=== PATIENT | female | born 1945 | race Caucasian/White ===

== ENCOUNTER → 2018-03-25 08:38 | Outpatient (CLI) | payer MEDICARE, OTHER, SELFPAY ==
[2018-03-25 10:04] LABS: AST(SGOT) 22 U/L (15-37); Alanine Aminotransfer ALT/SGPT 31 U/L (13-56); Albumin, Serum 3.8 g/dL (3.2-5.0); Alkaline Phosphatase 67 U/L (45-117); Bilirubin, Direct 0.13 mg/dL (0.00-0.30); Cholesterol 166 mg/dL (200); Globulin 3.4 g/dL (2.2-4.2); High Density Lipoprotein 51 mg/dL; Protein, Total 7.2 g/dL (6.4-8.2); Triglycerides 190 mg/dL; Very Low Density Lipoprotein 38 mg/dL (5-40)
== END ==
PROVIDERS: Nurse Practitioner Family; Family Provider Family Medicine; PCP Family Medicine; Visit Provider Internal Medicine Cardiovascular Disease
DX: E78.5 Hyperlipidemia, unspecified (principal); Z79.899 Other long term (current) drug therapy
CPT/HCPCS: 36415; 80061; 80076

== ENCOUNTER → 2019-03-19 | Outpatient (CLI) | payer MEDICARE, OTHER, SELFPAY ==
[2019-02-02 11:11] VITALS: BMI 27.6
--- NOTE | 2019-03-19 12:59 | ECHOD_ITS ---
Reason For Study: S/P AVR Procedure This was a 2D Doppler, Color Flow transthoracic echocardiogram. Exam performed in department. Left Ventricle Normal size and thickness. The estimated ejection fraction is 65 %. Stage 1 diastolic dysfunction. No regional wall motion abnormalities noted. Right Ventricle Mildly dilated right ventricle. Normal systolic function. Atria Normal left atrium. Normal right atrium. Normal atrial septum. Mitral Valve The mitral valve is structurally normal. No prolapse or stenosis seen. Tricuspid Valve Normal tricuspid valve. Mild (1+) tricuspid valve insufficiency. Right ventricular systolic pressure estimated to be 32 mmHg. Aortic Valve Peak aortic valve gradient 18 mmHg. Mean aortic valve gradient 11 mmHg. Trivial aortic valve insufficiency. Stable appearing bioprosthetic aortic valve apparatus. Pulmonic Valve Normal pulmonic valve. Trivial pulmonic valve insufficiency. Great Vessels Normal aortic root. Mild atherosclerosis of the aortic arch. Normal inferior vena cava. Inferior vena cava collapse with sniff. Pericardium/Pleural No pericardial effusion. MMode/2D Measurements & Calculations LVIDd: 4.1 cm IVSd: 1.0 cm LVOT diam: 1.9 cm LVIDs: 2.7 cm LVPWd: 0.99 cm LVOT area: 2.9 cm2 RVDd: 3.6 cm FS: 34.0 % Ao root diam: 2.8 cm LAV(MOD-sp4): 48.8 ml LA A4 area: 17.9 cm2 LA dimension(2D): 4.3 cm RA A4 area: 14.9 cm2 Time Measurements MV dec time: 0.21 sec Doppler Measurements & Calculations MV E max efrain: 91.0 cm/sec Lat Peak E' Efrain: 10.5 cm/sec Med Peak E' Efrain: 7.2 cm/sec MV A max efrain: 98.5 cm/sec E/E' lat: 8.6 E/E' med: 12.6 MV E/A: 0.92 Ao V2 max: 203.5 cm/sec LV V1 max: 119.8 cm/sec SV(LVOT): 83.2 ml Ao max P.6 mmHg LV V1 max P.7 mmHg Ao V2 mean: 141.9 cm/sec LV V1 mean P.3 mmHg Ao mean P.9 mmHg LV V1 mean: 87.1 cm/sec Ao V2 VTI: 46.5 cm LV V1 VTI: 29.0 cm SACHIN(I,D): 1.8 cm2 SACHIN(V,D): 1.7 cm2 PA V2 max: 91.4 cm/sec TR max efrain: 243.1 cm/sec TR max P.7 mmHg Interpretation Summary The estimated ejection fraction is 65 %. Stage 1 diastolic dysfunction. Mildly dilated right ventricle. Mild (1+) tricuspid valve insufficiency. Right ventricular systolic pressure estimated to be 32 mmHg. Trivial aortic valve insufficiency. Stable appearing and normal functioning bioprosthetic aortic valve apparatus. Compared to echo report dated 05/07/2017, no appreciable changes noted. Ordering Physician: Wil Rivas Referring Physician: Omar Salas Performed By: Yulissa Herrera RDCS, RVT
== END | disposition home or self-care (01) ==
LOC: CVS 12:59
PROVIDERS: Family Provider Family Medicine; PCP Family Medicine; Referring Provider Internal Medicine Cardiovascular Disease; Visit Provider Internal Medicine Cardiovascular Disease
DX: Z95.2 Presence of prosthetic heart valve (principal)
CPT/HCPCS: 93306

== ENCOUNTER → 2020-04-29 | Outpatient (CLI) | payer MEDICARE, OTHER, SELFPAY ==
[2020-04-29 12:02] VITALS: BMI 28.3
--- NOTE | 2020-04-29 14:53 | RAD_ITS ---
STUDY: X-RAY CHEST REASON FOR EXAM: Female, 74 years old. productive cough x several months TECHNIQUE: Frontal and lateral views COMPARISON: 05/07/2017. FINDINGS: Stable sternotomy wires. The lungs are clear and expanded. There is no demonstrated pleural abnormality. Normal size heart. Normal mediastinum and madan. Normal visualized pulmonary arteries. Normal visualized aortic arch and descending thoracic aorta. Degenerative vertebral changes and scoliosis. Prosthesis are noted at the shoulders. There is no demonstrated abnormality of the visualized soft tissue structures of the upper abdomen. RAD/Chest PA and Lateral IMPRESSION: Normal x-ray examination of the chest. Electronically Signed: Holden Glass DO at 15:37 EDT Tel [phone], Service support ,
== END | disposition home or self-care (01) ==
LOC: RAD 14:53
PROVIDERS: PCP Family Medicine; Referring Provider Internal Medicine Cardiovascular Disease; Visit Provider Internal Medicine Cardiovascular Disease
DX: R05 Cough (principal)
CPT/HCPCS: 71046

== ENCOUNTER → 2020-05-20 | Outpatient (CLI) | payer MEDICARE, OTHER, SELFPAY ==
[2020-04-29 12:02] VITALS: BMI 28.3
--- NOTE | 2020-05-20 09:52 | ECHOD_ITS ---
Reason For Study: VALVE REPLACEMENT EVAL Procedure This was a 2D Doppler, Color Flow transthoracic echocardiogram. Exam performed in department. Left Ventricle Normal size and thickness. The estimated ejection fraction is 65 %. Stage 1 diastolic dysfunction. No regional wall motion abnormalities noted. Right Ventricle Normal size and thickness. Normal systolic function. Atria Normal left atrium. Normal right atrium. Normal atrial septum. Mitral Valve The mitral valve is structurally normal. No prolapse or stenosis seen. Tricuspid Valve Normal tricuspid valve. Mild (1+) tricuspid valve insufficiency. Right ventricular systolic pressure estimated to be 33 mmHg. Aortic Valve Peak aortic valve gradient 17 mmHg. Mean aortic valve gradient 10 mmHg. Trivial aortic valve insufficiency. Stable appearing bioprosthetic aortic valve apparatus. Pulmonic Valve Normal pulmonic valve. Trivial pulmonic valve insufficiency. Great Vessels Normal aortic root. Normal arch. Normal inferior vena cava. Inferior vena cava collapse with sniff. Pericardium/Pleural No pericardial effusion. MMode/2D Measurements & Calculations LVIDd: 3.8 cm IVSd: 1.00 cm LVOT diam: 2.0 cm LVIDs: 2.6 cm LVPWd: 0.98 cm LVOT area: 3.0 cm2 RVDd: 3.2 cm FS: 31.1 % Ao root diam: 3.2 cm LAV(MOD-bp): 36.4 ml LVAd ap4: 25.9 cm2 LAV(MOD-bp) Indexed: 21.2 ml/m2 EDV(MOD-sp4): 72.0 ml LAV(MOD-sp2): 39.8 ml EDV(sp4-el): 75.4 ml LAV(MOD-sp4): 33.6 ml LVAs ap4: 14.4 cm2 ESV(MOD-sp4): 27.3 ml ESV(sp4-el): 27.7 ml EF(MOD-sp4): 62.0 % EF(sp4-el): 63.3 % SV(MOD-sp4): 44.6 ml SV(sp4-el): 47.7 ml LA A4 area: 14.4 cm2 LA dimension(2D): 4.4 cm RA A4 area: 11.7 cm2 Time Measurements MV dec time: 0.21 sec Doppler Measurements & Calculations MV E max efrain: 74.7 cm/sec Lat Peak E' Efrain: 10.2 cm/sec Med Peak E' Efrain: 6.9 cm/sec MV A max efrain: 109.2 cm/sec E/E' lat: 7.3 E/E' med: 10.8 MV E/A: 0.68 Ao V2 max: 208.1 cm/sec LV V1 max: 85.5 cm/sec SV(LVOT): 71.2 ml Ao max P.4 mmHg LV V1 max P.9 mmHg Ao V2 mean: 149.8 cm/sec LV V1 mean P.7 mmHg Ao mean P.1 mmHg LV V1 mean: 62.4 cm/sec Ao V2 VTI: 50.0 cm LV V1 VTI: 23.5 cm SACHIN(I,D): 1.4 cm2 SACHIN(V,D): 1.2 cm2 PA V2 max: 102.3 cm/sec PI end-d efrain: 109.6 cm/sec TR max efrain: 259.4 cm/sec TR max P.9 mmHg Interpretation Summary The estimated ejection fraction is 65 %. Stage 1 diastolic dysfunction. Mild (1+) tricuspid valve insufficiency. Right ventricular systolic pressure estimated to be 33 mmHg. Peak aortic valve gradient 17 mmHg. Mean aortic valve gradient 10 mmHg. Stable appearing and normal functioning bioprosthetic aortic valve apparatus. Trivial aortic valve insufficiency. Compared echo report dated 03/19/2019, no appreciable changes noted. Ordering Physician: Wil Rivas Referring Physician: DORI BAILEY III Performed By: aCssandra Jordan RDCS
[2020-05-20 12:04] LABS: AST(SGOT) 17 U/L (15-37); Alanine Aminotransfer ALT/SGPT 20 U/L (13-56); Albumin, Serum 3.8 g/dL (3.2-5.0); Alkaline Phosphatase 54 U/L (45-117); Cholesterol 147 mg/dL (200); Globulin 3.4 g/dL (2.2-4.2); High Density Lipoprotein 62 mg/dL; Protein, Total 7.2 g/dL (6.4-8.2); Triglycerides 85 mg/dL; Very Low Density Lipoprotein 17 mg/dL (5-40)
== END | disposition home or self-care (01) ==
PROVIDERS: PCP Family Medicine; Referring Provider Internal Medicine Cardiovascular Disease; Visit Provider Internal Medicine Cardiovascular Disease
DX: E78.5 Hyperlipidemia, unspecified (principal); Z95.2 Presence of prosthetic heart valve
CPT/HCPCS: 36415; 80061; 80076; 93306

== ENCOUNTER → 2021-03-09 07:00 | Outpatient (CLI) | payer MEDICARE, OTHER, SELFPAY ==
[2021-02-23 06:46] VITALS: BMI 28.0
[2021-03-09 08:36] LABS: Absolute Lymphocyte Count 1.47 X10^3/uL (0.83-4.51); Absolute Neutrophil Count 6.3 X10^3/uL (2.0-7.7); Basophil# 0.02 X10^3/uL; Basophil% 0.2 % (0-1); Eosinophil# 0.19 X10^3/uL; Eosinophils% 2.1 % (0-5); Hematocrit 36.4 % (37-47); Hemoglobin 11.6 g/dL (12.0-15.0); Lymphocyte # 1.47 X10^3/ul (0.83-4.51); Lymphocyte % 16.5 % (19-41); Mean Corp Hgb Conc 31.9 g/dL (32-36); Mean Corpuscular Hgb 30.1 pg (27.0-32.0); Mean Corpuscular Volume 94.3 fL (81-99); Mean Platelet Vol. 8.9 fl (6.2-12.0); Monocyte# 0.91 X10^3/uL; Monocyte% 10.2 % (0-10); NRBC Flagged by Analyzer 0 % (0-5); Neutrophil # 6.28 X10^3/uL (2.7-7.7); Neutrophil % 70.8 % (47-70); Platelet Count 310 K/mm3 (150-450); RBC Distribution Width CV 12.8 % (11.6-14.6); RBC Distribution Width SD 44.3 fl (35.1-43.9); Red Blood Count 3.86 M/mm3 (4.2-5.4); White Blood Count 8.9 K/mm3 (4.4-11.0)
--- NOTE | 2021-03-09 14:24 | PFTCOMP_ITS ---
COMPLETE PULMONARY FUNCTION TEST INTERPRETATION Brief HPI: Patient is a 75 year old female, currently under the care of Dr. Banks, who presents to [facility] for complete pulmonary function tests secondary to diagnosis of cough. Respiratory therapist reports good effort and reproducible results. Interpretation: Forced expiration spirometry shows no large airways obstructive ventilatory defect with an FEV1 of 106% predicted. There is no significant bronchodilator response by strict ATS criteria. Spirograms are of good quality and plateau slowly, indicating slowly emptying areas of the lungs. The respiratory flow volume loop shows decreased expiratory flow rates at high lung volumes consistent with small airways obstruction. Lung volumes by body plethysmography show a normal total lung capacity at 4.44 L, 97% predicted. All other lung volumes are within normal limits. Diffusion capacity by carbon monoxide is at the lower limit of normal at 64% predicted. The airway resistance is normal. No previous pulmonary function tests were available for review. Impression: Grossly normal pulmonary function test. DLCO is at the lower limit of normal and may constitute an early pulmonary vascular disorder.
[2021-03-15 03:07] LABS: Alternaria tenuis <0.10 kU/L (Class 0); Ash, White <0.10 kU/L (Class 0); Aspergillus fumigatus <0.10 kU/L (Class 0); Aspirgillus flavus Negative (Neg:<1:1); Aspirgillus fumigatus Negative (Neg:<1:1); Aspirgillus niger Negative (Neg:<1:1); Bermuda Grass <0.10 kU/L (Class 0); Birch <0.10 kU/L (Class 0); Black Walnut <0.10 kU/L (Class 0); Cat Hair / Dander,Stand <0.10 kU/L (Class 0); Cedar, Mountain <0.10 kU/L (Class 0); Cladosporium herbarum <0.10 kU/L (Class 0); Cockroach, American <0.10 kU/L (Class 0); Cottonwood <0.10 kU/L (Class 0); Cytoplasmic Ab (C-ANCA) <1:20 titer (Neg:<1:20); D farinae Mite <0.10 kU/L (Class 0); D pteronyssinus <0.10 kU/L (Class 0); Dog Epithelia <0.10 kU/L (Class 0); Elm, American White <0.10 kU/L (Class 0); Immunoglobulin E 9 IU/mL (6-495); Maple/Box Elder <0.10 kU/L (Class 0); Mulberry, White <0.10 kU/L (Class 0); Oak, White <0.10 kU/L (Class 0); Pecan <0.10 kU/L (Class 0); Penicillium Notatum <0.10 kU/L (Class 0); Pigweed, Rough <0.10 kU/L (Class 0); Ragweed, Short/Common <0.10 kU/L (Class 0); Russian Thistle <0.10 kU/L (Class 0); Sheep Sorrel <0.10 kU/L (Class 0); Sycamore, American <0.10 kU/L (Class 0); Timothy Grass <0.10 kU/L (Class 0)
[2021-03-15 13:22] LABS: Immunoglobulin E 9 IU/mL (6-495); Mouse Urine <0.10 kU/L (Class 0); Perinuclear Ab (P-ANCA) <1:20 titer (Neg:<1:20)
== END ==
PROVIDERS: PCP Internal Medicine; Referring Provider Internal Medicine Critical Care Medicine; Visit Provider Internal Medicine Critical Care Medicine
DX: R05 Cough (principal); E78.00 Pure hypercholesterolemia, unspecified
CPT/HCPCS: 36415; 82785; 85025; 86003; 86256; 86606; 94060; 94726; 94729

== ENCOUNTER 2021-03-09 14:39 | Emergency (ER) | payer MEDICARE, OTHER, SELFPAY ==
[2021-02-23 06:46] VITALS: BMI 28.0
[2021-03-09 14:41] VITALS: BP 148/67; PULSE 68; RESP 14; TEMP 36.8; O2SAT 97; BMI 28.3
--- NOTE | 2021-03-09 14:51 | RAD_ITS ---
STUDY: X-RAY CHEST REASON FOR EXAM: Female, 75 years old. Chest pain TECHNIQUE: Single AP portable view of the chest. COMPARISON: Comparison is made with prior study dated 04/29/2020. FINDINGS: EKG electrode are seen. The lungs are clear and expanded. There is no demonstrated pleural abnormality. Sternal cerclage wires are present from a prior sternotomy. Status post mitral valve replacement. Normal mediastinum and madan. Normal visualized pulmonary arteries. There is atherosclerotic tortuosity of the aortic arch and descending thoracic aorta. Normal visualized thoracic spine. Bilateral shoulder replacement. There is no demonstrated abnormality of the visualized soft tissue structures of the upper abdomen. RAD/Chest 1 View (Portable) IMPRESSION: Stable examination. Electronically Signed: Zhou Haley MD at 15:35 EDT , Service support ,
--- NOTE | 2021-03-09 14:51 | EKG12_ITS ---
Test Reason : CP Blood Pressure : / mmHG Vent. Rate : 066 BPM Atrial Rate : 066 BPM P-R Int : 188 ms QRS Dur : 086 ms QT Int : 410 ms P-R-T Axes : 023 030 055 degrees QTc Int : 429 ms Normal sinus rhythm Normal ECG Confirmed by ALEXANDRA DOOLEY, ANI ([id number]), development editor CHANTELL BROCK ([id number]) on 03/13/2021 1:53:25 PM Referred By: ASAD Confirmed By:ANI MORRIS MD
--- NOTE | 2021-03-09 14:52 | EDS_ITS ---
HPI History of Present Illness Chief Complaint: Chest Pain Informant: patient and family Narrative Narrative: 75-year-old female presents with chest pressure since yesterday. Patient has a history of aortic valve replacement in 2017. She states at that time she was told she had 50% blockage of an artery. She states she has been doing well from a cardiac standpoint. She now sees Dr. Mora. Her last cardiology visit was at the end of last month. The patient's recently of Covid. She saw a grief counselor today. She is very anxious about being in the hospital and is having a lot mental health concerns with learning to live her life without him. She notes that she has had a cough for many years and has seen many doctors without a diagnosis. She was referred to Dr. Banks from pulmonology and underwent pulmonary function testing this morning. She notes when she takes a deep breath she feels tightness in her chest [facility] Medical History COVID-19 (~08/31/20) history ofpleural effusions Hyperlipidemia Hypertension Psoriatic arthritis Secondary pulmonary arterial hypertension Home Medications acetaminophen 2 tab PO BID PRN PRN 02/06/17 [History Last Taken 05/02/17] cyanocobalamin (vitamin B-12) 1,000 mcg PO DAILY 02/06/17 [History Last Taken 05/01/17] flaxseed oil 1,000 mg PO DAILY 02/06/17 [History Last Taken 05/02/17] aspirin 81 mg tablet,delayed release 81 mg PO QDAY 10/02/17 [History Last Taken Unknown] calcium carb-vit D3-minerals 600 mg calcium-400 unit tablet 1 tab PO QDAY 10/02/17 [History Last Taken Unknown] metoprolol succinate 50 mg tablet,extended release 24 hr 50 mg PO DAILY #90 tab 10/09/18 [Rx Last Taken Unknown] melatonin 10 mg capsule 10 mg PO HS PRN 02/02/19 [History Last Taken Unknown] multivitamin 1 tab PO DAILY 02/02/19 [History Last Taken Unknown] losartan 50 mg-hydrochlorothiazide 12.5 mg tablet 1 tab PO BID #90 tab 10/07/20 [Rx Last Taken Unknown] ascorbic acid (vitamin C) 1,000 mg tablet 1 g PO BID tab 02/10/21 [History Last Taken Unknown] cholecalciferol (vitamin D3) 125 mcg (5,000 unit) tablet 125 mcg PO DAILY 02/10/21 [History Last Taken Unknown] omeprazole 40 mg capsule,delayed release 40 mg PO DAILY cap 02/10/21 [History Last Taken Unknown] zinc sulfate 50 mg zinc (220 mg) capsule 50 mg PO DAILY cap 02/10/21 [History Last Taken Unknown] albuterol sulfate 90 mcg/actuation aerosol inhaler 2 puff INHALATION Q4H PRN #8.5 g 02/23/21 [Rx Last Taken Unknown] fluticasone furoate 200 mcg-vilanterol 25 mcg/dose inhalation powder 1 inh INHALATION DAILY #60 ea 02/23/21 [Rx Last Taken Unknown] pravastatin 40 mg tablet 40 mg PO QHS #90 tab 03/03/21 [Rx Last Taken Unknown] Allergy/AdvReac Type Severity Reaction Status Date / Time meloxicam AdvReac Nausea Verified 03/09/21 14:53 methotrexate AdvReac Nausea Verified 03/09/21 14:53 NSAIDS (Non-Steroidal AdvReac Nausea Verified 03/09/21 14:53 Anti-Inflamma Sulfa (Sulfonamide AdvReac Nausea Verified 03/09/21 14:53 Antibiotics) Family History Brother Heart disease AV replaced and CABG X 1 CAD (coronary artery disease) CABG x 1 w/ AVR Surgical History H/O aortic valve replacement (~04/08/17) Social History Smoking Status: Former smoker how long ago did patient quit smokin + years ago alcohol intake: current alcohol intake frequency: a few times a week Alcohol type: hard liquor substance use type: does not use caffeine: Yes Type: coffee Number of servings: 2 ROS ROS ED Constitutional Constitutional ED: Denies chills or weight loss Eyes Eyes: Denies change in vision or diplopia ENT ENT ED: Denies ear pain, rhinorrhea or sore throat Cardiovascular Cardiovascular: Reports chest pain; Denies orthopnea, palpitations or racing heartbeat Respiratory/Chest Respiratory/Chest: Reports dyspnea; Denies cough or orthopnea Gastrointestinal Gastrointestinal: Denies abdominal pain, diarrhea, nausea or vomiting Genitourinary Genitourinary ED: Denies dysuria, hematuria or urinary frequency Musculoskeletal Musculoskeletal: Denies arthralgias or myalgias Integumentary Denies abscess or rash Neurologic Neurologic: Denies headache(s) or weakness Psychiatric Psychiatric: Denies anxiety, depression, suicidal ideation or suicidal thoughts Endocrine Endocrinology: Denies polydipsia, polyphagia or polyuria Allergic/Immunologic Allergic/Immunologic ED: Denies mouth swelling, tongue swelling or urticaria EXAM Physical Exam Const Vital Signs: 03/09/21 14:41 03/09/21 17:07 Temperature 98.2 F Temperature Source Oral Pulse Rate 68 66 Respiratory Rate 14 14 Blood Pressure 148/67 H 128/63 H Blood Pressure Mean 94 Pulse Ox 97 95 Oxygen Delivery Method Room Air Positive well nourished and well developed General Appearance ED: well developed HEENT Reports normocephalic, head/scalp atraumatic and moist mucous membranes Eyes PERRL and EOMs intact bilaterally Neck no lymphadenopathy, supple and no JVD Resp normal respiratory effort and clear to auscultation bilaterally Cardio regular rate, regular rhythm and no murmurs GI normal to inspection, nondistended, normoactive bowel sounds and non-tender Palpation: soft Back/Spine no CVA tenderness and normal ROM Extremity normal to inspection General Extremety ED: Negative for edema General Extremity: Negative for edema Neuro oriented x3 and CN's II-XII intact bilaterally Sensorium / Orientation: alert Motor Exam: strength 5/5 throughout Psych mental status grossly normal Mood & Affect: depressed and tearful Skin no rashes or lesions noted and no wounds Heart Score History: Slightly/Non-Suspicious ECG: Normal Age: >/= 65 years Risk Factors: 1 or 2 Risk Factors Troponin: </= Normal Limit Score: 3 MDM MDM MDM Narrative Medical decision making narrative: My interpretation of the patient's chest x- ray is no acute process. Radiology concurs. Patient's heart score is 3. Troponin negative. EKG normal sinus rhythm with no concerning features. D- dimer is elevated therefore a CTA of the chest was obtained and is negative for pulmonary embolism or dissection. Patient's had no events on the monitor. At this point I think the patient can be discharged home from the emergency room. I asked that she work with her legal financial specialist to obtain outpatient stress testing to complete the cardiac work-up. I did speak with on-call cardiology to help facilitate this. Patient is comfortable with this plan. Lab Data Attestation: I reviewed the patient's lab results. Labs: Laboratory Results - last 24 hr 03/09/21 03/09/21 03/09/21 14:45 14:45 14:45 WBC 10.2 RBC 3.91 L Hgb 11.9 L Hct 36.1 L MCV 92.3 MCH 30.4 MCHC 33.0 RDW Std Deviation 43.5 RDW Coeff of Lisa 12.9 Plt Count 335 MPV 9.0 Immature Gran % (Auto) 0.500 Neut % (Auto) 74.7 H Lymph % (Auto) 13.6 L Cottle % (Auto) 9.8 Eos % (Auto) 1.2 Baso % (Auto) 0.2 Absolute Neuts (auto) 7.7 Absolute Lymphs (auto) 1.39 Nucleated RBC % 0 D-Dimer Quant (PE/DVT) 3.06 H* Sodium 135 L Potassium 3.5 Chloride 98 Carbon Dioxide 29.0 Anion Gap 8 BUN 19 H Creatinine 0.84 Estim Creat Clear Calc 46.40 Est GFR (MDRD) Af Amer 85 Est GFR (MDRD) Non-Af 70 BUN/Creatinine Ratio 22.6 H Glucose 162 H Calcium 9.7 Troponin I < 0.015 Radiography Diagnostic Testing: Radiology Impression Chest X-Ray 03/09/21 14:51 IMPRESSION: Stable examination. Electronically Signed: Zhou Haley MD at 15:35 EDT , Service support , Chest CTA 03/09/21 15:45 IMPRESSION: 1. No demonstrated pulmonary embolism or arterial dissection. 2. No consolidation or pulmonary edema or pleural effusion is present. No nodules are seen. Minimal linear scarring is present in the apex of the left upper lobe. Electronically Signed: Marco Wood MD at 16:54 EDT , Service support , Discharge Plan Triage Chief Complaint: Chest Pain ED Provider: Wil Sims Dx/Rx/DC Orders Clinical Impression: Chest pain Instructions: ED Chest Pain, Uncertain Cause Prescriptions: No Action aspirin [Adult Low Dose Aspirin] 81 mg tablet,delayed release (DR/EC) 81 mg PO QDAY RF: 0 calcium carb-vit D3-minerals 600 mg calcium-400 unit tablet 600 mg calcium- 400 unit tablet 1 tab PO QDAY RF: 0 multivitamin tablet 1 tab PO DAILY RF: 0 melatonin 10 mg capsule 10 mg PO HS PRN (Reason: Sleep) RF: 0 losartan-hydrochlorothiazide 50-12.5 mg tablet 1 tab PO BID Qty: 90 RF: 3 omeprazole 40 mg capsule,delayed release(DR/EC) 40 mg PO DAILY RF: 0 ascorbic acid (vitamin C) 1,000 mg tablet 1 g PO BID RF: 0 zinc sulfate 50 mg zinc (220 mg) capsule 50 mg PO DAILY RF: 0 cholecalciferol (vitamin D3) 125 mcg (5,000 unit) tablet 125 mcg PO DAILY RF: 0 Breo Ellipta 200-25 mcg/dose blister with device 1 inh inhalation DAILY Qty: 60 RF: 6 albuterol sulfate 90 mcg/actuation HFA aerosol inhaler 2 puff inhalation Q4H PRN (Reason: shortness of breath or wheezing) Qty: 8.5 RF: 3 cyanocobalamin (vitamin B-12) 1,000 MCG tablet 1,000 mcg PO DAILY RF: 0 acetaminophen 650 MG tablet extended release 2 tab PO BID PRN PRN (Reason: arthritis) RF: 0 flaxseed oil 1,000 MG capsule 1,000 mg PO DAILY RF: 0 metoprolol succinate 50 mg tablet extended release 24 hr 50 mg PO DAILY Qty: 90 RF: 3 pravastatin 40 mg tablet 40 mg PO QHS Qty: 90 RF: 3 Primary Care Provider: Stacey Robledo Referrals: Yong Mora MD [STAFF PHYSICIAN] - As soon as possible Stacey Robledo MD [Primary Care Provider] - As Needed Disposition Disposition: Home, self care Discharge Date/Time: 03/09/21 17:12
[2021-03-09] MEDS: LORazepam 2 MG/ML Syringe 0.5 MG IV (14:59)
[2021-03-09 15:10] LABS: Absolute Lymphocyte Count 1.39 X10^3/uL (0.83-4.51); Absolute Neutrophil Count 7.7 X10^3/uL (2.0-7.7); Basophil# 0.02 X10^3/uL; Basophil% 0.2 % (0-1); Eosinophil# 0.12 X10^3/uL; Eosinophils% 1.2 % (0-5); Hematocrit 36.1 % (37-47); Hemoglobin 11.9 g/dL (12.0-15.0); Lymphocyte # 1.39 X10^3/ul (0.83-4.51); Lymphocyte % 13.6 % (19-41); Mean Corpuscular Hgb 30.4 pg (27.0-32.0); Mean Corpuscular Volume 92.3 fL (81-99); Monocyte% 9.8 % (0-10); NRBC Flagged by Analyzer 0 % (0-5); Neutrophil # 7.65 X10^3/uL (2.7-7.7); Neutrophil % 74.7 % (47-70); Platelet Count 335 K/mm3 (150-450); RBC Distribution Width CV 12.9 % (11.6-14.6); RBC Distribution Width SD 43.5 fl (35.1-43.9); Red Blood Count 3.91 M/mm3 (4.2-5.4); White Blood Count 10.2 K/mm3 (4.4-11.0)
[2021-03-09 15:25] LABS: Anion Gap 8 (5-15); BUN 19 mg/dL (7-18); BUN/Creat Ratio 22.6 RATIO (10-20); Calcium,Total 9.7 mg/dL (8.5-10.1); Chloride 98 mmol/L (98-107); Creatinine, Serum 0.84 mg/dL (0.55-1.02); EST Glomerular Filtration Rate 70 mL/min (>60); Est Glom Filt Rate - Afr Amer 85 mL/min (>60); Glucose 162 mg/dL (74-106); Potassium 3.5 mmol/L (3.5-5.1); Sodium Level 135 mmol/L (136-145)
[2021-03-09 15:38] LABS: D-Dimer Quantitative (DVT/PE) 3.06 FEU/ug/m (0.27-0.49)
--- NOTE | 2021-03-09 15:45 | CT_ITS ---
STUDY: CTA CHEST REASON FOR EXAM: Female, 75 years old. Chest pain elevated d dimer RADIATION DOSAGE (If Supplied By Facility): CTDIvol = ( 7.72 ) mGy, DLP = ( 340.25 ) mGycm TECHNIQUE: The examination was performed with the intravenous administration of IV 100ML ISOVUE 300. Post-processing of the angiographic images was performed, with multiplanar reformation and 3D reconstruction. Individualized dose optimization techniques were used for this CT. COMPARISON: Chest x-ray dated MARCH 09, 2021. CT of the chest dated May 02, 2017 FINDINGS: Normal enhancement of the main pulmonary artery and right and left pulmonary arteries. Normal enhancement of the bilateral peripheral pulmonary arteries. There is no demonstrated pulmonary embolism. Normal thoracic aorta and visualized great vessels. There is no demonstrated aortic dissection. Sternal cerclage wires and vascular clips are present from a prior sternotomy and coronary artery bypass graft procedure (CABG). Normal heart size. No pericardial effusion is seen. Normal mediastinum. Normal hilar regions. Normal visualized trachea and bronchi. The lungs are well expanded. Normal pulmonary parenchyma. No consolidation or pulmonary edema or pleural effusion is present. No nodules are seen. Minimal linear scarring is present in the apex of the left upper lobe. Normal pleura. Normal chest wall structures. There are degenerative changes of thoracic spine. Unremarkable visualized upper abdomen. Small hiatal hernia noted. CT/CTA Chest W/WO Contrast IMPRESSION: 1. No demonstrated pulmonary embolism or arterial dissection. 2. No consolidation or pulmonary edema or pleural effusion is present. No nodules are seen. Minimal linear scarring is present in the apex of the left upper lobe. Electronically Signed: Marco Wood MD at 16:54 EDT , Service support ,
[2021-03-09 17:07] VITALS: BP 128/63; PULSE 66; RESP 14; O2SAT 95
== END 2021-03-09 17:12 | disposition home or self-care (01) ==
PROVIDERS: Emergency Provider Emergency Medicine; PCP Internal Medicine
DX: R07.89 Other chest pain (principal); R05 Cough; E78.00 Pure hypercholesterolemia, unspecified; I10 Essential (primary) hypertension; L40.50 Arthropathic psoriasis, unspecified; Z79.899 Other long term (current) drug therapy; Z87.891 Personal history of nicotine dependence
CPT/HCPCS: 36415; 71045; 71275; 80048; 82785; 84484; 85025; 85379; 86003; 86256; 86606; 93005; 94060; 94726; 94729; 96374; 99284; Q9967

== ENCOUNTER → 2021-03-16 11:13 | Outpatient (CLI) | payer MEDICARE, OTHER, SELFPAY ==
[2021-03-15 15:58] VITALS: BMI 27.8
== END ==
PROVIDERS: PCP Internal Medicine; Referring Provider Internal Medicine Cardiovascular Disease; Visit Provider Internal Medicine Cardiovascular Disease
DX: E78.00 Pure hypercholesterolemia, unspecified (principal)
CPT/HCPCS: 36415; 86141

== ENCOUNTER → 2021-03-31 06:43 | Outpatient (CLI) | payer MEDICARE, OTHER, SELFPAY ==
[2021-03-15 15:58] VITALS: BMI 27.8
--- NOTE | 2021-03-31 10:44 | STRESSREP ---
Stress Test Report Exercise myocardial perfusion stress test. 75-year-old lady with a history of aortic valve replacement and chest discomfort. Stress protocol: Resting EKG demonstrates sinus bradycardia with a rate of 53 bpm resting blood pressure is 110/62 mmHg. The patient exercised according to the regular Rocky protocol for a total duration of 6 minutes and 15 seconds. The maximum heart rate attained was 112 bpm which was 78% of maximum predicted heart rate the maximum workload was 7.3 metabolic equivalents. Patient completed 15 seconds into stage III of the Rocky protocol. At rest there were no ST or T wave changes noted to suggest ischemia at peak exercise upsloping ST changes were noted which did not meet the criteria for ischemia. The peak blood pressure was 168/58 mmHg. The test was terminated due to fatigue. No chest pain was noted no arrhythmias were noted. Myocardial perfusion protocol. 11.3 mCi of technetium 99m sestamibi was injected at rest. The patient exercised according to regular Rocky protocol. At peak exercise 32.2 mCi of technetium 99m sestamibi was injected stress images were obtained stress and rest images were reconstructed and compared in the short axis vertical long and horizontal long axis. Gated images were also obtained. Perfusion SPECT analysis: Review of the stress images demonstrate normal uptake of tracer noted in all areas of the myocardium. The resting images similarly demonstrate normal uptake of tracer noted in all areas of the myocardium. No areas of reversibility are noted to suggest ischemia and no previous infarct is noted. Gated SPECT analysis: The gated ejection fraction is 73%. Conclusion: Normal exercise myocardial perfusion stress test at a moderate workload. No clinical angina noted. Preserved ejection fraction.
== END ==
PROVIDERS: PCP Internal Medicine; Referring Provider Internal Medicine Cardiovascular Disease; Visit Provider Internal Medicine Cardiovascular Disease
DX: I25.10 Atherosclerotic heart disease of native coronary artery without angina pectoris (principal); I25.119 Atherosclerotic heart disease of native coronary artery with unspecified angina pectoris; I35.0 Nonrheumatic aortic (valve) stenosis; E78.00 Pure hypercholesterolemia, unspecified; I10 Essential (primary) hypertension; R07.9 Chest pain, unspecified; Z95.2 Presence of prosthetic heart valve
CPT/HCPCS: 78452; 93017; A9500; A4216

== ENCOUNTER → 2021-08-11 | Outpatient (CLI) | payer MEDICARE, OTHER, SELFPAY ==
[2021-08-11 14:52] LABS: Bacteria 0 SEEN /hpf (None Seen); Mucous, Urine 0 SEEN /hpf (<or=2+); Red Blood Cells-Urine 0 SEEN /hpf (0-5); Squamous Epithelial Cells - UA 0 SEEN /hpf (5-10); White Blood Cells 0 SEEN /hpf (0-5)
[2021-08-11 15:43] LABS: Color, Urine Yellow (Yellow); Glucose, Dipstick Normal (Normal); Ketone-Dipstick Negative (Negative); Leukocyte Esterase-Dipstick Negative /ul (Negative); Nitrite-Dipstick Negative (Negative); Occult Blood-Urine Negative /ul (Negative); Protein-Dipstick Negative (Negative); Specific Gravity, Urine 1.015 (1.002-1.030); Urine Bilirubin Dipstick Negative (Negative); Urine Clarity Clear (Clear); Urine Urobilinogen Normal (Normal); Urine pH 6.5 (5.0 - 8.0)
== END | disposition home or self-care (01) ==
LOC: LABSPEC 14:51
PROVIDERS: PCP Internal Medicine; Referring Provider Physician Assistant; Visit Provider Physician Assistant
DX: N39.0 Urinary tract infection, site not specified (principal)
CPT/HCPCS: 81001

== ENCOUNTER → 2022-02-22 | Outpatient (CLI) | payer MEDICARE, OTHER, SELFPAY ==
--- NOTE | 2022-02-22 12:25 | RAD_ITS ---
INDICATION: chest pain EXAMINATION/TECHNIQUE: X-RAY - XR Chest 2 Views COMPARISON: Chest radiograph from 03/09/2021 FINDINGS: Support devices: None. No focal consolidations, effusions, or sizable pneumothorax. Cardiomediastinal silhouette is within normal limits. Stable and intact appearance of midline sternotomy wires and bilateral partially visualized shoulder arthroplasty surgical hardware. Stable mild dextro scoliotic curvature of the lumbar spine. RAD/Chest PA and Lateral IMPRESSION: No radiographic evidence of acute cardiopulmonary disease. Stable exam since 03/09/2021. Electronically Signed: Jeffery Zavala, at 14:31 EDT ,
[2022-02-22 13:08] LABS: Absolute Lymphocyte Count 1.39 X10^3/uL (0.83-4.51); Absolute Neutrophil Count 4.8 X10^3/uL (2.0-7.7); Basophil# 0.03 X10^3/uL; Basophil% 0.4 % (0-1); Eosinophil# 0.16 X10^3/uL; Eosinophils% 2.3 % (0-5); Hematocrit 39.3 % (37-47); Hemoglobin 13.2 g/dL (12.0-15.0); Lymphocyte # 1.39 X10^3/ul (0.83-4.51); Lymphocyte % 19.7 % (19-41); Mean Corp Hgb Conc 33.6 g/dL (32-36); Mean Corpuscular Hgb 31.5 pg (27.0-32.0); Mean Corpuscular Volume 93.8 fL (81-99); Monocyte# 0.68 X10^3/uL; Monocyte% 9.6 % (0-10); NRBC Flagged by Analyzer 0 % (0-5); Neutrophil # 4.75 X10^3/uL (2.7-7.7); Neutrophil % 67.4 % (47-70); Platelet Count 318 K/mm3 (150-450); RBC Distribution Width CV 12.7 % (11.6-14.6); Red Blood Count 4.19 M/mm3 (4.2-5.4); White Blood Count 7.1 K/mm3 (4.4-11.0)
[2022-02-22 13:35] LABS: Anion Gap 7 (5-15); BUN 23 mg/dL (7-18); BUN/Creat Ratio 29.6 RATIO (10-20); Chloride 98 mmol/L (98-107); Creatinine, Serum 0.78 mg/dL (0.55-1.02); EST Glomerular Filtration Rate 76 mL/min (>60); Est Glom Filt Rate - Afr Amer 92 mL/min (>60); Glucose 112 mg/dL (74-106); Potassium 3.6 mmol/L (3.5-5.1); Sodium Level 135 mmol/L (136-145)
== END | disposition home or self-care (01) ==
PROVIDERS: PCP Internal Medicine; Referring Provider Internal Medicine Cardiovascular Disease; Visit Provider Internal Medicine Cardiovascular Disease
DX: I10 Essential (primary) hypertension (principal); R06.00 Dyspnea, unspecified; E78.00 Pure hypercholesterolemia, unspecified; E78.5 Hyperlipidemia, unspecified; Z95.2 Presence of prosthetic heart valve
CPT/HCPCS: 36415; 71046; 80048; 85025

== ENCOUNTER 2022-03-02 15:11 | Observation (INO) | payer MEDICARE, OTHER, SELFPAY ==
[2022-03-01 08:40] VITALS: BMI 28.3
[2022-03-02] VITALS (21 sets, daily range): BP systolic 115–158; BP diastolic 55–89; PULSE 52–77; RESP 16–18; TEMP 36.2–36.6; O2SAT 63–98
--- NOTE | 2022-03-02 10:49 | CL.D_ITS ---
Patient Name: KARYN MULLER Study Date: 03/02/2022 Performing: Yong Mora MD Ht: 62.99 inches 160 cm : 1945 Wt: 160.94 lbs 73 kg Age: 76 Gender: female BSA: 1.76 PROCEDURE(S) PERFORMED DC02-([id number])[facility] PROFILE AND INDICATIONS Indications: Suspected CAD Heart Failure: None Stress/Imaging Stress/Image Study Performed: No CAD Presentations: Unstable angina. CONCLUSIONS Significant mid LAD and diagonal disease with mild disease noted in the circumflex artery and right c oronary artery. RECOMMENDATIONS Referred for immediate PCI DESCRIPTION OF PROCEDURE The patient arrived to the procedure lab. The risks and benefits of the procedure as well as a full d escription of our services here and current unavailability of surgical backup were fully explained to the patient and/or their significant other prior to the catheterization. The Timeout was completed, verifying the correct patient and procedure. The patient's procedural site was prepped and draped in the usual fashion. Local anesthetic was given subcutaneously to right radial region with Lidocaine 2% . Using a modified Seldinger technique, arterial access was obtained via the right radial artery, a 6 Fr sheath was inserted. Left Coronary Artery selective angiography was performed in multiple views u sing a 5 Fr. 4.0 [place] catheter. Right Coronary Artery selective angiography was then performed in mu ltiple views using a 5 Fr. 4.0 [place] catheter. CORONARY ANGIOGRAPHY DOMINANCE: Right Dominant LEFT HEART ASSESSMENT LEFT MAIN: Angiographically normal LEFT ANTERIOR DESCENDING ARTERY: MID LAD: 70 % Stenosis DIAGONAL 1: Proximal - 50 % Stenosis CIRCUMFLEX ARTERY: Mild luminal irregularities RIGHT CORONARY ARTERY: Mild luminal irregularities less than 30% VALVE FINDINGS: Prosthetic aortic valve stable COMPLICATIONS PROCEDURE MEDICATIONS Versed 1 mg IV Fentanyl 50 mcg IV Versed 1 mg IV Oxygen: 2 L/min via nasal cannula Heparin given IA 03/02/2022 10:20:54 Heparin 3000 unit(s) IV 03/02/2022 10:41:15 Verapamil 2.5mg, Ntg 100mcgs, 3000 units of Heparin given IA 03/02/2022 10:20:54 SUMMARY OF HEMODYNAMIC DATA Time AIR REST ECG 09:19:35 Art 156/59 (92) 10:14:18 AO 127/62 (91) SA 10:34:05 Signed By Yong Mora MD On 03/02/2022 10:48:03 AM Yong Mora MD
--- NOTE | 2022-03-02 11:28 | CL.I_ITS ---
Patient Name: KARYN MULLER Study Date: 03/02/2022 Performing: Emerson Jean MD Ht: 62.99 inches 160 cm : 1945 Wt: 160.94 lbs 73 kg Age: 76 Gender: female BSA: 1.76 PROCEDURE(S) PERFORMED IC12-([id number])PAIGE W/WO PTCA, SINGLE CORONARY ARTERY IC02-([id number])PTCA, EACH ADD'L CORONARY ART, SAME MAJOR CLINICAL PROFILE AND CO-MORBIDITIES Indications: Suspected CAD Heart Failure: None Stress/Imaging Stress/Image Study Performed: No CAD Presentations: Unstable angina. CONCLUSIONS Successful PCI of proximal LAD/diagonal 2 bifurcation with drug-eluting stent to LAD and PTCA alone t o diagonal 2 RECOMMENDATIONS DESCRIPTION OF PROCEDURE The patient arrived to the procedure lab. The risks and benefits of the procedure as well as a full d escription of our services here and current unavailability of surgical backup were fully explained to the patient and/or their significant other prior to the catheterization. The Timeout was completed, verifying the correct patient and procedure. The patient's procedural site was prepped and draped in the usual fashion. Local anesthetic was given subcutaneously to right radial region with Lidocaine 2% Using a modified Seldinger technique,arterial access was obtained via the right radial artery, a 6Fr sheath was inserted. Left Coronary Artery selective angiography was performed in multiple views usin g a 5 Fr. 4.0 [place] catheter. Right Coronary Artery selective angiography was then performed in multi ple views using a 5 Fr. 4.0 [place] catheter.The images were reviewed and options discussed. A decision was then made to proceed with an Intervention, IVUS or other adjunct procedure. xb3 Guide catheter was inserted and engaged into the LCA. bmw Guide wire was advanced to the Circ umflex. runthrough Guide wire was advanced to the LAD. osiro 3.5 x 18 Drug Eluting stent was advanced across the lesion in the LAD, proximal. Angiogram performed pre stent deployment. Angiogram performe d post stent deployment. runthrough Guide wire was repositioned to the 2nd Diagonal emerge 2.00 x 12 Balloon catheter was advanced across lesion in the second diagonal, ostial PTCA balloon inflated at 1 4 atms for 21 secs. Angiogram performed post balloon dilatation. emerge 3.00 x 12 Balloon catheter wa s advanced across lesion in the prox lad Angiogram performed post balloon dilatation. Angiogram perfo rmed post balloon dilatation. The arterial sheath was pulled and a TR Band was applied for hemostas is INTERVENTION INFORMATION LESION SITE: LAD (Proximal) Lesion Complexity: High/C, chronic total occlusion: No, lesion at bifurcation: Yes, thrombus present: No, lesion length: 15 mm, culprit lesion: Yes, Previously treated lesion: No Pre Stenosis: 80 % Pre intervention MICHELLE flow: 3 PROCEDURE: Drug Eluting Stent with post dilatation Post Stenosis: 0 % Post intervention MICHELLE flow: 3 Lesion Devices: Reyes .014 BMW [place] Straight 190cm Cardinal 6 Fr XB3.0 100cm Guide Catheter Terumo .014 Runthrough Extra Floppy 180cm straight AVA.ai [facility] MR PAIGE 3.5x18 LESION SITE: 2nd Diagonal (Ostial) Lesion Complexity: High/C, chronic total occlusion: No, lesion at bifurcation: Yes, thrombus present: No, lesion length: 6 mm, culprit lesion: Yes Pre Stenosis: 80 % Pre intervention MICHELLE flow: 3 PROCEDURE: Balloon Angioplasty Kissing balloon inflation was performed with a 2.0 x 12 balloon in the D2 and 3.0 x 12 mm balloon in the LAD inflated to 6 mayda Post Stenosis: 30 % Post intervention MICHELLE flow: 3 Lesion Devices: Terumo .014 Runthrough Extra Floppy 180cm straight Xu Sci EMERGE MR 2.00x12 BALLOON Xu Sci EMERGE MR 3.00x12 BALLOON COMPLICATIONS No Complications PROCEDURE MEDICATIONS Versed 1 mg IV Fentanyl 50 mcg IV Versed 1 mg IV Oxygen: 2 L/min via nasal cannula Brilinta 180 mg PO @ 03/02/2022 10:56:20 Heparin given IA 03/02/2022 10:20:54 Heparin 3000 unit(s) IV 03/02/2022 10:41:15 Verapamil 2.5mg, Ntg 100mcgs, 3000 units of Heparin given IA 03/02/2022 10:20:54 SUMMARY OF HEMODYNAMIC DATA Time AIR REST ECG 09:19:35 Art 156/59 (92) 10:14:18 AO 127/62 (91) SA 10:34:05 RM AIR REST 11:25:02 Signed By Emerson Jean MD On 03/02/2022 11:27:58 Emerson Jean MD
[2022-03-02] MEDS: 0.9% Normal Saline 1,000 ML 60 ML IV (12:31)
--- NOTE | 2022-03-02 13:01 | CRPHASE1_ITS ---
Patient Communication PHII Cardiac Rehab Discussed with Patient:: Yes Guide to Cardiac Rehab Given to Patient:: Yes Cardiac Rehab Facility Choice List Given to Patient:: Yes Choice Program [facility] CR PHII:: Communication Given to CR Choice Program Other:: Communication Given to CR Refer Phase II Cardiac Rehab:: Yes Sessions:: 36 sessions - 3 days/wk, 12 weeks Cardiac Rehabilitation Info Cardiac Rehabilitation Program Information: Cardiac Rehabilitation is important for patients like you who are recovering from a heart problem. Cardiac rehabilitation programs are recognized as integral to the continued care of the patient with coronary heart disease. The cardiac rehabilitation program is designed to optimize a patient's physical, psychological, and social functioning. Health child care center administrator work in cardiac rehabilitation programs and assist you with getting the treatments you need to get stronger and healthier - like exercise, healthy eating habits, and medications. Cardiac rehabilitation has been show to help people with heart problems live longer and have better life enjoyment than people who do not go to cardiac rehabilitation. Please contact the Cardiac Rehabilitation Program at [facility] at in two weeks if you have not heard from them.
--- NOTE | 2022-03-02 13:02 | CRPH1.INSTRU ---
General Education CAD and cardiac anatomy and function:: Patient communicates acknowledgment Explanation of diagnoses and procedures:: Patient communicates acknowledgment Sign/Symptoms of VT:: Patient communicates acknowledgment Antiplatelet therapy: Patient communicates acknowledgment Smoking Patient Nicotine/Smoking Risk Factors Are:: Non-smoker Recommendations Include:: Previous smoker; encourage continued cessation Nicotine/Smoking Response Code:: Patient communicates acknowledgment Dyslipidemia Patient Dyslipidemia Risk Factors Are:: Total Cholesterol, Triglycerides, HDL, LDL Recommendations Include:: Lipid profile provided, Reviewed NCEP/ATP guidelines, Therapeutic Lifestyle Change dietary guidelines Dyslipidemia Response Code:: Patient communicates acknowledgment Overweight/Obesity Patient Overweight/Obesity Risk Factors Are:: BMI Normal [24-29 & > 65 years old] Overweight/Obesity:: Patient communicates acknowledgment Hypertension Recommendations Include:: Maintain BP <130/85, DASH dietary guidelines, Decrease/maintain normal body weight, Moderation of ETOH Hypertension:: Patient communicates acknowledgment Diabetes Patient Diabetes Risk Factors Are:: No documented hx of diabetes Sedentary Patient Sedentary Risk Factors Are:: Lack of regular exercise Recommendations Include:: Aerobic exercise 5-7 times/week for 20-30 minutes continuously, Benefits of regular exercise, Discussed home walking program, Monitored Outpatient Cardiac Rehab Sedentary Response Code:: Patient communicates acknowledgment Stress Recommendations Include:: Identification of stressors, and assessment of coping skills, Stress management techniques Stress Response Code:: Patient communicates acknowledgment
--- NOTE | 2022-03-02 15:44 | CASEMGMT ---
DOMINIC CONDON NOTE: Pt to be discharged home on Brilinta. DOMINIC CONDON to room. Brilinta savings card given to pt and instructed on use. Questions answered. Pt aware, if refills are not affordable, to discuss other options w/rod buster. Pt confirms she has prescription coverage and wants scripts sent to [facility]. Pt lives alone. She denies having any further discharge planning needs or concerns. Flor SALEH RN CM
[2022-03-02] MEDS: Albuterol 2.5 MG/3 ML VIAL.NEB. INHALATION (19:04)
[2022-03-02] MEDS: Budesonide Respules 0.5 MG/2 ML AMPUL.NEB. INHALATION (19:04)
[2022-03-02] MEDS: TICAGRELOR 90 MG TABLET PO (20:52)
[2022-03-02] MEDS: Pravastatin 40 MG Tablet PO (20:52)
[2022-03-02] MEDS: hydroCHLOROthiazide 12.5mg 12.5 MG PO (20:53)
[2022-03-02] MEDS: Losartan Potassium 50 MG Tablet PO (20:54)
[2022-03-02] MEDS: Metoprolol(XL)Succ 50 MG Tablet PO (22:00)
[2022-03-02] MEDS: Zolpidem Tartrate 5 MG Tablet PO (22:00)
[2022-03-03 04:18] VITALS: PULSE 71
[2022-03-03 05:15] VITALS: BP 139/58; PULSE 62; RESP 14; TEMP 36.6; O2SAT 94
[2022-03-03] MEDS: Acetaminophen 500 MG Tablet 1000 MG PO (05:27)
[2022-03-03 06:30] LABS: Hematocrit 37.8 % (37-47); Hemoglobin 12.4 g/dL (12.0-15.0); Mean Corp Hgb Conc 32.8 g/dL (32-36); Mean Corpuscular Hgb 31.1 pg (27.0-32.0); Mean Corpuscular Volume 94.7 fL (81-99); Mean Platelet Vol. 8.9 fl (6.2-12.0); Platelet Count 282 K/mm3 (150-450); RBC Distribution Width CV 12.4 % (11.6-14.6); RBC Distribution Width SD 43.3 fl (35.1-43.9); Red Blood Count 3.99 M/mm3 (4.2-5.4); White Blood Count 7.8 K/mm3 (4.4-11.0)
[2022-03-03 06:40] VITALS: PULSE 78; RESP 16; O2SAT 96
[2022-03-03] MEDS: Albuterol 2.5 MG/3 ML VIAL.NEB. INHALATION (06:40)
[2022-03-03] MEDS: Budesonide Respules 0.5 MG/2 ML AMPUL.NEB. INHALATION (06:40)
[2022-03-03 06:49] VITALS: PULSE 61
[2022-03-03 06:56] LABS: ALB/GLOB Ratio 1.1 RATIO (0.9-2.4); AST(SGOT) 18 U/L (15-37); Alanine Aminotransfer ALT/SGPT 29 U/L (13-56); Albumin, Serum 3.5 g/dL (3.2-5.0); Alkaline Phosphatase 50 U/L (45-117); Anion Gap 7 (5-15); BUN 17 mg/dL (7-18); BUN/Creat Ratio 24.3 RATIO (10-20); Chloride 101 mmol/L (98-107); EST Glomerular Filtration Rate 86 mL/min (>60); Est Glom Filt Rate - Afr Amer 104 mL/min (>60); Estimated Creatinine Clearance 38.35 ml/min; Globulin 3.3 g/dL (2.2-4.2); Glucose 129 mg/dL (74-106); Potassium 3.7 mmol/L (3.5-5.1); Protein, Total 6.8 g/dL (6.4-8.2); Sodium Level 136 mmol/L (136-145)
[2022-03-03 08:45] VITALS: BP 114/58; PULSE 72; RESP 17; TEMP 36.6; O2SAT 97
[2022-03-03] MEDS: Calcium Carb/Vitamin D 1 TABLET Tablet PO (08:53)
[2022-03-03] MEDS: Losartan Potassium 50 MG Tablet PO (08:53)
[2022-03-03] MEDS: Cyanocobalamin 500 MCG Tablet 1000 MCG PO (08:53)
[2022-03-03] MEDS: Cholecalciferol (Vit D3) 125 MCG CAPSULE (5,000 UNITS) PO (08:53)
[2022-03-03] MEDS: Multivitamins,Therapeutic Tablet 1 TABLET PO (08:54)
[2022-03-03] MEDS: Aspirin E.C. 81 MG Tablet PO (08:54)
[2022-03-03] MEDS: TICAGRELOR 90 MG TABLET PO (08:54)
[2022-03-03] MEDS: hydroCHLOROthiazide 12.5mg 12.5 MG PO (08:54)
[2022-03-03] MEDS: Ascorbic Acid 500 MG Tablet 1000 MG PO (08:54)
--- NOTE | 2022-03-03 10:00 | EKG12_ITS ---
Test Reason : PCI Blood Pressure : / mmHG Vent. Rate : 053 BPM Atrial Rate : 053 BPM P-R Int : 240 ms QRS Dur : 092 ms QT Int : 478 ms P-R-T Axes : 028 013 046 degrees QTc Int : 448 ms Sinus bradycardia with 1st degree A-V block Anteroseptal infarct , age undetermined Abnormal ECG When compared with ECG of 09-MAR-2021 14:51, MS interval has increased Confirmed by ALEXANDRA DOOLEY, YONG ([id number]), newspaper editor CHANTELL BROCK ([id number]) on 03/06/2022 1:13:27 PM Referred By: Yong Mora Confirmed By:YONG MORA MD
--- NOTE | 2022-03-03 10:14 | PN.CARD_ITS ---
Subjective Subjective Patient seen and evaluated. She is doing well at this time. Objective Data Vital Signs: Vital Signs Temp Pulse Resp BP Pulse Ox 97.8 F 72 17 114/58 L 97 03/03/22 08:45 03/03/22 08:45 03/03/22 08:45 03/03/22 08:45 03/03/22 08:45 Oxygen Delivery Method Room Air Weight: 160 lb Body Mass Index (BMI) 28.3 Intake & Output: Intake and Output for Last 24 Hours 03/01/22 03/02/22 03/03/22 23:59 23:59 23:59 Intake Total 1099 / 1339 560 / 560 Balance 1099 / 1339 560 / 560 Lab / Micro Data Result Diagrams: 03/03/22 05:41 03/03/22 05:41 Labs: Laboratory Results - last 24 hr 03/03/22 05:41: WBC 7.8, RBC 3.99 L, Hgb 12.4, Hct 37.8, MCV 94.7, MCH 31.1, MCHC 32.8, RDW Std Deviation 43.3, RDW Coeff of Lisa 12.4, Plt Count 282, MPV 8.9 03/03/22 05:41: Sodium 136, Potassium 3.7, Chloride 101, Carbon Dioxide 28.0, Anion Gap 7, BUN 17, Creatinine 0.70, Estim Creat Clear Calc 38.35, Est GFR (MDRD) Af Amer 104, Est GFR (MDRD) Non-Af 86, BUN/Creatinine Ratio 24.3 H, Gluco se 129 H, Calcium 9.0, Total Bilirubin 0.30, AST 18, ALT 29, Alkaline Phosphatase 50, Total Protein 6.8, Albumin 3.5, Globulin 3.3, Albumin/Globulin Ratio 1.1 Cardiology Labs/Tests 03/03/22 05:41: WBC 7.8, RBC 3.99 L, Hgb 12.4, Hct 37.8, MCV 94.7, MCH 31.1, MCHC 32.8, Plt Count 282, MPV 8.9 03/03/22 05:41: Sodium 136, Potassium 3.7, Chloride 101, Carbon Dioxide 28.0, Anion Gap 7, BUN 17, Creatinine 0.70, Est GFR (MDRD) Af Amer 104, Est GFR (MDRD) Non-Af 86, BUN/Creatinine Ratio 24.3 H, Glucose 129 H, Calcium 9.0, Total Bilirubin 0.30 Rhythm: EKG: ECHO: Stress Test: Cardiac Cath: PCI: CT Surgery: Holter monitor: EPS: PPM: CXR: Chest CT Scan: Physical Exam Const alert, oriented x3 and no apparent distress General Appearance: cooperative HEENT hearing grossly normal bilaterally Head and Scalp: atraumatic Eyes EOMs intact bilaterally Neck General: normal visual inspection Chest inspection of chest normal and palpation of chest normal Resp normal respiratory effort Auscultation: clear to auscultation bilaterally Cardio regular rate, regular rhythm, S1 normal heart sound and S2 normal heart sound Jugular Venous Distention: JVD GI normal to inspection, nondistended, normoactive bowel sounds Extremity normal capillary refill and no pedal edema Peripheral Pulses: Yes pulses 2+ throughout and femoral pulses present Skin no rashes or lesions noted Neuro oriented x3 and CN's II-XII intact bilaterally Psych Appearance: grossly normal and appropriate Assessment & Plan Assessment/Plan (1) History of coronary artery stent placement: PLAN: Status post angioplasty and stenting of the left anterior descending artery. She appears to be doing well. The plan to be to discharge for outpatient follow-up in cardiac rehabilitation. (2) H/O aortic valve replacement: PLAN: She is status post aortic valve replacement. Aortic valve integrity appears to be stable. I would not recommend we make any changes. (3) Essential (primary) hypertension: PLAN: She does have a history of hypertension. Her blood pressure is under good control at this time and I would not recommend we make any changes.
--- NOTE | 2022-03-03 11:14 | PCM.DC ---
Discharge Instructions Follow Up Care Test Results: Test results from this visit will be discussed in further detail at your follow-up appointment, if applicable. Discharge Plan Admission Admit Date/Time: 03/02/22 15:11 Attending Provider: Yong Mora Primary Care Provider: Stacey Robledo Discharge Orders/Prescriptions Prescriptions: New Brilinta 90 mg Tablet 90 mg PO BID Qty: 180 RF: 3 Continued aspirin [Adult Low Dose Aspirin] 81 mg tablet,delayed release (DR/EC) 81 mg PO QDAY RF: 0 calcium carb-vit D3-minerals 600 mg calcium-400 unit tablet 600 mg calcium- 400 unit tablet 1 tab PO QDAY RF: 0 multivitamin tablet 1 tab PO DAILY RF: 0 melatonin 10 mg capsule 10 mg PO HS PRN (Reason: Sleep) RF: 0 ascorbic acid (vitamin C) 1,000 mg tablet 1 g PO BID RF: 0 cholecalciferol (vitamin D3) 125 mcg (5,000 unit) tablet 125 mcg PO DAILY RF: 0 losartan-hydrochlorothiazide 50-12.5 mg tablet 1 tab PO BID Qty: 180 RF: 3 metoprolol succinate 50 mg tablet extended release 24 hr 50 mg PO DAILY Qty: 90 RF: 3 pravastatin 40 mg tablet 40 mg PO QHS Qty: 90 RF: 3 albuterol sulfate 90 mcg/actuation HFA aerosol inhaler 2 puff inhalation Q4H PRN (Reason: shortness of breath or wheezing) Qty: 8.5 RF: 3 Breo Ellipta 200-25 mcg/dose blister with device 1 inh inhalation DAILY Qty: 3 RF: 6 omega 2-pif-byn-fish oil [Fish Oil] 300-1,000 mg capsule 1 cap PO DAILY RF: 0 cyanocobalamin (vitamin B-12) 1,000 MCG tablet 1,000 mcg PO DAILY RF: 0 acetaminophen 650 mg tablet extended release 1,300 mg PO Q12H RF: 0 temazepam 7.5 mg capsule 7.5 mg PO QHS PRN (Reason: sleep) Qty: 30 RF: 0 Referrals / Follow Up: Stacey Robledo MD [Primary Care Provider] - Disposition Disposition (needs filled in before D/C Order can be placed): Home, Self Care
--- NOTE | 2022-03-03 11:30 | EKG12_ITS ---
Test Reason : AM EKG Blood Pressure : / mmHG Vent. Rate : 061 BPM Atrial Rate : 061 BPM P-R Int : 210 ms QRS Dur : 090 ms QT Int : 438 ms P-R-T Axes : 022 056 062 degrees QTc Int : 440 ms Sinus rhythm with 1st degree A-V block Septal infarct , age undetermined Abnormal ECG When compared with ECG of 02-MAR-2022 11:39, MANUAL COMPARISON REQUIRED, DATA IS UNCONFIRMED Confirmed by ALEXANDRA DOOLEY, YONG ([id number]), pictures editor CHANTELL BROCK ([id number]) on 03/06/2022 1:13:18 PM Referred By: Yong Mora Confirmed By:YONG MORA MD
== END 2022-03-03 13:40 | disposition home or self-care (01) ==
LOC: CLSP 15:30 → PCU 15:30
PROVIDERS: Specialist; Admitting Provider Internal Medicine Cardiovascular Disease; PCP Internal Medicine; Referring Provider Internal Medicine Cardiovascular Disease; Visit Provider Internal Medicine Cardiovascular Disease
DX: I25.110 Atherosclerotic heart disease of native coronary artery with unstable angina pectoris (principal); L40.50 Arthropathic psoriasis, unspecified; Z95.3 Presence of xenogenic heart valve; Z79.899 Other long term (current) drug therapy; Z79.82 Long term (current) use of aspirin; Z86.16 Personal history of COVID-19; M15.9 Polyosteoarthritis, unspecified; E78.5 Hyperlipidemia, unspecified; I10 Essential (primary) hypertension; G47.30 Sleep apnea, unspecified; Z87.891 Personal history of nicotine dependence
CPT/HCPCS: 36415; 80053; 85027; 92921; 92928; 93005; 93454; 94640; 99152; 99153; 99218; C1874; J7030; Q9967; C1725; C1769; C1887; C1894; C9600; G0378; J1327

== ENCOUNTER → 2022-03-07 | Outpatient (CLI) | payer MEDICARE, OTHER, SELFPAY | END | disposition home or self-care (01) | LOC: SL 20:20 | PROVIDERS: PCP Internal Medicine; Referring Provider Internal Medicine; Visit Provider Internal Medicine | DX: G47.30 Sleep apnea, unspecified (principal) | CPT/HCPCS: 95810 ==

== ENCOUNTER → 2022-03-19 | Outpatient (CLI) | payer MEDICARE, OTHER, SELFPAY ==
[2022-03-19 11:55] LABS: AST(SGOT) 18 U/L (15-37); Alanine Aminotransfer ALT/SGPT 28 U/L (13-56); Albumin, Serum 3.8 g/dL (3.2-5.0); Alkaline Phosphatase 62 U/L (45-117); Bilirubin, Direct 0.13 mg/dL (0.00-0.30); Cholesterol 171 mg/dL (200); Globulin 3.4 g/dL (2.2-4.2); High Density Lipoprotein 67 mg/dL; Protein, Total 7.2 g/dL (6.4-8.2); Triglycerides 141 mg/dL; Very Low Density Lipoprotein 28 mg/dL (5-40)
== END | disposition home or self-care (01) ==
PROVIDERS: PCP Internal Medicine; Referring Provider Nurse Practitioner Family; Visit Provider Nurse Practitioner Family
DX: I10 Essential (primary) hypertension (principal); E78.00 Pure hypercholesterolemia, unspecified
CPT/HCPCS: 36415; 80061; 80076

== ENCOUNTER → 2022-04-16 | Outpatient (CLI) | payer MEDICARE, OTHER, SELFPAY ==
--- NOTE | 2022-04-16 10:55 | PCM.CR.HP2 ---
CR - History & Physical - General Arrival date:: 04/16/22 Arrival time:: 10:55 Date of Referral:: 04/10/22 Date of CR Evaluation:: 04/16/22 Referring Physician: Dr. Yong Mora Primary Diagnosis: PCI with sent - History of Present Cardiac Event Onset Date: Enter Onset Date of cardiac illnesses in Comment field below PTCA or coronary stenting:: Yes - 03/02/2022 - Sleep Disorder Evaluation Hx of Sleep Apnea: Yes Do you snore loudly (louder than talking or can be heard through closed doors)?: Yes - getting fitted 04/17/22 Do you often feel tired/ fatigued/ sleepy during daytime?: No Has anyone observed you stop breathing during sleep?: No History of Hypertension (for STOP score): Yes STOP Results: Positive - Medications Home Medications: Ambulatory Orders Medication Instructions Recorded cyanocobalamin (vitamin B-12) 1,000 mcg PO DAILY SUPPLEMENT 02/06/17 1,000 mcg tablet aspirin 81 mg tablet,delayed 81 mg PO QDAY heart health 10/02/17 release (Adult Low Dose Aspirin) calcium carb-vit D3-minerals 600 1 tab PO QDAY vitamin 10/02/17 mg calcium-400 unit tablet melatonin 10 mg capsule 10 mg PO HS PRN Sleep 02/02/19 multivitamin 1 tab PO DAILY vitamin 02/02/19 ascorbic acid (vitamin C) 1,000 mg 1 g PO BID vitamin 02/10/21 tablet albuterol sulfate 90 mcg/actuation 2 puff inhalation Q4H PRN 02/23/21 aerosol inhaler shortness of breath or wheezing #8.5 grams fluticasone furoate 200 1 inh inhalation DAILY #3 ea 06/30/21 mcg-vilanterol 25 mcg/dose inhalation powder (Breo Ellipta) losartan 50 mg-hydrochlorothiazide 1 tab PO BID #180 tabs 07/06/21 12.5 mg tablet metoprolol succinate 50 mg 50 mg PO DAILY BLOOD PRESSURE #90 07/06/21 tablet,extended release 24 hr tabs pravastatin 40 mg tablet 40 mg PO QHS #90 tabs 07/06/21 acetaminophen 650 mg 1,300 mg PO Q12H arthritis 02/22/22 tablet,extended release omega 6-fhh-oae-fish oil 300 1 cap PO DAILY supplement 02/22/22 mg-1,000 mg capsule (Fish Oil) ticagrelor 90 mg tablet (Brilinta) 90 mg PO BID #180 tabs 03/03/22 temazepam 7.5 mg capsule 7.5 mg PO QHS PRN sleep #30 caps 03/20/22 - Allergies Allergies/Adverse Reactions: Allergies meloxicam Adverse Reaction (Verified 03/08/22 08:49) Nausea methotrexate Adverse Reaction (Verified 03/08/22 08:49) Nausea NSAIDS (Non-Steroidal Anti-Inflamma Adverse Reaction (Verified 03/08/22 08:49) Nausea Sulfa (Sulfonamide Antibiotics) Adverse Reaction (Verified 03/08/22 08:49) Nausea Advanced Directives - Advanced Directives Power of Battery Plate Remover: Yes Living Will: Yes Advance Directives Information Provided: Yes Advance Directives on File: Yes DNR Order?:: No Past Medical History - Covid-19 Screening Fever: No Unexplained muscle aches: No Current respiratory symptoms: No Upper respiratory infections symptoms: No Gastro-intestinal symptoms: No Sye-Mvel-Bvfrbh symptoms: No Has tested positive for COVID-19 in last 30 days: No Had contact w/person w/symptoms or Covid-19 (+) last 14 days: No Has High Risk Exposures ID'd by Health dept/Inf Control team: No 65 years or older:: Yes Lives in Assisted Living facility:: No Has a chronic lung disease or moderate to severe asthma:: No Has a serious heart condition:: Yes Immunocompromised:: No Severely obese (Body Mass Index of 40 or higher):: No Diabetic:: No Has chronic kidney disease undergoing dialysis:: No Has liver disease:: No - Past Medical Illness Medical History: Past Medical History (Last Reviewed 03/16/22 @ 12:30 by Paul Goodman PROTECTION AGENT, PROTECTION AGENT-C) 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 OPA-RHL-Cpiw LAD at D2 bifurcation w/ 3.5 x 18 mm [facility] [place] Stent and POBA-D2 03/02/22; Bereavement counseling Z71.89 Bereavement due to life event Z63.4 COVID-19 Onset Date: 08/31/20 U07.1 Diverticulitis K57.92 Essential (primary) hypertension I10 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 Hyperlipidemia E78.5 Nonrheumatic aortic (valve) stenosis I35.0 Psoriatic arthritis L40.50 Sleep apnea G47.30 UTI (urinary tract infection) N39.0 - Past Surgical History Surgical History: Past Surgical History (Last Reviewed 03/16/22 @ 10:13 by Aura Bautista) H/O aortic valve replacement Onset Date: 04/08/17 Z95.2 # 21 Trifecta Valve @ [facility] [place] History of colonoscopy Z98.890 History of coronary artery stent placement Onset Date: 03/02/22 Z95.5 [id number] LAD at D2 bifurcation w/ 3.5 x 18 mm [email or web address] Stent and POBA-D2 03/02/22; History of left heart catheterization Onset Date: 03/14/17 Z98.890 History of partial colectomy Onset Date: ~2011 Z90.49 History of shoulder surgery Z98.890 Surgical History: colectomy - 12 4-5 years ago., - - bovine aortic valve replacement; L thumb joint fused, bilateral total shoulder replacement, tubal ligation - Family History Summary Family History: Family History (Last Reviewed 03/16/22 @ 10:13 by Aura Bautista) Brother Heart disease AV replaced and CABG X 1 CAD (coronary artery disease) CABG x 1 w/ AVR Social History - Smoking History Smoking Status: Former smoker Years Smokin Packs Smoked per Day: 1 - Alcohol Use Alcohol Usage: Yes - few times a week - Occupation Occupation (List type of work in comments):: Retired - Hobbies, Recreation, Social Activities Hobbies: None Recreational Activities: I am able to engage in all my recreational activities Social Environment - Status Marital Status: - Current Living Arrangements Living Environment:: Alone - Children How many children do you have?: 4 Do any of your children live nearby?: Yes - Safety Do you feel safe in your surroundings?: Yes - Assistance Do you need any assistance at home?: no Review of Systems - Review of Systems Hints: Right click = Denies (Slash). Left click = Reports (Resighini) Review of Present Symptoms: Reports: Shortness of Breath with Exertion, Fatigue, Appetite - Normal. Denies: Shortness of Breath at Rest, PVD, Operative Discomfort, Angina, Wound Healing, Dizziness/Lightheadedness, Heart Arrhythmia/Irregularities, Appetite - Special Diet, Sleep - Normal, Sexual Changes - Pain Is Patient Pain Free?: Yes Risk Factor Assessment - Vital Signs Pulse Ox: 97 - Pulse Pulse Rate: 68 Pulse Rhythm: Regular - Hypertension Blood Pressure Sitting - Right Arm: 130/72 - Stress Stress: Home/Family - Obesity Height: 5 ft 3 in Weight:: 72.575 kg Weight in Pounds: 160.0 lbs Body Mass Index (BMI): 28.3 Nutritional Referral for Obesity: No - Physical Inactivity Physical Inactivity: Reg Exercise 30 min/day - Risk Stratification Risk Guidelines: Moderate Risk: Risk Factor for Smoking, Risk Factor for Dyslipidemia, Risk Factor for Diabetes, Risk Factor for Obesity, Risk Factor for Hypertension, Risk Factor for Sedentary Lifestyle, Risk Factor for Depression - Family History Family History: Family History (Last Reviewed 03/16/22 @ 10:13 by Aura Bautista) Brother Heart disease CAD (coronary artery disease) Motivation - Motivation to Participate On a scale of 1 to 10, how prepared are you to commit to attending program?: 10 What do you see as barriers to successfully being able to complete the program?: none What do you see as the benefits of succesfully completing the program? In other words, what do you hope to get out of participating in the program?: improved health Are there issues you are dealing with that will interfere with completing the program?: no Do you have a spouse or signficant other, family or friends who will help support you to complete the program?: family
[2022-04-16 11:25] VITALS: BP 130/72; PULSE 68; O2SAT 97; BMI 28.3
--- NOTE | 2022-04-16 11:25 | CR.ITP_ITS ---
Diagnosis - General Information Admitting Diagnosis: PCI with stent Personal Learning Style:: Audio/Visual, Demonstration, Group, Individual Preference, Written Stage of change r/t lifestyle modifications:: Contemplation Gave educational material for:: Treating Heart Disease, Emotions & Heart Disease, Stress Management & Relaxation, Sleep Disorders & Heart Disease, How The Heart Works, What it means to have Heart Disease, How Coronary Artery Disease is Diagnosed, Heart Procedures, What Heart Medications Do, Risk Factors & Modifications, Living an Active Life, Nutrition - Education/Goals Cardiac Rehabilitation Goals: 1. Maintain the individual as the primary focus of care. 2. To improve the patient's quality of life. 3. Identification of cardiac risk factors and provide cardiac risk factor management. 4. Enhance the psychosocial status of the patient. 5. Reconditioning enough to allow the patient to resume customary activities. 6. Control symptoms of cardiac disease Personal Goals: Initial Assessment: Improve management of stress and emotions, Improve energy level, Improve muscle strength and endurance, Improve diet and eating habits (eat healthier), Control risk factors (learn risk factor modification) Scale for measuring improvement of personal goals: Enter appropriate number in Comments. 2 = Unchanged. 3 = Slightly Better. 4 = Moderate Improvement. 5 = Met my Goal Exercise - Initial Assessment - Visit Date of Eval: 04/16/22 - initial eval Mets: Pre-: >3 METS for 30 minutes by discharge, >5 METS for 30 minutes by discharge, >7 METS for 30 minutes by discharge, Unable to meet goal due to: (see comment below) - Physician Prescribed Exercise Modalities: Treadmill, Rower, Airdyne, NuStep, SciFit, Lateral Patient Financial Services Coordinator Frequency: 3x/week for 12 weeks [36 sessions] Intensity: 60-80% of age predicted maximum heart rate reserve Current METSs:: 3 Resting Blood Pressure: 130/72 - Outcomes & Goals Goals:: Verbalizes understanding of THR, RPE & goal METS by session 6, Documents in home exercise log/reports 30 min aerobic 5 day/wk by DC, Demonstrates accurate pulse taking by DC, Other additional outcome/goals: see below - Intervention & Plan Exercise Program Goals: Instruct on personal THR & RPE, Instruct on MET level & personal MET goal, Show patient to take own pulse /validate performance until accurate, Instruct on home exercise, Other additional plan/int - Physical Activity Home Exercise Physical Activity - Home Exercise: Safe Exercise, Warm-up, Self-monitoring, Cool-Down, Home Exercise > 30 min Daily, Sitting Time <3 hours/daily - Outcomes & Goals Outcomes/Goals: Demonstrates correct Warm-up/exercise Cool-Down (S3) if = 2.5 METs, Verbalizes symptoms of exercise intolerance by Session 3 (S3), Demonstrate safe equipment use (S3) & follows exercise prescrition (6), Other: See below - Intervention & Plan Plan/Intervention: Instruct warm-up & cool-down if exercising at > 2 METs, Instruct on symptoms of exercise intolerance & actions to take, Instruct & monitor on saf, Assess intial functional capacity & safety risk, Other See below Nutrition - Initial Assessment - Program Goals Nutrition Program Goals: LDL <100 optimal. 100 - 129 Near optimal. 130 - 159 Borderline High. 160 - 189 High. Total Cholesterol <200 desirable. 200 - 239 Borderline High. >/= 240 High. HDL < 40 Low >/=60 High. Triglycerides <150 desirable. <199 optimal. VlDL 5 - 40. HgbA1C <7%. BMI <25 Patient has diagnosis of Hyperlipidemia (ICD E78)?: Yes - Visit Date of Assessment:: 04/16/22 - initial eval - Cholesterol/Lipids Determine presence & major risk factors that modify LDL goal: Cigarette smoking, Hypertension or hypertensive medication, Low HDL cholesterol <40 mg/dL*, Family history of premature CHD in Male < 55 years: female <65 yearsFa, Age men > 45 years; women >/= 55 years Outcomes/Goals: Pt IDs own risk factors & lifestyle modifications by Session 10, Verbalizes symptoms of angina & response by session 3., Pt independently manages, Other Additional Outcomes/Goals: Intervention/Plan: Advocate for lipid panel cholesterol medication if applicable, Instruct on personal lipid levels & lipid goals/NCEP guidelines, Instruct on cholesterol, Other additional plan/int - Diabetes (Other Core Measures) Diabetes Type: Not Applicable - Weight Mgt (Other Care) Height: 5 ft 3 in Weight:: 72.575 kg BMI: 28.3 Outcomes/Goals: Pt sets, maintains & shows weight loss goal & trend during rehab, Other additional outcomes/goals Intervention/Plan: Instruct on ideal BMI & set weight loss goal w/patient, Assist pt to ID & incorporate diet changes for weight loss by S9, Refer to Structured Weight Loss program as appropriate, Encourage goal of using 250- 300dcal per session for weight loss, Other additional plan/interventions - Healthy Eating Habits Will attend diet classes:: Yes Outcomes/Goals:: Consume diet rich in vegs,fruits,whole grain/high fiber,fish,lean meat, Limit sat/trans fats,cholesterol & added salts & sugars, Other additional outcome/goals: Intervention/Plan:: Assess current eating habits, Other Additional plan/interventions - Education Gave educational materials for:: Signs & symptoms of hypoglycemia, Signs & symptoms of hyperglycemia, Relate diabetes to coronary artery disease, Healthy eating Nutrition - 30-Day Assessment Nutrition - 60-Day Assessment Nutrition - 90-Day Assessment Nutrition - Final Assessment Medical - Initial Assessment - Visit Date of Eval: 04/16/22 - inital eval - Medication Compliance Preventative Medication(s):: Statin/lipid, Beta tesfaye H/O mental health issues: depression, anxiety, or addiction?: No Doesn?t believe in the benefits of treatment?: No Believes medications are unnecessary or harmful?: No Has a concern about medication side effects?: No Expresses concern over the cost of medications?: No Outcomes/Goals: Verbalizes medications,desired effect & common side effects @ DC, Pt self-reports following medication regimen, Keeps card in wallet w/medications listed by DC, Other additional outcome/goals: Interventions/plans: Instruct on medication effects & side effects, Review medication list w/patient every two weeks, Instruct importance of taking meds as ordered & assist problem solving, Other additional - Tobacco Use Tobacco Use: Non-smoker How long ago did you quit using tobacco products?: Greater than or equal to 6 months ago - Hypertension Hypertension Diagnosis:: Hypertension ICD-10 I10 Resting Blood Pressure:: 130/72 [place] [employer] Hypertension Guidelines: [place] [employer] Hypertension Guidelines. Normal BP Less than 120/80. Elevated BP 120/80. Hypertension Stage 1: BP 130-139/80-89. Hypertesnion Stage 2: BP 140 or higher/90 or higher. Hypertension Crisis: BP higher than 180/120 Outcomes/Goals: Able to verbalize/achieve optimal blood pressure <130/80, Incorporates diet changes & exercise for blood pressure control by DC, Other additional outcomes/goals Interventions/plan: Instruct on optimal blood pressure, hypertension & medications, Instruct on effects of sodium, alcohol, stress, exercise &hypertension, Other additional plan/interventions - Tobacco Cessation Referral Smoking Cessation Referral:: No Individual Education/Counseling:: No Education Schedule Given:: Yes Medical- 30-Day Assessment Medical- 60-Day Assessment Medical- 90-Day Assessment Medical - Final Assessment Psychosocial - Initial Assess - VIsit Date of Eval: 04/16/22 - inital eval History of previous Mental disease:: No - Intervention/Plan: See List Interventions/Plan:: Assess stressors,coping strategies & signs of derpression on admission, Instruct/assist pt to develop coping & personal stress Mgt strategies, Refer to Behavioral Health if appropriate, Refer to Physician if appropriate, Instruct patient to recognize signs & symptoms of depression, Instruct patient to recog, Other additional plan/intervention Psychosocial - 30-Day Assess Psychosocial - 60-Day Assess Psychosocial - 90-Day Assess Psychosocial - Final Assessmen Patient Health Questionnaire Initial Assessment 1. Little interest or pleasure in doing things: Several days 2. Feeling down, depressed, or hopeless: Several days 3. Trouble falling or staying asleep, or sleeping too much: More than half the days 4. Feeling tired or having little energy: More than half the days 5. Poor appetite or overeating: Not at all 6. Feeling bad about yourself -- or that you are a failure or have let yourself or your family down: Several days 7. Trouble concentrating on things, such as reading the newspaper or watching television: Not at all 8. Moving or speaking so slowly that other people could have noticed. Or the opposite - being so fidgety or restless that you have been moving around a lot more than usual: Not at all 9. Thoughts that you would be better off , or of hurting yourself in some way: Not at all How difficult have these problems made it for you to do your work, take care of things at home, or get along with other people?: Somewhat difficult Total Score: 7 ALAINA-Q SV Test - Statements CAD is a disease of the arteries in the heart: False Examples of risk factors for heart disease: True Angina is chest pain or discomfort: True The benefits of resistance training include: True Eating more meat and dairy products: False Anti-platelet medications such as aspirin are important: True The only effective way to manage stress: False An exercise warm-up slowly increases heart rate: True Prepared, processed foods usually have high sodium: True Depression is common after a heart attack: True The statin medications lower cholesterol: True To control blood pressure, lower the amount of sodium: True If someone gets chest discomfort during walking: False Transfats are partially hydrogenated vegetable oils: I Don't Know Sleep apnea that is not treated increases the risk: False To control cholesterol, one should become a vegetarian: False Someone knows if he/she is exercising at the right level: True Diabetes cannot be prevented with exercise & health eating: False Stress is a large risk for heart attack: True A diet that can help lower blood pressure is rich in: True - Total Score Total Correct Responses: 19 Self-Efficacy Initial Assessment We would like to know how confident you are in doing certain activities. Please select your confidence level for:: Select your confidence level for the following using the scale 1-10 where 1 is not at all confident and 10 is totally confident. Your score is the average of all 6 responses. Fatigue: How confident are you that you can keep the fatigue caused by your disease from interfering with the things you want to do? Select Number: 7 Physical Discomfort or Pain: How confident are you that you can keep the physical discomfort or pain of your disease from interfering with the things you want to do? Select Number: 6 Emotional Distress: How confident are you that you can keep the emotional distress caused by your disease from interfering with the things you want to do? Select Number: 7 Other Symptoms or Health Problems: How confident are you that you can keep other symptoms or health problems from interfering with the things you want to do? Select Number: 7 Different Tasks and Activities: How confident are you that you can do the different tasks and activities needed to manage your health condition so as to reduce your need to see a doctor? Select Number: 9 Medication: How confident are you that you can do things other than just taking medication to reduce how much your illness affects your everyday life? Select Number: 9 Total Score:: 7 Nutrition Survey - Nutrition Survey Initial Have you lost >10 lbs over the past 2 months without trying?: No Are you following a special diet at home for diabetes, low fat, or low salt?: No Are you interested in meeting with a dietitian for help understanding your diet?: No Do you eat less than 3 meals a day?: Yes Do you eat fatty meats (blake, sausage, ribs, etc), fried foods, desserts, large amounts of salad dressings, margarine, butter, or cheese most days?: No Do you have food allergies? [Enter types in comment field]: No Do you eat in restaurants more than 3 times a week?: No Do you season food with salt, seasoning salt, or garlic salt?: Yes Do you used canned, boxed, frozen meals, or soups, seasoning packets?: No Total Score:: 2
[2022-04-16 11:32] VITALS: BP 130/72; BMI 28.3
== END | disposition home or self-care (01) ==
LOC: CR 10:51
PROVIDERS: PCP Internal Medicine; Referring Provider Internal Medicine Cardiovascular Disease; Visit Provider Internal Medicine Cardiovascular Disease
DX: Z00.00 Encounter for general adult medical examination without abnormal findings (principal)

== ENCOUNTER → 2022-04-17 | Outpatient (CLI) | payer MEDICARE, OTHER, SELFPAY ==
[2022-04-16 11:32] VITALS: BMI 28.3
== END | disposition home or self-care (01) ==
LOC: SL 21:23
PROVIDERS: PCP Internal Medicine; Referring Provider Physician Assistant; Visit Provider Physician Assistant
DX: G47.30 Sleep apnea, unspecified (principal)
CPT/HCPCS: 95811

== ENCOUNTER 2022-04-27 09:30 | Outpatient (RCR) | payer MEDICARE, OTHER, SELFPAY ==
[2022-04-16 11:32] VITALS: BMI 28.3
== END 2022-04-29 23:59 ==
LOC: CR 09:30
PROVIDERS: PCP Internal Medicine; Referring Provider Internal Medicine Cardiovascular Disease; Visit Provider Internal Medicine Cardiovascular Disease
DX: I25.119 Atherosclerotic heart disease of native coronary artery with unspecified angina pectoris (principal); I35.0 Nonrheumatic aortic (valve) stenosis; R06.00 Dyspnea, unspecified; Z95.5 Presence of coronary angioplasty implant and graft
CPT/HCPCS: 93798

== ENCOUNTER 2022-05-23 09:30 | Outpatient (RCR) | payer MEDICARE, OTHER, SELFPAY ==
[2022-04-16 11:32] VITALS: BMI 28.3
== END 2022-05-30 23:59 ==
LOC: CR 09:30
PROVIDERS: PCP Internal Medicine; Referring Provider Internal Medicine Cardiovascular Disease; Visit Provider Internal Medicine Cardiovascular Disease
DX: I25.119 Atherosclerotic heart disease of native coronary artery with unspecified angina pectoris (principal); I35.0 Nonrheumatic aortic (valve) stenosis; R06.00 Dyspnea, unspecified; Z12.10 Encounter for screening for malignant neoplasm of intestinal tract, unspecified; Z95.5 Presence of coronary angioplasty implant and graft
CPT/HCPCS: 93798

== ENCOUNTER 2022-06-29 09:30 | Outpatient (RCR) | payer MEDICARE, OTHER, SELFPAY ==
[2022-04-16 11:32] VITALS: BMI 28.3
--- NOTE | 2022-06-15 07:07 | CR.ITP_ITS ---
Diagnosis Exercise - 60-day Assessment - Visit Date of Eval: 06/15/22 Session #:: 20 - Physician Prescribed Exercise Modalities: Treadmill, Airdyne, NuStep Frequency: 3x/week for 12 weeks [36 sessions] Intensity: 60-80% of age predicted maximum heart rate reserve METs - Progression 0.5-1.0 weekly:: .5 Current METSs:: 5.5 Target Heart Rate:: 93-120 Current RPE:: 13-14 Maximum Excercise HR:: 125 Resting Blood Pressure: 120/50 Maximum Exercise Blood Pressure: 164/64 EKG Type: SR to ST w/ occas PVC's, rare PAC's, and one atrial triplet - Outcomes & Goals Goals:: Verbalizes understanding of THR, RPE & goal METS by session 6, Documents in home exercise log/reports 30 min aerobic 5 day/wk by DC, Demonstrates accurate pulse taking by DC, Other additional outcome/goals: see below - Intervention & Plan Exercise Program Goals: Instruct on personal THR & RPE, Instruct on MET level & personal MET goal, Show patient to take own pulse /validate performance until accurate, Instruct on home exercise, Other additional plan/int - 30-day Reassessments 30 day Reassessments:: Progressing - instructed on proper cool down - Physical Activity Home Exercise Physical Activity - Home Exercise: Safe Exercise, Warm-up, Self-monitoring, Cool-Down, Home Exercise > 30 min Daily, Sitting Time <3 hours/daily - Outcomes & Goals Outcomes/Goals: Demonstrates correct Warm-up/exercise Cool-Down (S3) if = 2.5 METs, Verbalizes symptoms of exercise intolerance by Session 3 (S3), Demonstrate safe equipment use (S3) & follows exercise prescrition (6), Other: See below - Intervention & Plan Plan/Intervention: Instruct warm-up & cool-down if exercising at > 2 METs, Instruct on symptoms of exercise intolerance & actions to take, Instruct & monitor on saf, Assess intial functional capacity & safety risk, Other See below - 30-day Reassessments 30 day Reassessments:: Progressing - reassessed for safety risk on treadmill Nutrition - Initial Assessment Nutrition - 30-Day Assessment Nutrition - 60-Day Assessment - Program Goals Nutrition Program Goals: LDL <100 optimal. 100 - 129 Near optimal. 130 - 159 Borderline High. 160 - 189 High. Total Cholesterol <200 desirable. 200 - 239 Borderline High. >/= 240 High. HDL < 40 Low >/=60 High. Triglycerides <150 desirable. <199 optimal. VlDL 5 - 40. HgbA1C <7%. BMI <25 Patient has diagnosis of Hyperlipidemia (ICD E78)?: Yes - Visit Date of Assessment:: 06/15/22 Session #:: 20 - Cholesterol/Lipids (Other Core Measures) Determine presence & major risk factors that modify LDL goal: Cigarette smoking, Hypertension or hypertensive medication, Low HDL cholesterol <40 mg/dL*, Family history of premature CHD in Male < 55 years: female <65 yearsFa, Age men > 45 years; women >/= 55 years Outcomes/Goals: Pt IDs own risk factors & lifestyle modifications by Session 10, Verbalizes symptoms of angina & response by session 3., Pt independently manages, Other Additional Outcomes/Goals: Intervention/Plan: Advocate for lipid panel cholesterol medication if applicable, Instruct on personal lipid levels & lipid goals/NCEP guidelines, Instruct on cholesterol, Other additional plan/int 30-day Reassessments:: Progressing - reviewed pts risk factors - Diabetes (Other Core Measures) Diabetes Type: Not Applicable - Weight Mgt (Other Care) Height: 5 ft 3 in Weight:: 72.575 kg BMI: 28.3 Outcomes/Goals: Pt sets, maintains & shows weight loss goal & trend during rehab, Other additional outcomes/goals Intervention/Plan: Instruct on ideal BMI & set weight loss goal w/patient, Assist pt to ID & incorporate diet changes for weight loss by S9, Refer to Structured Weight Loss program as appropriate, Encourage goal of using 250- 300dcal per session for weight loss, Other additional plan/interventions 30 day Reassessments:: Progressing - reviewed healthy diet - Healthy Eating Habits Will attend diet classes:: Yes Outcomes/Goals:: Consume diet rich in vegs,fruits,whole grain/high fi michael,fish,lean meat, Limit sat/trans fats,cholesterol & added salts & sugars, Other additional outcome/goals: Intervention/Plan:: Assess current eating habits, Other Additional plan/interventions 30-day Reassessments:: Progressing - reviewed healthy diet - Education Gave educational materials for:: Signs & symptoms of hypoglycemia, Signs & symptoms of hyperglycemia, Relate diabetes to coronary artery disease, Healthy eating Nutrition - 90-Day Assessment Nutrition - Final Assessment Core - Initial Assessment Core - 30-Day Assessment Core - 60-Day Assessment - Visit Date of Eval: 06/15/22 Session #:: 20 - Medication Compliance Preventative Medication(s):: Statin/lipid, Beta tesfaye H/O mental health issues: depression, anxiety, or addiction?: No Doesn?t believe in the benefits of treatment?: No Believes medications are unnecessary or harmful?: No Has a concern about medication side effects?: No Expresses concern over the cost of medications?: No Outcomes/Goals: Verbalizes medications,desired effect & common side effects @ DC, Pt self-reports following medication regimen, Keeps card in wallet w/medications listed by DC, Other additional outcome/goals: Interventions/plans: Instruct on medication effects & side effects, Review medication list w/patient every two weeks, Instruct importance of taking meds as ordered & assist problem solving, Other additional 30-day Reassessments:: Progressing - encouraged to take meds - Tobacco Use Tobacco Use: Non-smoker - Hypertension Hypertension Diagnosis:: Hypertension ICD-10 I10 Resting Blood Pressure:: 120/50 [place] [employer] Hypertension Guidelines: [place] [employer] Hypertension Guidelines. Normal BP Less than 120/80. Elevated BP 120/80. Hypertension Stage 1: BP 130-139/80-89. Hypertesnion Stage 2: BP 140 or higher/90 or higher. Hypertension Crisis: BP higher than 180/120 Peak Exercise Blood Pressure:: 164/64 Outcomes/Goals: Able to verbalize/achieve optimal blood pressure <130/80, Incorporates diet changes & exercise for blood pressure control by DC, Other additional outcomes/goals Interventions/plan: Instruct on optimal blood pressure, hypertension & medications, Instruct on effects of sodium, alcohol, stress, exercise &hypertension, Other additional plan/interventions 30 day Reassessments:: Progressing - explained BP goals - Tobacco Cessation Referral Smoking Cessation Referral:: No Individual Education/Counseling:: No Education Schedule Given:: Yes Core - 90 Day Assessment Core - Final Assessment Psychosocial - Initial Assess Psychosocial - 30-Day Assess Psychosocial - 60-Day Assess - VIsit Date of Eval: 06/15/22 Session #:: 20 History of previous Mental disease:: No Psychosocial - 90-Day Assess Psychosocial - Final Assessmen Patient Health Questionnaire 60-Day Re-eval Assessment 1. Little interest or pleasure in doing things: Several days 2. Feeling down, depressed, or hopeless: Several days 3. Trouble falling or staying asleep, or sleeping too much: More than half the days 4. Feeling tired or having little energy: More than half the days 5. Poor appetite or overeating: Not at all 6. Feeling bad about yourself -- or that you are a failure or have let yourself or your family down: Several days 7. Trouble concentrating on things, such as reading the newspaper or watching television: Not at all 8. Moving or speaking so slowly that other people could have noticed. Or the opposite - being so fidgety or restless that you have been moving around a lot more than usual: Not at all 9. Thoughts that you would be better off , or of hurting yourself in some way: Not at all How difficult have these problems made it for you to do your work, take care of things at home, or get along with other people?: Somewhat difficult Total Score: 7 Self-Efficacy 60-Day Re-eval Assessment We would like to know how confident you are in doing certain activities. Please select your confidence level for:: Select your confidence level for the following using the scale 1-10 where 1 is not at all confident and 10 is totally confident. Your score is the average of all 6 responses. Fatigue: How confident are you that you can keep the fatigue caused by your disease from interfering with the things you want to do? Select Number: 7 Physical Discomfort or Pain: How confident are you that you can keep the physical discomfort or pain of your disease from interfering with the things you want to do? Select Number: 6 Emotional Distress: How confident are you that you can keep the emotional distress caused by your disease from interfering with the things you want to do? Select Number: 7 Other Symptoms or Health Problems: How confident are you that you can keep other symptoms or health problems from interfering with the things you want to do? Select Number: 7 Different Tasks and Activities: How confident are you that you can do the different tasks and activities needed to manage your health condition so as to reduce your need to see a doctor? Select Number: 9 Medication: How confident are you that you can do things other than just taking medication to reduce how much your illness affects your everyday life? Select Number: 9 Total Score:: 7 Nutrition Survey
[2022-06-15 07:17] VITALS: BP 120/50; BP 164/64; BMI 28.3
== END 2022-06-29 23:59 ==
LOC: CR 09:30
PROVIDERS: PCP Internal Medicine; Referring Provider Internal Medicine Cardiovascular Disease; Visit Provider Internal Medicine Cardiovascular Disease
DX: I25.119 Atherosclerotic heart disease of native coronary artery with unspecified angina pectoris (principal); I35.0 Nonrheumatic aortic (valve) stenosis; R06.00 Dyspnea, unspecified; Z12.10 Encounter for screening for malignant neoplasm of intestinal tract, unspecified; Z95.5 Presence of coronary angioplasty implant and graft
CPT/HCPCS: 93798

== ENCOUNTER → 2022-07-10 | Outpatient (CLI) | payer MEDICARE, OTHER, SELFPAY ==
[2022-06-15 07:17] VITALS: BMI 28.3
== END | disposition home or self-care (01) ==
LOC: SL 13:09
PROVIDERS: PCP Internal Medicine; Referring Provider Nurse Practitioner Acute Care; Visit Provider Nurse Practitioner Acute Care
DX: G47.33 Obstructive sleep apnea (adult) (pediatric) (principal)
CPT/HCPCS: 98960; G0463

== ENCOUNTER 2022-07-20 09:30 | Outpatient (RCR) | payer MEDICARE, OTHER, SELFPAY ==
[2022-06-15 07:17] VITALS: BMI 28.3
[2022-06-30 01:31] VITALS: BP 120/50; BP 164/64
--- NOTE | 2022-07-16 08:05 | CR.ITP_ITS ---
Diagnosis Exercise - 60-day Assessment - Visit Date of Eval: 07/16/22 Session #:: 25 Comments:: Patient has missed 10 sessions since starting her CR on 04/23/2022. - Physician Prescribed Exercise Modalities: Treadmill, Rower, Airdyne, NuStep Frequency: 3x/week for 12 weeks [36 sessions] Intensity: 60-80% of age predicted maximum heart rate reserve Duration: 30 - 45 minutes Current METSs:: 6.0 Target Heart Rate:: 34:56 Current RPE:: 13-15 Maximum Excercise HR:: 122 Resting Blood Pressure: 136/58 - Resting Blood Pressures remain to be over 130/80 Maximum Exercise Blood Pressure: 172/88 EKG Type: Sinus rhythm to sinus tachycardia. Current Physical Activity or Exercising minutes: 34:56 - Outcomes & Goals Goals:: Verbalizes understanding of THR, RPE & goal METS by session 6, Documents in home exercise log/reports 30 min aerobic 5 day/wk by DC, Demonstrates accurate pulse taking by DC - Intervention & Plan Exercise Program Goals: Instruct on personal THR & RPE, Instruct on MET level & personal MET goal, Show patient to take own pulse /validate performance until accurate, Instruct on home exercise - 30-day Reassessments 30 day Reassessments:: Met Reassessment Notes & Comments:: Patient is able to verbalize sign & symptoms of exercise intolerance. She is also able to demonstrate pulse taking skill. She follows her exercise prescription and is able to set her own exercise equipment. - Physical Activity Home Exercise Physical Activity - Home Exercise: Safe Exercise, Warm-up, Self-monitoring, Cool-Down, Home Exercise > 30 min Daily, Sitting Time <3 hours/daily - Outcomes & Goals Outcomes/Goals: Demonstrates correct Warm-up/exercise Cool-Down (S3) if = 2.5 METs, Verbalizes symptoms of exercise intolerance by Session 3 (S3), Demonstrate safe equipment use (S3) & follows exercise prescrition (6) - Intervention & Plan Plan/Intervention: Instruct warm-up & cool-down if exercising at > 2 METs, Instruct on symptoms of exercise intolerance & actions to take, Instruct & monitor on saf, Assess intial functional capacity & safety risk - 30-day Reassessments 30 day Reassessments:: Met Nutrition - Initial Assessment Nutrition - 30-Day Assessment Nutrition - 60-Day Assessment - Program Goals Nutrition Program Goals: LDL <100 optimal. 100 - 129 Near optimal. 130 - 159 Borderline High. 160 - 189 High. Total Cholesterol <200 desirable. 200 - 239 Borderline High. >/= 240 High. HDL < 40 Low >/=60 High. Triglycerides <150 desirable. <199 optimal. VlDL 5 - 40. HgbA1C <7%. BMI <25 Patient has diagnosis of Hyperlipidemia (ICD E78)?: Yes - Visit Date of Assessment:: 07/16/22 Session #:: 25 - Cholesterol/Lipids (Other Core Measures) Triglycerides (mg/dL): 0 - no recent new labs drawn. Determine presence & major risk factors that modify LDL goal: Hypertension or hypertensive medication, Family history of premature CHD in Male < 55 years: female <65 yearsFa, Age men > 45 years; women >/= 55 years Outcomes/Goals: Pt IDs own risk factors & lifestyle modifications by Session 10, Verbalizes symptoms of angina & response by session 3., Pt independently manages Intervention/Plan: Instruct on personal lipid levels & lipid goals/NCEP guidelines, Instruct on cholesterol Referral to dietitian:: No - Diabetes (Other Core Measures) Diabetes Type: Not Applicable - Weight Mgt (Other Care) Height: 5 ft 3 in Weight:: 161 lb 8 oz BMI: 28.5 Diagnosis Overweight/Obesity BMI> 30% ICD-10 E66: No Diagnosis High BMI/Morbid Obesity BMI> 35% ICD-10 Z68: No Outcomes/Goals: Pt sets, maintains & shows weight loss goal & trend during rehab Intervention/Plan: Instruct on ideal BMI & set weight loss goal w/patient 30 day Reassessments:: Progressing - Healthy Eating Habits Will attend diet classes:: Yes Outcomes/Goals:: Consume diet rich in vegs,fruits,whole grain/high fiber,fish,lean meat, Limit sat/trans fats,cholesterol & added salts & sugars Intervention/Plan:: Assess current eating habits 30-day Reassessments:: Met - Patient maintaining current weight. - Education Gave educational materials for:: Healthy eating Nutrition - 90-Day Assessment Nutrition - Final Assessment Core - Initial Assessment Core - 30-Day Assessment Core - 60-Day Assessment - Visit Date of Eval: 07/16/22 Session #:: 25 - Medication Compliance Preventative Medication(s):: Aspirin, Ticagrelor/P2Y12 inhibitor, Statin/lipid, Beta tesfaye H/O mental health issues: depression, anxiety, or addiction?: No Doesn?t believe in the benefits of treatment?: No Believes medications are unnecessary or harmful?: No Has a concern about medication side effects?: No Expresses concern over the cost of medications?: No Outcomes/Goals: Verbalizes medications,desired effect & common side effects @ DC, Pt self-reports following medication regimen, Keeps card in wallet w/medications listed by DC Interventions/plans: Instruct on medication effects & side effects, Review medication list w/patient every two weeks, Instruct importance of taking meds as ordered & assist problem solving 30-day Reassessments:: Met - Tobacco Use Tobacco Use: Non-smoker Interventions/plan: Instruct on effects of smoking & provide smoking cessation resource, Assist pt to set quit date & provide encouragement, Assist pt to develop strategies to achieve/maintain quit date, Assist pt w/nicotine replacement & medication for cessation success - Hypertension Hypertension Diagnosis:: Hypertension ICD-10 I10 Resting Blood Pressure:: 150/62 [place] [employer] Hypertension Guidelines: [place] [employer] Hypertension Guidelines. Normal BP Less than 120/80. Elevated BP 120/80. Hypertension Stage 1: BP 130-139/80-89. Hypertesnion Stage 2: BP 140 or higher/90 or higher. Hypertension Crisis: BP higher than 180/120 Peak Exercise Blood Pressure:: 172/88 Outcomes/Goals: Able to verbalize/achieve optimal blood pressure <130/80, Incorporates diet changes & exercise for blood pressure control by DC Interventions/plan: Instruct on optimal blood pressure, hypertension & medications, Instruct on effects of sodium, alcohol, stress, exercise &hypertension 30 day Reassessments:: Progressing - Tobacco Cessation Referral Smoking Cessation Referral:: No Individual Education/Counseling:: No Education Schedule Given:: Yes Core - 90 Day Assessment Core - Final Assessment Psychosocial - Initial Assess Psychosocial - 30-Day Assess Psychosocial - 60-Day Assess - VIsit Date of Eval: 07/16/22 Session #:: 25 Not Applicable: Yes History of previous Mental disease:: No History of Emotional Disorders: Depression - Psychosocial Test Tool Used:: PHQ-9 Questionnaire phq-9 Severity: Severity. 1-4 Minimal Depression. 5-9 Mild Depression. 10-14 Moderate Depression. 15-19 Moderately Sever Depression. 20-27 Severe Depression. Rule: - Referral to Behavioral Health PS - Interventions: Yes Attend Stress Management Classes, No Referral to Behavioral Health if PHQ-9 score >9:, No Referral to [facility], No Referral to Physician if PHQ-9 if score is 5-9: - Outcomes/Goals: See list Psychosocial Outcomes/Goals:: ID's personal stressors & 2 strategies to manage stress by discharge - Intervention/Plan: See List Interventions/Plan:: Assess stressors,coping strategies & signs of derpression on admission, Instruct/assist pt to develop coping & personal stress Mgt strategies, Instruct patient to recognize signs & symptoms of depression, Instruct patient to recog - 30-day Reassessments: 30 day Reassessments:: Progressing Psychosocial - 90-Day Assess Psychosocial - Final Assessmen Patient Health Questionnaire 60-Day Re-eval Assessment 1. Little interest or pleasure in doing things: Several days 2. Feeling down, depressed, or hopeless: Several days 3. Trouble falling or staying asleep, or sleeping too much: More than half the days 4. Feeling tired or having little energy: More than half the days 5. Poor appetite or overeating: Not at all 7. Trouble concentrating on things, such as reading the newspaper or watching television: Several days 8. Moving or speaking so slowly that other people could have noticed. Or the opposite - being so fidgety or restless that you have been moving around a lot more than usual: Not at all 9. Thoughts that you would be better off , or of hurting yourself in some way: Not at all How difficult have these problems made it for you to do your work, take care of things at home, or get along with other people?: Somewhat difficult Total Score: 7 Self-Efficacy 60-Day Re-eval Assessment We would like to know how confident you are in doing certain activities. Please select your confidence level for:: Select your confidence level for the following using the scale 1-10 where 1 is not at all confident and 10 is totally confident. Your score is the average of all 6 responses. Fatigue: How confident are you that you can keep the fatigue caused by your di sease from interfering with the things you want to do? Select Number: 8 Physical Discomfort or Pain: How confident are you that you can keep the physi jake discomfort or pain of your disease from interfering with the things you want to do? Select Number: 8 Emotional Distress: How confident are you that you can keep the emotional distress caused by your disease from interfering with the things you want to do? Select Number: 8 Other Symptoms or Health Problems: How confident are you that you can keep other symptoms or health problems from interfering with the things you want to do? Select Number: 8 Different Tasks and Activities: How confident are you that you can do the different tasks and activities needed to manage your health condition so as to reduce your need to see a doctor? Select Number: 9 Medication: How confident are you that you can do things other than just taking medication to reduce how much your illness affects your everyday life? Select Number: 10 Total Score:: 8 Nutrition Survey
[2022-07-16 08:17] VITALS: BP 136/58; BP 150/62; BP 172/88; BMI 28.5
== END 2022-07-30 23:59 ==
LOC: CR 09:30
PROVIDERS: PCP Internal Medicine; Referring Provider Internal Medicine Cardiovascular Disease; Visit Provider Internal Medicine Cardiovascular Disease
DX: I25.119 Atherosclerotic heart disease of native coronary artery with unspecified angina pectoris (principal); I35.0 Nonrheumatic aortic (valve) stenosis; R06.00 Dyspnea, unspecified; Z95.5 Presence of coronary angioplasty implant and graft
CPT/HCPCS: 93798

== ENCOUNTER 2022-09-10 11:48 | Emergency (ER) | payer MEDICARE, OTHER, SELFPAY ==
[2022-09-07 16:12] VITALS: BMI 28.5
[2022-09-10 11:49] VITALS: BP 103/75; PULSE 64; RESP 18; TEMP 35.9; O2SAT 97; BMI 27.6
--- NOTE | 2022-09-10 12:26 | ED.VIS.FALL ---
HPI HPI - Fall History of Present Illness Chief Complaint: Fall Occured/Mechanism Occurred: Today Narrative: Patient missed a step and fell Fall down steps #: 1 Pain/Injury Location: Right foot Quality of Pain: Throbbing Worsened by: Ambulation Relieved by: Rest Associated Symptoms Associated Symptoms: Negative for Parasthesias, Weakness, Loss of function, Inability to ambulate, Loss of consciousness or Amnesia Narrative Narrative: Patient presents with right foot pain that began after a fall today. Patient states she was walking down some steps and missed the last step and twisted her right foot. Patient states she fell against a wall and hit the right side of her head against the wall. Patient denies any loss of consciousness. Patient denies any swelling over the right side of her face or head. Patient states her pain is mostly in her right foot. Patient states it is worse with ambulation. Patient states it is better with rest. Patient describes her pain as throbbing. Patient denies any nausea or vomiting. Patient denies any visual changes. Patient denies any other injuries. PFSH PFSH Medical History Atherosclerotic heart disease [place] coronary artery w/angina pectoris Bereavement counseling Bereavement due to life event COVID-19 (08/31/20) Diverticulitis Essential (primary) hypertension Generalized OA Hyperlipidemia Nonrheumatic aortic (valve) stenosis Psoriatic arthritis Sleep apnea UTI (urinary tract infection) Home Medications cyanocobalamin (vitamin B-12) 1,000 mcg tablet 1,000 mcg PO DAILY SUPPLEMENT 02/06/17 [History Last Taken 05/01/17] aspirin 81 mg tablet,delayed release (Adult Low Dose Aspirin) 81 mg PO QDAY [facility] 10/02/17 [History Last Taken 03/02/22] calcium carb-vit D3-minerals 600 mg calcium-400 unit tablet 1 tab PO QDAY vitamin 10/02/17 [History Last Taken Unknown] melatonin 10 mg capsule 10 mg PO HS PRN Sleep 02/02/19 [History Last Taken Unknown] multivitamin 1 tab PO DAILY vitamin 02/02/19 [History Last Taken Unknown] ascorbic acid (vitamin C) 1,000 mg tablet 1 g PO BID vitamin 02/10/21 [History Last Taken Unknown] acetaminophen 650 mg tablet,extended release 1,300 mg PO Q12H arthritis 02/22/22 [History Last Taken Unknown] omega 9-pjp-iuw-fish oil 300 mg-1,000 mg capsule (Fish Oil) 1 cap PO DAILY supplement 02/22/22 [History Last Taken Unknown] ticagrelor 90 mg tablet (Brilinta) 90 mg PO BID #180 tabs 03/03/22 [Rx Last Taken Unknown] albuterol sulfate 90 mcg/actuation aerosol inhaler 2 puff inhalation Q4H PRN shortness of breath or wheezing #8.5 grams 05/17/22 [Rx Last Taken Unknown] fluticasone furoate 200 mcg-vilanterol 25 mcg/dose inhalation powder (Breo Ellipta) 1 inh inhalation DAILY #3 ea 05/17/22 [Rx Last Taken Unknown] metoprolol succinate 50 mg tablet,extended release 24 hr 50 mg PO DAILY BLOOD PRESSURE #90 tabs 07/19/22 [Rx Last Taken Unknown] esomeprazole magnesium 20 mg capsule,delayed release 20 mg PO DAILY #30 caps 07/26/22 [Rx Last Taken Unknown] pravastatin 40 mg tablet See Rx Instructions .Route .COMPLEX #90 tabs 08/28/22 [Rx Last Taken Unknown] temazepam 7.5 mg capsule 7.5 mg PO QHS PRN sleep #30 caps 08/29/22 [Rx Last Taken Unknown] losartan 50 mg-hydrochlorothiazide 12.5 mg tablet 1 tab PO BID this is a dose increase #180 tabs 08/30/22 [Rx Last Taken Unknown] Allergy/AdvReac Type Severity Reaction Status Date / Time meloxicam AdvReac Nausea Verified 09/10/22 11:49 methotrexate AdvReac Nausea Verified 09/10/22 11:49 NSAIDS (Non-Steroidal AdvReac Nausea Verified 09/10/22 11:49 Anti-Inflamma Sulfa (Sulfonamide AdvReac Nausea Verified 09/10/22 11:49 Antibiotics) Family History Brother Heart disease AV replaced and CABG X 1 CAD (coronary artery disease) CABG x 1 w/ AVR Surgical History H/O aortic valve replacement (04/08/17) History of colonoscopy History of coronary artery stent placement (03/02/22) History of left heart catheterization (03/14/17) History of partial colectomy (~2011) History of shoulder surgery Social History Smoking Status: Former smoker how long ago did patient quit smokin + years ago alcohol intake: current alcohol intake frequency: a few times a week Alcohol type: hard liquor substance use type: does not use caffeine: Yes Type: coffee Number of servings: 2 ROS ROS ED Constitutional Constitutional ED: Denies chills or fever(s) Eyes Eyes: Denies blurry vision or change in vision ENT ENT ED: Denies rhinorrhea or sore throat Cardiovascular Cardiovascular: Denies chest pain or palpitations Respiratory/Chest Respiratory/Chest: Denies cough or dyspnea Gastrointestinal Gastrointestinal: Denies nausea or vomiting Genitourinary Genitourinary ED: Denies dysuria or hematuria Musculoskeletal Musculoskeletal: Denies back pain or neck pain Integumentary Denies abscess or rash Neurologic Neurologic: Denies headache(s) or weakness Allergic/Immunologic Allergic/Immunologic ED: Denies mouth swelling or urticaria EXAM Physical Exam Const Vital Signs: 09/10/22 11:49 Temperature 96.6 F L Temperature Source Temporal Pulse Rate 64 Respiratory Rate 18 Blood Pressure 103/75 Blood Pressure Mean 84 Pulse Ox 97 Oxygen Delivery Method Room Air Positive well nourished and well developed General Appearance ED: well developed and NAD HEENT Reports moist mucous membranes Neck supple and no JVD GI Palpation: soft Extremity Extremity Narrative: There is tenderness, mild edema, and ecchymosis over the base of the fifth metatarsal of the right foot. There is no bony crepitance or step-off. There is no obvious deformity noted. Range of motion was limited in all motions of the right foot secondary to pain. There is no tenderness over the medial or lateral malleolus. There is no tenderness over the proximal fibula. Neuro oriented x3, CN's II-XII intact bilaterally and no sensory deficits noted Sensorium / Orientation: alert Motor Exam: strength 5/5 throughout Psych mental status grossly normal Skin no rashes or lesions noted MDM MDM MDM Narrative Medical decision making narrative: X-rays of the right foot were obtained. There are 3 views. On my interpretation, there is a nondisplaced fracture at the base of the fifth metatarsal. Radiologist also interpreted the x-rays and agrees. Patient was placed in a walking boot. Patient was instructed to ice and elevate the right foot. Patient states she does well with Tylenol for pain. Patient was instructed to continue with this. Patient was given a referral for Dr. Medina for orthopedics. Patient was instructed to follow-up in 5 to 7 days patient understands and is agreeable with the plan. All questions were answered. Discharge Plan Triage Chief Complaint: Fall Other Complaint: Lower Extremity Injury ED Provider: Benny Harris Dx/Rx/DC Orders Clinical Impression: Closed nondisplaced fracture of fifth right metatarsal bone, Fall Prescriptions: No Action aspirin [Adult Low Dose Aspirin] 81 mg tablet,delayed release (DR/EC) 81 mg PO QDAY calcium carb-vit D3-minerals 600 mg calcium-400 unit tablet 600 mg calcium- 400 unit tablet 1 tab PO QDAY multivitamin tablet 1 tab PO DAILY melatonin 10 mg capsule 10 mg PO HS PRN (Reason: Sleep) ascorbic acid (vitamin C) 1,000 mg tablet 1 g PO BID omega 9-aat-fuk-fish oil [Fish Oil] 300-1,000 mg capsule 1 cap PO DAILY Breo Ellipta 200-25 mcg/dose blister with device 1 inh inhalation DAILY Qty: 3 6RF albuterol sulfate 90 mcg/actuation HFA aerosol inhaler 2 puff inhalation Q4H PRN (Reason: shortness of breath or wheezing) Qty: 8.5 3RF Rx Instructions: administer with spacer esomeprazole magnesium 20 mg capsule,delayed release(DR/EC) 20 mg PO DAILY Qty: 30 1RF cyanocobalamin (vitamin B-12) 1,000 MCG tablet 1,000 mcg PO DAILY Label Comments: supplement acetaminophen 650 mg tablet extended release 1,300 mg PO Q12H Label Comments: pain Brilinta 90 mg Tablet 90 mg PO BID Qty: 180 3RF metoprolol succinate 50 mg tablet extended release 24 hr 50 mg PO DAILY Qty: 90 3RF pravastatin 40 mg tablet See Rx Instructions .ROUTE .COMPLEX Qty: 90 3RF Dose Instruction: TAKE 1 TABLET every evening at bedtime. Rx Instructions: TAKE 1 TABLET every evening at bedtime. temazepam 7.5 mg capsule 7.5 mg PO QHS PRN (Reason: sleep) Qty: 30 0RF losartan-hydrochlorothiazide 50-12.5 mg tablet 1 tab PO BID Qty: 180 3RF Primary Care Provider: Stacey Robledo Referrals: Obed Medina DO [Med Staff - Active Staff] - 5-7 Days Stacey Robledo MD [Primary Care Provider] - 1-2 Weeks Disposition Disposition: Home, Self Care
--- NOTE | 2022-09-10 13:20 | RAD_ITS ---
STUDY: X-RAY - RIGHT FOOT CLINICAL: Female, 77 years old. Pain and swelling following a recent fall. TECHNIQUE: 3 view(s) of the foot. COMPARISON: None. FINDINGS: There is a plantar calcaneal spur. Degenerative changes at the distal tarsal metatarsal joints. Nondisplaced transverse fracture at the base of the fifth metatarsal. There is degenerative arthrosis of the metatarsophalangeal joint of the hallux with a hallux valgus deformity. Normal tibial and fibular sesamoid bones. Normal interphalangeal joint of the great toe. Normal phalanges of the great toe. Normal second through fifth metatarsophalangeal joints. Normal interphalangeal joints and phalanges of the lesser toes. Soft tissue swelling. RAD/Foot min 3 Views IMPRESSION: Nondisplaced fracture at the base of the fifth metatarsal with overlying soft tissue swelling. Degenerative changes at the first metatarsophalangeal joint with hallux valgus deformity as well as degenerative changes at the distal tarsometatarsal joints. Electronically Signed: Zhou Haley MD at 14:12 EST ,
[2022-09-10 14:01] VITALS: PULSE 62; RESP 16; O2SAT 96
== END 2022-09-10 14:31 | disposition home or self-care (01) ==
PROVIDERS: Emergency Provider Emergency Medicine; PCP Internal Medicine; Visit Provider Emergency Medicine
DX: S92.354A Nondisplaced fracture of fifth metatarsal bone, right foot, initial encounter for closed fracture (principal); I25.10 Atherosclerotic heart disease of native coronary artery without angina pectoris; G47.30 Sleep apnea, unspecified; Z86.16 Personal history of COVID-19; Z95.5 Presence of coronary angioplasty implant and graft; W10.9XXA Fall (on) (from) unspecified stairs and steps, initial encounter; Z87.891 Personal history of nicotine dependence
CPT/HCPCS: 73630; 99284

== ENCOUNTER → 2022-09-13 | Outpatient (CLI) | payer MEDICARE, OTHER, SELFPAY ==
[2022-09-07 16:12] VITALS: BMI 28.5
[2022-09-13 11:09] LABS: AST(SGOT) 17 U/L (15-37); Alanine Aminotransfer ALT/SGPT 28 U/L (13-56); Albumin, Serum 3.7 g/dL (3.2-5.0); Alkaline Phosphatase 68 U/L (45-117); Bilirubin, Direct 0.17 mg/dL (0.00-0.30); Cholesterol 168 mg/dL (200); Free T3 2.6 pg/mL (2.18-3.98); Globulin 3.6 g/dL (2.2-4.2); High Density Lipoprotein 64 mg/dL; Protein, Total 7.3 g/dL (6.4-8.2); Thyroid Stim Hormone (TSH) 1.81 uIU/mL (0.358-3.74); Triglycerides 148 mg/dL; Very Low Density Lipoprotein 30 mg/dL (5-40)
== END | disposition home or self-care (01) ==
PROVIDERS: PCP Internal Medicine; Visit Provider Nurse Practitioner Family
DX: E78.5 Hyperlipidemia, unspecified (principal); R53.83 Other fatigue
CPT/HCPCS: 36415; 80061; 80076; 84439; 84443; 84481

== ENCOUNTER 2023-05-07 07:28 | Day surgery (SDC) | payer MEDICARE, OTHER, SELFPAY ==
[2022-09-07 16:12] VITALS: BMI 28.5
[2023-05-07] VITALS (7 sets, daily range): BP systolic 104–113; BP diastolic 52–68; PULSE 66–78; RESP 16–18; TEMP 36.3–36.4; O2SAT 92–96; BMI 28.3
--- NOTE | 2023-05-07 07:46 | HP.PCM_ITS ---
History and Physical Date of Admission: 05/07/23 Intake Visit Reasons: RECALL LETTER- COLONOSCOPY Chief Complaint: colonoscopy Is patient in pain?: No Allergies meloxicam Adverse Reaction (Verified 04/04/23 09:48) Nauseamethotrexate Adverse Reaction (Verified 04/04/23 09:48) NauseaNSAIDS (Non-Steroidal Anti-Inflamma Adverse Reaction (Verified 04/04/23 09:48) NauseaSulfa (Sulfonamide Antibiotics) Adverse Reaction (Verified 04/04/23 09:48) Nausea Medications cyanocobalamin (vitamin B-12) 1,000 mcg tablet 1,000 mcg PO DAILY SUPPLEMENT 02/06/17 [History Confirmed 04/04/23] aspirin 81 mg tablet,delayed release (Adult Low Dose Aspirin) 81 mg PO QDAY heart health 10/02/17 [History Confirmed 04/04/23] calcium carb-vit D3-minerals 600 mg calcium-400 unit tablet 1 tab PO QDAY vitamin 10/02/17 [History Confirmed 04/04/23] multivitamin 1 tab PO DAILY vitamin 02/02/19 [History Confirmed 04/04/23] ascorbic acid (vitamin C) 1,000 mg tablet 1 g PO BID vitamin 02/10/21 [History Confirmed 04/04/23] acetaminophen 650 mg tablet,extended release 1,300 mg PO Q12H arthritis 02/22/22 [History Confirmed 04/04/23] ticagrelor 90 mg tablet (Brilinta) 90 mg PO BID #180 tabs 03/03/22 [Rx Confirmed 04/04/23] albuterol sulfate 90 mcg/actuation aerosol inhaler 2 puff inhalation Q4H PRN shortness of breath or wheezing #8.5 grams 05/17/22 [Rx Confirmed 04/04/23] fluticasone furoate 200 mcg-vilanterol 25 mcg/dose inhalation powder (Breo Ellipta) 1 inh inhalation DAILY #3 ea 05/17/22 [Rx Confirmed 04/04/23] losartan 50 mg-hydrochlorothiazide 12.5 mg tablet 1 tab PO BID this is a dose increase #180 tabs 08/30/22 [Rx Confirmed 04/04/23] metoprolol succinate 50 mg tablet,extended release 24 hr 50 mg PO DAILY BLOOD PRESSURE #90 tabs 10/12/22 [Rx Confirmed 04/04/23] trazodone 100 mg tablet 100 mg PO QHS PRN insomnia #90 tabs 12/06/22 [Rx Confirmed 04/04/23] pravastatin 40 mg tablet See Rx Instructions .Route .COMPLEX #90 tabs 12/10/22 [Rx Confirmed 04/04/23] flaxseed oil 1,000 mg capsule 1,000 mg PO DAILY 03/12/23 [History Confirmed 04/04/23] PFSH Medical History Atherosclerotic heart disease [place] coronary artery w/angina pectoris Bereavement counseling Bereavement due to life event COVID-19 (08/31/20) Diverticulitis Essential (primary) hypertension Generalized OA Hyperlipidemia Nonrheumatic aortic (valve) stenosis Psoriatic arthritis Sleep apnea UTI (urinary tract infection) Surgical History H/O aortic valve replacement (04/08/17) History of colonoscopy History of coronary artery stent placement (03/02/22) History of left heart catheterization (03/14/17) History of partial colectomy (~2011) History of shoulder surgery Family History Brother Heart disease AV replaced and CABG X 1 CAD (coronary artery disease) CABG x 1 w/ AVR Social History Smoking Status: Former smoker how long ago did patient quit smokin + years ago alcohol intake: current alcohol intake frequency: a few times a week Alcohol type: hard liquor substance use type: does not use caffeine: Yes Type: coffee Number of servings: 2 HPI HPI HPI: 77-year-old female. I have most recently seen her March 08, 2022. She had had a personal history of colon polyps. However at that time she had an acute placement of a drug-eluting coronary stent. My note reflects that I plan to see her after her cardiology 6-month review. As of March 14, 2023 she was seen by Dr. Jairon Banks for pulmonology review of her asthma and obstructive sleep apnea. She appears to be controlled on current therapy. She was seen by ROE Rey on March 12, 2023. She has a history of aortic valve replacement with a bioprosthetic valve 2017. He says a history of coronary artery stenting. Most recent cardiac catheterization was March 02, 2022 when she had a drug-eluting stent placed into her proximal LAD diagonal. By report while she was in [place] [facility]. She had an echocardiogram showing ejection fraction of 55% with 2/3 diastolic dysfunction immediate valve gradient 12 mmHg. It is also of note that on January 25, 2023 she had a stress test that was negative for ischemia. Among her other medications she is on low-dose aspirin and Brilinta. No complaints. Occasionally dark stools. She just got back from a vacation in [place] and she is also been in [place]. She did a significant mount of walking agrees. She has some right knee problems but she denies any chest pain or shortness of breath. Her previous colonoscopy performed by Dr. David Gomez on June 07, 2016. That demonstrated 4 sessile polyps found in the ascending colon they were from 4 to 7 mm in size. Recommendations at that time were for repeat colonoscopy at 3 years. Pathology demonstrated tubular adenoma. As we are currently greater than 3 years out I will recommend to the patient cardiology review at 6 months and then office follow-up to see if we could proceed with colonoscopy at that time ROS General General: Yes fatigue; No weight change, appetite, colon cancer, breast cancer or weakness HEENT HEENT: No difficulty swallowing, eye injury, eye surgery, swollen glands or hoarseness Endo Endocrine: No thyroid disease, diabetes mellitus, thyroid cancer, Hair loss, heat intolerance or cold intolerance Skin Skin: No rash or changing moles Musc Musculoskeletal: Yes arthritis; No back problems, rheumatoid arthritis, gout or joint pain Cardio Cardiovascular: Yes murmur, heart disease, high blood pressure and heart stent; No pacemaker, atrial fibrillation, heart attack, palpitations, shortness of breat with exertion or chest pain Psych Psychiatric: No depression, anxiety or hearing voices Resp Respiratory: No shortness of breath, Yes sleep apnea, Yes cough, No COPD, Yes asthma, No emphysema and No wheezing Gastro Gastrointestinal: No abdominal pain, No nausea or vomiting, Yes diarrhea, Yes constipation, No blood in stool, No acid reflux, No hemorrhoids, No ulcers, No gallbladder problem and No black,tarry stools [place] Hematologic: Yes blood thinners, No blood disorders, No bleeding, No anemia and No blood clots Neuro Neurologic: No system reviewed and no additional complaints, except as documented, No as per HPI, No abnormal gait, No abnormal hearing, No abnormal movements, No abnormal speech, No behavioral changes, No burning sensations, No confusion, No convulsions, No disequilibrium, No dizziness, No localized weakness, No frequent falls, No headache(s), No lack of coordination, No loss of vision, No memory loss, No numbness, No other visual disturbances, No radicular pain, No restless legs, No sensory deficit, No syncope, No tingling, No tremor(s), No weakness and No other Exam Const General: cooperative, healthy appearing, comfortable and no acute distress Nutritional Appearance: overweight HENMT Head: normal to inspection Eyes General: appearance normal, both eyes and all related structures Neck Neck: normal visual inspection Chest Chest palpation & inspection: normal inspection of the chest Resp Effort & Inspection: normal respiratory effort Auscultation: clear to auscultation bilaterally Cardio Rate: regular rate Rhythm: regular rhythm GI Palpation: soft and no hepatosplenomegaly Musc Cervical Spine: normal cervical lordosis Skin General: no rashes or lesions noted Neuro General: patient alert, patient awake and patient oriented x3 Extrem General: no calf tenderness Psych Appearance: grossly normal Assessment and Plan Assessment and Plan (1) Personal history of colonic polyps: Status: Acute Plan: The patient appears to be stable both from a cardiac and pulmonary standpoint. She makes comment that previously its been recommended to her to have follow-up colonoscopies every 3-year due to the number of polyps that she has had. She is now at 5 years. I propose for her a colonoscopy with possible biopsy or polypectomy as indicated. She is aware of the technique, benefit, risk, alternatives. It was suggested to her that she stop her Brilinta for 7 days per Paul Goodman NP-[place]. As this is a colonoscopy we will have her hold it for 3 days. Because of her medical comorbidities we will use monitored anesthesia care. She is aware of the technique, benefit, risk, alternatives. She has had an opportunity to ask and have questions answered. We will schedule and proceed at her discretion. I appreciate the ongoing opportunity of assisting with her surgical care Copy: Dr. Stacey Salas M.D., F.A.C.S. I have examined the patient and the H&P has been reviewed. There are no clinical changes since date of exam. Bill Salas M.D., F.A.C.S.
[2023-05-07] MEDS: Lactated Ringers 1,000 ML 15 ML IV (07:54)
--- NOTE | 2023-05-07 08:30 | COLBX_PTH ---
PATIENT: KARYN MULLER LOC: EN U#:[id number] AGE/SX: 77/F ROOM: RE05/07/[address]: Dr. Bill Salas MD : 1945 BED: DIS: 05/07/2023 SPEC #: [id number] RECD: 05/07/23 09:54 STATUS: JAYE UMANZOR #: [id number] JESS: 05/07/23 08:[address]: Bill Salas DEPT: SURGICAL PATHOLOGY RECD BY: Malena Ricketts ENTERED: 05/07/23 10:15 SP TYPE: COLON BX OTHR DR: Dr. Stacey Robledo MD Tissues: A - Cecum, NOS B - Transverse colon Procedures: Surgery Specimen Level IV HEADER OPERATION: Colonoscopy (MAC) with polypectomy PRE-OP DIAGNOSIS: History of colonic polyps TISSUE SUBMITTED: A - Cecum polyp, B - Mid transverse polyp cold snare MICROSCOPIC DIAGNOSIS A. Cecum polyp, polypectomy: Fragments of tubular adenoma. B. Mid transverse colon polyp, polypectomy: Fragments of tubular adenoma. LILLI:miguelito 05/08/2023 MICROSCOPIC DESCRIPTION Slides are reviewed. GROSS DESCRIPTION A - Received in fixative is one container labeled with the patient's name and designated cecum polyp. The specimen consists of multiple irregular fragments of light berger soft tissue that in aggregate measure 0.8 x 0.2 x 0.1 cm. The specimen is totally submitted in one cassette. B - Received in fixative is one container labeled with the patient's name and designated mid transverse polyp cold snare. The specimen consists of multiple irregular fragments of light berger soft tissue that in aggregate measure 0.3 x 0.2 x 0.1 cm. The specimen is totally submitted in one cassette. / LILLI:miguelito 05/07/2023 TC:1 CPT: 32277 x2
--- NOTE | 2023-05-07 09:19 | OP.CCLET_ITS ---
05/07/2023 Stacey Robledo [facility] [address] [place] [address] Re : Colonoscopy procedure for Wanda Krishnamurthy Dear Dr. Robledo This procedure was performed on Sunday, May 07, 2023. My impressions and recommendations are as follows: Impressions : - Preparation of the colon was fair. - Hemorrhoids found on perianal exam. - No specimens collected. Recommendations : - Discharge patient to home [Means]. - Resume previous diet. - Continue present medications. - Telephone my office for pathology results in 1 week. - Repeat colonoscopy in 5 years for surveillance. My findings are described in the full procedure note, which is enclosed. If I can be of further assistance, please feel free to contact me at Doctor phone number(s): Work: . Sincerely, Bill Salas MD 05/07/2023 9:18:17 AM This report has been signed electronically.
--- NOTE | 2023-05-07 09:19 | OP.COLON_ITS ---
Patient Name: Wanda Krishnamurthy Procedure Date: 05/07/2023 8:47 AM Date of : 1945 Age: 77 Procedure: Colonoscopy Indications: High risk colon cancer surveillance: Personal history of colonic polyps Providers: Bill Salas MD Medicines: See the Anesthesia note for documentation of the administered medications Patient Profile: Last Colonoscopy: date unknown. Complications: No immediate complications. Procedure: Pre-Anesthesia Assessment: - Prior to the procedure, a History and Physical was performed, and patient medications and allergies were reviewed. The patient's tolerance of previous anesthesia was also reviewed. The risks and benefits of the procedure and the sedation options and risks were discussed with the patient. All questions were answered, and informed consent was obtained. Prior Anticoagulants: The patient has taken no previous anticoagulant or antiplatelet agents. ASA Grade Assessment: II - A patient with mild systemic disease. After reviewing the risks and benefits, the patient was deemed in satisfactory condition to undergo the procedure. After I obtained informed consent, the scope was passed under direct vision. Throughout the procedure, the patient's blood pressure, pulse, and oxygen saturations were monitored continuously. The adult colonoscope was introduced through the anus and advanced to the cecum, identified by appendiceal orifice and ileocecal valve. The colonoscopy was technically difficult and complex due to poor endoscopic visualization. The patient tolerated the procedure well. The quality of the bowel preparation was fair. Scope In: 8:55:42 AM Scope Withdrawal Time 0 hours 8 minutes 9 seconds Scope Out: 9:10:05 AM Total Procedure Duration Time 0 hours 14 minutes 23 seconds Findings: Hemorrhoids were found on perianal exam. A 4 mm polyp was found in the cecum. The polyp was sessile. The polyp was removed with a cold biopsy forceps. Resection and retrieval were complete. A 6 mm polyp was found in the mid transverse colon. The polyp was sessile. The polyp was removed with a cold snare. Resection and retrieval were complete. Multiple diverticula were found in the sigmoid colon and descending colon. Scattered diverticula were found in the ascending colon. Impression: - Preparation of the colon was fair. - Hemorrhoids found on perianal exam. - No specimens collected. Recommendation: - Discharge patient to home [Means]. - Resume previous diet. - Continue present medications. - Telephone my office for pathology results in 1 week. - Repeat colonoscopy in 5 years for surveillance. Procedure Code(s): --- Professional --- 16426, Colonoscopy, flexible; with removal of tumor(s), polyp(s), or other lesion(s) by snare technique 64656, 59, Colonoscopy, flexible; with biopsy, single or multiple Diagnosis Code(s): --- Professional --- Z86.010, Personal history of colonic polyps K64.9, Unspecified hemorrhoids CPT copyright 2017 [employer]. All rights reserved. The codes documented in this report are preliminary and upon economics teacher review may be revised to meet current compliance requirements. Bill Salas MD 05/07/2023 9:18:17 AM This report has been signed electronically. Number of Addenda: 1 Note Initiated On: 05/07/2023 8:47 AM Addendum Number: 1 Addendum Date: 05/07/2023 9:20:33 AM The patient has surgical changes at the rectosigmoid approximately 12 cm widely patent. No evidence of stricturing. Previous colocolonic anastomosis. Bill Salas M.D., F.A.C.S. Bill Salas MD 05/07/2023 9:21:19 AM This report has been signed electronically.
== END 2023-05-07 10:30 | disposition home or self-care (01) ==
LOC: EN 07:29 → AC 07:30
PROVIDERS: PCP Internal Medicine; Referring Provider Internal Medicine; Visit Provider Surgery
PROC: 0DJD8ZZ Inspection of Lower Intestinal Tract, Via Natural or Artificial Opening Endoscopic (ICD-10-PCS; CPT 45378; principal; 2023-05-07 08:25)
DX: Z12.11 Encounter for screening for malignant neoplasm of colon (principal); I25.119 Atherosclerotic heart disease of native coronary artery with unspecified angina pectoris; I10 Essential (primary) hypertension; Z95.5 Presence of coronary angioplasty implant and graft; Z87.891 Personal history of nicotine dependence; J45.909 Unspecified asthma, uncomplicated; K64.4 Residual hemorrhoidal skin tags; Z86.010 Personal history of colon polyps; I25.10 Atherosclerotic heart disease of native coronary artery without angina pectoris; Z79.02 Long term (current) use of antithrombotics/antiplatelets; Z79.82 Long term (current) use of aspirin; D12.0 Benign neoplasm of cecum; D12.3 Benign neoplasm of transverse colon; Z79.899 Other long term (current) drug therapy; K21.9 Gastro-esophageal reflux disease without esophagitis; Z90.49 Acquired absence of other specified parts of digestive tract; E78.5 Hyperlipidemia, unspecified; Z87.19 Personal history of other diseases of the digestive system
CPT/HCPCS: 45385; 45380; 88305; J7120; J2405

== ENCOUNTER → 2024-01-31 | Outpatient (CLI) | payer MEDICARE, OTHER, SELFPAY ==
[2022-09-07 16:12] VITALS: BMI 28.5
[2024-01-31 13:10] LABS: Absolute Lymphocyte Count 1.29 X10^3/uL (0.83-4.51); Absolute Neutrophil Count 4.2 X10^3/uL (2.0-7.7); Basophil# 0.04 X10^3/uL; Basophil% 0.6 % (0-1); Eosinophil# 0.28 X10^3/uL; Eosinophils% 4.2 % (0-5); Hematocrit 35.9 % (37-47); Hemoglobin 11.9 g/dL (12.0-15.0); Lymphocyte # 1.29 X10^3/ul (0.83-4.51); Lymphocyte % 19.3 % (19-41); Mean Corp Hgb Conc 33.1 g/dL (32-36); Mean Corpuscular Hgb 30.7 pg (27.0-32.0); Mean Corpuscular Volume 92.5 fL (81-99); Mean Platelet Vol. 9.2 fl (6.2-12.0); NRBC Flagged by Analyzer 0 % (0-5); Neutrophil # 4.23 X10^3/uL (2.7-7.7); Neutrophil % 63.3 % (47-70); Platelet Count 301 K/mm3 (150-450); RBC Distribution Width CV 13.1 % (11.6-14.6); Red Blood Count 3.88 M/mm3 (4.2-5.4); White Blood Count 6.7 K/mm3 (4.4-11.0)
[2024-01-31 13:58] LABS: Anion Gap 5 (5-15); BUN 16 mg/dL (7-18); BUN/Creat Ratio 24.7 RATIO (10-20); Calcium,Total 9.8 mg/dL (8.5-10.1); Chloride 100 mmol/L (98-107); Creatinine, Serum 0.65 mg/dL (0.55-1.02); EST Glomerular Filtration Rate 94 mL/min (>60); Est Glom Filt Rate - Afr Amer 113 mL/min (>60); Glucose 123 mg/dL (74-106); Potassium 3.7 mmol/L (3.5-5.1); Sodium Level 134 mmol/L (136-145); Thyroid Stim Hormone (TSH) 1.48 uIU/mL (0.358-3.74)
== END | disposition home or self-care (01) ==
LOC: LAB 11:35
PROVIDERS: PCP Internal Medicine; Referring Provider Nurse Practitioner Gerontology; Visit Provider Nurse Practitioner Gerontology
DX: R53.83 Other fatigue (principal); R06.00 Dyspnea, unspecified; I25.119 Atherosclerotic heart disease of native coronary artery with unspecified angina pectoris; M79.89 Other specified soft tissue disorders
CPT/HCPCS: 36415; 80048; 84443; 85025

== ENCOUNTER → 2024-02-03 | Outpatient (CLI) | payer MEDICARE, OTHER, SELFPAY ==
[2022-09-07 16:12] VITALS: BMI 28.5
[2024-02-03 09:46] LABS: Absolute Lymphocyte Count 1.37 X10^3/uL (0.83-4.51); Absolute Neutrophil Count 4.5 X10^3/uL (2.0-7.7); Basophil# 0.03 X10^3/uL; Basophil% 0.4 % (0-1); Eosinophil# 0.25 X10^3/uL; Eosinophils% 3.6 % (0-5); Hematocrit 37.7 % (37-47); Hemoglobin 12.4 g/dL (12.0-15.0); Lymphocyte # 1.37 X10^3/ul (0.83-4.51); Mean Corp Hgb Conc 32.9 g/dL (32-36); Mean Corpuscular Hgb 30.5 pg (27.0-32.0); Mean Corpuscular Volume 92.6 fL (81-99); Mean Platelet Vol. 8.8 fl (6.2-12.0); Monocyte# 0.73 X10^3/uL; Monocyte% 10.6 % (0-10); NRBC Flagged by Analyzer 0 % (0-5); Neutrophil # 4.45 X10^3/uL (2.7-7.7); Platelet Count 292 K/mm3 (150-450); RBC Distribution Width CV 13.1 % (11.6-14.6); Red Blood Count 4.07 M/mm3 (4.2-5.4); White Blood Count 6.9 K/mm3 (4.4-11.0)
[2024-02-03 10:05] LABS: Vitamin D,25 Hydroxy 33.6 ng/mL
[2024-02-03 10:51] LABS: ALB/GLOB Ratio 1.1 RATIO (0.9-2.4); AST(SGOT) 18 U/L (15-37); Alanine Aminotransfer ALT/SGPT 26 U/L (13-56); Albumin, Serum 3.7 g/dL (3.2-5.0); Alkaline Phosphatase 67 U/L (45-117); Anion Gap 9 (5-15); BUN 18 mg/dL (7-18); BUN/Creat Ratio 22.7 RATIO (10-20); Calcium,Total 9.2 mg/dL (8.5-10.1); Chloride 98 mmol/L (98-107); Cholesterol 176 mg/dL (200); Creatinine, Serum 0.79 mg/dL (0.55-1.02); EST Glomerular Filtration Rate 74 mL/min (>60); Est Glom Filt Rate - Afr Amer 90 mL/min (>60); Globulin 3.4 g/dL (2.2-4.2); Glucose 141 mg/dL (74-106); High Density Lipoprotein 60 mg/dL; Potassium 3.8 mmol/L (3.5-5.1); Protein, Total 7.1 g/dL (6.4-8.2); Sodium Level 133 mmol/L (136-145); Thyroid Stim Hormone (TSH) 1.86 uIU/mL (0.358-3.74); Triglycerides 151 mg/dL; Very Low Density Lipoprotein 30 mg/dL (5-40)
[2024-02-03 13:51] LABS: Hemoglobin A1c 6.6 % (3.8-5.6)
== END | disposition home or self-care (01) ==
LOC: LAB 08:57
PROVIDERS: PCP Internal Medicine; Referring Provider Internal Medicine; Visit Provider Internal Medicine
DX: I25.119 Atherosclerotic heart disease of native coronary artery with unspecified angina pectoris (principal); E78.5 Hyperlipidemia, unspecified; I10 Essential (primary) hypertension; G47.30 Sleep apnea, unspecified; Z95.5 Presence of coronary angioplasty implant and graft; Z95.2 Presence of prosthetic heart valve; R73.9 Hyperglycemia, unspecified; Z13.220 Encounter for screening for lipoid disorders; E55.9 Vitamin D deficiency, unspecified
CPT/HCPCS: 36415; 80053; 80061; 82306; 83036; 84443; 85025

== ENCOUNTER → 2024-04-30 | Outpatient (CLI) | payer MEDICARE, OTHER, SELFPAY ==
[2022-09-07 16:12] VITALS: BMI 28.5
--- NOTE | 2024-04-30 14:09 | ECHOD_ITS ---
Reason For Study: Prosthetic Heart Valve Procedure This was a 2D Doppler, Color Flow transthoracic echocardiogram. Exam performed in department. Left Ventricle Normal LV size. Left ventricular systolic function is normal. The left ventricular ejection fraction is 60 %. Stage 1 diastolic dysfunction. No regional wall motion abnormalities noted. Right Ventricle Normal RV size. Normal systolic function. Atria Normal left atrium. Normal right atrium. Mitral Valve Normal mitral valve. Tricuspid Valve Normal tricuspid valve. Mild (1+) tricuspid valve insufficiency. Pulmonary artery systolic pressure is 33 mmHg. Aortic Valve Peak aortic valve gradient 28 mmHg. Mean aortic valve gradient 15 mmHg. Bioprosthetic aortic valve. Pulmonic Valve Normal pulmonic valve. Great Vessels Normal aortic root. The pulmonary artery is normal size. Inferior vena cava collapse with respiration. Pericardium/Pleural No pericardial effusion. MMode/2D Measurements & Calculations LVIDd: 3.9 cm IVSd: 1.2 cm LVOT diam: 1.9 cm LVIDs: 2.5 cm LVPWd: 1.0 cm LVOT area: 2.8 cm2 RVDd: 3.4 cm FS: 35.8 % Ao root diam: 3.3 cm LAV(MOD-bp): 53.7 ml LA A4 area: 20.0 cm2 LA dimension: 4.2 cm LAV(MOD-bp) Indexed: 30.5 ml/m2 LAV(MOD-sp2): 49.6 ml LAV(MOD-sp4): 56.1 ml RA A4 area: 16.4 cm2 Time Measurements MV dec time: 0.32 sec Doppler Measurements & Calculations MV E max efrain: 101.4 cm/sec Lat Peak E' Efrain: 11.0 cm/sec Med Peak E' Efrain: 5.6 cm/sec MV A max efrain: 111.8 cm/sec E/E' lat: 9.2 E/E' med: 18.0 MV E/A: 0.91 MV V2 max: 119.3 cm/sec MV P1/2t max efrain: 100.7 cm/sec Ao V2 max: 267.0 cm/sec MV max P.7 mmHg MV P1/2t: 104.8 msec Ao max P.5 mmHg MV V2 mean: 58.7 cm/sec MV dec slope: 281.3 cm/sec2 Ao V2 mean: 185.2 cm/sec MV mean P.7 mmHg Ao mean P.3 mmHg MV V2 VTI: 42.1 cm MVA(P1/2t): 2.1 cm2 Ao V2 VTI: 63.4 cm MVA(VTI): 2.6 cm2 AV (velocity ratio): 0.60 SACHIN(I,D): 1.7 cm2 SACHIN(V,D): 1.6 cm2 LV V1 max: 151.4 cm/sec SV(LVOT): 107.6 ml PA V2 max: 94.0 cm/sec LV V1 max P.2 mmHg PA max PG (full): 0.52 mmHg LV V1 mean P.7 mmHg LV V1 mean: 114.7 cm/sec LV V1 VTI: 37.8 cm TR max efrain: 272.4 cm/sec TR max P.7 mmHg ECHO/Echo Complete Interpretation Summary Normal LV size. Left ventricular systolic function is normal. The left ventricular ejection fraction is 60 %. Bioprosthetic aortic valve. Mean aortic valve gradient 15 mmHg. Stage 1 diastolic dysfunction. Ordering Physician: Paul Goodman Referring Physician: Stacey Robledo M.D. Performed By: Desmond Jaquez and Student
== END | disposition home or self-care (01) ==
LOC: CVS 14:05
PROVIDERS: PCP Internal Medicine; Referring Provider Nurse Practitioner Family; Visit Provider Nurse Practitioner Family
DX: Z95.2 Presence of prosthetic heart valve (principal); I25.119 Atherosclerotic heart disease of native coronary artery with unspecified angina pectoris; I10 Essential (primary) hypertension; E78.00 Pure hypercholesterolemia, unspecified
CPT/HCPCS: 93306

== ENCOUNTER 2024-07-13 09:00 | Outpatient (RCR) | payer MEDICARE, OTHER, SELFPAY ==
[2024-05-01 09:54] VITALS: BMI 28.5
--- NOTE | 2024-05-20 16:22 | HP.PTEVAL_ITS ---
Patient's Visit Information Visit Information Visit Information: KARYN MULLER is a 78 year old F referred to Physical Therapy by Dr. Obed Medina DO with a diagnosis of R knee OA. Date of Evaluation: 05/20/24 Physical Therapist: Benny Bird, DPT, OCS, CSCS Visit Plan Frequency: 3x /Week Duration: 4-6 Weeks Plan: 3x/week for 4-6 weeks for pool based hip, core and knee strength and progression to I for membership/FLA pool as able. LB ROM should be included. Subjective Subjective: Not much cartilage in R knee. painful R knee for most of this year. Doing less this year because of the knee. Treated with steroid injections 3 months ago and they helped , may try gel treatments. Will have another steroid injection May due to a trip to [place] in June. Previous injection helped 80% but it is wearing off. 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 some strenuous day. Enjoys walking as exercises . Steps are very difficult and she lives on one floor but has steps if she wants to use them. Has railings. L knee is healthy. Basic ADLS, all I. [place] [facility] and it is flat down there. Last October walked 100 miles in 28 days and was comfortable at that time. Pain R knee: Pain Intensity (Out of 10): 4 Pain Intensity Range: 0, 4 and 6 Comment: worse with walking and being on it. Objective Objective: Walks with some mild R antalgia today and 4/10 pain. Trasnfers bed and chair I with UE, steps up with reciprocal and pulling B UE. descending L only with rails. Obvious valgus in R knee with ambualtion and at rest. reflexes 2/3 patella and achilles Sensation LE WNL to gross lgiht touch strength hips rotations 3 B, abd 3, ext 3, flexion 4- with opposite IR. knee strength ext 3+ R withn crepitus and 4 on L, HS is 3+ B. ankles 4- B. tenderness to touch at lateral joint line R knee. patella moves well. + R scour and crepitus with resisted extension. - varus and valgus testing. Balance/Special Test Scores Lower Extremity Functional Score: 30 Goals Goal 1:: I appropriate pool ex to minimize future problems( HP membership and FLA for winter) Goal Time Frame: 4-6 Weeks Goal 2:: Pain in R knee 2/10 at worst and 50% better Goal Time Frame: 4-6 Weeks Goal 3:: Steps reciprocal without pain Goal Time Frame: 4-6 Weeks Goal 4:: LEFS 50 Goal Time Frame: 4-6 Weeks Rehabilitation Potential Physical Therapy Diagnosis: R knee pain limiting comfortable function Rehabilitation Potential: Questionable Anticipated Interventions Patient/Client Instruction: Educate patient on: Condition and Plan of Care For the Purpose of:: To decrease pain, To improve nutrient delivery to tissue, To improve muscle performance and motor function and To improve gait and locomotor functions Therapeutic Exercise to Include: Strength training, Gait and locomotor training, In an aquatic setting, Passive ROM and Active ROM For the Purpose of:: To decrease pain, To increase ROM, To improve nutrient delivery to tissue and To increase tolerance to activity/condition/position Text: Thank you for the opportunity to evaluate your patient. For Medicare and Medicare HMO plans, please review the plan of care and approve it. It will need to be FAXED BACK to us at [phone] for Medicare purposes. For Medicare only, by signing this I certify the plan of care. Please let me know if there are questions or concerns regarding this plan of care. Physician Signature: Date:
--- NOTE | 2024-07-13 09:29 | HP.PTDCSUM ---
Discharge Summary D/C summary: It has been my pleasure to treat KARYN MULLER referred by Dr. Obed Medina DO, with the diagnosis of R knee OA for a total of 15 visit(s). Discharge Date: 07/13/24 Please see the following information for a summary of their discharge status. Subjective Subjective: Pain in knee while on vacation normal and 2/10 up to 6/10 at times. Volume of walking is worse. Avoided stairs due to knee but train had a lift. Straight stairs at home are avoided when can but can do them. Did not do ex while gone. No f/u scheduled with Dr. Ford. Pt wants to lose 10# and doing chair yoga. Pain R knee: Pain Intensity (Out of 10): 0 LBP: Pain Intensity (Out of 10): 0 Overall Improvement % Improvement: 40 Objective Objective/Function: Walksing well today with obvious R knee valgus but no pain this am. Steps are using L only, can use R but requires pulling on two railings. Overall doing well and will get back to [facility] after her recent [employer] vacation and feels like she can do that herself vs more therapy. Goals Goal 1:: I appropriate pool ex to minimize future problems( membership and FLA for winter) Goal Progress: Goal Met Goal 2:: Pain in R knee 2/10 at worst and 50% better Goal Progress: Progressing Goal 3:: Steps reciprocal without pain Goal Progress: Not Progressing Goal 4:: LEFS 50 Goal Progress: Progressing Plan Plan: d/c to [facility] D/C Information d/c sentence: If there are questions or concerns regarding this patient's physical therapy, please feel free to call me at [phone]. Thank you for the referral of this patient. Sincerely, Benny Bird, DPT, OCS, CSCS Balance/Gait/Functional tests Balance/Special Test Scores Lower Extremity Functional Score: 42 Improvement % Improvement: 40
== END 2024-07-13 19:00 | disposition home or self-care (01) ==
LOC: PT 09:00
PROVIDERS: PCP Internal Medicine; Referring Provider Orthopaedic Surgery; Visit Provider Orthopaedic Surgery
DX: M17.11 Unilateral primary osteoarthritis, right knee (principal)
CPT/HCPCS: 97110; 97113; 97161; 97530

== ENCOUNTER → 2024-12-01 | Outpatient (CLI) | payer MEDICARE, OTHER, SELFPAY ==
[2024-05-01 09:54] VITALS: BMI 28.5
== END | disposition home or self-care (01) ==
LOC: LABSPEC 15:00
PROVIDERS: PCP Internal Medicine; Visit Provider Internal Medicine
DX: R30.0 Dysuria (principal)
CPT/HCPCS: 87086; 87088; 87186

== ENCOUNTER 2024-12-04 12:00 | Outpatient (RCR) | payer MEDICARE, OTHER, SELFPAY ==
[2024-05-01 09:54] VITALS: BMI 28.5
--- NOTE | 2024-11-04 14:29 | HP.PTEVAL_ITS ---
Patient's Visit Information Visit Information Visit Information: KARYN MULLER is a 79 year old F referred to Physical Therapy by Dr. 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 Date of Evaluation: 11/04/24 Physical Therapist: Sonu Mast, PT, ATC Visit Plan Frequency: 2-3x /Week Duration: 4 Weeks Plan: R knee stretching and strengthening, balance and proprio, core stab ex's, nustep, and HEP Subjective Subjective: DOS: 10/07/24. Pt reports she had a R TKA performed at that time. Pt reports she had home health therapy for a couple weeks and is doing really well at this time. Pt notes she had a chronic Hx of R knee pain prior to the surgery. Pt is still in a lot of pain at this time, but notes she is glad she had the surgery as her pain is improving daily. Pt denies tingling or numbness in R LE at this time. Pt notes she continues to have sleep difficulty at this time secondary to pain. Pt reports she has 13 stairs to get to her garage, and is able to negotiate them one step at a time. 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 2/10 pain while sitting here at rest, 7/10 pain at worst (when she is stretching) Pain R knee: Pain Intensity (Out of 10): 2 Pain Intensity Range: 7 Objective Objective: Neuro: B LE sensation is WNL to light touch. ROM: L knee 0-127 degrees; R knee 0-10-110 degrees MMT: L knee flex= 27, ext= 28 #F; R knee flex= 17, ext= 24 #F TU.28 sec Balance/Special Test Scores Lower Extremity Functional Score: 27 Goals Goal 1:: Decrease R knee pain x 50% to aid with sleep Goal Time Frame: 4-6 Weeks Goal 2:: Increase R knee ROM x 20 degrees to aid with restoring a more normalized gait pattern Goal Time Frame: 4-6 Weeks Goal 3:: I with HEP Goal Time Frame: 4-6 Weeks Goal 4:: Increase R knee strength x 5-10#F to aid with stair negotiation Goal Time Frame: 4-6 Weeks Rehabilitation Potential Physical Therapy Diagnosis: Pt has R knee pain, weakness, and limited ROM secondary to R TKA Rehabilitation Potential: Good Anticipated Interventions Patient/Client Instruction: Educate patient on: Condition and Plan of Care For the Purpose of:: To improve self management Therapeutic Exercise to Include: Strength training, Endurance training, Flexibilty training, Gait and locomotor training, Active ROM, Dynamic Lumbar Stabilization and Inocente Exercises For the Purpose of:: To decrease pain, To increase ROM and To improve muscle performance and motor function Cryotherapy (ice pack, ice massage): Yes For the Purpose of:: To decrease pain Text: Thank you for the opportunity to evaluate your patient. For Medicare and Medicare HMO plans, please review the plan of care and approve it. It will need to be FAXED BACK to us at [phone] for Medicare purposes. For Medicare only, by signing this I certify the plan of care. Please let me know if there are questions or concerns regarding this plan of care. Physician Signature: Date:
--- NOTE | 2024-12-04 12:33 | HP.PTDCSUM ---
Discharge Summary D/C summary: It has been my pleasure to treat KARYN MULLER referred by Dr. Daniel Lim MD, with the diagnosis of R TKA 10/07/24 for a total of 13 visit(s). Discharge Date: Please see the following information for a summary of their discharge status. Subjective Subjective: I feel ready to be done Pain R knee: Pain Intensity (Out of 10): 0 Overall Improvement % Improvement: 90 Objective Objective/Function: R knee pain ranges from 0-4/10 R knee ROM: 0-124 degrees R knee MMT: flex= 24, ext= 34 #F Pt is I with HEP Goals Goal 1:: Decrease R knee pain x 50% to aid with sleep Goal Progress: Goal Met Goal 2:: Increase R knee ROM x 20 degrees to aid with restoring a more normalized gait pattern Goal Progress: Goal Met Goal 3:: I with HEP Goal Progress: Goal Met Goal 4:: Increase R knee strength x 5-10#F to aid with stair negotiation Goal Progress: Goal Met Plan Plan: Discharge to I gym routine D/C Information d/c sentence: If there are questions or concerns regarding this patient's physical therapy, please feel free to call me at [phone]. Thank you for the referral of this patient. Sincerely, Sonu Mast, PT, ATC Balance/Gait/Functional tests Balance/Special Test Scores Lower Extremity Functional Score: 27 WOMAC Total Score: 20 WOMAC Percentage: 79.1700 Improvement % Improvement: 90
== END 2024-12-04 19:00 | disposition home or self-care (01) ==
LOC: PT 12:00
PROVIDERS: PCP Internal Medicine; Referring Provider Orthopaedic Surgery; Visit Provider Orthopaedic Surgery
DX: M17.11 Unilateral primary osteoarthritis, right knee (principal); Z96.651 Presence of right artificial knee joint; Z47.1 Aftercare following joint replacement surgery
CPT/HCPCS: 97110; 97161; 97530

== ENCOUNTER 2025-01-22 09:30 | Outpatient (RCR) | payer MEDICARE, OTHER, SELFPAY ==
[2024-05-01 09:54] VITALS: BMI 28.5
--- NOTE | 2025-01-22 10:01 | HP.PTDCSUM ---
Discharge Summary D/C summary: It has been my pleasure to treat KARYN MULLER referred by Dr. Stacey Robledo MD, with the diagnosis of L hip pain for a total of 7 visit(s). Discharge Date: Please see the following information for a summary of their discharge status. Subjective Subjective: I am ready to be done Pain L hip pain: Pain Intensity (Out of 10): 1 Objective Objective/Function: L hip pain is 1/10 Pt is I with HEP Pt can perform sit to stand transfers without difficulty Goals Goal 1:: Decrease L hip pain x 50% to aid with sleep Goal Progress: Goal Met Goal 2:: Pt will transfer sit to stand without difficulty to aid with mobility Goal Progress: Goal Met Goal 3:: I with HEP Goal Progress: Goal Met Plan Plan: Discharge to [facility] D/C Information d/c sentence: If there are questions or concerns regarding this patient's physical therapy, please feel free to call me at [phone]. Thank you for the referral of this patient. Sincerely, Sonu Mast, PT, ATC Balance/Gait/Functional tests Balance/Special Test Scores Lower Extremity Functional Score: 45
== END 2025-01-22 19:00 | disposition home or self-care (01) ==
LOC: PT 09:30
PROVIDERS: PCP Internal Medicine; Referring Provider Internal Medicine; Visit Provider Internal Medicine
DX: M25.552 Pain in left hip (principal); Z96.651 Presence of right artificial knee joint
CPT/HCPCS: 97110; 97161; 97530

== ENCOUNTER → 2025-03-26 | Outpatient (CLI) | payer MEDICARE, OTHER, SELFPAY ==
[2024-05-01 09:54] VITALS: BMI 28.5
--- NOTE | 2025-03-26 11:03 | ECHOD_ITS ---
Reason For Study Reason For Study: PROSTHETIC HEART VALVE Procedure This was a 2D Doppler, Color Flow transthoracic echocardiogram. Exam performed in department. Left Ventricle Normal LV size. Left ventricular systolic function is normal. The left ventricular ejection fraction is 60 %. No regional wall motion abnormalities noted. Right Ventricle Normal RV size. Normal systolic function. Atria Normal left atrium. Normal right atrium. Mitral Valve Normal mitral valve. Mild (1+) eccentric mitral valve insufficiency. Tricuspid Valve Normal tricuspid valve. Mild (1+) tricuspid valve insufficiency. Pulmonary artery systolic pressure is 36 mmHg. Aortic Valve Peak aortic valve gradient 29 mmHg. Mean aortic valve gradient 17 mmHg. Mild (1+) aortic valve insufficiency. Bioprosthetic aortic valve. Pulmonic Valve Normal pulmonic valve. Great Vessels Normal aortic root. The pulmonary artery is normal size. Inferior vena cava collapse with respiration. Pericardium/Pleural No pericardial effusion. MMode/2D Measurements & Calculations LVIDd: 4.3 cm IVSd: 0.93 cm LVOT diam: 1.9 cm LVIDs: 2.6 cm LVPWd: 0.94 cm LVOT area: 2.9 cm2 RVDd: 3.5 cm FS: 38.2 % Ao root diam: 2.6 cm LAV(MOD-bp): 48.2 ml LVAd ap4: 26.1 cm2 LAV(MOD-bp) Indexed: 26.9 ml/m2 LVLd ap4: 7.9 cm LAV(MOD-sp2): 48.9 ml EDV(MOD-sp4): 69.5 ml LAV(MOD-sp4): 43.1 ml EDV(sp4-el): 73.7 ml LVAs ap4: 13.3 cm2 LVLs ap4: 6.4 cm ESV(MOD-sp4): 23.8 ml ESV(sp4-el): 23.5 ml EF(MOD-sp4): 65.7 % EF(sp4-el): 68.2 % SV(MOD-sp4): 45.7 ml SV(sp4-el): 50.3 ml LA A4 area: 17.8 cm2 SI(MOD-sp4): 25.5 ml/m2 LA dimension(2D): 3.9 cm RA A4 area: 16.8 cm2 TAPSE: 1.9 cm Time Measurements MV dec time: 0.35 sec Doppler Measurements & Calculations MV E max efrain: 106.8 cm/sec Lat Peak E' Efrain: 9.5 cm/sec Med Peak E' Efarin: 6.2 cm/sec MV A max efrain: 119.6 cm/sec E/E' lat: 11.2 E/E' med: 17.3 MV E/A: 0.89 Ao V2 max: 269.9 cm/sec AI max efrain: 439.6 cm/sec LV V1 max: 121.4 cm/sec Ao max P.1 mmHg AI max P.3 mmHg LV V1 max P.9 mmHg Ao V2 mean: 196.6 cm/sec LV V1 mean P.1 mmHg Ao mean P.0 mmHg AI dec slope: 255.8 cm/sec2 LV V1 mean: 84.0 cm/sec Ao V2 VTI: 67.9 cm AI P1/2t: 503.3 msec LV V1 VTI: 29.9 cm AV (velocity ratio): 0.44 SAHCIN(I,D): 1.3 cm2 SACHIN(V,D): 1.3 cm2 SV(LVOT): 88.1 ml PA V2 max: 104.5 cm/sec TR max efrain: 283.5 cm/sec TR max P.1 mmHg ECHO/Echo Complete Interpretation Summary Normal LV size. Left ventricular systolic function is normal. The left ventricular ejection fraction is 60 %. Pulmonary artery systolic pressure is 36 mmHg. Bioprosthetic aortic valve. Mean aortic valve gradient 17 mmHg. Compared to the previous the above is unchanged. Ordering Physician: Yong Mora Referring Physician: SAQIB JUÁREZ Performed By: Cassandra Jordan RDCS
--- OUTSIDE RECORDS SUMMARY | 2025-03-26 18:49 | XMS RPT_ITS | CCD ---
Author Organization [facility] Care Team Providers Care Weld Engineer Name Role Phone Breonna Marrero Unavailable Unavailable Cayla RN, Evelin Ruth Unavailable Unavailable Cayla ALFARO, Evelin Ruth Unavailable Unavailable ALEXANDRE Barone, Stefania Guzman Unavailable Cayla ALFARO, Evelin Ruth Unavailable Unavailable Dr. Stacey Robledo Primary Care Provider Dr. Stacey Robledo Attending Provider [phone] Dr. Stacey Robledo Referring Provider [phone] Dr. Yong Mora Attending Provider [phone] Yong Mora Admit Provider Dr. Yong Mora Referring Provider [phone] Yong Mora Other Provider Dr. Yong Mora Referring Provider Dr. Bill Salas Attending Provider Rex AGRICULTURAL SCIENCES PROFESSOR, AGRICULTURAL SCIENCES PROFESSOR-C Paul Ferguson Attending Provider Dr. Stacey Robledo Primary Care Provider Dr. Stacey Robledo Attending Provider [phone] Dr. Stacey Robledo Referring Provider [phone] Dr. Jairon Banks Attending Provider Dr. Stacey Robledo Primary Care Provider Dr. Yong Mora Attending Provider Dr. Stacey Robledo Referring Provider [phone] Vikash AGRICULTURAL SCIENCES PROFESSOR, AGRICULTURAL SCIENCES PROFESSOR-C Rosibel Attending Provider Dr. Stacey Robledo Primary Care Provider Dr. Stacey Robledo Referring Provider [phone] Dr. Yong Mora Attending Provider Vikash AGRICULTURAL SCIENCES PROFESSOR, AGRICULTURAL SCIENCES PROFESSOR-C Rosibel Referring Provider Dr. Stacey Robledo Primary Care Provider Dr. Stacey Robledo Referring Provider [phone] Dr. Stacey Robledo Attending Provider [phone] Dr. Stacey Robledo Primary Care Provider Dr. Stacey Robledo Referring Provider [phone] Dr. Jairon Banks Attending Provider Suh AGRICULTURAL SCIENCES PROFESSOR, AGRICULTURAL SCIENCES PROFESSOR-C Rosibel Attending Provider [phone] Vikash AGRICULTURAL SCIENCES PROFESSOR, AGRICULTURAL SCIENCES PROFESSOR-C Rosibel Referring Provider [phone] Dr. Stacey Robledo Attending Provider [phone] Rex AGRICULTURAL SCIENCES PROFESSOR, AGRICULTURAL SCIENCES PROFESSOR-C Paul Ferguson Attending Provider Dr. Stacey Robledo Primary Care Provider Dr. Stacey Robledo Referring Provider Rex AGRICULTURAL SCIENCES PROFESSOR, AGRICULTURAL SCIENCES PROFESSOR-C Paul Ferguson Attending Provider Dr. Jairon Banks Attending Provider Dr. Bill Salas Attending Provider Dr. Bill Salas Other Provider Dr. Stacey Robledo Primary Care Provider Dr. Stacey Robledo Attending Provider Dr. Stacey Robledo MD Primary Care Provider Dr. Stacey Robledo MD Attending Provider Dr. Stacey Robledo MD Referring Provider Roof AGRICULTURAL SCIENCES PROFESSOR-C, Paul Ferguson Attending Provider Cedrick ARBOLEDA, Deondre Guzman Attending Provider Carina DOOLEY, Dr. Daniel Guzman Attending Provider Carina DOOLEY, Dr. Daniel Guzman Referring Provider Meena DOOLEY, Dr. Ibarra Primary Care Provider [phone] Meena DOOLEY, Dr. Ibarra Referring Provider Meena DOOLEY, Dr. Ibarra Attending Provider Vikash DU-C, Rosibel Attending Provider Abby DOOLEY, Dr. Beach Attending Provider Meena, Stacey Primary Care Unavailable Borruso, Obed Referring Unavailable Borruso, Obed Attending Unavailable Meena, Stacey Primary Care Unavailable Daniel Lim Referring Unavailable GradiDaniel cadena Attending Unavailable Meena, Stacey Primary Care Unavailable Meena, Stacey Attending Unavailable Meena, Stacey Primary Care Unavailable Meena, Stacey Referring Unavailable Meena, Stacey Attending Unavailable Abby, Yong Attending Unavailable Meena, Stacey Primary Care Unavailable Abby, Yong Referring Unavailable Meena, Stacey Primary Care Unavailable Meena, Stacey Attending Unavailable Meena, Stacey Primary Care Unavailable Meena, Stacey Referring Unavailable Vikash DU, Rosibel Attending Unavailable Abby, Gering Attending Unavailable Meena, Stacey Primary Care Unavailable Meena, Stacey Primary Care Unavailable Meena, Stacey Referring Unavailable Abby, Gering Attending Unavailable Meena, Stacey Primary Care Unavailable Meena, Stacey Referring Unavailable Borruso, Obed Attending Unavailable Meena, Stacey Primary Care Unavailable Meena, Stacey Referring Unavailable Borruso, Obed Attending Unavailable Meena, Stacey Primary Care Unavailable Meena, Stacey Attending Unavailable Meena, Stacey Primary Care Unavailable Meena, Stacey Referring Unavailable Roof AGRICULTURAL SCIENCES PROFESSOR, Paul H Attending Unavailable Meena, Stacey Primary Care Unavailable Meena, Stacey Referring Unavailable Deondre Fish Attending Unavailable Roof AGRICULTURAL SCIENCES PROFESSOR, Paul H Referring Unavailable Roof AGRICULTURAL SCIENCES PROFESSOR, Paul H Attending Unavailable Meena, Stacey Primary Care Unavailable Allergies Allergy Classification Reported Allergen(s) Allergy Type Date of Onset Reaction(s) Facility (5 sources) at[facility]vastatin Drug All[facility]: [phone] (20 sources) meloxicam; Translations: [meloxicam] Drug Allergy 7 Nausea [facility] Work Phone: [phone] (20 sources) methotrexate; Translations: [methotrexate] Drug Allergy 7 [facility]: [phone] (5 sources) NSAIDs drug allergy 7 [facility]: [phone] (5 sources) Sulfonamides (Antibiotic) drug allergy 7 [facility]: [phone] (19 sources) Sulfonamides (Antibiotic); Translations: [Sulfa (Sulfonamide Antibiotics)] Propensity to adverse reactions [address] [facility] (19 sources) NSAIDS (Non-Steroidal Anti-Inflamma; Translations: [NSAIDS (Non-Steroidal Anti-Inflamma] Propensity to adverse reactions [address] [facility] Medications Current Medications Medication Drug Class(es) Dates Sig (Normalized) Sig (Original) 8 hr acetaminophen 650 mg extended release oral tablet (20 sources) Start: 02-22-2022 take 2 tablets by mouth every twelve hours Acetaminophen 650 mg tablet extended release Active 1300 mg PO Q12H February 22, 2022 11:35am Start: 02-22-2022 take 1300 mg by mout h every twelve hours Acetaminophen Active 1300 MG PO Q12H February 22, 2022 11:35am Start: 02-06-2017 End: 02-22-2022 Acetaminophen 650 MG tablet extended release Discontinued 2 {tbl} PO TWICE DAILY NEEDED as needed for arthritis February 06, 2017 12:00am February 22, 2022 11:35am Start: 02-06-2017 End: 02-22-2022 take 2 tablets by mouth twice daily as needed Acetaminophen Discontinued 2 TABLET PO TWICE DAILY NEEDED February 06, 2017 12:00am February 22, 2022 11:35am [id number] 200 actuat albuterol 0.09 mg/actuat metered dose inhaler (20 sources) beta2-Adrenergic Agonist Start: 02-23-2021 End: 05-17-2022 Albuterol Sulfate 90 mcg/actuation HFA aerosol inhaler Active 2 NMA INHALATION Q4H as needed for shortness of breath or wheezing 8.5 May 17, 2022 7:14am administer with spacer Start: 02-23-2021 End: 05-17-2022 take 1 puff(s) by inhalation every four hours Albuterol Sulfate Active 2 PUFF INHALATION Q4H 8.5 May 17, 2022 7:14am administer with spacer Start: 04-29-2017 End: 05-21-2017 VENTOLIN HFA 108 (90 Base) M CG/ACT AERS As needed - 90mcg/inh ALBUTEROL SULFATE [id number] Wil Rivas MD Start: 04-16-2017 End: 10-02-2017 Albuterol Sulfate 1 INHALER inhaler Discontinued 1 - 2 NMA INHALATION EVERY 4 HOURS NEEDED as needed for Dyspnea, wheezing 1 April 16, 2017 12:00am October 02, 2017 8:16pm Start: 04-16-2017 End: 10-02-2017 take 1 puff(s) by inhalation every four hours as needed Albuterol Sulfate Discontinued 1 - 2 PUFF INHALATION EVERY 4 HOURS NEEDED 1 April 16, 2017 12:00am October 02, 2017 8:16pm ascorbic acid 1000 mg oral tablet (20 sources) Start: 12-30-2024 take 1 g by mouth once daily Ascorbic Acid (Vitamin C) 1,000 mg tablet Active 1 g PO daily December 30, 2024 9:39am Start: 02-10-2021 End: 12-30-2024 take 1 g by mouth twice daily Ascorbic Acid (Vitamin C ) 1,000 mg tablet Discontinued 1 g PO TWICE A DAY February 10, 2021 12:00am December 30, 2024 9:40am Start: 02-10-2021 take 1 g by mouth twice daily Ascorbic Acid (Vitamin C) Active 1 GM PO TWICE A DAY February 10, 2021 12:00am Start: 09-14-2019 End: 02-10-2021 take 1 tablet by mouth once daily Ascorbic Acid (Vitamin C) 500 mg tablet Discontinued 500 mg PO DAILY September 14, 2019 1:00am February 10, 2021 11:07am Start: 05-02-2017 End: 09-14-2019 take 2 tablets by mouth once daily Ascorbic Acid (Vitamin C) 1,000 MG tablet Discontinued 2000 mg PO DAILY May 02, 2017 12:00am September 14, 2019 2:17pm Start: 05-02-2017 End: 09-14-2019 take 2000 mg by mouth once daily Ascorbic Acid (Vitamin C) Discontinued 2000 MG PO DAILY May 02, 2017 12:00am September 14, 2019 2:17pm Start: 04-30-2017 take 1 tablet by sage twice daily VITAMIN C 1000 MG TABS One tablet by mouth twice daily ASCORBIC ACID [id number] Breonna Marrero Start: 04-30-2017 take 3 tablets by mo [facility] twice daily VITAMIN C 1000 MG TABS Three tablets by mouth twice a day ASCORBIC ACID [id number] Stefania Little RN aspirin 81 mg delayed release oral tablet (20 sources) Nonsteroidal Anti-inflammatory Drug Start: 10-02-2017 Aspirin (Adult Lo w Dose Aspirin) 81 mg tablet,delayed release (DR/EC) Active 81 mg PO daily October 02, 2017 1:00am Start: 05-07-2017 take 1 tablet by sage once daily ASPIRIN EC 81 MG TBEC One tablet by mouth daily ASPIRIN [id number] Breonna Marrero Start: 04-29-2017 End: 04-30-2017 take 1 tablet by mouth once daily ASPIRIN EC 81 MG TBEC One tablet by mouth daily ASPIRIN [id number] Stefania Little RN calcium carbonate 600 mg / cholecalciferol 0.01 mg oral tablet (18 sources) Vitamin D Start: 10-02-2017 Calcium Carbon ate-Vit D3-Min 600 mg calcium- 400 unit tablet Active 1 {tbl} PO daily October 02, 2017 1:00am [place] 4-Ved-All-Fish Oil (18 sources) Start: 02-22-2022 take 300-1000 mg by mouth once daily [place] 7-Bvm-Vbd-Fish Oil (Fish Oil) 300-1,000 mg capsule Active 1 CAP PO DAILY February 22, 2022 11:34am Start: 02-22-2022 End: 03-12-2023 [place] 4-Bfv-Lpw-Fish Oil (Fi sh Oil) 300-1,000 mg capsule Discontinued 1 NMA PO DAILY February 22, 2022 12:00am March 12, 2023 10:45am Start: 02-22-2022 End: 03-12-2023 take 300-1000 mg by mouth once daily [place] 4-Xoc-Yoi-Fish Oil (Fish Oil) 300-1,000 mg capsule Discontinued 1 CAP PO DAILY February 22, 2022 12:00am March 12, 2023 10:45am Start: 02-22-2022 take 300-1000 mg by mouth once daily [place] 3-Byr-Cfh-Fish Oil (Fish Oil) 300-1,000 mg capsule Active 1 CAP PO DAILY February 21, 2022 11:00pm Start: 02-22-2022 take 300-1000 mg by mouth once daily [place] 7-Odb-Wek-Fish Oil (Fish Oil) 300-1,000 mg capsule Active 1 CAP PO DAILY February 22, 2022 12:00am ferrous sulfate 325 mg oral tablet (8 sources) Start: 08-31-2024 take 1 tablet by mouth once daily Ferrous Sulfate 325 mg (65 mg iron) tablet Active 325 mg PO daily August 31, 2024 1:00am Start: 03-17-2024 End: 08-17-2024 take 1 tablet by mouth once daily Ferrous Sulfate 325 mg (65 mg iron) tablet Discontinued 325 mg PO DAILY March 17, 2024 12:00am August 17, 2024 2:54pm Fluticasone Furoate-Vilanterol (20 sources) Corticosteroid, beta2-Adrenergic Agonist Start: 03-16-2025 Fluticasone Furoate-Vilanterol (Breo Ellipta) 200-25 mcg/dose blister with device Active 1 NMA INHALATION DAILY March 16, 2025 3:33pm Start: 02-02-2025 End: 03-16-2025 Fluticasone Furoate-Vilanter ol (Breo Ellipta) 200-25 mcg/dose blister with device Discontinued 1 NMA INHALATION DAILY February 02, 2025 2:29pm March 16, 2025 3:33pm Start: 01-22-2024 End: 02-02-2025 Fluticasone Furoate-Vilanter ol (Breo Ellipta) 200-25 mcg/dose blister with device Discontinued 1 NMA INHALATION DAILY January 22, 2024 9:29am February 02, 2025 2:30pm Start: 01-22-2024 Fluticasone Fu roate-Vilanterol (Breo Ellipta) 200-25 mcg/dose blister with device Active 1 NMA INHALATION DAILY January 22, 2024 9:29am Start: 01-22-2024 Fluticasone Fu roate-Vilanterol (Breo Ellipta) 200-25 mcg/dose blister with device Active 1 INH INHALATION DAILY January 22, 2024 9:29am Start: 01-21-2024 End: 01-22-2024 Fluticasone Furoate-Vilanter ol (Breo Ellipta) 200-25 mcg/dose blister with device Discontinued 1 NMA INHALATION DAILY January 21, 2024 1:36pm January 22, 2024 9:30am Start: 01-21-2024 End: 01-22-2024 Fluticasone Furoate-Vilanter ol (Breo Ellipta) 200-25 mcg/dose blister with device Discontinued 1 INH INHALATION DAILY January 21, 2024 1:36pm January 22, 2024 9:30am Start: 06-26-2023 End: 01-21-2024 Fluticasone Furoate-Vilanter ol (Breo Ellipta) 200-25 mcg/dose blister with device Discontinued 1 NMA INHALATION DAILY June 26, 2023 10:21am January 21, 2024 1:36pm Start: 06-26-2023 End: 01-21-2024 Fluticasone Furoate-Vilanter ol (Breo Ellipta) 200-25 mcg/dose blister with device Discontinued 1 INH INHALATION DAILY June 26, 2023 10:21am January 21, 2024 1:36pm Start: 05-17-2022 End: 06-26-2023 Fluticasone Furoate-Vilanter ol (Breo Ellipta) 200-25 mcg/dose blister with device Discontinued 1 NMA INHALATION DAILY May 17, 2022 7:14am June 26, 2023 10:22am Start: 05-17-2022 End: 06-26-2023 Fluticasone Furoate-Vilanter ol (Breo Ellipta) 200-25 mcg/dose blister with device Discontinued 1 INH INHALATION DAILY May 17, 2022 7:14am June 26, 2023 10:22am Start: 05-17-2022 Fluticasone Fu roate-Vilanterol (Breo Ellipta) 200-25 mcg/dose blister with device Active 1 INH INHALATION DAILY May 17, 2022 6:14am Start: 05-17-2022 Fluticasone Fu roate-Vilanterol (Breo Ellipta) 200-25 mcg/dose blister with device Active 1 INH INHALATION DAILY May 17, 2022 7:14am Start: 06-30-2021 End: 05-17-2022 Fluticasone Furoate-Vilanter ol (Breo Ellipta) 200-25 mcg/dose blister with device Discontinued 1 NMA INHALATION DAILY June 30, 2021 9:45am May 17, 2022 7:14am Start: 06-30-2021 End: 05-17-2022 Fluticasone Furoate-Vilanter ol (Breo Ellipta) 200-25 mcg/dose blister with device Discontinued 1 INH INHALATION DAILY June 30, 2021 8:45am May 17, 2022 6:14am Start: 06-30-2021 End: 05-17-2022 Fluticasone Furoate-Vilanter ol (Breo Ellipta) 200-25 mcg/dose blister with device Discontinued 1 INH INHALATION DAILY June 30, 2021 9:45am May 17, 2022 7:14am Start: 06-30-2021 Fluticasone Fu roate-Vilanterol (Breo Ellipta) 200-25 mcg/dose blister with device Active 1 INH INHALATION DAILY June 30, 2021 9:45am Start: 05-18-2021 End: 06-30-2021 Fluticasone Furoate-Vilanter ol (Breo Ellipta) 200-25 mcg/dose blister with device Discontinued 1 NMA INHALATION DAILY May 18, 2021 7:39am June 30, 2021 9:46am Start: 05-18-2021 End: 06-30-2021 Fluticasone Furoate-Vilanter ol (Breo Ellipta) 200-25 mcg/dose blister with device Discontinued 1 INH INHALATION DAILY May 18, 2021 6:39am June 30, 2021 8:46am Start: 05-18-2021 End: 06-30-2021 Fluticasone Furoate-Vilanter ol (Breo Ellipta) 200-25 mcg/dose blister with device Discontinued 1 INH INHALATION DAILY 3 May 18, 2021 7:39am June 30, 2021 9:46am Start: 03-31-2021 End: 05-18-2021 Fluticasone Furoate-Vilanter ol (Breo Ellipta) 200-25 mcg/dose blister with device Discontinued 1 NMA INHALATION DAILY March 31, 2021 11:32am May 18, 2021 7:39am Start: 03-31-2021 End: 05-18-2021 Fluticasone Furoate-Vilanter ol (Breo Ellipta) 200-25 mcg/dose blister with device Discontinued 1 INH INHALATION DAILY March 31, 2021 10:32am May 18, 2021 6:39am Start: 03-31-2021 End: 05-18-2021 Fluticasone Furoate-Vilanter ol (Breo Ellipta) 200-25 mcg/dose blister with device Discontinued 1 INH INHALATION DAILY 3 March 31, 2021 11:32am May 18, 2021 7:39am Start: 02-23-2021 End: 03-31-2021 Fluticasone Furoate-Vilanter ol (Breo Ellipta) 200-25 mcg/dose blister with device Discontinued 1 INH INHALATION DAILY 60 February 23, 2021 10:38am March 31, 2021 11:34am Start: 02-23-2021 End: 03-31-2021 Fluticasone Furoate-Vilanter ol (Breo Ellipta) 200-25 mcg/dose blister with device Discontinued 1 NMA INHALATION DAILY 60 February 23, 2021 12:00am March 31, 2021 11:34am Start: 02-23-2021 End: 03-31-2021 Fluticasone Furoate-Vilanter ol (Breo Ellipta) 200-25 mcg/dose blister with device Discontinued 1 INH INHALATION DAILY 60 February 22, 2021 11:00pm March 31, 2021 10:34am Start: 02-23-2021 End: 03-31-2021 Fluticasone Furoate-Vilanter ol (Breo Ellipta) 200-25 mcg/dose blister with device Discontinued 1 INH INHALATION DAILY 60 February 23, 2021 12:00am March 31, 2021 11:34am hydroCHLOROthiazide 12.5 mg / losartan potassium 50 mg oral tablet (20 sources) Thiazide Diuretic, Angiotensin 2 Receptor Sherif Start: 07-26-2022 End: 03-23-2025 Losartan-Hydrochlorothiazide 50-12.5 mg tablet Active 1 {tbl} PO TWICE A DAY 180 March 23, 2025 2:42pm Start: 07-26-2022 End: 11-18-2023 take 1 tablet by mouth twice daily Losartan-Hydrochlorothiazide Discontinue d 1 TABLET PO TWICE A DAY 180 July 25, 2023 8:53am November 18, 2023 11:35am Start: 07-23-2022 End: 07-26-2022 Losartan-Hydrochlorothiazide 50-12.5 mg tablet Discontinued 1 {tbl} PO DAILY 90 July 23, 2022 12:00am July 26, 2022 10:57am Start: 07-23-2022 End: 07-26-2022 take 1 tablet by mouth once daily Losartan-Hydrochlorothiazide Discontinue d 1 TABLET PO DAILY July 23, 2022 12:00am July 26, 2022 10:57am Start: 10-07-2020 End: 07-23-2022 Losartan-Hydrochlorothiazide 50-12.5 mg tablet Discontinued 1 {tbl} PO TWICE A DAY 180 July 12, 2022 9:31am July 23, 2022 10:12am Start: 10-07-2020 End: 07-23-2022 take 1 tablet by mouth twice daily Losartan-Hydrochlorothiazide Discontinue d 1 TABLET PO TWICE A DAY 180 July 12, 2022 9:31am July 23, 2022 10:12am Start: 04-29-2020 End: 10-07-2020 Losartan-Hydrochlorothiazide 50-12.5 mg tablet Discontinued 1 {tbl} PO DAILY April 29, 2020 12:00am October 07, 2020 11:02am Start: 04-29-2020 End: 10-07-2020 take 1 tablet by mouth once daily Losartan-Hydrochlorothiazide Discontinue d 1 TABLET PO DAILY April 29, 2020 12:00am October 07, 2020 11:02am linseed oil 1000 mg oral capsule (20 sources) Start: 03-12-2023 take 1 capsule by mouth once daily Flaxseed Oil 1,000 mg capsule Active 1000 mg PO DAILY March 12, 2023 12:00am administer with a meal Start: 02-06-2017 End: 02-22-2022 take 1 capsule by mouth once daily Flaxseed Oil 1,000 MG capsule Discontinued 1000 mg PO DAILY February 06, 2017 12:00am February 22, 2022 11:33am Multivitamin preparation (20 sources) Start: 02-02-2019 take 1 tablet by mouth once daily Multivitamin Active 1 TABLET PO DAILY February 02, 2019 11:13am Start: 02-02-2019 take 1 tablet by sage th once daily Multivitamin Active 1 TABLET PO DAILY February 01, 2019 11:00pm Start: 02-02-2019 take 1 tablet by sage th once daily Multivitamin Active 1 TABLET PO DAILY February 02, 2019 12:00am Start: 05-02-2017 End: 10-02-2017 Multivitamin Discontinued 1 EACH PO DAILY May 02, 2017 3:52pm October 02, 2017 8:15pm Start: 05-02-2017 End: 10-02-2017 Multivitamin Discontinued 1 EACH PO DAILY May 01, 2017 11:00pm October 02, 2017 7:15pm Start: 05-02-2017 End: 10-02-2017 Multivitamin Discontinued 1 EACH PO DAILY May 02, 2017 12:00am October 02, 2017 8:15pm Multivitamin tablet (4 sources) Start: 02-02-2019 Multivitamin t ablet Active 1 {tbl} PO DAILY February 02, 2019 12:00am vitamin b12 1 mg oral tablet (20 sources) Vitamin B12 Start: 02-06-2017 take 1 tablet by mouth once daily Cyanocobalamin (Vitamin B-12) 1,000 MCG tablet Active 1000 ug PO DAILY February 06, 2017 12:00am Completed/Discontinued Medications Medication Drug Class(es) Dates Sig (Normalized) Sig (Original) amLODIPine 2.5 mg oral tablet (20 sources) Dihydropyridine Calcium Channel Sherif Start: 03-17-2024 End: 08-31-2024 take 1 tablet by mouth once daily Amlodipine 2.5 mg tablet Discontinued 2.5 mg PO DAILY March 17, 2024 11:54am August 31, 2024 12:18pm On Hold: None Start: 02-06-2024 End: 03-17-2024 take 1.25 mg by mouth once daily Amlodipine 2.5 mg tablet Discontinued 1.25 mg PO DAILY February 06, 2024 10:03am March 17, 2024 11:54am Start: 02-06-2024 take 1.25 mg by mout h once daily Amlodipine Active 1.25 MG PO DAILY February 06, 2024 10:03am Start: 01-30-2024 End: 02-06-2024 take 1 tablet by mouth once daily Amlodipine 2.5 mg tablet Discontinued 2.5 mg PO DAILY January 30, 2024 12:00am February 06, 2024 10:04am Start: 09-02-2023 End: 01-30-2024 take 1 tablet by mouth once daily Amlodipine 5 mg tablet Discontinued 5 mg PO DAILY September 02, 2023 1:00am January 30, 2024 3:29pm amoxicillin 500 mg oral tablet (5 sources) Penicillin-class Antibacterial Start: 05-21-2017 take 4 tablets by mouth every hour AMOXICILLIN 500 MG TABS 4 tablets by mouth 1 hr prior to procedure AMOXICILLIN [id number] Wil Rivas MD amoxicillin 500 mg / clavulanate 125 mg oral tablet (10 sources) Penicillin-class Antibacterial Start: 04-30-2017 End: 05-07-2017 take 1 tablet by mouth twice daily AUGMENTIN 500-125 MG TABS One tablet by mouth twice daily AMOXICILLIN-POT CLAVULANATE [id number] Sidra Madrid RN atorvastatin 40 mg oral tablet (20 sources) HMG-CoA Reductase Inhibitor Start: 05-02-2017 End: 10-02-2017 take 2 tablets by mouth at bedtime Atorvastatin 40 MG tablet Discontinued 80 mg PO AT BEDTIME May 02, 2017 4:06pm October 02, 2017 8:08pm Start: 05-02-2017 End: 10-02-2017 take 80 mg by mouth at bedtime Atorvastatin Discontinu ed 80 MG PO AT BEDTIME May 02, 2017 4:06pm October 02, 2017 8:08pm Start: 04-29-2017 End: 05-07-2017 take 1 tablet by mouth once daily ATORVASTATIN CALCIUM 80 MG TABS One tablet by mouth daily ATORVASTATIN CALCIUM [id number] Breonna Marrero Start: 04-16-2017 End: 05-02-2017 take 1 tablet by mouth at bedtime Atorvastatin 40 MG tablet Discontinued 40 mg PO AT BEDTIME April 16, 2017 12:00am May 02, 2017 4:06pm azithromycin 500 mg oral tablet (20 sources) Macrolide Antimicrobial Start: 10-07-2020 End: 10-08-2020 take 1 tablet by mouth once Azithromycin 500 mg tablet Discontinued 500 mg PO ONCE 1 October 07, 2020 1:00am October 07, 2020 1:00am October 08, 2020 1:03am Day 1 Start: 10-07-2020 End: 10-16-2020 take 1 tablet by mouth once daily Azithromycin 250 mg tablet Discontinued 250 mg PO DAILY 06 08October 07, 2020 1:00am October 15, 2020 1:00am October 16, 2020 1:03am Day 2-10 Start: 04-29-2020 End: 05-04-2020 take 1 tablet by mouth once daily Azithromycin (Zithromax Z-Codey) 250 mg tablet Discontinued 250 mg PO DAILY 02 01April 29, 2020 12:00am May 03, 2020 12:00am May 04, 2020 12:02am benzonatate 100 mg oral capsule (20 sources) Non-narcotic Antitussive Start: 05-07-2017 End: 08-26-2017 BENZONATATE 100 MG CAPS as needed BENZONATATE [id number] Breonna Marrero Start: 05-04-2017 End: 10-02-2017 take 2 capsules by mouth four times daily as needed for cough Benzonatate 100 MG capsule Discontinued 200 mg PO 4 TIMES DAILY NEEDED as needed for Cough May 04, 2017 12:00am October 02, 2017 8:16pm Start: 05-04-2017 End: 10-02-2017 take 200 mg by mouth four times daily as needed Benzonatate Discontinued 200 MG PO 4 TIMES DAILY NEEDED May 04, 2017 12:00am October 02, 2017 8:16pm calcium carbonate (20 sources) Start: 04-29-2017 take 1 tablet by mouth once daily CALCIUM CARBONATE TABS One tablet by mouth daily CALCIUM CARBONATE TABS [id number] Evelin Kulkarni RN Start: 04-29-2017 End: 05-07-2017 take 1 tablet by mouth once daily CALCIUM CARBONATE TABS One tablet by mouth daily CALCIUM CARBONATE TABS [id number] Breonna Marrero Start: 02-06-2017 End: 10-02-2017 take 1 tablet by mouth once daily Calcium Carbonate 300 MG tablet,chewable Discontinued 300 mg PO DAILY February 06, 2017 12:00am October 02, 2017 8:14pm calcium carbonate / vitamin D (5 sources) Start: 05-07-2017 take 1 tablet by mouth every twenty-four hours CALCIUM + D 600-200 MG-UNIT TABS One tablet by mouth daily CALCIUM CARBONATE-VITAMIN D Breonna Marrero cholecalciferol 0.125 mg oral tablet (20 sources) Vitamin D Start: 02-10-2021 End: 03-16-2022 take 1 tablet by mouth once daily Cholecalciferol (Vitamin D3) 125 mcg (5,000 unit) tablet Discontinued 125 ug PO DAILY February 10, 2021 12:00am March 16, 2022 10:10am Start: 04-29-2017 End: 05-07-2017 take 1 tablet by mouth once daily VITAMIN D3 400 UNIT TABS One tablet by mouth daily CHOLECALCIFEROL [id number] Evelin Kulkarni RN ciprofloxacin 500 mg oral tablet (18 sources) Quinolone Antimicrobial Start: 07-26-2021 End: 07-31-2021 take 1 tablet by mouth twice daily Ciprofloxacin Hcl 500 mg tablet Discontinued 500 mg PO TWICE A DAY 10 July 26, 2021 12:00am July 30, 2021 12:00am July 31, 2021 12:01am clopidogrel 75 mg oral tablet (20 sources) [id number] Platelet Inhibitor Start: 04-30-2017 End: 10-02-2017 take 1 tablet by mouth once daily Clopidogrel 75 MG tablet Discontinued 75 mg PO DAILY May 02, 2017 12:00am October 02, 2017 8:16pm docusate sodium 100 mg oral capsule (20 sources) Start: 05-02-2017 End: 10-02-2017 take 1 capsule by mouth once daily Docusate Sodium 100 MG capsule Discontinued 100 mg PO DAILY May 02, 2017 12:00am October 02, 2017 8:15pm Start: 04-30-2017 End: 08-26-2017 take 1 tablet by mouth once daily DOCUSATE SODIUM 100 MG TABS One tablet by mouth daily DOCUSATE SODIUM [id number] Wil Rivas MD esomeprazole 20 mg delayed release oral capsule (9 sources) Proton Pump Inhibitor Start: 07-26-2022 End: 09-13-2022 take 1 capsule by mouth once daily Esomeprazole Magnesium 20 mg capsule,delayed release(DR/EC) Discontinued 20 mg PO DAILY July 26, 2022 12:00am September 13, 2022 9:40am ferrous gluconate 324 mg oral tablet (20 sources) Start: 04-16-2017 End: 10-03-2017 take 1 tablet by mouth twice daily at mealtime Ferrous Gluconate 325 MG tablet Discontinued 325 mg PO TWICE DAILY WITH MEALS May 02, 2017 6:17pm October 03, 2017 3:52pm flaxseed extract (5 sources) Non-Standardiz ed Food Allergenic Extract, Non-Standardiz ed Plant Allergenic Extract Start: 04-29-2017 take 1 tablet by mouth once daily FLAX SEED OIL CAPS One tablet by mouth daily FLAXSEED (LINSEED) CAPS [id number] Evelin Kulkarni RN Fluad Quad [id number](65yr up)(PF) 60 mcg (15 mcg x 4)/0.5mL IM syringe (flu vac (2 sources) Start: 06-30-2021 End: 06-30-2021 Fluad Quad (65yr up)(PF) 60 mcg (15 mcg x 4)/0.5mL IM syringe (flu vac Discontinued 60 MCG IM ONCE 0.5 June 30, 2021 9:19am June 30, 2021 9:43am guaiFENesin 20 mg/ml oral solution (10 sources) Start: 05-07-2017 End: 05-21-2017 ROBITUSSIN CHEST CONGESTION 100 MG/5ML SYRP As needed GUAIFENESIN [id number] Wil Rivas MD hydroCHLOROthiazide 12.5 mg oral tablet (20 sources) Thiazide Diuretic Start: 04-29-2020 End: 04-29-2020 take 2 tablets by mouth once daily Hydrochlorothiazide 12.5 mg tablet Discontinued 25 mg PO daily April 29, 2020 2:00pm April 29, 2020 2:32pm Start: 04-29-2020 End: 04-29-2020 take 25 mg by mouth once daily Hydrochlorothiazide Discontinued 25 MG PO daily April 29, 2020 2:00pm April 29, 2020 2:32pm Start: 10-02-2017 End: 04-29-2020 take 1 tablet by mouth once daily Hydrochlorothiazide 12.5 mg tablet Discontinued 12.5 mg PO daily October 07, 2017 3:00pm April 29, 2020 2:00pm Start: 08-20-2017 take 1 tablet by sage th once daily HYDROCHLOROTHIAZIDE 12.5 MG TABS One tablet by mouth daily HYDROCHLOROTHIAZIDE [id number] Wil Rivas MD hydroCHLOROthiazide 12.5 mg / lisinopril 20 mg oral tablet (20 sources) Thiazide Diuretic, Angiotensin Converting Enzyme Inhibitor Start: 05-02-2017 End: 10-02-2017 Lisinopril-Hydrochlorothiazi de Discontinued 1 EACH PO DAILY May 02, 2017 12:00am October 02, 2017 8:16pm Start: 04-30-2017 End: 10-02-2017 Lisinopril-Hydrochlorothiazi de 1 EACH tablet Discontinued 1 NMA PO DAILY May 02, 2017 12:00am October 02, 2017 8:16pm Start: 04-29-2017 End: 04-30-2017 take 1 tablet by mouth once daily LISINOPRIL-HYDROCHLOROTHIAZIDE 10-12.5 M G TABS One tablet by mouth daily LISINOPRIL-HYDROCHLOROTHIAZIDE [id number] Evelin Kulkarni RN levoFLOXacin 750 mg oral tablet (20 sources) Quinolone Antimicrobial Start: 05-04-2017 End: 10-02-2017 take 1 tablet by mouth once daily Levofloxacin 750 MG tablet Discontinued 750 mg PO DAILY May 04, 2017 12:00am October 02, 2017 8:16pm start 05/05/17 lidocaine 0.05 mg/mg medicated patch (10 sources) Antiarrhythmic, Amide Local Anesthetic Start: 04-29-2017 End: 04-30-2017 LIDODERM 5 % PTCH remove & reapply daily LIDOCAINE [id number] Stefania Little RN losartan potassium 50 mg oral tablet (20 sources) Angiotensin 2 Receptor Sherif Start: 10-02-2017 End: 04-29-2020 take 1 tablet by mouth once daily Losartan 50 mg tablet Discontinued 50 mg PO daily December 29, 2019 5:17pm April 29, 2020 2:00pm Start: 08-05-2017 take 1 tablet by sage th once daily LOSARTAN POTASSIUM 25 MG TABS One tablet by mouth daily LOSARTAN POTASSIUM [id number] Wil Rivas MD Start: 08-05-2017 take 1 tablet by sage th once daily LOSARTAN POTASSIUM 50 MG TABS One tablet by mouth daily LOSARTAN POTASSIUM [id number] Stefania Barone PA-C magnesium oxide 400 mg oral tablet (20 sources) Start: 10-02-2017 End: 10-03-2017 take 1 tablet by mouth twice daily Magnesium Oxide 400 mg tablet Discontinued 400 mg PO TWICE A DAY October 02, 2017 1:00am October 03, 2017 3:52pm Start: 04-30-2017 take 1 tablet by sage twice daily MAGNESIUM OXIDE 400 MG TABS One tablet by mouth twice daily MAGNESIUM OXIDE [id number] Stefania Little RN melatonin 10 mg oral capsule (18 sources) Start: 02-02-2019 End: 03-12-2023 take 1 capsule by mouth at bedtime as needed for sleep Melatonin 10 mg capsule Discontinued 10 mg PO BEDTIME as needed for Sleep February 02, 2019 12:00am March 12, 2023 10:45am 24 hr metoprolol succinate 50 mg extended release oral tablet (20 sources) beta-Adrenergic Sherif Start: 05-03-2023 End: 02-23-2025 take 1 tablet by mouth every twenty-four hours at bedtime Metoprolol Succinate 50 mg tablet extended release 24 hr Discontinued 50 mg PO AT BEDTIME January 12, 2025 2:02pm February 23, 2025 3:34pm Start: 04-30-2017 End: 11-01-2023 take 1 tablet by mouth once daily Metoprolol Succinate 50 mg tablet extended release 24 hr Discontinued 50 mg PO DAILY October 12, 2022 10:36am May 03, 2023 3:40pm MULTIPLE VITAMINS-MINERALS (10 sources) Start: 04-30-2017 End: 05-07-2017 take 1 tablet by mouth once daily MULTIVITAMIN ADULT TABS One tablet by mouth daily MULTIPLE VITAMINS-MINERALS [id number] Breonna Marrero Start: 04-30-2017 take 1 tablet by sage th once daily MULTIVITAMIN ADULT TABS One tablet by mouth daily MULTIPLE VITAMINS-MINERALS [id number] Stefania Little RN Multivitamin 1 EACH tablet (4 sources) Start: 05-02-2017 End: 10-02-2017 Multivitamin 1 EACH tablet Discontinued 1 NMA PO DAILY May 02, 2017 12:00am October 02, 2017 8:15pm nitrofurantoin, macrocrystals 25 mg / nitrofurantoin, monohydrate 75 mg oral capsule (4 sources) Nitrofuran Antibacterial Start: 12-01-2024 End: 12-06-2024 take 1 capsule by mouth every twelve hours at mealtime Nitrofurantoin Monohyd/M-Cryst (Macrobid) 100 mg capsule Discontinued 100 mg PO Q12H 10 December 01, 2024 1:00am December 05, 2024 1:00am December 06, 2024 1:14am must administer with a meal/food omeprazole 40 mg delayed release oral capsule (18 sources) Proton Pump Inhibitor Start: 02-10-2021 End: 03-15-2021 take 1 capsule by mouth once daily Omeprazole 40 mg capsule,delayed release(DR/EC) Discontinued 40 mg PO DAILY February 10, 2021 12:00am March 15, 2021 4:19pm oxyCODONE hydrochloride 5 mg oral tablet (20 sources) Opioid Agonist Start: 04-12-2017 End: 10-02-2017 take 5-10 mg by mouth every six hours as needed for pain Oxycodone 5 MG tablet Discontinued 5 - 10 mg PO EVERY 6 HOURS NEEDED as needed for Pain May 04, 2017 12:00am October 02, 2017 8:16pm pravastatin sodium 40 mg oral tablet (20 sources) HMG-CoA Reductase Inhibitor Start: 10-02-2017 End: 11-05-2024 Pravastatin 40 mg tablet Discontinued 0 .ROUTE .COMPLEX 90 November 18, 2023 11:35am November 05, 2024 5:05pm TAKE 1 TABLET every evening at bedtime. Start: 08-26-2017 take 1 tablet by sage th at bedtime PRAVASTATIN SODIUM 40 MG TABS One tablet by mouth at bedtime. PRAVASTATIN SODIUM [id number] Wil Rivas MD temazepam 7.5 mg oral capsule (20 sources) Benzodiazepine Start: 04-26-2021 End: 03-12-2023 take 1 capsule by mouth at bedtime as needed for sleep Temazepam 7.5 mg capsule Discontinued 7.5 mg PO AT BEDTIME as needed for sleep August 29, 2022 8:52am March 12, 2023 10:45am Start: 03-15-2021 End: 04-26-2021 take 1 capsule by mouth at bedtime as needed for sleep Temazepam 15 mg capsule Discontinued 15 mg PO AT BEDTIME as needed for sleep March 31, 2021 12:00am April 26, 2021 11:13am ticagrelor 90 mg oral tablet (20 sources) Start: 03-03-2022 End: 09-02-2023 take 1 tablet by mouth twice daily Ticagrelor (Brilinta) 90 mg tablet Discontinued 90 mg PO TWICE A DAY May 24, 2023 4:45pm September 02, 2023 5:29pm traMADol hydrochloride 50 mg oral tablet (20 sources) Opioid Agonist Start: 04-29-2017 End: 08-26-2017 ULTRAM 50 MG TABS 1 tablet every 4 hours. TRAMADOL HCL [id number] Wil Rivas MD Start: 04-12-2017 End: 10-02-2017 take 1 tablet by mouth every six hours as needed for pain Tramadol 50 MG tablet Discontinued 50 mg PO EVERY 6 HOURS NEEDED as needed for Pain April 12, 2017 12:00am October 02, 2017 8:16pm traZODone hydrochloride 100 mg oral tablet (20 sources) Serotonin Reuptake Inhibitor Start: 05-03-2023 End: 01-20-2024 Trazodone Discontinued 50 MG PO AT BEDTIME 60 May 13, 2023 12:26pm July 29, 2023 10:51am Take one half to one tablet one hour before sleep. Start: 09-13-2022 End: 06-15-2024 Trazodone 100 mg tablet Disc ontinued 50 mg PO AT BEDTIME as needed for insomnia January 20, 2024 10:37am June 15, 2024 3:07pm Take one half to one tablet one hour before sleep. triamcinolone acetonide 1 mg/ml topical cream (20 sources) Corticosteroid Start: 05-02-2017 End: 10-02-2017 Triamcinolone Acetonide 1 APPLIC cream Discontinued 1 NMA TP DAILY as needed for Itching May 02, 2017 12:00am October 02, 2017 8:16pm Start: 04-30-2017 End: 05-07-2017 TRIAMCINOLONE ACETONIDE 0.1 % OINT Apply as directed TRIAMCINOLONE ACETONIDE [id number] Stefania Little RN B COMPLEX VITAMINS (10 sources) Start: 04-30-2017 End: 05-07-2017 take 1 tablet by mouth once daily VITAMIN B COMPLEX TABS One tablet by mouth daily B COMPLEX VITAMINS [id number] Breonna Marrero Start: 04-30-2017 take 1 tablet by saeg th once daily VITAMIN B COMPLEX TABS One tablet by mouth daily B COMPLEX VITAMINS [id number] Stefania Little RN Vitamin B Complex (B Complex 1) tablet (18 sources) Start: 02-02-2019 End: 02-10-2021 take 1 tablet by mouth once daily Vitamin B Complex (B Complex 1) tablet Discontinued 1 TABLET PO DAILY February 02, 2019 11:13am February 10, 2021 11:09am Start: 02-02-2019 End: 02-10-2021 Vitamin B Complex (B Complex 1) tablet Discontinued 1 {tbl} PO DAILY February 02, 2019 12:00am February 10, 2021 11:09am Start: 02-02-2019 End: 02-10-2021 take 1 tablet by mouth once daily Vitamin B Complex (B Complex 1) tablet Discontinued 1 TABLET PO DAILY February 01, 2019 11:00pm February 10, 2021 10:09am Start: 02-02-2019 End: 02-10-2021 take 1 tablet by mouth once daily Vitamin B Complex (B Complex 1) tablet Discontinued 1 TABLET PO DAILY February 02, 2019 12:00am February 10, 2021 11:09am zinc sulfate 220 mg oral capsule (18 sources) Start: 02-10-2021 End: 02-19-2022 take 1 capsule by mouth once daily Zinc Sulfate 50 mg zinc (220 mg) capsule Discontinued 50 mg PO DAILY February 10, 2021 12:00am February 19, 2022 3:10pm Problems Active Problems Problem Classification Problem Date Documented Date Episodic/Chronic Administrative/social admission (20 sources) Bereavement; Translations: [Disappearance and of family member] 02-22-2022 Episodic Asthma (20 sources) Asthma; Translations: [Unspecified asthma, uncomplicated] Chronic Comment on above: Breo Cardiac dysrhythmias (8 sources) Palpitations; Translations: [Palpitations] 03-12-2023 Episodic Coronary atherosclerosis and other heart disease (20 sources) Coronary atherosclerosis; Translations: [Atherosclerotic heart disease of [place] coronary artery with unspecified angina pectoris] Chronic Comment on above: [id number] LAD at D2 bifurcation w/ 3.5 x 18 mm Shnergle Stent and POBA-D2 03/02/22; Disorders of lipid metabolism (20 sources) Hyperlipidemia; Translations: [Hyperlipidemia, unspecified] Onset: 04-29-2017 04-29-2017 Chronic E Codes: Fall (8 sources) Fall; Translations: [Unspecified fall, initial encounter] 09-18-2022 Episodic Esophageal disorders (11 sources) Gastroesophageal reflux disease; Translations: [Gastro-esophageal reflux disease without esophagitis] Chronic Essential hypertension (20 sources) Hypertensive disorder; Translations: [Essential hypertension] 04-29-2017 Chronic Fracture of lower limb (15 sources) Closed fracture of fifth metatarsal bone; Translations: [Nondisplaced fracture of fifth metatarsal bone, right foot, initial encounter for closed fracture] 09-17-2022 Episodic Heart valve disorders (20 sources) Nonrheumatic aortic (valve) stenosis with insufficiency; Translations: [Aortic stenosis, non-rheumatic ] Onset: 04-08-2017 04-29-2017 Chronic Comment on above: # 21 Trifecta Valve @ [facility] Dr S[place] Malaise and fatigue (9 sources) Fatigue; Translations: [Other fatigue] Episodic Nonspecific chest pain (18 sources) Chest pain; Translations: [Chest pain, unspecified] 07-05-2021 Episodic Osteoarthritis (14 sources) Osteoarthritis of right knee joint; Translations: [Unilateral primary osteoarthritis, right knee] Onset: 08-17-2024 09-17-2022 Chronic Other and unspecified benign neoplasm (7 sources) History of polyp of colon; Translations: [Personal history of colonic polyps] 04-04-2023 Episodic Other and unspecified benign neoplasm (1 source) Personal history of colonic polyps; Translations: [Personal history of colonic polyps] 04-04-2023 Episodic Other connective tissue disease (6 sources) Swelling of lower limb; Translations: [Other specified soft tissue disorders] 01-30-2024 Episodic Other inflammatory condition of skin (6 sources) Pruritus, unspecified; Translations: [Pruritus] 08-17-2024 Episodic Other lower respiratory disease (18 sources) Dyspnea on exertion; Translations: [Dyspnea, unspecified] 02-20-2022 Episodic Other lower respiratory disease (18 sources) Chronic cough; Translations: [Chronic cough] 02-23-2021 Episodic Other lower respiratory disease (18 sources) Productive cough ; Translations: [Productive cough] 03-14-2021 Episodic Other lower respiratory disease (7 sources) Dyspnea, unspecified; Translations: [Other respiratory abnormalities] Episodic Other lower respiratory disease (15 sources) Other forms of dyspnea; Translations: [Other respiratory abnormalities] Episodic Other non-traumatic joint disorders (8 sources) Pain in right knee; Translations: [Right knee pain] 02-06-2024 Episodic Other non-traumatic joint disorders (4 sources) Hip pain; Translations: [Pain in left hip] 12-30-2024 Episodic Other non-traumatic joint disorders (1 source) Pain in left hip; Translations: [Pain in left hip] Onset: 01-25-2025 Episodic Other nutritional; endocrine; and metabolic disorders (6 sources) Obesity; Translations: [Obesity, unspecified] Chronic Other nutritional; endocrine; and metabolic disorders (2 sources) Overweight; Translations: [Overweight] 03-17-2025 Episodic Other screening for suspected conditions (not mental disorders or infectious disease) (20 sources) Patient encounter status; Translations: [Encounter for screening for malignant neoplasm of intestinal tract, unspecified] Episodic Pulmonary heart disease (20 sources) Other secondary pulmonary hypertension; Translations: [Pulmonary arterial hypertension] Onset: 04-29-2017 04-29-2017 Chronic Residual codes; unclassified (20 sources) Sleep apnea; Translations: [Sleep apnea, unspecified] 02-22-2022 Chronic Residual codes; unclassified (7 sources) Sleep apnea, unspecified; Translations: [Unspecified sleep apnea] Chronic Residual codes; unclassified (15 sources) Obstructive sleep apnea syndrome; Translations: [Obstructive sleep apnea (adult) (pediatric)] 09-06-2022 Chronic Residual codes; unclassified (13 sources) Obstructive sleep apnea (adult) (pediatric); Translations: [Obstructive sleep apnea (adult)(pediatric)] Chronic Residual codes; unclassified (7 sources) Insomnia; Translations: [Insomnia, unspecified] 09-13-2022 Episodic Unclassified (10 sources) Long-term drug therapy; Translations: [Other buttermilk drier operator (current) drug therapy] Onset: 04-29-2017 05-01-2017 Unclassified (5 sources) Replacement of aortic valve ; Translations: [Presence of prosthetic heart valve] Onset: 04-29-2017 04-29-2017 Unclassified (4 sources) Primary osteoarthritis of right knee; Translations: [M17.11 - Unilateral primary osteoarthritis, right knee] Unclassified (2 sources) R53.83 - Other fatigue,E66.9 - Obesity, unspecified Unclassified (4 sources) Pain of left hip; Translations: [M25.552 - Pain in left hip] Urinary tract infections (18 sources) Urinary tract infectious disease; Translations: [Urinary tract infection, site not specified] 05-03-2023 Episodic Past or Other Problems Problem Classification Problem Date Documented Da te Episodic/Chronic Coronary atherosclerosis and other heart disease (20 sources) Presence of coronary angioplasty implant and graft; Translations: [Percutaneous transluminal coronary angioplasty status] Onset: 03-02-2022 Episodic Fever of unknown origin (5 sources) Fever; Translations: [Fever, unspecified] Onset: 04-29-2017 04-29-2017 Episodic Genitourinary symptoms and ill-defined conditions (1 source) Dysuria; Translations: [Dysuria] Onset: 12-15-2024 Episodic Immunizations and screening for infectious disease (1 source) Encounter for immunization; Translations: [Encounter for immunization] Onset: 08-17-2024 Episodic Pleurisy; pneumothorax; pulmonary collapse (5 sources) Bilateral pleural effusion; Translations: [Pleural effusion, not elsewhere classified] Onset: 04-29-2017 04-29-2017 Episodic Unclassified (5 sources) Body mass index (BMI) 25.0-25.9, adult; Translations: [Body mass index (BMI) 25.0-25.9, adult] Onset: 05-01-2017 05-01-2017 Episodic Results Test Name Value Interpretation Reference Range Facility Cardiology Visit Reporton Cardiology Visit Report [facility] [address] [place] [address] OFFICE VISIT Date of Service: 03/23/25 MR#: [id number] Acct: [id number] Name: KARYN MULLER Rep #: [id number] : 1945 Provider: Dr. Yong Mora MD Age/Sex: 79/F Location: [facility] [place] [facility] [place] Status: Signed HPI HPI History of Present Illness Details: This is a 79-year-old female who presents for a cardiovascular outpatient follow-up. 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 Sutherland. Prior to her valve replacement her cardiac catheterization in February 2017 demonstrated a 50% proximal LAD stenosis, and a 30% circumflex artery stenosis. Her echocardiogram in April 2020 demonstrating an ejection fraction of 65% stage I diastolic dysfunction and a stable aortic valve with a peak mean gradient of 17/10 mmHg. She underwent a stress test on 03/31/2021 that was negative for ischemia. She was evaluated in January 2022 with exertional shortness of breath that was felt to be an anginal equivalent. She proceeded with a heart catheterization 03/02/2022 that showed significant mid LAD and diagonal disease and mild disease noted in the circumflex artery and right coronary artery. She proceeded with drug-eluting stent to proximal LAD/diagonal 2 bifurcation and balloon angioplasty to ostial second diagonal. She denies chest, arm, jaw, or neck discomfort. She denies palpitations. She denies bilateral lower extremity edema. She denies claudication. She states shortness of breath with activity such as going up stairs. She denies shortness of breath at rest, orthopnea, or PND. She denies chronic cough. She denies significant, sudden weight gain. She denies lightheadedness, dizziness, near- syncope, or syncope. She denies blood in urine, blood in stool, or epistaxis. He denies fever with chills. She denies myalgia. She states weakness and fatigue. Her exercise level has remained stable. 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: No Accompanied by: Self Is patient in pain?: No Allergies meloxicam Adverse Reaction (Verified 03/23/25 14:37) Nausea methotrexate Adverse Reaction (Verified 03/23/25 14:37) Nausea NSAIDS (Non-Steroidal Anti-Inflamma Adverse Reaction (Verified 03/23/25 14:37) Nausea Sulfa (Sulfonamide Antibiotics) Adverse Reaction (Verified 03/23/25 14:37) Nausea Medications ???Medication ???Instructions ???Recorded ???Confirmed ???Type cyanocobalamin (vitamin B-12) 1,000 mcg PO DAILY SUPPLEMENT 01/2803/23/25 History 1,000 mcg tablet aspirin 81 mg tablet,delayed 81 mg PO QDAY heart health 8 03/23/25 History release (Adult Low Dose Aspirin) calcium 600 mg (as carbonate)-vit 1 tab PO QDAY vitamin 10/02/17 History D3 10 mcg (400 unit)-minerals tablet multivitamin 1 tab PO DAILY vitamin 02/02/19 History acetaminophen 650 mg 1,300 mg PO Q12H arthritis 2 03/23/25 History tablet,extended release albuterol sulfate 90 mcg/actuation 2 puff inhalation Q4H PRN 03/23/25 Rx aerosol inhaler shortness of breath or wheezing #8.5 grams flaxseed oil 1,000 mg capsule 1,000 mg PO DAILY 03/12/23 5 History trazodone 100 mg tablet 50 mg (1/2 x 100 mg) PO QHS PRN 03/23/25 Rx insomnia #90 tabs ferrous sulfate 325 mg (65 mg 325 mg PO QDAY 08/31/24 03/23/25 H istory iron) tablet pravastatin 40 mg tablet See Rx Instructions .Route 5 03/23/25 Rx .COMPLEX #90 tabs ascorbic acid (vitamin C) 1,000 mg 1 g PO QDAY vitamin 12/30/24 History tablet metoprolol succinate 50 mg 50 mg PO QHS BLOOD PRESSURE #90 03/23/25 Rx tablet,extended release 24 hr tabs fluticasone furoate 200 1 inh inhalation DAILY #3 ea 03/1603/23/25 Rx mcg-vilanterol 25 mcg/dose inhalation powder (Breo Ellipta) losartan 50 mg-hydrochlorothiazide 1 tab PO BID #180 tabs 03/23/25 03/23/25 Rx 12.5 mg tablet Have you fallen in the past year?: No [facility] Medical History Left hip pain Pruritus Preop exam for internal medicine Wears hearing aid Wears glasses Alcohol use Low iron Restless legs Heartburn CPAP (continuous positive airway pressure) dependence Former smoker Liliane (more content not included)... Normal [facility] Pulmonary Visit Reporton Pulmonary Visit Report [facility] of [address] [place] [address] OFFICE VISIT Date of Service: 03/16/25 MR#: [id number] Acct: [id number] Name: KARYN MULLER Rep #: [id number] : 1945 Provider: ROE Suh Age/Sex: 79/F Location: [facility] [place] Status: Signed Assessment and Plan Assessment and Plan (1) JOSE (obstructive sleep apnea): Status: Chronic Plan: Suboptimally controlled. Mildly elevated residual AHI. Increasing AutoPap range to 5 to 15 cm water. Return to the office in 3 months to evaluate response and compliance report. Contact the office with any difficulty acclimating to new pressure. No indication for titration study. She is using and benefiting from PAP therapy. (2) Asthma: Status: Chronic Qualifiers: Asthma severity: moderate Asthma persistence: persistent Asthma complication type: uncomplicated Qualified Code(s): J45.40 - Moderate persistent asthma, uncomplicated Comment: Breo Plan: Stable, no signs of exacerbation of asthma today. No change in maintenance medications. No additional testing at this time. Contact the office with any signs of new or worsening symptoms. Follow-up in 3 months. (3) Overweight: Status: Chronic Plan: Continue to encourage healthy weight loss by diet control and light exercise. Decrease in BMI can help optimize control of sleep apnea. Conversely, optimizing control of obstructive sleep apnea can support healthy weight loss. Medications: Refilled fluticasone furoate-vilanterol 200-25 mcg/dose (Breo Ellipta) 1 inh inhalation DAILY 3 ea 3RF Plan Details Additional Comments: This note was generated with [employer] dictation software. It may contain incorrect words, spelling, and punctuation that were not noted in checking the note before signing. Follow Up: 3 Months HPI 1 Y FU Chief Complaint: Routine follow-up HPI Comments Details: This patient presents to the office today to follow-up on her obstructive sleep apnea and asthma. She is ambulatory and currently on room air. She has not been seen in the ED or urgent care for any respiratory illnesses since her last office visit. She has not required any antibiotics or prednisone for any breathing problems. She is compliant with the use of Breo 1 puff daily. She does report rinsing her mouth out after each use. She denies any medication side effects such as sore throat or thrush. She has not recently needed to utilize her albuterol rescue inhaler. She does have occasional shortness of breath on exertion. She has an occasional cough productive of yellow sputum. She denies any wheezing, chest tightness, chest pain or palpitations. She has not had any fever, chills or body aches. She is having occasional dry mouth. She is not requiring naps but is not feeling rested. She is not experiencing nocturia. She wakes feeling rested with the use of her PAP device. Compliance report for the past 30 days shows 100% compliance with an average use of 9 hours and 38 minutes per night. Current setting is AutoPap 5-12 centimeters of water pressure typically being utilized at 9.1 to 11.8 cm water. Residual AHI of 8.8 events per hour. Leaks are mildly problematic. 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: [employer]ben Accompanied by: Self Allergies meloxicam Adverse Reaction (Verified 03/16/25 15:20) Nausea methotrexate Adverse Reaction (Verified 03/16/25 15:20) Nausea NSAIDS (Non-Steroidal Anti-Inflamma Adverse Reaction (Verified 03/16/25 15:20) Nausea Sulfa (Sulfonamide Antibiotics) Adverse Reaction (Verified 03/16/25 15:20) Nausea Medications ???Medication ???Instructions ???Recorded ???Confirmed ???Type cyanocobalamin (vitamin B-12) 1,000 mcg PO DAILY SUPPLEMENT 01/2803/16/25 History 1,000 mcg tablet aspirin 81 mg tablet,delayed 81 mg PO QDAY heart health 8 03/16/25 History release (Adult Low Dose Aspirin) calcium 600 mg (as carbonate)-vit 1 tab PO QDAY vitamin 10/02/17 History D3 10 mcg (400 unit)-minerals tablet multivitamin 1 tab PO DAILY vitamin 02/02/19 History acetaminophen 650 mg 1,300 mg PO Q12H arthritis 2 03/16/25 History tablet,extended release albuterol sulfate 90 mcg/actuation 2 puff inhalation Q4H PRN 03/16/25 Rx aerosol inhaler shortness of breath or wheezing #8.5 grams (more content not included)... Normal [facility] PT D/C Summary (1)on 025 PT D/C Summary (1) [facility] Physical Therapy [address] [place] [address] / REHABILITATION SERVICES DISCHARGE SUMMARY MR#: [id number] Acct: [id number] Name: KARYN MULLER Rep #: [id number] : 1945 79 From: Sonu Mast PT, ATC Referring Dr.: Dr. Stacey Robledo MD Status: R EG RCR Insurance: MEDICARE PART A B [facility] Discharge Summary D/C summary: It has been my pleasure to treat KARYN MULLER referred by Dr. Stacey Robledo MD, with the diagnosis of L hip pain for a total of 7 visit(s). Discharge Date: Please see the following information for a summary of their discharge status. Subjective Subjective: I am ready to be done Pain L hip pain: Pain Intensity (Out of 10): 1 Objective Objective/Function: L hip pain is 1/10 Pt is I with HEP Pt can perform sit to stand transfers without difficulty Goals Goal 1:: Decrease L hip pain x 50% to aid with sleep Goal Progress: Goal Met Goal 2:: Pt will transfer sit to stand without difficulty to aid with mobility Goal Progress: Goal Met Goal 3:: I with HEP Goal Progress: Goal Met Plan Plan: Discharge to HEP D/C Information d/c sentence: If there are questions or concerns regarding this patient's physical therapy, please feel free to call me at [phone]. Thank you for the referral of this patient. Sincerely, Sonu Mast, PT, ATC Balance/Gait/Functional tests Balance/Special Test Scores Lower Extremity Functional Score: 45 01/22/25 1001 CC: Dr. Stacey Robledo MD [facility] Signed Normal [facility] MR/BMS.IMBon 12-30-2024 MR/BMS.IMB [facility] [address] [facility] [address] [place] [address] OFFICE VISIT Date of Service: 12/30/24 MR#: [id number] Acct: [id number] Name: KARYN MULLER Rep #: [id number] : 1945 Provider: Dr. Stacey joya MD Age/Sex: 79/F Location: [facility] Status: Signed Intake Vital Signs 12/01/24 14:34 12/30/24 09:42 Height 5 ft 3 in 5 ft 3 in Weight: 168 lb 8 oz 168 lb 2 oz BMI 29.8 29.7 BP 120/66 127/75 H Blood Pressure Location Lt brachial Position Sitting Sitting Respiration 16 Pulse 69 59 L Pulse Source Monitor Temp 98.1 F 97.8 F Temp Source Oral Temporal Pulse Oximetry (%) 98 95 Oxygen Delivery Method room air room air Intake Visit Reasons: Groin Pain Chief Complaint: Groin Pain Real Estate Broker Associate Required: No Accompanied by: Self Is patient in pain?: Yes (groin pain) Pain scale (1-10): 2 Allergies meloxicam Adverse Reaction (Verified 12/30/24 09:36) Nausea methotrexate Adverse Reaction (Verified 12/30/24 09:36) Nausea NSAIDS (Non-Steroidal Anti-Inflamma Adverse Reaction (Verified 12/30/24 09:36) Nausea Sulfa (Sulfonamide Antibiotics) Adverse Reaction (Verified 12/30/24 09:36) Nausea Medications ???Medication ???Instructions ???Recorded ???Confirmed ???Type cyanocobalamin (vitamin B-12) 1,000 mcg PO DAILY SUPPLEMENT 01/2812/30/24 History 1,000 mcg tablet aspirin 81 mg tablet,delayed 81 mg PO QDAY heart health 8 12/30/24 History release (Adult Low Dose Aspirin) calcium 600 mg (as carbonate)-vit 1 tab PO QDAY vitamin 10/02/17 History D3 10 mcg (400 unit)-minerals tablet multivitamin 1 tab PO DAILY vitamin 02/02/19 History acetaminophen 650 mg 1,300 mg PO Q12H arthritis 2 12/30/24 History tablet,extended release albuterol sulfate 90 mcg/actuation 2 puff inhalation Q4H PRN 12/30/24 Rx aerosol inhaler shortness of breath or wheezing #8.5 grams flaxseed oil 1,000 mg capsule 1,000 mg PO DAILY 03/12/23 5 History metoprolol succinate 50 mg 50 mg PO QHS BLOOD PRESSURE #90 12/30/24 Rx tablet,extended release 24 hr tabs fluticasone furoate 200 1 inh inhalation DAILY #3 ea 01/2112/30/24 Rx mcg-vilanterol 25 mcg/dose inhalation powder (Breo Ellipta) trazodone 100 mg tablet 50 mg (1/2 x 100 mg) PO QHS PRN 12/30/24 Rx insomnia #90 tabs losartan 50 mg-hydrochlorothiazide 1 tab PO BID #180 tabs 08/10/24 12/30/24 Rx 12.5 mg tablet ferrous sulfate 325 mg (65 mg 325 mg PO QDAY 08/31/24 12/30/24 H istory iron) tablet pravastatin 40 mg tablet See Rx Instructions .Route 5 12/30/24 Rx .COMPLEX #90 tabs ascorbic acid (vitamin C) 1,000 mg 1 g PO QDAY vitamin 12/30/2411/24 History tablet Have you fallen in the past year?: No PFSH Medical History (Updated 12/30/24 @ 10:[address] 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 Nonrheumatic aortic (valve) stenosis Essential (primary) hypertension COVID-19 (08/31/20) Psoriatic arthritis Hyperlipidemia Surgical History History of cardiac catheterization History of colonoscopy History of coronary artery stent placement (03/02/22) History of left heart catheterization (03/14/17) History of shoulder surgery History of partial colectomy ( 2011) H/O aortic valve replacement (04/08/17) Family History Brother Heart disease AV replaced and CABG X 1 CAD (coronary artery disease) CABG x 1 w/ AVR Social History Smoking Status: Former smoker how long ago did patient quit smokin + years ago alcohol intake: current alcohol intake frequency: 0-2 drinks per day Alcohol type: hard liquor substance use type: does not use caffeine: Yes Type: coffee Number of servings: 2 HPI HPI Chief Complaint: Groin Pain Details: KARYN MULLER, is a 79 F who presents to the office today for an acute care follow-up visit. Groin pain last 2 to 3 weeks, left-sided. Hurts when standing, walking. Not aching necessarily at night. Sitting is fine. No recent trauma. Did not twist on the hip. She recently replaced her right knee. She did well with that. She has completed geophysical support specialist (more content not included)... Normal [facility] PT D/C Summary (1)on 025 PT D/C Summary (1) [facility] [place] [id number] [facility] [place] [address] / REHABILITATION SERVICES DISCHARGE SUMMARY MR#: [id number] Acct: [id number] Name: KARYN MULLER Rep #: [id number] : 1945 79 From: Sonu Mast PT, ATC Referring Dr.: Dr. Daniel Lim MD Status: R EG RCR Insurance: MEDICARE PART A B [facility] Discharge Summary D/C summary: It has been my pleasure to treat KARYN MULLER referred by Dr. Daniel Lim MD, with the diagnosis of R TKA 10/07/24 for a total of 13 visit(s). Discharge Date: Please see the following information for a summary of their discharge status. Subjective Subjective: I feel ready to be done Pain R knee: Pain Intensity (Out of 10): 0 Overall Improvement % Improvement: 90 Objective Objective/Function: R knee pain ranges from 0-4/10 R knee ROM: 0-124 degrees R knee MMT: flex= 24, ext= 34 #F Pt is I with HEP Goals Goal 1:: Decrease R knee pain x 50% to aid with sleep Goal Progress: Goal Met Goal 2:: Increase R knee ROM x 20 degrees to aid with restoring a more normalized gait pattern Goal Progress: Goal Met Goal 3:: I with HEP Goal Progress: Goal Met Goal 4:: Increase R knee strength x 5-10#F to aid with stair negotiation Goal Progress: Goal Met Plan Plan: Discharge to I gym routine D/C Information d/c sentence: If there are questions or concerns regarding this patient's physical therapy, please feel free to call me at [phone]. Thank you for the referral of this patient. Sincerely, Sonu Mast, PT, ATC Balance/Gait/Functional tests Balance/Special Test Scores Lower Extremity Functional Score: 27 WOMAC Total Score: 20 WOMAC Percentage: 79.1700 Improvement % Improvement: 90 12/04/24 1233 CC: Dr. Daniel Lim MD; Dr. Stacey Robledo MD [facility] Signed Normal [facility] Urine Cultureon 12-03-2024 URC Presumptive E. coli [place] Count >100,000 Presumptive E. coli: REACTION Ampicillin Islt DEBORA >=32 Ampicillin+Sulbac Islt DEBORA 8 S Cefepime Islt DEBORA <=0.12 S cefTRIAXone Islt DEBORA 0.5 S Ciprofloxacin Islt DEBORA 0.12 S B-Lactamase Extended Susc Islt NEG Gentamicin Islt DEBORA <=1 S levoFLOXacin Islt DEBORA 0.25 S Meropenem Islt [place]BORA <=0.25 S Nitrofurantoin Islt DEBORA <=16 S Pip+Tazo Islt DEBORA <=4 S TMP SMX Islt DEBORA <=[address] [facility] Comment on above: Performed By: #### M 100.2200 ####[facility] [id number] [place], [address] Laboratory - Chemistry and C hemistry - challengeOrdered By: Deondre Philip on 12-01-2024 Bilirubin Ql (U) Negative [facility] Glucose Ql (U) Negative [facility] Ketones Ql (U) Trace (5) [facility] pH (U) 6.5 [pH] [facility] Specific gravity (U) [Rel density] 1.[address] [facility] Urobilinogen (U) [Mass/Vol] 1 mg/dL [facility] Laboratory - Hematology and Cell countsOrdered By: Deondre Philip on 12-01-2024 Hemoglobin Ql (U) Negative [facility] Laboratory - Specimen inform ationOrdered By: Deondre Philip on 12-01-2024 Clarity (U) Clear [facility] Color (U) Yellow [facility] Laboratory - UrinalysisOrder ed By: Deondre Philip on 12-01-2024 Nitrite Ql (U) Positive [facility] Protein Ql (U) Trace [facility] No Panel InformationOrdered By: Deondre Philip on 12-01-2024 Urine Leukocytes Positive [facility] Comment on above: moderate Urine Non-Hemolyzed Blood Negative [facility] Urgent Care Visit Reporton 0 12-01-2024 Urgent Care Visit Report [facility] [address], [address] [place] [id number] OFFICE VISIT Date of Service: 12/01/24 MR#: [id number] Acct: [id number] Name: KARYN MULLER Rep #: [id number] : 1945 Provider: ROBLES Bañuelos Age/Sex: 79/F Location: [facility] [place] Status: Signed Intake Vital Signs 08/31/24 11:12 12/01/24 14:34 Height 5 ft 3 in 5 ft 3 in Weight: 170 lb 168 lb 8 oz BMI 30.1 29.8 BP 119/67 120/66 Blood Pressure Location Lt brachial Position Sitting Sitting Respiration 20 H Pulse 67 69 Pulse Source NIBP Temp 98.1 F Temp Source Oral Pulse Oximetry (%) 97 98 Oxygen Delivery Method room air room air Intake Visit Reasons: CONCERN FOR UTI Accompanied by: Self Allergies meloxicam Adverse Reaction (Verified 12/01/24 14:33) Nausea methotrexate Adverse Reaction (Verified 12/01/24 14:33) Nausea NSAIDS (Non-Steroidal Anti-Inflamma Adverse Reaction (Verified 12/01/24 14:33) Nausea Sulfa (Sulfonamide Antibiotics) Adverse Reaction (Verified 12/01/24 14:33) Nausea Medications ???Medication ???Instructions ???Recorded ???Confirmed ???Type cyanocobalamin (vitamin B-12) 1,000 mcg PO DAILY SUPPLEMENT 01/28 012/01/24 History 1,000 mcg tablet aspirin 81 mg tablet,delayed 81 mg PO QDAY heart health 8 12/01/24 History release (Adult Low Dose Aspirin) calcium 600 mg (as carbonate)-vit 1 tab PO QDAY vitamin 10/02/17 History D3 10 mcg (400 unit)-minerals tablet multivitamin 1 tab PO DAILY vitamin 02/02/19 History ascorbic acid (vitamin C) 1,000 mg 1 g PO BID vitamin 02/10/2101/22 History tablet acetaminophen 650 mg 1,300 mg PO Q12H arthritis 2 12/01/24 History tablet,extended release albuterol sulfate 90 mcg/actuation 2 puff inhalation Q4H PRN 12/01/24 Rx aerosol inhaler shortness of breath or wheezing #8.5 grams flaxseed oil 1,000 mg capsule 1,000 mg PO DAILY 03/12/23 5 History metoprolol succinate 50 mg 50 mg PO QHS BLOOD PRESSURE #90 12/01/24 Rx tablet,extended release 24 hr tabs fluticasone furoate 200 1 inh inhalation DAILY #3 ea 01/2112/01/24 Rx mcg-vilanterol 25 mcg/dose inhalation powder (Breo Ellipta) trazodone 100 mg tablet 50 mg (1/2 x 100 mg) PO QHS PRN 12/01/24 Rx insomnia #90 tabs losartan 50 mg-hydrochlorothiazide 1 tab PO BID #180 tabs 08/10/24 12/01/24 Rx 12.5 mg tablet ferrous sulfate 325 mg (65 mg 325 mg PO QDAY 08/31/24 12/01/24 H istory iron) tablet pravastatin 40 mg tablet See Rx Instructions .Route 5 12/01/24 Rx .COMPLEX #90 tabs nitrofurantoin 100 mg PO Q12H 5 days #10 caps 01/2212/01/24 Rx monohydrate/macrocrysta ls 100 mg capsule (Macrobid) Have you fallen in the past year?: No Nurse's Note: Patient has burning and a odor that has been going on for 3.5 days. [facility] Medical History Pruritus Preop exam for internal medicine Wears hearing aid Wears glasses Alcohol use Low iron Restless legs Heartburn CPAP (continuous positive airway pressure) dependence Former smoker Shortness of breath on exertion Cardiology follow-up encounter History of stress test History of echocardiogram Sleep apnea Bereavement due to life event Bereavement counseling Generalized OA Diverticulitis 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 Nonrheumatic aortic (valve) stenosis Essential (primary) hypertension COVID-19 (08/31/20) Psoriatic arthritis Hyperlipidemia Surgical History History of cardiac catheterization History of colonoscopy History of coronary artery stent placement (03/02/22) History of left heart catheterization (03/14/17) History of shoulder surgery History of partial colectomy ( 2011) H/O aortic valve replacement (04/08/17) Family History Brother Heart disease AV replaced and CABG X 1 CAD (coronary artery disease) CABG x 1 w/ AVR Social History (Updated 08/31/24 @ 11:22 by Aura Bautista) Smoking Status: Former smoker how long ago did patient quit smokin + years ago alcohol intake: current alcohol intake frequency: 0-2 drinks per day Alcohol type: hard liquor substance use type: does not use caffeine: Yes Type: coffee Number of servings: 2 HPI HPI Details: KARYN MULLER, is a 79 F who presents to the office today for [facility] evaluation at [facility] for approximately 3-5 day history of malodorous dysuria and urinary frequency with suprapubic pressure. No complaints of fever, chills, sweats, lightheadedness/dizzine ss, nausea/vomiting, or chest pain/shortness of breath/dyspnea on exertion/mid- (more content not included)... Normal [facility] Urine cultureOrdered By: Larry Philip on 12-01-2024 Bacteria identified Cx Nom (U) Presumptive E. coli Abnormal [facility] Inital Evaluation (1) - PTon 11-04-2024 Inital Evaluation (1) - PT [facility] Physical Therapy [facility] [address] [place] [address]. [address] [place] [address] / REHABILITATION SERVICES INITIAL EVALUATION MR#: [id number] Acct: [id number] Name: KARYN MULLER Rep #: [id number] : 1945 79 From: Sonu Mast PT, ATC Referring Dr.: Dr. Daniel Lim MD Status: R EG RCR Insurance: MEDICARE PART A B [facility] Patient's Visit Information Visit Information Visit Information: KARYN MULLER is a 79 year old F referred to Physical Therapy by Dr. 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 Date of Evaluation: 11/04/24 Physical Therapist: Sonu Mast, PT, ATC Visit Plan Frequency: 2-3x /Week Duration: 4 Weeks Plan: R knee stretching and strengthening, balance and proprio, core stab ex's, nustep, and HEP Subjective Subjective: DOS: 10/07/24. Pt reports she had a R TKA performed at that time. Pt reports she had home health therapy for a couple weeks and is doing really well at this time. Pt notes she had a chronic Hx of R knee pain prior to the surgery. Pt is still in a lot of pain at this time, but notes she is glad she had the surgery as her pain is improving daily. Pt denies tingling or numbness in R LE at this time. Pt notes she continues to have sleep difficulty at this time secondary to pain. Pt reports she has 13 stairs to get to her garage, and is able to negotiate them one step at a time. 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 2/10 pain while sitting here at rest, 7/10 pain at worst (when she is stretching) Pain R knee: Pain Intensity (Out of 10): 2 Pain Intensity Range: 7 Objective Objective: Neuro: B LE sensation is WNL to light touch. ROM: L knee 0-127 degrees; R knee 0-10-110 degrees MMT: L knee flex= 27, ext= 28 #F; R knee flex= 17, ext= 24 #F TU.28 sec Balance/Special Test Scores Lower Extremity Functional Score: 27 Goals Goal 1:: Decrease R knee pain x 50% to aid with sleep Goal Time Frame: 4-6 Weeks Goal 2:: Increase R knee ROM x 20 degrees to aid with restoring a more normalized gait pattern Goal Time Frame: 4-6 Weeks Goal 3:: I with HEP Goal Time Frame: 4-6 Weeks Goal 4:: Increase R knee strength x 5-10#F to aid with stair negotiation Goal Time Frame: 4-6 Weeks Rehabilitation Potential Physical Therapy Diagnosis: Pt has R knee pain, weakness, and limited ROM secondary to R TKA Rehabilitation Potential: Good Anticipated Interventions Patient/Client Instruction: Educate patient on: Condition and Plan of Care For the Purpose of:: To improve self management Therapeutic Exercise to Include: Strength training, Endurance training, Flexibilty training, Gait and locomotor training, Active ROM, Dynamic Lumbar Stabilization and Inocente Exercises For the Purpose of:: To decrease pain, To increase ROM and To improve muscle performance and motor function Cryotherapy (ice pack, ice massage): Yes For the Purpose of:: To decrease pain Text: Thank you for the opportunity to evaluate your patient. For Medicare and Medicare HMO plans, please review the plan of care and approve it. It will need to be FAXED BACK to us at [phone] for Medicare purposes. For Medicare only, by signing this I certify the plan of care. Please let me know if there are questions or concerns regarding this plan of care. Physician Signature: Date: 11/04/24 1429 CC: Dr. Daniel Lim MD; Dr. Stacey Robledo MD [facility] Signed Normal [facility] Cardiology Visit Reporton Cardiology Visit Report [facility] [address] [place] [address]. [address] [place] [address] OFFICE VISIT Date of Service: 08/31/24 MR#: [id number] Acct: [id number] Name: KARYN MULLER Rep #: [id number] : 1945 Provider: ROE portillo Age/Sex: 79/F Location: [facility] Status: Signed HPI HPI History of Present Illness Details: This is a 79-year-old female who presents for a cardiovascular outpatient follow-up. 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 Sutherland. Prior to her valve replacement her cardiac catheterization in February 2017 demonstrated a 50% proximal LAD stenosis, and a 30% circumflex artery stenosis. Her echocardiogram in April 2020 demonstrating an ejection fraction of 65% stage I diastolic dysfunction and a stable aortic valve with a peak mean gradient of 17/10 mmHg. She underwent a stress test on 03/31/2021 that was negative for ischemia. She was evaluated in January 2022 with exertional shortness of breath that was felt to be an anginal equivalent. She proceeded with a heart catheterization 03/02/2022 that showed significant mid LAD and diagonal disease and mild disease noted in the circumflex artery and right coronary artery. She proceeded with drug-eluting stent to proximal LAD/diagonal 2 bifurcation and balloon angioplasty to ostial second diagonal. She denies chest, arm, jaw, or neck discomfort. She denies palpitations. She denies bilateral lower extremity edema. She denies claudication. She states shortness of breath with activity such as going up stairs. She denies shortness of breath at rest, orthopnea, or PND. She denies chronic cough. She denies significant, sudden weight gain. She denies lightheadedness, dizziness, near- syncope, or syncope. She denies blood in urine, blood in stool, or epistaxis. He denies fever with chills. She denies myalgia. She states weakness and fatigue. Her exercise level has remained stable. Intake Vital Signs 03/17/24 11:37 08/17/24 13:58 08/31/24 11:12 Height 5 ft 3 in 5 ft 3 in 5 ft 3 in Weight: 170 lb BMI 30.1 BP 119/67 Blood Pressure Location Lt brachial Position Sitting Respiration 20 H Pulse 67 Pulse Source NIBP Pulse Oximetry (%) 97 Oxygen Delivery Method room air Intake Visit Reasons: 6 M FU Real Estate Broker Associate Required: No Is patient in pain?: No Allergies meloxicam Adverse Reaction (Verified 08/31/24 11:16) Nausea methotrexate Adverse Reaction (Verified 08/31/24 11:16) Nausea NSAIDS (Non-Steroidal Anti-Inflamma Adverse Reaction (Verified 08/31/24 11:16) Nausea Sulfa (Sulfonamide Antibiotics) Adverse Reaction (Verified 08/31/24 11:16) Nausea Medications ???Medication ???Instructions ???Recorded ???Confirmed ???Type cyanocobalamin (vitamin B-12) 1,000 mcg PO DAILY SUPPLEMENT 02/06/17 08/31/24 History 1,000 mcg tablet aspirin 81 mg tablet,delayed 81 mg PO QDAY heart health 10/02/17 08/31/24 History release (Adult Low Dose Aspirin) calcium 600 mg (as carbonate)-vit 1 tab PO QDAY vitamin 10/02/17 08/31/24 History D3 10 mcg (400 unit)-minerals tablet multivitamin 1 tab PO DAILY vitamin 02/02/19 08/31/24 History ascorbic acid (vitamin C) 1,000 mg 1 g PO BID vitamin 02/10/21 08/31/24 History tablet acetaminophen 650 mg 1,300 mg PO Q12H arthritis 02/22/22 08/31/24 History tablet,extended release albuterol sulfate 90 mcg/actuation 2 puff inhalation Q4H PRN 05/17/22 08/31/24 Rx aerosol inhaler shortness of breath or wheezing #8.5 grams flaxseed oil 1,000 mg capsule 1,000 mg PO DAILY 03/12/23 08/31/24 History metoprolol succinate 50 mg 50 mg PO QHS BLOOD PRESSURE #90 11/01/23 08/31/24 Rx tablet,extended release 24 hr tabs pravastatin 40 mg tablet See Rx Instructions .Route 11/18/23 08/31/24 Rx .COMPLEX #90 tabs fluticasone furoate 200 1 inh inhalation DAILY #3 ea 01/22/24 08/31/24 Rx mcg-vilanterol 25 mcg/dose inhalation powder (Breo Ellipta) trazodone 100 mg tablet 50 mg (1/2 x 100 mg) PO QHS PRN 06/15/24 08/31/24 Rx insomnia #90 tabs losartan 50 mg-hydrochlorothiazide 1 tab PO BID #180 tabs 08/10/24 08/31/24 Rx 12.5 mg tablet ferrous sulfate 325 mg (65 mg 325 mg PO QDAY 08/31/24 08/31/24 History iron) tablet Ejection fraction %: 60 Have you fallen in the past year?: Yes (Trip and fall) Nurse's Note: Episode last Saturday after being on a stressful call. States that her face was red, she was angry and frustrated. When she got home BP 190/80's. Gradually went down. [facility] Medical History Pruritus Preop exam for internal medicine Wears hearing aid Wears glasses Alcohol use Low iron Restless legs Heartburn CPAP (continuous positive airway pressure) dependence F (more content not included)... Normal [facility] MR/BMS.[facility] 08-17-2024 MR/BMS.[facility] [address] [place] [address] OFFICE VISIT Date of Service: 08/17/24 MR#: [id number] Acct: [id number] Name: KARYN MULLER Rep #: [id number] : 1945 Provider: Dr. Stacey joya MD Age/Sex: 79/F Location: [facility] [place] Status: Signed with Addenda ADDENDUM by Dr. Stacey Robledo MD on 09/17/24 at 0957 HPI Details: KARYN MULLER, is a 79 F who presents to the office today for Assessment and Plan Assessment and Plan (1) Preop exam for internal medicine: Status: Acute (2) History of coronary artery stent placement: Status: Acute Comment: [id number] LAD at D2 bifurcation w/ 3.5 x 18 mm [facility] Stent and POBA-D2 03/02/22; (3) Nonrheumatic aortic (valve) stenosis: Status: Chronic (4) H/O aortic valve replacement: Status: Chronic Comment: # 21 Trifecta Valve @ [facility] [address] [place] (5) Essential (primary) hypertension: Status: Chronic (6) Hyperlipidemia: Status: Chronic Qualifiers: Hyperlipidemia type: pure hypercholesterolemia Qualified Code(s): E78.00 - Pure hypercholesterolemia, unspecified; E78.0 - Pure hypercholesterolemia (7) Sleep apnea: Status: Acute (8) JOSE (obstructive sleep apnea): Status: Chronic (9) Pruritus: Status: Acute Orders: Orders Influenza Immunization 08/17/24 Z23 - Encounter for immunization Referrals PT Referral M17.11 - Unilateral primary osteoarthritis, right knee Medications: On Hold amlodipine Hold Comment: None 2.5 mg PO DAILY Plan Details Additional Comments: Addendum: Patient will be having total knee replacement, Dr. Lim, [facility] on October 07, 2024. At this time I have no specific reason why she cannot proceed to surgery. She is previously already for this surgery, had cardiac clearance. EKG from [facility], dated 09/16/2024 shows old age-indeterminate anteroseptal infarct, similar to her previous EKGs. At last visit, she had no new untoward symptoms concerning for obstructive coronary disease, or any other acute issues. At this point in time she may proceed to surgery. 09/17/24 0957 Date Stacey Robledo MD cc: * Signed Intake Vital Signs 05/01/24 09:54 08/17/24 13:58 Height 5 ft 3 in 5 ft 3 in Weight: 170 lb BMI 30.1 BP 141/72 H Blood Pressure Location Rt brachial Position Sitting Respiration 16 Pulse 65 Pulse Source Monitor Temp 97.8 F Temp Source Temporal Pulse Oximetry (%) 92 Oxygen Delivery Method room air Intake Visit Reasons: Rash Chief Complaint: rash [employer] Estate [employer] Associate Required: No Accompanied by: Self Is patient in pain?: No Allergies meloxicam Adverse Reaction (Verified 08/17/24 13:49) Nausea methotrexate Adverse Reaction (Verified 08/17/24 13:49) Nausea NSAIDS (Non-Steroidal Anti-Inflamma Adverse Reaction (Verified 08/17/24 13:49) Nausea Sulfa (Sulfonamide Antibiotics) Adverse Reaction (Verified 08/17/24 13:49) Nausea Medications ???Medication ???Instructions ???Recorded ???Confirmed ???Type cyanocobalamin (vitamin B-12) 1,000 mcg PO DAILY SUPPLEMENT 02/06/17 08/17/24 History 1,000 mcg tablet aspirin 81 mg tablet,delayed 81 mg PO QDAY heart health 10/02/17 08/17/24 History release (Adult Low Dose Aspirin) calcium 600 mg (as carbonate)-vit 1 tab PO QDAY vitamin 10/02/17 08/17/24 History D3 10 mcg (400 unit)-minerals tablet multivitamin 1 tab PO DAILY vitamin 02/02/19 08/17/24 History ascorbic acid (vitamin C) 1,000 mg 1 g PO BID vitamin 02/10/21 08/17/24 History tablet acetaminophen 650 mg 1,300 mg PO Q12H arthritis 02/22/22 08/17/24 History tablet,extended release albuterol sulfate 90 mcg/actuation 2 puff inhalation Q4H PRN 05/17/22 08/17/24 Rx aerosol inhaler shortness of breath or wheezing #8.5 grams flaxseed oil 1,000 mg capsule 1,000 mg PO DAILY 03/12/23 08/17/24 History metoprolol succinate 50 mg 50 mg PO QHS BLOOD PRESSURE #90 11/01/23 08/17/24 Rx tablet,extended release 24 hr tabs pravastatin 40 mg tablet See Rx Instructions .Route 11/18/23 08/17/24 Rx .COMPLEX #90 tabs fluticasone furoate 200 1 inh inhalation DAILY #3 ea 01/22/24 08/17/24 Rx mcg-vilanterol 25 mcg/dose inhalation powder (Breo Ellipta) amlodipine 2.5 mg tablet 2.5 mg PO DAILY 03/17/24 08/17/24 History trazodone 100 mg tablet 50 mg (1/2 x 100 mg) PO QHS PRN 06/15/24 08/17/24 Rx insomnia #90 tabs losartan 50 mg-hydrochlorothiazide 1 tab PO BID #180 tabs 08/10/24 08/17/24 Rx 12.5 mg tablet Have you fallen in the past year?: No [facility] Medical History (Updated 08/17/24 @ 16:[address] Stacey Robledo MD) Pruritus Preop exam for internal medicine Wears hearing aid Wears glasses Alcohol use Low iron Restless legs Heartburn CPAP (continuous posit (more content not included)... Normal [facility] PT D/C Summary (1)on 024 PT D/C Summary (1) [facility] [address] [place] [address]. [address] [place] [address] / REHABILITATION SERVICES DISCHARGE SUMMARY MR#: [id number] Acct: [id number] Name: KARYN MULLER Rep #: [id number] : 1945 78 From: Benny Bird DPT, OCS, CSCS Referring Dr.: Dr. Obed Medina DO Status: R EG RCR Insurance: MEDICARE PART A B [facility] Discharge Summary D/C summary: It has been my pleasure to treat KARYN MULLER referred by Dr. Obed Medina DO, with the diagnosis of R knee OA for a total of 15 visit(s). Discharge Date: 07/13/24 Please see the following information for a summary of their discharge status. Subjective Subjective: Pain in knee while on vacation normal and 2/10 up to 6/10 at times. Volume of walking is worse. Avoided stairs due to knee but train had a lift. Straight stairs at home are avoided when can but can do them. Did not do ex while gone. No f/u scheduled with Dr. Ford. Pt wants to lose 10# and doing chair yoga. Pain R knee: Pain Intensity (Out of 10): 0 LBP: Pain Intensity (Out of 10): 0 Overall Improvement % Improvement: 40 Objective Objective/Function: Walksing well today with obvious R knee valgus but no pain this am. Steps are using L only, can use R but requires pulling on two railings. Overall doing well and [facility] get [facility] after her recent [place] vacation and feels like she can do that herself vs more therapy. Goals Goal 1:: I appropriate pool ex to minimize future problems( membership and FLA for winter) Goal Progress: Goal Met Goal 2:: Pain in R knee 2/10 at worst and 50% better Goal Progress: Progressing Goal 3:: Steps reciprocal without pain Goal Progress: Not Progressing Goal 4:: LEFS 50 Goal Progress: Progressing Plan Plan: d/c to HEP D/C Information d/c sentence: If there are questions or concerns regarding this patient's physical therapy, please feel free to call me at [phone]. Thank you for the referral of this patient. Sincerely, Benny Bird, DPT, OCS, CSCS Balance/Gait/Functional tests Balance/Special Test Scores Lower Extremity Functional Score: 42 Improvement % Improvement: 40 07/13/24 0929 CC: Dr. Obed Medina DO; Dr. Stacey Robledo MD EBG Signed Normal [facility] Orthopedic Visit Reporton Orthopedic Visit Report [facility] [address] [place] [address] [address] [place] [address] OFFICE VISIT Date of Service: 06/15/24 MR#: [id number] Acct: [id number] Name: KARYN MULLER Rep #: [id number] : 1945 Provider: Dr. Obed kat DO Age/Sex: 78/F Location: [facility] [place] Status: Signed Intake Vital Signs 05/01/24 09:54 Height 5 ft 3 in Intake Visit Reasons: RIGHT KNEE Accompanied by: Self Allergies meloxicam Adverse Reaction (Verified 06/15/24 10:06) Nausea methotrexate Adverse Reaction (Verified 06/15/24 10:06) Nausea NSAIDS (Non-Steroidal Anti-Inflamma Adverse Reaction (Verified 06/15/24 10:06) Nausea Sulfa (Sulfonamide Antibiotics) Adverse Reaction (Verified 06/15/24 10:06) Nausea Medications ???Medication ???Instructions ???Recorded ???Confirmed ???Type cyanocobalamin (vitamin B-12) 1,000 mcg PO DAILY SUPPLEMENT 02/06/17 06/15/24 History 1,000 mcg tablet aspirin 81 mg tablet,delayed 81 mg PO QDAY heart health 10/02/17 06/15/24 History release (Adult Low Dose Aspirin) calcium carb-vit D3-minerals 600 1 tab PO QDAY vitamin 10/02/17 06/15/24 History mg calcium-400 unit tablet multivitamin 1 tab PO DAILY vitamin 02/02/19 06/15/24 History ascorbic acid (vitamin C) 1,000 mg 1 g PO BID vitamin 02/10/21 06/15/24 History tablet acetaminophen 650 mg 1,300 mg PO Q12H arthritis 02/22/22 06/15/24 History tablet,extended release albuterol sulfate 90 mcg/actuation 2 puff inhalation Q4H PRN 05/17/22 06/15/24 Rx aerosol inhaler shortness of breath or wheezing #8.5 grams flaxseed oil 1,000 mg capsule 1,000 mg PO DAILY 03/12/23 06/15/24 History metoprolol succinate 50 mg 50 mg PO QHS BLOOD PRESSURE #90 11/01/23 06/15/24 Rx tablet,extended release 24 hr tabs losartan 50 mg-hydrochlorothiazide 1 tab PO BID #180 tabs 11/18/23 06/15/24 Rx 12.5 mg tablet pravastatin 40 mg tablet See Rx Instructions .Route 11/18/23 06/15/24 Rx .COMPLEX #90 tabs trazodone 100 mg tablet 50 mg (1/2 x 100 mg) PO QHS PRN 01/20/24 06/15/24 Rx insomnia #90 tabs fluticasone furoate 200 1 inh inhalation DAILY #3 ea 01/22/24 06/15/24 Rx mcg-vilanterol 25 mcg/dose inhalation powder (Breo Ellipta) amlodipine 2.5 mg tablet 2.5 mg PO DAILY 03/17/24 06/15/24 History ferrous sulfate 325 mg (65 mg 325 mg PO DAILY 03/17/24 06/15/24 History iron) tablet Have you fallen in the past year?: No [facility] Medical History Wears hearing aid Wears glasses Alcohol use Low iron Restless legs Heartburn CPAP (continuous positive airway pressure) dependence Former smoker Shortness of breath on exertion Cardiology follow-up encounter History of stress test History of echocardiogram Sleep apnea Bereavement due to life event Bereavement counseling Generalized OA Diverticulitis 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 Nonrheumatic aortic (valve) stenosis Essential (primary) hypertension COVID-19 (08/31/20) Psoriatic arthritis Hyperlipidemia Surgical History History of cardiac catheterization History of colonoscopy History of coronary artery stent placement (03/02/22) History of left heart catheterization (03/14/17) History of shoulder surgery History of partial colectomy ( 2011) H/O aortic valve replacement (04/08/17) Family History Brother Heart disease AV replaced and CABG X 1 CAD (coronary artery disease) CABG x 1 w/ AVR Social History Smoking Status: Former smoker how long ago did patient quit smokin + years ago alcohol intake: current alcohol intake frequency: a few times a week Alcohol type: hard liquor substance use type: does not use caffeine: Yes Type: coffee Number of servings: 2 HPI RIGHT KNEE Details: This documentation accurately reflects the service provided and the decisions made by me, Dr. Obed Medina, DO 06/15/24 0809. Part of today???s visit was documented by Maria Luisa FAIR, acting as scribe. KARYN MULLER is a 78 year old F here today for 05/13/2024 office visit: Spoke with the patient about having osteoarthritis of her knee. Explained she might not have significant relief with the viscosupplementation injection as she has severe osteoarthritis in the lateral compartment. Patient might have more relief with a steroid injection. She may also be given the visco and steroid injection at the same time. Explained there is no injection that will regrow the cartilage in her knee. Spoke with the patient about the risks of the viscosupplementation injections. She can get the injections every 6 months is needed. Recommended the patient do formal physica (more content not included)... Normal [facility] Inital Evaluation (1) - PTon 05-20-2024 Inital Evaluation (1) - PT [facility] Physical Therapy [address] [place] [address] / REHABILITATION SERVICES INITIAL EVALUATION MR#: [id number] Acct: [id number] Name: KARYN MULLER Rep #: [id number] : 1945 78 From: Benny Bird DPT, OCS, CSCS Referring Dr.: Dr. Obed Medina, DO Status: R EG RCR Insurance: MEDICARE PART A B [facility] Patient's Visit Information Visit Information Visit Information: KARYN BENITEZ DUSH is a 78 year old F referred to Physical Therapy by Dr. Obed Medina DO with a diagnosis of R knee OA. Date of Evaluation: 05/20/24 Physical Therapist: Benny Bird, RODT, OCS, CSCS Visit Plan Frequency: 3x /Week Duration: 4-6 Weeks Plan: 3x/week for 4-6 weeks for pool based hip, core and knee strength and progression to I for membership/SCA pool as able. LB ROM should be included. Subjective Subjective: Not much cartilage in R knee. painful R knee for most of this year. Doing less this year because of the knee. Treated with steroid injections 3 months ago and they helped , may try gel treatments. Will have another steroid injection May due to a trip to [place] [employer] [place] in June. Previous injection helped 80% but it is wearing off. 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 some strenuous day. Enjoys walking as exercises . Steps are very difficult and she lives on one floor but has steps if she wants to use them. Has railings. L knee is healthy. Basic ADLS, all I. Winter in [facility] and it is flat down there. Last October walked 100 miles in 28 days and was comfortable at that time. Pain R knee: Pain Intensity (Out of 10): 4 Pain Intensity Range: 0, 4 and 6 Comment: worse with walking and being on it. Objective Objective: Walks with some mild R antalgia today and 4/10 pain. Trasnfers bed and chair I with UE, steps up with reciprocal and pulling B UE. descending L only with rails. Obvious valgus in R knee with ambualtion and at rest. reflexes 2/3 patella and achilles Sensation LE WNL to gross lgiht touch strength hips rotations 3 B, abd 3, ext 3, flexion 4- with opposite IR. knee strength ext 3+ R withn crepitus and 4 on L, HS is 3+ B. ankles 4- B. tenderness to touch at lateral joint line R knee. patella moves well. + R scour and crepitus with resisted extension. - varus and valgus testing. Balance/Special Test Scores Lower Extremity Functional Score: 30 Goals Goal 1:: I appropriate pool ex to minimize future problems( membership and FLA for winter) Goal Time Frame: 4-6 Weeks Goal 2:: Pain in R knee 2/10 at worst and 50% better Goal Time Frame: 4-6 Weeks Goal 3:: Steps reciprocal without pain Goal Time Frame: 4-6 Weeks Goal 4:: LEFS 50 Goal Time Frame: 4-6 Weeks Rehabilitation Potential Physical Therapy Diagnosis: R knee pain limiting comfortable function Rehabilitation Potential: Questionable Anticipated Interventions Patient/Client Instruction: Educate patient on: Condition and Plan of Care For the Purpose of:: To decrease pain, To improve nutrient delivery to tissue, To improve muscle performance and motor function and To improve gait and locomotor functions Therapeutic Exercise to Include: Strength training, Gait and locomotor training, In an aquatic setting, Passive ROM and Active ROM For the Purpose of:: To decrease pain, To increase ROM, To improve nutrient delivery to tissue and To increase tolerance to activity/condition/posi tion Text: Thank you for the opportunity to evaluate your patient. For Medicare and Medicare HMO plans, please review the plan of care and approve it. It will need to be FAXED BACK to us at [phone] for Medicare purposes. For Medicare only, by signing this I certify the plan of care. Please let me know if there are questions or concerns regarding this plan of care. Physician Signature: Date: 05/20/24 1622 CC: Dr. Obed Medina DO; Dr. Stacey Robledo MD EBG Signed Normal [facility] Orthopedic Visit Reporton Orthopedic Visit Report [facility] [address] [place] [address] [address] [place] [address] OFFICE VISIT Date of Service: 05/13/24 MR#: [id number] Acct: [id number] Name: KARYN MULLER Rep #: [id number] : 1945 Provider: Dr. Obed kat DO Age/Sex: 78/F [place] [facility] [place] Status: Signed Intake Vital Signs 03/17/24 11:37 05/01/24 09:54 Height 5 ft 3 in 5 ft 3 in Weight: 166 lb BMI 29.4 BP 111/59 L Blood Pressure Location Lt brachial Position Sitting Respiration 18 Pulse 58 L Pulse Source NIBP Intake Visit Reasons: RIGHT KNEE Is patient in pain?: Yes Allergies meloxicam Adverse Reaction (Verified 05/13/24 08:38) Nausea methotrexate Adverse Reaction (Verified 05/13/24 08:38) Nausea NSAIDS (Non-Steroidal Anti-Inflamma Adverse Reaction (Verified 05/13/24 08:38) Nausea Sulfa (Sulfonamide Antibiotics) Adverse Reaction (Verified 05/13/24 08:38) Nausea Medications ???Medication ???Instructions ???Recorded ???Confirmed ???Type cyanocobalamin (vitamin B-12) 1,000 mcg PO DAILY SUPPLEMENT 02/06/17 05/13/24 History 1,000 mcg tablet aspirin 81 mg tablet,delayed 81 mg PO QDAY heart health 10/02/17 05/13/24 History release (Adult Low Dose Aspirin) calcium carb-vit D3-minerals 600 1 tab PO QDAY vitamin 10/02/17 05/13/24 History mg calcium-400 unit tablet multivitamin 1 tab PO DAILY vitamin 02/02/19 05/13/24 History ascorbic acid (vitamin C) 1,000 mg 1 g PO BID vitamin 02/10/21 05/13/24 History tablet acetaminophen 650 mg 1,300 mg PO Q12H arthritis 02/22/22 05/13/24 History tablet,extended release albuterol sulfate 90 mcg/actuation 2 puff inhalation Q4H PRN 05/17/22 05/13/24 Rx aerosol inhaler shortness of breath or wheezing #8.5 grams flaxseed oil 1,000 mg capsule 1,000 mg PO DAILY 03/12/23 05/13/24 History metoprolol succinate 50 mg 50 mg PO QHS BLOOD PRESSURE #90 11/01/23 05/13/24 Rx tablet,extended release 24 hr tabs losartan 50 mg-hydrochlorothiazide 1 tab PO BID #180 tabs 11/18/23 05/13/24 Rx 12.5 mg tablet pravastatin 40 mg tablet See Rx Instructions .Route 11/18/23 05/13/24 Rx .COMPLEX #90 tabs trazodone 100 mg tablet 50 mg (1/2 x 100 mg) PO QHS PRN 01/20/24 05/13/24 Rx insomnia #90 tabs fluticasone furoate 200 1 inh inhalation DAILY #3 ea 01/22/24 05/13/24 Rx mcg-vilanterol 25 mcg/dose inhalation powder (Breo Ellipta) amlodipine 2.5 mg tablet 2.5 mg PO DAILY 03/17/24 05/13/24 History ferrous sulfate 325 mg (65 mg 325 mg PO DAILY 03/17/24 05/13/24 History iron) tablet Have you fallen in the past year?: No PFSH Medical History Wears hearing aid Wears glasses Alcohol use Low iron Restless legs Heartburn CPAP (continuous positive airway pressure) dependence Former smoker Shortness of breath on exertion Cardiology follow-up encounter History of stress test History of echocardiogram Sleep apnea Bereavement due to life event Bereavement counseling Generalized OA Diverticulitis 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 Nonrheumatic aortic (valve) stenosis Essential (primary) hypertension COVID-19 (08/31/20) Psoriatic arthritis Hyperlipidemia Surgical History History of cardiac catheterization History of colonoscopy History of coronary artery stent placement (03/02/22) History of left heart catheterization (03/14/17) History of shoulder surgery History of partial colectomy ( 2011) H/O aortic valve replacement (04/08/17) Family History Brother Heart disease AV replaced and CABG X 1 CAD (coronary artery disease) CABG x 1 w/ AVR Social History Smoking Status: Former smoker how long ago did patient quit smokin + years ago alcohol intake: current alcohol intake frequency: a few times a week Alcohol type: hard liquor substance use type: does not use caffeine: Yes Type: coffee Number of servings: 2 HPI RIGHT KNEE Details: This documentation accurately reflects the service provided and the decisions made by me, Dr. Obed Medina, DO 05/13/24 0738. Part of today???s visit was documented by [ ], acting as scribe. KARYN DUSH is a 78 year old F here today for her right knee. Last office visit 02/17/2024: Patient had right knee and right bursa steroid injection Patient had a bursa injection and knee injection last visit which were helpful, and they continue to be helpful. She has a knee brace which she wears and it is helpful. She notes that she was approved for the gel injections and would like more information about them. She is unsure where her pain is as it is hard to place. Patient notes tere (more content not included)... Normal [facility] Echo Completeon 04-30-[address] [facility] [address] [place] [address] Echo Complete 04/30/24 1417 MR#: [id number] Acct: [id number] Name: KARYN MULLER Rep #: [id number] : 1945 78 From: Yong Mora MD Attending Dr: SHAD MurdockC Status: REG CLI Ordering Dr: Paul Goodman NP [employer] SCI[employer]ES PROFESSOR-C Date: 04/30/24 Location: [facility] [place] Sex: F C Admitted: Reason For Study: Prosthetic Heart Valve Procedure This was a 2D Doppler, Color Flow transthoracic echocardiogram. Exam performed in department. Left Ventricle Normal LV size. Left ventricular systolic function is normal. The left ventricular ejection fraction is 60 %. Stage 1 diastolic dysfunction. No regional wall motion abnormalities noted. Right Ventricle Normal RV size. Normal systolic function. Atria Normal left atrium. Normal right atrium. Mitral Valve Normal mitral valve. Tricuspid Valve Normal tricuspid valve. Mild (1+) tricuspid valve insufficiency. Pulmonary artery systolic pressure is 33 mmHg. Aortic Valve Peak aortic valve gradient 28 mmHg. Mean aortic valve gradient 15 mmHg. Bioprosthetic aortic valve. Pulmonic Valve Normal pulmonic valve. Great Vessels Normal aortic root. The pulmonary artery is normal size. Inferior vena cava collapse with respiration. Pericardium/Pleural No pericardial effusion. MMode/2D Measurements Calculations LVIDd: 3.9 cm IVSd: 1.2 cm LVOT diam: 1.9 cm LVIDs: 2.5 cm LVPWd: 1.0 cm LVOT area: 2.8 cm2 RVDd: 3.4 cm FS: 35.8 % Ao root diam: 3.3 cm LAV(MOD-bp): 53.7 ml LA A4 area: 20.0 cm2 LA dimension: 4.2 cm LAV(MOD-bp) Indexed: 30.5 ml/m2 LAV(MOD-sp2): 49.6 ml LAV(MOD-sp4): 56.1 ml RA A4 area: 16.4 cm2 Time Measurements MV dec time: 0.32 sec Doppler Measurements Calculations MV E max diogo: 101.4 cm/sec Lat Peak E' Diogo: 11.0 cm/sec Med Peak E' Diogo: 5.6 cm/sec MV A max diogo: 111.8 cm/sec E/E' lat: 9.2 E/E' med: 18.0 MV E/A: 0.91 MV V2 max: 119.3 cm/sec MV P1/2t max diogo: 100.7 cm/sec Ao V2 max: 267.0 cm/sec MV max P.7 mmHg MV P1/2t: 104.8 msec Ao max P.5 mmHg MV V2 mean: 58.7 cm/sec MV dec slope: 281.3 cm/sec2 Ao V2 mean: 185.2 cm/sec MV mean P.7 mmHg Ao mean P.3 mmHg MV V2 VTI: 42.1 cm MVA(P1/2t): 2.1 cm2 Ao V2 VTI: 63.4 cm MVA(VTI): 2.6 cm2 AV (velocity ratio): 0.60 SACHIN(I,D): 1.7 cm2 SACHIN(V,D): 1.6 cm2 LV V1 max: 151.4 cm/sec SV(LVOT): 107.6 ml PA V2 max: 94.0 cm/sec LV V1 max P.2 mmHg PA max PG (full): 0.52 mmHg LV V1 mean P.7 mmHg LV V1 mean: 114.7 cm/sec LV V1 VTI: 37.8 cm TR max diogo: 272.4 cm/sec TR max P.7 mmHg ECHO/Echo Complete Interpretation Summary Normal LV size. Left ventricular systolic function is normal. The left ventricular ejection fraction is 60 %. Bioprosthetic aortic valve. Mean aortic valve gradient 15 mmHg. Stage 1 diastolic dysfunction. Ordering Physician: Paul Goodman Referring Physician: Stacey Robledo M.D. Performed By: Desmond Jaquez and Student 05/01/24 110 Date Yong Mora MD CC: ROE Goodman; Dr. Stacey Robledo MD Date Dictated: 04/30/241416 Date Transcribed: 05/01/241100 Marketing Automation Analyst: Signed Normal [facility] Absolute lymphocyte countOrd ered By: Stacey Robledo on 02-03-2024 Lymphocytes Auto (Unsp spec) [#/Vol] 1.37 10*3/uL 0.83-4.[address] [facility] Automated lymphocyte count a s percentage of total leukocytesOrdered By: Stacey Robledo on 02-03-2024 Lymphocytes/100 WBC Auto (Unsp spec) 20.0 % 19-[address] [facility] Basophil percentageOrdered B y: Stacey Robledo on 02-03-2024 Basophils/100 WBC (Bld) 0.4 % 0-[address] [facility] Bilirubin [Mass/Vol] 0.40 mg/dL 0.20-1.00 [facility] Comment on above: For patients on eltr ombopag therapy, use of Dimension [place] TBIL is not recommended. Chloride [Moles/Vol] 98 mmol/L 98-107 [facility] Cholesterol [Mass/Vol] 176 mg/dL <[address] [facility] Comment on above: <200 mg/dL Desirable 200-240 mg/dL Borderline >240 mg/dL High Risk Eosinophils/100 WBC (Bld) 3.6 % 0-[address] [facility] Glucose [Mass/Vol] 141 mg/dL 74-106 [facility] Comment on above: Fasting Glucose resu lt greater than or equal to 126 mg/dL suggests DIABETES MELLITUS per A.D.A. criteria. Hemoglobin (Bld) [Mass/Vol] 12.4 g/dL 12.0-15.[address] [facility] Monocytes/100 WBC (Bld) 10.6 % 0-[address] [facility] Neutrophils (Bld) [#/Vol] 4.5 10*3/uL 2.0-7.[address] [facility] Neutrophils/100 WBC (Bld) 65.0 % 47-[address] [facility] Potassium [Moles/Vol] 3.8 mmol/L 3.5-5.1 [facility] Protein [Mass/Vol] 7.1 g/dL 6.4-8.2 [facility] Sodium [Moles/Vol] 133 mmol/L 136-145 [facility] Triglyceride [Mass/Vol] 151 mg/dL <[address] [facility] Comment on above: The drugs N-Acetylcy steine and Metamizole may falsely depress this assay.Serum Triglycerides Reference Interval Normal <150 mg/dL Borderline high 150 - 199 mg/dL High 200 - 499 mg/dL Very High > or = 500 mg/dL WBC (Bld) [#/Vol] 6.9 10*3/uL 4.4-11.0 [facility] Determination of erythrocyte mean corpuscular volume (MCV)Ordered By: Stacey Robledo on 02-03-2024 MCV (RBC) [Entitic vol] 92.6 fL 81-[address] [facility] Erythrocyte distribution wid th ratioOrdered By: Stacey Robledo on 02-03-2024 Erythrocyte distribution width (RBC) [Ratio] 13.1 % 11.6-14.[address] [facility] Erythrocyte distribution wid th standard deviationOrdered By: Stacey Robledo on 02-03-2024 Erythrocyte distribution width (RBC) [Entitic vol] 44.0 fL 35.1-43.[address] [facility] Hematocrit Auto (Bld) [Volum e fraction]Ordered By: Stacey Robledo on 02-03-2024 Hematocrit (Bld) [Volume fraction] 37.7 % 37-[address] [facility] Immature granulocytes/100 WB C Auto (Bld)Ordered By: Stacey Robledo on 02-03-2024 Immature granulocytes/100 WBC (Bld) 0.400 % 0.0-0.[address] [facility] Comment on above: IG% - Immature Granu locytes (promyelocytes, myelocytes and metamyelocytes) > 1% indicates that a LEFT SHIFT is Present. Laboratory - Chemistry and C hemistry - challengeOrdered By: Stacey Robledo on 02-03-2024 Albumin/Globulin [Mass ratio] 1.1 {ratio} 0.9-2.[address] [facility] ALP [Catalytic activity/Vol] 67 U/L 45-[address] [facility] ALT [Catalytic activity/Vol] 26 U/L 13-[address] [facility] Cholesterol in HDL [Mass/Vol] 60 mg/dL >[address] [facility] Comment on above: The drugs N-Acetylcy steine and Metamizole may falsely depress this assay. Reference Range HDL <40 mg/dL Low HDL Cholesterol HDL >or= 60 mg/dL High HDL Cholesterol Cholesterol in LDL [Mass/Vol] 86 mg/dL 0-[address] [facility] CO2 [Moles/Vol] 26.0 mmol/L 21.0-32.[address] [facility] Globulin (S) [Mass/Vol] 3.4 g/dL 2.2-4.[address] [facility] Urea nitrogen/Creatinine [Mass ratio] 22.7 mg/mg 10-[address] [facility] Laboratory - Hematology and Cell countsOrdered By: Stacey Robledo on 02-03-2024 MCH (RBC) [Entitic mass] 30.5 pg 27.0-32.[address] [facility] MCHC (RBC) [Mass/Vol] 32.9 g/dL 32-36 [facility] Nucleated RBC/100 WBC (Bld) [Ratio] 0 % 0-[address] [facility] Platelet mean volume (Bld) [Entitic vol] 8.8 fL 6.2-12.[address] [facility] Platelets (Bld) [#/Vol] 292 10*3/uL 150-[address] [facility] No Panel InformationOrdered By: Stacey Robledo on 02-03-2024 Estimated GFR (MDRD) Amer 90 mL/min >[address] [facility] Comment on above: GFR Calc Estimated GFR (MDRD) Non-Af Amer 74 mL/min >[address] [facility] Comment on above: Non- GFR Calc Vitamin D 25-Hydroxy 33.6 ng/mL [facility] Comment on above: Vitamin D 25(OH) Sta tus Range Deficiency <20 ng/mL (50nmol/L) Insufficiency 20 - 30 ng/mL (50 - 75 nmol/L) Sufficiency 30 - 100 ng/mL (75 - 250 nmol/L) Toxicity >100 ng/mL (>250 nmol/L) VLDL Cholesterol 30 mg/dL 5-[address] [facility] RBC Auto (Bld) [#/Vol]Ordere d By: Stacey Robledo on 02-03-2024 RBC (Bld) [#/Vol] 4.07 10*6/uL 4.2-5.4 [facility] Serum or plasma calcium loretta urement (mass/volume)Ordered By: Stacey Robledo on 02-03-2024 Calcium [Mass/Vol] 9.2 mg/dL 8.5-10.1 [facility] Serum or plasma creatinine m easurement (mass/volume)Ordered By: Stacey Robledo on 02-03-2024 Creatinine [Mass/Vol] 0.79 mg/dL 0.55-1.02 [facility] Comment on above: The validity of the calculated GFR & GFRAA in patients over 70 years has not been determined. Clinical correlation is essential. Serum or plasma thyroid stim ulating hormone (TSH) measurement (units/volume)Ordered By: Stacey Robledo on 02-03-2024 TSH Qn 1.86 uIU/mL 0.358-3.[address] [facility] Serum or plasma urea nitroge n measurement (mass/volume)Ordered By: Stacey Robledo on 02-03-2024 Urea nitrogen [Mass/Vol] 18 mg/dL 7-[address] [facility] Thin prep Papanicolaou smear with manual screeningOrdered By: Stacey Robledo on 02-03-2024 Thin prep Papanicolaou smear with manual screening 3.7 g/dL 3.2-5.[address] [facility] Thin prep Papanicolaou smear with manual screening 18 U/L 15-[address] [facility] Thin prep Papanicolaou smear with manual screening 9 5-[address] [facility] Whole blood hemoglobin A1c/t otal hemoglobin ratio (mass fraction)Ordered By: Stacey Robledo on 02-03-2024 HbA1c (Bld) [Mass fraction] 6.6 % 3.8-5.[address] [facility] Comment on above: Normal < 5.7 % Predi abetic 5.7 - 6.4 % Diabetic >or= 6.5 % Please note range changes. Absolute lymphocyte countOrd ered By: Rose Díaz on 01-31-2024 Lymphocytes Auto (Unsp spec) [#/Vol] 1.29 10*3/uL 0.83-4.[address] [facility] Automated lymphocyte count a s percentage of total leukocytesOrdered By: Rose Díaz on 01-31-2024 Lymphocytes/100 WBC Auto (Unsp spec) 19.3 % 19-[address] [facility] Basophil percentageOrdered B y: Rose Díaz on 01-31-2024 Basophils/100 WBC (Bld) 0.6 % 0-[address] [facility] Chloride [Moles/Vol] 100 mmol/L 98-107 [facility] Eosinophils/100 WBC (Bld) 4.2 % 0-[address] [facility] Glucose [Mass/Vol] 123 mg/dL 74-106 [facility] Comment on above: Fasting Glucose resu lt from 100 to 125 mg/dL suggests IMPAIRED HOMEOSTASIS per A.D.A. criteria. Hemoglobin (Bld) [Mass/Vol] 11.9 g/dL 12.0-15.[address] [facility] Monocytes/100 WBC (Bld) 12.0 % 0-[address] [facility] Neutrophils (Bld) [#/Vol] 4.2 10*3/uL 2.0-7.[address] [facility] Neutrophils/100 WBC (Bld) 63.3 % 47-[address] [facility] Potassium [Moles/Vol] 3.7 mmol/L 3.5-5.1 [facility] Sodium [Moles/Vol] 134 mmol/L 136-145 [facility] WBC (Bld) [#/Vol] 6.7 10*3/uL 4.4-11.0 [facility] Determination of erythrocyte mean corpuscular volume (MCV)Ordered By: Rose Díaz on 01-31-2024 MCV (RBC) [Entitic vol] 92.5 fL 81-[address] [facility] Erythrocyte distribution wid th ratioOrdered By: Rose Díaz on 01-31-2024 Erythrocyte distribution width (RBC) [Ratio] 13.1 % 11.6-14.[address] [facility] Erythrocyte distribution wid th standard deviationOrdered By: Rose Díaz on 01-31-2024 Erythrocyte distribution width (RBC) [Entitic vol] 44.0 fL 35.1-43.[address] [facility] Hematocrit Auto (Bld) [Volum e fraction]Ordered By: Rose Díaz on 01-31-2024 Hematocrit (Bld) [Volume fraction] 35.9 % 37-[address] [facility] Immature granulocytes/100 WB C Auto (Bld)Ordered By: Rose Díaz on 01-31-2024 Immature granulocytes/100 WBC (Bld) 0.600 % 0.0-0.[address] [facility] Comment on above: IG% - Immature Granu locytes (promyelocytes, myelocytes and metamyelocytes) > 1% indicates that a LEFT SHIFT is Present. Laboratory - Chemistry and C hemistry - challengeOrdered By: Rose Díaz on 01-31-2024 CO2 [Moles/Vol] 29.0 mmol/L 21.0-32.[address] [facility] Urea nitrogen/Creatinine [Mass ratio] 24.7 mg/mg 10-[address] [facility] Laboratory - Hematology and Cell countsOrdered By: Rose Díaz on 01-31-2024 MCH (RBC) [Entitic mass] 30.7 pg 27.0-32.[address] [facility] MCHC (RBC) [Mass/Vol] 33.1 g/dL 32-36 [facility] Nucleated RBC/100 WBC (Bld) [Ratio] 0 % 0-[address] [facility] Platelet mean volume (Bld) [Entitic vol] 9.2 fL 6.2-12.[address] [facility] Platelets (Bld) [#/Vol] 301 10*3/uL 150-[address] [facility] No Panel InformationOrdered By: Rose Díaz on 01-31-2024 Estimated GFR (MDRD) Amer 113 mL/min >[address] [facility] Comment on above: GFR Calc Estimated GFR (MDRD) Non-Af Amer 94 mL/min >[address] [facility] Comment on above: Non- GFR Calc RBC Auto (Bld) [#/Vol]Ordere d By: Rose Díaz on 01-31-2024 RBC (Bld) [#/Vol] 3.88 10*6/uL 4.2-5.4 [facility] Serum or plasma calcium loretta urement (mass/volume)Ordered By: Rose Díaz on 01-31-2024 Calcium [Mass/Vol] 9.8 mg/dL 8.5-10.1 [facility] Serum or plasma creatinine m easurement (mass/volume)Ordered By: Rose Díaz on 01-31-2024 Creatinine [Mass/Vol] 0.65 mg/dL 0.55-1.02 [facility] Comment on above: The validity of the calculated GFR & GFRAA in patients over 70 years has not been determined. Clinical correlation is essential. Serum or plasma thyroid stim ulating hormone (TSH) measurement (units/volume)Ordered By: Rose Díaz on 01-31-2024 TSH Qn 1.48 uIU/mL 0.358-3.[address] [facility] Serum or plasma urea nitroge n measurement (mass/volume)Ordered By: Rose Díaz on 01-31-2024 Urea nitrogen [Mass/Vol] 16 mg/dL 7-[address] [facility] Thin prep Papanicolaou smear with manual screeningOrdered By: Rose Díaz on 01-31-2024 Thin prep Papanicolaou smear with manual screening 5 5-[address] [facility] Basophil percentageon 2021 Bilirubin [Mass/Vol] 0.40 mg/dL 0.20-1.00 [facility] Work Phone: Comment on above: For patients on eltr ombopag therapy, use of Dimension [place] TBIL is not recommended. Cholesterol [Mass/Vol] 171 mg/dL <[address] [facility] Work Phone: Comment on above: <200 mg/dL Desirable 200-240 mg/dL Borderline >240 mg/dL High Risk Protein [Mass/Vol] 7.2 g/dL 6.4-8.2 [facility] Work Phone: Triglyceride [Mass/Vol] 141 mg/dL <[address] [facility] Work Phone: Comment on above: The drugs N-Acetylcy steine and Metamizole may falsely depress this assay.Serum Triglycerides Reference Interval Normal <150 mg/dL Borderline high 150 - 199 mg/dL High 200 - 499 mg/dL Very High > or = 500 mg/dL Direct bilirubinon Bilirubin.direct [Mass/Vol] 0.13 mg/dL 0.00-0.[address] [facility] Work Phone: Laboratory - Chemistry and C hemistry - challengeon 03-19-2022 ALP [Catalytic activity/Vol] 62 U/L 45-[address] [facility] Work Phone: [phone] ALT [Catalytic activity/Vol] 28 U/L 13-[address] [facility] Work Phone: [phone] Globulin (S) [Mass/Vol] 3.4 g/dL 2.2-4.[address] [facility] Work Phone: [phone] Serum or plasma albumin loretta urement (mass/volume)on 03-19-2022 Albumin [Mass/Vol] 3.8 g/dL 3.2-5.0 [facility] Work Phone: Serum or plasma cholesterol in HDL measurement (mass/volume)on 03-19-2022 Cholesterol in HDL [Mass/Vol] 67 mg/dL >[address] [facility] Work Phone: Comment on above: The drugs N-Acetylcy steine and Metamizole may falsely depress this assay. Reference Range HDL <40 mg/dL Low HDL Cholesterol HDL >or= 60 mg/dL High HDL Cholesterol Serum or plasma cholesterol in VLDL measurement (mass/volume)on 03-19-2022 Cholesterol in VLDL [Mass/Vol] 28 mg/dL 5-[address] [facility] Work Phone: Serum or plasma low density lipoprotein (LDL) cholesterol measurement (mass/volume)on 03-19-2022 Cholesterol in LDL [Mass/Vol] 76 mg/dL 0-[address] [facility] Work Phone: [phone] Thin prep Papanicolaou smear with manual screeningon 03-19-2022 Thin prep Papanicolaou smear with manual screening 18 U/L 15-[address] [facility] Work Phone: [phone] Basophil percentageon 2021 Bilirubin [Mass/Vol] 0.30 mg/dL 0.20-1.00 [facility] Work Phone: Comment on above: For patients on eltr ombopag therapy, use of Dimension [place] TBIL is not recommended. Chloride [Moles/Vol] 101 mmol/L 98-107 [facility] Work Phone: [phone] Glucose [Mass/Vol] 129 mg/dL 74-106 [facility] Work Phone: [phone] Comment on above: Fasting Glucose resu lt greater than or equal to 126 mg/dL suggests DIABETES MELLITUS per A.D.A. criteria. Potassium [Moles/Vol] 3.7 mmol/L 3.5-5.1 [facility] Work Phone: [phone] Protein [Mass/Vol] 6.8 g/dL 6.4-8.2 [facility] Work [facility]: [phone] Sodium [Moles/Vol] 136 mmol/L 136-145 [facility] Work Phone: [phone] WBC (Bld) [#/Vol] 7.8 10*3/uL 4.4-11.0 [facility] Work Phone: [phone] Blood erythrocytes count (nu mber/volume)on 03-03-2022 RBC (Bld) [#/Vol] 3.99 10*6/uL 4.2-5.4 [facility] Work Phone: [phone] Blood hemoglobin measurement (mass/volume)on 03-03-2022 Hemoglobin (Bld) [Mass/Vol] 12.4 g/dL 12.0-15.[address] [facility] Work Phone: [phone] Blood platelet mean volumeon 03-03-2022 Platelet mean volume (Bld) [Entitic vol] 8.9 fL 6.2-12.[address] [facility] Work Phone: [phone] Determination of erythrocyte mean corpuscular volume (MCV)on 03-03-2022 MCV (RBC) [Entitic vol] 94.7 fL 81-[address] [facility] Work Phone: [phone] Hematocrit Auto (Bld) [Volum e fraction]on 03-03-2022 Hematocrit (Bld) [Volume fraction] 37.8 % 37-[address] [facility] Work Phone: [phone] Laboratory - Chemistry and C hemistry - challengeon 03-03-2022 ALP [Catalytic activity/Vol] 50 U/L 45-[address] [facility] Work Phone: [phone] ALT [Catalytic activity/Vol] 29 U/L 13-[address] [facility] Work Phone: [phone] CO2 [Moles/Vol] 28.0 mmol/L 21.0-32.[address] [facility] Work Phone: [phone] Globulin (S) [Mass/Vol] 3.3 g/dL 2.2-4.[address] [facility] Work Phone: [phone] Urea nitrogen/Creatinine [Mass ratio] 24.3 mg/mg 10-[address] [facility] Work Phone: [phone] Laboratory - Hematology and Cell countson 03-03-2022 Erythrocyte distribution width (RBC) [Entitic vol] 43.3 fL 35.1-43.[address] [facility] Work Phone: [phone] Erythrocyte distribution width (RBC) [Ratio] 12.4 % 11.6-14.[address] [facility] Work Phone: [phone] MCH (RBC) [Entitic mass] 31.1 pg 27.0-32.[address] [facility] Work Phone: [phone] MCHC Auto (RBC) [Mass/Vol]on 03-03-2022 MCHC (RBC) [Mass/Vol] 32.8 g/dL 32-36 [facility] Work Phone: [phone] Panel Informationon 03-03 Estimated Creatinine Clearance Calc 38.35 ml/min [facility] Work Phone: [phone] Estimated GFR (MDRD) Amer 104 mL/min >[address] [facility] Work Phone: [phone] Comment on above: GFR Calc Estimated GFR (MDRD) Non-Af Amer 86 mL/min >[address] [facility] Work Phone: [phone] Comment on above: Non- GFR Calc Platelets bldon 03-03-2022 Platelets (Bld) [#/Vol] 282 10*3/uL 150-[address] [facility] Work Phone: [phone] Serum or plasma albumin loretta urement (mass/volume)on 03-03-2022 Albumin [Mass/Vol] 3.5 g/dL 3.2-5.0 [facility] Work Phone: [phone] Serum or plasma albumin/glob ulin mass ratioon 03-03-2022 Albumin/Globulin [Mass ratio] 1.1 {ratio} 0.9-2.[address] [facility] Work Phone: [phone] Serum or plasma calcium loretta urement (mass/volume)on 03-03-2022 Calcium [Mass/Vol] 9.0 mg/dL 8.5-10.1 [facility] Work Phone: [phone] Serum or plasma creatinine m easurement (mass/volume)on 03-03-2022 Creatinine [Mass/Vol] 0.70 mg/dL 0.55-1.02 [facility] Work Phone: Comment on above: The validity of the calculated GFR & GFRAA in patients over 70 years has not been determined. Clinical correlation is essential. Serum or plasma urea nitroge n measurement (mass/volume)on 03-03-2022 Urea nitrogen [Mass/Vol] 17 mg/dL 7-[address] [facility] Work Phone: [phone] Thin prep Papanicolaou smear with manual screeningon 03-03-2022 Thin prep Papanicolaou smear with manual screening 18 U/L 15-[address] [facility] Work Phone: [phone] Thin prep Papanicolaou smear with manual screening 7 5-[address] [facility] Work Phone: [phone] Absolute lymphocyte counton 02-22-2022 Lymphocytes Auto (Unsp spec) [#/Vol] 1.39 10*3/uL 0.83-4.[address] [facility] Work Phone: Basophil percentageon 2021 Basophils/100 WBC (Bld) 0.4 % 0-[address] [facility] Work Phone: Chloride [Moles/Vol] 98 mmol/L 98-107 [facility] Work Phone: [phone] Eosinophils/100 WBC (Bld) 2.3 % 0-[address] [facility] Work Phone: Glucose [Mass/Vol] 112 mg/dL 74-106 [facility] Work Phone: Comment on above: Fasting Glucose resu lt from 100 to 125 mg/dL suggests IMPAIRED HOMEOSTASIS per A.D.A. criteria. Neutrophils (Bld) [#/Vol] 4.8 10*3/uL 2.0-7.[address] [facility] Work Phone: Neutrophils/100 WBC (Bld) 67.4 % 47-[address] [facility] Work Phone: [phone] Potassium [Moles/Vol] 3.6 mmol/L 3.5-5.1 [facility] Work Phone: [phone] Sodium [Moles/Vol] 135 mmol/L 136-145 [facility] Work Phone: [phone] WBC (Bld) [#/Vol] 7.1 10*3/uL 4.4-11.0 [facility] Work Phone: Blood erythrocytes count (nu mber/volume)on 02-22-2022 RBC (Bld) [#/Vol] 4.19 10*6/uL 4.2-5.4 [facility] Work Phone: Blood hemoglobin measurement (mass/volume)on 02-22-2022 Hemoglobin (Bld) [Mass/Vol] 13.2 g/dL 12.0-15.[address] [facility] Work Phone: Blood lymphocytes/100 leukoc yteson 02-22-2022 Lymphocytes/100 WBC (Bld) 19.7 % 19-[address] [facility] Work Phone: [phone] Blood monocytes/100 leukocyt eson 02-22-2022 Monocytes/100 WBC (Bld) 9.6 % 0-[address] [facility] Work Phone: Blood platelet mean volumeon 02-22-2022 Platelet mean volume (Bld) [Entitic vol] 9.0 fL 6.2-12.[address] [facility] Work Phone: Determination of erythrocyte mean corpuscular volume (MCV)on 02-22-2022 MCV (RBC) [Entitic vol] 93.8 fL 81-[address] [facility] Work Phone: [phone] Hematocrit Auto (Bld) [Volum e fraction]on 02-22-2022 Hematocrit (Bld) [Volume fraction] 39.3 % 37-[address] [facility] Work Phone: [phone] Laboratory - Chemistry and C hemistry - challengeon 02-22-2022 CO2 [Moles/Vol] 30.0 mmol/L 21.0-32.[address] [facility] Work Phone: [phone] Urea nitrogen/Creatinine [Mass ratio] 29.6 mg/mg 10-[address] [facility] Work Phone: [phone] Laboratory - Hematology and Cell countson 02-22-2022 Erythrocyte distribution width (RBC) [Entitic vol] 44.0 fL 35.1-43.[address] [facility] Work Phone: [phone] Erythrocyte distribution width (RBC) [Ratio] 12.7 % 11.6-14.[address] [facility] Work Phone: [phone] Immature granulocytes/100 WBC (Bld) 0.600 % 0.0-0.[address] [facility] Work Phone: [phone] Comment on above: IG% - Immature Granu locytes (promyelocytes, myelocytes and metamyelocytes) > 1% indicates that a LEFT SHIFT is Present. MCH (RBC) [Entitic mass] 31.5 pg 27.0-32.[address] [facility] Work Phone: [phone] Nucleated RBC/100 WBC (Bld) [Ratio] 0 % 0-[address] [facility] Work Phone: [phone] MCHC Auto (RBC) [Mass/Vol]on 02-22-2022 MCHC (RBC) [Mass/Vol] 33.6 g/dL 32-36 [facility] Work Phone: [phone] Panel Informationon 02-22 Estimated GFR (MDRD) Amer 92 mL/min >[address] [facility] Work Phone: Comment on above: GFR Calc Estimated GFR (MDRD) Non-Af Amer 76 mL/min >[address] [facility] Work Phone: Comment on above: Non- GFR Calc Platelets bldon 02-22-2022 Platelets (Bld) [#/Vol] 318 10*3/uL 150-[address] [facility] Work Phone: Serum or plasma calcium loretta urement (mass/volume)on 02-22-2022 Calcium [Mass/Vol] 10.0 mg/dL 8.5-10.1 [facility] Work Phone: Serum or plasma creatinine m easurement (mass/volume)on 02-22-2022 Creatinine [Mass/Vol] 0.78 mg/dL 0.55-1.02 [facility] Work Phone: Comment on above: The validity of the calculated GFR & GFRAA in patients over 70 years has not been determined. Clinical correlation is essential. Serum or plasma urea nitroge n measurement (mass/volume)on 02-22-2022 Urea nitrogen [Mass/Vol] 23 mg/dL 7-[address] [facility] Work Phone: Thin prep Papanicolaou smear with manual screeningon 02-22-2022 Thin prep Papanicolaou smear with manual screening 7 5-[address] 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 During your visit today, we recorded the following information about you: Maria M Alcantara LPN 04/04/2021 8:06 AM Signed Patient has been identified by name and date of : Yes Pharmacy phones for refill(s): Pending Prescriptions Disp Refills METOPROLOL SUCCINATE ER 50 MG TABLET,EXTENDED RELEASE 24 HR 90 tablet 0 Sig: TAKE 1 TABLET BY MOUTH EVERY DAY MICHAEL: Yes Date of last office visit in primary care: 10/07/20 Last 2 Encounter Wt Readings: Date: Wt: 05/23/2020 70.3 kg (155 lb) 05/18/2019 70.3 kg (155 lb) Previous labs/tests for medication: Blood Pressure: BUN (mg/dL) Date Value 10/04/2020 17 Sodium (mmol/L) Date Value 10/04/2020 137 Last 1 Encounter BP Readings: Date: BP: 05/23/2020 99/63 Please advise. Thank you. Maria M Brewster APRN.DK DOMINGUEZ 04/04/2021 8:12 AM Signed The following approved medication requests have been transmitted electronically. Pending Prescriptions Disp Refills METOPROLOL SUCCINATE ER 50 MG TABLET,EXTENDED RELEASE 24 HR 90 tablet 0 Sig: TAKE 1 TABLET BY MOUTH EVERY DAY MICHAEL: Yes Wil Brewster APRN.DK DOMINGUEZ Allergies As of Date: 04/04/2021 Noted Allergy Reaction MELOXICAM 03/16/2009 6 - Diarrhea METHOTREXATE 05/17/2008 6 - Diarrhea NSAIDS (NON-STEROIDAL ANTI-INFLAM*05/17/2008 5 - Intolerance Comments: Aggravates colitis SULFABENZAMIDE 12/09/2007 6 - Diarrhea Date Reviewed: 10/07/2020 Reviewed by: Taryn Duque Ma - Fully Assessed Reason for Visit: Refill Request [94] Order(s):metoprolol succinate ER (TOPROL XL) 50 mg 24 hr tabletTAKE 1 TABLET BY MOUTH EVERY DAYDisp: 90 tabletRfl: 0 Prescriptions as of 04/04/2021 - metoprolol succinate ER (TOPROL XL) 50 mg 24 hr tablet TAKE 1 TABLET BY MOUTH EVERY DAY - pravastatin (PRAVACHOL) 40 mg tablet Take 1 tablet by mouth once daily. - zinc sulfate (ZINC-220) 220 (50) mg capsule Take 1 capsule by mouth once daily. - HYZAAR 50-12.5 mg per tablet TAKE 1 TABLET BY MOUTH TWICE A DAY - cholecalciferol, Vitamin D3, (VITAMIN D3) 1,250 mcg (50,000 unit) cap capsule Take 1 capsule by mouth one time a week. - predniSONE (DELTASONE) 10 mg tablet Take by mouth 4 tabs daily x 3 days, then 3 tabs x 3 days, 2 tabs x 3 days, then 1 tab x3 days with food. - melatonin 10 mg tab Take 10 mg by mouth once daily. - VITAMIN B COMPLEX ORAL Take by mouth once daily. - triamcinolone acetonide (KENALOG) 0.1 % cream Apply 1 application to affected area as needed. Apply sparingly to area for rash/itching. - Ascorbic Acid (VITAMIN C) 1,000 mg tablet Take 3 tablets twice daily - cyanocobalamin (VITAMIN B-12) 1,000 mcg Tab Take 1,000 mcg by mouth once daily. - CALCIUM CARBONATE (CALCIUM 300 ORAL) Take by mouth. - FLAXSEED OIL 1,000 MG CAP Take one(1) tablet two(2) times daily. - aspirin(ECOTRIN LOW STRENGTH 81 MG TAB) Take one(1) tablet daily. - acetaminophen(TYLENOL ARTHRITIS 650 MG TAB) Tkae 2 tablets in the morning AND 2 tablets in the evening. - MULTIVITAMIN TAB Take one(1) tablet daily. Problem List As Of Date 04/04/2021 Noted Resolved Loss of weight [R63.4] 12/09/2007 08/05/2013 Diarrhea [R19.7] 12/25/2007 08/05/2013 Acute gastritis without mention of hemorrhage [*01/26/2008 08/05/2013 Diaphragmatic hernia without mention of obstruc*01/26/2008 08/05/2013 Sciatica [M54.30] 01/07/2009 12/28/2016 Thoracic or lumbosacral neuritis or radiculitis*01/07/2009 07/05/2016 Neuralgia, neuritis, and radiculitis, unspecifi*01/07/2009 07/05/2016 Actinic Keratosis (Premalignant AK) [L57.0] 07/05/2010 08/05/2013 Solar lentigo [L81.4] 07/05/2010 08/12/2015 Seborrheic Keratosis [L82.1] 07/05/2010 08/12/2015 Actinic Damage//Sun-Damaged Skin [L57.8] 07/05/2010 08/12/2015 Psoriasis [L40.8] 07/05/2010 Irritated//Inflamed Seborrheic Keratoses [L82.0]07/05/2010 08/12/2015 Melanocytic nevus of trunk: Intradermal Nevi: b*07/05/2010 Diverticulitis [K57.92] 08/12/2015 Diverticulitis of colon [K57.32] 10/09/2011 07/05/2016 Hypertension goal BP (blood pressure) < 140/90 *06/22/2013 Lumbar radiculopathy [M54.16] 06/24/2013 07/05/2016 Degeneration of lumbar or lumbosacral intervert*06/04/2014 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 Normal [facility] OBSOLETEon 01-10-2021 OBSOLETE Refill (FAMPWS) KARYN MULLER ([id number]) 1945 F Date Time Provider Department 01/10/21 CEDORI MONTANO III During your visit today, we recorded the following information about you: Anais Saez RN, RN 01/10/2021 2:49 PM Signed Patient has been identified by name and date of : Yes Patient phones for refill(s): Pending Prescriptions Disp Refills METOPROLOL SUCCINATE ER 50 MG TABLET,EXTENDED RELEASE 24 HR 90 tablet Sig: Take 1 tablet by mouth once daily. MICHAEL: No Date of last office visit in primary care: 10/07/2020 Future Appointment: None Patient down in [place] and requesting refills to be sent to [facility]. Last 2 Encounter Wt Readings: Date: Wt: 05/23/2020 70.3 kg (155 lb) 05/18/2019 70.3 kg (155 lb) Previous labs/tests for medication: Blood Pressure: BUN (mg/dL) Date Value 10/04/2020 17 Sodium (mmol/L) Date Value 10/04/2020 137 Last 1 Encounter BP Readings: Date: BP: 05/23/2020 99/63 Liver Function: ALT (U/L) Date Value 10/04/2020 19 AST (U/L) Date Value 10/04/2020 23 Please advise. Thank you. Anais Saez, DOMINIC Brewster DNP.RESPIRATORY THERAPY TECHNICIAN, CABINET PROFESSIONAL.RESPIRATORY THERAPY TECHNICIAN 01/10/2021 4:35 PM Signed The following approved medication requests have been transmitted electronically. Pending Prescriptions Disp Refills METOPROLOL SUCCINATE ER 50 MG TABLET,EXTENDED RELEASE 24 HR 90 tablet 0 Sig: Take 1 tablet by mouth once daily. MICHAEL: No Wil Brewster DNP.CNP Allergies As of Date: 01/10/2021 Noted Allergy Reaction MELOXICAM 03/16/2009 6 - Diarrhea METHOTREXATE 05/17/2008 6 - Diarrhea NSAIDS (NON-STEROIDAL ANTI-INFLAM*05/17/2008 5 - Intolerance Comments: Aggravates colitis SULFABENZAMIDE 12/09/2007 6 - Diarrhea Date Reviewed: 10/07/2020 Reviewed by: Taryn Duque Ma - Fully Assessed Reason for Visit: Refill Request [94] Order(s):metoprolol succinate ER (TOPROL XL) 50 mg 24 hr tabletTake 1 tablet by mouth once daily.Disp: 90 tabletRfl: 0 Prescriptions as of 01/10/2021 Sig: METOPROLOL SUCCINATE ER 50 MG* Take 1 tablet by mouth once d* PRAVASTATIN 40 MG TABLET Take 1 tablet by mouth once d* ZINC SULFATE 50 MG ZINC (220 * Take 1 capsule by mouth once * HYZAAR 50 MG-12.5 MG TABLET TAKE 1 TABLET BY MOUTH TWICE * CHOLECALCIFEROL (VITAMIN D3) * Take 1 capsule by mouth one t* PREDNISONE 10 MG TABLET Take by mouth 4 tabs daily x * Patient not taking: Reported on 10/07/2020 MELATONIN 10 MG TABLET Take 10 mg by mouth once panda* VITAMIN B COMPLEX ORAL Take by mouth once daily. TRIAMCINOLONE ACETONIDE 0.1 %* Apply 1 application to affect* ASCORBIC ACID (VITAMIN C) 1,0* Take 3 tablets twice daily CYANOCOBALAMIN (VIT B-12) 1,0* Take 1,000 mcg by mouth once * CALCIUM 300 ORAL Take by mouth. FLAXSEED OIL 1,000 MG CAPSULE Take one(1) tablet two(2) kervin* ECOTRIN LOW STRENGTH 81 MG TA* Take one(1) tablet daily. TYLENOL ARTHRITIS 650 MG TABL* Tkae 2 tablets in the morning* MULTIVITAMIN TABLET Take one(1) tablet daily. Problem List As Of Date 01/10/2021 Noted Resolved Loss of weight [R63.4] 12/09/2007 08/05/2013 Diarrhea [R19.7] 12/25/2007 08/05/2013 Acute gastritis without mention of hemorrhage [*01/26/2008 08/05/2013 Diaphragmatic hernia without mention of obstruc*01/26/2008 08/05/2013 Sciatica [M54.30] 01/07/2009 12/28/2016 Thoracic or lumbosacral neuritis or radiculitis*01/07/2009 07/05/2016 Neuralgia, neuritis, and radiculitis, unspecifi*01/07/2009 07/05/2016 Actinic Keratosis (Premalignant AK) [L57.0] 07/05/2010 08/05/2013 Solar lentigo [L81.4] 07/05/2010 08/12/2015 Seborrheic Keratosis [L82.1] 07/05/2010 08/12/2015 Actinic Damage//Sun-Damaged Skin [L57.8] 07/05/2010 08/12/2015 Psoriasis [L40.8] 07/05/2010 Irritated//Inflamed Seborrheic Keratoses [L82.0]07/05/2010 08/12/2015 Melanocytic nevus of trunk: Intradermal Nevi: b*07/05/2010 Diverticulitis [K57.92] 08/12/2015 Diverticulitis of colon [K57.32] 10/09/2011 07/05/2016 Hypertension goal BP (blood pressure) < 140/90 *06/22/2013 Lumbar radiculopathy [M54.16] 06/24/2013 07/05/2016 Degeneration of lumbar or lumbosacral intervert*06/04/2014 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072] 05/09/2017 Ulcerative colitis without complications (HCC) *09/12/2017 COVID-19 [U07.1] 09/02/2020 Prescriptions orde (more content not included)... 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 Left ventricular Ejection fraction 60-65 Invalid Interpretation Code [employer] Work Phone: [phone] Lab Report: Lipid Profileon 06-24-2017 Cholesterol 183 mg/dL Invalid Interpretation Code 200 [employer] Work Phone: [phone] HDL Cholesterol 50 mg/dL Invalid Interpretation Code [employer] Work Phone: [phone] LDL Cholesterol 102 mg/dL Invalid Interpretation Code 0-130 [employer] Work Phone: [phone] Triglyceride 153 mg/dL Invalid Interpretation Code [employer] Work Phone: [phone] very low density lipoproteins 31 mg/dL Invalid Interpretation Code 5-40 [employer] Work Phone: [phone] Lab Report: Vitamin D,25 Hyd roxyon 06-24-2017 Vitamin D 25-OH 26.8 ng/mL Invalid Interpretation Code [employer] Phone: [phone] Replaced Document: Liver Pro fileon 06-24-2017 Alanine aminotransferase (ALT) 18 U/L Invalid Interpretation Code 12-78 [employer] Work Phone: [phone] Albumin 3.4 g/dL Invalid Interpretation Code 3.4-5.0 [employer] Work Phone: [phone] Alkaline phosphatase (ALP) 75 U/L Invalid Interpretation Code 45-117 [employer] Work Phone: [phone] Aspartate aminotransferase (AST) 14 U/L Low 15-37 [employer] Phone: [phone] Bilirubin (direct) 0.07 mg/dL Invalid Interpretation Code 0.00-0.30 [employer] Work Phone: [phone] Bilirubin (total) 0.20 mg/dL Invalid Interpretation Code 0.20-1.00 [employer] Work Phone: [phone] Globulin 3.5 g/dL Invalid Interpretation Code 2.3-3.5 [employer] Work Phone: [phone] Protein 6.9 g/dL Invalid Interpretation Code 6.4-8.2 [employer] Phone: [phone] Office Visiton 05-21-2017 Documentation of current medications (procedure) Done Invalid Interpretation Code [employer] Work Phone: [phone] Fall risk assessment No Invalid Interpretation Code [facility] Work Phone: [phone] Clinical Lists 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 Stacey Robledo MD Work Phone: [facility] 03-23-2025 14:28-0400 Body mass index (BMI) [Ratio] 29.7 kg/m2 Dr. Stacey Robledo MD Work Phone: [facility] 03-23-2025 14:28-0400 Body weight 76.[address] Stacey Robledo MD Work Phone: [facility] 03-23-2025 14:28-0400 Diastolic blood pressure 78 mm[Hg] Dr. Stacey Robledo MD Work Phone: [facility] 03-23-2025 14:28-0400 Heart rate 58 /min Dr. Stacey Robledo MD Work Phone: [facility] 03-23-2025 14:28-0400 Respiratory rate 18 /min Dr. Stacey Robledo MD Work Phone: [facility] 03-23-2025 14:28-0400 Systolic blood pressure 147 mm[Hg] Dr. Stacey Robledo MD Work Phone: [facility] 03-16-2025 08:31-0400 Body mass index (BMI) [Ratio] 29.9 kg/m2 Dr. Stacey Robledo MD Work Phone: [facility] 03-16-2025 08:31-0400 Body temperature 97.1 [degF] Dr. Stacey Robledo MD Work Phone: [facility] 03-16-2025 08:31-0400 Body weight 76.[address] Stacey Robledo MD Work Phone: [facility] 03-16-2025 08:31-0400 Diastolic blood pressure 52 mm[Hg] Dr. Stacey Robledo MD Work Phone: [facility] 03-16-2025 08:31-0400 Heart rate 65 /min Dr. Stacey Robledo MD Work Phone: [facility] 03-16-2025 08:31-0400 Respiratory rate 18 /min Dr. Stacey Robledo MD Work Phone: [facility] 03-16-2025 08:31-0400 SaO2% (BldA) [Mass fraction] 95 % Dr. Stacey Robledo MD Work Phone: [facility] 03-16-2025 08:31-0400 Systolic blood pressure 135 mm[Hg] Dr. Stacey Robledo MD Work Phone: [facility] 12-30-2024 09:42-0400 Body height 160.[address] Stacey Robledo MD Work Phone: [facility] 12-30-2024 09:42-0400 Body mass index (BMI) [Ratio] 29.7 kg/m2 Dr. Stacey Robledo MD Work Phone: [facility] 12-30-2024 09:42-0400 Body temperature 97.8 [degF] Dr. Stacey Robledo MD Work Phone: [facility] 12-30-2024 09:42-0400 Body weight 76.[address] Stacey Robledo MD Work Phone: [facility] 12-30-2024 09:42-0400 Diastolic blood pressure 75 mm[Hg] Dr. Stacey Robledo MD Work Phone: [facility] 12-30-2024 09:42-0400 Heart rate 59 /min Dr. Stacey Robledo MD Work Phone: [facility] 12-30-2024 09:42-0400 Respiratory rate 16 /min Dr. Stacey Robledo MD Work Phone: [facility] 12-30-2024 09:42-0400 SaO2% (BldA) [Mass fraction] 95 % Dr. Stacey Robledo MD Work Phone: [facility] 12-30-2024 09:42-0400 Systolic blood pressure 127 mm[Hg] Dr. Stacey Robledo MD Work Phone: [facility] 12-01-2024 14:34-0500 Body height 160.[address] Stacey Robledo MD Work Phone: [facility] 12-01-2024 14:34-0500 Body mass index (BMI) [Ratio] 29.8 kg/m2 Dr. Stacey Robledo MD Work Phone: [facility] 12-01-2024 14:34-0500 Body temperature 98.1 [degF] Dr. Stacey Robledo MD Work Phone: [facility] 12-01-2024 14:34-0500 Body weight 76.[address] Stacey Robledo MD Work Phone: [facility] 12-01-2024 14:34-0500 Diastolic blood pressure 66 mm[Hg] Dr. Stacey Robledo MD Work Phone: [facility] 12-01-2024 14:34-0500 Heart rate 69 /min Dr. Stacey Robledo MD Work Phone: [facility] 12-01-2024 14:34-0500 SaO2% (BldA) [Mass fraction] 98 % Dr. Stacey Robledo MD Work Phone: [facility] 12-01-2024 14:34-0500 Systolic blood pressure 120 mm[Hg] Dr. Stacey Robledo MD Work Phone: [facility] 08-31-2024 11:12-0500 Body mass index (BMI) [Ratio] 30.1 kg/m2 Dr. Stacey Robledo MD Work Phone: [facility] 08-31-2024 11:12-0500 Body weight 77.[address] Stacey Robledo MD Work Phone: [facility] 08-31-2024 11:12-0500 Diastolic blood pressure 67 mm[Hg] Dr. Stacey Robledo MD Work Phone: [facility] 08-31-2024 11:12-0500 Heart rate 67 /min Dr. Stacey Robledo MD Work Phone: [facility] 08-31-2024 11:12-0500 Respiratory rate 20 /min Dr. Stacey Robledo MD Work Phone: [facility] 08-31-2024 11:12-0500 SaO2% (BldA) [Mass fraction] 97 % Dr. Stacey Robledo MD Work Phone: [facility] 08-31-2024 11:12-0500 Systolic blood pressure 119 mm[Hg] Dr. Stacey Robledo MD Work Phone: [facility] 08-17-2024 13:58-0500 Body mass index (BMI) [Ratio] 30.1 kg/m2 Dr. Stacey Robledo MD Work Phone: [facility] 08-17-2024 13:58-0500 Body temperature 97.8 [degF] Dr. Stacey Robledo MD Work Phone: [facility] 08-17-2024 13:58-0500 Body weight 77.[address] Stacey Robledo MD Work Phone: [facility] 08-17-2024 13:58-0500 Diastolic blood pressure 72 mm[Hg] Dr. Stacey Robledo MD Work Phone: [facility] 08-17-2024 13:58-0500 Heart rate 65 /min Dr. Stacey Robledo MD Work Phone: [facility] 08-17-2024 13:58-0500 Respiratory rate 16 /min Dr. Stacey Robledo MD Work Phone: [facility] 08-17-2024 13:58-0500 SaO2% (BldA) [Mass fraction] 92 % Dr. Stacey Robledo MD Work Phone: [facility] 08-17-2024 13:58-0500 Systolic blood pressure 141 mm[Hg] Dr. Stacey Robledo MD Work Phone: [facility] 02-06-2024 10:01-0400 Body height 160.[address] Stacey Robledo Work Phone: [facility] 02-06-2024 10:01-0400 Body mass index (BMI) [Ratio] 29.7 kg/m2 Dr. Stacey Robledo Work Phone: [facility] 02-06-2024 10:01-0400 Body temperature 98.2 [degF] Dr. Stacey Robledo Work Phone: [facility] 02-06-2024 10:01-0400 Body weight 76.[address] Stacey Robledo Work Phone: [facility] 02-06-2024 10:01-0400 Diastolic blood pressure 77 mm[Hg] Dr. Stacey Robledo Work Phone: [facility] 02-06-2024 10:01-0400 Heart rate 59 /min Dr. Stacey Robledo Work Phone: [facility] 02-06-2024 10:01-0400 Respiratory rate 18 /min Dr. Stacey Robledo Work Phone: [facility] 02-06-2024 10:01-0400 SaO2% (BldA) [Mass fraction] 95 % Dr. Stacey Robledo Work Phone: [facility] 02-06-2024 10:01-0400 Systolic blood pressure 143 mm[Hg] Dr. Stacey Robledo Work Phone: [facility] 05-07-2023 09:35-0400 Body temperature 97.4 [degF] Dr. Stacey Robledo Work Phone: [facility] 05-07-2023 09:35-0400 Diastolic blood pressure 54 mm[Hg] Dr. Stacey Robledo Work Phone: [facility] 05-07-2023 09:35-0400 Heart rate 69 /min Dr. Stacey Robledo Work Phone: [facility] 05-07-2023 09:35-0400 Respiratory rate 16 /min Dr. Stacey Robledo Work Phone: [facility] 05-07-2023 09:35-0400 SaO2% (BldA) [Mass fraction] 92 % Dr. Stacey Robledo Work Phone: [facility] 05-07-2023 09:35-0400 Systolic blood pressure 107 mm[Hg] Dr. Stacey Robledo Work Phone: [facility] 05-07-2023 07:56-0400 Body height 160.[address] Stacey Robledo Work Phone: [facility] 05-07-2023 07:56-0400 Body mass index (BMI) [Ratio] 28.3 kg/m2 Dr. Stacey Robledo Work Phone: [facility] 05-07-2023 07:56-0400 Body weight 72.[address] Stacey Robledo Work Phone: [facility] 04-04-2023 09:47-0400 Body mass index (BMI) [Ratio] 29.7 kg/m2 Dr. Stacey Robledo Work Phone: [facility] 04-04-2023 09:47-0400 Body temperature 97 [degF] Dr. Stacey Robledo Work Phone: [facility] 04-04-2023 09:47-0400 Body weight 76.[address] Stacey Robledo Work Phone: [facility] 04-04-2023 09:47-0400 Diastolic blood pressure 70 mm[Hg] Dr. Stacey Robledo Work Phone: [facility] 04-04-2023 09:47-0400 Heart rate 64 /min Dr. Stacey Robledo Work Phone: [facility] 04-04-2023 09:47-0400 Respiratory rate 17 /min Dr. Stacey Robledo Work Phone: [facility] 04-04-2023 09:47-0400 SaO2% (BldA) [Mass fraction] 93 % Dr. Stacey Robledo Work Phone: [facility] 04-04-2023 09:47-0400 Systolic blood pressure 134 mm[Hg] Dr. Stacey Robledo Work Phone: [facility] 03-14-2023 09:33-0400 Body mass index (BMI) [Ratio] 29.7 kg/m2 Dr. Stacey Robledo Work Phone: [facility] 03-14-2023 09:33-0400 Body temperature 95.3 [degF] Dr. Stacey Robledo Work Phone: [facility] 03-14-2023 09:33-0400 Body weight 76.[address] Stacey Robledo Work Phone: [facility] 03-14-2023 09:33-0400 Diastolic blood pressure 72 mm[Hg] Dr. Stacey Robledo Work Phone: [facility] 03-14-2023 09:33-0400 Heart rate 85 /min Dr. Stacey Robledo Work Phone: [facility] 03-14-2023 09:33-0400 Respiratory rate 20 /min Dr. Stacey Robledo Work Phone: [facility] 03-14-2023 09:33-0400 SaO2% (BldA) [Mass fraction] 96 % Dr. Stacey Robledo Work Phone: [facility] 03-14-2023 09:33-0400 Systolic blood pressure 158 mm[Hg] Dr. Stacey Robledo Work Phone: [facility] 03-12-2023 10:43-0400 Body mass index (BMI) [Ratio] 29.4 kg/m2 Dr. Stacey Robledo Work Phone: [facility] 03-12-2023 10:43-0400 Body weight 75.[address] Stacey Robledo Work Phone: [facility] 03-12-2023 10:43-0400 Diastolic blood pressure 74 mm[Hg] Dr. Stacey Robledo Work Phone: [facility] 03-12-2023 10:43-0400 Heart rate 61 /min Dr. Stacey Robledo Work Phone: [facility] 03-12-2023 10:43-0400 Respiratory rate 18 /min Dr. Stacey Robledo Work Phone: [facility] 03-12-2023 10:43-0400 Systolic blood pressure 150 mm[Hg] Dr. Stacey Robledo Work Phone: [facility] 09-10-2022 14:01-0500 Heart rate 62 /min Dr. Stacey Robledo Work Phone: [facility] Work Phone: 09-10-2022 14:01-0500 Respiratory rate 16 /min Dr. Stacey Robledo Work Phone: [facility] Work Phone: 09-10-2022 14:01-0500 SaO2% (BldA) [Mass fraction] 96 % Dr. Stacey Robledo Work Phone: [facility] Work Phone: 09-10-2022 11:49-0500 Body height 160.[address] Stacey Robledo Work Phone: [facility] Work Phone: 09-10-2022 11:49-0500 Body mass index (BMI) [Ratio] 27.6 kg/m2 Dr. Stacey Robledo Work Phone: [facility] Work Phone: 09-10-2022 11:49-0500 Body temperature 96.6 [degF] Dr. Stacey Robledo Work Phone: [facility] Work Phone: 09-10-2022 11:49-0500 Body weight 70.[address] Stacey Robledo Work Phone: [facility] Work Phone: 09-10-2022 11:49-0500 Diastolic blood pressure 75 mm[Hg] Dr. Stacey Robledo Work Phone: [facility] Work Phone: 09-10-2022 11:49-0500 Systolic blood pressure 103 mm[Hg] Dr. Stacey Robledo Work Phone: [facility] Work Phone: 09-07-2022 13:31-0500 Body mass index (BMI) [Ratio] 29 kg/m2 Dr. Stacey Robledo Work Phone: [facility] Work Phone: 09-07-2022 13:31-0500 Body weight 74.[address] Stacey Robledo Work Phone: [facility] Work Phone: 09-07-2022 13:31-0500 Diastolic blood pressure 80 mm[Hg] Dr. Stacey Robledo Work Phone: [facility] Work Phone: 09-07-2022 13:31-0500 Heart rate 52 /min Dr. Stacey Robledo Work Phone: [facility] Work Phone: 09-07-2022 13:31-0500 Respiratory rate 18 /min Dr. Stacey Robledo Work Phone: [facility] Work Phone: 09-07-2022 13:31-0500 SaO2% (BldA) [Mass fraction] 97 % Dr. Stacey Robledo Work Phone: [facility] Work Phone: 09-07-2022 13:31-0500 Systolic blood pressure 148 mm[Hg] Dr. Stacey Robledo Work Phone: [facility] Work Phone: 09-06-2022 09:27-0500 Body mass index (BMI) [Ratio] 28.8 kg/m2 Dr. Stacey Robledo Work Phone: [facility] Work Phone: 09-06-2022 09:27-0500 Body temperature 96.8 [degF] Dr. Stacey Robledo Work Phone: [facility] Work Phone: 09-06-2022 09:27-0500 Body weight 73.[address] Stacey Robledo Work Phone: [facility] Work Phone: 09-06-2022 09:27-0500 Diastolic blood pressure 54 mm[Hg] Dr. Stacey Robledo Work Phone: [facility] Work Phone: 09-06-2022 09:27-0500 Heart rate 80 /min Dr. Stacey Robledo Work Phone: [facility] Work Phone: 09-06-2022 09:27-0500 Respiratory rate 20 /min Dr. Stacey Robledo Work Phone: [facility] Work Phone: 09-06-2022 09:27-0500 SaO2% (BldA) [Mass fraction] 93 % Dr. Stacey Robledo Work Phone: [facility] Work Phone: 09-06-2022 09:27-0500 Systolic blood pressure 115 mm[Hg] Dr. Stacey Robledo Work Phone: [facility] Work Phone: 07-26-2022 10:52-0400 Body temperature 98.2 [degF] Dr. Stacey Robledo Work Phone: [facility] Work Phone: 07-26-2022 10:52-0400 Body weight 73.[address] Stacey Robledo Work Phone: [facility] Work Phone: 07-26-2022 10:52-0400 Diastolic blood pressure 58 mm[Hg] Dr. Stacey Robledo Work Phone: [facility] Work Phone: 07-26-2022 10:52-0400 Heart rate 72 /min Dr. Stacey Robledo Work Phone: [facility] Work Phone: 07-26-2022 10:52-0400 Respiratory rate 16 /min Dr. Stacey Robledo Work Phone: [facility] Work Phone: 07-26-2022 10:52-0400 SaO2% (BldA) [Mass fraction] 96 % Dr. Stacey Robledo Work Phone: [facility] Work Phone: 07-26-2022 10:52-0400 Systolic blood pressure 118 mm[Hg] Dr. Stacey Robledo Work Phone: [facility] Work Phone: 07-16-2022 08:17-0400 Body weight 73.[address] Stacey Robledo Work Phone: [facility] Work Phone: 06-30-2022 01:31-0400 Body weight 72.[address] Stacey Robledo Work Phone: [facility] Work Phone: 06-28-2022 07:52-0400 Body height 160.[address] Stacey Robledo Work Phone: [facility] Work Phone: 06-28-2022 07:52-0400 Body mass index (BMI) [Ratio] 28.9 kg/m2 Dr. Stacey Robledo Work Phone: [facility] Work Phone: 06-28-2022 07:52-0400 Body temperature 98 [degF] Dr. Stacey Robledo Work Phone: [facility] Work Phone: 06-28-2022 07:52-0400 Body weight 74.[address] Stacey Robledo Work Phone: [facility] Work Phone: 06-28-2022 07:52-0400 Diastolic blood pressure 67 mm[Hg] Dr. Stacey Robledo Work Phone: [facility] Work Phone: 06-28-2022 07:52-0400 Heart rate 61 /min Dr. Stacey Robledo Work Phone: [facility] Work Phone: 06-28-2022 07:52-0400 Respiratory rate 16 /min Dr. Stacey Robledo Work Phone: [facility] Work Phone: 06-28-2022 07:52-0400 SaO2% (BldA) [Mass fraction] 96 % Dr. Stacey Robledo Work Phone: [facility] Work Phone: 06-28-2022 07:52-0400 Systolic blood pressure 146 mm[Hg] Dr. Stacey Robledo Work Phone: [facility] Work Phone: 06-15-2022 07:17-0400 Body weight 72.[address] Stacey Robledo Work Phone: [facility] Work Phone: 05-17-2022 06:13-0400 Body height 160.[address] Stacey Robledo Work Phone: [facility] Work Phone: 05-17-2022 06:13-0400 Body mass index (BMI) [Ratio] 28.5 kg/m2 Dr. Stacey Robledo Work Phone: [facility] Work Phone: 05-17-2022 06:13-0400 Body temperature 98.7 [degF] Dr. Stacey Robledo Work Phone: [facility] Work Phone: 05-17-2022 06:13-0400 Body weight 73.[address] Stacey Robledo Work Phone: [facility] Work Phone: 05-17-2022 06:13-0400 Diastolic blood pressure 70 mm[Hg] Dr. Stacey Robledo Work Phone: [facility] Work Phone: 05-17-2022 06:13-0400 Heart rate 58 /min Dr. Stacey Robledo Work Phone: [facility] Work Phone: 05-17-2022 06:13-0400 Respiratory rate 19 /min Dr. Stacey Robledo Work Phone: [facility] Work Phone: 05-17-2022 06:13-0400 SaO2% (BldA) [Mass fraction] 98 % Dr. Stacey Robledo Work Phone: [facility] Work Phone: 05-17-2022 06:13-0400 Systolic blood pressure 165 mm[Hg] Dr. Stacey Robledo Work Phone: [facility] Work Phone: 04-16-2022 11:32-0400 Body height 160.[address] Stacey Robledo Work Phone: [facility] Work Phone: 04-16-2022 11:32-0400 Body weight 72.[address] Stacey Robledo Work Phone: [facility] Work Phone: 04-16-2022 11:25-0400 Body mass index (BMI) [Ratio] 28.3 kg/m2 Dr. Stacey Robledo Work Phone: [facility] Work Phone: 04-16-2022 11:25-0400 Heart rate 68 /min Dr. Stacey Robledo Work Phone: [facility] Work Phone: 04-16-2022 11:25-0400 SaO2% (BldA) [Mass fraction] 97 % Dr. Stacey Robledo Work Phone: [facility] Work Phone: 03-16-2022 10:04-0400 Body height 160.[address] Stacey Robledo Work Phone: [facility] Work Phone: 03-16-2022 10:04-0400 Body mass index (BMI) [Ratio] 28.3 kg/m2 Dr. Stacey Robledo Work Phone: [facility] Work Phone: 03-16-2022 10:04-0400 Body weight 72.[address] Stacey Robledo Work Phone: [facility] Work Phone: 03-16-2022 10:04-0400 Diastolic blood pressure 64 mm[Hg] Dr. Stacey Robledo Work Phone: [facility] Work Phone: 03-16-2022 10:04-0400 Heart rate 59 /min Dr. Stacey Robledo Work Phone: [facility] Work Phone: 03-16-2022 10:04-0400 Respiratory rate 16 /min Dr. Stacey Robledo Work Phone: [facility] Work Phone: 03-16-2022 10:04-0400 Systolic blood pressure 116 mm[Hg] Dr. Stacey Robledo Work Phone: [facility] Work Phone: 03-08-2022 08:48-0400 Body mass index (BMI) [Ratio] 28.8 kg/m2 Dr. Stacey Robledo Work Phone: [facility] Work Phone: 03-08-2022 08:48-0400 Body temperature 98.1 [degF] Dr. Stacey Robledo Work Phone: [facility] Work Phone: 03-08-2022 08:48-0400 Body weight 73.[address] Stacey Robledo Work Phone: [facility] Work Phone: 03-08-2022 08:48-0400 Diastolic blood pressure 64 mm[Hg] Dr. Stacey Robledo Work Phone: [facility] Work Phone: 03-08-2022 08:48-0400 Heart rate 62 /min Dr. Stacye Robledo Work Phone: [facility] Work Phone: 03-08-2022 08:48-0400 Respiratory rate 20 /min Dr. Stacey Robledo Work Phone: [facility] Work Phone: 03-08-2022 08:48-0400 SaO2% (BldA) [Mass fraction] 94 % Dr. Stacey Robledo Work Phone: [facility] Work Phone: 03-08-2022 08:48-0400 Systolic blood pressure 129 mm[Hg] Dr. Stacey Robledo Work Phone: [facility] Work Phone: 03-03-2022 08:45-0400 Body temperature 97.8 [degF] Dr. Stacey Robledo Work Phone: [facility] Work Phone: 03-03-2022 08:45-0400 Diastolic blood pressure 58 mm[Hg] Dr. Stacey Robledo Work Phone: [facility] Work Phone: 03-03-2022 08:45-0400 Heart rate 72 /min Dr. Stacey Robledo Work Phone: [facility] Work Phone: 03-03-2022 08:45-0400 Respiratory rate 17 /min Dr. Stacey Robledo Work Phone: [facility] Work Phone: 03-03-2022 08:45-0400 SaO2% (BldA) [Mass fraction] 97 % Dr. Stacey Robledo Work Phone: [facility] Work Phone: 03-03-2022 08:45-0400 Systolic blood pressure 114 mm[Hg] Dr. Stacey Robledo Work Phone: [facility] Work Phone: 03-02-2022 09:33-0400 Body height 160.[address] Stacey Robledo Work Phone: [facility] Work Phone: 03-02-2022 09:33-0400 Body weight 72.[address] Stacey Robledo Work Phone: [facility] Work Phone: 03-01-2022 08:40-0400 Body mass index (BMI) [Ratio] 28.3 kg/m2 Dr. Stacey Robledo Work Phone: [facility] Work Phone: 02-22-2022 08:57-0400 Body mass index (BMI) [Ratio] 28.3 kg/m2 Dr. Stacey Robledo Work Phone: [facility] Work Phone: 02-22-2022 08:57-0400 Body weight 72.[address] Stacey Robledo Work Phone: [facility] Work Phone: 02-22-2022 08:57-0400 Diastolic blood pressure 76 mm[Hg] Dr. Stacey Robledo Work Phone: [facility] Work Phone: 02-22-2022 08:57-0400 Heart rate 60 /min Dr. Stacey Robledo Work Phone: [facility] Work Phone: 02-22-2022 08:57-0400 Respiratory rate 16 /min Dr. Stacey Robledo Work Phone: [facility] Work Phone: 02-22-2022 08:57-0400 SaO2% (BldA) [Mass fraction] 98 % Dr. Stacey Robledo Work Phone: [facility] Work Phone: 02-22-2022 08:57-0400 Systolic blood pressure 121 mm[Hg] Dr. Stacey Robledo Work Phone: [facility] Work Phone: 02-22-2022 08:57-0400 Body mass index (BMI) [Ratio] 28.3 kg/m2 Dr. Stacey Robledo Work Phone: [facility] Work Phone: 02-22-2022 08:57-0400 Body weight 72.[address] Stacey Robledo Work Phone: [facility] Work Phone: 02-22-2022 08:57-0400 Diastolic blood pressure 76 mm[Hg] Dr. Stacey Robledo Work Phone: [facility] Work Phone: 02-22-2022 08:57-0400 Heart rate 60 /min Dr. Stacey Robledo Work Phone: [facility] Work Phone: 02-22-2022 08:57-0400 Respiratory rate 16 /min Dr. Stacey Robledo Work Phone: [facility] Work Phone: 02-22-2022 08:57-0400 SaO2% (BldA) [Mass fraction] 98 % Dr. Stacey Robledo Work Phone: [facility] Work Phone: 02-22-2022 08:57-0400 Systolic blood pressure 121 mm[Hg] Dr. Stacey Robledo Work Phone: [facility] Work Phone: 02-19-2022 15:12-0400 Body mass index (BMI) [Ratio] 28.3 kg/m2 Dr. Stacey Robledo Work Phone: [facility] Work Phone: 02-19-2022 15:12-0400 Body temperature 96.3 [degF] Dr. Stacey Robledo Work Phone: [facility] Work Phone: 02-19-2022 15:12-0400 Body weight 72.[address] Stacey Robledo Work Phone: [facility] Work Phone: 02-19-2022 15:12-0400 Diastolic blood pressure 68 mm[Hg] Dr. Stacey Robledo Work Phone: [facility] Work Phone: 02-19-2022 15:12-0400 Heart rate 72 /min Dr. Stacey Robledo Work Phone: [facility] Work Phone: 02-19-2022 15:12-0400 Respiratory rate 14 /min Dr. Stacey Robledo Work Phone: [facility] Work Phone: 02-19-2022 15:12-0400 SaO2% (BldA) [Mass fraction] 96 % Dr. Stacey Robledo Work Phone: [facility] Work Phone: 02-19-2022 15:12-0400 Systolic blood pressure 132 mm[Hg] Dr. Stacey Robledo Work Phone: [facility] Work Phone: 02-19-2022 15:12-0400 Body mass index (BMI) [Ratio] 28.3 kg/m2 Dr. Stacey Robledo Work Phone: [facility] Work Phone: 02-19-2022 15:12-0400 Body temperature 96.3 [degF] Dr. Stacey Robledo Work Phone: [facility] Work Phone: 02-19-2022 15:12-0400 Body weight 72.[address] Stacey Robledo Work Phone: [facility] Work Phone: 02-19-2022 15:12-0400 Diastolic blood pressure 68 mm[Hg] Dr. Stacey Robledo Work Phone: [facility] Work Phone: 02-19-2022 15:12-0400 Heart rate 72 /min Dr. Stacey Robledo Work Phone: [facility] Work Phone: 02-19-2022 15:12-0400 Respiratory rate 14 /min Dr. Stacey Robledo Work Phone: [facility] Work Phone: 02-19-2022 15:12-0400 SaO2% (BldA) [Mass fraction] 96 % Dr. Stacey Robledo Work Phone: [facility] Work Phone: 02-19-2022 15:12-0400 Systolic blood pressure 132 mm[Hg] Dr. Stacey Robledo Work Phone: [facility] Work Phone: 08-26-2017 09:38-0500 BMI (Body Mass Index) 25.92 kg/m2 [facility] Work Phone: 08-26-2017 09:38-0500 BP Diastolic 60 mm[Hg] [facility] Work Phone: 08-26-2017 09:38-0500 BP Systolic 124 mm[Hg] [facility] Work Phone: 08-26-2017 09:38-0500 Height 162.[address] [facility] Work Phone: 08-26-2017 09:38-0500 Pulse (Heart Rate) 66 /min [facility] Work Phone: 08-26-2017 09:38-0500 Respiratory Rate 16 /min [facility] Work Phone: 08-26-2017 09:38-0500 Weight 68.[address] [facility] Work Phone: 05-21-2017 15:38-0400 BMI (Body Mass Index) 25.4 kg/m2 Evelin Kulkarni RN [facility] Work Phone: 05-21-2017 15:38-0400 BP Diastolic 66 mm[Hg] Evelin Kulkarni RN [facility] Work Phone: 05-21-2017 15:38-0400 BP Systolic 120 mm[Hg] Evelin Kulkarni RN [facility] Work Phone: 05-21-2017 15:38-0400 Height 162.56 cm Evelin Kulkarni RN [facility] Work Phone: 05-21-2017 15:38-0400 Pulse (Heart Rate) 68 /min Evelin Kulkarni RN [facility] Work Phone: 05-21-2017 15:38-0400 Respiratory Rate 18 /min Evelin Kulkarni RN [facility] Work Phone: 05-21-2017 15:38-0400 Weight 67.13 kg Evelin Kulkarni RN [facility] Work Phone: 05-07-2017 12:53-0400 Body Temperature 99.2 [degF] Evelin Kulkarni RN [facility] Work Phone: Encounters Encounter Date Encounter Type Care Provider Facility Start: 03-26-2025 ambulatory Yong Mora Facility:[facility] Start: 03-23-2025 End: 03-23-[address] Yong Mora MD -[facility] Work Phone: Start: 03-23-2025 End: 03-23-[address] Stacey Robledo MD Work Phone: [facility] Work Phone: Start: 03-16-2025 End: 03-16-2025 Patient encounter procedure Rosibel KULKARNIC -[facility] Work Phone: Start: 03-16-2025 End: 03-16-[address] Stacey Robledo MD Work Phone: [facility] Work Phone: Start: 01-22-2025 End: 01-22-2025 ambulatory [facility] Facility:[facility] Start: 01-22-2025 End: 01-22-[address] Stacey Robledo MD -Physical Therapy Work Phone: Start: 12-30-2024 End: 12-30-[address] Stacey Robledo MD -[facility] Work Phone: Start: 12-30-2024 End: 12-30-2024 ambulatory Stacey Robledo Facility:[facility] [place] Start: 12-04-2024 End: 12-04-[address] Stacey Robledo MD Work Phone: [facility] Work Phone: Start: 12-04-2024 End: 12-04-[address] Daniel Lim MD -Physical Therapy Work Phone: Start: 12-01-2024 End: 12-01-[address] Stacey Robledo MD -Laboratory, Specimen Work Phone: Start: 12-01-2024 End: 12-01-[address] Stacey Robledo MD Work Phone: [facility] Work Phone: Start: 12-01-2024 End: 12-01-2024 ambulatory Stacey Robledo Facility:[facility] Start: 08-31-2024 End: 08-31-2024 Patient encounter procedure Paul AU -[facility] Work Phone: Start: 08-31-2024 End: 08-31-2024 Patient encounter status Paul Goodman NP-[place] [facility] Start: 08-31-2024 End: 08-31-2024 ambulatory [facility] Facility:[facility] [place] Start: 08-17-[address] Stacey Robledo MD Work Phone: [facility] Start: 08-17-2024 End: 08-17-[address] Stacey Robledo MD -[facility] Work Phone: Start: 08-17-2024 End: 08-17-[address] Stacey Robledo MD [facility] Start: 08-17-2024 End: 08-17-2024 ambulatory Stacey Robledo Facility:[facility] Start: 07-13-2024 End: 07-13-2024 ambulatory Staceyabhay Robledo Facility:[facility] Start: 06-15-2024 End: 06-15-2024 ambulatory Stacey Robledo Facility:[facility] Start: 05-13-2024 End: 05-13-2024 ambulatory Stacey Robledo Facility:[facility] Start: 04-30-2024 ambulatory Yong Duránori Facility:[facility] Start: 04-30-2024 End: 04-30-2024 ambulatory Paul H Rex AGRICULTURAL SCIENCES PROFESSOR Facility:[facility] Start: 03-17-[address] Stacey Robledo MD Work Phone: [facility] Comment on above: October 07, 2024 ri ght knee replacement Start: 02-06-2024 End: 02-06-[address] Stacey Robledo Work Phone: [facility] Work Phone: Start: 02-03-2024 End: 02-03-[address] Stacey Robledo Work Phone: [facility] Work Phone: Start: 02-03-2024 End: 02-03-[address] Stacey Robledo Work Phone: [facility]-Laboratory Work Phone: Start: 01-31-2024 End: 01-31-[address] Stacey Robledo Work Phone: [facility] Work Phone: Start: 01-31-2024 End: 01-31-[address] Stacey Robledo Work Phone: [facility]-Laboratory Work Phone: Start: 05-07-2023 Non-patient / Non-visit Dr. Leonela Robledo Work Phone: [facility] Start: 05-07-2023 End: 05-07-2023 Admission to same day surgery center Dr. Stacey Robledo Work Phone: [facility]-Endoscopy Work Phone: Start: 05-07-2023 End: 05-07-[address] Stacey Robledo Work Phone: [facility] Work Phone: Start: 04-04-2023 End: 04-04-[address] Stacey Robledo Work Phone: [facility] Work Phone: Start: 03-14-2023 End: 03-14-[address] Stacey Robledo Work Phone: [facility] Work Phone: Start: 03-12-2023 End: 03-12-[address] Stacey Robledo Work Phone: [facility] Work Phone: Start: 09-10-2022 End: 09-10-2022 Emergency department patient visit Dr. Stacey Robledo Work Phone: [facility]-Emergency Department Start: 09-07-2022 End: 09-07-[address] Stacey Robledo Work Phone: [facility] Start: 09-06-2022 End: 09-06-[address] [facility] Start: 07-26-2022 End: 07-26-[address] Stacey Robledo Work Phone: [facility] Start: 07-20-2022 End: 07-30-[address] Stacey Robledo Work Phone: [facility] Work Phone: Start: 07-20-2022 End: 07-30-[address] Stacey Robledo Work Phone: [facility]-Cardiac Rehab Start: 07-10-2022 End: 07-10-[address] Stacey Robledo Work Phone: [facility] Work Phone: Start: 07-10-2022 End: 07-10-[address] Stacey Robledo Work Phone: [facility]-Sleep Lab Start: 07-06-[address] Stacey Robledo Work Phone: [facility]Cardiac Rehab Start: 06-29-2022 End: 06-29-[address] Stacey Robledo Work Phone: [facility] Work Phone: Start: 06-29-2022 End: 06-29-[address] Stacey Robledo Work Phone: [facility]Cardiac Rehab Start: 06-28-2022 End: 06-28-[address] St[facility] Start: 05-23-2022 End: 05-30-[address] Stacey Robledo Work Phone: [facility] Work Phone: Start: 05-23-2022 End: 05-30-[address] Stacey Robledo Work Phone: [facility]Cardiac Rehab Start: 05-17-2022 End: 05-17-[address] Stacey Robledo Work Phone: [facility]Pulmonary Medicine [facility] Start: 04-27-2022 End: 04-29-[address] Stacey Robledo Work Phone: [facility]Cardiac [facility] Start: 04-17-2022 End: 04-17-[address] Stacey Robledo Work Phone: [facility]-Sleep Lab Start: 04-16-2022 End: 04-16-[address] Stacey Robledo Work Phone: [facility]-Cardiac Rehab Start: 04-10-2022 Non-patient / Non-visit Dr. Leonela Robledo Work Phone: [facility] Start: 03-19-2022 End: 03-19-[address] Stacey Robledo Work Phone: [facility]-Laboratory Start: 03-16-2022 End: 03-16-[address] Stacey Robledo Work Phone: [facility] Start: 03-08-2022 End: 03-08-[address] Stacey Robledo Work Phone: [facility] Start: 03-07-2022 End: 03-07-[address] Stacey Robledo Work Phone: [facility]-Sleep Lab Start: 03-03-2022 Non-patient / Non-visit Dr. Leonela Robledo Work Phone: [facility] Start: 03-03-2022 Non-patient / Non-[facility] Start: 03-02-2022 End: 03-03-2022 Evaluation and management of inpatient Dr. Stacey Robledo Work Phone: [facility]-Progressive Care Unit Start: 02-22-2022 End: 02-22-[address] Stacey Robledo Work Phone: [facility] Start: 02-19-2022 End: 02-19-[address] Stacey Robledo Work Phone: [facility] Internal Medicine Procedures Date Procedure Procedure Detail Performing Clinician Start: 12-01-[address] Stacey Robledo MD Work Phone: Start: 05-07-[address] Stacey Robledo Work Phone: Start: 09-10-2022 X-ray of both feet Dr. Stacey Robledo Work Phone: Start: 03-02-2022 History of placement of stent for coronary artery disease History of coronary artery stent placement Dr. Stacey Robledo MD Comment on above: [id number] LAD at D2 bifurcation w/ 3.5 x 18 mm [facility] Stent and POBA-D2 03/02/22; Start: 02-22-2022 Plain chest X-ray Dr. Jose Robledo Work Phone: Start: 08-26-2017 End: 08-26-2017 SURINDER Rivas MD Work Phone: Start: 08-26-2017 End: 08-26-2017 Follow Up Appt 6 months Wil Rivas MD Work Phone: Start: 06-17-2017 End: 07-01-2017 *Hepatic Function Panel Wil Rivas MD Work Phone: Start: 06-17-2017 End: 07-01-2017 Lipid 1996 panel - Serum or Plasma Wil Rivas MD Work Phone: Start: 05-21-2017 End: 05-22-2017 *Hepatic Function Panel Wil Rivas MD Work Phone: Start: 05-21-2017 End: 05-21-2017 SURINDER Rivas MD Work Phone: Start: 05-21-2017 End: 05-21-2017 Follow Up Appt 3 months Wil Rivas MD Work Phone: Start: 05-21-2017 End: 05-22-2017 Lipid 1996 panel - Serum or Plasma Wil Rivas MD Work Phone: Start: 05-21-2017 End: 05-22-2017 Referral to link wire fabric machine tender Wil Rivas MD Work Phone: Start: 05-07-2017 End: 05-14-2017 Chest x-ray Wil Rivas MD Work Phone: Start: 05-07-2017 End: 05-15-2017 SURINDER Rivas MD Work Phone: Start: 05-07-2017 End: 05-15-2017 Follow up Appt 3 weeks Wil Rivas MD Work Phone: Start: 05-07-2017 End: 05-08-2017 Referral to link wire fabric machine tender Wil Rivas MD Work Phone: Start: 05-06-2017 End: 05-15-2017 Echocardiography Wil Rivas MD Work Phone: Start: 05-01-2017 End: 05-01-2017 SURINDER Goodman AGRICULTURAL SCIENCES PROFESSOR Work Phone: Start: 05-01-2017 End: 05-01-2017 Echocardiography Paul Goodman AGRICULTURAL SCIENCES PROFESSOR Work Phone: Plan of Treatment Date Care Activity Detail Author Start: 12-30-[address] [facility] Work Phone: Start: 08-31-[address] [facility] Work Phone: Start: 08-17-2024 Patient referral [facility] Work Phone: Start: 02-06-2024 Patient referral [facility] Work Phone: Start: 05-07-2023 Patient discharge [facility] Start: 04-10-2022 Patient referral [facility] Work Phone: Start: 03-05-2022 Patient referral [facility] Work Phone: Start: 03-03-2022 Patient discharge [facility] Work Phone: Start: 03-02-2022 Admission procedure [facility] Work Phone: Start: 03-02-2022 Following clinical pathway protocol [facility] Work Phone: Start: 03-02-2022 Cardiac monitoring [facility] Work Phone: Start: 03-02-2022 Cardiac rehabilitation - phase [address] [facility] Work Phone: Start: 03-02-2022 Cardiac rehabilitation - phase [address] [facility] Work Phone: Start: 03-02-2022 Oxygen therapy [facility] Work Phone: Start: 03-02-2022 Patient discharge [facility] Work Phone: Start: 03-02-2022 Systemic arterial pressure monitoring [facility] Work Phone: Start: 03-02-2022 Vascular disease risk assessment [facility] Work Phone: Start: 03-02-2022 Vital signs measurements [facility] Work Phone: Start: 03-02-2022 End: 03-02-[address] [facility] Work Phone: Start: 03-02-2022 End: 03-02-2022 Notification of physician [facility] Work Phone: Start: 03-02-2022 Patient education [facility] Work Phone: Start: 03-02-2022 Pulse taking [facility] Work Phone: Start: 03-02-2022 End: 03-02-2022 Taking patient vital signs [facility] Work Phone: Start: 03-02-2022 Wound care [facility] Work Phone: Start: 03-02-2022 Admission procedure [facility] Work Phone: Start: 03-02-2022 Assessment of risk of venous thromboembolism [facility] Work Phone: Start: 03-02-2022 Insertion of catheter into peripheral vein [facility] Work Phone: Start: 03-02-2022 Measuring intake and output [facility] Work Phone: Start: 03-02-2022 Providing care according to standard [facility] Work Phone: Start: 03-02-2022 Inhalation therapy procedure [facility] Work Phone: Start: 02-19-2022 Patient referral [facility] Work Phone: Start: 10-03-2017 End: 10-03-2017 Appointment Appointment [facility] Work Phone: Start: 09-30-2017 End: 08-26-2017 *Hepatic Function Panel *Hepatic Function Panel [facility] Work Phone: Start: 09-30-2017 End: 08-26-2017 Lipid panel [AGGREGATE] *Lipid Profile CC PCP [facility] Work Phone: Start: 08-26-2017 End: 08-26-2017 ALBERTN SURINDER [facility] Work Phone: Start: 08-26-2017 End: 08-26-2017 Follow Up Appt 6 months Follow Up Appt 6 months [facility] Work Phone: Start: 08-26-2017 End: 08-26-2017 Appointment [facility] Work Phone: Start: 06-17-2017 End: 06-24-2017 *Hepatic Function Panel *Hepatic Function Panel [facility] Work Phone: Start: 06-17-2017 End: 06-24-2017 Lipid panel [AGGREGATE] *Lipid Profile CC PCP [facility] Work Phone: Start: 05-21-2017 End: 05-22-2017 *Hepatic Function Panel *Hepatic Function Panel [facility] Work Phone: Start: 05-21-2017 End: 05-22-2017 Cardiac Rehab Cardiac Rehab [address] [place], [address] [facility] Work Phone: Start: 05-21-2017 End: 05-21-2017 SURINDER CADENA [facility] Work Phone: Start: 05-21-2017 End: 05-21-2017 Follow Up Appt 3 months Follow Up Appt 3 months [facility] Work Phone: Start: 05-21-2017 End: 05-22-2017 Lipid panel [AGGREGATE] *Lipid Profile CC PCP [facility] Work Phone: Start: 05-07-2017 End: 05-07-2017 Cardiac Rehab Cardiac Rehab [address] [place], [address] [facility] Work Phone: Start: 05-07-2017 End: 05-14-2017 Chest x-ray X-Ray, Chest, PA & Lateral [facility] Work Phone: Start: 05-07-2017 End: 05-15-2017 SURINDER CADENA [facility] Work Phone: Start: 05-07-2017 End: 05-15-2017 Follow up Appt 3 weeks Follow up Appt 3 weeks [facility] Work Phone: Start: 05-06-2017 End: 05-06-2017 Echocardiography Echocardiogram (complete) [facility] Work Phone: Start: 05-01-2017 End: 05-01-2017 SURINDER CADENA [facility] Work Phone: Start: 05-01-2017 End: 05-01-2017 Follow Up Appt 6 months Follow Up Appt 6 months [facility] Work Phone: Catheterization of l eft heart [facility] Work Phone: Colonoscopy [facility] Lipid 1996 panel - S maury or Plasma [facility] Work Phone: Patient referral [facility] Work Phone: T4 free measurement [facility] Work Phone: Thyroid stimulating hormone measurement [facility] Work Phone: Immunizations Immunization Date Immunization Notes Care Provider Fa cili 08-17-2024 Seasonal trivalent influenza vaccine, adjuvanted, preservative free Dr. Stacey Robledo MD Work Phone: [facility] 07-16-[address] Stacey Robledo Work Phone: [facility] Payers Date Payer Category Payer Self-pay [id number] 2021 Unknown [id number] 27 [id number] 2009 Medicare [id number] [facility] [id number] Unknown [id number] Unknown [id number] 2.16.8 [id number] Unknown [id number] 2.16.8 [id number] Unknown [id number] 2.16.8 [id number] Unknown [id number] 2.16.8 [id number] Unknown [id number] 2.16.8 [id number] Unknown [id number] 2.16.8 [id number] Unknown [id number] 2.16.8 [id number] Unknown [id number] 2.16.8 [id number] Unknown [id number] 2.16.8 [id number] Unknown [id number] 2.16.8 [id number] Unknown [id number] 2.16.8 [id number] Unknown [id number] 2.16.8 [id number] Unknown [id number] 2.16.8 [id number] Unknown [id number] 2.16.8 [id number] Unknown [id number] 2.16.8 [id number] Social History Date Type Detail Facility Start: 03-01-2022 End: 09-02-2023 Tobacco smoking status NHIS Unknown if ever smoked [facility] Start: 02-20-2021 Non-smoker [facility] Start: 1945 Sex Assigned At Female [facility] Start: 08-31-2024 Tobacco smoking status NHIS Ex-smoker (finding) [facility] Start: 12-07-2024 End: 12-15-2024 Sex Female (finding) [facility] NEGATED: Highlighted row [facility] Medical Equipment Procedure Code Equipment Code Equipment Origin al Text Equipment Identifier Dates ([id number]) Drug-eluting coronary artery stent, bioabsorbable-polyme r-coated [id number] FDA Start: 03-02-2022 Goals Date Patient Goal Desired Activity /State Functional Status Date Assessment Result Facility 03-03-2022 Functional status Activity Abili ty Unable to Assess [facility] Work Phone: Mental Status Date Assessment Result Facility 05-07-2023 Cognitive function Voice/Name [facility] Work Phone: 03-03-2022 Cognitive function Appropriate;Dannie darcy [facility] Work Phone: Clinical Notes 04-08-2017 to 12-30-2024 Note Date & Type Note Facility 12-30-2024 Evaluation note Diagnosis Onset Date Resolution Left hip pain noneactive December 30, 2024 9:35am [facility] Work Phone: 1(545) 783-584604-02-2025 Evaluation note* Diagnosis Onset Date Resolution Status Admit Date Left hip pain noneactive December 30, 2024 9:35am Asthma chronic March 16 3:17pm JOSE (obstructive sleep apnea) chroni c March 16, 2025 3:17pm Overweight chronic March 16 3:17pm [facility] Work Phone: 1(350) 998-276103-07-2025 Discharge summary Author Sonu Mast [facility] Note Date/Time December 04, 2024 6:[address] [facility] Physical Therapy [address] [place] [address] / REHABILITATION SERVICES DISCHARGE SUMMARY MR#: [id number] Acct: [id number] Name: KARYN MULLER Rep #: [id number] : 1945 79 From: Sonu Mast PT, ATC Referring Dr.: Dr. Daniel Lim MD Status: REG RCR Insurance: MEDICARE PART A B [facility] Discharge Summary D/C summary: It has been my pleasure to treat KARYN MULLER referred by Dr. Daniel Lim MD, with the diagnosis of R TKA 10/07/24 for a total of 13 visit(s). Discharge Date: Please see the following information for a summary of their discharge status. Subjective Subjective: I feel ready to be done Pain R knee: Pain Intensity (Out of 10): 0 Overall Improvement % Improvement: 90 Objective Objective/Function: R knee pain ranges from 0-4/10 R knee ROM: 0-124 degrees R knee MMT: flex= 24, ext= 34 #F Pt is I with HEP Goals Goal 1:: Decrease R knee pain x 50% to aid with sleep Goal Progress: Goal Met Goal 2:: Increase R knee ROM x 20 degrees to aid with restoring a more normalized gait pattern Goal Progress: Goal Met Goal 3:: I with HEP Goal Progress: Goal Met Goal 4:: Increase R knee strength x 5-10#F to aid with stair negotiation Goal Progress: Goal Met Plan Plan: Discharge to I gym routine D/C Information d/c sentence: If there are questions or concerns regarding this patient's physical therapy, please feel free to call me at [phone]. Thank you for the referral of thispatient. Sincerely, Sonu Mast PT, ATC Balance/Gait/Functional tests Balance/Special Test Scores Lower Extremity Functional Score: 27 WOMAC Total Score: 20 WOMAC Percentage: 79.1700 Improvement % Improvement: 90 <Electronically signed by Sonu Mast PT, ATC> 12/04/24 1233 CC: Dr. Daniel Lim MD; Dr. Stacey Robledo MD ~ [facility] Signed [facility] Work Phone: 1(128) 943-374503-07-2025 Discharge summary [facility] Physical Therapy [facility] [address] [place] [address] [address] [place] [address] / REHABILITATION SERVICES DISCHARGE SUMMARY MR#: [id number] Acct: [id number] Name: KARYN MULLER Rep #: [id number] : 1945 79 From: Sonu Mast PT, ATC Referring DrMony: Dr. Daniel iLm MD Status: REG RCR Insurance: MEDICARE PART A B [facility] Discharge Summary D/C summary: It has been my pleasure to treat KARYN MULLER referred by Dr. Daniel Lim MD, with the diagnosis of R TKA 10/07/24 for a total of 13 visit(s). Discharge Date: Please see the following information for a summary of their discharge status. Subjective Subjective: I feel ready to be done Pain R knee: Pain Intensity (Out of 10): 0 Overall Improvement % Improvement: 90 Objective Objective/Function: R knee pain ranges from 0-4/10 R knee ROM: 0-124 degrees R knee MMT: flex= 24, ext= 34 #F Pt is I with HEP Goals Goal 1:: Decrease R knee pain x 50% to aid with sleep Goal Progress: Goal Met Goal 2:: Increase R knee ROM x 20 degrees to aid with restoring a more normalized gait pattern Goal Progress: Goal Met Goal 3:: I with HEP Goal Progress: Goal Met Goal 4:: Increase R knee strength x 5-10#F to aid with stair negotiation Goal Progress: Goal Met Plan Plan: Discharge to I gym routine D/C Information d/c sentence: If there are questions or concerns regarding this patient's physical therapy, please feel free to call me at [phone]. Thank you for the referral of thispatient. Sincerely, Sonu Mast, PT, ATC Balance/Gait/Functional tests Balance/Special Test Scores Lower Extremity Functional Score: 27 WOMAC Total Score: 20 WOMAC Percentage: 79.1700 Improvement % Improvement: 90 12/04/24 1233 CC: Dr. Daniel Lim MD; Dr. Stacey Robledo MD ~ [facility] Signed [facility]08-08-2023 History and physical note Author Bill Salas [facility] May 07, 2023 7:46am Note Date/Time May 07, 2023 7:[address] [facility] Medical Records Department [address] [place] [address] History & Physical Exam 05/07/23 0746 MR#: [id number] Acct: [id number] Name: KARYN MULLER Rep #:[id number] : 1945 77 From: Bill Salas MD PCP: Dr. Stacey Robledo MD Status:[facility] Location: [place] [address] History and Physical Date of Admission: 05/07/23 Intake Visit Reasons: RECALL LETTER- COLONOSCOPY Chief Complaint: colonoscopy Is patient in pain?: No Allergies meloxicam Adverse Reaction (Verified 04/04/23 09:48) Nauseamethotrexate Adverse Reaction (Verified 04/04/23 09:48) NauseaNSAIDS (Non-Steroidal Anti-Inflamma Adverse Reaction (Verified 04/04/23 09:48) NauseaSulfa (Sulfonamide Antibiotics) Adverse Reaction (Verified 04/04/23 09:48) Nausea Medications cyanocobalamin (vitamin B-12) 1,000 mcg tablet 1,000 mcg PO DAILY SUPPLEMENT 02/06/17 [History Confirmed 04/04/23] aspirin 81 mg tablet,delayed release (Adult Low Dose Aspirin) 81 mg PO QDAY heart health 10/02/17 [History Confirmed 04/04/23] calcium carb-vit D3-minerals 600 mg calcium-400 unit tablet 1 tab PO QDAY vitamin 10/02/17 [History Confirmed 04/04/23] multivitamin 1 tab PO DAILY vitamin 02/02/19 [History Confirmed 04/04/23] ascorbic acid (vitamin C) 1,000 mg tablet 1 g PO BID vitamin 02/10/21 [History Confirmed 04/04/23] acetaminophen 650 mg tablet,extended release 1,300 mg PO Q12H arthritis 02/22/22[History Confirmed 04/04/23] ticagrelor 90 mg tablet (Brilinta) 90 mg PO BID #180 tabs 03/03/22 [Rx Confirmed 04/04/23] albuterol sulfate 90 mcg/actuation aerosol inhaler 2 puff inhalation Q4H PRN shortness of breath or wheezing #8.5 grams 05/17/22 [Rx Confirmed 04/04/23] fluticasone furoate 200 mcg-vilanterol 25 mcg/dose inhalation powder (Breo Ellipta) 1 inh inhalation DAILY #3 ea 05/17/22 [Rx Confirmed 04/04/23] losartan 50 mg-hydrochlorothiazide 12.5 mg tablet 1 tab PO BID this is a dose increase #180 tabs 08/30/22 [Rx Confirmed 04/04/23] metoprolol succinate 50 mg tablet,extended release 24 hr 50 mg PO DAILY BLOOD PRESSURE #90 tabs 10/12/22 [Rx Confirmed 04/04/23] trazodone 100 mg tablet 100 mg PO QHS PRN insomnia #90 tabs 12/06/22 [Rx Confirmed 04/04/23] pravastatin 40 mg tablet See Rx Instructions .Route .COMPLEX #90 tabs 12/10/22 [Rx Confirmed 04/04/23] flaxseed oil 1,000 mg capsule 1,000 mg PO DAILY 03/12/23 [History Confirmed 04/04/23] PFSH Medical History 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 Bereavement counseling Bereavement due to life event COVID-19 (08/31/20) Diverticulitis Essential (primary) hypertension Generalized OA Hyperlipidemia Nonrheumatic aortic (valve) stenosis Psoriatic arthritis Sleep apnea UTI (urinary tract infection) Surgical History H/O aortic valve replacement (04/08/17) History of colonoscopy History of coronary artery stent placement (03/02/22) History of left heart catheterization (03/14/17) History of partial colectomy (~2011) History of shoulder surgery Family History Brother Heart disease AV replaced and CABG X 1 CAD (coronary artery disease) CABG x 1 w/ AVR Social History Smoking Status: Former smoker how long ago did patient quit smokin + years ago alcohol intake: current alcohol intake frequency: a few times a week Alcohol type: hard liquor substance use type: does not use caffeine: Yes Type: coffee Number of servings: 2 HPI HPI HPI: 77-year-old female. I have most recently seen her March 08, 2022. She had had a personal history of colon polyps. However at that time she had an acute placement of a drug-eluting coronary stent. My note reflects that I plan to seeher after her cardiology 6-month review. As of March 14, 2023 she was seen by Dr. Jairon Banks for pulmonology review of her asthma and obstructive sleep apnea. She appears to be controlled on currenttherapy. She was seen by ROE Rey on March 12, 2023. She has a history of aortic valve replacement with a bioprosthetic valve 2016. He says a history of coronary artery stenting. Most recent cardiac catheterization was March 02, 2022 when she had a drug-eluting stent placed into her proximal LAD diagonal. By report while she was in [place] she was seen at the [facility] extension. She had an echocardiogram showing ejection fraction of 55% with 2/3 diastolic dysfunction immediate valve gradient 12 mmHg. It is also of note that on January 25, 2023 she had a stress test that was negative for ischemia. Among her other medications she is on low-dose aspirin and Brilinta. No complaints. Occasionally dark stools. She just got back from a vacation in [place] and she is also been in [place]. She did a significant mount of walking agrees. She has some right knee problems but she denies any chest pain or shortness of breath. Her previous colonoscopy performed by Dr. David Gomez on June 07, 2016. That demonstrated 4 sessile polyps found in the ascending colon they were from 4to 7 mm in size. Recommendations at that time were for repeat colonoscopy at 3 years. Pathology demonstrated tubular adenoma. As we are currently greater than 3 years out I will recommend to the patient cardiology review at 6 months and then office follow-up to see if we could proceed with colonoscopy at that time ROS General General: Yes fatigue; No weight change, appetite, colon cancer, breast cancer or weakness HEENT HEENT: No difficulty swallowing, eye injury, eye surgery, swollen glands or hoarseness Endo Endocrine: No thyroid disease, diabetes mellitus, thyroid cancer, Hair loss, heat intolerance or cold intolerance Skin Skin: No rash or changing moles Musc Musculoskeletal: Yes arthritis; No back problems, rheumatoid arthritis, gout or joint pain Cardio Cardiovascular: Yes murmur, heart disease, high blood pressure and heart stent; No pacemaker, atrial fibrillation, heart attack, palpitations, shortness of breat with exertion or chest pain Psych Psychiatric: No depression, anxiety or hearing voices Resp Respiratory: No shortness of breath, Yes sleep apnea, Yes cough, No COPD, Yes asthma, No emphysema and No wheezing Gastro Gastrointestinal: No abdominal pain, No nausea or vomiting, Yes diarrhea, Yes constipation, No blood in stool, No acid reflux, No hemorrhoids, No ulcers, No gallbladder problem and No black,tarry stools Casey Hematologic: Yes blood thinners, No blood disorders, No bleeding, No anemia and No blood clots Neuro Neurologic: No system reviewed and no additional complaints, except as documented, No as per HPI, No abnormal gait, No abnormal hearing, No abnormal movements, No abnormal speech, No behavioral changes, No burning sensations, No confusion, No convulsions, No disequilibrium, No dizziness, No localized weakness, No frequent falls, No headache(s), No lack of coordination, No loss ofvision, No memory loss, No numbness, No other visual disturbances, No radicular pain, No restless legs, No sensory deficit, No syncope, No tingling, No tremor(s), No weakness and No other Exam Const General: cooperative, healthy appearing, comfortable and no acute distress Nutritional Appearance: overweight [facility] Head: normal to inspection Eyes General: appearance normal, both eyes and all related structures Neck Neck: normal visual inspection Chest Chest palpation & inspection: normal inspection of the chest Resp Effort & Inspection: normal respiratory effort Auscultation: clear to auscultation bilaterally Cardio Rate: regular rate Rhythm: regular rhythm GI Palpation: soft and no hepatosplenomegaly Musc Cervical Spine: normal cervical lordosis Skin General: no rashes or lesions noted Neuro General: patient alert, patient awake and patient oriented x3 Extrem General: no calf tenderness Psych Appearance: grossly normal Assessment and Plan Assessment and Plan (1) Personal history of colonic polyps: Status: Acute Plan: The patient appears to be stable both from a cardiac and pulmonary standpoint. She makes comment that previously its been recommended to her to have follow-up colonoscopies every 3-year due to the number of polyps that she has had. She isnow at 5 years. I propose for her a colonoscopy with possible biopsy or polypectomy as indicated. She is aware of the technique, benefit, risk, alternatives. It was suggested to her that she stop her Brilinta for 7 days perROE Mariano. As this is a colonoscopy we will have her hold it for 3 days. Because of her medical comorbidities we will use monitored anesthesia care. Sheis aware of the technique, benefit, risk, alternatives. She has had an opportunity to ask and have questions answered. We will schedule and proceed ather discretion. I appreciate the ongoing opportunity of assisting with her surgical care Copy: Dr. Stacey Salas M.D., F.A.C.S. I have examined the patient and the H&P has been reviewed. There are no clinicalchanges since date of exam. Bill Salas M.D., F.A.C.S. 05/07/23 0746 <Electronically signed by Bill Salas MD> Cosigner Signature (if applicable): CC: Dr. Stacey Robledo MD; Dr. Bill Salas MD~ Signed [facility] Work Phone: 1(417) 772-239708-08-2023 Procedure [facility] 05-07-2023 Procedure [facility]07-10-2023 Evaluation note* Diagnosis Onset Date Resolution Status 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 acute Dyspnea on exertion acute Palpitations acute Essential (primary) hypertension chronic H/O aortic valve replacement April 08, 2017 chronic Hyperlipidemia chronic Asthma acute JOSE (obstructive sleep apnea) chronic Personal history of colonic polyps acute 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 Work Phone: 1(902) 645-312006-03-2022 Evaluation note* Diagnosis Onset Date Resolution Status 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 acute Dyspnea on exertion acute History of coronary artery stent placement March 02 acute Essential (primary) hypertension chronic H/O aortic valve replacement April 08, 2017 chronic Hyperlipidemia chronic Asthma acute JOSE (obstructive sleep apnea) acute Asthma acute JOSE (obstructive sleep apnea) [facility] Work Phone: 1(598) 537-676906-03-2022 Evaluation note* Diagnosis Onset Date Resolution Status Admit Date History of coronary artery stent placement March 02, 2022 acute August 17, 2 024 1:48pm Preop exam for internal medicine acute August 17, 2 024 1:48pm Pruritus acute August 17, 2024 1:48pm Sleep apnea acute July 1:48pm Essential (primary) hypertension chronic August 17, 2 024 1:48pm H/O aortic valve replacement April 08, 2017 ch ronic August 17, 2024 1:48pm Hyperlipidemia chronic July 312023 1:48pm Nonrheumatic aortic (valve) stenosis chronic August 17, 2 024 1:48pm JOSE (obstructive sleep apnea) chroni c August 17, 2024 1:48pm 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 Work Phone: [phone] NoteHNO ID: [id number] Author: Ivett Kong Population Health Navigator Service: ? Author Type: ? Type: Progress Notes Filed: 09/11/2021 1:26 PM Note Text: POPULATION HEALTH NAVIGATION OUTREACH Action/FYI I sent patient a my chart message re: pcp No care everywhere Contact made with patient or family member? NO Pt identified by name and : {NO Outreach Outcome/Action Sent a my chart message Reason for Outreach Offboarding Payer: Payor: MEDICARE / Plan: MEDICARE A AND B / Product Type: Medicare / Care Gap Reviewed:: Reminder: Reminder note to check Health Maintenance for items below Health Maintenance items due: Advanced Directives Completed: Have you ever planned for future healthcare decisions with a power of title attorney, living will, or advance directives? NO Referrals: N/A Message Sent to Practice: NO Navigation Signature: Ivett Kong Population Health Navigator September 11, 2021 1:23 [facility]12-13-2021 NotePatient Outreach (NETNAV) KARYN MULLER ([id number]) 1945 F Date Time Provider Department 09/11/21 IVETT KONG During your visit today, we recorded the following information about you: Ivett Kong Population Health Navigator 09/11/2021 1:26 PM Signed POPULATION HEALTH NAVIGATION OUTREACH Action/FYI I sent patient a my chart message re: pcp No care everywhere Contact made with patient or family member? NO Pt identified by name and : {NO Outreach Outcome/Action Sent a my chart message Reason for Outreach Offboarding Payer: Payor: MEDICARE / Plan: MEDICARE A AND B / Product Type: Medicare / Care Gap Reviewed:: Reminder: Reminder note to check Health Maintenance for items below Health Maintenance items due: Advanced Directives Completed: Have you ever planned for future healthcare decisions with a power of title attorney, living will, or advance directives? NO Referrals: N/A Message Sent to Practice: NO Navigation Signature: Ievtt Garcia Alexandro Population Health Navigator September 11, 2021 1:23 PM Allergies As of Date: 09/11/2021 Noted Allergy Reaction MELOXICAM 03/16/2009 6 - Diarrhea METHOTREXATE 05/17/2008 6 - Diarrhea NSAIDS (NON-STEROIDAL ANTI-INFLAM*05/17/2008 5 - Intolerance Comments: Aggravates colitis SULFABENZAMIDE 12/09/2007 6 - Diarrhea Date Reviewed: 10/07/2020 Reviewed by: Taryn Duque Ma - Fully Assessed Reason for Visit: Population Health Navigation Outreach [3910] Cmt: Offboarding Prescriptions as of 09/11/2021 - metoprolol succinate ER (TOPROL XL) 50 mg 24 hr tablet TAKE 1 TABLET BY MOUTH EVERY DAY - pravastatin (PRAVACHOL) 40 mg tablet Take 1 tablet by mouth once daily. - zinc sulfate (ZINC-220) 220 (50) mg capsule Take 1 capsule by mouth once daily. - HYZAAR 50-12.5 mg per tablet TAKE 1 TABLET BY MOUTH TWICE A DAY - cholecalciferol, Vitamin D3, (VITAMIN D3) 1,250 mcg (50,000 unit) cap capsule Take 1 capsule by mouth one time a week. - predniSONE (DELTASONE) 10 mg tablet Take by mouth 4 tabs daily x 3 days, then 3 tabs x 3 days, 2 tabs x 3 days, then 1 tab x3 days with food. - melatonin 10 mg tab Take 10 mg by mouth once daily. - VITAMIN B COMPLEX ORAL Take by mouth once daily. - triamcinolone acetonide (KENALOG) 0.1 % cream Apply 1 application to affected area as needed. Apply sparingly to area for rash/itching. - Ascorbic Acid (VITAMIN C) 1,000 mg tablet Take 3 tablets twice daily - cyanocobalamin (VITAMIN B-12) 1,000 mcg Tab Take 1,000 mcg by mouth once daily. - CALCIUM CARBONATE (CALCIUM 300 ORAL) Take by mouth. - FLAXSEED OIL 1,000 MG CAP Take one(1) tablet two(2) times daily. - aspirin(ECOTRIN LOW STRENGTH 81 MG TAB) Take one(1) tablet daily. - acetaminophen(TYLENOL ARTHRITIS 650 MG TAB) Tkae 2 tablets in the morning AND 2 tablets in the evening. - MULTIVITAMIN TAB Take one(1) tablet daily. Problem List As Of Date 09/11/2021 Noted Resolved Loss of weight [R63.4] 12/09/2007 08/05/2013 Diarrhea [R19.7] 12/25/2007 08/05/2013 Acute gastritis without mention of hemorrhage [*01/26/2008 08/05/2013 Diaphragmatic hernia without mention of obstruc*01/26/2008 08/05/2013 Sciatica [M54.30] 01/07/2009 12/28/2016 Thoracic or lumbosacral neuritis or radiculitis*01/07/2009 07/05/2016 Neuralgia, neuritis, and radiculitis, unspecifi*01/07/2009 07/05/2016 Actinic Keratosis (Premalignant AK) [L57.0] 07/05/2010 08/05/2013 Solar lentigo [L81.4] 07/05/2010 08/12/2015 Seborrheic Keratosis [L82.1] 07/05/2010 08/12/2015 Actinic Damage//Sun-Damaged Skin [L57.8] 07/05/2010 08/12/2015 Psoriasis [L40.8] 07/05/2010 Irritated//Inflamed Seborrheic Keratoses [L82.0]07/05/2010 08/12/2015 Melanocytic nevus of trunk: Intradermal Nevi: b*07/05/2010 Diverticulitis [K57.92] 08/12/2015 Diverticulitis of colon [K57.32] 10/09/2011 07/05/2016 Hypertension goal BP (blood pressure) < 140/90 *06/22/2013 Lumbar radiculopathy [M54.16] 06/24/2013 07/05/2016 Degeneration of lumbar or lumbosacral intervert*06/04/2014 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072] 05/09/2017 Ulcerative colitis without complications (HCC) *09/12/2017 COVID-19 [U07.1] 09/02/2020 Encounter Status:Closed by ALEXANDRO LOPEZ (more content not included)...[facility]07-10-2017 Evaluation note* Diagnosis Onset Date Resolution Status Dyspnea on exertion acute Sleep apnea acute Essential (primary) hypertension chronic H/O aortic valve replacement April 08, 2017 chronic Hyperlipidemia chronic 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 acute Dyspnea on exertion acute Essential (primary) hypertension chronic H/O aortic valve replacement April 08, 2017 [facility] Work Phone: [phone]) 668-197107-10-2017 Evaluation note* Diagnosis Onset Date Resolution Status Dyspnea on exertion acute Sleep apnea acute Essential (primary) hypertension chronic H/O aortic valve replacement April 08, 2017 chronic Hyperlipidemia chronic 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 acute Dyspnea on exertion acute Essential (primary) hypertension chronic H/O aortic valve replacement April 08, 2017 chronic History of coronary artery stent placement March 02 022 acute Essential (primary) hypertension chronic H/O aortic valve replacement April 08, 2017 [facility] Work Phone: [phone]) 708-126507-10-2017 Evaluation note* Diagnosis Onset Date Resolution Status Dyspnea on exertion acute Sleep apnea acute Essential (primary) hypertension chronic H/O aortic valve replacement April 08, 2017 chronic Hyperlipidemia chronic 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 acute Dyspnea on exertion acute Essential (primary) hypertension chronic H/O aortic valve replacement April 08, 2017 chronic History of coronary artery stent placement March 02 acute Essential (primary) hypertension chronic H/O aortic valve replacement April 08, 2017 chronic History of coronary artery stent placement March 02 acute Screening for intestinal cancer acute 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 acute Dyspnea on exertion acute History of coronary artery stent placement March 02 acute Essential (primary) hypertension chronic H/O aortic valve replacement April 08, 2017 chronic Hyperlipidemia [facility] Work Phone: [phone]) 928-261007-10-2017 Evaluation note* Diagnosis Onset Date Resolution Status Dyspnea on exertion acute Sleep apnea acute Essential (primary) hypertension chronic H/O aortic valve replacement April 08, 2017 chronic Hyperlipidemia chronic 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 acute Dyspnea on exertion acute Essential (primary) hypertension chronic H/O aortic valve replacement April 08, 2017 chronic History of coronary artery stent placement March 02 acute Essential (primary) hypertension chronic H/O aortic valve replacement April 08, 2017 chronic History of coronary artery stent placement March 02 acute Screening for intestinal cancer acute 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 acute Dyspnea on exertion acute History of coronary artery stent placement March 02 022 acute Essential (primary) hypertension chronic H/O aortic valve replacement April 08, 2017 chronic Hyperlipidemia chronic Asthma acute JOSE (obstructive sleep apnea) [facility] Work Phone: Evaluation note* Diagnosis Onset Date Resolution Status Asthma acute JOSE (obstructive sleep apnea) acute Asthma acute JOSE (obstructive sleep apnea) acute 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 acute Chronic GERD chronic Essential (primary) hypertension chronic H/O aortic valve replacement April 08, 2017 chronic Hyperlipidemia [facility] Work Phone: Evaluation note* Diagnosis Onset Date Resolution Status Asthma acute JOSE (obstructive sleep apnea) chronic Asthma acute JOSE (obstructive sleep apnea) chronic 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 acute Chronic GERD chronic Essential (primary) hypertension chronic H/O aortic valve replacement April 08, 2017 chronic Hyperlipidemia chronic Asthma acute JOSE (obstructive sleep apnea) chronic 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 acute History of coronary artery stent placement March 02 022 acute Essential (primary) hypertension chronic Fatigue chronic H/O aortic valve replacement April 08, 2017 chronic Hyperlipidemia [facility] Work Phone: Evaluation note* Diagnosis Onset Date Resolution Status 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: [phone] Work Phone: [phone] Work Phone: [phone] Work Phone: [phone] Work Phone: [phone] Work Phone: [phone] Discharge instructionsAmbulatory Orders* Orthopedics Location: None Selected [facility] Work Phone: Summary Purpose Family History No Family History Records Found Relationship Condition Age at Onset Recorded Date/T amber brother Cardiac disease Unknown Coronary artery disease Unknown Advance Directives No Advanced Directives Records Found Advance Directive Response Recorded Date/ Time Advance Directives No March 01 8:47am Living Will No March 01, 2022 8 :47am Power of Galvanizer [employer] No March 01, 2022 8:47am Advance Directive Response Recorded Date/ Time Advance Directives Yes March 02 9:33am Living Will Yes March 02, 2022 9 :33am Power of [employer] Yes March 02, 2022 9:33am Advance Directive Response Recorded Date/ Time Advance Directives on File Yes March 02, 2022 9:33am Name of Medical Power of Galvanizer [employer]inc ashlee abbott March 02, 2022 9:33am Advance Directives Yes March 02 9:33am Living Will Yes March 02, 2022 9 :33am Power of [employer] Yes March 02, 2022 9:33am Advance Directive Response Recorded Date/ Time Advance Directives on File Yes March 02, 2022 9:33am Name of Medical Power of [employer] ashlee abbott March 02, 2022 9:33am Advance Directives on File Yes April 16, 2022 11:25am Advance Directives Yes March 02 9:33am Living Will Yes April 16, 2022 11:25am Power of [employer] Yes April 16 11:25am Advance Directive Response Recorded Date/ Time Advance Directives on File Yes April 16, 2022 11:25am Advance Directives Yes March 02 9:33am Living Will Yes April 16, 2022 11:25am Power of [employer] Yes April 16 11:25am Advance Directive Response Recorded Date/ Time Advance Directives Yes September 07, 2022 4:12pm Living Will No September 10 12:17pm Power of [employer]izer [employer] No September 10, 2022 12:17pm Advance Directive Response Recorded Date/ Time Advance Directives Yes September 07, 2022 5:12pm Living Will Yes May 03, 2023 3:42pm Power of [employer] No May 03 3:42pm Advance Directive Response Recorded Date/ Time Living Will Yes May 03, 2023 3:42pm Power of [employer] No May 03 3:42pm Advance Directives Yes May 01 9:54am Advance Directive Response Recorded Date/ Time Living Will Yes May 03, 2023 3:42pm Do you have a Healthcare Power of Galvanizer Zinc? No May 03, 2023 3:42pm Advance Directives Yes May 01 9:54am Chief Complaint and Reason for Visit Chief Complaint 8 month f/u 6 M FU/PER PCP CHEST PAIN Reason for Visit Dyspnea on exertion Sleep apnea Essential (primary) hypertension H/O aortic valve replacement Hyperlipidemia 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 Dyspnea on exertion Essential (primary) hypertension H/O aortic valve replacement Chief Complaint 8 month f/u 6 M FU/PER PCP CHEST PAIN RIOS CAD RIOS CAD Reason for Visit Dyspnea on exertion Sleep apnea Essential (primary) hypertension H/O aortic valve replacement Hyperlipidemia 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 Dyspnea on exertion Essential (primary) hypertension H/O aortic valve replacement History of coronary artery stent placement Essential (primary) hypertension H/O aortic valve replacement Chief Complaint 8 month f/u 6 M FU/PER PCP CHEST PAIN RIOS CAD RIOS CAD RIOS CAD SLEEP APNEA 3 Y FOLLOW UP COLON RESECTION/CSCOPE F/U from [facility] Reason for Visit Dyspnea on exertion Sleep apnea Essential (primary) hypertension H/O aortic valve replacement Hyperlipidemia 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 Dyspnea on exertion Essential (primary) hypertension H/O aortic valve replacement History of coronary artery stent placement Essential (primary) hypertension H/O aortic valve replacement History of coronary artery stent placement Screening for intestinal cancer 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 Dyspnea on exertion History of coronary artery stent placement Essential (primary) hypertension H/O aortic valve replacement Hyperlipidemia Chief Complaint 8 month f/u 6 M FU/PER PCP CHEST PAIN RIOS CAD RIOS CAD RIOS CAD SLEEP APNEA 3 Y FOLLOW UP COLON RESECTION/CSCOPE F/U from [facility] PCI w/coronary stenting SLEEP APNEA Reason for Visit Dyspnea on exertion Sleep apnea Essential (primary) hypertension H/O aortic valve replacement Hyperlipidemia 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 Dyspnea on exertion Essential (primary) hypertension H/O aortic valve replacement History of coronary artery stent placement Essential (primary) hypertension H/O aortic valve replacement History of coronary artery stent placement Screening for intestinal cancer 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 Dyspnea on exertion History of coronary artery stent placement Essential (primary) hypertension H/O aortic valve replacement Hyperlipidemia Chief Complaint 8 month f/u 6 M FU/PER PCP CHEST PAIN RIOS CAD RIOS CAD RIOS CAD SLEEP APNEA 3 Y FOLLOW UP COLON RESECTION/CSCOPE F/U from [facility] PCI w/coronary stenting SLEEP APNEA PCI w/coronary stenting Reason for Visit Dyspnea on exertion Sleep apnea Essential (primary) hypertension H/O aortic valve replacement Hyperlipidemia 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 Dyspnea on exertion Essential (primary) hypertension H/O aortic valve replacement History of coronary artery stent placement Essential (primary) hypertension H/O aortic valve replacement History of coronary artery stent placement Screening for intestinal cancer 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 Dyspnea on exertion History of coronary artery stent placement Essential (primary) hypertension H/O aortic valve replacement Hyperlipidemia Chief Complaint 8 month f/u 6 M FU/PER PCP CHEST PAIN RIOS CAD RIOS CAD RIOS CAD SLEEP APNEA 3 Y FOLLOW UP COLON RESECTION/CSCOPE F/U from [facility] PCI w/coronary stenting SLEEP APNEA PCI w/coronary stenting 1 Y FU PCI w/coronary stenting Reason for Visit Dyspnea on exertion Sleep apnea Essential (primary) hypertension H/O aortic valve replacement Hyperlipidemia 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 Dyspnea on exertion Essential (primary) hypertension H/O aortic valve replacement History of coronary artery stent placement Essential (primary) hypertension H/O aortic valve replacement History of coronary artery stent placement Screening for intestinal cancer 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 Dyspnea on exertion History of coronary artery stent placement Essential (primary) hypertension H/O aortic valve replacement Hyperlipidemia Asthma JOSE (obstructive sleep apnea) Chief Complaint RIOS CAD RIOS CAD RIOS CAD SLEEP APNEA 3 Y FOLLOW UP COLON RESECTION/CSCOPE F/U from [facility] PCI w/coronary stenting SLEEP APNEA PCI w/coronary stenting 1 Y FU PCI w/coronary stenting 6 W FU PCI w/coronary stenting Reason for Visit History of coronary artery stent placement Essential (primary) hypertension H/O aortic valve replacement History of coronary artery stent placement Screening for intestinal cancer 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 Dyspnea on exertion History of coronary artery stent placement Essential (primary) hypertension H/O aortic valve replacement Hyperlipidemia Asthma JOSE (obstructive sleep apnea) Asthma JOSE (obstructive sleep apnea) Chief Complaint F/U from [facility] PCI w/coronary stenting SLEEP APNEA PCI w/coronary stenting 1 Y FU PCI w/coronary stenting 6 W FU PCI w/coronary stenting PCI w/coronary stenting OBSTRUCTIVE SLEEP APNEA Reason for Visit Atherosclerotic hear t disease [place] coronary artery w/angina pectoris Dyspnea on exertion History of coronary artery stent placement Essential (primary) hypertension H/O aortic valve replacement Hyperlipidemia Asthma JOSE (obstructive sleep apnea) Asthma JOSE (obstructive sleep apnea) Chief Complaint PCI w/coronary stent ing SLEEP APNEA PCI w/coronary stenting 1 Y FU PCI w/coronary stenting 6 W FU PCI w/coronary stenting OBSTRUCTIVE SLEEP APNEA PCI w/coronary stenting Trouble sleeping, not feeling well Reason for Visit Asthma JOSE (obstructive sleep apnea) Asthma JOSE (obstructive sleep apnea) 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 Chronic GERD Essential (primary) hypertension H/O aortic valve replacement Hyperlipidemia Chief Complaint 1 Y FU PCI w/coronary stenting 6 W FU PCI w/coronary stenting OBSTRUCTIVE SLEEP APNEA PCI w/coronary stenting Trouble sleeping, not feeling well 2 M FU 1 y fu/ had to r/s from [employer] d/t leaving state lower extremity Reason for Visit Asthma JOSE (obstructive sleep apnea) Asthma JOSE (obstructive sleep apnea) 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 Chronic GERD Essential (primary) hypertension H/O aortic valve replacement Hyperlipidemia Asthma JOSE (obstructive sleep apnea) 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 History of coronary artery stent placement Essential (primary) hypertension Fatigue H/O aortic valve replacement Hyperlipidemia Chief Complaint 6 M FU 5 m fu RECALL LETTER- COLONOSCOPY Reason for Visit Atherosclerotic hear t disease [place] coronary artery w/angina pectoris Dyspnea on exertion Palpitations Essential (primary) hypertension H/O aortic valve replacement Hyperlipidemia Asthma JOSE (obstructive sleep apnea) Personal history of colonic polyps Chief Complaint E-ORDER EORDER Annual/Physical Reason for Visit Atherosclerotic hear t disease [place] coronary artery w/angina pectoris Right knee DJD Right knee pain Essential (primary) hypertension H/O aortic valve replacement Hyperlipidemia JOSE (obstructive sleep apnea) Chief Complaint Admit Date Rash August 17, 2024 1:48pm 6 M FU August 31, 2024 1 1:08am CONCERN FOR UTI December 01, 2024 2:22 pm OSTEOARTHRITIS RT KNEE, RX HERE November 12:00pm Reason for Visit Admit Date History of coronary artery stent placeme nt August 17, 2024 1:48pm Preop exam for internal medicine Novembe r 2023 1:48pm Pruritus August 17, 2024 1:48pm Sleep apnea August 17, 2024 1:48pm Essential (primary) hypertension Novembe r 2023 1:48pm H/O aortic valve replacement August 172023 1:48pm Hyperlipidemia August 17, 2024 1:48pm Nonrheumatic aortic (valve) stenosis Nov ember 2023 1:48pm JOSE (obstructive sleep apnea) July 312023 1:48pm 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 August 31, 2024 11:08am Preop cardiovascular exam August 31, 2024 11:08am Essential (primary) hypertension Decembe r 2023 11:08am H/O aortic valve replacement August 11:08am Hyperlipidemia August 31, 2024 1 1:08am Chief Complaint Admit Date CONCERN FOR UTI December 01, 2024 2:22 pm OSTEOARTHRITIS RT KNEE, RX HERE November 12:00pm Groin Pain December 30, 2024 9:35 am LEFT HIP PAIN. RX HERE January 22, 2025 9:30am 1 Y FU March 16, 2025 3:17 pm Reason for Visit Admit Date Left hip pain December 30, 2024 9:35 am Chief Complaint Admit Date CONCERN FOR UTI December 01, 2024 2:22 pm OSTEOARTHRITIS RT KNEE, RX HERE November 12:00pm Groin Pain December 30, 2024 9:35 am LEFT HIP PAIN. RX HERE January 22, 2025 9:30am 1 Y FU March 16, 2025 3:17 pm 1 Y FU March 23, 2025 2:25 pm Reason for Visit Admit Date Left hip pain December 30, 2024 9:35 am Asthma March 16, 2025 3:17 pm JOSE (obstructive sleep apnea) March 16, 2025 3:17pm Overweight March 16, 2025 3:17 pm Additional Source Comments INFORMATION SOURCE (unrecogn ized section and content) DATE CREATED AUTHOR 12/17/2021 [facility] DATE CREATED AUTHOR AUTHOR'S ORGANIZ ATION 03/25/2025 [facility] Goals (unrecognized section and content) Goals may be documented in a n alternate sectionGoals may be documented in an alternate sectionGoals may be documented in an alternate sectionGoals may be documented in an alternate sectionGoals may be documented in an alternate sectionGoals may be documented in an alternate sectionGoals may be documented in an alternate sectionGoals may be documented in an alternate sectionGoals may be documented in an alternate sectionGoals may be documented in an alternate sectionGoals may be documented in an alternate section Care Teams (unrecognized sec tion and content) Team Status: Active Member Role Status Dates Dr. Dori Salas III, MD Family Provider Active Dr. Stacey Robledo MD Primary Care Provider Active Team Status: Inactive Member Role Status Dates Dr. Stacey Robledo MD Primary Care Provider, Referri ng Provider Active Paul Goodman AGRICULTURAL SCIENCES PROFESSOR, AGRICULTURAL SCIENCES PROFESSOR-C Attending Provider Active Team Status: Inactive Member Role Status Dates Dr. Stacey Robledo MD Primary Care Provider, Referri ng Provider Active Dr. Jairon Banks DO Attending Provider Active Team Status: Inactive Member Role Status Dates Dr. Stacey Robledo MD Primary Care Provider, Referri ng Provider Active Dr. Bill Salas MD Attending Provider Active Team Status: Active Member Role Status Dates Dr. Stacey Robledo MD Primary Care Provider, Referri ng Provider Active Dr. Bill Salas MD Attending Provider, Other Prov ider Active Team Status: Inactive Member Role Status Dates Dr. Stacey Robledo MD Primary Care Provider, Attendi ng Provider Active Team Status: Inactive Member Role Status Dates Dr. Stacey Robledo MD Primary Care Provider Active Rose Díaz NP, AGRICULTURAL SCIENCES PROFESSOR-C Attending Provider, Referring P cheikh Active Team Status: Active Member Role Status Dates Dr. Stacey Robledo MD Primary Care Pro vider, Attending Provider, Referring Provider Active Team Status: Inactive Member Role Status Dates Dr. Stacey Robledo MD Primary Care Pro vider, Attending Provider, Referring Provider Active Team Status: Active Member Role Status Dates Dr. Stacey Robledo MD Primary Care Provider Active Team Status: Inactive Member Role Status Dates Dr. Stacey Robledo MD Primary Care Provider Active Start: August 17, 2024 End: August 17, 2024 Dr. Stacey Robledo MD Attending Provider Active Start: August 17, 2024 End: August 17, 2024 Team Status: Inactive Member Role Status Dates Dr. Stacey Robledo MD Primary Care Provider Active Start: August 31, 2024 End: August 31, 2024 Dr. Stacey Robledo MD Referring Provider Active Start: August 31, 2024 End: August 31, 2024 Paul Goodman AGRICULTURAL SCIENCES PROFESSOR, AGRICULTURAL SCIENCES PROFESSOR-C Attending Provider Active S tart: August 31, 2024 End: August 31, 2024 Team Status: Inactive Member Role Status Dates Dr. Stacey Robledo MD Primary Care Provider Active Start: December 01, 2024 End: December 01, 2024 Dr. Stacey Robledo MD Referring Provider Active Start: December 01, 2024 End: December 01, 2024 Deondre Philip PA, PA Attending Provider Active Start: December 01, 2024 End: December 01, 2024 Team Status: Active Member Role Status Dates Dr. Stacey Robledo MD Primary Care Provider Active Start: December 01, 2024 Dr. Stacey Robledo MD Attending Provider Active Start: December 01, 2024 Team Status: Inactive Member Role Status Dates Dr. Stacey Robledo MD Primary Care Provider Active Start: December 04, 2024 End: December 04, 2024 Dr. Daniel Lim MD Attending Provider Active Start: December 04, 2024 End: December 04, 2024 Dr. Daniel Lim MD Referring Provider Active Start: December 04, 2024 End: December 04, 2024 Team Status: Inactive Member Role Status Dates Dr. Stacey Robledo MD Primary Care Provider Active Start: December 01, 2024 End: December 01, 2024 Dr. Stacey Robledo MD Attending Provider Active Start: December 01, 2024 End: December 01, 2024 Team Status: Inactive Member Role Status Dates Dr. Stacey Robledo MD Primary Care Provider Active Start: December 30, 2024 End: December 30, 2024 Dr. Stacey Robledo MD Attending Provider Active Start: December 30, 2024 End: December 30, 2024 Team Status: Inactive Member Role Status Dates Dr. Stacey Robledo MD Primary Care Provider Active Start: January 22, 2025 End: January 22, 2025 Dr. Stacey Robledo MD Attending Provider Active Start: January 22, 2025 End: January 22, 2025 Dr. Stacey Robledo MD Referring Provider Active Start: January 22, 2025 End: January 22, 2025 Team Status: Inactive Member Role Status Dates Dr. Stacey Robledo MD Primary Care Provider Active Start: March 16, 2025 End: March 16, 2025 Dr. Stacey Robledo MD Referring Provider Active Start: March 16, 2025 End: March 16, 2025 Rosibel Suh NP, AGRICULTURAL SCIENCES PROFESSOR-C Attending Provider Active Start: March 16, 2025 End: March 16, 2025 Team Status: Inactive Member Role Status Dates Dr. Stacey Robledo MD Primary Care Provider Active Start: March 23, 2025 End: March 23, 2025 Dr. Stacey Robledo MD Referring Provider Active Start: March 23, 2025 End: March 23, 2025 Dr. Yong Mora MD Attending Provider Active S tart: March 23, 2025 End: March 23, 2025 FOR RECORDS PERTAINING TO PATIENTS WHO ARE OR HAVE BEEN ENROLLED IN A CHEMICAL DEPENDENCY/SUBSTANCEABUSE PROGRAM, SOME INFORMATION MAY BE OMITTED. This clinical summary was aggregated from multiple sources. Caution should be exercised in using it in the provision of clinical care. This summary normalizes information from multiple sources, and as a consequence, information in this document may materially change the coding, format and clinical context of patient data. In addition, data may be omitted in some cases. CLINICAL DECISIONS SHOULD BE BASED ON THE PRIMARY CLINICAL RECORDS. [facility] [employer] provides no warranty or guarantee of the accuracy or completeness of information in this document.
== END | disposition home or self-care (01) ==
LOC: CVS 11:01
PROVIDERS: PCP Internal Medicine; Referring Provider Internal Medicine Cardiovascular Disease; Visit Provider Internal Medicine Cardiovascular Disease
DX: I35.0 Nonrheumatic aortic (valve) stenosis (principal)
CPT/HCPCS: 93306

== ENCOUNTER → 2025-06-21 | Outpatient (CLI) | payer MEDICARE, OTHER, SELFPAY ==
[2024-05-01 09:54] VITALS: BMI 28.5
--- OUTSIDE RECORDS SUMMARY | 2025-06-21 20:13 | XMS RPT_ITS | CCD ---
Author Organization [facility] Care Team Providers Care [employer] Name Role Phone Breonna Marrero Unavailable Unavailable Cayla RN, Evelin Ruth Unavailable Unavailable Cayla ALFARO, Evelin Ruth Unavailable Unavailable ALEXANDRE Barone, Stefania Guzman Unavailable [phone] Cayla ALFARO, Evelin Ruth Unavailable Unavailable Dr. Saqib Juárez Primary Care Provider Dr. Saqib Juárez Attending Provider [phone] Dr. Saqib Juárez Referring Provider [phone] Dr. Yong Mora Attending Provider [phone] Yong Mora Admit Provider Dr. Yong Mora Referring Provider [phone] Yong Mora Other Provider Dr. Yong Mora Referring Provider Dr. Bill Salas Attending Provider Rex RECREATION SUPERVISOR, RECREATION SUPERVISOR-C Paul Ferguson Attending Provider Dr. Saqib Juárez Primary Care Provider Dr. Saqib Juárez Attending Provider [phone] Dr. Saqib Juárez Referring Provider [phone] Dr. Jairon Banks Attending Provider Dr. Saqib Juárez Primary Care Provider Dr. Yong Mora Attending Provider Dr. Saqib Juárez Referring Provider [phone] Vikash RECREATION SUPERVISOR, RECREATION SUPERVISOR-C Rosibel Attending Provider Dr. Saqib Juárez Primary Care Provider Dr. Saqib Juárez Referring Provider [phone] Dr. Yong Mora Attending Provider Vikash RECREATION SUPERVISOR, RECREATION SUPERVISOR-C Rosibel Referring Provider Dr. Saqib Juárez Primary Care Provider Dr. Saqib Juárez Referring Provider [phone] Dr. Saqib Juárez Attending Provider [phone] Dr. Saqib Juárez Primary Care Provider Dr. Saqib Juárez Referring Provider [phone] Dr. Jairon Banks Attending Provider Suh RECREATION SUPERVISOR, RECREATION SUPERVISOR-C Rosibel Attending Provider [phone] Vikash RECREATION SUPERVISOR, RECREATION SUPERVISOR-C Rosibel Referring Provider [phone] Dr. Saqib Juárez Attending Provider [phone] Rex RECREATION SUPERVISOR, RECREATION SUPERVISOR-C Paul Ferguson Attending Provider Dr. Saqib Juárez Primary Care Provider Dr. Saqib Juárez Referring Provider Rex RECREATION SUPERVISOR, RECREATION SUPERVISOR-C Paul Ferguson Attending Provider Dr. Jairon Banks Attending Provider Dr. Bill Salas Attending Provider Dr. Bill Salas Other Provider Dr. Saqib Juárez Primary Care Provider Dr. Saqib Juárez Attending Provider Dr. Saqib Juárez MD Primary Care Provider Dr. Saqib Juárez MD Attending Provider Dr. Saqib Juárez MD Referring Provider Roof RECREATION SUPERVISOR-C, Paul Ferguson Attending Provider Cedrick ARBOLEDA, Deondre Guzman Attending Provider Carina DOOLEY, Dr. Daniel Guzman Attending Provider Carina DOOLEY, Dr. Daniel Guzman Referring Provider Meena DOOLEY, Dr. Ibarra Primary Care Provider [phone] Meena DOOLEY, Dr. Ibarra Referring Provider Meena DOOLEY, Dr. Ibarra Attending Provider Vikash RECREATION SUPERVISOR-C, Rosibel Attending Provider Abby DOOLEY, Dr. Beach Attending Provider Abby DOOLEY, Dr. Baech Referring Provider Meena DOOLEY, Dr. Ibarra Primary Care Provider [phone] Meena DOOLEY, Dr. Ibarra Attending Provider Meena DOOLEY, Dr. Ibarra Referring Provider Meena DOOLEY, Dr. Ibarra Primary Care Physician Meena DOOLEY, Dr. Ibarra Referring Provider Vikash RECREATION SUPERVISOR-C, Rosibel Attending Physician Abby DOOLEY, Dr. Beach Attending Physician Meena DOOLEY, Dr. Ibarra Attending Physician [phone] Meena, Saqib Primary Care Unavailable Daniel Lim Attending Unavailable Daniel Lim Referring Unavailable Meena, Saqib Attending Unavailable Meena, Saqib Primary Care Unavailable Meena, Saqib Attending Unavailable Meena, Saqib Referring Unavailable Meena, Saqib Primary Care Unavailable Abby, [place] Attending Unavailable Abby, Yong Referring Unavailable Meena, Saqib Primary Care Unavailable Meena, Saqib Primary Care Unavailable Suh RECREATION SUPERVISOR, Rosibel Attending Unavailable Vikash RECREATION SUPERVISOR, Rosibel Referring Unavailable Abby, [place] Attending Unavailable Meena, Saqib Referring Unavailable Meena, Saqib Primary Care Unavailable Meena, Saqib Attending Unavailable Meena, Saqib Primary Care Unavailable Abby, Yong Attending Unavailable Meena, Saqib Primary Care Unavailable Suh RECREATION SUPERVISOR, Rosibel Attending Unavailable Meena, Saqib Referring Unavailable Meena, Saqib Primary Care Unavailable Meena, Saqib Primary Care Unavailable Saqib Juárez Attending Unavailable Rex DU, Paul Ferguson Attending Unavailable Meena, Saqib Referring Unavailable Meena, Saqib Primary Care Unavailable Deondre Fish Attending Unavailable Meena, Saqib Referring Unavailable Meena, Saqib Primary Care Unavailable MeenaSaqib Attending Unavailable Meena, Saqib Primary Care Unavailable Vikash DU, Rosibel Attending Unavailable Meena, Saqib Referring Unavailable Meena, Saqib Primary Care Unavailable Meena, Saqib Primary Care Unavailable Obed Medina Attending Unavailable Obed Medina Referring Unavailable Allergies Allergy Classification Reported Allergen(s) Allergy Type Date of Onset Reaction(s) Facility (5 sources) atorvastatin Drug Allergy 7 myalgia [facility] Work Phone: [phone] (20 sources) meloxicam; Translations: [meloxicam] Drug Allergy 7 Nausea [facility] Work Phone: [phone] (20 sources) methotrexate; Translations: [methotrexate] Drug Allergy 7 Nausea [facility] Work Phone: [phone] (5 sources) NSAIDs drug allergy 7 GI symptoms [facility] Work Phone: [phone] (5 sources) Sulfonamides (Antibiotic) drug allergy 7 Nausea [facility] Work Phone: (20 sources) Sulfonamides (Antibiotic); Translations: [Sulfa (Sulfonamide Antibiotics)] Propensity to adverse reactions 2 Nausea [facility] (20 sources) NSAIDS (Non-Steroidal Anti-Inflamma; Translations: [NSAIDS (Non-Steroidal Anti-Inflamma] Propensity to adverse reactions 2 Nausea [facility] Medications Current Medications Medication Drug Class(es) Dates Sig (Normalized) Sig (Original) 8 hr acetaminophen 650 mg extended release oral tablet (20 sources) Start: 02-22-2022 take 2 tablets by mouth every twelve hours Acetaminophen 650 mg tablet extended release Active 1300 mg PO Q12H February 22, 2022 11:35am arthritis Complies with drug therapy Start: 02-22-2022 take 1300 mg by mout [...] 06, 2017 12:00am February 22, 2022 11:35am [id number] 200 actuat albuterol 0.09 mg/actuat metered dose inhaler (20 sources) beta2-Adrenergic Agonist Start: 02-23-2021 End: 05-17-2022 Albuterol Sulfate 90 mcg/actuation HFA aerosol inhaler Active 2 NMA INHALATION Q4H as needed for shortness of breath or wheezing 8.5 3 May 17, 2022 7:14am administer with spacer Complies with drug therapy Start: 02-23-2021 End: 05-17-2022 take 1 puff(s) by inhalation every four hours Albuterol Sulfate Active 2 PUFF INHALATION Q4H 8.5 May 17, 2022 7:14am administer with spacer Start: 04-29-2017 End: 05-21-2017 VENTOLIN HFA 108 (90 Base) M CG/ACT AERS As needed - 90mcg/inh ALBUTEROL SULFATE [id number] Wil Rivas MD Start: 04-16-2017 End: 10-02-2017 Albuterol Sulfate 1 INHALER inhaler Discontinued 1 - 2 NMA INHALATION EVERY 4 HOURS NEEDED as needed for Dyspnea, wheezing 1 0 April 16, 2017 12:00am October 02, 2017 8:16pm Start: 04-16-2017 End: 10-02-2017 take 1 puff(s) by inhalation every four hours as needed Albuterol Sulfate Discontinued 1 - 2 PUFF INHALATION EVERY 4 HOURS NEEDED April 16, 2017 12:00am October 02, 2017 8:16pm ascorbic acid 1000 mg oral tablet (20 sources) Start: 12-30-2024 take 1 g by mouth once daily Ascorbic Acid (Vitamin C) 1,000 mg tablet Active 1 g PO daily December 30, 2024 9:39am vitamin Complies with drug therapy Start: 02-10-2021 End: 12-30-2024 take 1 g by mouth twice daily Ascorbic Acid (Vitamin C ) 1,000 mg tablet Discontinued 1 g PO TWICE A DAY February 10, 2021 12:00am December 30, 2024 9:40am vitamin Start: 02-10-2021 take 1 g by mouth [...] 02, 2017 12:00am September 14, 2019 2:17pm SUPPLEMENT Start: 05-02-2017 End: 09-14-2019 take 2000 mg by mouth once daily Ascorbic Acid (Vitamin C) Discontinued 2000 MG PO DAILY May 02, 2017 12:00am September 14, 2019 2:17pm Start: 04-30-2017 take 1 tablet by sage twice daily VITAMIN C 1000 MG TABS One tablet by mouth twice daily ASCORBIC ACID [id number] Breonna Marrero Start: 04-30-2017 take 3 tablets by mo [facility] twice daily VITAMIN C 1000 MG TABS Three tablets by mouth twice a day ASCORBIC ACID [id number] Stefania Little RN aspirin 81 mg delayed release oral tablet (20 sources) Nonsteroidal Anti-inflammatory Drug Start: 10-02-2017 Aspirin (Adult Lo w Dose Aspirin) 81 mg tablet,delayed release (DR/EC) Active 81 mg PO daily October 02, 2017 1:00am [facility] Complies with drug therapy Start: 05-07-2017 take 1 tablet by sage th once daily ASPIRIN EC 81 MG TBEC One tablet by mouth daily ASPIRIN [id number] Breonna Marrero Start: 04-29-2017 End: 04-30-2017 take 1 tablet by mouth once daily ASPIRIN EC 81 MG TBEC One tablet by mouth daily ASPIRIN [id number] Stefania Little RN calcium carbonate 600 mg / cholecalciferol 0.01 mg oral tablet (20 sources) Vitamin D Start: 10-02-2017 Calcium Carbon ate-Vit D3-Min 600 mg calcium- 400 unit tablet Active 1 {tbl} PO daily October 02, 2017 1:00am vitamin Complies with drug therapy [place] 2-Tbg-Xjd-Fish Oil (20 sources) Start: 02-22-2022 take 300-1000 mg by mouth once daily [place] 3-Ddk-Uim-Fish Oil (Fish Oil) 300-1,000 mg capsule Active 1 CAP PO DAILY February 22, 2022 11:34am Start: 02-22-2022 End: 03-12-2023 [place] 8-Yow-Ghp-Fish Oil (Fi sh Oil) 300-1,000 mg capsule Discontinued 1 NMA PO DAILY February 22, 2022 12:00am March 12, 2023 10:45am supplement Start: 02-22-2022 End: 03-12-2023 [place] 3-Ksk-Xok-Fish Oil (Fi sh Oil) 300-1,000 mg capsule Discontinued 1 NMA PO DAILY February 22, 2022 12:00am March 12, 2023 10:45am Start: 02-22-2022 End: 03-12-2023 take 300-1000 mg by mouth once daily [place] 6-Ftf-Mqw-Fish Oil (Fish Oil) 300-1,000 mg capsule Discontinued 1 CAP PO DAILY February 22, 2022 12:00am March 12, 2023 10:45am Start: 02-22-2022 take 300-1000 mg by mouth once daily [place] 5-Dwa-Zux-Fish Oil (Fish Oil) 300-1,000 mg capsule Active 1 CAP PO DAILY February 21, 2022 11:00pm Start: 02-22-2022 take 300-1000 mg by mouth once daily [place] 2-Ofr-Nbh-Fish Oil (Fish Oil) 300-1,000 mg capsule Active 1 CAP PO DAILY February 22, 2022 12:00am ferrous sulfate 325 mg oral tablet (14 sources) Start: 08-31-2024 take 1 tablet by mouth once daily Ferrous Sulfate 325 mg (65 mg iron) tablet Active 325 mg PO daily August 31, 2024 1:00am Complies with drug therapy Start: 03-17-2024 End: 08-17-2024 take 1 tablet by mouth once daily Ferrous Sulfate 325 mg (65 mg iron) tablet Discontinued 325 mg PO DAILY March 17, 2024 12:00am August 17, 2024 2:54pm Fluticasone Furoate-Vilanterol (20 sources) Corticosteroid, beta2-Adrenergic Agonist Start: 03-16-2025 Fluticasone Furoate-Vilanterol (Breo Ellipta) 200-25 mcg/dose blister with device Active 1 NMA INHALATION DAILY 3 March 16, 2025 3:33pm Complies with drug therapy Start: 03-16-2025 Fluticasone Fu roate-Vilanterol (Breo Ellipta) 200-25 mcg/dose blister with device Active 1 NMA INHALATION DAILY 3 March 16, 2025 3:33pm Start: 03-16-2025 Fluticasone Fu roate-Vilanterol (Breo Ellipta) 200-25 mcg/dose blister with device Active 1 NMA INHALATION DAILY March 16, 2025 3:33pm Start: 02-02-2025 End: 03-16-2025 Fluticasone Furoate-Vilanter ol (Breo Ellipta) 200-25 mcg/dose blister with device Discontinued 1 NMA INHALATION DAILY 3 February 02, 2025 2:29pm March 16, 2025 3:33pm Start: 02-02-2025 End: 03-16-2025 Fluticasone Furoate-Vilanter ol (Breo Ellipta) 200-25 mcg/dose blister with device Discontinued 1 NMA INHALATION DAILY February 02, 2025 2:29pm March 16, 2025 3:33pm Start: 01-22-2024 End: 02-02-2025 Fluticasone Furoate-Vilanter ol (Breo Ellipta) 200-25 mcg/dose blister with device Discontinued 1 NMA INHALATION DAILY 3 January 22, 2024 9:29am February 02, 2025 2:30pm Start: 01-22-2024 End: 02-02-2025 Fluticasone Furoate-Vilanter ol [...] with device Discontinued 1 NMA INHALATION DAILY 3 January 21, 2024 1:36pm January 22, 2024 [...] with device Discontinued 1 NMA INHALATION DAILY 3 June 26, 2023 10:21am January 21, 2024 [...] with device Discontinued 1 NMA INHALATION DAILY 3 May 17, 2022 7:14am June 26, 2023 [...] with device Discontinued 1 NMA INHALATION DAILY 3 June 30, 2021 9:45am May 17, 2022 [...] with device Discontinued 1 NMA INHALATION DAILY 12 03May 18, 2021 7:39am June 30, 2021 9:46am [...] 1 INH INHALATION DAILY May 18, 2021 7:39am June 30, 2021 9:46am Start: 03-31-2021 End: 05-18-2021 Fluticasone Furoate-Vilanter ol (Breo Ellipta) 200-25 mcg/dose blister with device Discontinued 1 NMA INHALATION DAILY 12 03March 31, 2021 11:32am May 18, 2021 7:39am [...] 23, 2021 12:00am March 31, 2021 11:34am linseed oil 1000 mg oral capsule (20 sources) Start: 03-12-2023 take 1 capsule by mouth once daily Flaxseed Oil 1,000 mg capsule Active 1000 mg PO DAILY March 12, 2023 12:00am administer with a meal Complies with drug therapy Start: 02-06-2017 End: 02-22-2022 take 1 capsule by mouth once daily Flaxseed Oil 1,000 MG capsule Discontinued 1000 mg PO DAILY February 06, 2017 12:00am February 22, 2022 11:33am SUPPLEMENT Multivitamin preparation (20 sources) Start: 02-02-2019 take [...] 12:00am October 02, 2017 8:15pm Multivitamin tablet (7 sources) Start: 02-02-2019 Multivitamin t ablet Active 1 {tbl} PO DAILY February 02, 2019 12:00am vitamin Complies with drug therapy Start: 02-02-2019 Multivitamin t ablet Active 1 {tbl} PO DAILY February 02, 2019 12:00am vitamin Start: 02-02-2019 Multivitamin t ablet Active 1 {tbl} PO DAILY February 02, 2019 12:00am traZODone hydrochloride 100 mg oral tablet (20 sources) Serotonin Reuptake Inhibitor Start: 05-03-2023 End: 01-20-2024 Trazodone Discontinued 50 MG PO AT BEDTIME 60 May 13, 2023 12:26pm July 29, 2023 10:51am Take one half to one tablet one hour before sleep. Start: 09-13-2022 End: 05-07-2025 Trazodone 100 mg tablet Acti ve 50 mg PO AT BEDTIME as needed for insomnia 90 1 May 07, 2025 9:55am Take one half to one tablet one hour before sleep. Complies with drug therapy vitamin b12 1 mg oral tablet (20 sources) Vitamin B12 Start: 02-06-2017 take 1 tablet by mouth once daily Cyanocobalamin (Vitamin B-12) 1,000 MCG tablet Active 1000 ug PO DAILY February 06, 2017 12:00am SUPPLEMENT Complies with drug therapy Completed/Discontinued Medications Medication Drug Class(es) Dates Sig [...] mg tablet Discontinued 5 mg PO DAILY 90 3 September 02, 2023 1:00am January 30, 2024 3:29pm amoxicillin 500 mg oral tablet (5 sources) Penicillin-class Antibacterial Start: 05-21-2017 take 4 tablets by mouth every hour AMOXICILLIN 500 MG TABS 4 tablets by mouth 1 hr prior to procedure AMOXICILLIN [id number] Wil Rivas MD amoxicillin 500 mg / clavulanate 125 mg oral tablet (10 sources) Penicillin-class Antibacterial Start: 04-30-2017 End: 05-07-2017 take 1 tablet by mouth twice daily AUGMENTIN 500-125 MG TABS One tablet by mouth twice daily AMOXICILLIN-POT CLAVULANATE [id number] Sidra Madrid RN atorvastatin 40 mg oral tablet (20 sources) HMG-CoA Reductase Inhibitor Start: 05-02-2017 End: 10-02-2017 take 2 tablets by mouth at bedtime Atorvastatin 40 MG tablet Discontinued 80 mg PO AT BEDTIME May 02, 2017 4:06pm October 02, 2017 8:08pm CHOLESTEROL LOWERING Start: 05-02-2017 End: 10-02-2017 take 80 mg by mouth at bedtime Atorvastatin Discontinu ed 80 MG PO AT BEDTIME May 02, 2017 4:06pm October 02, 2017 8:08pm Start: 04-29-2017 End: 05-07-2017 take 1 tablet by mouth once daily ATORVASTATIN CALCIUM 80 MG TABS One tablet by mouth daily ATORVASTATIN CALCIUM [id number] Breonna Marrero Start: 04-16-2017 End: 05-02-2017 take 1 tablet by mouth at bedtime Atorvastatin 40 MG tablet Discontinued 40 mg PO AT BEDTIME 30 0 April 16, 2017 12:00am May 02, 2017 4:06pm azithromycin 500 mg oral tablet (20 sources) Macrolide Antimicrobial Start: 04-29-2025 End: 05-04-2025 take 1 tablet by mouth once daily Azithromycin 500 mg tablet Discontinued 500 mg PO daily 5 5 0 April 29, 2025 12:00am May 03, 2025 12:00am May 04, 2025 12:08am Start: 10-07-2020 End: 10-08-2020 take 1 tablet by mouth once Azithromycin 500 mg tablet Discontinued 500 mg PO ONCE 1 1 0 October 07, 2020 1:00am October 07, 2020 1:00am October 08, 2020 1:03am Day 1 Start: 10-07-2020 End: 10-16-2020 take 1 tablet by mouth once daily Azithromycin 250 mg tablet Discontinued 250 mg PO DAILY 9 9 0 October 07, 2020 1:00am October 15, 2020 1:00am October 16, 2020 1:03am Day 2-10 Start: 04-29-2020 End: 05-04-2020 take 1 tablet by mouth once daily Azithromycin (Zithromax Z-Codey) 250 mg tablet Discontinued 250 mg PO DAILY 5 5 0 April 29, 2020 12:00am May 03, 2020 12:00am May 04, 2020 12:02am benzonatate 100 mg oral capsule (20 sources) Non-narcotic Antitussive Start: 05-07-2017 End: 08-26-2017 BENZONATATE 100 MG CAPS as needed BENZONATATE [id number] Breonna Marrero Start: 05-04-2017 End: 10-02-2017 take 2 capsules by mouth four times daily as needed for cough Benzonatate 100 MG capsule Discontinued 200 mg PO 4 TIMES DAILY NEEDED as needed for Cough 30 May 04, 2017 12:00am October 02, 2017 8:16pm Start: 05-04-2017 End: 10-02-2017 take 200 mg by mouth four times daily as needed Benzonatate Discontinued 200 MG PO 4 TIMES DAILY NEEDED May 04, 2017 12:00am October 02, 2017 8:16pm calcium carbonate (20 sources) Start: 04-29-2017 take 1 tablet by mouth once daily CALCIUM CARBONATE TABS One tablet by mouth daily CALCIUM CARBONATE TABS [id number] Evelin Kulkarni RN Start: 04-29-2017 End: 05-07-2017 take 1 tablet by mouth once daily CALCIUM CARBONATE TABS One tablet by mouth daily CALCIUM CARBONATE TABS [id number] Breonna Marrero Start: 02-06-2017 End: 10-02-2017 take 1 tablet by mouth once daily Calcium Carbonate 300 MG tablet,chewable Discontinued 300 mg PO DAILY February 06, 2017 12:00am October 02, 2017 8:14pm SUPPLEMENT calcium carbonate / vitamin D (5 sources) [...] 10, 2021 12:00am March 16, 2022 10:10am vitamin Start: 04-29-2017 End: 05-07-2017 take 1 tablet by mouth once daily VITAMIN D3 400 UNIT TABS One tablet by mouth daily CHOLECALCIFEROL [id number] Evelin Kulkarni RN ciprofloxacin 500 mg oral tablet (20 sources) Quinolone Antimicrobial Start: 07-26-2021 End: 07-31-2021 take 1 tablet by mouth twice daily Ciprofloxacin Hcl 500 mg tablet Discontinued 500 mg PO TWICE A DAY 10 5 0 July 26, 2021 12:00am July 30, 2021 12:00am July 31, 2021 12:01am clopidogrel 75 mg oral tablet (20 sources) [id number] Platelet Inhibitor Start: 04-30-2017 End: 10-02-2017 take 1 tablet by mouth once daily Clopidogrel 75 MG tablet Discontinued 75 mg PO DAILY May 02, 2017 12:00am October 02, 2017 8:16pm BLOOD THINNER codeine phosphate 2 mg/ml / guaiFENesin 20 mg/ml oral solution (2 sources) Opioid Agonist Start: 04-29-2025 End: 06-16-2025 take 1 mL by mouth every four to six hours as needed for cough Codeine-Guaifenesi n 10-100 mg/5 mL liquid Discontinued 5 mL PO EVERY 4-6 HOURS as needed for cough 120 0 April 29, 2025 12:00am June 16, 2025 3:23pm docusate sodium 100 mg oral capsule (20 sources) Start: 05-02-2017 End: 10-02-2017 take 1 capsule by mouth once daily Docusate Sodium 100 MG capsule Discontinued 100 mg PO DAILY May 02, 2017 12:00am October 02, 2017 8:15pm CONSTIPATION Start: 04-30-2017 End: 08-26-2017 take 1 tablet by mouth once daily DOCUSATE SODIUM 100 MG TABS One tablet by mouth daily DOCUSATE SODIUM [id number] Wil Rivas MD esomeprazole 20 mg delayed release oral capsule (12 sources) Proton Pump Inhibitor Start: 07-26-2022 End: 09-13-2022 take 1 capsule by mouth once daily Esomeprazole Magnesium 20 mg capsule,delayed release(DR/EC) Discontinued 20 mg PO DAILY 29 10July 26, 2022 12:00am September 13, 2022 9:40am ferrous gluconate 324 mg oral tablet (20 sources) Start: 04-16-2017 End: 10-03-2017 take 1 tablet by mouth twice daily at mealtime Ferrous Gluconate 325 MG tablet Discontinued 325 mg PO TWICE DAILY WITH MEALS May 02, 2017 6:17pm October 03, 2017 3:52pm IRON SUPPLEMENT flaxseed extract (5 sources) Non-Standardiz ed Food Allergenic Extract, Non-Standardiz ed Plant Allergenic Extract Start: 04-29-2017 take 1 tablet by mouth once daily FLAX SEED OIL CAPS One tablet by mouth daily FLAXSEED (LINSEED) CAPS [id number] Evelin Kulkarni RN Fluad Quad (65yr up)(PF) 60 mcg (15 [...] CONGESTION 100 MG/5ML SYRP As needed GUAIFENESIN [id number] Wil Rivas MD hydroCHLOROthiazide 12.5 mg oral [...] mg tablet Discontinued 12.5 mg PO daily 90 October 07, 2017 3:00pm April 29, 2020 2:00pm Start: 08-20-2017 take 1 tablet by sage th once daily HYDROCHLOROTHIAZIDE 12.5 MG TABS One tablet by mouth daily HYDROCHLOROTHIAZIDE [id number] Wil Rivas MD hydroCHLOROthiazide 12.5 mg / lisinopril 20 mg oral tablet (20 sources) Thiazide Diuretic, Angiotensin Converting Enzyme Inhibitor Start: 05-02-2017 End: 10-02-2017 Lisinopril-Hydrochlorothiazi de Discontinued 1 EACH PO DAILY May 02, 2017 12:00am October 02, 2017 8:16pm Start: 04-30-2017 End: 10-02-2017 Lisinopril-Hydrochlorothiazi de 1 EACH tablet Discontinued 1 NMA PO DAILY May 02, 2017 12:00am October 02, 2017 8:16pm BLOOD PRESSURE Start: 04-29-2017 End: 04-30-2017 take 1 tablet by mouth once daily LISINOPRIL-HYDROCHLOROTHIAZIDE 10-12.5 M G TABS One tablet by mouth daily LISINOPRIL-HYDROCHLOROTHIAZIDE [id number] Evelin Kulkarni RN hydroCHLOROthiazide 12.5 mg / losartan potassium 50 mg oral tablet (20 sources) Thiazide Diuretic, Angiotensin 2 Receptor Sherif Start: 07-26-2022 End: 03-23-2025 Losartan-Hydrochlorothiazide 50-12.5 mg tablet Discontinued 1 {tbl} PO TWICE A DAY 180 August 10, 2024 3:25pm March 23, 2025 2:42pm Start: 07-26-2022 End: [...] Losartan-Hydrochlorothiazide Discontinue d 1 TABLET PO DAILY 90 July 23, 2022 12:00am July 26, 2022 10:57am Start: 10-07-2020 End: 07-23-2022 Losartan-Hydrochlorothiazide 50-12.5 mg tablet Discontinued 1 {tbl} PO TWICE A DAY 180 July 12, 2022 9:31am July 23, 2022 10:12am Start: 10-07-2020 End: 07-23-2022 take 1 tablet by mouth twice daily Losartan-Hydrochlorothiazide Discontinue d 1 TABLET PO TWICE A DAY 180 July 12, 2022 9:31July 23, 2022 10:12am Start: 04-29-2020 End: 10-07-2020 Losartan-Hydrochlorothiazide 50-12.5 mg tablet Discontinued 1 {tbl} PO DAILY 90 April 29, 2020 12:00am October 07, 2020 11:02am Start: 04-29-2020 End: 10-07-2020 take 1 tablet by mouth once daily Losartan-Hydrochlorothiazide Discontinue d 1 TABLET PO DAILY April 29, 2020 12:00am October 07, 2020 11:02am levoFLOXacin 750 mg oral tablet (20 sources) Quinolone Antimicrobial Start: 05-04-2017 End: 10-02-2017 take 1 tablet by mouth once daily Levofloxacin 750 MG tablet Discontinued 750 mg PO DAILY 5 0 May 04, 2017 12:00am October 02, 2017 8:16pm start 05/05/17 lidocaine 0.05 mg/mg medicated patch (10 sources) Antiarrhythmic, Amide Local Anesthetic Start: 04-29-2017 End: 04-30-2017 LIDODERM 5 % PTCH remove & reapply daily LIDOCAINE [id number] Stefania Little RN losartan potassium 50 mg oral tablet (20 sources) Angiotensin 2 Receptor Sherif Start: 10-02-2017 End: 04-29-2020 take 1 tablet by mouth once daily Losartan 50 mg tablet Discontinued 50 mg PO daily 90 December 29, 2019 5:17pm April 29, 2020 2:00pm Start: 08-05-2017 take 1 tablet by sage th once daily LOSARTAN POTASSIUM 25 MG TABS One tablet by mouth daily LOSARTAN POTASSIUM [id number] Wil Rivas MD Start: 08-05-2017 take 1 tablet by sage th once daily LOSARTAN POTASSIUM 50 MG TABS One tablet by mouth daily LOSARTAN POTASSIUM [id number] Stefania Barone PA-C magnesium oxide 400 mg oral tablet (20 sources) Start: 10-02-2017 End: 10-03-2017 take 1 tablet by mouth twice daily Magnesium Oxide 400 mg tablet Discontinued 400 mg PO TWICE A DAY October 02, 2017 1:00am October 03, 2017 3:52pm Start: 04-30-2017 take 1 tablet by sage th twice daily MAGNESIUM OXIDE 400 MG TABS One tablet by mouth twice daily MAGNESIUM OXIDE [id number] Stefania Little RN melatonin 10 mg oral capsule (20 sources) Start: 02-02-2019 End: 03-12-2023 take 1 [...] hr Discontinued 50 mg PO AT BEDTIME 90 3 January 12, 2025 2:02pm February 23, 2025 3:34pm BLOOD PRESSURE Start: 04-30-2017 End: 11-01-2023 take 1 tablet by mouth once daily Metoprolol Succinate 50 mg tablet extended release 24 hr Discontinued 50 mg PO DAILY 90 October 12, 2022 10:36am May 03, 2023 3:40pm BLOOD PRESSURE MULTIPLE VITAMINS-MINERALS (10 sources) Start: 04-30-2017 End: 05-07-2017 take 1 tablet by mouth once daily MULTIVITAMIN ADULT TABS One tablet by mouth daily MULTIPLE VITAMINS-MINERALS [id number] Breonna Marrero Start: 04-30-2017 take 1 tablet by sage th once daily MULTIVITAMIN ADULT TABS One tablet by mouth daily MULTIPLE VITAMINS-MINERALS [id number] Stefania Little RN Multivitamin 1 EACH tablet (7 sources) Start: 05-02-2017 End: 10-02-2017 Multivitamin 1 EACH tablet Discontinued 1 NMA PO DAILY May 02, 2017 12:00am October 02, 2017 8:15pm SUPPLEMENT Start: 05-02-2017 End: 10-02-2017 Multivitamin 1 EACH tablet D iscontinued 1 NMA PO DAILY May 02, 2017 12:00am October 02, 2017 8:15pm nitrofurantoin, macrocrystals 25 mg / nitrofurantoin, monohydrate 75 mg oral capsule (7 sources) Nitrofuran Antibacterial Start: 12-01-2024 End: 12-06-2024 take 1 capsule by mouth every twelve hours at mealtime Nitrofurantoin Monohyd/M-Cryst (Macrobid) 100 mg capsule Discontinued 100 mg PO Q12H 10 5 0 December 01, 2024 1:00am December 05, 2024 1:00am December 06, 2024 1:14am must administer with a meal/food omeprazole 40 mg delayed release oral capsule (20 sources) Proton Pump Inhibitor Start: 02-10-2021 End: [...] 6 HOURS NEEDED as needed for Pain 30 0 May 04, 2017 12:00am October 02, 2017 8:16pm pravastatin sodium 40 mg oral tablet (20 sources) HMG-CoA Reductase Inhibitor Start: 10-02-2017 End: 11-05-2024 Pravastatin 40 mg tablet Discontinued 0 .ROUTE .COMPLEX 90 3 November 18, 2023 11:35am November 05, 2024 5:05pm TAKE 1 TABLET every evening at bedtime. Start: 08-26-2017 take 1 tablet by sage th at bedtime PRAVASTATIN SODIUM 40 MG TABS One tablet by mouth at bedtime. PRAVASTATIN SODIUM [id number] Wil Rivas MD predniSONE 10 mg oral tablet (2 sources) Start: 04-29-2025 End: 06-16-2025 Prednisone 10 mg tablet Discontinued 10 mg PO As Directed 21 April 29, 2025 12:00am June 16, 2025 3:24pm Take 4 tabs (40 mg) daily for 3 days, then 2 tabs (20 mg) daily for 3 days then 1 tab (10 mg daily) for 3 days then stop. temazepam 7.5 mg oral capsule (20 sources) Benzodiazepine Start: 04-26-2021 End: 03-12-2023 take 1 capsule by mouth at bedtime as needed for sleep Temazepam 7.5 mg capsule Discontinued 7.5 mg PO AT BEDTIME as needed for sleep 30 0 August 29, 2022 8:52am March 12, 2023 10:45am Start: 03-15-2021 End: 04-26-2021 take 1 capsule by mouth at bedtime as needed for sleep Temazepam 15 mg capsule Discontinued 15 mg PO AT BEDTIME as needed for sleep 30 March 31, 2021 12:00am April 26, 2021 11:13am ticagrelor 90 mg oral tablet (20 sources) Start: 03-03-2022 End: 09-02-2023 take 1 tablet by mouth twice daily Ticagrelor (Brilinta) 90 mg tablet Discontinued 90 mg PO TWICE A DAY 180 3 May 24, 2023 4:45pm September 02, 2023 5:29pm traMADol hydrochloride 50 mg oral tablet (20 sources) Opioid Agonist Start: 04-29-2017 End: 08-26-2017 ULTRAM 50 MG TABS 1 tablet every 4 hours. TRAMADOL HCL [id number] Wil Rivas MD Start: 04-12-2017 End: 10-02-2017 take 1 tablet by mouth every six hours as needed for pain Tramadol 50 MG tablet Discontinued 50 mg PO EVERY 6 HOURS NEEDED as needed for Pain April 12, 2017 12:00am October 02, 2017 8:16pm triamcinolone acetonide 1 mg/ml topical cream (20 sources) Corticosteroid Start: 05-02-2017 End: 10-02-2017 Triamcinolone Acetonide 1 APPLIC cream Discontinued 1 NMA TP DAILY as needed for Itching May 02, 2017 12:00am October 02, 2017 8:16pm Start: 04-30-2017 End: 05-07-2017 TRIAMCINOLONE ACETONIDE 0.1 % OINT Apply as directed TRIAMCINOLONE ACETONIDE [id number] Stefania Little RN B COMPLEX VITAMINS (10 sources) Start: 04-30-2017 End: 05-07-2017 take 1 tablet by mouth once daily VITAMIN B COMPLEX TABS One tablet by mouth daily B COMPLEX VITAMINS [id number] Breonna Marrero Start: 04-30-2017 take 1 tablet by sage th once daily VITAMIN B COMPLEX TABS One tablet by mouth daily B COMPLEX VITAMINS [id number] Stefania Little RN Vitamin B Complex (B Complex 1) tablet (20 sources) Start: 02-02-2019 End: 02-10-2021 take 1 [...] 11:09am zinc sulfate 220 mg oral capsule (20 sources) Start: 02-10-2021 End: 02-19-2022 take 1 [...] (20 sources) Asthma; Translations: [Unspecified asthma, uncomplicated] Onset: 04-29-2025 Chronic Comment on above: Breo Cardiac dysrhythmias (11 sources) Palpitations; Translations: [Palpitations] 03-12-2023 Episodic Coronary atherosclerosis and other heart disease (20 sources) Coronary atherosclerosis; Translations: [Atherosclerotic heart disease of [place] coronary artery with unspecified angina pectoris] Onset: 04-29-2025 Chronic Comment on above: [id number] LAD at D2 bifurcation w/ 3.5 x 18 mm [facility] Stent and POBA-D2 03/02/22; Coronary atherosclerosis and other heart disease (20 sources) Presence of coronary angioplasty implant and graft; Translations: [Percutaneous transluminal coronary angioplasty status] Onset: 03-02-2022 Episodic Disorders of lipid metabolism (20 sources) Hyperlipidemia; Translations: [Hyperlipidemia, unspecified] Onset: 04-29-2017 04-29-2017 Chronic E Codes: Fall (11 sources) Fall; Translations: [Unspecified fall, initial encounter] 09-18-2022 Episodic Esophageal disorders (14 sources) Gastroesophageal reflux disease; Translations: [Gastro-esophageal reflux disease without esophagitis] Chronic Essential hypertension (20 sources) Hypertensive disorder; Translations: [Essential hypertension] 04-29-2017 Chronic Fracture of lower limb (20 sources) Closed fracture of fifth metatarsal bone; Translations: [Nondisplaced fracture of fifth metatarsal bone, right foot, initial encounter for closed fracture] 09-17-2022 Episodic Heart valve disorders (20 sources) Nonrheumatic aortic (valve) stenosis with insufficiency; Translations: [Aortic stenosis, non-rheumatic ] Onset: 04-08-2017 04-29-2017 Chronic Comment on above: # 21 Trifecta Valve @ [facility] [place] Immunizations and screening for infectious disease (1 source) Encounter for immunization; Translations: [Encounter for immunization] Onset: 06-16-2025 Episodic Malaise and fatigue (12 sources) Fatigue; Translations: [Other fatigue] Episodic Nonspecific chest pain (20 sources) Chest pain; Translations: [Chest pain, unspecified] 07-05-2021 Episodic Osteoarthritis (20 sources) Osteoarthritis of right knee joint; Translations: [Unilateral primary osteoarthritis, right knee] Onset: 08-17-2024 2 Chronic Other and unspecified benign neoplasm (10 sources) History of polyp of colon; Translations: [Personal history of colonic polyps] 04-04-2023 Episodic Other and unspecified benign neoplasm (1 source) Personal history of colonic polyps; Translations: [Personal history of colonic polyps] 04-04-2023 Episodic Other connective tissue disease (9 sources) Swelling of lower limb; Translations: [Other specified soft tissue disorders] 01-30-2024 Episodic Other inflammatory condition of skin (9 sources) Pruritus, unspecified; Translations: [Pruritus] 08-17-2024 Episodic Other lower respiratory disease (20 sources) Dyspnea on exertion; Translations: [Dyspnea, unspecified] 02-20-2022 Episodic Other lower respiratory disease (20 sources) Chronic cough; Translations: [Chronic cough] 02-23-2021 Episodic Other lower respiratory disease (20 sources) Productive cough ; Translations: [Productive cough] 03-14-2021 Episodic Other lower respiratory disease (7 sources) Dyspnea, unspecified; Translations: [Other respiratory abnormalities] Episodic Other lower respiratory disease (15 sources) Other forms of dyspnea; Translations: [Other respiratory abnormalities] Episodic Other non-traumatic joint disorders (11 sources) Pain in right knee; Translations: [Right knee pain] 02-06-2024 Episodic Other non-traumatic joint disorders (9 sources) Hip pain; Translations: [Pain in left hip] 12-30-2024 Episodic Other nutritional; endocrine; and metabolic disorders (9 sources) Obesity; Translations: [Obesity, unspecified] Chronic Other nutritional; endocrine; and metabolic disorders (9 sources) Overweight; Translations: [Overweight] 03-17-2025 Episodic Other [...] [Unspecified sleep apnea] Chronic Residual codes; unclassified (20 sources) Obstructive sleep apnea syndrome; Translations: [Obstructive sleep apnea (adult) (pediatric)] 09-06-2022 Chronic Residual codes; unclassified (15 sources) Obstructive sleep apnea (adult) (pediatric); Translations: [Obstructive sleep apnea (adult)(pediatric)] Onset: 06-16-2025 Chronic Residual codes; unclassified (10 sources) Insomnia; Translations: [Insomnia, unspecified] 09-13-2022 Episodic Unclassified (10 sources) Long-term drug therapy; Translations: [Other group home (current) drug therapy] Onset: 04-29-2017 05-01-2017 Unclassified (5 sources) Replacement of aortic valve ; Translations: [Presence of prosthetic heart valve] Onset: 04-29-2017 04-29-2017 Unclassified (4 sources) Primary osteoarthritis of right knee; Translations: [M17.11 - Unilateral primary osteoarthritis, right knee] Unclassified (2 sources) R53.83 - Other fatigue,E66.9 - Obesity, unspecified Unclassified (10 sources) Pain of left hip; Translations: [M25.552 - Pain in left hip] Urinary tract infections (20 sources) Urinary tract infectious disease; Translations: [Urinary tract infection, site not specified] 05-03-2023 Episodic Past or Other Problems Problem Classification Problem Date Documented Da te Episodic/Chronic Fever of unknown origin (5 sources) Fever; Translations: [Fever, unspecified] Onset: 04-29-2017 04-29-2017 Episodic Genitourinary symptoms and ill-defined conditions (1 source) Dysuria; Translations: [Dysuria] Onset: 12-15-2024 Episodic Other non-traumatic joint disorders (1 source) Pain in left hip; Translations: [Pain in left hip] Onset: 01-25-2025 Episodic Pleurisy; pneumothorax; pulmonary collapse (5 sources) Bilateral pleural effusion; Translations: [Pleural effusion, not elsewhere classified] Onset: 04-29-2017 04-29-2017 Episodic Unclassified (5 sources) Body mass index (BMI) 25.0-25.9, adult; Translations: [Body mass index (BMI) 25.0-25.9, adult] Onset: 05-01-2017 05-01-2017 Episodic Results Test Name Value Interpretation Reference Range Facility Pulmonary Visit Reporton Pulmonary Visit Report [facility] [address] [place] [address] OFFICE VISIT Date of Service: 06/16/25 MR#: [id number] Acct: [id number] Name: KARYN MULLER Rep #: [id number] : 1945 Provider: ROE Suh Age/Sex: 79/F Location: [email or web address] Status: Signed Assessment and Plan Assessment and Plan (1) JOSE (obstructive sleep apnea): Status: Chronic Plan: Deteriorated, elevated residual AHI. Increasing AutoPap range to 5 to 15 cm water, did not improve control. She wears the AutoPap while reading, which is likely falsely reducing the AHI, which is already concerning. Sending her for a titration study. Follow up in 3 months to evaluate her response to therapy change. Contact the office with any difficulty acclimating to new pressure. She is using and benefiting from PAP therapy. (2) Asthma: Status: Chronic Qualifiers: Asthma complication type: uncomplicated Asthma persistence: persistent Asthma severity: moderate Qualified Code(s): J45.40 - Moderate persistent asthma, uncomplicated Comment: Breo Plan: Stable, no signs of exacerbation of asthma today. No change in maintenance medications. No additional testing at this time. Contact the office with any signs of new or worsening symptoms. Provided with annual flu vaccine. Follow-up in 3 months. (3) Overweight: Status: Chronic Plan: Continue to encourage healthy weight loss by diet control and light exercise. Orders: Orders Influenza Immunization 06/16/25 Z23 - Encounter for immunization Polysomnography with PAP 06/21/25 G47.33 - Obstructive sleep apnea (adult) (pediatric) Plan Details Additional Comments: This note was generated with [employer] dictation software. It may contain incorrect words, spelling, and punctuation that were not noted in checking the note before signing. Follow Up: 3 Months HPI 3 M FU Chief Complaint: sleep apnea HPI Comments Details: This patient presents to the office today to follow-up on her obstructive sleep apnea and asthma. She is ambulatory and on room air. She has not been [...] occasional shortness of breath on exertion. She also has an occasional cough productive of yellow sputum. She denies any wheezing, chest tightness, chest pain or palpitations. She has not had any fever, chills or body aches. She is having occasional dry mouth. She is not experiencing nocturia. She wakes feeling rested with the use of her PAP device. She does not nap. She admits that she wears her pap device while reading, therefore, she is not sleep for the full 10 hours that the machine is recording use. Compliance report for the past 30 days shows 100% compliance with an average use of 9 hours and 58 minutes per night. Current setting is AutoPap 5-15 centimeters of water pressure typically being utilized at 9.1 to 11.8 cm water. Residual AHI of 9.1 events per hour. It is also noted that central events are occurring at 9.2 events per hour. Leaks continue to be problematic. Intake Vital Signs 03/16/25 08:31 06/16/25 08:47 Height 5 ft 3 in 5 ft 3 in Weight: 170 lb BMI 30.1 BP 120/70 Blood Pressure Location Rt brachial Position Sitting Respiration 18 Pulse 70 Pulse Source Monitor Temp 97.5 F L Temperature Source Temporal Artery Pulse Oximetry (%) 93 Oxygen Delivery Method room air Intake Visit Reasons: 3 M FU Chief Complaint: Cough, Congestion [employer] Professor Required: No HUSEYIN Vendor: Eben Accompanied by: Self Is patient in pain?: No Allergies meloxicam Adverse Reaction (Verified 06/16/25 15:22) Nausea methotrexate Adverse Reaction (Verified 06/16/25 15:22) Nausea NSAIDS (Non-Steroidal Anti-Inflamma Adverse Reaction (Verified 06/16/25 15:22) Nausea Sulfa (Sulfonamide Antibiotics) Adverse Reaction (Verified 06/16/25 15:22) Nausea Medications ???Medication ???Instructions ???Recorded ???Confirmed ???Type cyanocobalamin (vitamin B-12) 1,000 mcg PO DAILY SUPPLEMENT 01/2806/16/25 History 1,000 mcg tablet aspirin 81 mg tablet,delayed 81 mg PO QDAY heart health 8 06/16/25 History release (Adult Low Dose Aspirin) calcium 600 mg (as carbonate)-vit 1 tab PO QDAY vitamin 10/02/17 History D3 10 mcg (400 unit)-minerals tablet multivitamin 1 tab PO DAILY vitamin 02/02/19 History acetaminophen 650 mg 1,300 mg PO Q12H ar (more content not included)... Normal [facility] MR/BMS.IMBon 04-29-2025 MR/BMS.IMB [facility] [address] [place] [address] OFFICE VISIT Date of Service: 04/29/25 MR#: [id number] Acct: [id number] Name: KARYN MULLER Rep #: [id number] : 1945 Provider: Dr. Saqib joya MD Age/Sex: 79/F Location: [facility] Status: Signed Intake Vital Signs 03/23/25 14:28 04/29/25 11:43 Height 5 ft 3 in 5 ft 3 in Weight: 168 lb 168 lb 4 oz BMI 29.7 29.7 BP 147/78 H 147/63 H Blood Pressure Location Lt brachial Lt brachial Position Sitting Sitting Respiration 18 16 Pulse 58 L 77 Pulse Source Monitor Monitor Temp 99.3 F H Temp Source Temporal Pulse Oximetry (%) 94 Oxygen Delivery Method room air Intake Visit Reasons: Cough, Congestion Chief Complaint: Cough, Congestion [employer] Professor Required: No Accompanied by: Self Is patient in pain?: Yes (Bilateral ribs ) Pain scale (1-10): 8 Allergies meloxicam Adverse Reaction (Verified 04/29/25 11:38) Nausea methotrexate Adverse Reaction (Verified 04/29/25 11:38) Nausea NSAIDS (Non-Steroidal Anti-Inflamma Adverse Reaction (Verified 04/29/25 11:38) Nausea Sulfa (Sulfonamide Antibiotics) Adverse Reaction (Verified 04/29/25 11:38) Nausea Medications ???Medication ???Instructions ???Recorded ???Confirmed ???Type cyanocobalamin (vitamin B-12) 1,000 mcg PO DAILY SUPPLEMENT 01/2804/29/25 History 1,000 mcg tablet aspirin 81 mg tablet,delayed 81 mg PO QDAY heart health 8 04/29/25 History release (Adult Low Dose Aspirin) calcium 600 mg (as carbonate)-vit 1 tab PO QDAY vitamin 10/02/17 History D3 10 mcg (400 unit)-minerals tablet multivitamin 1 tab PO DAILY vitamin 02/02/19 History acetaminophen 650 mg 1,300 mg PO Q12H arthritis 2 04/29/25 History tablet,extended release albuterol sulfate 90 mcg/actuation 2 puff inhalation Q4H PRN 04/29/25 Rx aerosol inhaler shortness of breath or wheezing #8.5 grams flaxseed oil 1,000 mg capsule 1,000 mg PO DAILY 03/12/23 5 History trazodone 100 mg tablet 50 mg (1/2 x 100 mg) PO QHS PRN 04/29/25 Rx insomnia #90 tabs ferrous sulfate 325 mg (65 mg 325 mg PO QDAY 08/31/24 04/29/25 H istory iron) tablet pravastatin 40 mg tablet See Rx Instructions .Route 5 04/29/25 Rx .COMPLEX #90 tabs ascorbic acid (vitamin C) 1,000 mg 1 g PO QDAY vitamin 12/30/24 History tablet metoprolol succinate 50 mg 50 mg PO QHS BLOOD PRESSURE #90 04/29/25 Rx tablet,extended release 24 hr tabs fluticasone furoate 200 1 inh inhalation DAILY #3 ea 03/1604/29/25 Rx mcg-vilanterol 25 mcg/dose inhalation powder (Breo Ellipta) losartan 50 mg-hydrochlorothiazide 1 tab PO BID #180 tabs 03/23/25 04/29/25 Rx 12.5 mg tablet azithromycin 500 mg tablet 500 mg PO QDAY 5 days #5 tabs 04/0104/29/25 Rx codeine 10 mg-guaifenesin 100 mg/5 5 ml PO Q4-6H PRN cough #120 mL 04/29/25 04/29/25 Rx mL oral liquid prednisone 10 mg tablet 10 mg PO DIRECTED #21 tabs 04/0104/29/25 Rx Have you fallen in the past year?: No PFSH Medical History (Updated 04/29/25 @ 12:[address] Saqib Juárez MD) Asthmatic bronchitis Left hip pain Pruritus Preop exam for internal medicine Wears hearing aid Wears glasses Alcohol use Low iron Restless legs Heartburn CPAP (continuous positive airway pressure) dependence Former smoker Shortness of breath on exertion Cardiology follow-up encounter History of stress test History of echocardiogram Sleep apnea Bereavement due to life event Bereavement counseling Generalized OA Diverticulitis Atherosclerotic heart disease [place] coronary artery w/angina pectoris Nonrheumatic aortic (valve) stenosis Essential (primary) hypertension COVID-19 (08/31/20) Psoriatic arthritis Hyperlipidemia Surgical History Hx of total knee replacement ( 10/13/24) History of cardiac catheterization History of colonoscopy [...] of servings: 2 HPI HPI Chief Complaint: Cough, Congesti (more content not included)... Normal [facility] Echocardiogram study reportO rdered By: Yong Mora on 03-30-2025 Study report [facility] [address] [place] [address] Echo Complete 03/26/25 1110 MR#: [id number] Acct: [id number] Name: KARYN MULLER Rep #:[id number] : 1945 79 From: Yong Duncan Attending Dr: Dr. Yong Mora MD S tatus: REG CLI Ordering Dr: Yong Mora MD Date: Location: [facility] Sex: F C Admitted: Reason For Study Reason For Study: PROSTHETIC HEART VALVE Procedure This was a 2D Doppler, Color Flow transthoracic echocardiogram. Exam performed in department. Left Ventricle Normal LV size. Left ventricular systolic function is normal. The left ventricular ejection fraction is 60 %. No regional wall motion abnormalities noted. Right Ventricle Normal RV size. Normal systolic function. Atria Normal left atrium. Normal right atrium. Mitral Valve Normal mitral valve. Mild (1+) eccentric mitral valve insufficiency. Tricuspid Valve Normal tricuspid valve. Mild (1+) tricuspid valve insufficiency. Pulmonary artery systolic pressure is 36 mmHg. Aortic Valve Peak aortic valve gradient 29 mmHg. Mean aortic valve gradient 17 mmHg. Mild (1+) aortic valve insufficiency. Bioprosthetic aortic valve. Pulmonic Valve Normal pulmonic valve. Great Vessels Normal aortic root. The pulmonary artery is normal size. Inferior vena cava collapse with respiration. Pericardium/Pleural No pericardial effusion. MMode/2D Measurements & Calculations LVIDd: 4.3 cm IVSd: 0.93 cm LVOT diam: 1.9 cm LVIDs: 2.6 cm LVPWd: 0.94 cm LVOT area: 2.9 cm2 RVDd: 3.5 cm FS: 38.2 % Ao root diam: 2.6 cm LAV(MOD-bp): 48.2 ml LVAd ap4: 26.1 cm2 LAV(MOD-bp) Indexed: 26.9 ml/m2 LVLd ap4: 7.9 cm LAV(MOD-sp2): 48.9 ml EDV(MOD-sp4): 69.5 ml LAV(MOD-sp4): 43.1 ml EDV(sp4-el): 73.7 ml LVAs ap4: 13.3 cm2 LVLs ap4: 6.4 cm ESV(MOD-sp4): 23.8 ml ESV(sp4-el): 23.5 ml EF(MOD-sp4): 65.7 % EF(sp4-el): 68.2 % SV(MOD-sp4): 45.7 ml SV(sp4-el): 50.3 ml LA A4 area: 17.8 cm2 SI(MOD-sp4): 25.5 ml/m2 LA dimension(2D): 3.9 cm RA A4 area: 16.8 cm2 TAPSE: 1.9 cm Time Measurements MV dec time: 0.35 sec Doppler Measurements & Calculations MV E max diogo: 106.8 cm/sec Lat Peak E' Diogo: 9.5 cm/sec Med Peak E' Diogo: 6.2 cm/sec MV A max diogo: 119.6 cm/sec E/E' lat: 11.2 E/E' med: 17.3 MV E/A: 0.89 Ao V2 max: 269.9 cm/sec AI max diogo: 439.6 cm/sec LV V1 max: 121.4 cm/sec Ao max P.1 mmHg AI max P.3 mmHg LV V1 max P.9 mmHg Ao V2 mean: 196.6 cm/sec LV V1 mean P.1 mmHg Ao mean P.0 mmHg AI dec slope: 255.8 cm/sec2 LV V1 mean: 84.0 cm/sec Ao V2 VTI: 67.9 cm AI P1/2t: 503.3 msec LV V1 VTI: 29.9 cm AV (velocity ratio): 0.44 SACHIN(I,D): 1.3 cm2 SACHIN(V,D): 1.3 cm2 SV(LVOT): 88.1 ml PA V2 max: 104.5 cm/sec TR max diogo: 283.5 cm/sec TR max P.1 mmHg ECHO/Echo Complete Interpretation Summary Normal LV size. Left ventricular systolic function is normal. The left ventricular ejection fraction is 60 %. Pulmonary artery systolic pressure is 36 mmHg. Bioprosthetic aortic valve. Mean aortic valve gradient 17 mmHg. Compared to the previous the above is unchanged. Ordering Physician: Yong Mora Referring Physician: SAQIB JUÁREZ Performed By: Cassandra Jordan RDCS 03/30/25 1049 Date _ Yong Mora MD CC: Dr. Yong Mora MD; Dr. Saqib Juárez MD ~ Date Dictated: 03/26/25 1110 Date Transcribed: 03/30/25 104 Management Intern: Signed [facility] Work Phone: Echo Completeon 03-26-2025 Echo Complete [facility] [address] [place] [address] Echo Complete 03/26/25 111 MR#: [id number] Acct: [id number] Name: KARYN MULLER Rep #: [id number] : 1945 79 From: Yong Mora MD Attending Dr: Dr. Yong Mora MD Status: [facility] Ordering Dr: Yong Mora MD Date: 03/26/25 Location: [facility] Sex: F C Admitted: Reason For Study Reason For Study: PROSTHETIC HEART VALVE Procedure This was a 2D Doppler, Color Flow transthoracic echocardiogram. Exam performed in department. Left Ventricle Normal LV size. Left ventricular systolic function is normal. The left ventricular ejection fraction is 60 %. No regional wall motion abnormalities noted. Right Ventricle Normal RV size. Normal systolic function. Atria Normal left atrium. Normal right atrium. Mitral Valve Normal mitral valve. Mild (1+) eccentric mitral valve insufficiency. Tricuspid Valve Normal tricuspid valve. Mild (1+) tricuspid valve insufficiency. Pulmonary artery systolic pressure is 36 mmHg. Aortic Valve Peak aortic valve gradient 29 mmHg. Mean aortic valve gradient 17 mmHg. Mild (1+) aortic valve insufficiency. Bioprosthetic aortic valve. Pulmonic Valve Normal pulmonic valve. Great Vessels Normal aortic root. The pulmonary artery is normal size. Inferior vena cava collapse with respiration. Pericardium/Pleural No pericardial effusion. MMode/2D Measurements Calculations LVIDd: 4.3 cm IVSd: 0.93 cm LVOT diam: 1.9 cm LVIDs: 2.6 cm LVPWd: 0.94 cm LVOT area: 2.9 cm2 RVDd: 3.5 cm FS: 38.2 % Ao root diam: 2.6 cm LAV(MOD-bp): 48.2 ml LVAd ap4: 26.1 cm2 LAV(MOD-bp) Indexed: 26.9 ml/m2 LVLd ap4: 7.9 cm LAV(MOD-sp2): 48.9 ml EDV(MOD-sp4): 69.5 ml LAV(MOD-sp4): 43.1 ml EDV(sp4-el): 73.7 ml LVAs ap4: 13.3 cm2 LVLs ap4: 6.4 cm ESV(MOD-sp4): 23.8 ml ESV(sp4-el): 23.5 ml EF(MOD-sp4): 65.7 % EF(sp4-el): 68.2 % SV(MOD-sp4): 45.7 ml SV(sp4-el): 50.3 ml LA A4 area: 17.8 cm2 SI(MOD-sp4): 25.5 ml/m2 LA dimension(2D): 3.9 cm RA A4 area: 16.8 cm2 TAPSE: 1.9 cm Time Measurements MV dec time: 0.35 sec Doppler Measurements Calculations MV E max diogo: 106.8 cm/sec Lat Peak E' Diogo: 9.5 cm/sec Med Peak E' Diogo: 6.2 cm/sec MV A max diogo: 119.6 cm/sec E/E' lat: 11.2 E/E' med: 17.3 MV E/A: 0.89 Ao V2 max: 269.9 cm/sec AI max diogo: 439.6 cm/sec LV V1 max: 121.4 cm/sec Ao max P.1 mmHg AI max P.3 mmHg LV V1 max P.9 mmHg Ao V2 mean: 196.6 cm/sec LV V1 mean P.1 mmHg Ao mean P.0 mmHg AI dec slope: 255.8 cm/sec2 LV V1 mean: 84.0 cm/sec Ao V2 VTI: 67.9 cm AI P1/2t: 503.3 msec LV V1 VTI: 29.9 cm AV (velocity ratio): 0.44 SACHIN(I,D): 1.3 cm2 SACHIN(V,D): 1.3 cm2 SV(LVOT): 88.1 ml PA V2 max: 104.5 cm/sec TR max diogo: 283.5 cm/sec TR max P.1 mmHg ECHO/Echo Complete Interpretation Summary Normal LV size. Left ventricular systolic function is normal. The left ventricular ejection fraction is 60 %. Pulmonary artery systolic pressure is 36 mmHg. Bioprosthetic aortic valve. Mean aortic valve gradient 17 mmHg. Compared to the previous the above is unchanged. Ordering Physician: Yong Mora Referring Physician: SAQIB JUÁREZ Performed By: Cassandra Jordan RDCS 03/30/25 1049 Date Yong Mora MD CC: Dr. Yong Mora MD; Dr. Saqib Juárez MD Date Dictated: 03/26/25 1110 Date Transcribed: 03/30/25 1049 Management Intern: Signed Normal [facility] Cardiology Visit Reporton Cardiology Visit Report [facility] [employer] [place] [address] OFFICE VISIT Date of Service: 03/23/25 MR#: [id number] Acct: [id number] Name: KARYN MULLER Rep #: [id number] : 1945 Provider: Dr. Yong Mora MD Age/Sex: 79/F Location: [facility] Status: Signed HPI HPI History of Present Illness Details: This is a 79-year-old female who presents for a cardiovascular outpatient follow-up. She has a cardiovascular history of aortic valve replacement with a bioprosthetic #21 trifecta valve at [facility] in [place] [address] Sutherland. Prior [...] air Intake Visit Reasons: 1 Y FU [employer] Professor Required: No Accompanied by: Self Is patient [...] the past year?: No PFSH Medical History Left hip pain Pruritus Preop exam for internal medicine Wears hearing aid Wears glasses Alcohol use Low iron Restless legs Heartburn CPAP (continuous positive airway pressure) dependence Former smoker Liliane (more content not included)... Normal [facility] Pulmonary Visit Reporton Pulmonary Visit Report [facility] [address] [place] [address] OFFICE VISIT Date of Service: 03/16/25 MR#: [id number] Acct: [id number] Name: KARYN MULLER Rep #: [id number] : 1945 Provider: ROE Suh Age/Sex: 79/F Location: [facility] Status: Signed Assessment and Plan Assessment and [...] Additional Comments: This note was generated with LearnUpation software. It may contain incorrect words, spelling, [...] 1 Y FU Chief Complaint: Groin Pain [employer] Professor Required: No DME Vendor: Eben Accompanied by: Self Allergies meloxicam Adverse Reaction (Verified 03/16/25 15:20) Nausea methotrexate Adverse Reaction (Verified 03/16/25 15:20) Nausea NSAIDS (Non-Steroidal Anti-Inflamma Adverse Reaction (Verified 03/16/25 15:20) Nausea Sulfa (Sulfonamide Antibiotics) Adverse Reaction (Verified 06/17/25 15:20) Nausea Medications ???Medication ???Instructions ???Recorded ???Confirmed [...] #8.5 grams (more content not included)... Normal [facility] PT D/C Summary (1)on 025 PT D/C Summary (1) [facility] Physical Therapy [address] [place] [address] / REHABILITATION SERVICES DISCHARGE SUMMARY MR#: [id number] Acct: [id number] Name: KARYN MULLER Rep #: [id number] : 1945 79 From: Sonu Mast PT, ATC Referring Dr.: Dr. Saqib Juárez MD Status: R EG RCR Insurance: MEDICARE PART A B [facility] Discharge Summary D/C summary: It has been my pleasure to treat KARYN MULLER referred by Dr. Saqib Juárez MD, with the diagnosis of L hip [...] please feel free to call me at [phone]. Thank you for the referral of this patient. Sincerely, Sonu Mast, PT, ATC Balance/Gait/Functional tests Balance/Special Test Scores Lower Extremity Functional Score: 45 01/22/25 1001 CC: Dr. Saqib Juárez MD [facility] Signed Normal [facility] MR/BMS.Bon 12-30-2024 MR/BMS.IMB [facility] [address] [facility] [address] [place] [address] OFFICE VISIT Date of Service: 12/30/24 MR#: [id number] Acct: [id number] Name: KARYN MULLER Rep #: [id number] : 1945 Provider: Dr. Saqib joya MD Age/Sex: 79/F Location: [facility] Status: Signed Intake Vital Signs 12/01/24 14:34 [...] Reasons: Groin Pain Chief Complaint: Groin Pain [employer] Professor Required: No Accompanied by: Self Is patient [...] History (Updated 12/30/24 @ 10:[address] 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 She has completed physical damage appraiser (more content not included)... Normal [facility] PT D/C Summary (1)on 025 PT D/C Summary (1) [facility] Physical Therapy [facility] [address] [place] [address]. [address] [place] [address] / REHABILITATION SERVICES DISCHARGE SUMMARY MR#: [id number] Acct: [id number] Name: KARYN MULLER Rep #: [id number] : 1945 79 From: Sonu Mast PT, ATC Referring Dr.: Dr. Daniel Lim MD Status: R EG RCR Insurance: MEDICARE PART A B [facility] Discharge Summary D/C summary: It has been [...] please feel free to call me at [phone]. Thank you for the referral of this patient. Sincerely, Sonu Mast, PT, ATC Balance/Gait/Functional tests Balance/Special Test Scores Lower Extremity Functional Score: 27 WOMAC Total Score: 20 WOMAC Percentage: 79.1700 Improvement % Improvement: 90 12/04/24 1233 CC: Dr. Daniel Lim MD; Dr. Saqib Juárez MD [facility] Signed Normal [facility] Urine Cultureon 12-03-2024 URC Presumptive E. coli [place] Count >100,000 Presumptive E. coli: REACTION Ampicillin [...] TMP SMX Islt DEBORA <=20 S Normal [facility] Comment on above: Performed By: #### M 100.2200 #### [facility] [address] [place], [address] Laboratory - Chemistry and C hemistry - challengeOrdered By: Deondre Philip on 12-01-2024 Bilirubin Ql (U) Negative [facility] Glucose Ql (U) Negative [facility] Ketones Ql (U) Trace (5) [facility] pH (U) 6.5 [pH] [facility] Specific gravity (U) [Rel density] 1.015 [facility] Urobilinogen (U) [Mass/Vol] 1 mg/dL [facility] Laboratory - Hematology and Cell countsOrdered By: Deondre Philip on 12-01-2024 Hemoglobin Ql (U) Negative [facility] Laboratory - Specimen inform ationOrdered By: Deondre Philip on 12-01-2024 Clarity (U) Clear [facility] Color (U) Yellow [facility] Laboratory - UrinalysisOrder ed By: Deondre Philip on 12-01-2024 Nitrite Ql (U) Positive [facility] Protein Ql (U) Trace [facility] No Panel InformationOrdered By: Deondre Philip on 12-01-2024 Urine Leukocytes Positive [facility] Comment on above: moderate Urine Non-Hemolyzed Blood Negative [facility] Urgent Care Visit Reporton 0 12-01-2024 Urgent Care Visit Report [facility] [address], [address] [place], [place] [id number] OFFICE VISIT Date of Service: 12/01/24 MR#: [id number] Acct: [id number] Name: KARYN MULLER Rep #: [id number] : 1945 Provider: ROBLES Bañuelos Age/Sex: 79/F Location: [facility] Status: Signed Intake Vital Signs 08/31/24 11:12 [...] (vitamin B-12) 1,000 mcg PO DAILY SUPPLEMENT 01/2812/01/24 History 1,000 mcg tablet aspirin 81 mg tablet,delayed 81 mg PO QDAY heart health 8 12/01/24 History release (Adult Low Dose Aspirin) calcium 600 mg (as carbonate)-vit 1 tab PO QDAY vitamin 10/02/17 History D3 10 mcg (400 unit)-minerals tablet multivitamin 1 tab PO DAILY vitamin 02/02/19 History ascorbic acid (vitamin C) 1,000 mg 1 g PO BID vitamin 02/10/21/01/22 History tablet acetaminophen 650 mg 1,300 mg [...] has been going on for 3.5 days. 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 Normal [facility] Urine cultureOrdered By: Larry Philip on 12-01-2024 Bacteria identified Cx Nom (U) Presumptive E. coli Abnormal [facility] Inital Evaluation (1) - PTon 11-04-2024 Inital Evaluation (1) - PT [facility] Physical Therapy [facility] [address] [place] [address]. [address] [place] [address] / REHABILITATION SERVICES INITIAL EVALUATION MR#: [id number] Acct: [id number] Name: KARYN MULLER Rep #: [id number] : 1945 79 From: Sonu Mast PT, ATC Referring Dr.: Dr. Daniel Lim MD Status: R EG RCR Insurance: MEDICARE PART A B [facility] Patient's Visit Information Visit Information Visit Information: KARYN MULLER is a 79 year old F referred to Physical Therapy by Dr. 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 Date of Evaluation: 11/04/24 Physical Therapist: Sonu Mast PT, ATC Visit Plan Frequency: 2-3x /Week Duration: 4 Weeks Plan: R knee stretching and strengthening, balance and proprio, core stab ex's, nustep, and HEP Subjective Subjective: DOS: 1/8/25. 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 2/10 pain while sitting here at rest, [...] to be FAXED BACK to us at [phone] for Medicare purposes. For Medicare only, by signing this I certify the plan of care. Please let me know if there are questions or concerns regarding this plan of care. Physician Signature: Date: 11/04/24 1429 CC: Dr. Daniel Lim MD; Dr. Saqib Juárez MD [facility] Signed Normal [facility] Cardiology Visit Reporton Cardiology Visit Report [facility] [place] [id number] [facility] [place] [address] OFFICE VISIT Date of Service: 08/31/24 MR#: [id number] Acct: [id number] Name: KARYN MULLER Rep #: [id number] : 1945 Provider: ROE portillo Age/Sex: 79/F Location: [facility] Status: Signed HPI HPI History of Present Illness Details: This is a 79-year-old female who presents for a cardiovascular outpatient follow-up. She has a cardiovascular history of aortic valve replacement with a bioprosthetic #21 trifecta valve at [facility] in [place] [address] Sutherland. Prior [...] air Intake Visit Reasons: 6 M FU [employer] Professor Required: No Is patient in pain?: No [...] got home BP 190/80's. Gradually went down. [facility] Medical History Pruritus Preop exam for internal medicine Wears hearing aid Wears glasses Alcohol use Low iron Restless legs Heartburn CPAP (continuous positive airway pressure) dependence F (more content not included)... Normal [facility] MR/Juan 08-17-2024 MR/NATALIO [facility] [address] [place], [place] [address] OFFICE VISIT Date of Service: 08/17/24 MR#: [id number] Acct: [id number] Name: KARYN MULLER Rep #: [id number] : 1945 Provider: Dr. Saqib joya MD Age/Sex: 79/F Location: [facility] Status: Signed with Addenda ADDENDUM by Dr. Saqib Juárez MD on 09/17/24 at 0957 HPI Details: KARYN MULLER, is a 79 F who presents to the office today for Assessment and Plan Assessment and Plan (1) Preop exam for internal medicine: Status: Acute (2) History of coronary artery stent placement: Status: Acute Comment: [id number] LAD at D2 bifurcation w/ 3.5 x 18 mm [facility] Stent and POBA-D2 03/02/22; (3) Nonrheumatic aortic (valve) stenosis: Status: Chronic (4) H/O aortic valve replacement: Status: Chronic Comment: # 21 Trifecta Valve @ [facility] Dr Sutherland (5) Essential (primary) hypertension: Status: [...] be having total knee replacement, Dr. Lim, [facility] on October 07, 2024. At this time I have no specific reason why she cannot proceed to surgery. She is previously already for this surgery, had cardiac clearance. EKG from [facility], dated 09/16/2024 shows old age-indeterminate anteroseptal infarct, similar to her previous EKGs. At last visit, she had no new untoward symptoms concerning for obstructive coronary disease, or any other acute issues. At this point in time she may proceed to surgery. 09/17/24 0957 Date Saqib Juárez MD cc: * Signed Intake Vital Signs [...] Intake Visit Reasons: Rash Chief Complaint: rash [employer] Professor Required: No Accompanied by: Self Is patient [...] you fallen in the past year?: No [facility] Medical History (Updated 08/17/24 @ 16:[address] Saqib Juárez MD) Pruritus Preop exam for internal medicine Wears hearing aid Wears glasses Alcohol use Low iron Restless legs Heartburn CPAP (continuous posit (more content not included)... Normal [facility] PT D/C Summary (1)on 024 PT D/C Summary (1) [facility] Physical Therapy [facility] [address] [place] [address] [address] [place] [id number] / REHABILITATION SERVICES DISCHARGE SUMMARY MR#: [id number] Acct: [id number] Name: KARYN MULLER Rep #: [id number] : 1945 78 From: Benny Bird DPT, OCS, CSCS Referring Dr.: Dr. Obed Medina DO Status: R EG RCR Insurance: MEDICARE PART A B [facility] Discharge Summary D/C summary: It has been [...] doing well and will get back to [facility] [place] [facility] [place] [facility] [place] and feels like she can do [...] please feel free to call me at [phone]. Thank you for the referral of this patient. Sincerely, Benny Bird, DPT, OCS, CSCS Balance/Gait/Functional tests Balance/Special Test Scores Lower Extremity Functional Score: 42 Improvement % Improvement: 40 07/13/24 0929 CC: Dr. Obed Medina DO; Dr. Saqib Juárez MD EBG Signed Normal [facility] Absolute lymphocyte countOrd ered By: Saqib Juárez on 02-03-2024 Lymphocytes Auto (Unsp spec) [#/Vol] 1.37 10*3/uL 0.83-4.51 [facility] Automated lymphocyte count a s percentage of total leukocytesOrdered By: Saqib Juárez on 02-03-2024 Lymphocytes/100 WBC Auto (Unsp spec) 20.0 % 19-41 [facility] Basophil percentageOrdered B y: Saqib Juárez on 02-03-2024 Basophils/100 WBC (Bld) 0.4 % 0-1 [facility] Bilirubin [Mass/Vol] 0.40 mg/dL 0.20-1.00 [facility] Comment on above: For patients on eltr ombopag therapy, use of Dimension Evangeline TBIL is not recommended. Chloride [Moles/Vol] 98 mmol/L 98-107 [facility] Cholesterol [Mass/Vol] 176 mg/dL <200 [facility] Comment on above: <200 mg/dL Desirable 200-240 mg/dL Borderline >240 mg/dL High Risk Eosinophils/100 WBC (Bld) 3.6 % 0-5 [facility] Glucose [Mass/Vol] 141 mg/dL 74-106 [facility] Comment on above: Fasting Glucose resu lt greater than or equal to 126 mg/dL suggests DIABETES MELLITUS per A.D.A. criteria. Hemoglobin (Bld) [Mass/Vol] 12.4 g/dL 12.0-15.0 [facility] Monocytes/100 WBC (Bld) 10.6 % 0-10 [facility] Neutrophils (Bld) [#/Vol] 4.5 10*3/uL 2.0-7.7 [facility] Neutrophils/100 WBC (Bld) 65.0 % 47-70 [facility] Potassium [Moles/Vol] 3.8 mmol/L 3.5-5.1 [facility] Protein [Mass/Vol] 7.1 g/dL 6.4-8.2 [facility] Sodium [Moles/Vol] 133 mmol/L 136-145 [facility] Triglyceride [Mass/Vol] 151 mg/dL <199 [facility] Comment on above: The drugs N-Acetylcy steine and Metamizole may falsely depress this assay.Serum Triglycerides Reference Interval Normal <150 mg/dL Borderline high 150 - 199 mg/dL High 200 - 499 mg/dL Very High > or = 500 mg/dL WBC (Bld) [#/Vol] 6.9 10*3/uL 4.4-11.0 [facility] Determination of erythrocyte mean corpuscular volume (MCV)Ordered By: Saqib Juárez on 02-03-2024 MCV (RBC) [Entitic vol] 92.6 fL 81-99 [facility] Erythrocyte distribution wid th ratioOrdered By: Saqib Juárez on 02-03-2024 Erythrocyte distribution width (RBC) [Ratio] 13.1 % 11.6-14.6 [facility] Erythrocyte distribution wid th standard deviationOrdered By: Saqib Juárez on 02-03-2024 Erythrocyte distribution width (RBC) [Entitic vol] 44.0 fL 35.1-43.9 [facility] Hematocrit Auto (Bld) [Volum e fraction]Ordered By: Saqib Juárez on 02-03-2024 Hematocrit (Bld) [Volume fraction] 37.7 % 37-47 [facility] Immature granulocytes/100 WB C Auto (Bld)Ordered By: Saqib Juárez on 02-03-2024 Immature granulocytes/100 WBC (Bld) 0.400 % 0.0-0.9 [facility] Comment on above: IG% - Immature Granu locytes (promyelocytes, myelocytes and metamyelocytes) > 1% indicates that a LEFT SHIFT is Present. Laboratory - Chemistry and C hemistry - challengeOrdered By: Saqib Juárez on 02-03-2024 Albumin/Globulin [Mass ratio] 1.1 {ratio} 0.9-2.4 [facility] ALP [Catalytic activity/Vol] 67 U/L 45-117 [facility] ALT [Catalytic activity/Vol] 26 U/L 13-56 [facility] Cholesterol in HDL [Mass/Vol] 60 mg/dL >40 [facility] Comment on above: The drugs N-Acetylcy steine and Metamizole may falsely depress this assay. Reference Range HDL <40 mg/dL Low HDL Cholesterol HDL >or= 60 mg/dL High HDL Cholesterol Cholesterol in LDL [Mass/Vol] 86 mg/dL 0-130 [facility] CO2 [Moles/Vol] 26.0 mmol/L 21.0-32.0 [facility] Globulin (S) [Mass/Vol] 3.4 g/dL 2.2-4.2 [facility] Urea nitrogen/Creatinine [Mass ratio] 22.7 mg/mg 10-20 [facility] Laboratory - Hematology and Cell countsOrdered By: Saqib Juárez on 02-03-2024 MCH (RBC) [Entitic mass] 30.5 pg 27.0-32.0 [facility] MCHC (RBC) [Mass/Vol] 32.9 g/dL 32-36 [facility] Nucleated RBC/100 WBC (Bld) [Ratio] 0 % 0-5 [facility] Platelet mean volume (Bld) [Entitic vol] 8.8 fL 6.2-12.0 [facility] Platelets (Bld) [#/Vol] 292 10*3/uL 150-450 [facility] No Panel InformationOrdered By: Saqib Juárez on 02-03-2024 Estimated GFR (MDRD) Amer 90 mL/min >60 [facility] Comment on above: GFR Calc Estimated GFR (MDRD) Non-Af Amer 74 mL/min >60 [facility] Comment on above: Non- GFR Calc Vitamin D 25-Hydroxy 33.6 ng/mL [facility] Comment on above: Vitamin D 25(OH) Sta tus Range Deficiency <20 ng/mL (50nmol/L) Insufficiency 20 - 30 ng/mL (50 - 75 nmol/L) Sufficiency 30 - 100 ng/mL (75 - 250 nmol/L) Toxicity >100 ng/mL (>250 nmol/L) VLDL Cholesterol 30 mg/dL 5-40 [facility] RBC Auto (Bld) [#/Vol]Ordere d By: Saqib Juárez on 02-03-2024 RBC (Bld) [#/Vol] 4.07 10*6/uL 4.2-5.4 [facility] Serum or plasma calcium loretta urement (mass/volume)Ordered By: Saqib Juárez on 02-03-2024 Calcium [Mass/Vol] 9.2 mg/dL 8.5-10.1 [facility] Serum or plasma creatinine m easurement (mass/volume)Ordered By: Saqib Juárez on 02-03-2024 Creatinine [Mass/Vol] 0.79 mg/dL 0.55-1.02 [facility] Comment on above: The validity of the calculated GFR & GFRAA in patients over 70 years has not been determined. Clinical correlation is essential. Serum or plasma thyroid stim ulating hormone (TSH) measurement (units/volume)Ordered By: Saqib Juárez on 02-03-2024 TSH Qn 1.86 uIU/mL 0.358-3.74 [facility] Serum or plasma urea nitroge n measurement (mass/volume)Ordered By: Saqib Juárez on 02-03-2024 Urea nitrogen [Mass/Vol] 18 mg/dL 7-18 [facility] Thin prep Papanicolaou smear with manual screeningOrdered By: Saqib Juárez on 02-03-2024 Thin prep Papanicolaou smear with manual screening 3.7 g/dL 3.2-5.0 [facility] Thin prep Papanicolaou smear with manual screening 18 U/L 15-37 [facility] Thin prep Papanicolaou smear with manual screening 9 5-15 [facility] Whole blood hemoglobin A1c/t otal hemoglobin ratio (mass fraction)Ordered By: Saqib Juárez on 02-03-2024 HbA1c (Bld) [Mass fraction] 6.6 % 3.8-5.6 [facility] Comment on above: Normal < 5.7 % Predi abetic 5.7 - 6.4 % Diabetic >or= 6.5 % Please note range changes. Absolute lymphocyte countOrd ered By: Rose Díaz on 01-31-2024 Lymphocytes Auto (Unsp spec) [#/Vol] 1.29 10*3/uL 0.83-4.51 [facility] Automated lymphocyte count a s percentage of total leukocytesOrdered By: Rose Díaz on 01-31-2024 Lymphocytes/100 WBC Auto (Unsp spec) 19.3 % 19-41 [facility] Basophil percentageOrdered B y: Rose Díaz on 01-31-2024 Basophils/100 WBC (Bld) 0.6 % 0-1 [facility] Chloride [Moles/Vol] 100 mmol/L 98-107 [facility] Eosinophils/100 WBC (Bld) 4.2 % 0-5 [facility] Glucose [Mass/Vol] 123 mg/dL 74-106 [facility] Comment on above: Fasting Glucose resu lt from 100 to 125 mg/dL suggests IMPAIRED HOMEOSTASIS per A.D.A. criteria. Hemoglobin (Bld) [Mass/Vol] 11.9 g/dL 12.0-15.0 [facility] Monocytes/100 WBC (Bld) 12.0 % 0-10 [facility] Neutrophils (Bld) [#/Vol] 4.2 10*3/uL 2.0-7.7 [facility] Neutrophils/100 WBC (Bld) 63.3 % 47-70 [facility] Potassium [Moles/Vol] 3.7 mmol/L 3.5-5.1 [facility] Sodium [Moles/Vol] 134 mmol/L 136-145 [facility] WBC (Bld) [#/Vol] 6.7 10*3/uL 4.4-11.0 [facility] Determination of erythrocyte mean corpuscular volume (MCV)Ordered By: Rose Díaz on 01-31-2024 MCV (RBC) [Entitic vol] 92.5 fL 81-99 [facility] Erythrocyte distribution wid th ratioOrdered By: Rose Díaz on 01-31-2024 Erythrocyte distribution width (RBC) [Ratio] 13.1 % 11.6-14.6 [facility] Erythrocyte distribution wid th standard deviationOrdered By: Rose Díaz on 01-31-2024 Erythrocyte distribution width (RBC) [Entitic vol] 44.0 fL 35.1-43.9 [facility] Hematocrit Auto (Bld) [Volum e fraction]Ordered By: Rose Díaz on 01-31-2024 Hematocrit (Bld) [Volume fraction] 35.9 % 37-47 [facility] Immature granulocytes/100 WB C Auto (Bld)Ordered By: Rose Díaz on 01-31-2024 Immature granulocytes/100 WBC (Bld) 0.600 % 0.0-0.9 [facility] Comment on above: IG% - Immature Granu locytes (promyelocytes, myelocytes and metamyelocytes) > 1% indicates that a LEFT SHIFT is Present. Laboratory - Chemistry and C hemistry - challengeOrdered By: Rose Díaz on 01-31-2024 CO2 [Moles/Vol] 29.0 mmol/L 21.0-32.0 [facility] Urea nitrogen/Creatinine [Mass ratio] 24.7 mg/mg 10-20 [facility] Laboratory - Hematology and Cell countsOrdered By: Rsoe Díza on 01-31-2024 MCH (RBC) [Entitic mass] 30.7 pg 27.0-32.0 [facility] MCHC (RBC) [Mass/Vol] 33.1 g/dL 32-36 [facility] Nucleated RBC/100 WBC (Bld) [Ratio] 0 % 0-5 [facility] Platelet mean volume (Bld) [Entitic vol] 9.2 fL 6.2-12.0 [facility] Platelets (Bld) [#/Vol] 301 10*3/uL 150-450 [facility] No Panel InformationOrdered By: Rose Díaz on 01-31-2024 Estimated GFR (MDRD) Amer 113 mL/min >60 [facility] Comment on above: GFR Calc Estimated GFR (MDRD) Non-Af Amer 94 mL/min >60 [facility] Comment on above: Non- GFR Calc RBC Auto (Bld) [#/Vol]Ordere d By: Rose Díaz on 01-31-2024 RBC (Bld) [#/Vol] 3.88 10*6/uL 4.2-5.4 [facility] Serum or plasma calcium loretta urement (mass/volume)Ordered By: Rose Díaz on 01-31-2024 Calcium [Mass/Vol] 9.8 mg/dL 8.5-10.1 [facility] Serum or plasma creatinine m easurement (mass/volume)Ordered By: Rose Díaz on 01-31-2024 Creatinine [Mass/Vol] 0.65 mg/dL 0.55-1.02 [facility] Comment on above: The validity of the calculated GFR & GFRAA in patients over 70 years has not been determined. Clinical correlation is essential. Serum or plasma thyroid stim ulating hormone (TSH) measurement (units/volume)Ordered By: Rose Díaz on 01-31-2024 TSH Qn 1.48 uIU/mL 0.358-3.74 [facility] Serum or plasma urea nitroge n measurement (mass/volume)Ordered By: Rose Díaz on 01-31-2024 Urea nitrogen [Mass/Vol] 16 mg/dL 7-18 [facility] Thin prep Papanicolaou smear with manual screeningOrdered By: Rose Díaz on 01-31-2024 Thin prep Papanicolaou smear with manual screening 5 5-15 [facility] Basophil percentageon 2021 Bilirubin [Mass/Vol] 0.40 mg/dL 0.20-1.00 [facility] Work Phone: [phone] Comment on above: For patients on eltr ombopag therapy, use of Dimension Evangeline TBIL is not recommended. Cholesterol [Mass/Vol] 171 mg/dL <200 [facility] Work Phone: [phone] Comment on above: <200 mg/dL Desirable 200-240 mg/dL Borderline >240 mg/dL High Risk Protein [Mass/Vol] 7.2 g/dL 6.4-8.2 [facility] Work Phone: [phone] Triglyceride [Mass/Vol] 141 mg/dL <199 [facility] Work Phone: [phone] Comment on above: The drugs N-Acetylcy steine and Metamizole may falsely depress this assay.Serum Triglycerides Reference Interval Normal <150 mg/dL Borderline high 150 - 199 mg/dL High 200 - 499 mg/dL Very High > or = 500 mg/dL Direct bilirubinon 2 Bilirubin.direct [Mass/Vol] 0.13 mg/dL 0.00-0.30 [facility] Work Phone: [phone] Laboratory - Chemistry and C hemistry - challengeon 03-19-2022 ALP [Catalytic activity/Vol] 62 U/L 45-117 [facility] Work Phone: [phone] ALT [Catalytic activity/Vol] 28 U/L 13-56 [facility] Work Phone: [phone] Globulin (S) [Mass/Vol] 3.4 g/dL 2.2-4.2 [facility] Work Phone: [phone] Serum or plasma albumin loretta urement (mass/volume)on 03-19-2022 Albumin [Mass/Vol] 3.8 g/dL 3.2-5.0 [facility] Work Phone: [phone] Serum or plasma cholesterol in HDL measurement (mass/volume)on 03-19-2022 Cholesterol in HDL [Mass/Vol] 67 mg/dL >40 [facility] Work Phone: [phone] Comment on above: The drugs N-Acetylcy steine and Metamizole may falsely depress this assay. Reference Range HDL <40 mg/dL Low HDL Cholesterol HDL >or= 60 mg/dL High HDL Cholesterol Serum or plasma cholesterol in VLDL measurement (mass/volume)on 03-19-2022 Cholesterol in VLDL [Mass/Vol] 28 mg/dL 5-40 [facility] Work Phone: Serum or plasma low density lipoprotein (LDL) cholesterol measurement (mass/volume)on 03-19-2022 Cholesterol in LDL [Mass/Vol] 76 mg/dL 0-130 [facility] Work Phone: Thin prep Papanicolaou smear with manual screeningon 03-19-2022 Thin prep Papanicolaou smear with manual screening 18 U/L 15-37 [facility] Work Phone: Basophil percentageon 2021 Bilirubin [Mass/Vol] 0.30 mg/dL 0.20-1.00 [facility] Work Phone: Comment on above: For patients on eltr ombopag therapy, use of Dimension Evangeline TBIL is not recommended. Chloride [Moles/Vol] 101 mmol/L 98-107 [facility] Work Phone: [phone] Glucose [Mass/Vol] 129 mg/dL 74-106 [facility] Work Phone: Comment on above: Fasting Glucose resu lt greater than or equal to 126 mg/dL suggests DIABETES MELLITUS per A.D.A. criteria. Potassium [Moles/Vol] 3.7 mmol/L 3.5-5.1 [facility] Work Phone: [phone] Protein [Mass/Vol] 6.8 g/dL 6.4-8.2 [facility] Work Phone: [phone] Sodium [Moles/Vol] 136 mmol/L 136-145 [facility] Work Phone: [phone] WBC (Bld) [#/Vol] 7.8 10*3/uL 4.4-11.0 [facility] Work Phone: [phone] Blood erythrocytes count (nu mber/volume)on 03-03-2022 RBC (Bld) [#/Vol] 3.99 10*6/uL 4.2-5.4 [facility] Work Phone: [phone] Blood hemoglobin measurement (mass/volume)on 03-03-2022 Hemoglobin (Bld) [Mass/Vol] 12.4 g/dL 12.0-15.0 [facility] Work Phone: [phone] Blood platelet mean volumeon 03-03-2022 Platelet mean volume (Bld) [Entitic vol] 8.9 fL 6.2-12.0 [facility] Work Phone: [phone] Determination of erythrocyte mean corpuscular volume (MCV)on 03-03-2022 MCV (RBC) [Entitic vol] 94.7 fL 81-99 [facility] Work Phone: [phone] Hematocrit Auto (Bld) [Volum e fraction]on 03-03-2022 Hematocrit (Bld) [Volume fraction] 37.8 % 37-47 [facility] Work Phone: [phone] Laboratory - Chemistry and C hemistry - challengeon 03-03-2022 ALP [Catalytic activity/Vol] 50 U/L 45-117 [facility] Work Phone: ALT [Catalytic activity/Vol] 29 U/L 13-56 [facility] Work Phone: [phone] CO2 [Moles/Vol] 28.0 mmol/L 21.0-32.0 [facility] Work Phone: [phone] Globulin (S) [Mass/Vol] 3.3 g/dL 2.2-4.2 [facility] Work Phone: [phone] Urea nitrogen/Creatinine [Mass ratio] 24.3 mg/mg 10-20 [facility] Work Phone: [phone] Laboratory - Hematology and Cell countson 03-03-2022 Erythrocyte distribution width (RBC) [Entitic vol] 43.3 fL 35.1-43.9 [facility] Work Phone: [phone] Erythrocyte distribution width (RBC) [Ratio] 12.4 % 11.6-14.6 [facility] Work Phone: [phone] MCH (RBC) [Entitic mass] 31.1 pg 27.0-32.0 [facility] Work Phone: [phone] MCHC Auto (RBC) [Mass/Vol]on 03-03-2022 MCHC (RBC) [Mass/Vol] 32.8 g/dL 32-36 [facility] Work Phone: No Panel Informationon 03-03 Estimated Creatinine Clearance Calc 38.35 ml/min [facility] Work Phone: [phone] Estimated GFR (MDRD) Amer 104 mL/min >60 [facility] Work Phone: [phone] Comment on above: GFR Calc Estimated GFR (MDRD) Non-Af Amer 86 mL/min >60 [facility] Work Phone: Comment on above: Non- GFR Calc Platelets bldon 03-03-2022 Platelets (Bld) [#/Vol] 282 10*3/uL 150-450 [facility] Work Phone: Serum or plasma albumin loretta urement (mass/volume)on 03-03-2022 Albumin [Mass/Vol] 3.5 g/dL 3.2-5.0 [facility] Work Phone: [phone] Serum or plasma albumin/glob ulin mass ratioon 03-03-2022 Albumin/Globulin [Mass ratio] 1.1 {ratio} 0.9-2.4 [facility] Work Phone: [phone] Serum or plasma calcium loretta urement (mass/volume)on 03-03-2022 Calcium [Mass/Vol] 9.0 mg/dL 8.5-10.1 [facility] Work Phone: [phone] Serum or plasma creatinine m easurement (mass/volume)on 03-03-2022 Creatinine [Mass/Vol] 0.70 mg/dL 0.55-1.02 [facility] Work Phone: [phone] Comment on above: The validity of the calculated GFR & GFRAA in patients over 70 years has not been determined. Clinical correlation is essential. Serum or plasma urea nitroge n measurement (mass/volume)on 03-03-2022 Urea nitrogen [Mass/Vol] 17 mg/dL 7-18 [facility] Work Phone: Thin prep Papanicolaou smear with manual screeningon 03-03-2022 Thin prep Papanicolaou smear with manual screening 18 U/L 15-37 [facility] Work Phone: Thin prep Papanicolaou smear with manual screening 7 5-15 [facility] Work Phone: Absolute lymphocyte counton 02-22-2022 Lymphocytes Auto (Unsp spec) [#/Vol] 1.39 10*3/uL 0.83-4.51 [facility] Work Phone: Basophil percentageon 2021 Basophils/100 WBC (Bld) 0.4 % 0-1 [facility] Work Phone: Chloride [Moles/Vol] 98 mmol/L 98-107 [facility] Work Phone: Eosinophils/100 WBC (Bld) 2.3 % 0-5 [facility] Work Phone: Glucose [Mass/Vol] 112 mg/dL 74-106 [facility] Work Phone: Comment on above: Fasting Glucose resu lt from 100 to 125 mg/dL suggests IMPAIRED HOMEOSTASIS per A.D.A. criteria. Neutrophils (Bld) [#/Vol] 4.8 10*3/uL 2.0-7.7 [facility] Work Phone: Neutrophils/100 WBC (Bld) 67.4 % 47-70 [facility] Work Phone: Potassium [Moles/Vol] 3.6 mmol/L 3.5-5.1 [facility] Work Phone: Sodium [Moles/Vol] 135 mmol/L 136-145 [facility] Work Phone: WBC (Bld) [#/Vol] 7.1 10*3/uL 4.4-11.0 [facility] Work Phone: [phone] Blood erythrocytes count (nu mber/volume)on 02-22-2022 RBC (Bld) [#/Vol] 4.19 10*6/uL 4.2-5.4 [facility] Work Phone: [phone] Blood hemoglobin measurement (mass/volume)on 02-22-2022 Hemoglobin (Bld) [Mass/Vol] 13.2 g/dL 12.0-15.0 [facility] Work Phone: [phone] Blood lymphocytes/100 leukoc yteson 02-22-2022 Lymphocytes/100 WBC (Bld) 19.7 % 19-41 [facility] Work Phone: [phone] Blood monocytes/100 leukocyt eson 02-22-2022 Monocytes/100 WBC (Bld) 9.6 % 0-10 [facility] Work Phone: [phone] Blood platelet mean volumeon 02-22-2022 Platelet mean volume (Bld) [Entitic vol] 9.0 fL 6.2-12.0 [facility] Work Phone: [phone] Determination of erythrocyte mean corpuscular volume (MCV)on 02-22-2022 MCV (RBC) [Entitic vol] 93.8 fL 81-99 [facility] Work Phone: [phone] Hematocrit Auto (Bld) [Volum e fraction]on 02-22-2022 Hematocrit (Bld) [Volume fraction] 39.3 % 37-47 [facility] Work Phone: [phone] Laboratory - Chemistry and C hemistry - challengeon 02-22-2022 CO2 [Moles/Vol] 30.0 mmol/L 21.0-32.0 [facility] Work Phone: [phone] Urea nitrogen/Creatinine [Mass ratio] 29.6 mg/mg 10-20 [facility] Work Phone: [phone] Laboratory - Hematology and Cell countson 02-22-2022 Erythrocyte distribution width (RBC) [Entitic vol] 44.0 fL 35.1-43.9 [facility] Work Phone: [phone] Erythrocyte distribution width (RBC) [Ratio] 12.7 % 11.6-14.6 [facility] Work Phone: [phone] Immature granulocytes/100 WBC (Bld) 0.600 % 0.0-0.9 [facility] Work Phone: [phone] Comment on above: IG% - Immature Granu locytes (promyelocytes, myelocytes and metamyelocytes) > 1% indicates that a LEFT SHIFT is Present. MCH (RBC) [Entitic mass] 31.5 pg 27.0-32.0 [facility] Work Phone: [phone] Nucleated RBC/100 WBC (Bld) [Ratio] 0 % 0-5 [facility] Work Phone: [phone] MCHC Auto (RBC) [Mass/Vol]on 02-22-2022 MCHC (RBC) [Mass/Vol] 33.6 g/dL 32-36 [facility] Work Phone: [phone] No Panel Informationon 02-22 Estimated GFR (MDRD) Amer 92 mL/min >60 [facility] Work Phone: [phone] Comment on above: GFR Calc Estimated GFR (MDRD) Non-Af Amer 76 mL/min >60 [facility] Work Phone: Comment on above: Non- GFR Calc Platelets bldon 02-22-2022 Platelets (Bld) [#/Vol] 318 10*3/uL 150-450 [facility] Work Phone: [phone] Serum or plasma calcium loretta urement (mass/volume)on 02-22-2022 Calcium [Mass/Vol] 10.0 mg/dL 8.5-10.1 [facility] Work Phone: [phone] Serum or plasma creatinine m easurement (mass/volume)on 02-22-2022 Creatinine [Mass/Vol] 0.78 mg/dL 0.55-1.02 [facility] Work Phone: [phone] Comment on above: The validity of the calculated GFR & GFRAA in patients over 70 years has not been determined. Clinical correlation is essential. Serum or plasma urea nitroge n measurement (mass/volume)on 02-22-2022 Urea nitrogen [Mass/Vol] 23 mg/dL 718 [facility] Work Phone: Thin prep Papanicolaou smear with manual screeningon 02-22-2022 Thin prep Papanicolaou smear with manual screening 7 5-15 [facility] Work Phone: OBSOLETEon 04-04-2021 OBSOLETE Refill (TUNGPWS) KARYN MULLER ([id number]) 1945 F Date Time Provider Department 04/04/21 [...] Please advise. Thank you. Maria M Brewster APRN.CNP, DNP 04/04/2021 8:12 AM Signed The following approved medication requests have been transmitted electronically. Pending Prescriptions Disp Refills METOPROLOL SUCCINATE ER 50 MG TABLET,EXTENDED RELEASE 24 HR 90 tablet 0 Sig: TAKE 1 TABLET BY MOUTH EVERY DAY MICHAEL: Yes Wil Blaz, TRUCK JUMPER.LEGAL OFFICER, DNP Allergies As of Date: 04/04/2021 Noted Allergy [...] valve replacement (more content not included)... Normal [facility] OBSOLETEon 01-10-2021 OBSOLETE Refill (FAMPWS) KARYN MULLER ([id number]) 1945 F Date Time Provider Department 01/10/21 DORI SALAS III FAMPWS During your visit today, we recorded the following information about you: Anais Saez, RN, RN 01/10/2021 2:49 PM Signed Patient has been identified by name and date of : Yes Patient phones for refill(s): Pending Prescriptions Disp Refills METOPROLOL SUCCINATE ER 50 MG TABLET,EXTENDED RELEASE 24 HR 90 tablet Sig: Take 1 tablet by mouth once daily. MICHAEL: No Date of last office visit in primary care: 10/07/2020 Future Appointment: None Patient down in [place] and requesting refills to be sent to [...] Value 10/04/2020 23 Please advise. Thank you. DOMINIC Hernandez DNP.LEGAL OFFICER, TRUCK JUMPER.LEGAL OFFICER 01/10/2021 4:35 PM Signed The following approved medication requests have been transmitted electronically. Pending Prescriptions Disp Refills METOPROLOL SUCCINATE ER 50 MG TABLET,EXTENDED RELEASE 24 HR 90 tablet 0 Sig: Take 1 tablet by mouth once daily. MICHAEL: No Wil Brewster DNP.ANGELICA Allergies As of Date: 01/10/2021 Noted Allergy [...] Prescriptions orde (more content not included)... Normal [facility] Office Visiton 08-26-2017 Documentation of current medications (procedure) Done Invalid Interpretation Code [facility] Work Phone: [phone] Fall risk assessment No Invalid Interpretation Code [facility] Work Phone: [phone] Clinical Lists Update: Prelo road design draftsperson 08-19-2017 Left ventricular Ejection fraction 60-65 Invalid Interpretation Code [facility] [employer] Phone: [phone] Lab Report: Lipid Profileon 06-24-2017 Cholesterol 183 mg/dL Invalid Interpretation Code 200 [facility] Work Phone: [phone] HDL Cholesterol 50 mg/dL Invalid Interpretation Code [facility] Phone: [phone] LDL Cholesterol 102 mg/dL Invalid Interpretation Code 0-130 [facility] Work Phone: [phone] Triglyceride 153 mg/dL Invalid Interpretation Code [facility] Work Phone: [phone] very low density lipoproteins 31 mg/dL Invalid Interpretation Code 5-40 [facility] Work Phone: [phone] Lab Report: Vitamin D,25 Hyd roxyon 06-24-2017 Vitamin D 25-OH 26.8 ng/mL Invalid Interpretation Code [facility] Work Phone: [phone] Replaced Document: Liver Pro fileon 06-24-2017 Alanine aminotransferase (ALT) 18 U/L Invalid Interpretation Code 12-78 [facility] Work Phone: [phone] Albumin 3.4 g/dL Invalid Interpretation Code 3.4-5.0 [facility] Work Phone: [phone] Alkaline phosphatase (ALP) 75 U/L Invalid Interpretation Code 45-117 [facility] Work Phone: [phone] Aspartate aminotransferase (AST) 14 U/L Low 15-37 [facility] Work Phone: [phone] Bilirubin (direct) 0.07 mg/dL Invalid Interpretation Code 0.00-0.30 [facility] Work Phone: [phone] Bilirubin (total) 0.20 mg/dL Invalid Interpretation Code 0.20-1.00 [facility] Work Phone: [phone] Globulin 3.5 g/dL Invalid Interpretation Code 2.3-3.5 [facility] Work Phone: [phone] Protein 6.9 g/dL Invalid Interpretation Code 6.4-8.2 [facility] Work Phone: [phone] Office Visiton 05-21-2017 Documentation of current medications (procedure) Done Invalid Interpretation Code [facility] Work Phone: [phone] Fall risk assessment No Invalid Interpretation Code [facility] Work Phone: [phone] Clinical Lists Update: Prelo road design draftsperson 04-29-2017 Left ventricular Ejection fraction 65 % Invalid Interpretation Code [facility] Work Phone: [phone] Tobacco use CPHS Former smoker Invalid Interpretation Code [facility] Work Phone: [phone] Vital Signs Date Time Vital Sign Value Performing Clinician Constanza andrade 06-16-2025 08:47-0400 Body mass index (BMI) [Ratio] 30.1 kg/m2 Dr. Saqib Juárez MD Work Phone: [facility] 06-16-2025 08:47-0400 Body temperature 97.5 [degF] Dr. Saqib Juárez MD Work Phone: [facility] 06-16-2025 08:47-0400 Body weight 77.[address] Saqib Juárez MD Work Phone: [facility] 06-16-2025 08:47-0400 Diastolic blood pressure 70 mm[Hg] Dr. Saqib Juárez MD Work Phone: [facility] 06-16-2025 08:47-0400 Heart rate 70 /min Dr. Saqib Juárez MD Work Phone: [facility] 06-16-2025 08:47-0400 Respiratory rate 18 /min Dr. Saqib Juárez MD Work Phone: [facility] 06-16-2025 08:47-0400 SaO2% (BldA) [Mass fraction] 93 % Dr. Saqib Juárez MD Work Phone: [facility] 06-16-2025 08:47-0400 Systolic blood pressure 120 mm[Hg] Dr. Saqib Juárez MD Work Phone: [facility] 04-29-2025 11:43-0400 Body height 160.[address] Saqib Juárez MD Work Phone: [facility] 04-29-2025 11:43-0400 Body mass index (BMI) [Ratio] 29.7 kg/m2 Dr. Saqib Juárez MD Work Phone: [facility] 04-29-2025 11:43-0400 Body temperature 99.3 [degF] Dr. Saqib Juárez MD Work Phone: [facility] 04-29-2025 11:43-0400 Body weight 76.[address] Saqib Juárez MD Work Phone: [facility] 04-29-2025 11:43-0400 Diastolic blood pressure 63 mm[Hg] Dr. Saqib Juárez MD Work Phone: [facility] 04-29-2025 11:43-0400 Heart rate 77 /min Dr. Saqib Juárez MD Work Phone: [facility] 04-29-2025 11:43-0400 Respiratory rate 16 /min Dr. Saqib Juárez MD Work Phone: [facility] 04-29-2025 11:43-0400 SaO2% (BldA) [Mass fraction] 94 % Dr. Saqib Juárez MD Work Phone: [facility] 04-29-2025 11:43-0400 Systolic blood pressure 147 mm[Hg] Dr. Saqib Juárez MD Work Phone: [facility] 03-23-2025 14:28-0400 Body height 160.[address] Saqib Juárez MD Work Phone: [facility] 03-23-2025 14:28-0400 Body mass index (BMI) [Ratio] 29.7 kg/m2 Dr. Saqib Juárez MD Work Phone: [facility] 03-23-2025 14:28-0400 Body weight 76.[address] Saqib Juárez MD Work Phone: [facility] 03-23-2025 14:28-0400 Diastolic blood pressure 78 mm[Hg] Dr. Saqib Juárez MD Work Phone: [facility] 03-23-2025 14:28-0400 Heart rate 58 /min Dr. Saqib Juárez MD Work Phone: [facility] 03-23-2025 14:28-0400 Respiratory rate 18 /min Dr. Saqib Juárez MD Work Phone: [facility] 03-23-2025 14:28-0400 Systolic blood pressure 147 mm[Hg] Dr. Saqib Juárez MD Work Phone: [facility] 03-16-2025 08:31-0400 Body mass index (BMI) [Ratio] 29.9 kg/m2 Dr. Saqib Juárez MD Work Phone: [facility] 03-16-2025 08:31-0400 Body temperature 97.1 [degF] Dr. Saqib Juárez MD Work Phone: [facility] 03-16-2025 08:31-0400 Body weight 76.[address] Saqib Juárez MD Work Phone: [facility] 03-16-2025 08:31-0400 Diastolic blood pressure 52 mm[Hg] Dr. Saqib Juárez MD Work Phone: [facility] 03-16-2025 08:31-0400 Heart rate 65 /min Dr. Saqib Juárez MD Work Phone: [facility] 03-16-2025 08:31-0400 Respiratory rate 18 /min Dr. Saqib Juárez MD Work Phone: [facility] 03-16-2025 08:31-0400 SaO2% (BldA) [Mass fraction] 95 % Dr. Saqib Juárez MD Work Phone: [facility] 03-16-2025 08:31-0400 Systolic blood pressure 135 mm[Hg] Dr. Saqib Juárez MD Work Phone: [facility] 12-30-2024 09:42-0400 Body height 160.[address] Saqib Juárez MD Work Phone: [facility] 12-30-2024 09:42-0400 Body mass index (BMI) [Ratio] 29.7 kg/m2 Dr. Saqib Juárez MD Work Phone: [facility] 12-30-2024 09:42-0400 Body temperature 97.8 [degF] Dr. Saqib Juárez MD Work Phone: [facility] 12-30-2024 09:42-0400 Body weight 76.[address] Saqib Juárez MD Work Phone: [facility] 12-30-2024 09:42-0400 Diastolic blood pressure 75 mm[Hg] Dr. Saqib Juárez MD Work Phone: [facility] 12-30-2024 09:42-0400 Heart rate 59 /min Dr. Saqib Juárez MD Work Phone: [facility] 12-30-2024 09:42-0400 Respiratory rate 16 /min Dr. Saqib Juárez MD Work Phone: [facility] 12-30-2024 09:42-0400 SaO2% (BldA) [Mass fraction] 95 % Dr. Saqib Juárez MD Work Phone: [facility] 12-30-2024 09:42-0400 Systolic blood pressure 127 mm[Hg] Dr. Saqib Juárez MD Work Phone: [facility] 12-01-2024 14:34-0500 Body height 160.[address] Saqib Juárez MD Work Phone: [facility] 12-01-2024 14:34-0500 Body mass index (BMI) [Ratio] 29.8 kg/m2 Dr. Saqib Juárez MD Work Phone: [facility] 12-01-2024 14:34-0500 Body temperature 98.1 [degF] Dr. Saqib Juárez MD Work Phone: [facility] 12-01-2024 14:34-0500 Body weight 76.[address] Saqib Juárez MD Work Phone: [facility] 12-01-2024 14:34-0500 Diastolic blood pressure 66 mm[Hg] Dr. Saqib Juárez MD Work Phone: [facility] 12-01-2024 14:34-0500 Heart rate 69 /min Dr. Saqib Juárez MD Work Phone: [facility] 12-01-2024 14:34-0500 SaO2% (BldA) [Mass fraction] 98 % Dr. Saqib Juárez MD Work Phone: [facility] 12-01-2024 14:34-0500 Systolic blood pressure 120 mm[Hg] Dr. Saqib Juárez MD Work Phone: [facility] 08-31-2024 11:12-0500 Body mass index (BMI) [Ratio] 30.1 kg/m2 Dr. Saqib Juárez MD Work Phone: [facility] 08-31-2024 11:12-0500 Body weight 77.[address] Saqib Juárez MD Work Phone: [facility] 08-31-2024 11:12-0500 Diastolic blood pressure 67 mm[Hg] Dr. Saqib Juárez MD Work Phone: [facility] 08-31-2024 11:12-0500 Heart rate 67 /min Dr. Saqib Juárez MD Work Phone: [facility] 08-31-2024 11:12-0500 Respiratory rate 20 /min Dr. Saqib Juárez MD Work Phone: [facility] 08-31-2024 11:12-0500 SaO2% (BldA) [Mass fraction] 97 % Dr. Saqib Juárez MD Work Phone: [facility] 08-31-2024 11:12-0500 Systolic blood pressure 119 mm[Hg] Dr. Saqib Juárez MD Work Phone: [facility] 08-17-2024 13:58-0500 Body mass index (BMI) [Ratio] 30.1 kg/m2 Dr. Saqib Juárez MD Work Phone: [facility] 08-17-2024 13:58-0500 Body temperature 97.8 [degF] Dr. Saqib Juárez MD Work Phone: [facility] 08-17-2024 13:58-0500 Body weight 77.[address] Saqib Juárez MD Work Phone: [facility] 08-17-2024 13:58-0500 Diastolic blood pressure 72 mm[Hg] Dr. Saqib Juárez MD Work Phone: [facility] 08-17-2024 13:58-0500 Heart rate 65 /min Dr. Saqib Juárez MD Work Phone: [facility] 08-17-2024 13:58-0500 Respiratory rate 16 /min Dr. Saqib Juárez MD Work Phone: [facility] 08-17-2024 13:58-0500 SaO2% (BldA) [Mass fraction] 92 % Dr. Saqib Juárez MD Work Phone: [facility] 08-17-2024 13:58-0500 Systolic blood pressure 141 mm[Hg] Dr. Saqib Juárez MD Work Phone: [facility] 02-06-2024 10:01-0400 Body height 160.[address] Saqib Juárez Work Phone: [facility] 02-06-2024 10:01-0400 Body mass index (BMI) [Ratio] 29.7 kg/m2 Dr. Saqib Juárez Work Phone: [facility] 02-06-2024 10:01-0400 Body temperature 98.2 [degF] Dr. Saqib Juárez Work Phone: [facility] 02-06-2024 10:01-0400 Body weight 76.[address] Saqib Juárez Work Phone: [facility] 02-06-2024 10:01-0400 Diastolic blood pressure 77 mm[Hg] Dr. Saqib Juárez Work Phone: [facility] 02-06-2024 10:01-0400 Heart rate 59 /min Dr. Saqib uJárez Work Phone: [facility] 02-06-2024 10:01-0400 Respiratory rate 18 /min Dr. Saqib Juárez Work Phone: [facility] 02-06-2024 10:01-0400 SaO2% (BldA) [Mass fraction] 95 % Dr. Saqib Juárez Work Phone: [facility] 02-06-2024 10:01-0400 Systolic blood pressure 143 mm[Hg] Dr. Saqib Juárez Work Phone: [facility] 05-07-2023 09:35-0400 Body temperature 97.4 [degF] Dr. Saqib Juárez Work Phone: [facility] 05-07-2023 09:35-0400 Diastolic blood pressure 54 mm[Hg] Dr. Saqib Juárez Work Phone: [facility] 05-07-2023 09:35-0400 Heart rate 69 /min Dr. Saqib Juárez Work Phone: [facility] 05-07-2023 09:35-0400 Respiratory rate 16 /min Dr. Saqib Juárez Work Phone: [facility] 05-07-2023 09:35-0400 SaO2% (BldA) [Mass fraction] 92 % Dr. Saqib Juárez Work Phone: [facility] 05-07-2023 09:35-0400 Systolic blood pressure 107 mm[Hg] Dr. Saqib Juárez Work Phone: [facility] 05-07-2023 07:56-0400 Body height 160.[address] Saqib Juárez Work Phone: [facility] 05-07-2023 07:56-0400 Body mass index (BMI) [Ratio] 28.3 kg/m2 Dr. Saqib Juárez Work Phone: [facility] 05-07-2023 07:56-0400 Body weight 72.[address] Saqib Juárez Work Phone: [facility] 04-04-2023 09:47-0400 Body mass index (BMI) [Ratio] 29.7 kg/m2 Dr. Saqib Juárez Work Phone: [facility] 04-04-2023 09:47-0400 Body temperature 97 [degF] Dr. Saqib Juárez Work Phone: [facility] 04-04-2023 09:47-0400 Body weight 76.[address] Saqib Juárez Work Phone: [facility] 04-04-2023 09:47-0400 Diastolic blood pressure 70 mm[Hg] Dr. Saqib Juárez Work Phone: [facility] 04-04-2023 09:47-0400 Heart rate 64 /min Dr. Saqib Juárez Work Phone: [facility] 04-04-2023 09:47-0400 Respiratory rate 17 /min Dr. Saqib Juárez Work Phone: [facility] 04-04-2023 09:47-0400 SaO2% (BldA) [Mass fraction] 93 % Dr. Saqib Juárez Work Phone: [facility] 04-04-2023 09:47-0400 Systolic blood pressure 134 mm[Hg] Dr. Saqib Juárez Work Phone: [facility] 03-14-2023 09:33-0400 Body mass index (BMI) [Ratio] 29.7 kg/m2 Dr. Saqib Juárez Work Phone: [facility] 03-14-2023 09:33-0400 Body temperature 95.3 [degF] Dr. Saqib Juárez Work Phone: [facility] 03-14-2023 09:33-0400 Body weight 76.[address] Saqib Juárez Work Phone: [facility] 03-14-2023 09:33-0400 Diastolic blood pressure 72 mm[Hg] Dr. Saqib Juárez Work Phone: [facility] 03-14-2023 09:33-0400 Heart rate 85 /min Dr. Saqib Juárez Work Phone: [facility] 03-14-2023 09:33-0400 Respiratory rate 20 /min Dr. Saqib Juárez Work Phone: [facility] 03-14-2023 09:33-0400 SaO2% (BldA) [Mass fraction] 96 % Dr. Saqib Juárez Work Phone: [facility] 03-14-2023 09:33-0400 Systolic blood pressure 158 mm[Hg] Dr. Saqib Juárez Work Phone: [facility] 03-12-2023 10:43-0400 Body mass index (BMI) [Ratio] 29.4 kg/m2 Dr. Saqib Juárez Work Phone: [facility] 03-12-2023 10:43-0400 Body weight 75.[address] Saqib Juárez Work Phone: [facility] 03-12-2023 10:43-0400 Diastolic blood pressure 74 mm[Hg] Dr. Saqib Juárez Work Phone: [facility] 03-12-2023 10:43-0400 Heart rate 61 /min Dr. Saqib Juárez Work Phone: [facility] 03-12-2023 10:43-0400 Respiratory rate 18 /min Dr. Saqib Juárez Work Phone: [facility] 03-12-2023 10:43-0400 Systolic blood pressure 150 mm[Hg] Dr. Saqib Juárez Work Phone: [facility] 09-10-2022 14:01-0500 Heart rate 62 /min Dr. Saqib Juárez Work Phone: [facility] Work Phone: 09-10-2022 14:01-0500 Respiratory rate 16 /min Dr. Saqib Juárez Work Phone: [facility] Work Phone: 09-10-2022 14:01-0500 SaO2% (BldA) [Mass fraction] 96 % Dr. Saqib Juárez Work Phone: [facility] Work Phone: 09-10-2022 11:49-0500 Body height 160.[address] Saqib Juárez Work Phone: [facility] Work Phone: 09-10-2022 11:49-0500 Body mass index (BMI) [Ratio] 27.6 kg/m2 Dr. Saqib Juárez Work Phone: [facility] Work Phone: 09-10-2022 11:49-0500 Body temperature 96.6 [degF] Dr. Saqib Juárez Work Phone: [facility] Work Phone: 09-10-2022 11:49-0500 Body weight 70.[address] Saqib Juárez Work Phone: [facility] Work Phone: 09-10-2022 11:49-0500 Diastolic blood pressure 75 mm[Hg] Dr. Saqib Juárez Work Phone: [facility] Work Phone: 09-10-2022 11:49-0500 Systolic blood pressure 103 mm[Hg] Dr. Saqib Juárez Work Phone: [facility] Work Phone: 09-07-2022 13:31-0500 Body mass index (BMI) [Ratio] 29 kg/m2 Dr. Saqib Juárez Work Phone: [facility] Work Phone: 09-07-2022 13:31-0500 Body weight 74.[address] Saqib Juárez Work Phone: [facility] Work Phone: 09-07-2022 13:31-0500 Diastolic blood pressure 80 mm[Hg] Dr. Saqib Juárez Work Phone: [facility] Work Phone: 09-07-2022 13:31-0500 Heart rate 52 /min Dr. Saqib Juárez Work Phone: [facility] Work Phone: 09-07-2022 13:31-0500 Respiratory rate 18 /min Dr. Saqib Juárez Work Phone: [facility] Work Phone: 09-07-2022 13:31-0500 SaO2% (BldA) [Mass fraction] 97 % Dr. Saqib Juárez Work Phone: [facility] Work Phone: 09-07-2022 13:31-0500 Systolic blood pressure 148 mm[Hg] Dr. Saqib Juárez Work Phone: [facility] Work Phone: 09-06-2022 09:27-0500 Body mass index (BMI) [Ratio] 28.8 kg/m2 Dr. Saqib Juárez Work Phone: [facility] Work Phone: 09-06-2022 09:27-0500 Body temperature 96.8 [degF] Dr. Saqib Juárez Work Phone: [facility] Work Phone: 09-06-2022 09:27-0500 Body weight 73.[address] Saqib Juárez Work Phone: [facility] Work Phone: 09-06-2022 09:27-0500 Diastolic blood pressure 54 mm[Hg] Dr. Saqib Juárez Work Phone: [facility] Work Phone: 09-06-2022 09:27-0500 Heart rate 80 /min Dr. Saqib Juárez Work Phone: [facility] Work Phone: 09-06-2022 09:27-0500 Respiratory rate 20 /min Dr. Saqib Juárez Work Phone: [facility] Work Phone: 09-06-2022 09:27-0500 SaO2% (BldA) [Mass fraction] 93 % Dr. Saqib Juárez Work Phone: [facility] Work Phone: 09-06-2022 09:27-0500 Systolic blood pressure 115 mm[Hg] Dr. Saqib Juárez Work Phone: [facility] Work Phone: 07-26-2022 10:52-0400 Body temperature 98.2 [degF] Dr. Saqib Juárez Work Phone: [facility] Work Phone: 07-26-2022 10:52-0400 Body weight 73.[address] Saqib Juárez Work Phone: [facility] Work Phone: 07-26-2022 10:52-0400 Diastolic blood pressure 58 mm[Hg] Dr. Saqib Juárez Work Phone: [facility] Work Phone: 07-26-2022 10:52-0400 Heart rate 72 /min Dr. Saqib Juárez Work Phone: [facility] Work Phone: 07-26-2022 10:52-0400 Respiratory rate 16 /min Dr. Saqib Juárez Work Phone: [facility] Work Phone: 07-26-2022 10:52-0400 SaO2% (BldA) [Mass fraction] 96 % Dr. Saqib Juárez Work Phone: [facility] Work Phone: 07-26-2022 10:52-0400 Systolic blood pressure 118 mm[Hg] Dr. Saqib Juárez Work Phone: [facility] Work Phone: 07-16-2022 08:17-0400 Body weight 73.[address] Saqib Juárez Work Phone: [facility] Work Phone: 06-30-2022 01:31-0400 Body weight 72.[address] Saqib Juárez Work Phone: [facility] Work Phone: 06-28-2022 07:52-0400 Body height 160.[address] Saqib Juárez Work Phone: [facility] Work Phone: 06-28-2022 07:52-0400 Body mass index (BMI) [Ratio] 28.9 kg/m2 Dr. Saqib Juárez Work Phone: [facility] Work Phone: 06-28-2022 07:52-0400 Body temperature 98 [degF] Dr. Saqib Juárez Work Phone: [facility] Work Phone: 06-28-2022 07:52-0400 Body weight 74.[address] Saqib Juárez Work Phone: [facility] Work Phone: 06-28-2022 07:52-0400 Diastolic blood pressure 67 mm[Hg] Dr. Saqib Juárez Work Phone: [facility] Work Phone: 06-28-2022 07:52-0400 Heart rate 61 /min Dr. Saqib Juárez Work Phone: [facility] Work Phone: 06-28-2022 07:52-0400 Respiratory rate 16 /min Dr. Saqib Juárez Work Phone: [facility] Work Phone: 06-28-2022 07:52-0400 SaO2% (BldA) [Mass fraction] 96 % Dr. Saqib Juárez Work Phone: [facility] Work Phone: 06-28-2022 07:52-0400 Systolic blood pressure 146 mm[Hg] Dr. Saqib Juárez Work Phone: [facility] Work Phone: 06-15-2022 07:17-0400 Body weight 72.[address] Saqib Juárez Work Phone: [facility] Work Phone: 05-17-2022 06:13-0400 Body height 160.[address] Saqib Juárez Work Phone: [facility] Work Phone: 05-17-2022 06:13-0400 Body mass index (BMI) [Ratio] 28.5 kg/m2 Dr. Saqib Juárez Work Phone: [facility] Work Phone: 05-17-2022 06:13-0400 Body temperature 98.7 [degF] Dr. Saqib Juárez Work Phone: [facility] Work Phone: 05-17-2022 06:13-0400 Body weight 73.[address] Saqib Juárez Work Phone: [facility] Work Phone: 05-17-2022 06:13-0400 Diastolic blood pressure 70 mm[Hg] Dr. Saqib Juárez Work Phone: [facility] Work Phone: 05-17-2022 06:13-0400 Heart rate 58 /min Dr. Saqib Juárze Work Phone: [facility] Work Phone: 05-17-2022 06:13-0400 Respiratory rate 19 /min Dr. Saqib Juárez Work Phone: [facility] Work Phone: 05-17-2022 06:13-0400 SaO2% (BldA) [Mass fraction] 98 % Dr. Saqib Juárez Work Phone: [facility] Work Phone: 05-17-2022 06:13-0400 Systolic blood pressure 165 mm[Hg] Dr. Saqib Juárez Work Phone: [facility] Work Phone: 04-16-2022 11:32-0400 Body height 160.[address] Saqib Juárez Work Phone: [facility] Work Phone: 04-16-2022 11:32-0400 Body weight 72.[address] Saqib Juárez Work Phone: [facility] Work Phone: 04-16-2022 11:25-0400 Body mass index (BMI) [Ratio] 28.3 kg/m2 Dr. Saqib Juárez Work Phone: [facility] Work Phone: 04-16-2022 11:25-0400 Heart rate 68 /min Dr. Saqib Juárez Work Phone: [facility] Work Phone: 04-16-2022 11:25-0400 SaO2% (BldA) [Mass fraction] 97 % Dr. Saqib Juárez Work Phone: [facility] Work Phone: 03-16-2022 10:04-0400 Body height 160.[address] Saqib Juárez Work Phone: [facility] Work Phone: 03-16-2022 10:04-0400 Body mass index (BMI) [Ratio] 28.3 kg/m2 Dr. Saqib Juárez Work Phone: [facility] Work Phone: 03-16-2022 10:04-0400 Body weight 72.[address] Saqib Juárez Work Phone: [facility] Work Phone: 03-16-2022 10:04-0400 Diastolic blood pressure 64 mm[Hg] Dr. Saqib Juárez Work Phone: [facility] Work Phone: 03-16-2022 10:04-0400 Heart rate 59 /min Dr. Saqib Juárez Work Phone: [facility] Work Phone: 03-16-2022 10:04-0400 Respiratory rate 16 /min Dr. Saqib Juárez Work Phone: [facility] Work Phone: 03-16-2022 10:04-0400 Systolic blood pressure 116 mm[Hg] Dr. Saqib Juárez Work Phone: [facility] Work Phone: 03-08-2022 08:48-0400 Body mass index (BMI) [Ratio] 28.8 kg/m2 Dr. Saqib Juárez Work Phone: [facility] Work Phone: 03-08-2022 08:48-0400 Body temperature 98.1 [degF] Dr. Saqib Juárez Work Phone: [facility] Work Phone: 03-08-2022 08:48-0400 Body weight 73.[address] Saqib Juárez Work Phone: [facility] Work Phone: 03-08-2022 08:48-0400 Diastolic blood pressure 64 mm[Hg] Dr. Saqib Juárez Work Phone: [facility] Work Phone: 03-08-2022 08:48-0400 Heart rate 62 /min Dr. Saqib Juárez Work Phone: [facility] Work Phone: 03-08-2022 08:48-0400 Respiratory rate 20 /min Dr. Saqib Juárez Work Phone: [facility] Work Phone: 03-08-2022 08:48-0400 SaO2% (BldA) [Mass fraction] 94 % Dr. Saqib Juárez Work Phone: [facility] Work Phone: 03-08-2022 08:48-0400 Systolic blood pressure 129 mm[Hg] Dr. Saqib Juárez Work Phone: [facility] Work Phone: 03-03-2022 08:45-0400 Body temperature 97.8 [degF] Dr. Saqib Juárez Work Phone: [facility] Work Phone: 03-03-2022 08:45-0400 Diastolic blood pressure 58 mm[Hg] Dr. Saqib Juárez Work Phone: [facility] Work Phone: 03-03-2022 08:45-0400 Heart rate 72 /min Dr. Saqib Juárez Work Phone: [facility] Work Phone: 03-03-2022 08:45-0400 Respiratory rate 17 /min Dr. Saqib Juárez Work Phone: [facility] Work Phone: 03-03-2022 08:45-0400 SaO2% (BldA) [Mass fraction] 97 % Dr. Saqib Juárez Work Phone: [facility] Work Phone: 03-03-2022 08:45-0400 Systolic blood pressure 114 mm[Hg] Dr. Saqib Juárez Work Phone: [facility] Work Phone: 03-02-2022 09:33-0400 Body height 160.[address] Saqib Juárez Work Phone: [facility] Work Phone: 03-02-2022 09:33-0400 Body weight 72.[address] Saqib Juárez Work Phone: [facility] Work Phone: 03-01-2022 08:40-0400 Body mass index (BMI) [Ratio] 28.3 kg/m2 Dr. Saqib Juárez Work Phone: [facility] Work Phone: 02-22-2022 08:57-0400 Body mass index (BMI) [Ratio] 28.3 kg/m2 Dr. Saqib Juárez Work Phone: [facility] Work Phone: 02-22-2022 08:57-0400 Body weight 72.[address] Saiqb Juárez Work Phone: [facility] Work Phone: 02-22-2022 08:57-0400 Diastolic blood pressure 76 mm[Hg] Dr. Saqib Juárez Work Phone: [facility] Work Phone: 02-22-2022 08:57-0400 Heart rate 60 /min Dr. Saqib Juárez Work Phone: [facility] Work Phone: 02-22-2022 08:57-0400 Respiratory rate 16 /min Dr. Saqib Juárez Work Phone: [facility] Work Phone: 02-22-2022 08:57-0400 SaO2% (BldA) [Mass fraction] 98 % Dr. Saqib Juárez Work Phone: [facility] Work Phone: 02-22-2022 08:57-0400 Systolic blood pressure 121 mm[Hg] Dr. Saqib Juárez Work Phone: [facility] Work Phone: 02-22-2022 08:57-0400 Body mass index (BMI) [Ratio] 28.3 kg/m2 Dr. Saqib Juárez Work Phone: [facility] Work Phone: 02-22-2022 08:57-0400 Body weight 72.[address] Saqib Juárez Work Phone: [facility] Work Phone: 02-22-2022 08:57-0400 Diastolic blood pressure 76 mm[Hg] Dr. Saqib Juárez Work Phone: [facility] Work Phone: 02-22-2022 08:57-0400 Heart rate 60 /min Dr. Saqib Juárez Work Phone: [facility] Work Phone: 02-22-2022 08:57-0400 Respiratory rate 16 /min Dr. Saqib Juárez Work Phone: [facility] Work Phone: 02-22-2022 08:57-0400 SaO2% (BldA) [Mass fraction] 98 % Dr. Saqib Juárez Work Phone: [facility] Work Phone: 02-22-2022 08:57-0400 Systolic blood pressure 121 mm[Hg] Dr. Saqib Juárez Work Phone: [facility] Work Phone: 02-19-2022 15:12-0400 Body mass index (BMI) [Ratio] 28.3 kg/m2 Dr. Saqib Juárez Work Phone: [facility] Work Phone: 02-19-2022 15:12-0400 Body temperature 96.3 [degF] Dr. Saqib Juárez Work Phone: [facility] Work Phone: 02-19-2022 15:12-0400 Body weight 72.[address] Saqib Juárez Work Phone: [facility] Work Phone: 02-19-2022 15:12-0400 Diastolic blood pressure 68 mm[Hg] Dr. Saqib Juárez Work Phone: [facility] Work Phone: 02-19-2022 15:12-0400 Heart rate 72 /min Dr. Saqib Juárez Work Phone: [facility] Work Phone: 02-19-2022 15:12-0400 Respiratory rate 14 /min Dr. Saqib Juárez Work Phone: [facility] Work Phone: 02-19-2022 15:12-0400 SaO2% (BldA) [Mass fraction] 96 % Dr. Saqib Juárez Work Phone: [facility] Work Phone: 02-19-2022 15:12-0400 Systolic blood pressure 132 mm[Hg] Dr. Saqib Juárez Work Phone: [facility] Work Phone: 02-19-2022 15:12-0400 Body mass index (BMI) [Ratio] 28.3 kg/m2 Dr. Saqib Juárez Work Phone: [facility] Work Phone: 02-19-2022 15:12-0400 Body temperature 96.3 [degF] Dr. Saqib Juárez Work Phone: [facility] Work Phone: 02-19-2022 15:12-0400 Body weight 72.[address] Saqib Juárez Work Phone: [facility] Work Phone: 02-19-2022 15:12-0400 Diastolic blood pressure 68 mm[Hg] Dr. Saqib Juárez Work Phone: [facility] Work Phone: 02-19-2022 15:12-0400 Heart rate 72 /min Dr. Saqib Juárez Work Phone: [facility] Work Phone: 02-19-2022 15:12-0400 Respiratory rate 14 /min Dr. Saqib Juárez Work Phone: [facility] Work Phone: 02-19-2022 15:12-0400 SaO2% (BldA) [Mass fraction] 96 % Dr. Saqib Juárez Work Phone: [facility] Work Phone: 02-19-2022 15:12-0400 Systolic blood pressure 132 mm[Hg] Dr. Saqib Juárez Work Phone: [facility] Work Phone: 08-26-2017 09:38-0500 BMI (Body Mass Index) 25.92 kg/m2 [facility] Work Phone: 08-26-2017 09:38-0500 BP Diastolic 60 mm[Hg] [facility] Work Phone: 08-26-2017 09:38-0500 BP Systolic 124 mm[Hg] [facility] Work Phone: 08-26-2017 09:38-0500 Height 162.56 cm [facility] Work Phone: 08-26-2017 09:38-0500 Pulse (Heart Rate) 66 /min [facility] Work Phone: 08-26-2017 09:38-0500 Respiratory Rate 16 /min [facility] Work Phone: 08-26-2017 09:38-0500 Weight 68.49 kg [facility] Work Phone: 05-21-2017 15:38-0400 BMI (Body Mass Index) 25.4 kg/m2 Evelin Kulkarni RN [facility] Work Phone: 05-21-2017 15:38-0400 BP Diastolic 66 mm[Hg] Evelin Kulkarni RN [facility] Work Phone: 05-21-2017 15:38-0400 BP Systolic 120 mm[Hg] Evelin Kulkarni RN [facility] Work Phone: 05-21-2017 15:38-0400 Height 162.56 cm Evelin Kulkarni RN [facility] Work Phone: 05-21-2017 15:38-0400 Pulse (Heart Rate) 68 /min Evelin Kulkarni RN [facility] Work Phone: 05-21-2017 15:38-0400 Respiratory Rate 18 /min Evelin Kulkarni RN [facility] Work Phone: 05-21-2017 15:38-0400 Weight 67.13 kg Evelin Kulkarni RN [facility] Work Phone: 05-07-2017 12:53-0400 Body Temperature 99.2 [degF] Evelin Kulkarni RN [facility] Work Phone: Encounters Encounter Date Encounter Type Care Provider Facility Start: 06-21-2025 ambulatory Saqib Juárez Facility :[facility] Start: 06-16-2025 End: 06-16-2025 Patient encounter procedure Rosibel Suh RECREATION SUPERVISOR-C -[facility] Work Phone: Start: 06-16-2025 End: 06-16-[address] Saqib Juárez MD Work Phone: -[facility] Start: 04-29-2025 End: 04-29-[address] Saqib Juárez MD -[facility] Work Phone: Start: 04-29-2025 End: 04-29-[address] Saqib Juárez MD Work Phone: [facility] [place] Start: 03-26-2025 Non-patient / Non-visit Dr. Farrukh DOOLEY -[facility] Start: 03-26-2025 End: 03-26-[address] Saqib Juárez MD Work Phone: -[facility] Start: 03-26-2025 End: 03-26-[address] Yong Mora MD -[facility] Work Phone: Start: 03-26-2025 End: 03-26-2025 ambulatory Yong Mora Facility:[facility] Start: 03-23-2025 End: 03-23-[address] Yong Mora MD -[facility] Work Phone: Start: 03-23-2025 End: 03-23-[address] Saqib Juárez MD Work Phone: [facility] Work Phone: Start: 03-16-2025 End: 03-16-2025 Patient encounter procedure Rosibel AU -[facility] Work Phone: Start: 03-16-2025 End: 03-16-[address] Saqib Juárez MD Work Phone: [facility] Work Phone: Start: 01-22-2025 End: 01-22-2025 ambulatory Saqib Juárez Facility:[facility] Start: 01-22-2025 End: 01-22-[address] Saqib Juárez MD -Physical Therapy Work Phone: Start: 12-30-2024 End: 12-30-[address] Saqib Juárez MD -[facility] [place] Work Phone: Start: 12-30-2024 End: 12-30-2024 ambulatory Saqib Juárez Facility:[facility] Start: 12-04-2024 End: 12-04-[address] Saqib Juárez MD Work Phone: [facility] Work Phone: Start: 12-04-2024 End: 12-04-[address] Daniel Lim MD -Physical Therapy Work Phone: Start: 12-01-2024 End: 12-01-[address] Saqib Juárez MD -Laboratory, Specimen Work Phone: Start: 12-01-2024 End: 12-01-[address] Saqib Juárez MD Work Phone: [facility] Work Phone: Start: 12-01-2024 End: 12-01-2024 ambulatory Saqib Juárez Facility:[facility] Start: 08-31-2024 End: 08-31-2024 Patient encounter procedure Paul Goodman RECREATION SUPERVISOR-C -[facility] Work Phone: Start: 08-31-2024 End: 08-31-2024 Patient encounter status Paul Goodman RECREATION SUPERVISOR-C [facility] Start: 08-31-2024 End: 08-31-2024 ambulatory Paul Goodman RECREATION SUPERVISOR Facility:[facility] Start: 08-17-[address] Saqib Juárez MD Work Phone: [facility] Start: 08-17-2024 End: 08-17-[address] Saqib Juárez MD -[facility] Work Phone: Start: 08-17-2024 End: 08-17-[address] Saqib Juárez MD [facility] Start: 08-17-2024 End: 08-17-2024 ambulatory Saqib Meena Facility:[facility] Start: 07-13-2024 End: 07-13-2024 ambulatory Saqib Juárez Facility:[facility] Start: 03-17-[address] Saqib Juárez MD Work Phone: [facility] Comment on above: October 07, 2024 ri ght knee replacement Start: 02-06-2024 End: 02-06-[address] Saqib Juárez Work Phone: [facility] [place] Work Phone: Start: 02-03-2024 End: 02-03-[address] Saqib Juárez Work Phone: [facility] Work Phone: Start: 02-03-2024 End: 02-03-[address] Saqib Juárez Work Phone: [facility]Labor[facility] Work Phone: Start: 01-31-2024 End: 01-31-[address] Saqib Juárez Work Phone: [facility] Work Phone: Start: 01-31-2024 End: 01-31-[address] [facility] Start: 05-07-2023 Non-patient / Non-visit Dr. Leonela Juárez Work Phone: [facility] Start: 05-07-2023 End: 05-07-2023 Admission to same day surgery center Dr. Saqib Juárez Work Phone: [facility]End[facility] Work Phone: Start: 05-07-2023 End: 05-07-[address] Saqib Juárez Work Phone: [facility] Work Phone: Start: 04-04-2023 End: 04-04-[address] Saqib Juárez Work Phone: [facility] Work Phone: Start: 03-14-2023 End: 03-14-[address] [facility] Work Phone: Start: 03-12-2023 End: 03-12-[address] Saqib Juárez Work Phone: [facility] Work Phone: Start: 09-10-2022 End: 09-10-2022 Emergency department patient visit Dr. Saqib Juárez Work Phone: [facility]-Emergency Department Start: 09-07-2022 End: 09-07-[address] Saqib Juárez Work Phone: [facility] Start: 09-06-2022 End: 09-06-[address] [facility] Start: 07-26-2022 End: 07-26-[address] Saqib Juárez Work Phone: [facility] Start: 07-20-2022 End: 07-30-[address] Saqib Juárez Work Phone: [facility] Work Phone: Start: 07-20-2022 End: 07-30-[address] Saqib Juárez Work Phone: [facility]Cardiac Rehab Start: 07-10-2022 End: 07-10-[address] Saqib Juárez Work Phone: [facility] Work Phone: Start: 07-10-2022 End: 07-10-[address] Saqib Juárez Work Phone: [facility]-Sleep Lab Start: 07-06-[address] Saqib Juárez Work Phone: [facility]Card[facility] Start: 06-29-2022 End: 06-29-[address] Saqib Juárez Work Phone: [facility] Work Phone: Start: 06-29-2022 End: 06-29-[address] Saqib Juárez Work Phone: [facility]Card[facility] Start: 06-28-2022 End: 06-28-[address] [facility] Start: 05-23-2022 End: 05-30-[address] Saqib Juárez Work Phone: [facility] Work Phone: Start: 05-23-2022 End: 05-30-[address] Saqib Juárez Work Phone: [facility] Start: 05-17-2022 End: 05-17-[address] Saqib Juárez Work Phone: [facility] Start: 04-27-2022 End: 04-29-[address] Saqib Juárez Work Phone: [facility] Start: 04-17-2022 End: 04-17-[address] Saqib Juárez Work Phone: [facility]Sleep Lab Start: 04-16-2022 End: 04-16-[address] Saqib Juárez Work Phone: [facility] Start: 04-10-2022 Non-patient / Non-visit Dr. Leonela Juárez Work Phone: [facility] Start: 03-19-2022 End: 03-19-[address] Saqib Juárez Work Phone: [facility]Laboratory Start: 03-16-2022 End: 03-16-[address] Saqib Juárez Work Phone: [facility] Start: 03-08-2022 End: 03-08-[address] Saqib Juárez Work Phone: [facility] Start: 03-07-2022 End: 03-07-[address] Saqib Juárez Work Phone: [facility]Sleep Lab Start: 03-03-2022 Non-patient / Non-visit Dr. Leonela Juárez Work Phone: [facility] Start: 03-03-2022 Non-patient / Non-visit Dr. Leonela Juárez Work Phone: [facility] Start: 03-02-2022 End: 03-03-2022 Evaluation and management of inpatient Dr. Saqib Juárez Work Phone: [facility]-Progressive Care Unit Start: 02-22-2022 End: 02-22-[address] Saqib Juárez Work Phone: [facility] Start: 02-19-2022 End: 02-19-[address] Saqib Juárez Work Phone: [facility] Internal Medicine Procedures Date Procedure Procedure Detail Performing Clinician Start: 12-01-[address] Saqib Juárez MD Work Phone: Start: 05-07-[address] Saqib Juárez Work Phone: Start: 09-10-2022 X-ray of both feet Dr. Saqib Juárez Work Phone: Start: 03-02-2022 History of placement of stent for coronary artery disease History of coronary artery stent placement Dr. Saqib Juárez MD Comment on above: INA-MYK-Vafm LAD at D2 bifurcation w/ 3.5 x 18 mm [facility] [place] Stent and POBA-D2 03/02/22; Start: 02-22-2022 Plain chest X-ray Dr. Jose Juárez Work Phone: Start: 08-26-2017 End: 08-26-2017 SURINDER [...] Phone: Start: 05-21-2017 End: 05-22-2017 Referral to certified indoor environmentalist Wil Rivas MD Work Phone: Start: 05-07-2017 End: 05-14-2017 Chest x-ray Wil Rivas MD Work Phone: Start: 05-07-2017 End: 05-15-2017 SURINDER Rivas MD Work Phone: Start: 05-07-2017 End: 05-15-2017 Follow up Appt 3 weeks Wil Rivas MD Work Phone: Start: 05-07-2017 End: 05-08-2017 Referral to certified indoor environmentalist Wil Rivas MD Work Phone: Start: 05-06-2017 End: 05-15-2017 Echocardiography Wil Rivas MD Work Phone: Start: 05-01-2017 End: 05-01-2017 DJN Paul Goodman RECREATION SUPERVISOR Work Phone: Start: 05-01-2017 End: 05-01-2017 Echocardiography Paul Goodman RECREATION SUPERVISOR Work Phone: Plan of Treatment Date Care Activity Detail Author Start: 06-16-2025 [facility] Start: 12-30-2024 Patient referral [facility] Work Phone: Start: 08-31-2024 Patient referral [facility] Work Phone: Start: 08-17-2024 Patient referral [facility] Work Phone: Start: 02-06-2024 Patient referral [facility] Work Phone: Start: 05-07-2023 Patient discharge [facility] Start: 04-10-2022 Patient referral [facility] Work Phone: Start: 03-05-2022 Patient referral [facility] Work Phone: Start: 03-03-2022 Patient discharge [facility] Work Phone: Start: 03-02-2022 Admission procedure [facility] Work Phone: Start: 03-02-2022 Following clinical pathway protocol [facility] Work Phone: Start: 03-02-2022 Cardiac monitoring [facility] Work Phone: Start: 03-02-2022 Cardiac rehabilitation - phase 1 [facility] Work Phone: Start: 03-02-2022 Cardiac rehabilitation - phase 2 [facility] Work Phone: Start: 03-02-2022 Oxygen therapy [facility] Work Phone: Start: 03-02-2022 Patient discharge [facility] Work Phone: Start: 03-02-2022 Systemic arterial pressure monitoring [facility] Work Phone: Start: 03-02-2022 Vascular disease risk assessment [facility] Work Phone: Start: 03-02-[address] [facility] Work Phone: Start: 03-02-2022 End: 03-02-2022 [facility] Work Phone: Start: 03-02-2022 End: 03-02-2022 Notification of physician [facility] Work Phone: Start: 03-02-2022 Patient education [facility] Work Phone: Start: 03-02-2022 Pulse taking [facility] Work Phone: Start: 03-02-2022 End: 03-02-2022 Taking patient vital signs [facility] Work Phone: Start: 03-02-2022 Wound care [facility] Work Phone: Start: 03-02-2022 Admission procedure [facility] Work Phone: Start: 03-02-2022 Assessment of risk of venous thromboembolism [facility] Work Phone: Start: 03-02-2022 Insertion of catheter into peripheral vein [facility] Work Phone: Start: 03-02-2022 Measuring intake and output [facility] Work Phone: Start: 03-02-2022 Providing care according to standard [facility] Work Phone: Start: 03-02-2022 Inhalation therapy procedure [facility] Work Phone: Start: 02-19-2022 Patient referral [facility] Work Phone: Start: 10-03-2017 End: 10-03-2017 Appointment Appointment [facility] Work Phone: Start: 09-30-2017 End: 08-26-2017 *Hepatic Function Panel *Hepatic Function Panel [facility] Work Phone: Start: 09-30-2017 End: 08-26-2017 Lipid panel [AGGREGATE] *Lipid Profile CC PCP [facility] Work Phone: Start: 08-26-2017 End: 08-26-2017 SURINDER CADENA [facility] Work Phone: Start: 08-26-2017 End: 08-26-2017 Follow Up Appt 6 months Follow Up Appt 6 months [facility] Work Phone: Start: 08-26-2017 End: 08-26-2017 Appointment [facility] Work Phone: Start: 06-17-2017 End: 06-24-2017 *Hepatic Function Panel *Hepatic Function Panel [facility] Work Phone: Start: 06-17-2017 End: 06-24-2017 Lipid panel [AGGREGATE] *Lipid Profile CC PCP [facility] Work Phone: Start: 05-21-2017 End: 05-22-2017 *Hepatic Function Panel *Hepatic Function Panel [facility] Work Phone: Start: 05-21-2017 End: 05-22-2017 Cardiac Rehab Cardiac Rehab [address] [place], [address] [facility] Work Phone: Start: 05-21-2017 End: 05-21-2017 SURINDER CADENA [facility] Work Phone: Start: 05-21-2017 End: 05-21-2017 Follow Up Appt 3 months Follow Up Appt 3 months [facility] Work Phone: Start: 05-21-2017 End: 05-22-2017 Lipid panel [AGGREGATE] *Lipid Profile CC PCP [facility] Work Phone: Start: 05-07-2017 End: 05-07-2017 Cardiac Rehab Cardiac Rehab [address] [place], [address] [facility] Work Phone: Start: 05-07-2017 End: 05-14-2017 Chest x-ray X-Ray, Chest, PA & Lateral [facility] Work Phone: Start: 05-07-2017 End: 05-15-2017 SURINDER CADENA [facility] Work Phone: Start: 05-07-2017 End: 05-15-2017 Follow up Appt 3 weeks Follow up Appt 3 weeks [facility] Work Phone: Start: 05-06-2017 End: 05-06-2017 Echocardiography Echocardiogram (complete) [facility] Work Phone: Start: 05-01-2017 End: 05-01-2017 SURINDER CADENA [facility] Work Phone: Start: 05-01-2017 End: 05-01-2017 Follow Up Appt 6 months Follow Up Appt 6 months [facility] Work Phone: Catheterization of l eft heart [facility] Work Phone: Colonoscopy [facility] Lipid 1996 panel - S maury or Plasma [facility] Work Phone: Patient referral [facility] Work Phone: T4 free measurement [facility] Work Phone: Thyroid stimulating hormone measurement [facility] Work Phone: Immunizations Immunization Date Immunization Notes Care Provider [facility] 08-17-2024 Seasonal trivalent influenza vaccine, adjuvanted, preservative free Dr. Saqib Juárez MD Work Phone: [facility] 07-16-[address] Saqib Juárez Work Phone: [facility] Payers Date Payer Category Payer Self-pay [id number] 2021 Unknown [id number] 2009 Medicare [id number] banner [id number] Unknown [id number] [facility] [id number] Unknown [id number] 2.16.8 [id number] Unknown [id number] 2.16.8 [id number] Unknown [id number] 2.16.8 [id number] Unknown [id number] 2.16.8 [id number] Unknown [id number] 2.16.8 [id number] Unknown [id number] 2.16.8 [id number] Unknown [id number] 2.16.8 [id number] Unknown [id number] 2.16.8 [id number] Unknown [id number] 2.16.8 [id number] Unknown [id number] 2.16.8 [id number] Unknown [id number] 2.16.8 [id number] Unknown [id number] 2.16.8 [id number] Unknown [id number] 2.16.8 [id number] Unknown [id number] 2.16.8 [id number] Unknown [id number] 2.16.8 [id number] Social History Date Type Detail Facility Start: 03-01-2022 End: 09-02-2023 Tobacco smoking status COIS Unknown if ever smoked [facility] Start: 02-20-2021 Non-smoker [facility] Start: 1945 Sex Assigned At Female [facility] Start: 08-31-2024 Tobacco smoking status NHIS Ex-smoker (finding) [facility] Start: 12-07-2024 End: 12-15-2024 Sex Female (finding) [facility] Sex Female [facility] NEGATED: Highlighted row [facility] Medical Equipment Procedure Code Equipment Code Equipment Origin al Text Equipment Identifier Dates ([id number]) Drug-eluting coronary artery stent, bioabsorbable-polyme r-coated ()[id number] FDA Start: 03-02-2022 Goals Date Patient Goal Desired Activity /State Functional Status Date Assessment Result Facility 03-03-2022 Functional status Activity Abili ty Unable to Assess [facility] Work Phone: Mental Status Date Assessment Result Facility 05-07-2023 Cognitive function Voice/Name [facility] Work Phone: 03-03-2022 Cognitive function Appropriate;Cooperativ e [facility] Work Phone: Clinical Notes 04-08-2017 to 04-29-2025 Note Date & Type Note Facility 04-29-2025 Progress note [facility] 04-29-2025 Progress note Note Date/Time April 29, 2025 12:13pm [facility] [address] [place] [address]. [address] [place] [address] OFFICE VISIT Date of Service: 04/29/25 MR#: [id number] Acct: [id number] Name: KARYN MULLER Rep #: [id number] : 1945 Provider: Dr. Shilpa Juárez MD Age/Sex: 79/F Location: [facility]MS.IMB Status: Signed Intake Vital Signs 03/23/25 14:28 04/29/25 11:43 Height 5 ft 3 in 5 ft 3 in Weight: 168 lb 168 lb 4 oz BMI 29.7 29.7 BP 147/78 H 147/63 H Blood Pressure Location Lt brachial Lt brachial Position Sitting Sitting Respiration 18 16 Pulse 58 L 77 Pulse Source Monitor Monitor Temp 99.3 F H Temp Source Temporal Pulse Oximetry (%) 94 Oxygen Delivery Method room air Intake Visit Reasons: Cough, Congestion Chief Complaint: Cough, Congestion [employer] Required: No Accompanied by: Self Is patient in pain?: Yes (Bilateral ribs ) Pain scale (1-10): 8 Allergies meloxicam Adverse Reaction (Verified 04/29/25 11:38) Nausea methotrexate Adverse Reaction (Verified 04/29/25 11:38) Nausea NSAIDS (Non-Steroidal Anti-Inflamma Adverse Reaction (Verified 04/29/25 11:38) Nausea Sulfa (Sulfonamide Antibiotics) Adverse Reaction (Verified 04/29/25 11:38) Nausea Medications ?Medication ?Instructions ?Recorded ?Confirmed ?Type cyanocobalamin (vitamin B-12) 1,000 mcg PO DAILY SUPPL EMENT 02/06/17 04/29/25 History 1,000 mcg tablet aspirin 81 mg tablet,delayed 81 mg PO QDAY heart healt h 10/02/17 04/29/25 History release (Adult Low Dose Aspirin) calcium 600 mg (as carbonate)-vit 1 tab PO QDAY vitami n 10/02/17 04/29/25 History D3 10 mcg (400 unit)-minerals tablet multivitamin 1 tab PO DAILY vitamin 02/0204/29/25 History acetaminophen 650 mg 1,300 mg PO Q12H arthritis 0 02/22/22 04/29/25 History tablet,extended release albuterol sulfate 90 mcg/actuation 2 puff inhalation Q 4H PRN 05/17/22 04/29/25 Rx aerosol inhaler shortness of breath or wheez ing #8.5 grams flaxseed oil 1,000 mg capsule 1,000 mg PO DAILY 04/29/25 History trazodone 100 mg tablet 50 mg (1/2 x 100 mg) PO QHS PRN 06/15/24 04/29/25 Rx insomnia #90 tabs ferrous sulfate 325 mg (65 mg 325 mg PO QDAY 08/31/24 04/29/25 History iron) tablet pravastatin 40 mg tablet See Rx Instructions .Route 0 11/05/24 04/29/25 Rx .COMPLEX #90 tabs ascorbic acid (vitamin C) 1,000 mg 1 g PO QDAY vitamin 12/30/24 04/29/25 History tablet metoprolol succinate 50 mg 50 mg PO QHS BLOOD PRESSURE #90 02/23/25 04/29/25 Rx tablet,extended release 24 hr tabs fluticasone furoate 200 1 inh inhalation DAILY #3 ea 03/16/25 04/29/25 Rx mcg-vilanterol 25 mcg/dose inhalation powder (Breo Ellipta) losartan 50 mg-hydrochlorothiazide 1 tab PO BID #180 t abs 03/23/25 04/29/25 Rx 12.5 mg tablet azithromycin 500 mg tablet 500 mg PO QDAY 5 days #5 ta bs 04/29/25 04/29/25 Rx codeine 10 mg-guaifenesin 100 mg/5 5 ml PO Q4-6H PRN c ough #120 mL 04/29/25 04/29/25 Rx mL oral liquid prednisone 10 mg tablet 10 mg PO DIRECTED #21 tab s 04/29/25 04/29/25 Rx Have you fallen in the past year?: No PFSH Medical History (Updated 04/29/25 @ 12:[address] Saqib Juárez MD) Asthmatic bronchitis Left hip pain Pruritus Preop exam for internal medicine Wears hearing aid Wears glasses Alcohol use Low iron Restless legs Heartburn CPAP (continuous positive airway pressure) dependence Former smoker Shortness of breath on exertion Cardiology follow-up encounter History of stress test History of echocardiogram Sleep apnea Bereavement due to life event Bereavement counseling Generalized OA Diverticulitis Atherosclerotic heart disease [place] coronary artery w/angina pectoris Nonrheumatic aortic (valve) stenosis Essential (primary) hypertension COVID-19 (08/31/20) Psoriatic arthritis Hyperlipidemia Surgical History Hx of total knee replacement (~10/13/24) History of cardiac catheterization History of colonoscopy History of coronary artery stent placement (03/02/22) History of left heart catheterization (03/14/17) History of shoulder surgery History of partial colectomy (~2011) H/O aortic valve replacement (04/08/17) Family History [...] of servings: 2 HPI HPI Chief Complaint: Cough, Congestion Details: KARYN MULLER, is a 79 F who presents to the office today for an acute care follow-up visit. 79-year-old female has a history of asthma, on Breo Ellipta 200-25 mcg 1 elation daily. She does have as needed albuterol but has not had to use it recently. She developed URI symptoms while in [place] last week. Worsened on the way home. Has some mild shortness of breath, some wheezing, sore throat,chest nasal congestion, drainage. Minimal sputum but some. No high-grade fevers or shaking chills but low-grade temp here in the office. Fatigue, low energy. No chest pain or tightness. Is underlying history as well of CAD, status post stent in 2021, history of aortic valve replacement stable. Essential hypertension. Stable. Review of systems per chart. Physical exam. Room air pulse ox 94% vital signs on chart. Nontoxic-appearing. Speaking full sentences. Fair amount of coughing during exam. PERRLA. Scleraare clear. Bilateral hearing appliances. TMs are unremarkable with normal light reflexes. Canals are unremarkable. Posterior pharynx is unremarkable. Good dentition. No cervical or supraclavicular lymph nodes enlarged or tender. No clear thyromegaly. No thyroid nodules readily palpable. Lungs are without rhonchi or rales, bilateral wheezes, scattered throughout. Overall pretty good air exchange. No E/A changes are heard. Heart is regular. Not tachycardic. No clear rub or gallop is identified. 1?2/6 systolic ejection murmur right upper sternal border. The abdomen is soft. Bowel sounds are present. Nontender nondistended abdomen. ROS Const Constitutional: Positive for fatigue, fever(s) and headache(s); No body ache, chills, excessive sweating, frequent falls, snoring, weakness or change in appetite Eyes Eyes: Positive for eye pain; No blurry vision, change in vision or Light sensitivity ENT ENT: Positive for nasal congestion, headache(s) and sore throat; No abnormal hearing, ear or mastoid pain, tinnitus or neck pain Resp Respiratory: Positive for cough, chest congestion and shortness of breath; No snoring or wheezing Cardio Cardiology: No chest pain at rest, chest pain with exertion, excessive sweating,dyspnea on exertion, lightheadedness, orthopnea or palpitations Gastro GI: No abdominal pain, change in bowel habits, constipation, cramping, diarrhea,nausea/dyspepsia or vomiting Genitourinary-Female: No burning urination, painful urination, urinary incontinence or urinary frequency Musc Musculoskeletal: No abnormal gait, joint pain, back pain, limited range of motion, muscle weakness, neck pain or numbness Skin Skin: No dry skin, redness, lesions, itchy eyes, rash or wounds Neuro Neurology: Positive for headache(s); No abnormal gait, abnormal hearing, weakness, frequent falls, memory loss or numbness Psych Psychiatric: No anxiety, No change in appetite, No depression, No memory loss and No Thoughts of harming yourself/Others Endo Endocrine: Positive for fatigue; No cold intolerance, excessive sweating, flushing, heat intolerance, increased thirst/drinking or increased hunger Aller/Imm Allergy/Immunologic: No itchy eyes, seasonal allergy symptoms, hives or wheezing Casey/Lymp Hematologic/Lymphatic: No easy bleeding or easy bruising Coding Level of Care Code Off vis,est,level 3 Diagnoses Moderate persistent asthma without complication J45.40 Asthma severity: moderate Asthma persistence: persistent Asthma complication type: uncomplicated Asthmatic bronchitis J45.909 Atherosclerosis of [place] coronary artery of [place] heart with angina pectoris I25.119 [place] vs. transplanted heart: [place] heart History of coronary artery stent placement Z95.5 H/O aortic valve replacement Z95.2 Time Spent (min) 30 Assessment and Plan Assessment and Plan (1) Asthma: Status: Chronic Qualifiers: Asthma severity: moderate Asthma persistence: persistent Asthma complication type: uncomplicated Qualified Code(s): J45.40 - Moderate persistent asthma, uncomplicated Comment: Breo (2) Asthmatic bronchitis: Status: Acute (3) Atherosclerotic heart disease [place] coronary artery w/angina pectoris: Status: Acute Qualifiers: [place] vs. transplanted heart: [place] heart Qualified Code(s): I25.119 - Atherosclerotic heart disease of [place] coronary artery with unspecified angina pectoris Comment: [id number] LAD at D2 bifurcation w/ 3.5 x 18 mm Orsiro [place] Stent and POBA-D2 03/02/22; (4) History of coronary artery stent placement: Status: Acute Comment: [id number] LAD at D2 bifurcation w/ 3.5 x 18 mm Orsiro [place] Stent and POBA-D2 03/02/22; (5) H/O aortic valve replacement: Status: Chronic Comment: # 21 Trifecta Valve @ [facility] [address] [place] Medications: New azithromycin 500 mg PO QDAY 5 tabs 0RF 5 days prednisone Take 4 tabs (40 mg) daily for 3 days, then 2 tabs (20 mg) daily for 3 days then 1 tab (10 mg daily) for 3 days then stop. 10 mg PO DIRECTED 21 tabs 0RF codeine-guaifenesin 10-100 mg/5 mL 5 mL PO Q4-6H PRN 120 mL 0RF cough Plan Details Additional Comments: Patient presented as above, acute URI, history of asthma. This is turning more into an asthmatic bronchitis picture. Zithromax, 500 mg p.o. daily x 5 days, prednisone taper as directed. Codeine with guaifenesin cough syrup as needed for cough, watching for signs of sedation. Keep well-hydrated. She would update in a couple of days on how she is doing, sooner if worsening. I do not think chest x-ray is going to be of any help right now I do not believe. She isin agreement with plan. Overall 30-minute visit. Clinical Quality Measures Falls Risk Screening/Assistive Devices Have you fallen in the past year?: No 04/29/25 1213 <Electronically signed by Saqib webster MD> Date _ Saqib Juárez MD Cosign Signature: Date (if applicable) CC: ~ [facility] Work Phone: [phone] Evaluation note* Diagnosis Onset Date Resolution Status Admit Date Asthma chronic March 16 3:17pm JOSE (obstructive sleep apnea) chronic March 16, 2025 3:17pm Overweight chronic March 16 3:17pm Atherosclerotic heart disease [place] coronary artery w/angina pectoris acute March 232024 2:25pm Essential (primary) hypertension chronic March 23, 2025 2:25pm H/O aortic valve replacement April 08, 2017 ch ronic March 23, 2025 2:25pm Hyperlipidemia chronic March 23, 2025 2:25pm Asthmatic bronchitis acute April 29, 2025 11:38am Atherosclerotic heart disease [place] coronary artery w/angina pectoris acute April 292024 11:38am History of coronary artery stent placement March 02, 2022 acute April 29, 2025 11:38am Asthma chronic April 29 11:38am H/O aortic valve replacement April 08, 2017 ch ronic April 29, 2025 11:38am Asthma chronic May 3:17pm JOSE (obstructive sleep apnea) chronic June 16, 2025 3:17pm Overweight chronic May 3:17pm [facility] Work Phone: 1(957) 857-370704-02-2025 Evaluation note* Diagnosis Onset Date Resolution Status Admit Date Left hip pain noneactive December 30, 2024 9:35am [facility] Work Phone: 1(534) 493-614904-02-2025 Evaluation note* Diagnosis Onset Date Resolution Status Admit Date Left hip pain noneactive December 30, 2024 9:35am Asthma chronic March 16 3:17pm JOSE (obstructive sleep apnea) chroni c March 16, 2025 3:17pm Overweight chronic March 16 3:17pm [facility] Work Phone: 1(998) 710-847304-02-2025 Evaluation note* Diagnosis Onset Date Resolution Status Admit Date Left hip pain noneactive December 30, 2024 9:35am Asthma chronic March 16 3:17pm JOSE (obstructive sleep apnea) chroni c March 16, 2025 3:17pm Overweight chronic March 16 3:17pm Atherosclerotic heart diseas e [place] coronary artery w/angina pectoris acute March 23 2:25pm Essential (primary) hypertension chronic March 23, 2025 2:25pm H/O aortic valve replacement April 08, 2017 ch ronic March 23, 2025 2:25pm Hyperlipidemia chronic March 23, 2025 2:25pm [facility] Work Phone: 1(397) 849-313404-02-2025 Evaluation note* Diagnosis Onset Date Resolution Status Admit Date Left hip pain noneactive December 30, 2024 9:35am Asthma chronic March 16 3:17pm JOSE (obstructive sleep apnea) chroni c March 16, 2025 3:17pm Overweight chronic March 16 3:17pm Atherosclerotic heart diseas e [place] coronary artery w/angina pectoris acute March 23 2:25pm Essential (primary) hypertension chronic March 23, 2025 2:25pm H/O aortic valve replacement April 08, 2017 ch ronic March 23, 2025 2:25pm Hyperlipidemia chronic March 23, 2025 2:25pm Asthmatic bronchitis acute April 29, 2025 11:38am Atherosclerotic heart diseas e [place] coronary artery w/angina pectoris acute April 29 11:38am History of coronary artery stent placement March 02, 2022 acute April 29, 2025 11:38am Asthma chronic April 29 11:38am H/O aortic valve replacement April 08, 2017 ch ronic April 29, 2025 11:38am [facility] Work Phone: 1(879) 896-906203-07-2025 Discharge summary Author Sonu Mast [facility] Note Date/Time December 04, 2024 6:00 pm [facility] Physical Therapy [facility] [address] [place] [address]. [address] [place] [address] / REHABILITATION SERVICES DISCHARGE SUMMARY MR#: [id number] Acct: [id number] Name: KARYN MULLER Rep #: [id number] : 1945 79 From: Sonu Mast PT, ATC Referring Dr.: Dr. Daniel Lim MD Status: REG RCR Insurance: MEDICARE PART A B [employer] [place] Discharge Summary D/C summary: It has been [...] please feel free to call me at [phone]. Thank you for the referral of thispatient. Sincerely, Sonu Mast, PT, ATC Balance/Gait/Functional tests Balance/Special Test Scores Lower Extremity Functional Score: 27 WOMAC Total Score: 20 WOMAC Percentage: 79.1700 Improvement % Improvement: 90 <Electronically signed by Sonu Mast PT, ATC> 12/04/24 1233 CC: Dr. Daniel Lim MD; Dr. Saqib Juárez MD ~ [facility] Signed [facility] Work Phone: 1(845) 733-381003-07-2025 Discharge summary [facility] Physical Therapy [address] [place] [address] / REHABILITATION SERVICES DISCHARGE SUMMARY MR#: [id number] Acct: [id number] Name: KARYN MULLER Rep #: [id number] : 1945 79 From: Sonu Mast PT, ATC Referring Dr.: Dr. Daniel Lim MD Status: REG RCR Insurance: MEDICARE PART A B [facility] Discharge Summary D/C summary: It has been [...] please feel free to call me at [phone]. Thank you for the referral of thispatient. Sincerely, Sonu Mast, PT, ATC Balance/Gait/Functional tests Balance/Special Test Scores Lower Extremity Functional Score: 27 WOMAC Total Score: 20 WOMAC Percentage: 79.1700 Improvement % Improvement: 90 12/04/24 1233 CC: Dr. Daniel Lim MD; Dr. Saqib Juárez MD ~ [facility] Signed [facility]08-08-2023 History and physical note Author Bill Salas [facility] May 07, 2023 7:46am Note Date/Time May 07, 2023 7:4 6am [facility] Medical Records Department [address] [place] [address] History & Physical Exam 05/07/23 0746 MR#: [id number] Acct: [id number] Name: KARYN MULLER Rep #:[id number] : 1945 77 From: Bill Salas MD PCP: Dr. Saqib Juárez MD Status:[facility] Location: [place] [address] History and Physical Date of Admission: 05/07/23 [...] Low Dose Aspirin) 81 mg PO QDAY [facility] 10/02/17 [History Confirmed 04/04/23] calcium carb-vit [...] 04/04/23] PFSH Medical History Atherosclerotic heart disease [place] coronary artery w/angina pectoris Bereavement counseling Bereavement [...] diagonal. By report while she was in [place] she was seen at the [facility] extension. She had an echocardiogram showing ejection [...] [place] and she is also been in [place]. She did a significant mount of walking [...] and no acute distress Nutritional Appearance: overweight HENMT Head: normal to inspection Eyes General: appearance [...] she stop her Brilinta for 7 days ROE Moore. As this is a colonoscopy we will [...] assisting with her surgical care Copy: Dr. Saqib Salas M.D., LashaS. I have examined the patient and the H&P has been reviewed. There are no clinicalchanges since date of exam. Bill Salas M.D., Linda.Faraz.C.S. 05/07/23 0746 <Electronically signed by Bill Salas MD> Cosigner Signature (if applicable): CC: Dr. Saqib Juárez MD; Dr. Bill Salas MD~ Signed [facility] Work Phone: 1(803) 651-775208-08-2023 Procedure [facility] 05-07-2023 Procedure [facility]07-10-2023 Evaluation note* Diagnosis Onset Date Resolution Status Atherosclerotic heart diseas e [place] coronary artery w/angina pectoris acute Dyspnea on exertion acute Palpitations acute Essential (primary) hypertension chronic H/O aortic valve replacement April 08, 2017 chronic Hyperlipidemia chronic Asthma acute JOSE (obstructive sleep apnea) chronic Personal history of colonic polyps acute [facility] Work Phone: 1(866) 471-191506-03-2022 Evaluation note* Diagnosis Onset Date Resolution Status History of coronary artery stent placement March 02 acute Essential (primary) hypertension chronic H/O aortic valve replacement April 08, 2017 chronic History of coronary artery stent placement March 02 acute Screening for intestinal cancer acute Atherosclerotic heart diseas e [place] coronary artery w/angina pectoris acute Dyspnea on exertion acute History of coronary artery stent placement March 02 acute Essential (primary) hypertension chronic H/O aortic valve replacement April 08, 2017 chronic Hyperlipidemia chronic Asthma acute JOSE (obstructive sleep apnea) acute Asthma acute JOSE (obstructive sleep apnea) acute [facility] Work Phone: 1(496) 949-204406-03-2022 Evaluation note* Diagnosis Onset Date Resolution Status Atherosclerotic heart diseas e [place] coronary artery w/angina pectoris acute Dyspnea on exertion acute History of coronary artery stent placement March 02 acute Essential (primary) hypertension chronic H/O aortic valve replacement April 08, 2017 chronic Hyperlipidemia chronic Asthma acute JOSE (obstructive sleep apnea) acute Asthma acute JOSE (obstructive sleep apnea) acute [facility] Work Phone: 1([phone]) 592-542006-03-2022 Evaluation note* Diagnosis Onset Date Resolution Status Admit Date History of coronary artery stent placement March 02, 2022 acute August 17 1:48pm Preop exam for internal medicine acute August 17 1:48pm Pruritus acute August 17, 2024 1:48pm Sleep apnea acute July 1:48pm Essential (primary) hypertension chronic August 17 1:48pm H/O aortic valve replacement April 08, 2017 ch ronic August 17, 2024 1:48pm Hyperlipidemia chronic July 312023 1:48pm Nonrheumatic aortic (valve) stenosis chronic August 17 1:48pm JOSE (obstructive sleep apnea) chroni c August 17, 2024 1:48pm Atherosclerotic heart diseas e [place] coronary artery w/angina pectoris acute August 31, 2024 11:08am Preop cardiovascular exam acute August 31, 2024 11:08am Essential (primary) hypertension chronic August 31 11:08am H/O aortic valve replacement April 08, 2017 ch ronic August 31, 2024 11:08am Hyperlipidemia chronic August 312023 11:08am [facility] Work Phone: 1([phone]) 896-602612-13-2021 NoteHNO ID: [id number] Author: Ivett Kong Population Health Navigator Service: [...] future healthcare decisions with a power of insurance attorney, living will, or advance directives? NO Referrals: N/A Message Sent to Practice: NO Navigation Signature: Ivett Kong Population Health Navigator September 11, 2021 1:23 [facility]12-13-2021 NotePatient Outreach (NETNAV) KARYN MULLER ([id number]) 1945 F Date Time Provider Department 09/11/21 IVETT KONG During your visit today, we recorded the following information about you: Ivett Kong Population Health Navigator 09/11/2021 1:26 PM Signed POPULATION HEALTH NAVIGATION OUTREACH Action/ I sent patient a my chart message [...] future healthcare decisions with a power of insurance attorney, living will, or advance directives? NO [...] *09/12/2017 COVID-19 [U07.1] 09/02/2020 Encounter Status:Closed by LUANN LOPEZ (more content not included)...[place] [address]-10-2017 Evaluation note* Diagnosis Onset Date Resolution Status Dyspnea on exertion acute Sleep apnea acute Essential (primary) hypertension chronic H/O aortic valve replacement April 08, 2017 chronic Hyperlipidemia chronic Atherosclerotic heart diseas e [place] coronary artery w/angina pectoris acute Dyspnea on exertion acute Essential (primary) hypertension chronic H/O aortic valve replacement April 08, 2017 [facility] Work Phone: 1(376) 277-440107-10-2017 Evaluation note* Diagnosis Onset Date Resolution Status Dyspnea on exertion acute Sleep apnea acute Essential (primary) hypertension chronic H/O aortic valve replacement April 08, 2017 chronic Hyperlipidemia chronic Atherosclerotic heart diseas e [place] coronary artery w/angina pectoris acute Dyspnea on exertion acute Essential (primary) hypertension chronic H/O aortic valve replacement April 08, 2017 chronic History of coronary artery stent placement March 02 acute Essential (primary) hypertension chronic H/O aortic valve replacement April 08, 2017 [facility] Work Phone: 1([phone]) 985-121707-10-2017 Evaluation note* Diagnosis Onset Date Resolution Status Dyspnea on exertion acute Sleep apnea acute Essential (primary) hypertension chronic H/O aortic valve replacement April 08, 2017 chronic Hyperlipidemia chronic Atherosclerotic heart diseas e [place] coronary artery w/angina pectoris acute Dyspnea on exertion acute Essential (primary) hypertension chronic H/O aortic valve replacement April 08, 2017 chronic History of coronary artery stent placement March 02 acute Essential (primary) hypertension chronic H/O aortic valve replacement April 08, 2017 chronic History of coronary artery stent placement March 02 acute Screening for intestinal cancer acute Atherosclerotic heart diseas e [place] coronary artery w/angina pectoris acute Dyspnea on exertion acute History of coronary artery stent placement March 02 acute Essential (primary) hypertension chronic H/O aortic valve replacement April 08, 2017 chronic Hyperlipidemia [facility] Work Phone: 1([phone]) 281-785807-10-2017 Evaluation note* Diagnosis Onset Date Resolution Status Dyspnea on exertion acute Sleep apnea acute Essential (primary) hypertension chronic H/O aortic valve replacement April 08, 2017 chronic Hyperlipidemia chronic Atherosclerotic heart diseas e [place] coronary artery w/angina pectoris acute Dyspnea on exertion acute Essential (primary) hypertension chronic H/O aortic valve replacement April 08, 2017 chronic History of coronary artery stent placement March 02 acute Essential (primary) hypertension chronic H/O aortic valve replacement April 08, 2017 chronic History of coronary artery stent placement March 02 acute Screening for intestinal cancer acute Atherosclerotic heart diseas e [place] coronary artery w/angina pectoris acute Dyspnea on exertion acute History of coronary artery stent placement March 02 acute Essential (primary) hypertension chronic H/O aortic valve replacement April 08, 2017 chronic Hyperlipidemia chronic Asthma acute JOSE (obstructive sleep apnea) acute [facility] Work Phone: Evaluation note* Diagnosis Onset Date Resolution Status Asthma acute JOSE (obstructive sleep apnea) acute Asthma acute JOSE (obstructive sleep apnea) acute Atherosclerotic heart diseas e [place] coronary artery w/angina pectoris acute Chronic GERD chronic Essential (primary) hypertension chronic H/O aortic valve replacement April 08, 2017 chronic Hyperlipidemia [facility] Work Phone: Evaluation note* Diagnosis Onset Date Resolution Status Asthma acute JOSE (obstructive sleep apnea) chronic Asthma acute JOSE (obstructive sleep apnea) chronic Atherosclerotic heart diseas e [place] coronary artery w/angina pectoris acute Chronic GERD chronic Essential (primary) hypertension chronic H/O aortic valve replacement April 08, 2017 chronic Hyperlipidemia chronic Asthma acute JOSE (obstructive sleep apnea) chronic Atherosclerotic heart diseas e [place] coronary artery w/angina pectoris acute History of coronary artery stent placement March 02 acute Essential (primary) hypertension chronic Fatigue chronic H/O aortic valve replacement April 08, 2017 chronic Hyperlipidemia chronic [facility] Work Phone: Evaluation note* Diagnosis Onset Date Resolution Status Atherosclerotic heart diseas e [place] coronary artery w/angina pectoris acute Right knee DJD acute Right knee pain acute Essential (primary) hypertension chronic H/O aortic valve replacement April 08, 2017 chronic Hyperlipidemia chronic JOSE (obstructive sleep apnea) [facility] Work Phone: [facility] Work Phone: [facility] Work Phone: [phone] Work Phone: [facility] Work Phone[facility] Work Phone: Hospital Discharge instructionsAmbulatory Orders* Orthopedics Location: None Selected [facility] Work Phone: Reason for referral (narrative)No reason for referral information [facility]Val[facility] Work Phone: Summary Purpose Family History No Family History Records Found Relationship Condition Age at Onset Recorded Date/T amber brother Cardiac disease Unknown Coronary artery disease Unknown Advance Directives No Advanced Directives Records Found Advance Directive Response Recorded Date/ Time Advance Directives No March 01 8:47am Living Will No March 01, 2022 8 :47am Power of Dry Kiln Operator No March 01, 2022 8:47am Advance Directive Response Recorded Date/ Time Advance Directives Yes March 02 9:33am Living Will Yes March 02, 2022 9 :33am Power of Dry Kiln Operator Yes March 02, 2022 9:33am Advance Directive Response Recorded Date/ Time Advance Directives on File Yes March 02, 2022 9:33am Name of Medical Power of Dry Kiln Operator ashlee abbott March 02, 2022 9:33am Advance Directives Yes March 02 9:33am Living Will Yes March 02, 2022 9 :33am Power of Dry Kiln Operator Yes March 02, 2022 9:33am Advance Directive Response Recorded Date/ Time Advance Directives on File Yes March 02, 2022 9:33am Name of Medical Power of Dry Kiln Operator ashlee abbott March 02, 2022 9:33am Advance Directives on File Yes April 16, 2022 11:25am Advance Directives Yes March 02 9:33am Living Will Yes April 16, 2022 11:25am Power of Dry Kiln Operator Yes April 16 11:25am Advance Directive Response Recorded Date/ Time Advance Directives on File Yes April 16, 2022 11:25am Advance Directives Yes March 02 9:33am Living Will Yes April 16, 2022 11:25am Power of Dry Kiln Operator Yes April 16 11:25am Advance Directive Response Recorded Date/ Time Advance Directives Yes September 07, 2022 4:12pm Living Will No September 10 12:17pm Power of Dry Kiln Operator No September 10, 2022 12:17pm Advance Directive Response Recorded Date/ Time Advance Directives Yes September 07, 2022 5:12pm Living Will Yes May 03, 2023 3:42pm Power of Dry Kiln Operator No May 03 3:42pm Advance Directive Response Recorded Date/ Time Living Will Yes May 03, 2023 3:42pm Power of Dry Kiln Operator No May 03 3:42pm Advance Directives Yes May 01 9:54am Advance Directive Response Recorded Date/ Time Living Will Yes May 03, 2023 3:42pm Do you have a Healthcare Power of Dry Kiln Operator? No May 03, 2023 3:42pm Advance Directives Yes May 01 9:54am Chief Complaint and Reason for Visit Chief Complaint 8 month f/u 6 M FU/PER PCP CHEST PAIN Reason for Visit Dyspnea on exertion Sleep apnea Essential (primary) hypertension H/O aortic valve replacement Hyperlipidemia Atherosclerotic heart disease [place] coronary artery w/angina pectoris Dyspnea on exertion Essential (primary) hypertension H/O aortic valve replacement Chief Complaint 8 month f/u 6 M FU/PER PCP CHEST PAIN RIOS CAD RIOS CAD Reason for Visit Dyspnea on exertion Sleep apnea Essential (primary) hypertension H/O aortic valve replacement Hyperlipidemia Atherosclerotic heart disease [place] coronary artery w/angina pectoris Dyspnea on exertion Essential (primary) hypertension H/O aortic valve replacement History of coronary artery stent placement Essential (primary) hypertension H/O aortic valve replacement Chief Complaint 8 month f/u 6 M FU/PER PCP CHEST PAIN RIOS CAD RIOS CAD RIOS CAD SLEEP APNEA 3 Y FOLLOW UP COLON RESECTION/CSCOPE F/U from [facility] Reason for Visit Dyspnea on exertion Sleep apnea Essential (primary) hypertension H/O aortic valve replacement Hyperlipidemia Atherosclerotic heart disease [place] coronary artery w/angina pectoris Dyspnea on exertion Essential (primary) hypertension H/O aortic valve replacement History of coronary artery stent placement Essential (primary) hypertension H/O aortic valve replacement History of coronary artery stent placement Screening for intestinal cancer Atherosclerotic heart disease [place] coronary artery w/angina pectoris Dyspnea on exertion History of coronary artery stent placement Essential (primary) hypertension H/O aortic valve replacement Hyperlipidemia Chief Complaint 8 month f/u 6 M FU/PER PCP CHEST PAIN RIOS CAD RIOS CAD RIOS CAD SLEEP APNEA 3 Y FOLLOW UP COLON RESECTION/CSCOPE F/U from [facility] PCI w/coronary stenting SLEEP APNEA Reason for Visit Dyspnea on exertion Sleep apnea Essential (primary) hypertension H/O aortic valve replacement Hyperlipidemia Atherosclerotic heart disease [place] coronary artery w/angina pectoris Dyspnea on exertion Essential (primary) hypertension H/O aortic valve replacement History of coronary artery stent placement Essential (primary) hypertension H/O aortic valve replacement History of coronary artery stent placement Screening for intestinal cancer Atherosclerotic heart disease [place] coronary artery w/angina pectoris Dyspnea on exertion [...] aortic valve replacement Hyperlipidemia Atherosclerotic heart disease [place] coronary artery w/angina pectoris Dyspnea on exertion Essential (primary) hypertension H/O aortic valve replacement History of coronary artery stent placement Essential (primary) hypertension H/O aortic valve replacement History of coronary artery stent placement Screening for intestinal cancer Atherosclerotic heart disease [place] coronary artery w/angina pectoris Dyspnea on exertion [...] aortic valve replacement Hyperlipidemia Atherosclerotic heart disease [place] coronary artery w/angina pectoris Dyspnea on exertion Essential (primary) hypertension H/O aortic valve replacement History of coronary artery stent placement Essential (primary) hypertension H/O aortic valve replacement History of coronary artery stent placement Screening for intestinal cancer Atherosclerotic heart disease [place] coronary artery w/angina pectoris Dyspnea on exertion [...] Screening for intestinal cancer Atherosclerotic heart disease [place] coronary artery w/angina pectoris Dyspnea on exertion History of coronary artery stent placement Essential (primary) hypertension H/O aortic valve replacement Hyperlipidemia Asthma JOSE (obstructive sleep apnea) Asthma JOSE (obstructive sleep apnea) Chief Complaint F/U from cath [facility] PCI w/coronary stenting SLEEP APNEA PCI w/coronary stenting 1 Y FU PCI w/coronary stenting 6 W FU PCI w/coronary stenting PCI w/coronary stenting OBSTRUCTIVE SLEEP APNEA Reason for Visit Atherosclerotic hear t disease [place] coronary artery w/angina pectoris Dyspnea on exertion [...] JOSE (obstructive sleep apnea) Atherosclerotic heart disease [place] coronary artery w/angina pectoris Chronic GERD Essential (primary) hypertension H/O aortic valve replacement Hyperlipidemia Chief Complaint 1 Y FU PCI w/coronary stenting 6 W FU PCI w/coronary stenting OBSTRUCTIVE SLEEP APNEA PCI w/coronary stenting Trouble sleeping, not feeling well 2 M FU 1 y fu/ 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 state lower extremity Reason for Visit Asthma JOSE (obstructive sleep apnea) Asthma JOSE (obstructive sleep apnea) Atherosclerotic heart disease [place] coronary artery w/angina pectoris Chronic GERD Essential (primary) hypertension H/O aortic valve replacement Hyperlipidemia Asthma JOSE (obstructive sleep apnea) Atherosclerotic heart disease [place] coronary artery w/angina pectoris History of coronary artery stent placement Essential (primary) hypertension Fatigue H/O aortic valve replacement Hyperlipidemia Chief Complaint 6 M FU 5 m fu RECALL LETTER- COLONOSCOPY Reason for Visit Atherosclerotic hear t disease [place] coronary artery w/angina pectoris Dyspnea on exertion Palpitations Essential (primary) hypertension H/O aortic valve replacement Hyperlipidemia Asthma JOSE (obstructive sleep apnea) Personal history of colonic polyps Chief Complaint E-ORDER EORDER Annual/Physical Reason for Visit Atherosclerotic hear t disease [place] coronary artery w/angina pectoris Right knee DJD [...] July 312023 1:48pm Atherosclerotic heart diseas e [place] coronary artery w/angina pectoris August 31, 2024 11:08am Preop cardiovascular exam August 31, 2024 11:08am Essential (primary) hypertension [facility] r 2023 11:08am H/O aortic valve replacement [...] 3:17pm Overweight March 16, 2025 3:17 pm Chief Complaint Admit Date CONCERN FOR UTI December 01, 2024 2:22 pm OSTEOARTHRITIS RT KNEE, RX HERE November 12:00pm Groin Pain December 30, 2024 9:35 am LEFT HIP PAIN. RX HERE January 22, 2025 9:30am 1 Y FU March 16, 2025 3:17 pm 1 Y FU March 23, 2025 2:25 pm Nonrheumatic aortic (valve) stenosis Feb 11:00am Reason for Visit Admit Date Left hip pain December 30, 2024 9:35 am Asthma March 16, 2025 3:17 pm JOSE (obstructive sleep apnea) March 16, 2025 3:17pm Overweight March 16, 2025 3:17 pm Atherosclerotic heart diseas e [place] coronary artery w/angina pectoris March 23, 2025 2:25pm Essential (primary) hypertension March 232024 2:25pm H/O aortic valve replacement March 23, 2025 2:25pm Hyperlipidemia March 23, 2025 2:25 pm Chief Complaint Admit Date Groin Pain December 30, 2024 9:35 am LEFT HIP PAIN. RX HERE January 22, 2025 9:30am 1 Y FU March 16, 2025 3:17 pm 1 Y FU March 23, 2025 2:25 pm Nonrheumatic aortic (valve) stenosis Feb 11:00am Cough, Congestion April 29, 2025 11:3 8am Reason for Visit Admit Date Left hip pain December 30, 2024 9:35 am Asthma March 16, 2025 3:17 pm JOSE (obstructive sleep apnea) March 16, 2025 3:17pm Overweight March 16, 2025 3:17 pm Atherosclerotic heart diseas e [place] coronary artery w/angina pectoris March 23, 2025 2:25pm Essential (primary) hypertension March 232024 2:25pm H/O aortic valve replacement March 23, 2025 2:25pm Hyperlipidemia March 23, 2025 2:25 pm Asthmatic bronchitis April 29, 2025 11: 38am Atherosclerotic heart diseas e [place] coronary artery w/angina pectoris April 29, 2025 11:38am History of coronary artery stent placeme nt April 29, 2025 11:38am Asthma April 29, 2025 11:3 8am H/O aortic valve replacement April 29, 2025 11:38am Chief Complaint Admit Date 1 Y FU March 16, 2025 3:17 pm 1 Y FU March 23, 2025 2:25 pm Nonrheumatic aortic (valve) stenosis Paresh e 2024 11:00am Cough, Congestion April 29, 2025 11:3 8am 3 M FU June 16, 2025 3:17pm Reason for Visit Admit Date Asthma March 16, 2025 3:17 pm JOSE (obstructive sleep apnea) March 16, 2025 3:17pm Overweight March 16, 2025 3:17 pm Atherosclerotic heart diseas e [place] coronary artery w/angina pectoris March 23, 2025 2:25pm Essential (primary) hypertension March 232024 2:25pm H/O aortic valve replacement March 23, 2025 2:25pm Hyperlipidemia March 23, 2025 2:25 pm Asthmatic bronchitis April 29, 2025 11: 38am Atherosclerotic heart diseas e [place] coronary artery w/angina pectoris April 29, 2025 11:38am History of coronary artery stent placeme nt April 29, 2025 11:38am Asthma April 29, 2025 11:3 8am H/O aortic valve replacement April 29, 2025 11:38am Asthma June 16, 2025 3:17pm JOSE (obstructive sleep apnea) June 16, 2025 3:17pm Overweight June 16, 2025 3:17pm Additional Source Comments INFORMATION SOURCE (unrecogn ized section and content) DATE CREATED AUTHOR 12/17/2021 [facility] DATE CREATED AUTHOR AUTHOR'S ORGANIZ ATION 06/18/2025 [facility] Goals (unrecognized section and [...] Salas III, MD Family Provider Active Dr. Saqib Juárez MD Primary Care Provider Active Team Status: Inactive Member Role Status Dates Dr. Saqib Juárez MD Primary Care Provider, Referri ng Provider Active Paul Goodman RECREATION SUPERVISOR, RECREATION SUPERVISOR-C Attending Provider Active Team Status: Inactive Member Role Status Dates Dr. Saqib Juárez MD Primary Care Provider, Referri ng Provider Active Dr. Jairon Banks DO Attending Provider Active Team Status: Inactive Member Role Status Dates Dr. Saqib Juárez MD Primary Care Provider, Referri ng Provider Active Dr. Bill Salas MD Attending Provider Active Team Status: Active Member Role Status Dates Dr. Saqib Juárez MD Primary Care Provider, Referri ng Provider Active Dr. Bill Salas MD Attending Provider, Other Prov ider Active Team Status: Inactive Member Role Status Dates Dr. aSqib Juárez MD Primary Care Provider, Attendi ng Provider Active Team Status: Inactive Member Role Status Dates Dr. Saqib Juárez MD Primary Care Provider Active Rose Díaz NP, RECREATION SUPERVISOR-C Attending Provider, Referring P cheikh Active Team Status: Active Member Role Status Dates Dr. Saqib Juárez MD Primary Care Pro vider, Attending Provider, Referring Provider Active Team Status: Inactive Member Role Status Dates Dr. Saqib Juárez MD Primary Care Pro vider, Attending Provider, Referring Provider Active Team Status: Active Member Role Status Dates Dr. Saqib Juáerz MD Primary Care Provider Active Team Status: Inactive Member Role Status Dates Dr. Saqib Juárez MD Primary Care Provider Active Start: August 17, 2024 End: August 17, 2024 Dr. Saqib Juárez MD Attending Provider Active Start: August 17, 2024 End: August 17, 2024 Team Status: Inactive Member Role Status Dates Dr. Saqib Juárez MD Primary Care Provider Active Start: August 31, 2024 End: August 31, 2024 Dr. Saqib Juárez MD Referring Provider Active Start: August 31, 2024 End: August 31, 2024 Paul Goodman RECREATION SUPERVISOR, RECREATION SUPERVISOR-C Attending Provider Active S tart: August 31, 2024 End: August 31, 2024 Team Status: Inactive Member Role Status Dates Dr. Saqib Juárez MD Primary Care Provider Active Start: December 01, 2024 End: December 01, 2024 Dr. Saqib Juárez MD Referring Provider Active Start: December 01, 2024 End: December 01, 2024 Deondre Philip PA, PA Attending Provider Active Start: December 01, 2024 End: December 01, 2024 Team Status: Active Member Role Status Dates Dr. Saqib Juárez MD Primary Care Provider Active Start: December 01, 2024 Dr. Saqib Juárez MD Attending Provider Active Start: December 01, 2024 Team Status: Inactive Member Role Status Dates Dr. Saqib Juárez MD Primary Care Provider Active Start: December 04, 2024 End: December 04, 2024 Dr. Daniel Lim MD Attending Provider Active Start: December 04, 2024 End: December 04, 2024 Dr. Daniel Lim MD Referring Provider Active Start: December 04, 2024 End: December 04, 2024 Team Status: Inactive Member Role Status Dates Dr. Saqib Juárez MD Primary Care Provider Active Start: December 01, 2024 End: December 01, 2024 Dr. Saqib Juárez MD Attending Provider Active Start: December 01, 2024 End: December 01, 2024 Team Status: Inactive Member Role Status Dates Dr. Saqib Juárez MD Primary Care Provider Active Start: December 30, 2024 End: December 30, 2024 Dr. Saqib Juárez MD Attending Provider Active Start: December 30, 2024 End: December 30, 2024 Team Status: Inactive Member Role Status Dates Dr. Saqib Juárez MD Primary Care Provider Active Start: January 22, 2025 End: January 22, 2025 Dr. Saqib Juárez MD Attending Provider Active Start: January 22, 2025 End: January 22, 2025 Dr. Saqib Juárez MD Referring Provider Active Start: January 22, 2025 End: January 22, 2025 Team Status: Inactive Member Role Status Dates Dr. Saqib Juárez MD Primary Care Provider Active Start: March 16, 2025 End: March 16, 2025 Dr. Saqib Juárez MD Referring Provider Active Start: March 16, 2025 End: March 16, 2025 Rosibel Suh RECREATION SUPERVISOR, RECREATION SUPERVISOR-C Attending Provider Active Start: March 16, 2025 End: March 16, 2025 Team Status: Inactive Member Role Status Dates Dr. Saqib Juárez MD Primary Care Provider Active Start: March 23, 2025 End: March 23, 2025 Dr. Saqib Juárez MD Referring Provider Active Start: March 23, 2025 End: March 23, 2025 Dr. Yong Mora MD Attending Provider Active S tart: March 23, 2025 End: March 23, 2025 Team Status: Active Member Role/Relationship Status Dates Dr. Saqib Juárez MD Primary Care Provider Active Team Status: Inactive Member Role/Relationship Status Dates Dr. Saqib Juárez MD Primary Care Provider Active Start: December 01, 2024 End: December 01, 2024 Dr. Saqib Juárez MD Referring Provider Active Start: December 01, 2024 End: December 01, 2024 Deondre Philip PA, PA Attending Provider Active Start: December 01, 2024 End: December 01, 2024 Team Status: Inactive Member Role/Relationship Status Dates Dr. Saqib Juárez MD Primary Care Provider Active Start: December 01, 2024 End: December 01, 2024 Dr. Saqib Juárez MD Attending Provider Active Start: December 01, 2024 End: December 01, 2024 Team Status: Inactive Member Role/Relationship Status Dates Dr. Saqib Juárez MD Primary Care Provider Active Start: December 04, 2024 End: December 04, 2024 Dr. Daniel Lim MD Attending Provider Active Start: December 04, 2024 End: December 04, 2024 Dr. Daniel Lim MD Referring Provider Active Start: December 04, 2024 End: December 04, 2024 Team Status: Inactive Member Role/Relationship Status Dates Dr. Saqib Juárez MD Primary Care Provider Active Start: December 30, 2024 End: December 30, 2024 Dr. Saqib Juárez MD Attending Provider Active Start: December 30, 2024 End: December 30, 2024 Team Status: Inactive Member Role/Relationship Status Dates Dr. Saqib Juárez MD Primary Care Provider Active Start: January 22, 2025 End: January 22, 2025 Dr. Saqib Juárez MD Attending Provider Active Start: January 22, 2025 End: January 22, 2025 Dr. Saqib Juárez MD Referring Provider Active Start: January 22, 2025 End: January 22, 2025 Team Status: Inactive Member Role/Relationship Status Dates Dr. Saqib Juárez MD Primary Care Provider Active Start: March 16, 2025 End: March 16, 2025 Dr. Saqib Juráez MD Referring Provider Active Start: March 16, 2025 End: March 16, 2025 Rosibel Suh RECREATION SUPERVISOR, RECREATION SUPERVISOR-C Attending Provider Active Start: March 16, 2025 End: March 16, 2025 Team Status: Inactive Member Role/Relationship Status Dates Dr. Saqib Juárez MD Primary Care Provider Active Start: March 23, 2025 End: March 23, 2025 Dr. Saqib Juárez MD Referring Provider Active Start: March 23, 2025 End: March 23, 2025 Dr. Yong Mora MD Attending Provider Active S tart: March 23, 2025 End: March 23, 2025 Team Status: Inactive Member Role/Relationship Status Dates Dr. Saqib Juárez MD Primary Care Provider Active Start: March 26, 2025 End: March 26, 2025 Dr. Yong Mora MD Attending Provider Active S tart: March 26, 2025 End: March 26, 2025 Dr. Yong Mora MD Referring Provider Active S tart: March 26, 2025 End: March 26, 2025 Team Status: Active Member Role/Relationship Status Dates Dr. Saqib Juárez MD Primary Care Provider Active Start: March 26, 2025 Dr. Yong Mora MD Attending Provider Active S tart: March 26, 2025 Team Status: Inactive Member Role/Relationship Status Dates Dr. Saqib Juárez MD Primary Care Provider Active Start: December 30, 2024 End: December 30, 2024 Dr. Saqib Juárez MD Attending Provider Active Start: December 30, 2024 End: December 30, 2024 Team Status: Inactive Member Role/Relationship Status Dates Dr. Saqib Juárez MD Primary Care Provider Active Start: January 22, 2025 End: January 22, 2025 Dr. Saqib Juárez MD Attending Provider Active Start: January 22, 2025 End: January 22, 2025 Dr. Saqib Juárez MD Referring Provider Active Start: January 22, 2025 End: January 22, 2025 Team Status: Inactive Member Role/Relationship Status Dates Dr. Saqib Juárez MD Primary Care Provider Active Start: March 16, 2025 End: March 16, 2025 Dr. Saqib Juárez MD Referring Provider Active Start: March 16, 2025 End: March 16, 2025 Rosibel Suh RECREATION SUPERVISOR, RECREATION SUPERVISOR-C Attending Provider Active Start: March 16, 2025 End: March 16, 2025 Team Status: Inactive Member Role/Relationship Status Dates Dr. Saqib Juárez MD Primary Care Provider Active Start: March 23, 2025 End: March 23, 2025 Dr. Saqib Juárez MD Referring Provider Active Start: March 23, 2025 End: March 23, 2025 Dr. Yong Mora MD Attending Provider Active S tart: March 23, 2025 End: March 23, 2025 Team Status: Inactive Member Role/Relationship Status Dates Dr. Saqib Juárez MD Primary Care Provider Active Start: March 26, 2025 End: March 26, 2025 Dr. Yong Mora MD Attending Provider Active S tart: March 26, 2025 End: March 26, 2025 Dr. Yong Mora MD Referring Provider Active S tart: March 26, 2025 End: March 26, 2025 Team Status: Active Member Role/Relationship Status Dates Dr. Saqib Juárez MD Primary Care Provider Active Start: March 26, 2025 Dr. Yong Mora MD Attending Provider Active S tart: March 26, 2025 Team Status: Inactive Member Role/Relationship Status Dates Dr. Saqib Juárez MD Primary Care Provider Active Start: April 29, 2025 End: April 29, 2025 Dr. Saqib Juárez MD Attending Provider Active Start: April 29, 2025 End: April 29, 2025 Team Status: Active Member Role/Relationship Status Dates Dr. Saqib Juárez MD Primary care physician Active Team Status: Inactive Member Role/Relationship Status Dates Dr. Saqib Juárez MD Primary care physician Active Start: March 16, 2025 End: March 16, 2025 Dr. Saqib Juárez MD Referring Provider Active Start: March 16, 2025 End: March 16, 2025 Rosibel Suh NP RECREATION SUPERVISOR-C Attending physician Active Start: March 16, 2025 End: March 16, 2025 Team Status: Inactive Member Role/Relationship Status Dates Dr. Saqib Juárez MD Primary care physician Active Start: March 23, 2025 End: March 23, 2025 Dr. Saqib Juárez MD Referring Provider Active Start: March 23, 2025 End: March 23, 2025 Dr. Yong Mora MD Attending physician Active Start: March 23, 2025 End: March 23, 2025 Team Status: Inactive Member Role/Relationship Status Dates Dr. Saqib Juárez MD Primary care physician Active Start: March 26, 2025 End: March 26, 2025 Dr. Yong Mora MD Attending physician Active Start: March 26, 2025 End: March 26, 2025 Dr. Yong Mora MD Referring Provider Active S tart: March 26, 2025 End: March 26, 2025 Team Status: Active Member Role/Relationship Status Dates Dr. Saqib Juárez MD Primary care physician Active Start: March 26, 2025 Dr. Yong Mora MD Attending physician Active Start: March 26, 2025 Team Status: Inactive Member Role/Relationship Status Dates Dr. Saqib Juárez MD Primary care physician Active Start: April 29, 2025 End: April 29, 2025 Dr. Saqib Juárez MD Attending physician Active Start: April 29, 2025 End: April 29, 2025 Team Status: Inactive Member Role/Relationship Status Dates Dr. Saqib Juárez MD Primary care physician Active Start: June 16, 2025 End: June 16, 2025 Dr. Saqib Juárez MD Referring Provider Active Start: June 16, 2025 End: June 16, 2025 Rosibel Suh NP RECREATION SUPERVISOR-C Attending physician Active Start: June 16, 2025 End: June 16, 2025 FOR RECORDS PERTAINING TO PATIENTS WHO [...] BE BASED ON THE PRIMARY CLINICAL RECORDS. [facility]. provides no warranty or guarantee of the accuracy or completeness of information in this document.
== END | disposition home or self-care (01) ==
PROVIDERS: PCP Internal Medicine; Referring Provider Nurse Practitioner Acute Care; Visit Provider Nurse Practitioner Acute Care
DX: G47.33 Obstructive sleep apnea (adult) (pediatric) (principal)
CPT/HCPCS: 95811

== ENCOUNTER 2025-07-02 23:22 | Inpatient (IN) | payer MEDICARE, OTHER, SELFPAY ==
[2024-05-01 09:54] VITALS: BMI 28.5
[2025-07-02 23:23] VITALS: BP 164/73; PULSE 62; RESP 17; TEMP 36.8; O2SAT 96; BMI 31.1
--- NOTE | 2025-07-02 23:30 | EKG12_ITS ---
Test Reason : CP Blood Pressure : */* mmHG Vent. Rate : 63 BPM Atrial Rate : 63 BPM P-R Int : 220 ms QRS Dur : 98 ms QT Int : 410 ms P-R-T Axes : 23 -1 52 degrees QTcB Int : 419 ms Sinus rhythm with 1st degree A-V block RSR' or QR pattern in V1 suggests right ventricular conduction delay Septal infarct , age undetermined Abnormal ECG Confirmed by OLIVER DOOLEY, MILTON ([id number]), general expeditor CHANTELL BROCK ([id number]) on 07/05/2025 6:31:07 AM Referred By: BB Confirmed By: MILTON BOYD MD
[2025-07-03] VITALS (20 sets, daily range): BP systolic 130–194; BP diastolic 57–86; PULSE 64–82; RESP 16–18; TEMP 36.2–37.1; O2SAT 93–97; BMI 32.6; BMI 32.5
--- OUTSIDE RECORDS SUMMARY | 2025-07-03 00:06 | XMS RPT_ITS | CCD ---
Author Organization [facility] Care Team Providers Care Safety Person Name Role Phone Breonna Marrero Unavailable Unavailable Cayla RN, Evelin Ruth Unavailable Unavailable Cayla ALFARO, Evelin Ruth Unavailable Unavailable ALEXANDRE Barone, Stefania Guzman Unavailable [phone] Cayla RN, Evelin Ruth Unavailable Unavailable Dr. Saqib Juárez Primary Care Provider Dr. Saqib Juárez Attending Provider [phone] Dr. Saqib Juárez Referring Provider [phone] Dr. Yong Mora Attending Provider [phone] Yong Mora Admit Provider Dr. Yong Mora Referring Provider [phone] Yong Mora Other Provider Dr. Yong Mora Referring Provider Dr. Bill Salas Attending Provider Rex FISH RECEIVER, FISH RECEIVER-C Paul Ferguson Attending Provider Dr. Saqib Juárez Primary Care Provider Dr. Saqib Juárez Attending Provider [phone] Dr. Saqib Juárez Referring Provider [phone] Dr. Jairon Banks Attending Provider Dr. Saqib Juárez Primary Care Provider Dr. Yong Mora Attending Provider Dr. Saqib Juárez Referring Provider [phone] Vikash FISH RECEIVER, FISH RECEIVER-C Rosibel Attending Provider Dr. Saqib Juárez Primary Care Provider Dr. Saqib Juárez Referring Provider [phone] Dr. Yong Mora Attending Provider Vikash FISH RECEIVER, FISH RECEIVER-C Rosibel Referring Provider Dr. Saqib Juárez Primary Care Provider Dr. Saqib Juárez Referring Provider [phone] Dr. Saqib Juárez Attending Provider [phone] Dr. Saqib Juárez Primary Care Provider Dr. Saqib Juárez Referring Provider [phone] Dr. Jairon Banks Attending Provider Suh FISH RECEIVER, FISH RECEIVER-C Rosibel Attending Provider [phone] Vikash FISH RECEIVER, FISH RECEIVER-C Rosibel Referring Provider [phone] Dr. Saqib Juárez Attending Provider [phone] Rex FISH RECEIVER, FISH RECEIVER-C Paul Ferguson Attending Provider Dr. Saqib Juárez Primary Care Provider Dr. Saqib Juárez Referring Provider Rex FISH RECEIVER, FISH RECEIVER-C Paul Ferguson Attending Provider Dr. Jairon Banks Attending Provider Dr. Bill Salas Attending Provider Dr. Bill Salas Other Provider Dr. Saqib Juárez Primary Care Provider Dr. Saqib Juárez Attending Provider Dr. Saqib Juárez MD Primary Care Provider Dr. Saqib Juárez MD Attending Provider Dr. Saqib Juárez MD Referring Provider Roof FISH RECEIVER-C, Paul Ferguson Attending Provider Cedrick ARBOLEDA, Deondre Guzman Attending Provider Carina DOOLEY, Dr. Daniel Guzman Attending Provider Carina DOOLEY, Dr. Daniel Guzman Referring Provider Meena DOOLEY, Dr. Ibarra Primary Care Provider [phone] Meena DOOLEY, Dr. Ibarra Referring Provider Meena DOOLEY, Dr. Ibarra Attending Provider Vikash FISH RECEIVER-C, Rosibel Attending Provider Abby DOOLEY, Dr. Beach Attending Provider Abby DOOLEY, Dr. Beach Referring Provider Meena DOOLEY, Dr. Ibarra Primary Care Provider [phone] Meena DOOLEY, Dr. Ibarra Attending Provider Meena DOOLEY, Dr. Ibarra Referring Provider Meena DOOLEY, Dr. Ibarra Primary Care Physician [phone] Meena DOOLEY, Dr. Ibarra Referring Provider Vikash FISH RECEIVER-C, Rosibel Attending Physician Abby DOOLEY, Dr. Beach Attending Physician [phone] Meena DOOLEY, Dr. Ibarra Attending Physician [phone] Meena, Saqib Primary Care Unavailable Daniel Lim Attending Unavailable Daniel Lim Referring Unavailable MeenaSaqib Attending Unavailable Meena, Saqib Primary Care Unavailable Meena, Saqib Attending Unavailable Meena, Saqib Referring Unavailable Meena, Saqib Primary Care Unavailable Abby, Yong Attending Unavailable Abby, Yong Referring Unavailable Meena, Saqib Primary Care Unavailable Meena, Saqib Primary Care Unavailable Suh FISH RECEIVER, Rosibel Attending Unavailable Suh FISH RECEIVER, Rosibel Referring Unavailable Meena, Saqib Attending Unavailable Meena, Saqib Primary Care Unavailable Suh FISH RECEIVER, Rosibel Attending Unavailable Meena, Saqib Referring Unavailable Meena, Saqib Primary Care Unavailable Abby, [place] Attending Unavailable Meena, Saqib Primary Care Unavailable Meena, Saqib Primary Care Unavailable Meena, Saqib Attending Unavailable Paul Goodman Attending Unavailable Saqib Juárez Referring Unavailable Meena, Saqib Primary Care Unavailable Deondre Philip Attending Unavailable Meena, Saqib Referring Unavailable Meena, Saqib Primary Care Unavailable Saqib Juárez Attending Unavailable Meena, Saqib Primary Care Unavailable Rosibel Suh NP Attending Unavailable Meena, Saqib Referring Unavailable Meena, Saqib Primary Care Unavailable Yong Mora Attending Unavailable Meena, Saqib Referring Unavailable Meena, Saqib Primary Care Unavailable Meena, Saqib Primary Care Unavailable Obed Medina Attending Unavailable Obed Medina Referring Unavailable Vikash FISH RECEIVER-CRosibel Referring Provider Allergies Allergy Classification Reported Allergen(s) Allergy Type Date of Onset Reaction(s) Facility (5 sources) atorvastatin Drug Allergy 7 myalgia [facility] Work Phone: [phone] (20 sources) meloxicam; Translations: [meloxicam] Drug Allergy 7 Nausea [facility] Work Phone: [phone] (20 sources) methotrexate; Translations: [methotrexate] Drug Allergy 7 Nausea [facility] Work Phone: [phone] (5 sources) NSAIDs drug allergy 7 GI symptoms [facility] Work Phone: [phone] (5 sources) Sulfonamides (Antibiotic) drug allergy 7 Nausea [facility] Work Phone: [phone] (20 sources) Sulfonamides (Antibiotic); Translations: [Sulfa (Sulfonamide Antibiotics)] Propensity to adverse reactions 2 Nausea [facility] (20 sources) NSAIDS (Non-Steroidal Anti-Inflamma; Translations: [NSAIDS (Non-Steroidal Anti-Inflamma] Propensity to adverse reactions 2 Nausea [facility] Medications Current Medications Medication Drug Class(es) Dates Sig (Normalized) Sig (Original) 8 hr acetaminophen 650 mg extended release oral tablet (20 sources) Start: 02-22-2022 take 2 tablets by mouth every twelve hours Start: 02-22-2022 take 1300 mg by mout [...] 06, 2017 12:00am February 22, 2022 11:35am [id number] 200 actuat albuter ol 0.09 mg/actuat metered dose inhaler (20 sources) beta2-Adrenergic Agonist Start: 02-23-2021 End: 05-17-2022 Start: 02-23-2021 End: 05-17-2022 take 1 puff(s) by inhalation every four hours Albuterol Sulfate Active 2 PUFF INHALATION Q4H 8.5 May 17, 2022 7:14am administer with spacer Start: 04-29-2017 End: 05-21-2017 VENTOLIN HFA 108 (90 Base) M CG/ACT AERS As needed - 90mcg/inh ALBUTEROL SULFATE [id number] Wil Rivas MD Start: 04-16-2017 End: 10-02-2017 [...] 2017 8:16pm ascorbic acid 1000 mg oral t ablet (20 sources) Start: 12-30-2024 take 1 g by mouth once daily Start: 02-10-2021 End: 12-30-2024 take 1 g by mouth twice daily Ascorbic Acid (Vitamin C ) 1,000 mg tablet Discontinued 1 g PO TWICE A DAY February 10, 2021 12:00am December 30, 2024 9:40am vitamin Start: 05-14-2021 take 1 g by mouth twice daily [...] 1 tablet by sage th twice daily VITAMIN C 1000 MG TABS One tablet by mouth twice daily ASCORBIC ACID [id number] Breonna Marrero Start: 04-30-2017 take 3 tablets by mo [facility] twice daily VITAMIN C 1000 MG TABS Three tablets by mouth twice a day ASCORBIC ACID [id number] Stefania Little RN aspirin 81 mg delayed release oral tablet (20 sources) Nonsteroidal Anti-inflammatory Drug Start: 10-02-2017 Start: 05-07-2017 take 1 tablet by sage th once daily ASPIRIN EC 81 MG TBEC One tablet by mouth daily ASPIRIN [id number] Breonna Marrero Start: 04-29-2017 End: 04-30-2017 take 1 tablet by mouth once daily ASPIRIN EC 81 MG TBEC One tablet by mouth daily ASPIRIN [id number] Stefania Little RN calcium carbonate 600 mg / cholecalciferol 0.01 mg oral tablet (20 sources) Vitamin D Start: 10-02-2017 [place] 3-Sss-Prn-Fish Oil (20 sources) Start: 02-22-2022 take 300-1000 mg by mouth once daily [place] 0-Wsz-Ycd-Fish Oil (Fish Oil) 300-1,000 mg capsule Active 1 CAP PO DAILY February 22, 2022 11:34am Start: 02-22-2022 End: 03-12-2023 [place] 0-Bjj-Ojv-Fish Oil (Fi sh Oil) 300-1,000 mg capsule Discontinued 1 NMA PO DAILY February 22, 2022 12:00am March 12, 2023 10:45am supplement Start: 02-22-2022 End: 03-12-2023 [place] 3-Ylw-Dcb-Fish Oil (Fi sh Oil) 300-1,000 mg capsule Discontinued 1 NMA PO DAILY February 22, 2022 12:00am March 12, 2023 10:45am Start: 02-22-2022 End: 03-12-2023 take 300-1000 mg by mouth once daily [place] 3-Hvx-Chs-Fish Oil (Fish Oil) 300-1,000 mg capsule Discontinued 1 CAP PO DAILY February 22, 2022 12:00am March 12, 2023 10:45am Start: 02-22-2022 take 300-1000 mg by mouth once daily [place] 7-Dho-Djv-Fish Oil (Fish Oil) 300-1,000 mg capsule Active 1 CAP PO DAILY February 21, 2022 11:00pm Start: 02-22-2022 take 300-1000 mg by mouth once daily [place] 8-Pjq-Pkk-Fish Oil (Fish Oil) 300-1,000 mg capsule Active 1 CAP PO DAILY February 22, 2022 12:00am ferrous sulfate 325 mg oral tablet (16 sources) Start: 08-31-2024 take 1 tablet by sage th once daily Start: 03-17-2024 End: 08-17-2024 take 1 tablet by mouth once daily Ferrous Sulfate 325 mg (65 mg iron) tablet Discontinued 325 mg PO DAILY March 17, 2024 12:00am August 17, 2024 2:54pm Fluticasone Furoate-Vilanter ol (20 sources) Corticosteroid, beta2-Adrenergic Agonist Start: 03-16-2025 Start: 03-16-2025 Fluticasone Fu roate-Vilanterol (Breo Ellipta) [...] device Discontinued 1 NMA INHALATION DAILY 12 03January 22, 2024 9:29am February 02, 2025 2:30pm [...] device Discontinued 1 NMA INHALATION DAILY 12 03January 21, 2024 1:36pm January 22, 2024 9:30am [...] Discontinued 1 INH INHALATION DAILY 3 May 17, 2022 7:14am [...] Discontinued 1 NMA INHALATION DAILY 3 May 18, 2021 7:39am [...] device Discontinued 1 NMA INHALATION DAILY 3 March 31, 2021 11:32am [...] 2021 11:34am linseed oil 1000 mg oral cap leoncio (20 sources) Start: 03-12-2023 take 1 capsule by mo [facility] once daily Start: 02-06-2017 End: 02-22-2022 take 1 capsule [...] 12:00am October 02, 2017 8:15pm Multivitamin tablet (8 sources) Start: 02-02-2019 Start: 02-02-2019 Multivitamin t ablet Active 1 [...] B12 Start: 02-06-2017 take 1 tablet by sage once daily Completed/Discontinued Medications Medication Drug Class(es) Dates Sig [...] tablet Discontinued 5 mg PO DAILY 90 September 02, 2023 1:00am January 30, 2024 3:29pm amoxicillin 500 mg oral tablet (5 sources) Penicillin-class Antibacterial Start: 05-21-2017 take 4 tablets by mouth every hour AMOXICILLIN 500 MG TABS 4 tablets by mouth 1 hr prior to procedure AMOXICILLIN [id number] Wil Rivas MD amoxicillin 500 mg / clavulanate 125 mg oral tablet (10 sources) Penicillin-class Antibacterial Start: 04-30-2017 End: 05-07-2017 take 1 tablet by mouth twice daily AUGMENTIN 500-125 MG TABS One tablet by mouth twice daily AMOXICILLIN-POT CLAVULANATE [id number] Sidra Madrid RN atorvastatin 40 mg oral [...] One tablet by mouth daily ATORVASTATIN CALCIUM [id number] Breonna Marrero Start: 04-16-2017 End: 05-02-2017 take [...] BENZONATATE 100 MG CAPS as needed BENZONATATE [id number] Breonna Marrero Start: 05-04-2017 End: 10-02-2017 take [...] tablet by mouth daily CALCIUM CARBONATE TABS [id number] Evelin Kulkarni RN Start: 04-29-2017 End: 05-07-2017 take 1 tablet by mouth once daily CALCIUM CARBONATE TABS One tablet by mouth daily CALCIUM CARBONATE TABS [id number] Breonna Marrero Start: 02-06-2017 End: 10-02-2017 take [...] TABS One tablet by mouth daily CHOLECALCIFEROL [id number] Evelin Kulkarni RN ciprofloxacin 500 mg oral [...] mg/ml / guaiFENesin 20 mg/ml oral solution (3 sources) Opioid Agonist Start: 04-29-2025 End: 06-16-2025 [...] One tablet by mouth daily DOCUSATE SODIUM [id number] Wil Rivas MD esomeprazole 20 mg delayed release oral capsule (13 sources) Proton Pump Inhibitor Start: 07-26-2022 End: [...] tablet by mouth daily FLAXSEED (LINSEED) CAPS [id number] Evelin Kulkarni RN Fluad Quad [id number](65yr up)(PF) 60 mcg (15 mcg x 4)/0.5mL [...] CONGESTION 100 MG/5ML SYRP As needed GUAIFENESIN [id number] Wil Rivas MD hydroCHLOROthiazide 12.5 mg oral tablet (20 sources) Thiazide Diuretic Start: 04-29-2020 End: 04-29-2020 take 2 tablets by mouth once daily Hydrochlorothiazide 12.5 mg tablet Discontinued 25 mg PO daily 90 April 29, 2020 2:00pm April 29, 2020 [...] TABS One tablet by mouth daily HYDROCHLOROTHIAZIDE [id number] Wil Rivas MD hydroCHLOROthiazide 12.5 mg / [...] TABS One tablet by mouth daily LISINOPRIL-HYDROCHLOROTHIAZIDE [id number] Evelin Kulkarni RN hydroCHLOROthiazide 12.5 mg / [...] tablet Discontinued 1 {tbl} PO DAILY 90 3 April 29, 2020 12:00am October 07, 2020 11:02am Start: 04-29-2020 End: 10-07-2020 take 1 tablet by mouth once daily Losartan-Hydrochlorothiazide Discontinue d 1 TABLET PO DAILY 90 April 29, 2020 12:00am [...] % PTCH remove & reapply daily LIDOCAINE [id number] Stefania Little RN losartan potassium 50 mg oral tablet (20 sources) Angiotensin 2 Receptor Sherif Start: 10-02-2017 End: 04-29-2020 take 1 tablet by mouth once daily Losartan 50 mg tablet Discontinued 50 mg PO daily 90 3 December 29, 2019 5:17pm April 29, 2020 2:00pm Start: 08-05-2017 take 1 tablet by sage th once daily LOSARTAN POTASSIUM 25 MG TABS One tablet by mouth daily LOSARTAN POTASSIUM [id number] Wil Rivas MD Start: 08-05-2017 take 1 tablet by sage once daily LOSARTAN POTASSIUM 50 MG TABS One tablet by mouth daily LOSARTAN POTASSIUM [id number] Stefania Barone PA-C magnesium oxide 400 mg [...] tablet by mouth twice daily MAGNESIUM OXIDE [id number] Stefania Little RN melatonin 10 mg oral [...] hr Discontinued 50 mg PO DAILY 90 3 October 12, 2022 10:36am May 03, 2023 3:40pm BLOOD PRESSURE MULTIPLE VITAMINS-MINERALS (10 sources) Start: 04-30-2017 End: 05-07-2017 take 1 tablet by mouth once daily MULTIVITAMIN ADULT TABS One tablet by mouth daily MULTIPLE VITAMINS-MINERALS [id number] Breonna Marrero Start: 04-30-2017 take 1 tablet by sage once daily MULTIVITAMIN ADULT TABS One tablet by mouth daily MULTIPLE VITAMINS-MINERALS [id number] Stefania Little RN Multivitamin 1 EACH tablet (8 sources) Start: 05-02-2017 End: 10-02-2017 Multivitamin 1 EACH tablet Discontinued 1 NMA PO DAILY May 02, 2017 12:00am October 02, 2017 8:15pm SUPPLEMENT Start: 05-02-2017 End: 10-02-2017 Multivitamin 1 EACH tablet D iscontinued 1 NMA PO DAILY May 02, 2017 12:00am October 02, 2017 8:15pm nitrofurantoin, macrocrystals 25 mg / nitrofurantoin, monohydrate 75 mg oral capsule (8 sources) Nitrofuran Antibacterial Start: 12-01-2024 End: 12-06-2024 [...] tablet by mouth at bedtime. PRAVASTATIN SODIUM [id number] Wil Rivas MD predniSONE 10 mg oral tablet (3 sources) Start: 04-29-2025 End: 06-16-2025 Prednisone 10 mg tablet Discontinued 10 mg PO As Directed April 29, 2025 12:00am June 16, 2025 [...] 90 mg PO TWICE A DAY 180 May 24, 2023 4:45pm September 02, 2023 5:29pm traMADol hydrochloride 50 mg oral tablet (20 sources) Opioid Agonist Start: 04-29-2017 End: 08-26-2017 ULTRAM 50 MG TABS 1 tablet every 4 hours. TRAMADOL HCL [id number] Wil Rivas MD Start: 04-12-2017 End: 10-02-2017 [...] 09-13-2022 End: 05-07-2025 Trazodone 100 mg tablet Disc ontinued 50 mg PO AT BEDTIME as needed for insomnia 90 1 June 15, 2024 3:07pm May 07, 2025 9:55am Take one half to one tablet one hour before sleep. triamcinolone acetonide 1 mg/ml topical cream (20 sources) Corticosteroid Start: 05-02-2017 End: 10-02-2017 Triamcinolone Acetonide 1 APPLIC cream Discontinued 1 NMA TP DAILY as needed for Itching May 02, 2017 12:00am October 02, 2017 8:16pm Start: 04-30-2017 End: 05-07-2017 TRIAMCINOLONE ACETONIDE 0.1 % OINT Apply as directed TRIAMCINOLONE ACETONIDE [id number] Stefania Little RN B COMPLEX VITAMINS (10 sources) Start: 04-30-2017 End: 05-07-2017 take 1 tablet by mouth once daily VITAMIN B COMPLEX TABS One tablet by mouth daily B COMPLEX VITAMINS [id number] Breonna Marrero Start: 04-30-2017 take 1 tablet by sage th once daily VITAMIN B COMPLEX TABS One tablet by mouth daily B COMPLEX VITAMINS [id number] Stefania Little RN Vitamin B Complex (B Complex 1) tablet (20 sources) Start: 02-02-2019 End: 02-10-2021 take 1 tablet by mouth once daily Vitamin B Complex (B Complex 1) tablet Discontinued 1 TABLET PO DAILY February 02, 2019 11:13am May 14th, 2021 11:09am Start: 02-02-2019 End: 02-10-2021 Vitamin [...] Chronic Comment on above: Breo Cardiac dysrhythmias (12 sources) Palpitations; Translations: [Palpitations] 03-12-2023 Episodic Coronary atherosclerosis and other heart disease (20 sources) Coronary atherosclerosis; Translations: [Atherosclerotic heart disease of lummi coronary artery with unspecified angina pectoris] Onset: 04-29-2025 Chronic Comment on above: [id number] LAD at D2 bifurcation w/ 3.5 x 18 mm [facility] Stent and POBA-D2 03/02/22; Coronary atherosclerosis and other heart disease (20 sources) Presence of coronary angioplasty implant and graft; Translations: [Percutaneous transluminal coronary angioplasty status] Onset: 03-02-2022 Episodic Disorders of lipid metabolism (20 sources) Hyperlipidemia; Translations: [Hyperlipidemia, unspecified] Onset: 04-29-2017 04-29-2017 Chronic E Codes: Fall (12 sources) Fall; Translations: [Unspecified fall, initial encounter] 09-18-2022 Episodic Esophageal disorders (15 sources) Gastroesophageal reflux disease; Translations: [Gastro-esophageal reflux [...] on above: # 21 Trifecta Valve @ [facility] Dr Sutherland Immunizations and screening for infectious disease (1 source) Encounter for immunization; Translations: [Encounter for immunization] Onset: 06-16-2025 Episodic Malaise and fatigue (13 sources) Fatigue; Translations: [Other fatigue] Episodic Nonspecific chest pain (20 sources) Chest pain; Translations: [Chest pain, unspecified] 07-05-2021 Episodic Osteoarthritis (20 sources) Osteoarthritis of right knee joint; Translations: [Unilateral primary osteoarthritis, right knee] Onset: 08-17-2024 09-17-2022 Chronic Other and unspecified benign neoplasm (11 sources) History of polyp of colon; Translations: [Personal history of colonic polyps] 04-04-2023 Episodic Other and unspecified benign neoplasm (1 source) Personal history of colonic polyps; Translations: [Personal history of colonic polyps] 04-04-2023 Episodic Other connective tissue disease (10 sources) Swelling of lower limb; Translations: [Other specified soft tissue disorders] 01-30-2024 Episodic Other inflammatory condition of skin (10 sources) Pruritus, unspecified; Translations: [Pruritus] 08-17-2024 Episodic [...] respiratory abnormalities] Episodic Other non-traumatic joint disorders (12 sources) Pain in right knee; Translations: [Right knee pain] 02-06-2024 Episodic Other non-traumatic joint disorders (10 sources) Hip pain; Translations: [Pain in left hip] 12-30-2024 Episodic Other nutritional; endocrine; and metabolic disorders (10 sources) Obesity; Translations: [Obesity, unspecified] Chronic Other nutritional; endocrine; and metabolic disorders (12 sources) Overweight; Translations: [Overweight] 03-17-2025 Episodic Other [...] (adult)(pediatric)] Onset: 06-16-2025 Chronic Residual codes; unclassified (11 sources) Insomnia; Translations: [Insomnia, unspecified] 09-13-2022 Episodic Unclassified (10 sources) Long-term drug therapy; Translations: [Other alf (current) drug therapy] Onset: 04-29-2017 05-01-2017 Unclassified [...] Facility Pulmonary Visit Reporton Pulmonary Visit Report [facility]monary Medicine [address] [place] [address] OFFICE VISIT Date of Service: 06/16/25 MR#: [id number] Acct: [id number] Name: KARYN MULLER Rep #: [id number] : 1945 Provider: ROE Suh Age/Sex: 79/F [facility] Status: Signed Assessment and Plan Assessment and [...] Additional Comments: This note was generated with [employer] dictation software. It may contain incorrect words, [...] 3 M FU Chief Complaint: Cough, Congestion Rag Willow Operator Required: No DME Vendor: Eben Accompanied by: Self Is patient [...] Q12H ar (more content not included)... Normal [facility] MR/BMS.ARNULFOBon 04-29-2025 MR/BMS.IMB [facility] [address] [place] [address] OFFICE VISIT Date of Service: 04/29/25 MR#: [id number] Acct: [id number] Name: KARYN MULLER Rep #: [id number] : 1945 Provider: Dr. Saqib joya MD Age/Sex: 79/F Location: [facility] Status: Signed Intake Vital Signs 03/23/25 14:28 [...] Reasons: Cough, Congestion Chief Complaint: Cough, Congestion Rag Willow Operator Required: No Accompanied by: Self Is patient [...] B-12) 1,000 mcg PO DAILY SUPPLEMENT 01/28 004/29/25 History 1,000 mcg tablet aspirin 81 mg [...] counseling Generalized OA Diverticulitis 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 Nonrheumatic aortic (valve) [...] Cough, Congesti (more content not included)... Normal [facility] Echocardiogram study reportO rdered By: Yong Mora on 03-30-2025 Study report [facility] Cardiovascular Services [address] [place] [address] Echo Complete 03/26/25 1110 MR#: [id number] Acct: [id number] Name: KARYN MULLER Rep #:[id number] : 1945 79 From: Yong Duncan Attending Dr: Dr. Yong Mora MD S tatus: REG CLI Ordering Dr: Yong Mora MD Date: Location: [facility] Sex: F C Admitted: Reason For Study [...] JUÁREZ Performed By: Cassandra Jordan RDCS 03/30/25 104 Date _ Yong Mora MD CC: Dr. Yong Mora MD; Dr. Saqib Juárez MD ~ Date Dictated: 03/26/25 1110 Date Transcribed: 03/30/25 104 Hospital Product Specialist: Signed [facility] Work Phone: Echo Completeon 03-26-2025 Echo Complete [facility] Cardi[facility] Services [address] [place] [address] Echo Complete 03/26/25 1110 MR#: [id number] Acct: [id number] Name: KARYN MULLER Rep #: [id number] : 1945 79 From: Yong Mora MD Attending Dr: Dr. Yong Mora MD Status: REG C KANNAN Ordering Dr: Yong Mora MD Date: 03/26/25 Location: [facility] Sex: F C Admitted: Reason For Study [...] Dictated: 03/26/25 1110 Date Transcribed: 03/30/25 1049 Hospital Product Specialist: Signed Normal [facility] Cardiology Visit Reporton Cardiology Visit Report [facility] [address] [place] [address] OFFICE VISIT Date of Service: 03/23/25 MR#: [id number] Acct: [id number] Name: KARYN MULLER Rep #: [id number] : 1945 Provider: Dr. Yong Mora MD Age/Sex: 79/F Location: [facility] Status: Signed HPI HPI History of Present Illness Details: This is a 79-year-old female who presents for a cardiovascular outpatient follow-up. 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 Sutherland. Prior [...] air Intake Visit Reasons: 1 Y FU Rag Willow Operator Required: No Accompanied by: Self Is patient [...] you fallen in the past year?: [facility] Left hip pain Pruritus Preop exam for internal medicine Wears hearing aid Wears glasses Alcohol use Low iron Restless legs Heartburn CPAP (continuous positive airway pressure) dependence Former smoker Liliane (more content not included)... Normal [facility] Pulmonary Visit Reporton Pulmonary Visit Report [facility] [place] [address] [place] [address] OFFICE VISIT Date of Service: 03/16/25 MR#: [id number] Acct: [id number] Name: KARYN MULLER Rep #: [id number] : 1945 Provider: ROE Suh Age/Sex: 79/F Location: [facility] Status: Signed Assessment and Plan Assessment and [...] Additional Comments: This note was generated with [employer] dictation software. It may contain incorrect words, [...] 1 Y FU Chief Complaint: Groin Pain Rag Willow Operator Required: No DME Vendor: Eben Accompanied by: [...] grams (more content not included)... Normal [facility] PT D/C Summary (1)on 025 PT D/C Summary (1) [facility] [address] [facility] [facility]. [address] [place] [address] / REHABILITATION SERVICES DISCHARGE SUMMARY MR#: [id number] Acct: [id number] Name: KARYN MULLER Rep #: [id number] : 1945 79 From: Sonu Mast PT, ATC Referring Dr.: Dr. Saqib Juárez MD Status: R EG RCR Insurance: MEDICARE PART A B [facility] Discharge Summary D/C summary: [...] please feel free to call me at [phone]. Thank you for the referral of this patient. Sincerely, Sonu Mast, PT, ATC Balance/Gait/Functional tests Balance/Special Test Scores Lower Extremity Functional Score: 45 01/22/25 1001 CC: Dr. Saqib Juárez MD [facility] Signed Normal [facility] MR/BMS.Murphy 12-30-2024 MR/BMS.ARNULFOB [facility] [address] [facility] [place] [address] OFFICE VISIT Date of Service: 12/30/24 MR#: [id number] Acct: [id number] Name: KARYN MULLER Rep #: [id number] : 1945 Provider: Dr. 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 She has completed deep tissue massage therapist (more content not included)... [facility] PT D/C Summary (1)on 025 PT D/C Summary (1) [facility] [address] [place] [address] [address] [place] [address] / REHABILITATION SERVICES DISCHARGE SUMMARY MR#: [id number] Acct: [id number] Name: KARYN MULLER Rep #: [id number] : 1945 79 From: Sonu Mast PT, ATC Referring Dr.: Dr. Daniel Lim MD Status: R EG RCR Insurance: MEDICARE PART A B [facility] Discharge Summary D/C summary: [...] Progress: Goal Met Plan Plan: Discharge to gym routine D/C Information d/c sentence: If there are questions or concerns regarding this patient's physical therapy, please feel free to call me at [phone]. Thank you for the referral of this patient. Sincerely, Sonu Mast, PT, ATC Balance/Gait/Functional tests Balance/Special Test Scores Lower Extremity Functional Score: 27 WOMAC Total Score: 20 WOMAC Percentage: 79.1700 Improvement % Improvement: 90 12/04/24 1233 CC: Dr. Daniel Lim MD; Dr. Saqib Juárez MD [facility] Signed [facility] Urine Cultureon 12-03-2024 URC Presumptive E. coli [place] Count >100,000 Presumptive E. coli: REACTION Ampicillin [...] SMX Islt DEBORA <=20 S [facility] Comment on above: Performed By: #### M 100.4535 #### [facility] [address] [place], [place], [id number] Laboratory - Chemistry and C hemistry - challengeOrdered By: Deondre Philip on 12-01-2024 Bilirubin Ql (U) Negative [facility] Glucose Ql (U) Negative [facility] Ketones Ql (U) Trace (5) [facility] pH (U) 6.5 [pH] [facility] Specific gravity (U) [Rel density] 1.015 [facility] Urobilinogen (U) [Mass/Vol] 1 mg/dL [facility] - Hematology and Cell countsOrdered By: Deondre Philip on 12-01-2024 Hemoglobin Ql (U) Negative [facility] - Specimen inform ationOrdered By: Deondre Philip on 12-01-2024 Clarity (U) Clear [facility] Color (U) Yellow [facility] - UrinalysisOrder ed By: Deondre Philip on 12-01-2024 Nitrite Ql (U) Positive [facility] Protein Ql (U) Trace [facility] No Panel InformationOrdered By: Deondre Philip on 12-01-2024 Urine Leukocytes Positive [facility] Comment on above: moderate Urine Non-Hemolyzed Blood Negative [facility] Urgent Care Visit Reporton 0 12-01-2024 Urgent Care Visit Report [facility] [address] , [address] [place] [id number] OFFICE VISIT Date of Service: 12/01/24 MR#: [id number] Acct: [id number] Name: KARYN MULLER Rep #: [id number] : 1945 Provider: ROBLES Bañuelos Age/Sex: 79/F Location: [facility] Status: Signed Intake Vital Signs 08/31/24 11:12 [...] has been going on for 3.5 days. 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 [facility] Urine cultureOrdered By: Larry Philip on 12-01-2024 Bacteria identified Cx Nom (U) Presumptive E. coli Abnormal [facility] Inital Evaluation (1) - PTon 11-04-2024 Inital Evaluation (1) - PT [facility] [address] [place] [address] / REHABILITATION SERVICES INITIAL EVALUATION MR#: [id number] Acct: [id number] Name: KARYN MULLER Rep #: [id number] : 1945 79 From: Sonu Mast PT, ATC Referring Dr.: Dr. 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 2/10 pain while sitting here [...] to be FAXED BACK to us at [phone] for Medicare purposes. For Medicare only, by signing this I certify the plan of care. Please let me know if there are questions or concerns regarding this plan of care. Physician Signature: Date: 11/04/24 1429 CC: Dr. Daniel Lim MD; Dr. Saqib Juárez MD [facility] Signed Normal [facility] Cardiology Visit Reporton Cardiology Visit Report [facility] [address] [place], [place] [address]. [address] [place] [address] OFFICE VISIT Date of Service: 08/31/24 MR#: [id number] Acct: [id number] Name: KARYN MULLER Rep #: [id number] : 1945 Provider: ROE portillo Age/Sex: 79/F Location: [facility] Status: Signed HPI HPI History of Present Illness Details: This is a 79-year-old female who presents for a cardiovascular outpatient follow-up. 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 Sutherland. Prior [...] room air Intake Visit Reasons: 6 M Rag Willow Operator Required: No Is patient in pain?: No [...] Ellipta) trazodone 100 mg tablet 50 mg (2 x 100 mg) PO QHS PRN 06/15/24 [...] got home BP 190/80's. Gradually went down. [facility] Medical History Pruritus Preop exam for internal medicine Wears hearing aid Wears glasses Alcohol use Low iron Restless legs Heartburn CPAP (continuous positive airway pressure) dependence F (more content not included)... Normal [facility] MR/BMS[facility] 08-17-2024 MR/BMS.B [facility] [address] [facility] [place] [address] OFFICE VISIT Date of Service: 08/17/24 MR#: [id number] Acct: [id number] Name: KARYN MULLER Rep #: [id number] : 1945 Provider: Dr. Saqib joya MD Age/Sex: 79/F Location: [facility] Status: Signed with Addenda ADDENDUM by Dr. Saqib Juárez MD on 09/17/24 at 0957 HPI Details: KARYN MULLER, is a 79 F who presents to the office today for Assessment and Plan Assessment and Plan (1) Preop exam for internal medicine: Status: Acute (2) History of coronary artery stent placement: Status: Acute Comment: YNN-YPM-Bdhr LAD at D2 bifurcation w/ 3.5 x 18 mm [facility] Stent and POBA-D2 03/02/22; (3) Nonrheumatic aortic (valve) stenosis: Status: Chronic (4) H/O aortic valve replacement: Status: Chronic Comment: # 21 Trifecta Valve @ [facility] Dr Sutherland (5) Essential (primary) hypertension: Status: [...] be having total knee replacement, Dr. Lim, [facility] on October 07, 2024. At this time I have no specific reason why she cannot proceed to surgery. She is previously already for this surgery, had cardiac clearance. EKG from [facility], dated 09/16/2024 shows old age-indeterminate anteroseptal infarct, similar to her previous EKGs. At last visit, she had no new untoward symptoms concerning for obstructive coronary disease, or any other acute issues. At this point in time she may proceed to surgery. 09/17/24 0957 Date Saqib Juáerz MD cc: * Signed Intake Vital Signs [...] Intake Visit Reasons: Rash Chief Complaint: rash Rag Willow Operator Required: No Accompanied by: Self Is patient [...] past year?: No PFSH Medical History (Updated 08/17/24 @ 16:[address] Saqib Juárez MD) Pruritus Preop exam for internal medicine Wears hearing aid Wears glasses Alcohol use Low iron Restless legs Heartburn CPAP (continuous posit (more content not included)... [facility] PT D/C Summary (1)on 024 PT D/C Summary (1) [facility] [address] [facility] [place] [address] / REHABILITATION SERVICES DISCHARGE SUMMARY MR#: [id number] Acct: [id number] Name: KARYN MULLER Rep #: [id number] : 1945 78 From: Benny Bird DPT, OCS, CSCS Referring Dr.: Dr. Obed Medina DO Status: R EG RCR Insurance: MEDICARE PART A B [facility] Discharge Summary D/C summary: It has [...] doing well and will get back to [facility] after her recent [place] vacation and feels like she can do [...] please feel free to call me at [phone]. Thank you for the referral of this patient. Sincerely, Benny Bird, DPT, OCS, CSCS Balance/Gait/Functional tests Balance/Special Test Scores Lower Extremity Functional Score: 42 Improvement % Improvement: 40 07/13/24 0929 CC: Dr. Obed Medina, DO; Dr. Saqib Juárez MD [facility] Signed Normal [facility] Absolute lymphocyte countOrd ered By: Saqib Juárez on 02-03-2024 Lymphocytes Auto (Unsp spec) [#/Vol] 1.37 10*3/uL 0.83-4.51 [facility] Automated lymphocyte count a s percentage of total leukocytesOrdered By: Saqib Juárez on 02-03-2024 Lymphocytes/100 WBC Auto (Unsp spec) 20.0 % 19-41 [facility] Basophil percentageOrdered B y: Saqib Juárez on 02-03-2024 Basophils/100 WBC (Bld) 0.4 % 0-1 [facility] Bilirubin [Mass/Vol] 0.40 mg/dL 0.20-1.00 [facility] Comment on above: For patients on eltr ombopag therapy, use of [place] [place] TBIL is not recommended. Chloride [Moles/Vol] 98 mmol/L 98-107 [facility] Cholesterol [Mass/Vol] 176 mg/dL <200 [facility] Comment on above: <200 mg/dL Desirable 200-240 mg/dL Borderline >240 mg/dL High Risk Eosinophils/100 WBC (Bld) 3.6 % 0-5 [facility] Glucose [Mass/Vol] 141 mg/dL 74-106 [facility] Comment on above: Fasting Glucose resu lt greater than or equal to 126 mg/dL suggests DIABETES MELLITUS per A.D.A. criteria. Hemoglobin (Bld) [Mass/Vol] 12.4 g/dL 12.0-15.0 [facility] Monocytes/100 WBC (Bld) 10.6 % 0-10 [facility] Neutrophils (Bld) [#/Vol] 4.5 10*3/uL 2.0-7.7 [facility] Neutrophils/100 WBC (Bld) 65.0 % 47-70 [facility] Potassium [Moles/Vol] 3.8 mmol/L 3.5-5.1 [facility] Protein [Mass/Vol] 7.1 g/dL 6.4-8.2 [facility] Sodium [Moles/Vol] 133 mmol/L 136-145 [facility] Triglyceride [Mass/Vol] 151 mg/dL <199 [facility] Comment on above: The drugs N-Acetylcy steine and Metamizole may falsely depress this assay.Serum Triglycerides Reference Interval Normal <150 mg/dL Borderline high 150 - 199 mg/dL High 200 - 499 mg/dL Very High > or = 500 mg/dL WBC (Bld) [#/Vol] 6.9 10*3/uL 4.4-11.0 [facility] Determination of erythrocyte mean corpuscular volume (MCV)Ordered By: Saqib Juárez on 02-03-2024 MCV (RBC) [Entitic vol] 92.6 fL 81-99 [facility] Erythrocyte distribution wid th ratioOrdered By: Saqib Juárez on 02-03-2024 Erythrocyte distribution width (RBC) [Ratio] 13.1 % 11.6-14.6 [facility] Erythrocyte distribution wid th standard deviationOrdered By: Saqib Juárez on 02-03-2024 Erythrocyte distribution width (RBC) [Entitic vol] 44.0 fL 35.1-43.9 [facility] Hematocrit Auto (Bld) [Volum e fraction]Ordered By: Saqib Juárez on 02-03-2024 Hematocrit (Bld) [Volume fraction] 37.7 % 37-47 [facility] Immature granulocytes/100 WB C Auto (Bld)Ordered By: Saqib Juárez on 02-03-2024 Immature granulocytes/100 WBC (Bld) 0.400 % 0.0-0.9 [facility] Comment on above: IG% - Immature Granu locytes (promyelocytes, myelocytes and metamyelocytes) > 1% indicates that a LEFT SHIFT is Present. Laboratory - Chemistry and C hemistry - challengeOrdered By: Saqib Juárez on 02-03-2024 Albumin/Globulin [Mass ratio] 1.1 {ratio} 0.9-2.4 [facility] ALP [Catalytic activity/Vol] 67 U/L 45-117 [facility] ALT [Catalytic activity/Vol] 26 U/L 13-56 [facility] Cholesterol in HDL [Mass/Vol] 60 mg/dL >40 [facility] Comment on above: The drugs N-Acetylcy steine and Metamizole may falsely depress this assay. Reference Range HDL <40 mg/dL Low HDL Cholesterol HDL >or= 60 mg/dL High HDL Cholesterol Cholesterol in LDL [Mass/Vol] 86 mg/dL 0-130 [facility] CO2 [Moles/Vol] 26.0 mmol/L 21.0-32.0 [facility] Globulin (S) [Mass/Vol] 3.4 g/dL 2.2-4.2 [facility] Urea nitrogen/Creatinine [Mass ratio] 22.7 mg/mg 10-20 [facility] - Hematology and Cell countsOrdered By: Saqib Juárez on 02-03-2024 MCH (RBC) [Entitic mass] 30.5 pg 27.0-32.0 [facility] MCHC (RBC) [Mass/Vol] 32.9 g/dL 32-36 [facility] Nucleated RBC/100 WBC (Bld) [Ratio] 0 % 0-5 [facility] Platelet mean volume (Bld) [Entitic vol] 8.8 fL 6.2-12.0 [facility] Platelets (Bld) [#/Vol] 292 10*3/uL 150-450 [facility] No Panel InformationOrdered By: Saqib Juárez on 02-03-2024 Estimated GFR (MDRD) Amer 90 mL/min >60 [facility] Comment on above: GFR Calc Estimated GFR (MDRD) Non-Af Amer 74 mL/min >60 [facility] Comment on above: Non- GFR Calc Vitamin D 25-Hydroxy 33.6 ng/mL [facility] Comment on above: Vitamin D 25(OH) Sta tus Range Deficiency <20 ng/mL (50nmol/L) Insufficiency 20 - 30 ng/mL (50 - 75 nmol/L) Sufficiency 30 - 100 ng/mL (75 - 250 nmol/L) Toxicity >100 ng/mL (>250 nmol/L) VLDL Cholesterol 30 mg/dL 5-40 [facility] RBC Auto (Bld) [#/Vol]Ordere d By: Saqib Juárez on 02-03-2024 RBC (Bld) [#/Vol] 4.07 10*6/uL 4.2-5.4 [facility] Serum or plasma calcium loretta urement (mass/volume)Ordered By: Saqib Juárez on 02-03-2024 Calcium [Mass/Vol] 9.2 mg/dL 8.5-10.1 [facility] Serum or plasma creatinine m easurement (mass/volume)Ordered By: Saqib Juárez on 02-03-2024 Creatinine [Mass/Vol] 0.79 mg/dL 0.55-1.02 [facility] Comment on above: The validity of the calculated GFR & GFRAA in patients over 70 years has not been determined. Clinical correlation is essential. Serum or plasma thyroid stim ulating hormone (TSH) measurement (units/volume)Ordered By: Saqib Juárez on 02-03-2024 TSH Qn 1.86 uIU/mL 0.358-3.74 [facility] Serum or plasma urea nitroge n measurement (mass/volume)Ordered By: Saqib Juárez on 02-03-2024 Urea nitrogen [Mass/Vol] 18 mg/dL 7-18 [facility] Thin prep Papanicolaou smear with manual screeningOrdered By: Saqib Juárez on 02-03-2024 Thin prep Papanicolaou smear with manual screening 3.7 g/dL 3.2-5.0 [facility] Thin prep Papanicolaou smear with manual screening 18 U/L 15-37 [facility] Thin prep Papanicolaou smear with manual screening 9 5-15 [facility] Whole blood hemoglobin A1c/t otal hemoglobin ratio (mass fraction)Ordered By: Saqib Juárez on 02-03-2024 HbA1c (Bld) [Mass fraction] 6.6 % 3.8-5.6 [facility] Comment on above: Normal < 5.7 % Predi abetic 5.7 - 6.4 % Diabetic >or= 6.5 % Please note range changes. Absolute lymphocyte countOrd ered By: Rose Díaz on 01-31-2024 Lymphocytes Auto (Unsp spec) [#/Vol] 1.29 10*3/uL 0.83-4.51 [facility] Automated lymphocyte count a s percentage of total leukocytesOrdered By: Rose Díaz on 01-31-2024 Lymphocytes/100 WBC Auto (Unsp spec) 19.3 % 19-41 [facility] Basophil percentageOrdered B y: Rose Díaz on 01-31-2024 Basophils/100 WBC (Bld) 0.6 % 0-1 [facility] Chloride [Moles/Vol] 100 mmol/L 98-107 [facility] Eosinophils/100 WBC (Bld) 4.2 % 0-5 [facility] Glucose [Mass/Vol] 123 mg/dL 74-106 [facility] Comment on above: Fasting Glucose resu lt from 100 to 125 mg/dL suggests IMPAIRED HOMEOSTASIS per A.D.A. criteria. Hemoglobin (Bld) [Mass/Vol] 11.9 g/dL 12.0-15.0 [facility] Monocytes/100 WBC (Bld) 12.0 % 0-10 [facility] Neutrophils (Bld) [#/Vol] 4.2 10*3/uL 2.0-7.7 [facility] Neutrophils/100 WBC (Bld) 63.3 % 47-70 [facility] Potassium [Moles/Vol] 3.7 mmol/L 3.5-5.1 [facility] Sodium [Moles/Vol] 134 mmol/L 136-145 [facility] WBC (Bld) [#/Vol] 6.7 10*3/uL 4.4-11.0 [facility] Determination of erythrocyte mean corpuscular volume (MCV)Ordered By: Rose Díaz on 01-31-2024 MCV (RBC) [Entitic vol] 92.5 fL 81-99 [facility] Erythrocyte distribution wid th ratioOrdered By: Rose Díaz on 01-31-2024 Erythrocyte distribution width (RBC) [Ratio] 13.1 % 11.6-14.6 [facility] Erythrocyte distribution wid th standard deviationOrdered By: Rose Díaz on 01-31-2024 Erythrocyte distribution width (RBC) [Entitic vol] 44.0 fL 35.1-43.9 [facility] Hematocrit Auto (Bld) [Volum e fraction]Ordered By: Rose Díaz on 01-31-2024 Hematocrit (Bld) [Volume fraction] 35.9 % 37-47 [facility] Immature granulocytes/100 WB C Auto (Bld)Ordered By: Rose Díaz on 01-31-2024 Immature granulocytes/100 WBC (Bld) 0.600 % 0.0-0.9 [facility] Comment on above: IG% - Immature Granu locytes (promyelocytes, myelocytes and metamyelocytes) > 1% indicates that a LEFT SHIFT is Present. Laboratory - Chemistry and C hemistry - challengeOrdered By: Rose Díaz on 01-31-2024 CO2 [Moles/Vol] 29.0 mmol/L 21.0-32.0 [facility] Urea nitrogen/Creatinine [Mass ratio] 24.7 mg/mg 10-20 [facility] - Hematology and Cell countsOrdered By: Rose Díaz on 01-31-2024 MCH (RBC) [Entitic mass] 30.7 pg 27.0-32.0 [facility] MCHC (RBC) [Mass/Vol] 33.1 g/dL 32-36 [facility] Nucleated RBC/100 WBC (Bld) [Ratio] 0 % 0-5 [facility] Platelet mean volume (Bld) [Entitic vol] 9.2 fL 6.2-12.0 [facility] Platelets (Bld) [#/Vol] 301 10*3/uL 150-450 [facility] No Panel InformationOrdered By: Rose Díaz on 01-31-2024 Estimated GFR (MDRD) Amer 113 mL/min >60 [facility] Comment on above: GFR Calc Estimated GFR (MDRD) Non-Af Amer 94 mL/min >60 [facility] Comment on above: Non- GFR Calc RBC Auto (Bld) [#/Vol]Ordere d By: Rose Díaz on 01-31-2024 RBC (Bld) [#/Vol] 3.88 10*6/uL 4.2-5.4 [facility] Serum or plasma calcium loretta urement (mass/volume)Ordered By: Rose Díaz on 01-31-2024 Calcium [Mass/Vol] 9.8 mg/dL 8.5-10.1 [facility] Serum or plasma creatinine m easurement (mass/volume)Ordered By: Rose Díaz on 01-31-2024 Creatinine [Mass/Vol] 0.65 mg/dL 0.55-1.02 [facility] Comment on above: The validity of the calculated GFR & GFRAA in patients over 70 years has not been determined. Clinical correlation is essential. Serum or plasma thyroid stim ulating hormone (TSH) measurement (units/volume)Ordered By: Rose Díaz on 01-31-2024 TSH Qn 1.48 uIU/mL 0.358-3.74 [facility] Serum or plasma urea nitroge n measurement (mass/volume)Ordered By: Rose Díaz on 01-31-2024 Urea nitrogen [Mass/Vol] 16 mg/dL 7-18 [facility] Thin prep Papanicolaou smear with manual screeningOrdered By: Rose Díaz on 01-31-2024 Thin prep Papanicolaou smear with manual screening 5 5-15 [facility] Basophil percentageon 2021 Bilirubin [Mass/Vol] 0.40 mg/dL 0.20-1.00 [facility] Work Phone: Comment on above: For patients on eltr ombopag therapy, use of [place] TBIL is not recommended. Cholesterol [Mass/Vol] 171 mg/dL <200 [facility] Work Phone: Comment on above: <200 mg/dL Desirable 200-240 mg/dL Borderline >240 mg/dL High Risk Protein [Mass/Vol] 7.2 g/dL 6.4-8.2 [facility] Work Phone: [phone] Triglyceride [Mass/Vol] 141 mg/dL <199 [facility] Work Phone: [phone] Comment on above: The drugs N-Acetylcy steine and Metamizole may falsely depress this assay.Serum Triglycerides Reference Interval Normal <150 mg/dL Borderline high 150 - 199 mg/dL High 200 - 499 mg/dL Very High > or = 500 mg/dL Direct bilirubinon Bilirubin.direct [Mass/Vol] 0.13 mg/dL 0.00-0.30 [facility] Work Phone: Laboratory - Chemistry and C hemistry - challengeon 03-19-2022 ALP [Catalytic activity/Vol] 62 U/L 45-117 [facility] Work Phone: ALT [Catalytic activity/Vol] 28 U/L 13-56 [facility] Work Phone: [phone] Globulin (S) [Mass/Vol] 3.4 g/dL 2.2-4.2 [facility] Work Phone: Serum or plasma albumin loretta urement (mass/volume)on 03-19-2022 Albumin [Mass/Vol] 3.8 g/dL 3.2-5.0 [facility] Work Phone: Serum or plasma cholesterol in HDL measurement (mass/volume)on 03-19-2022 Cholesterol in HDL [Mass/Vol] 67 mg/dL >40 [facility] Work Phone: Comment on above: The drugs N-Acetylcy steine and Metamizole may falsely depress this assay. Reference Range HDL <40 mg/dL Low HDL Cholesterol HDL >or= 60 mg/dL High HDL Cholesterol Serum or plasma cholesterol in VLDL measurement (mass/volume)on 03-19-2022 Cholesterol in VLDL [Mass/Vol] 28 mg/dL 5-40 [facility] Work Phone: [phone] Serum or plasma low density lipoprotein (LDL) cholesterol measurement (mass/volume)on 03-19-2022 Cholesterol in LDL [Mass/Vol] 76 mg/dL 0-130 [facility] Work Phone: Thin prep Papanicolaou smear with manual screeningon 03-19-2022 Thin prep Papanicolaou smear with manual screening 18 U/L 15-37 [facility] Work Phone: Basophil percentageon 2021 Bilirubin [Mass/Vol] 0.30 mg/dL 0.20-1.00 [facility] Work Phone: Comment on above: For patients on eltr ombopag therapy, use of [place] [place] TBIL is not recommended. Chloride [Moles/Vol] 101 mmol/L 98-107 [facility] Work Phone: [phone] Glucose [Mass/Vol] 129 mg/dL 74-106 [facility] Work Phone: [phone] Comment on above: Fasting Glucose resu lt greater than or equal to 126 mg/dL suggests DIABETES MELLITUS per A.D.A. criteria. Potassium [Moles/Vol] 3.7 mmol/L 3.5-5.1 [facility] Work Phone: [phone] Protein [Mass/Vol] 6.8 g/dL 6.4-8.2 [facility] Work Phone: [phone] Sodium [Moles/Vol] 136 mmol/L 136-145 [facility] Work Phone: [phone] WBC (Bld) [#/Vol] 7.8 10*3/uL 4.4-11.0 [facility] Work Phone: [phone] Blood erythrocytes count (nu mber/volume)on 03-03-2022 RBC (Bld) [#/Vol] 3.99 10*6/uL 4.2-5.4 [facility] Work Phone: [phone] Blood hemoglobin measurement (mass/volume)on 03-03-2022 Hemoglobin (Bld) [Mass/Vol] 12.4 g/dL 12.0-15.0 [facility] Work Phone: [phone] Blood platelet mean volumeon 03-03-2022 Platelet mean volume (Bld) [Entitic vol] 8.9 fL 6.2-12.0 [facility] Work Phone: [phone] Determination of erythrocyte mean corpuscular volume (MCV)on 03-03-2022 MCV (RBC) [Entitic vol] 94.7 fL 81-99 [facility] Work Phone: [phone] Hematocrit Auto (Bld) [Volum e fraction]on 03-03-2022 Hematocrit (Bld) [Volume fraction] 37.8 % 37-47 [facility] Work Phone: Laboratory - Chemistry and C hemistry - challengeon 03-03-2022 ALP [Catalytic activity/Vol] 50 U/L 45-117 [facility] Work Phone: [phone] ALT [Catalytic activity/Vol] 29 U/L 13-56 [facility] Work Phone: [phone] CO2 [Moles/Vol] 28.0 mmol/L 21.0-32.0 [facility] Work Phone: [phone] Globulin (S) [Mass/Vol] 3.3 g/dL 2.2-4.2 [facility] Work Phone: [phone] Urea nitrogen/Creatinine [Mass ratio] 24.3 mg/mg 10-20 [facility] Work Phone: [phone] Laboratory - Hematology and Cell countson 03-03-2022 Erythrocyte distribution width (RBC) [Entitic vol] 43.3 fL 35.1-43.9 [facility] Work Phone: [phone] Erythrocyte distribution width (RBC) [Ratio] 12.4 % 11.6-14.6 [facility] Work Phone: [phone] MCH (RBC) [Entitic mass] 31.1 pg 27.0-32.0 [facility] Work Phone: [phone] MCHC Auto (RBC) [Mass/Vol]on 03-03-2022 MCHC (RBC) [Mass/Vol] 32.8 g/dL 32-36 [facility] Work Phone: [phone] No Panel Informationon 03-03 Estimated Creatinine Clearance Calc 38.35 ml/min [facility] Work Phone: Estimated GFR (MDRD) Amer 104 mL/min >60 [facility] Work Phone: [phone] Comment on above: GFR Calc Estimated GFR (MDRD) Non-Af Amer 86 mL/min >60 [facility] Work Phone: Comment on above: Non- GFR Calc Platelets bldon 03-03-2022 Platelets (Bld) [#/Vol] 282 10*3/uL 150-450 [facility] Work Phone: Serum or plasma albumin loretta urement (mass/volume)on 03-03-2022 Albumin [Mass/Vol] 3.5 g/dL 3.2-5.0 [facility] Work Phone: [phone] Serum or plasma albumin/glob ulin mass ratioon 03-03-2022 Albumin/Globulin [Mass ratio] 1.1 {ratio} 0.9-2.4 [facility] Work Phone: [phone] Serum or plasma calcium loretta urement (mass/volume)on 03-03-2022 Calcium [Mass/Vol] 9.0 mg/dL 8.5-10.1 [facility] Work Phone: Serum or plasma creatinine m easurement (mass/volume)on 03-03-2022 Creatinine [Mass/Vol] 0.70 mg/dL 0.55-1.02 [facility] Work Phone: Comment on above: The validity of the calculated GFR & GFRAA in patients over 70 years has not been determined. Clinical correlation is essential. Serum or plasma urea nitroge n measurement (mass/volume)on 03-03-2022 Urea nitrogen [Mass/Vol] 17 mg/dL 7-18 [facility] Work Phone: Thin prep Papanicolaou smear with manual screeningon 03-03-2022 Thin prep Papanicolaou smear with manual screening 18 U/L 15-37 [facility] Work Phone: [phone] Thin prep Papanicolaou smear with manual screening 7 5-15 [facility] Work Phone: [phone] Absolute lymphocyte counton 02-22-2022 Lymphocytes Auto (Unsp spec) [#/Vol] 1.39 10*3/uL 0.83-4.51 [facility] Work Phone: Basophil percentageon 2021 Basophils/100 WBC (Bld) 0.4 % 0-1 [facility] Work Phone: Chloride [Moles/Vol] 98 mmol/L 98-107 [facility] Work Phone: Eosinophils/100 WBC (Bld) 2.3 % 0-5 [facility] Work Phone: Glucose [Mass/Vol] 112 mg/dL 74-106 [facility] Work Phone: Comment on above: Fasting Glucose resu lt from 100 to 125 mg/dL suggests IMPAIRED HOMEOSTASIS per A.D.A. criteria. Neutrophils (Bld) [#/Vol] 4.8 10*3/uL 2.0-7.7 [facility] Work Phone: Neutrophils/100 WBC (Bld) 67.4 % 47-70 [facility] Work Phone: Potassium [Moles/Vol] 3.6 mmol/L 3.5-5.1 [facility] Work Phone: Sodium [Moles/Vol] 135 mmol/L 136-145 [facility] Work Phone: WBC (Bld) [#/Vol] 7.1 10*3/uL 4.4-11.0 [facility] Work Phone: Blood erythrocytes count (nu mber/volume)on 02-22-2022 RBC (Bld) [#/Vol] 4.19 10*6/uL 4.2-5.4 [facility] Work Phone: Blood hemoglobin measurement (mass/volume)on 02-22-2022 Hemoglobin (Bld) [Mass/Vol] 13.2 g/dL 12.0-15.0 [facility] Work Phone: Blood lymphocytes/100 leukoc yteson 02-22-2022 Lymphocytes/100 WBC (Bld) 19.7 % 19-41 [facility] Work Phone: Blood monocytes/100 leukocyt eson 02-22-2022 Monocytes/100 WBC (Bld) 9.6 % 0-10 [facility] Work Phone: Blood platelet mean volumeon 02-22-2022 Platelet mean volume (Bld) [Entitic vol] 9.0 fL 6.2-12.0 [facility] Work Phone: [phone] Determination of erythrocyte mean corpuscular volume (MCV)on 02-22-2022 MCV (RBC) [Entitic vol] 93.8 fL 81-99 [facility] Work Phone: [phone] Hematocrit Auto (Bld) [Volum e fraction]on 02-22-2022 Hematocrit (Bld) [Volume fraction] 39.3 % 37-47 [facility] Work Phone: [phone] Laboratory - Chemistry and C hemistry - challengeon 02-22-2022 CO2 [Moles/Vol] 30.0 mmol/L 21.0-32.0 [facility] Work Phone: [phone] Urea nitrogen/Creatinine [Mass ratio] 29.6 mg/mg 10-20 [facility] Work Phone: [phone] Laboratory - Hematology and Cell countson 02-22-2022 Erythrocyte distribution width (RBC) [Entitic vol] 44.0 fL 35.1-43.9 [facility] Work Phone: [phone] Erythrocyte distribution width (RBC) [Ratio] 12.7 % 11.6-14.6 [facility] Work Phone: [phone] Immature granulocytes/100 WBC (Bld) 0.600 % 0.0-0.9 [facility] Work Phone: [phone] Comment on above: IG% - Immature Granu locytes (promyelocytes, myelocytes and metamyelocytes) > 1% indicates that a LEFT SHIFT is Present. MCH (RBC) [Entitic mass] 31.5 pg 27.0-32.0 [facility] Work Phone: [phone] Nucleated RBC/100 WBC (Bld) [Ratio] 0 % 0-5 [facility] Work Phone: [phone] MCHC Auto (RBC) [Mass/Vol]on 02-22-2022 MCHC (RBC) [Mass/Vol] 33.6 g/dL 32-36 [facility] Work Phone: [phone] Panel Informationon 02-22 Estimated GFR (MDRD) Amer 92 mL/min >60 [facility] Work Phone: Comment on above: GFR Calc Estimated GFR (MDRD) Non-Af Amer 76 mL/min >60 [facility] Work Phone: Comment on above: Non- GFR Calc Platelets bldon 02-22-2022 Platelets (Bld) [#/Vol] 318 10*3/uL 150-450 [facility] Work Phone: Serum or plasma calcium loretta urement (mass/volume)on 02-22-2022 Calcium [Mass/Vol] 10.0 mg/dL 8.5-10.1 [facility] Work Phone: Serum or plasma creatinine m easurement (mass/volume)on 02-22-2022 Creatinine [Mass/Vol] 0.78 mg/dL 0.55-1.02 [facility] Work Phone: Comment on above: The validity of the calculated GFR & GFRAA in patients over 70 years has not been determined. Clinical correlation is essential. Serum or plasma urea nitroge n measurement (mass/volume)on 02-22-2022 Urea nitrogen [Mass/Vol] 23 mg/dL 7-18 [facility] Work Phone: Thin prep Papanicolaou smear with manual screeningon 02-22-2022 Thin prep Papanicolaou smear with manual screening 7 5-15 [facility] Work Phone: OBSOLETEon 04-04-2021 OBSOLETE Refill (CHARITY) KARYN MULLER ([id number]) 1945 F Date Time Provider Department 04/04/21 [...] valve replacement (more content not included)... Normal [facility] OBSOLETEon 01-10-2021 OBSOLETE Refill (FAMPWS) KARYN MULLER ([id number]) 1945 F Date Time Provider Department 01/10/21 DORI SALAS III During your visit today, we recorded [...] 10/07/2020 Future Appointment: None Patient down in [place] and requesting refills to be sent to [facility]. Last 2 Encounter Wt Readings: Date: Wt: [...] 23 Please advise. Thank you. DOMINIC Hernandez DNP.ANGELICA, FISH BAIT PICKER.DIRECTOR OF CASINO 01/10/2021 4:35 PM Signed The following approved [...] Prescriptions orde (more content not included)... Normal [facility] Office Visiton 08-26-2017 Documentation of current medications (procedure) Done Invalid Interpretation Code [facility] Work Phone: Fall risk assessment No Invalid Interpretation Code [facility] Work Phone: Clinical Lists Update: Prelo clinical trials nurse 08-19-2017 Left ventricular Ejection fraction 60-65 Invalid Interpretation Code [facility] Work Phone: [phone] Lab Report: Lipid Profileon 06-24-2017 Cholesterol 183 mg/dL Invalid Interpretation Code 200 [facility] Work Phone: [phone] HDL Cholesterol 50 mg/dL Invalid Interpretation Code [facility] Work Phone: [phone] LDL Cholesterol 102 mg/dL Invalid Interpretation Code 0-130 [facility] Work Phone: [phone] Triglyceride 153 mg/dL Invalid Interpretation Code [facility] Work Phone: [phone] low density lipoproteins 31 mg/dL Invalid Interpretation Code 5-40 [facility] Work Phone: [phone] Lab Report: Vitamin D,25 Hyd roxyon 06-24-2017 Vitamin D 25-OH 26.8 ng/mL Invalid Interpretation Code [facility] Phone: [phone] Replaced Document: Liver Pro fileon 06-24-2017 Alanine aminotransferase (ALT) 18 U/L Invalid Interpretation Code 12-78 [facility] Work Phone: [phone] Albumin 3.4 g/dL Invalid Interpretation Code 3.4-5.0 [facility] Work Phone: [phone] Alkaline phosphatase (ALP) 75 U/L Invalid Interpretation Code 45-117 [facility] Phone: [phone] Aspartate aminotransferase (AST) 14 U/L Low 15-37 [facility] Work Phone: [phone] Bilirubin (direct) 0.07 mg/dL Invalid Interpretation Code 0.00-0.30 [facility] Work Phone: [phone] Bilirubin (total) 0.20 mg/dL Invalid Interpretation Code 0.20-1.00 [facility] Work Phone: [phone] Globulin 3.5 g/dL Invalid Interpretation Code 2.3-3.5 [facility] Phone: [phone] Protein 6.9 g/dL Invalid Interpretation Code 6.4-8.2 [facility] Phone: [phone] Office Visiton 05-21-2017 Documentation of current medications (procedure) Done Invalid Interpretation Code [facility] Work Phone: [phone] Fall risk assessment No Invalid Interpretation Code [facility] Work Phone: [phone] Clinical Lists Update: Prelo clinical trials nurse 04-29-2017 Left ventricular Ejection fraction 65 % Invalid Interpretation Code [facility] Work Phone: [phone] Tobacco use [facility]PHS Former smoker Invalid Interpretation Code [facility] Work Phone: [phone] Vital Signs Date Time Vital Sign Value Performing Clinician Faci lity 06-16-2025 08:47-0400 Body mass index (BMI) [Ratio] 30.1 kg/m2 Dr. Saqib Juárez MD Work Phone: [facility] 06-16-2025 08:47-0400 Body temperature 97.5 [degF] Dr. Saqib Juárez MD Work Phone: [facility] 06-16-2025 08:47-0400 Body weight 77.[address] Saqib Juárez MD Work Phone: [facility] 06-16-2025 08:47-0400 Diastolic blood pressure 70 mm[Hg] Dr. Saqib Juárez MD Work Phone: [facility] 06-16-2025 08:47-0400 Heart rate 70 /min Dr. Saqib Juárez MD Work Phone: [facility] 06-16-2025 08:47-0400 Respiratory rate 18 /min Dr. Saqib Juárez MD Work Phone: [facility] 06-16-2025 08:47-0400 SaO2% (BldA) [Mass fraction] 93 % Dr. Saqib Juárez MD Work Phone: [facility] 06-16-2025 08:47-0400 Systolic blood pressure 120 mm[Hg] Dr. Saqib Juárez MD Work Phone: [facility] 04-29-2025 11:43-0400 Body height 160.[address] Saqib Juárez MD Work Phone: [facility] 04-29-2025 11:43-0400 Body mass index (BMI) [Ratio] 29.7 kg/m2 Dr. Saqib Juárez MD Work Phone: [facility] 04-29-2025 11:43-0400 Body temperature 99.3 [degF] Dr. Saqib Juárez MD Work Phone: [facility] 04-29-2025 11:43-0400 Body weight 76.[address] Saqib Juárez MD Work Phone: [facility] 04-29-2025 11:43-0400 Diastolic blood pressure 63 mm[Hg] Dr. Saqib Juárez MD Work Phone: [facility] 04-29-2025 11:43-0400 Heart rate 77 /min Dr. Saqib Juárez MD Work Phone: [facility] 04-29-2025 11:43-0400 Respiratory rate 16 /min Dr. Saqib Juárez MD Work Phone: [facility] 04-29-2025 11:43-0400 SaO2% (BldA) [Mass fraction] 94 % Dr. Saqib Juárez MD Work Phone: [facility] 04-29-2025 11:43-0400 Systolic blood pressure 147 mm[Hg] Dr. Saqib Juárez MD Work Phone: [facility] 03-23-2025 14:28-0400 Body height 160.[address] Saqib Juárez MD Work Phone: [facility] 03-23-2025 14:28-0400 Body mass index (BMI) [Ratio] 29.7 kg/m2 Dr. Saqib Juárez MD Work Phone: [facility] 03-23-2025 14:28-0400 Body weight 76.[address] Saqib Juárez MD Work Phone: [facility] 03-23-2025 14:28-0400 Diastolic blood pressure 78 mm[Hg] Dr. Saqib Juárez MD Work Phone: [facility] 03-23-2025 14:28-0400 Heart rate 58 /min Dr. Saqib Juárez MD Work Phone: [facility] 03-23-2025 14:28-0400 Respiratory rate 18 /min Dr. Saqib Juárez MD Work Phone: [facility] 03-23-2025 14:28-0400 Systolic blood pressure 147 mm[Hg] Dr. Saqib Juárez MD Work Phone: [facility] 03-16-2025 08:31-0400 Body mass index (BMI) [Ratio] 29.9 kg/m2 Dr. Saqib Juárez MD Work Phone: [facility] 03-16-2025 08:31-0400 Body temperature 97.1 [degF] Dr. Saqib Juárez MD Work Phone: [facility] 03-16-2025 08:31-0400 Body weight 76.[address] Saqib Juárez MD Work Phone: [facility] 03-16-2025 08:31-0400 Diastolic blood pressure 52 mm[Hg] Dr. Saqib Juárez MD Work Phone: [facility] 03-16-2025 08:31-0400 Heart rate 65 /min Dr. Saqib Juárez MD Work Phone: [facility] 03-16-2025 08:31-0400 Respiratory rate 18 /min Dr. Saqib Juárez MD Work Phone: [facility] 03-16-2025 08:31-0400 SaO2% (BldA) [Mass fraction] 95 % Dr. Saqib Juárez MD Work Phone: [facility] 03-16-2025 08:31-0400 Systolic blood pressure 135 mm[Hg] Dr. Saqib Juárez MD Work Phone: [facility] 12-30-2024 09:42-0400 Body height 160.[address] Saqib Juárez MD Work Phone: [facility] 12-30-2024 09:42-0400 Body mass index (BMI) [Ratio] 29.7 kg/m2 Dr. Saqib Juárez MD Work Phone: [facility] 12-30-2024 09:42-0400 Body temperature 97.8 [degF] Dr. Saqib Juárez MD Work Phone: [facility] 12-30-2024 09:42-0400 Body weight 76.[address] Saqib Juárez MD Work Phone: [facility] 12-30-2024 09:42-0400 Diastolic blood pressure 75 mm[Hg] Dr. Saqib Juárez MD Work Phone: [facility] 12-30-2024 09:42-0400 Heart rate 59 /min Dr. Saqib Juárez MD Work Phone: [facility] 12-30-2024 09:42-0400 Respiratory rate 16 /min Dr. Saqib Juárez MD Work Phone: [facility] 12-30-2024 09:42-0400 SaO2% (BldA) [Mass fraction] 95 % Dr. Saqib Juárez MD Work Phone: [facility] 12-30-2024 09:42-0400 Systolic blood pressure 127 mm[Hg] Dr. Saqib Juárez MD Work Phone: [facility] 12-01-2024 14:34-0500 Body height 160.[address] Saqib Juárez MD Work Phone: [facility] 12-01-2024 14:34-0500 Body mass index (BMI) [Ratio] 29.8 kg/m2 Dr. Saqib Juárez MD Work Phone: [facility] 12-01-2024 14:34-0500 Body temperature 98.1 [degF] Dr. Saqib Juárez MD Work Phone: [facility] 12-01-2024 14:34-0500 Body weight 76.[address] Saqib Juárez MD Work Phone: [facility] 12-01-2024 14:34-0500 Diastolic blood pressure 66 mm[Hg] Dr. Saqib Juárez MD Work Phone: [facility] 12-01-2024 14:34-0500 Heart rate 69 /min Dr. Saqib Juárez MD Work Phone: [facility] 12-01-2024 14:34-0500 SaO2% (BldA) [Mass fraction] 98 % Dr. Saqib Juárez MD Work Phone: [facility] 12-01-2024 14:34-0500 Systolic blood pressure 120 mm[Hg] Dr. Saqib Juárez MD Work Phone: [facility] 08-31-2024 11:12-0500 Body mass index (BMI) [Ratio] 30.1 kg/m2 Dr. Saqib Juárez MD Work Phone: [facility] 08-31-2024 11:12-0500 Body weight 77.[address] Saqib Juárez MD Work Phone: [facility] 08-31-2024 11:12-0500 Diastolic blood pressure 67 mm[Hg] Dr. Saqib Juárez MD Work Phone: [facility] 08-31-2024 11:12-0500 Heart rate 67 /min Dr. Saqib Juárez MD Work Phone: [facility] 08-31-2024 11:12-0500 Respiratory rate 20 /min Dr. Saqib Juárez MD Work Phone: [facility] 08-31-2024 11:12-0500 SaO2% (BldA) [Mass fraction] 97 % Dr. Saqib Juárez MD Work Phone: [facility] 08-31-2024 11:12-0500 Systolic blood pressure 119 mm[Hg] Dr. Saqib Juárez MD Work Phone: [facility] 08-17-2024 13:58-0500 Body mass index (BMI) [Ratio] 30.1 kg/m2 Dr. Saqib Juárez MD Work Phone: [facility] 08-17-2024 13:58-0500 Body temperature 97.8 [degF] Dr. Saqib Juárez MD Work Phone: [facility] 08-17-2024 13:58-0500 Body weight 77.[address] Saqib Juárez MD Work Phone: [facility] 08-17-2024 13:58-0500 Diastolic blood pressure 72 mm[Hg] Dr. Saqib Juárez MD Work Phone: [facility] 08-17-2024 13:58-0500 Heart rate 65 /min Dr. Saqib Juárez MD Work Phone: [facility] 08-17-2024 13:58-0500 Respiratory rate 16 /min Dr. Saqib Juárez MD Work Phone: [facility] 08-17-2024 13:58-0500 SaO2% (BldA) [Mass fraction] 92 % Dr. Saqib Juárez MD Work Phone: [facility] 08-17-2024 13:58-0500 Systolic blood pressure 141 mm[Hg] Dr. Saqib Juárez MD Work Phone: [facility] 02-06-2024 10:01-0400 Body height 160.[address] Saqib Juárez Work Phone: [facility] 02-06-2024 10:01-0400 Body mass index (BMI) [Ratio] 29.7 kg/m2 Dr. Saqib Juárez Work Phone: [facility] 02-06-2024 10:01-0400 Body temperature 98.2 [degF] Dr. Saqib Juárez Work Phone: [facility] 02-06-2024 10:01-0400 Body weight 76.[address] Saqib Juárez Work Phone: [facility] 02-06-2024 10:01-0400 Diastolic blood pressure 77 mm[Hg] Dr. Saqib Juárez Work Phone: [facility] 02-06-2024 10:01-0400 Heart rate 59 /min Dr. Saqib Juárez Work Phone: [facility] 02-06-2024 10:01-0400 Respiratory rate 18 /min Dr. Saqib Juárez Work Phone: [facility] 02-06-2024 10:01-0400 SaO2% (BldA) [Mass fraction] 95 % Dr. Saqib Juárez Work Phone: [facility] 02-06-2024 10:01-0400 Systolic blood pressure 143 mm[Hg] Dr. Saqib Juárez Work Phone: [facility] 05-07-2023 09:35-0400 Body temperature 97.4 [degF] Dr. Saqib Juárez Work Phone: [facility] 05-07-2023 09:35-0400 Diastolic blood pressure 54 mm[Hg] Dr. Saqib Juárez Work Phone: [facility] 05-07-2023 09:35-0400 Heart rate 69 /min Dr. Saqib Juárez Work Phone: [facility] 05-07-2023 09:35-0400 Respiratory rate 16 /min Dr. Saqib Juárez Work Phone: [facility] 05-07-2023 09:35-0400 SaO2% (BldA) [Mass fraction] 92 % Dr. Saqib Juárez Work Phone: [facility] 05-07-2023 09:35-0400 Systolic blood pressure 107 mm[Hg] Dr. Saqib Juárez Work Phone: [facility] 05-07-2023 07:56-0400 Body height 160.[address] Saqib Juárez Work Phone: [facility] 05-07-2023 07:56-0400 Body mass index (BMI) [Ratio] 28.3 kg/m2 Dr. Saqib Juárez Work Phone: [facility] 05-07-2023 07:56-0400 Body weight 72.[address] Saqib Juárez Work Phone: [facility] 04-04-2023 09:47-0400 Body mass index (BMI) [Ratio] 29.7 kg/m2 Dr. Saqib Juárez Work Phone: [facility] 04-04-2023 09:47-0400 Body temperature 97 [degF] Dr. Saqib Juárez Work Phone: [facility] 04-04-2023 09:47-0400 Body weight 76.[address] Saqib Juárez Work Phone: [facility] 04-04-2023 09:47-0400 Diastolic blood pressure 70 mm[Hg] Dr. Saqib Juárez Work Phone: [facility] 04-04-2023 09:47-0400 Heart rate 64 /min Dr. Saqib Juárez Work Phone: [facility] 04-04-2023 09:47-0400 Respiratory rate 17 /min Dr. Saqib Juárez Work Phone: [facility] 04-04-2023 09:47-0400 SaO2% (BldA) [Mass fraction] 93 % Dr. Saqib Juárez Work Phone: [facility] 04-04-2023 09:47-0400 Systolic blood pressure 134 mm[Hg] Dr. Saqib Juárez Work Phone: [facility] 03-14-2023 09:33-0400 Body mass index (BMI) [Ratio] 29.7 kg/m2 Dr. Saqib Juárez Work Phone: [facility] 03-14-2023 09:33-0400 Body temperature 95.3 [degF] Dr. Saqib Juárez Work Phone: [facility] 03-14-2023 09:33-0400 Body weight 76.[address] Saqib Juárez Work Phone: [facility] 03-14-2023 09:33-0400 Diastolic blood pressure 72 mm[Hg] Dr. Saqib Juárez Work Phone: [facility] 03-14-2023 09:33-0400 Heart rate 85 /min Dr. Saqib Juárez Work Phone: [facility] 03-14-2023 09:33-0400 Respiratory rate 20 /min Dr. Saqib Juárez Work Phone: [facility] 03-14-2023 09:33-0400 SaO2% (BldA) [Mass fraction] 96 % Dr. Saqib Juárez Work Phone: [facility] 03-14-2023 09:33-0400 Systolic blood pressure 158 mm[Hg] Dr. Saqib Juárez Work Phone: [facility] 03-12-2023 10:43-0400 Body mass index (BMI) [Ratio] 29.4 kg/m2 Dr. Saqib Juárez Work Phone: [facility] 03-12-2023 10:43-0400 Body weight 75.[address] Saqib Juárez Work Phone: [facility] 03-12-2023 10:43-0400 Diastolic blood pressure 74 mm[Hg] Dr. Saqib Juárez Work Phone: [facility] 03-12-2023 10:43-0400 Heart rate 61 /min Dr. Saqib Juárez Work Phone: [facility] 03-12-2023 10:43-0400 Respiratory rate 18 /min Dr. Saqib Juárez Work Phone: [facility] 03-12-2023 10:43-0400 Systolic blood pressure 150 mm[Hg] Dr. Saqib Juárez Work Phone: [facility] 09-10-2022 14:01-0500 Heart rate 62 /min Dr. aSqib Juárez Work Phone: [facility] Work Phone: 09-10-2022 14:01-0500 Respiratory rate 16 /min Dr. Saqib Juárez Work Phone: [facility] Work Phone: 09-10-2022 14:01-0500 SaO2% (BldA) [Mass fraction] 96 % Dr. Saqib Juárez Work Phone: [facility] Work Phone: 09-10-2022 11:49-0500 Body height 160.[address] Saqib Juárez Work Phone: [facility] Work Phone: 09-10-2022 11:49-0500 Body mass index (BMI) [Ratio] 27.6 kg/m2 Dr. Saqib Juárez Work Phone: [facility] Work Phone: 09-10-2022 11:49-0500 Body temperature 96.6 [degF] Dr. Saqib Juárez Work Phone: [facility] Work Phone: 09-10-2022 11:49-0500 Body weight 70.[address] Saqib Juárez Work Phone: [facility] Work Phone: 09-10-2022 11:49-0500 Diastolic blood pressure 75 mm[Hg] Dr. Saqib Juárez Work Phone: [facility] Work Phone: 09-10-2022 11:49-0500 Systolic blood pressure 103 mm[Hg] Dr. Saqib Juárez Work Phone: [facility] Work Phone: 09-07-2022 13:31-0500 Body mass index (BMI) [Ratio] 29 kg/m2 Dr. Saqib Juárez Work Phone: [facility] Work Phone: 09-07-2022 13:31-0500 Body weight 74.[address] Saqib Juárez Work Phone: [facility] Work Phone: 09-07-2022 13:31-0500 Diastolic blood pressure 80 mm[Hg] Dr. Saqib Juárez Work Phone: [facility] Work Phone: 09-07-2022 13:31-0500 Heart rate 52 /min Dr. Saqib Juárez Work Phone: [facility] Work Phone: 09-07-2022 13:31-0500 Respiratory rate 18 /min Dr. Saqib Juárez Work Phone: [facility] Work Phone: 09-07-2022 13:31-0500 SaO2% (BldA) [Mass fraction] 97 % Dr. Saqib Juárez Work Phone: [facility] Work Phone: 09-07-2022 13:31-0500 Systolic blood pressure 148 mm[Hg] Dr. Saqib Juárez Work Phone: [facility] Work Phone: 09-06-2022 09:27-0500 Body mass index (BMI) [Ratio] 28.8 kg/m2 Dr. Saqib Juárez Work Phone: [facility] Work Phone: 09-06-2022 09:27-0500 Body temperature 96.8 [degF] Dr. Saqib Juárez Work Phone: [facility] Work Phone: 09-06-2022 09:27-0500 Body weight 73.[address] Saqib Juárez Work Phone: [facility] Work Phone: 09-06-2022 09:27-0500 Diastolic blood pressure 54 mm[Hg] Dr. Saqib Juárez Work Phone: [facility] Work Phone: 09-06-2022 09:27-0500 Heart rate 80 /min Dr. Saqib Juárez Work Phone: [facility] Work Phone: 09-06-2022 09:27-0500 Respiratory rate 20 /min Dr. Saqib Juárez Work Phone: [facility] Work Phone: 09-06-2022 09:27-0500 SaO2% (BldA) [Mass fraction] 93 % Dr. Saqib Juárez Work Phone: [facility] Work Phone: 09-06-2022 09:27-0500 Systolic blood pressure 115 mm[Hg] Dr. Saqib Juárez Work Phone: [facility] Work Phone: 07-26-2022 10:52-0400 Body temperature 98.2 [degF] Dr. Saqib Juárez Work Phone: [facility] Work Phone: 07-26-2022 10:52-0400 Body weight 73.[address] Saqib Juárez Work Phone: [facility] Work Phone: 07-26-2022 10:52-0400 Diastolic blood pressure 58 mm[Hg] Dr. Saqib Juárez Work Phone: [facility] Work Phone: 07-26-2022 10:52-0400 Heart rate 72 /min Dr. Saqib Juárez Work Phone: [facility] Work Phone: 07-26-2022 10:52-0400 Respiratory rate 16 /min Dr. Saqib Juárez Work Phone: [facility] Work Phone: 07-26-2022 10:52-0400 SaO2% (BldA) [Mass fraction] 96 % Dr. Saqib Juárez Work Phone: [facility] Work Phone: 07-26-2022 10:52-0400 Systolic blood pressure 118 mm[Hg] Dr. Saqib Juárez Work Phone: [facility] Work Phone: 07-16-2022 08:17-0400 Body weight 73.[address] Saqib Juárez Work Phone: [facility] Work Phone: 06-30-2022 01:31-0400 Body weight 72.[address] Saqib Juárez Work Phone: [facility] Work Phone: 06-28-2022 07:52-0400 Body height 160.[address] Saqib Juárez Work Phone: [facility] Work Phone: 06-28-2022 07:52-0400 Body mass index (BMI) [Ratio] 28.9 kg/m2 Dr. Saqib Juárez Work Phone: [facility] Work Phone: 06-28-2022 07:52-0400 Body temperature 98 [degF] Dr. Saqib Juárez Work Phone: [facility] Work Phone: 06-28-2022 07:52-0400 Body weight 74.[address] Saqib Juárez Work Phone: [facility] Work Phone: 06-28-2022 07:52-0400 Diastolic blood pressure 67 mm[Hg] Dr. Saqib Juárez Work Phone: [facility] Work Phone: 06-28-2022 07:52-0400 Heart rate 61 /min Dr. Saqib Juárez Work Phone: [facility] Work Phone: 06-28-2022 07:52-0400 Respiratory rate 16 /min Dr. Saqib Juárez Work Phone: [facility] Work Phone: 06-28-2022 07:52-0400 SaO2% (BldA) [Mass fraction] 96 % Dr. Saqib Juárez Work Phone: [facility] Work Phone: 06-28-2022 07:52-0400 Systolic blood pressure 146 mm[Hg] Dr. Saqib Juárez Work Phone: [facility] Work Phone: 06-15-2022 07:17-0400 Body weight 72.[address] Saqib Juárez Work Phone: [facility] Work Phone: 05-17-2022 06:13-0400 Body height 160.[address] Saqib Juárez Work Phone: [facility] Work Phone: 05-17-2022 06:13-0400 Body mass index (BMI) [Ratio] 28.5 kg/m2 Dr. Saqib Juárez Work Phone: [facility] Work Phone: 05-17-2022 06:13-0400 Body temperature 98.7 [degF] Dr. Saqib Juárez Work Phone: [facility] Work Phone: 05-17-2022 06:13-0400 Body weight 73.[address] Saqib Juárez Work Phone: [facility] Work Phone: 05-17-2022 06:13-0400 Diastolic blood pressure 70 mm[Hg] Dr. Saqib Juárez Work Phone: [facility] Work Phone: 05-17-2022 06:13-0400 Heart rate 58 /min Dr. Saqib Juárez Work Phone: [facility] Work Phone: 05-17-2022 06:13-0400 Respiratory rate 19 /min Dr. Saqib Juárez Work Phone: [facility] Work Phone: 05-17-2022 06:13-0400 SaO2% (BldA) [Mass fraction] 98 % Dr. Saqib Juárez Work Phone: [facility] Work Phone: 05-17-2022 06:13-0400 Systolic blood pressure 165 mm[Hg] Dr. Saqib Juárez Work Phone: [facility] Work Phone: 04-16-2022 11:32-0400 Body height 160.[address] Saqib Juárez Work Phone: [facility] Work Phone: 04-16-2022 11:32-0400 Body weight 72.[address] Saqib Juárez Work Phone: [facility] Work Phone: 04-16-2022 11:25-0400 Body mass index (BMI) [Ratio] 28.3 kg/m2 Dr. Saqib Juárez Work Phone: [facility] Work Phone: 04-16-2022 11:25-0400 Heart rate 68 /min Dr. Saqib Juárez Work Phone: [facility] Work Phone: 04-16-2022 11:25-0400 SaO2% (BldA) [Mass fraction] 97 % Dr. Saqib Juárez Work Phone: [facility] Work Phone: 03-16-2022 10:04-0400 Body height 160.[address] Saqib Juárez Work Phone: [facility] Work Phone: 03-16-2022 10:04-0400 Body mass index (BMI) [Ratio] 28.3 kg/m2 Dr. Saqib Juárez Work Phone: [facility] Work Phone: 03-16-2022 10:04-0400 Body weight 72.[address] Saqib Juárez Work Phone: [facility] Work Phone: 03-16-2022 10:04-0400 Diastolic blood pressure 64 mm[Hg] Dr. Saqib Juárez Work Phone: [facility] Work Phone: 03-16-2022 10:04-0400 Heart rate 59 /min Dr. Saqib Juárez Work Phone: [facility] Work Phone: 03-16-2022 10:04-0400 Respiratory rate 16 /min Dr. Saqib Juárez Work Phone: [facility] Work Phone: 03-16-2022 10:04-0400 Systolic blood pressure 116 mm[Hg] Dr. Saqib Juárez Work Phone: [facility] Work Phone: 03-08-2022 08:48-0400 Body mass index (BMI) [Ratio] 28.8 kg/m2 Dr. Saqib Juárez Work Phone: [facility] Work Phone: 03-08-2022 08:48-0400 Body temperature 98.1 [degF] Dr. Saqib Juárez Work Phone: [facility] Work Phone: 03-08-2022 08:48-0400 Body weight 73.[address] Saqib Juárez Work Phone: [facility] Work Phone: 03-08-2022 08:48-0400 Diastolic blood pressure 64 mm[Hg] Dr. Saqib Juárez Work Phone: [facility] Work Phone: 03-08-2022 08:48-0400 Heart rate 62 /min Dr. Saqib Juárez Work Phone: [facility] Work Phone: 03-08-2022 08:48-0400 Respiratory rate 20 /min Dr. Saqib Juárez Work Phone: [facility] Work Phone: 03-08-2022 08:48-0400 SaO2% (BldA) [Mass fraction] 94 % Dr. Saqib Juárez Work Phone: [facility] Work Phone: 03-08-2022 08:48-0400 Systolic blood pressure 129 mm[Hg] Dr. Saqib Juárez Work Phone: [facility] Work Phone: 03-03-2022 08:45-0400 Body temperature 97.8 [degF] Dr. Saqib Juárez Work Phone: [facility] Work Phone: 03-03-2022 08:45-0400 Diastolic blood pressure 58 mm[Hg] Dr. Saqib Juárez Work Phone: [facility] Work Phone: 03-03-2022 08:45-0400 Heart rate 72 /min Dr. Saqib Juárez Work Phone: [facility] Work Phone: 03-03-2022 08:45-0400 Respiratory rate 17 /min Dr. Saqib Juárez Work Phone: [facility] Work Phone: 03-03-2022 08:45-0400 SaO2% (BldA) [Mass fraction] 97 % Dr. Saqib Juárez Work Phone: [facility] Work Phone: 03-03-2022 08:45-0400 Systolic blood pressure 114 mm[Hg] Dr. Saqib Juárez Work Phone: [facility] Work Phone: 03-02-2022 09:33-0400 Body height 160.[address] Saqib Juárez Work Phone: [facility] Work Phone: 03-02-2022 09:33-0400 Body weight 72.[address] Saqib Juárez Work Phone: [facility] Work Phone: 03-01-2022 08:40-0400 Body mass index (BMI) [Ratio] 28.3 kg/m2 Dr. Saqib Juárez Work Phone: [facility] Work Phone: 02-22-2022 08:57-0400 Body mass index (BMI) [Ratio] 28.3 kg/m2 Dr. Saqib Juárez Work Phone: [facility] Work Phone: 02-22-2022 08:57-0400 Body weight 72.[address] Saqib Juárez Work Phone: [facility] Work Phone: 02-22-2022 08:57-0400 Diastolic blood pressure 76 mm[Hg] Dr. Saqib Juárez Work Phone: [facility] Work Phone: 02-22-2022 08:57-0400 Heart rate 60 /min Dr. Saqib Juárez Work Phone: [facility] Work Phone: 02-22-2022 08:57-0400 Respiratory rate 16 /min Dr. Saqib Juárez Work Phone: [facility] Work Phone: 02-22-2022 08:57-0400 SaO2% (BldA) [Mass fraction] 98 % Dr. Saqib Juárez Work Phone: [facility] Work Phone: 02-22-2022 08:57-0400 Systolic blood pressure 121 mm[Hg] Dr. Saqib Juárez Work Phone: [facility] Work Phone: 02-22-2022 08:57-0400 Body mass index (BMI) [Ratio] 28.3 kg/m2 Dr. Saqib Juárez Work Phone: [facility] Work Phone: 02-22-2022 08:57-0400 Body weight 72.[address] Saqib Juárez Work Phone: [facility] Work Phone: 02-22-2022 08:57-0400 Diastolic blood pressure 76 mm[Hg] Dr. Saqib Juárez Work Phone: [facility] Work Phone: 02-22-2022 08:57-0400 Heart rate 60 /min Dr. Saqib Juárez Work Phone: [facility] Work Phone: 02-22-2022 08:57-0400 Respiratory rate 16 /min Dr. Saqib Juárez Work Phone: [facility] Work Phone: 02-22-2022 08:57-0400 SaO2% (BldA) [Mass fraction] 98 % Dr. Saqib Juárez Work Phone: [facility] Work Phone: 02-22-2022 08:57-0400 Systolic blood pressure 121 mm[Hg] Dr. Saqib Juárez Work Phone: [facility] Work Phone: 02-19-2022 15:12-0400 Body mass index (BMI) [Ratio] 28.3 kg/m2 Dr. Saqib Juárez Work Phone: [facility] Work Phone: 02-19-2022 15:12-0400 Body temperature 96.3 [degF] Dr. Saqib Juárez Work Phone: [facility] Work Phone: 02-19-2022 15:12-0400 Body weight 72.[address] Saqib Juárez Work Phone: [facility] Work Phone: 02-19-2022 15:12-0400 Diastolic blood pressure 68 mm[Hg] Dr. Saqib Juárez Work Phone: [facility] Work Phone: 02-19-2022 15:12-0400 Heart rate 72 /min Dr. Saqib Juárez Work Phone: [facility] Work Phone: 02-19-2022 15:12-0400 Respiratory rate 14 /min Dr. Saqib Juárez Work Phone: [facility] Work Phone: 02-19-2022 15:12-0400 SaO2% (BldA) [Mass fraction] 96 % Dr. Saqib Juárez Work Phone: [facility] Work Phone: 02-19-2022 15:12-0400 Systolic blood pressure 132 mm[Hg] Dr. Saqib Juárez Work Phone: [facility] Work Phone: 02-19-2022 15:12-0400 Body mass index (BMI) [Ratio] 28.3 kg/m2 Dr. Saqib Juárez Work Phone: [facility] Work Phone: 02-19-2022 15:12-0400 Body temperature 96.3 [degF] Dr. Saqib Juárez Work Phone: [facility] Work Phone: 02-19-2022 15:12-0400 Body weight 72.[address] Saqib Juárez Work Phone: [facility] Work Phone: 02-19-2022 15:12-0400 Diastolic blood pressure 68 mm[Hg] Dr. Saqib Juárez Work Phone: [facility] Work Phone: 02-19-2022 15:12-0400 Heart rate 72 /min Dr. Saqib Juárez Work Phone: [facility] Work Phone: 02-19-2022 15:12-0400 Respiratory rate 14 /min Dr. Saqib Juárez Work Phone: [facility] Work Phone: 02-19-2022 15:12-0400 SaO2% (BldA) [Mass fraction] 96 % Dr. Saqib Juárez Work Phone: [facility] Work Phone: 02-19-2022 15:12-0400 Systolic blood pressure 132 mm[Hg] Dr. Saqib Juárez Work Phone: [facility] Work Phone: 08-26-2017 09:38-0500 BMI (Body Mass Index) 25.92 kg/m2 [facility] Work Phone: 08-26-2017 09:38-0500 BP Diastolic 60 mm[Hg] [facility] Work Phone: 08-26-2017 09:38-0500 BP Systolic 124 mm[Hg] [facility] Work Phone: 08-26-2017 09:38-0500 Height 162.56 cm [facility] Work Phone: 08-26-2017 09:38-0500 Pulse (Heart Rate) 66 /min [facility] Work Phone: 08-26-2017 09:38-0500 Respiratory Rate 16 /min [facility] Work Phone: 08-26-2017 09:38-0500 Weight 68.49 kg [facility] Work Phone: 05-21-2017 15:38-0400 BMI (Body Mass Index) 25.4 kg/m2 Evelin Kulkarni [facility] Work Phone: 05-21-2017 15:38-0400 BP Diastolic 66 mm[Hg] Evelin Kulkarni RN [facility] Work Phone: 05-21-2017 15:38-0400 BP Systolic 120 mm[Hg] Evelin Kulkarni RN [facility] Work Phone: 05-21-2017 15:38-0400 Height 162.56 cm Evelin Kulkarni RN [facility] Work Phone: 05-21-2017 15:38-0400 Pulse (Heart Rate) 68 /min Evelin Kulkarni RN [facility] Work Phone: 05-21-2017 15:38-0400 Respiratory Rate 18 /min Evelin Kulkarni RN [facility] Work Phone: 05-21-2017 15:38-0400 Weight 67.13 kg Evelin Kulkarni RN [facility] Work Phone: 05-07-2017 12:53-0400 Body Temperature 99.2 [degF] Evelin Kulkarni RN [facility] Work Phone: Encounters Encounter Date Encounter Type Care Provider Facility Start: 06-21-2025 End: 06-21-2025 Patient encounter procedure Rosibel [facility] -[facility] Work Phone: Start: 06-21-2025 End: 06-21-2025 ambulatory Saqib Juárez Facility:[facility] Start: 06-16-2025 End: 06-16-2025 Patient encounter procedure Rosibel [facility] -[facility] Work Phone: Start: 06-16-2025 End: 06-16-[address] Saqib Juárez MD Work Phone: -[facility] Start: 04-29-2025 End: 04-29-[address] Saqib Juárez MD -[facility] Work Phone: Start: 04-29-2025 End: 04-29-[address] Saqib Juárez MD Work Phone: -[facility] Start: 03-26-2025 Non-patient / Non-visit Dr. Farrukh DOOLEY -[facility] Start: 03-26-2025 End: 03-26-[address] Saqib Juárez MD Work Phone: -Cardiovascular Services Start: 03-26-2025 End: 03-26-[address] Yong Mora MD -Cardiovascular Services Work Phone: Start: 03-26-2025 End: 03-26-2025 ambulatory Yong Mora Facility:[facility] Start: 03-23-2025 End: 03-23-[address] Yong Mora MD -[facility] Work Phone: Start: 03-23-2025 End: 03-23-[address] Saqib Juárez MD Work Phone: [facility] Work Phone: Start: 03-16-2025 End: 03-16-2025 Patient encounter procedure Rosibel KULKARNIC -[facility] Work Phone: Start: 03-16-2025 End: 03-16-[address] Saqib Juárez MD Work Phone: [facility] Work Phone: Start: 01-22-2025 End: 01-22-2025 ambulatory Saqib Juárez Facility:[facility] Start: 01-22-2025 End: 01-22-[address] Saqib Juárez MD -Physical Therapy Work Phone: Start: 12-30-2024 End: 12-30-[address] Saqib Juárez MD -[facility] Work Phone: Start: 12-30-2024 End: 12-30-2024 ambulatory Saqib Juárez Facility:[facility] Start: 12-04-2024 End: 12-04-[address] Saqib Juárez MD Work Phone: [facility] Work Phone: Start: 12-04-2024 End: 12-04-[address] Daniel Lim MD -Physical Therapy Work Phone: Start: 12-01-2024 End: 12-01-[address] Saqib Juárez MD -Laboratory, Specimen Work Phone: Start: 12-01-2024 End: 12-01-[address] Saqib Juárez MD Work Phone: [facility] Work Phone: Start: 12-01-2024 End: 12-01-2024 ambulatory Saqib Juárez Facility:[facility] Start: 08-31-2024 End: 08-31-2024 Patient encounter procedure Paul Ferguson Rex FISH RECEIVER-C -[facility] Work Phone: Start: 08-31-2024 End: 08-31-2024 Patient encounter status Paul Ferguson Rex -C [facility] Start: 08-31-2024 End: 08-31-2024 ambulatory Paul Ferguson Rex Facility:[facility] Start: 08-17-[address] Saqib Juárez MD Work Phone: [facility] Start: 08-17-2024 End: 08-17-[address] Saqib Juárez MD [facility] [place] Work Phone: Start: 08-17-2024 End: 08-17-[address] Saqib Juárez MD [facility] Start: 08-17-2024 End: 08-17-2024 ambulatory Saqib Meena Facility:[facility] Start: 07-13-2024 End: 07-13-2024 ambulatory Saqib Juárez Facility:[facility] Start: 03-17-[address] Saqib Juárez MD Work Phone: [facility] Comment on above: October 07, 2024 ri ght knee replacement Start: 02-06-2024 End: 02-06-[address] Saqib Juárez Work Phone: [facility] Work Phone: Start: 02-03-2024 End: 02-03-[address] Saqib Juárez Work Phone: [facility] Work Phone: Start: 02-03-2024 End: 02-03-[address] Saqib Juárez Work Phone: [facility]-Laboratory Work Phone: Start: 01-31-2024 End: 01-31-[address] Saqib Juárez Work Phone: [facility] Work Phone: Start: 01-31-2024 End: 01-31-[address] Saiqb Juárez Work Phone: [facility]-Laboratory Work Phone: Start: 05-07-2023 Non-patient / Non-visit Dr. Leonela Juárez Work Phone: [facility] Start: 05-07-2023 End: 05-07-2023 Admission to same day surgery center Dr. Saqib Juárez Work Phone: [facility]-Endoscopy Work Phone: Start: 05-07-2023 End: 05-07-[address] Saqib Juárez Work Phone: [facility] Work Phone: Start: 04-04-2023 End: 04-04-[address] Saqib Juárez Work Phone: [facility] Work Phone: Start: 03-14-2023 End: 03-14-[address] Saqib Juárez Work Phone: [facility]-Pulmonary Medicine [facility] Work Phone: Start: 03-12-2023 End: 03-12-[address] Saqib Juárez Work Phone: [facility] Work Phone: Start: 09-10-2022 End: 09-10-2022 Emergency department patient visit Dr. Saqib Juárez Work Phone: [facility]-Emergency Department Start: 09-07-2022 End: 09-07-[address] Saqib Juárez Work Phone: [facility] Start: 09-06-2022 End: 09-06-[address] [facility] Start: 07-26-2022 End: 07-26-[address] Saqib Juárez Work Phone: [facility] Start: 07-20-2022 End: 07-30-[address] Saqib Juárez Work Phone: [facility] Work Phone: Start: 07-20-2022 End: 07-30-[address] Saqib Juárez Work Phone: [facility]-Cardiac Rehab Start: 07-10-2022 End: 07-10-[address] Saqib Juárez Work Phone: [facility] Work Phone: Start: 07-10-2022 End: 07-10-[address] Saqib Juárez Work Phone: [facility]-Sleep Lab Start: 07-06-[address] Saqib Juárez Work Phone: [facility]Cardiac Rehab Start: 06-29-2022 End: 06-29-[address] Saqib Juárez Work Phone: [facility] Work Phone: Start: 06-29-2022 End: 06-29-[address] Saqib Juárez Work Phone: [facility]-Cardiac Rehab Start: 06-28-2022 End: 06-28-[address] Saqib Juárez [facility] Start: 05-23-2022 End: 05-30-[address] Saqib Juárez Work Phone: [facility] Work Phone: Start: 05-23-2022 End: 05-30-[address] Saqib Juárez Work Phone: [facility]Cardiac Rehab Start: 05-17-2022 End: 05-17-[address] Saqib Juárez Work Phone: [facility]-Pulmonary Medicine [facility] Start: 04-27-2022 End: 04-29-[address] Saqib Juárez Work Phone: [facility]Card[facility] Start: 04-17-2022 End: 04-17-[address] Saqib Juárez Work Phone: [facility]-Sleep Lab Start: 04-16-2022 End: 04-16-[address] Saqib Juárez Work Phone: [facility]-Cardiac Rehab Start: 04-10-2022 Non-patient / Non-visit Dr. Leonela Juárez Work Phone: [facility] Start: 03-19-2022 End: 03-19-[address] Saqib Juárez Work Phone: [facility]-Laboratory Start: 03-16-2022 End: 03-16-[address] Saqib Juárez Work Phone: [facility] Start: 03-08-2022 End: 03-08-[address] Saqib Juárez Work Phone: [facility] Start: 03-07-2022 End: 03-07-[address] Saqib Juárez Work Phone: [facility]-Sleep Lab Start: 03-03-2022 Non-patient / Non-visit Dr. Leoenla Juárez Work Phone: [facility] Start: 03-03-2022 Non-patient / Non-visit Dr. Leonela Juárez Work Phone: [facility] Start: 03-02-2022 End: 03-03-2022 Evaluation and management of inpatient Dr. Saqib Juárez Work Phone: [facility]-Progressive Care Unit Start: 02-22-2022 End: 02-22-[address] Saqib Juárez Work Phone: [facility] Start: 02-19-2022 End: 02-19-[address] Saqib Juárez Work Phone: [facility] Internal Medicine Procedures Date Procedure Procedure Detail Performing Clinician Start: 12-01-[address] Saqib Juárez MD Work Phone: Start: 05-07-[address] Saqib Juárez Work Phone: Start: 09-10-2022 X-ray of both feet Dr. Saqib Juárez Work Phone: Start: 03-02-2022 History of placement of stent for coronary artery disease History of coronary artery stent placement Dr. Saiqb Juárez MD Comment on above: IAT-IDO-Fgmp LAD at D2 bifurcation w/ 3.5 x 18 mm [facility] Stent and POBA-D2 03/02/22; Start: 02-22-2022 Plain [...] Phone: Start: 05-21-2017 End: 05-22-2017 Referral to director data processing Wil Rivas MD Work Phone: Start: 05-07-2017 End: 05-14-2017 Chest x-ray Wil Rivas MD Work Phone: Start: 05-07-2017 End: 05-15-2017 SURINDER Rivas MD Work Phone: Start: 05-07-2017 End: 05-15-2017 Follow up Appt 3 weeks Wil Rivas MD Work Phone: Start: 05-07-2017 End: 05-08-2017 Referral to director data processing Wil Rivas MD Work Phone: Start: 05-06-2017 End: 05-15-2017 Echocardiography Wil Rivas MD Work Phone: Start: 05-01-2017 End: 05-01-2017 SURINDER Goodman NP Work Phone: Start: 05-01-2017 End: 05-01-2017 Echocardiography Paul Goodman FISH RECEIVER Work Phone: Plan of Treatment Date Care Activity Detail Author Start: 06-16-2025 [facility] Start: 12-30-2024 Patient referral [facility] Work Phone: Start: 08-31-2024 Patient referral [facility] Work Phone: Start: 08-17-2024 Patient referral [facility] Work Phone: Start: 02-06-2024 Patient referral [facility] Work Phone: Start: 05-07-2023 Patient discharge [facility] Start: 04-10-2022 Patient referral [facility] Work Phone: Start: 03-05-2022 Patient referral [facility] Work Phone: Start: 03-03-2022 Patient discharge [facility] Work Phone: Start: 03-02-2022 Admission procedure [facility] Work Phone: Start: 03-02-2022 Following clinical pathway protocol [facility] Work Phone: Start: 03-02-2022 Cardiac monitoring [facility] Work Phone: Start: 03-02-2022 Cardiac rehabilitation - phase 1 [facility] Work Phone: Start: 03-02-2022 Cardiac rehabilitation - phase 2 [facility] Work Phone: Start: 03-02-2022 Oxygen therapy [facility] Work Phone: Start: 03-02-2022 Patient discharge [facility] Work Phone: Start: 03-02-2022 Systemic arterial pressure monitoring [facility] Work Phone: Start: 03-02-2022 Vascular disease risk assessment [facility] Work Phone: Start: 03-02-2022 Vital signs measurements [facility] Work Phone: Start: 03-02-2022 End: 03-02-2022 [facility] Work Phone: Start: 03-02-2022 End: 03-02-2022 Notification of physician [facility] Work Phone: Start: 03-02-2022 Patient education [facility] Work Phone: Start: 03-02-2022 Pulse taking [facility] Work Phone: Start: 03-02-2022 End: 03-02-2022 Taking patient vital signs [facility] Work Phone: Start: 03-02-2022 Wound care [facility] Work Phone: Start: 03-02-2022 Admission procedure [facility] Work Phone: Start: 03-02-2022 Assessment of risk of venous thromboembolism [facility] Work Phone: Start: 03-02-2022 Insertion of catheter into peripheral vein [facility] Work Phone: Start: 03-02-2022 Measuring intake and output [facility] Work Phone: Start: 03-02-2022 Providing care according to standard [facility] Work Phone: Start: 03-02-2022 Inhalation therapy procedure [facility] Work Phone: Start: 02-19-2022 Patient referral [facility] Work Phone: Start: 10-03-2017 End: 10-03-2017 Appointment Appointment [facility] Work Phone: Start: 09-30-2017 End: 08-26-2017 *Hepatic Function Panel *Hepatic Function Panel [facility] Work Phone: Start: 09-30-2017 End: 08-26-2017 Lipid panel [AGGREGATE] *Lipid Profile CC PCP [facility] Work Phone: Start: 08-26-2017 End: 08-26-2017 ALBERTN ALBERTN [facility] Work Phone: Start: 08-26-2017 End: 08-26-2017 Follow Up Appt 6 months Follow Up Appt 6 months [facility] Work Phone: Start: 08-26-2017 End: 08-26-2017 Appointment [facility] Phone: Start: 06-17-2017 End: 06-24-2017 *Hepatic Function Panel *Hepatic Function Panel [facility] Work Phone: Start: 06-17-2017 End: 06-24-2017 Lipid panel [AGGREGATE] *Lipid Profile CC PCP [facility] Work Phone: Start: 05-21-2017 End: 05-22-2017 *Hepatic Function Panel *Hepatic Function Panel [facility] Work Phone: Start: 05-21-2017 End: 05-22-2017 Cardiac Rehab Cardiac Rehab [address] [place], [address] [facility] Work Phone: Start: 05-21-2017 End: 05-21-2017 SURINDER CADENA [facility] Work Phone: Start: 05-21-2017 End: 05-21-2017 Follow Up Appt 3 months Follow Up Appt 3 months [facility] Work Phone: Start: 05-21-2017 End: 05-22-2017 Lipid panel [AGGREGATE] *Lipid Profile CC PCP [facility] Work Phone: Start: 05-07-2017 End: 05-07-2017 Cardiac Rehab Cardiac Rehab [address] [place], [address] [facility] Work Phone: Start: 05-07-2017 End: 05-14-2017 Chest x-ray X-Ray, Chest, PA & Lateral [facility] Work Phone: Start: 05-07-2017 End: 05-15-2017 SURINDER CADENA [facility] Work Phone: Start: 05-07-2017 End: 05-15-2017 Follow up Appt 3 weeks Follow up Appt 3 weeks [facility] Work Phone: Start: 05-06-2017 End: 05-06-2017 Echocardiography Echocardiogram (complete) [facility] Work Phone: Start: 05-01-2017 End: 05-01-2017 SURINDER CADENA [facility] Work Phone: Start: 05-01-2017 End: 05-01-2017 Follow Up Appt 6 months Follow Up Appt 6 months [facility] Work Phone: Catheterization of l eft heart [facility] Work Phone: Colonoscopy [facility] Lipid 1996 panel - S maury or Plasma [facility] Work Phone: Patient referral [facility] Work Phone: T4 free measurement [facility] Work Phone: Thyroid stimulating hormone measurement [facility] Work Phone: Immunizations Immunization Date Immunization Notes Care Provider [facility] 06-16-2025 Seasonal trivalent influenza vaccine, adjuvanted, preservative free Dr. Saqib Juárez MD Work Phone: [facility] 08-17-2024 Seasonal trivalent influenza vaccine, adjuvanted, preservative free Dr. Saqib Juárez MD Work Phone: [facility] 07-16-[address] Saqib Juárez Work Phone: [facility] Payers Date Payer Category Payer Self-pay [id number] 2021 Unknown [id number] 2009 Medicare [id number] [facility] [id number] Unknown [id number] Unknown [id number] Unknown [id number] Unknown [id number] 2.16.8 [id number] Unknown [id number] 2.16.8 [id number] Unknown [id number] 2.16.8 [id number] Unknown [id number] 2.16.8 [id number] Unknown [id number] 2.16.8 40.1.043528.3.579.2.462 Unknown [id number] 2.16.8 40.1.299805.3.579.2.462 Unknown [id number] 2.16.8 40.1.926850.3.579.2.462 Unknown [id number] 2.16.8 40.1.568801.3.579.2.462 Unknown [id number] 2.16.8 40.1.362365.3.579.2.462 Unknown [id number] 2.16.8 40.1.709967.3.579.2.462 Unknown [id number] 2.16.8 [id number] Unknown [id number] 2.16.8 [id number] Social History Date Type Detail Facility Start: 03-01-2022 End: 09-02-2023 Tobacco smoking status NHIS Unknown if ever smoked [facility] Start: 02-20-2021 Non-smoker [facility] Start: 1945 Sex Assigned At Female [facility] Start: 08-31-2024 Tobacco smoking status NHIS Ex-smoker (finding) [facility] Start: 12-07-2024 End: 12-15-2024 Sex Female (finding) [facility] Sex Female [facility] NEGATED: Highlighted row [facility] Medical Equipment Procedure Code Equipment Code Equipment Origin al Text Equipment Identifier Dates ([id number]) Drug-eluting coronary artery stent, bioabsorbable-polyme r-coated [id number] FDA Start: 03-02-2022 Goals Date Patient Goal Desired Activity /State Functional Status Date Assessment Result Facility 03-03-2022 Functional status Activity Abili ty Unable to Assess [facility] Work Phone: Mental Status Date Assessment Result Facility 05-07-2023 Cognitive function Voice/Name [facility] Work Phone: 03-03-2022 Cognitive function Appropriate;Cooperativ e [facility] Work Phone: Clinical Notes 04-08-2017 to 04-29-2025 Note Date & Type Note Facility 04-29-2025 Progress note [facility] 04-29-2025 Progress note Note Date/Time April 29, 2025 12:13pm [facility] [address] [place] [address] OFFICE VISIT Date of Service: 04/29/25 MR#: [id number] Acct: [id number] Name: KARYN MULLER Rep #: [id number] : 1945 Provider: Dr. 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 She developed URI symptoms while in [place] last week. Worsened on the way home. 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 transplanted heart: lummi heart Qualified Code(s): I25.119 - Atherosclerotic heart disease of lummi coronary artery with unspecified angina pectoris Comment: SCX-ZBB-Xany LAD at D2 bifurcation w/ 3.5 x 18 mm Orsiro [place] Stent and POBA-D2 03/02/22; (4) History of coronary artery stent placement: Status: Acute Comment: WAL-IRP-Aueh LAD at D2 bifurcation w/ 3.5 x 18 mm Orsiro [place] Stent and POBA-D2 03/02/22; (5) H/O aortic valve replacement: Status: Chronic Comment: # 21 Trifecta Valve @ [facility] [address] [place] Medications: New azithromycin 500 mg [...] webster MD> Date _ [facility] Signature: Date (if applicable) CC: ~ [facility] Work Phone: 1(848) 109-450306-17-2025 Evaluation note* Diagnosis Onset Date Resolution Status Admit Date Asthma chronic March 16 3:17pm JOSE (obstructive sleep apnea) chronic March 16, 2025 3:17pm Overweight chronic March 16 3:17pm 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 acute March 232024 2:25pm Essential (primary) hypertension chronic March 23, 2025 2:25pm H/O aortic valve replacement April 08, 2017 ch ronic March 23, 2025 2:25pm Hyperlipidemia chronic March 23, 2025 2:25pm Asthmatic bronchitis acute April 29, 2025 11:38am 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 acute April 292024 11:38am History of coronary artery stent placement March 02, 2022 acute April 29, 2025 11:38am Asthma chronic April 29 11:38am H/O aortic valve replacement April 08, 2017 shahid atkinsic April 29, 2025 11:38am Asthma chronic May 3:17pm JOSE (obstructive sleep apnea) chronic June 16, 2025 3:17pm Overweight chronic May 3:17pm [facility] Work Phone: 1(963) 912-958004-02-2025 Evaluation note* Diagnosis Onset Date Resolution Status Admit Date Left hip pain noneactive December 30, 2024 9:35am [facility] Work Phone: 1(938) 364-301904-02-2025 Evaluation note* Diagnosis Onset Date Resolution Status Admit Date Left hip pain noneactive December 30, 2024 9:35am Asthma chronic March 16 3:17pm JOSE (obstructive sleep apnea) chroni c March 16, 2025 3:17pm Overweight chronic March 16 3:17pm [facility] Work Phone: 1(755) 463-195404-02-2025 Evaluation note* Diagnosis Onset Date Resolution Status Admit Date Left hip pain noneactive December 30, 2024 9:35am Asthma chronic March 16 3:17pm JOSE (obstructive sleep apnea) chroni c March 16, 2025 3:17pm Overweight chronic March 16 3:17pm Atherosclerotic heart 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 acute March 23 2:25pm Essential (primary) hypertension chronic March 23, 2025 2:25pm H/O aortic valve replacement April 08, 2017 ch millyic March 23, 2025 2:25pm Hyperlipidemia chronic March 23, 2025 2:25pm [facility] Work Phone: 1(265) 880-482004-02-2025 Evaluation note* Diagnosis Onset Date Resolution Status Admit Date Left hip pain noneactive December 30, 2024 9:35am Asthma chronic March 16 3:17pm JOSE (obstructive sleep apnea) chroni c March 16, 2025 3:17pm Overweight chronic March 16 3:17pm Atherosclerotic heart 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 acute March 23 2:25pm Essential (primary) hypertension chronic March 23, 2025 2:25pm H/O aortic valve replacement April 08, 2017 ch ronic March 23, 2025 2:25pm Hyperlipidemia chronic March 23, 2025 2:25pm Asthmatic bronchitis acute April 29, 2025 11:38am Atherosclerotic heart 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 acute April 29 11:38am History of coronary artery stent placement March 02, 2022 acute April 29, 2025 11:38am Asthma chronic April 29 11:38am H/O aortic valve replacement April 08, 2017 ch ronic April 29, 2025 11:38am [facility] Work Phone: 1(126) 965-408503-07-2025 Discharge summary Author Sonu Mast [facility] Note Date/Time December 04, 2024 6:00 pm [facility] [address] [place] [address] [address] [place] [id number] / REHABILITATION SERVICES DISCHARGE SUMMARY MR#: [id number] Acct: [id number] Name: KARYN MULLER Rep #: [id number] : 1945 79 From: Sonu Mast PT, ATC Referring Dr.: Dr. Daniel Lim MD Status: REG RCR Insurance: MEDICARE PART A B [facility] Discharge Summary D/C summary: [...] Progress: Goal Met Plan Plan: Discharge to gym routine D/C Information d/c sentence: If there are questions or concerns regarding this patient's physical therapy, please feel free to call me at [phone]. Thank you for the referral of thispatient. Sincerely, Sonu Mast PT, ATC Balance/Gait/Functional tests Balance/Special Test Scores Lower Extremity Functional Score: 27 WOMAC Total Score: 20 WOMAC Percentage: 79.1700 Improvement % Improvement: 90 <Electronically signed by Sonu Mast PT, ATC> 12/04/24 1233 CC: Dr. Daniel Lim MD; Dr. Saqib Juárez MD ~ [facility] Signed [facility] Work Phone: 1(142) 394-881603-07-2025 Discharge summary [facility] [address] [place] [address] [address] [place] [address] / REHABILITATION SERVICES DISCHARGE SUMMARY MR#: [id number] Acct: [id number] Name: KARYN MULLER Rep #: [id number] : 1945 79 From: Sonu Mast PT, ATC Referring DrMony: Dr. Daniel Lim MD Status: REG RCR Insurance: MEDICARE PART A B [facility] Discharge Summary D/C summary: [...] please feel free to call me at [phone]. Thank you for the referral of thispatient. Sincerely, Sonu Mast, PT, ATC Balance/Gait/Functional tests Balance/Special Test Scores Lower Extremity Functional Score: 27 WOMAC Total Score: 20 WOMAC Percentage: 79.1700 Improvement % Improvement: 90 12/04/24 1233 CC: Dr. Daniel Lim MD; Dr. Saqib Juárez MD ~ [facility] Signed [facility]08-08-2023 History and physical note Author Bill Salas [facility] May 07, 2023 7:46am Note Date/Time May 07, 2023 7:4 6am [facility] Medical Records Department [address] [place] [id number] History & Physical Exam 05/07/23 0746 MR#: [id number] Acct: [id number] Name: KARYN MULLER Rep #:[id number] : 1945 77 From: Bill Salas MD PCP: Dr. 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 By report while she was in [place] she was seen at the [facility] extension. She had an echocardiogram showing ejection [...] [place] and she is also been in [place]. She did a significant mount of walking [...] and no acute distress Nutritional Appearance: overweight [facility] Head: normal to inspection Eyes General: appearance [...] surgical care Copy: Dr. Saqib Salas M.D., F.A.C.S. I have examined the patient and the H&P has been reviewed. There are no clinicalchanges since date of exam. Bill Salas M.D., F.A.C.S. 05/07/23 0746 <Electronically signed by Bill Salas MD> Cosigner Signature (if applicable): CC: Dr. Saqib Juárez MD; Dr. Bill Salas MD~ Signed [facility] Work Phone: 1([phone]) 481-148108-08-2023 Procedure [facility] 05-07-2023 Procedure [facility]07-10-2023 Evaluation note* Diagnosis Onset Date Resolution Status Atherosclerotic heart 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 acute Dyspnea on exertion acute Palpitations acute Essential (primary) hypertension chronic H/O aortic valve replacement April 08, 2017 chronic Hyperlipidemia chronic Asthma acute JOSE (obstructive sleep apnea) chronic Personal history of colonic polyps acute [facility] Work Phone: [phone]) 377-834606-03-2022 Evaluation note* Diagnosis Onset Date Resolution Status History of coronary artery stent placement March 02 acute Essential (primary) hypertension chronic H/O aortic valve replacement April 08, 2017 chronic History of coronary artery stent placement March 02 acute Screening for intestinal cancer acute Atherosclerotic heart 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 acute Dyspnea on exertion acute History of coronary artery stent placement March 02 acute Essential (primary) hypertension chronic H/O aortic valve replacement April 08, 2017 chronic Hyperlipidemia chronic Asthma acute JOSE (obstructive sleep apnea) acute Asthma acute JOSE (obstructive sleep apnea) [facility] Work Phone: [phone]) 299-110906-03-2022 Evaluation note* Diagnosis Onset Date Resolution Status Atherosclerotic heart 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 acute Dyspnea on exertion acute History of coronary artery stent placement March 02 acute Essential (primary) hypertension chronic H/O aortic valve replacement April 08, 2017 chronic Hyperlipidemia chronic Asthma acute JOSE (obstructive sleep apnea) acute Asthma acute JOSE (obstructive sleep apnea) [facility] Work Phone: [phone]) 585-705906-03-2022 Evaluation note* Diagnosis Onset Date Resolution Status Admit Date History of coronary artery stent placement March 02, 2022 acute August 17, 2 024 1:48pm Preop exam for internal medicine acute August 17 2 024 1:48pm Pruritus acute August 17, 2024 1:48pm Sleep apnea acute July 1:48pm Essential (primary) hypertension chronic August 17 2 024 1:48pm H/O aortic valve replacement April 08, 2017 ch ronic August 17, 2024 1:48pm Hyperlipidemia chronic July 312023 1:48pm Nonrheumatic aortic (valve) stenosis chronic August 17, 2 024 1:48pm JOSE (obstructive sleep apnea) chroni c August 17, 2024 1:48pm Atherosclerotic heart 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 acute August 31, 2024 11:08am Preop cardiovascular exam acute August 31, 2024 11:08am Essential (primary) hypertension chronic August 31 11:08am H/O aortic valve replacement April 08, 2017 ch ronic August 31, 2024 11:08am Hyperlipidemia chronic August 312023 11:08am [facility] Work Phone: [phone] 643-295112-13-2021 NoteHNO ID: [id number] Author: Ivett Kong Population Health Navigator Service: [...] future healthcare decisions with a power of tax associate attorney, living will, or advance directives? NO Referrals: N/A Message Sent to Practice: NO Navigation Signature: Ivett Kong Population Health Navigator September 11, 2021 1:23 [facility]12-13-2021 NotePatient Outreach (NETNAV) KARYN MULLER ([id number]) 1945 F Date Time Provider Department 09/11/21 [...] future healthcare decisions with a power of tax associate attorney, living will, or advance directives? NO Referrals: N/A Message Sent to Practice: NO Navigation Signature: Ivett Garcia Alexandro Population Health Navigator September 11, [...] Status:Closed by ALEXANDRO LOPEZ (more content not included)...[facility]07-10-2017 Evaluation note* Diagnosis Onset Date Resolution Status Dyspnea on exertion acute Sleep apnea acute Essential (primary) hypertension chronic H/O aortic valve replacement April 08, 2017 chronic Hyperlipidemia chronic Atherosclerotic heart 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 acute Dyspnea on exertion acute Essential (primary) hypertension chronic H/O aortic valve replacement April 08, 2017 [facility] Work Phone: [phone]) [phone] Evaluation note* Diagnosis Onset Date Resolution Status Dyspnea on exertion acute Sleep apnea acute Essential (primary) hypertension chronic H/O aortic valve replacement April 08, 2017 chronic Hyperlipidemia chronic Atherosclerotic heart 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 acute Dyspnea on exertion acute Essential (primary) hypertension chronic H/O aortic valve replacement April 08, 2017 chronic History of coronary artery stent placement March 02 acute Essential (primary) hypertension chronic H/O aortic valve replacement April 08, 2017 [facility] Work Phone: 1(219) 969-134007-10-2017 Evaluation note* Diagnosis Onset Date Resolution Status Dyspnea on exertion acute Sleep apnea acute Essential (primary) hypertension chronic H/O aortic valve replacement April 08, 2017 chronic Hyperlipidemia chronic Atherosclerotic heart 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 acute Dyspnea on exertion acute Essential (primary) hypertension chronic H/O aortic valve replacement April 08, 2017 chronic History of coronary artery stent placement March 02 acute Essential (primary) hypertension chronic H/O aortic valve replacement April 08, 2017 chronic History of coronary artery stent placement March 02 acute Screening for intestinal cancer acute Atherosclerotic heart 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 acute Dyspnea on exertion acute History of coronary artery stent placement March 02 acute Essential (primary) hypertension chronic H/O aortic valve replacement April 08, 2017 chronic Hyperlipidemia [facility] Work Phone: 1(310) 239-996807-10-2017 Evaluation note* Diagnosis Onset Date Resolution Status Dyspnea on exertion acute Sleep apnea acute Essential (primary) hypertension chronic H/O aortic valve replacement April 08, 2017 chronic Hyperlipidemia chronic Atherosclerotic heart 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 acute Dyspnea on exertion acute Essential (primary) hypertension chronic H/O aortic valve replacement April 08, 2017 chronic History of coronary artery stent placement March 02 acute Essential (primary) hypertension chronic H/O aortic valve replacement April 08, 2017 chronic History of coronary artery stent placement March 02 acute Screening for intestinal cancer acute Atherosclerotic heart 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 acute Dyspnea on exertion acute History of coronary artery stent placement March 02 022 acute Essential (primary) hypertension chronic H/O aortic valve replacement April 08, 2017 chronic Hyperlipidemia chronic Asthma acute JOSE (obstructive sleep apnea) [facility] Work Phone: Evaluation note* Diagnosis Onset Date Resolution Status Asthma acute JOSE (obstructive sleep apnea) acute Asthma acute JOSE (obstructive sleep apnea) acute Atherosclerotic heart 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 acute Chronic GERD chronic Essential (primary) hypertension chronic H/O aortic valve replacement April 08, 2017 chronic Hyperlipidemia [facility] Work Phone: Evaluation note* Diagnosis Onset Date Resolution Status Asthma acute JOSE (obstructive sleep apnea) chronic Asthma acute JOSE (obstructive sleep apnea) chronic Atherosclerotic heart 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 acute Chronic GERD chronic Essential (primary) hypertension chronic H/O aortic valve replacement April 08, 2017 chronic Hyperlipidemia chronic Asthma acute JOSE (obstructive sleep apnea) chronic Atherosclerotic heart 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 acute History of coronary artery stent placement March 02 022 acute Essential (primary) hypertension chronic Fatigue chronic H/O aortic valve replacement April 08, 2017 chronic Hyperlipidemia [facility] Work Phone: Evaluation note* Diagnosis Onset Date Resolution Status Atherosclerotic heart 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 acute Right knee DJD acute Right knee pain acute Essential (primary) hypertension chronic H/O aortic valve replacement April 08, 2017 chronic Hyperlipidemia chronic JOSE (obstructive sleep apnea) [facility] Work Phone[facility]: [phone] Work Phone: [phone]: [phone] Work Phone: [phone] Work Phone: [phone] Work Phone: [phone] Discharge instructionsAmbulatory Orders* Orthopedics Location: None Selected [facility] Work Phone: Reason for referral (narrative)No reason for referral information [facility]Santa [facility] Work Phone: Summary Purpose Family History Relationship Condition Age at Onset Recorded Date/T amber brother Cardiac disease Unknown Coronary artery disease Unknown Advance Directives Advance Directive Response Recorded Date/ Time Advance Directives No March 01 8:47am Living Will No March 01, 2022 8 :47am Power of Vice President Of News No March 01, 2022 8:47am Advance Directive Response Recorded Date/ Time Advance Directives Yes March 02 9:33am Living Will Yes March 02, 2022 9 :33am Power of Vice President Of News Yes March 02, 2022 9:33am Advance Directive Response Recorded Date/ Time Advance Directives on File Yes March 02, 2022 9:33am Name of Medical Power of Vice President Of News ashlee abbott March 02, 2022 9:33am Advance Directives Yes March 02 9:33am Living Will Yes March 02, 2022 9 :33am Power of Vice President Of News Yes March 02, 2022 9:33am Advance Directive Response Recorded Date/ Time Advance Directives on File Yes March 02, 2022 9:33am Name of Medical Power of Vice President Of News ashlee abbott March 02, 2022 9:33am Advance Directives on File Yes April 16, 2022 11:25am Advance Directives Yes March 02 9:33am Living Will Yes April 16, 2022 11:25am Power of Vice President Of News Yes April 16 11:25am Advance Directive Response Recorded Date/ Time Advance Directives on File Yes April 16, 2022 11:25am Advance Directives Yes March 02 9:33am Living Will Yes April 16, 2022 11:25am Power of Vice President Of News Yes April 16 11:25am Advance Directive Response Recorded Date/ Time Advance Directives Yes September 07, 2022 4:12pm Living Will No September 10 12:17pm Power of Vice President Of News No September 10, 2022 12:17pm Advance Directive Response Recorded Date/ Time Advance Directives Yes September 07, 2022 5:12pm Living Will Yes May 03, 2023 3:42pm Power of Vice President Of News No May 03 3:42pm Advance Directive Response Recorded Date/ Time Living Will Yes May 03, 2023 3:42pm Power of Vice President Of News No May 03 3:42pm Advance Directives Yes May 01 9:54am Advance Directive Response Recorded Date/ Time Living Will Yes May 03, 2023 3:42pm Do you have a Healthcare Power of Vice President Of News? 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 Dyspnea on exertion Essential (primary) hypertension H/O aortic valve replacement Chief Complaint 8 month f/u 6 M FU/PER PCP CHEST PAIN RIOS CAD RIOS CAD Reason for Visit Dyspnea on exertion Sleep apnea Essential (primary) hypertension H/O aortic valve replacement Hyperlipidemia 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 Dyspnea on exertion [...] aortic valve replacement Hyperlipidemia 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 Dyspnea on exertion Essential (primary) hypertension H/O aortic valve replacement History of coronary artery stent placement Essential (primary) hypertension H/O aortic valve replacement History of coronary artery stent placement Screening for intestinal cancer 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 Dyspnea on exertion [...] aortic valve replacement Hyperlipidemia 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 Dyspnea on exertion Essential (primary) hypertension H/O aortic valve replacement History of coronary artery stent placement Essential (primary) hypertension H/O aortic valve replacement History of coronary artery stent placement Screening for intestinal cancer 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 Dyspnea on exertion [...] aortic valve replacement Hyperlipidemia 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 Dyspnea on exertion Essential (primary) hypertension H/O aortic valve replacement History of coronary artery stent placement Essential (primary) hypertension H/O aortic valve replacement History of coronary artery stent placement Screening for intestinal cancer 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 Dyspnea on exertion [...] aortic valve replacement Hyperlipidemia 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 Dyspnea on exertion Essential (primary) hypertension H/O aortic valve replacement History of coronary artery stent placement Essential (primary) hypertension H/O aortic valve replacement History of coronary artery stent placement Screening for intestinal cancer 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 Dyspnea on exertion History of coronary artery stent placement Essential (primary) hypertension H/O aortic valve replacement Hyperlipidemia Asthma JOSE (obstructive sleep apnea) Chief Complaint RIOS CAD RIOS CAD RIOS CAD SLEEP APNEA 3 Y FOLLOW UP COLON RESECTION/CSCOPE F/U from [facility] PCI w/coronary stenting SLEEP APNEA PCI w/coronary stenting 1 Y FU PCI w/coronary stenting 6 W FU PCI w/coronary stenting Reason for Visit History of coronary artery stent placement Essential (primary) hypertension H/O aortic valve replacement History of coronary artery stent placement Screening for intestinal cancer 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 Dyspnea on exertion [...] Reason for Visit Atherosclerotic hear t disease lummi coronary artery w/angina pectoris Dyspnea on exertion [...] JOSE (obstructive sleep apnea) 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 Chronic GERD Essential (primary) hypertension H/O aortic valve replacement Hyperlipidemia Chief Complaint 1 Y FU PCI w/coronary stenting 6 W FU PCI w/coronary stenting OBSTRUCTIVE SLEEP APNEA PCI w/coronary stenting Trouble sleeping, not feeling well 2 M FU 1 y fu/ had to r/s from [employer] d/t leaving state lower extremity Reason for Visit Asthma JOSE (obstructive sleep apnea) Asthma JOSE (obstructive sleep apnea) 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 Chronic GERD Essential (primary) hypertension H/O aortic valve replacement Hyperlipidemia Asthma JOSE (obstructive sleep apnea) 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 History of coronary artery stent placement Essential (primary) hypertension Fatigue H/O aortic valve replacement Hyperlipidemia Chief Complaint 6 M FU 5 m fu RECALL LETTER- COLONOSCOPY Reason for Visit Atherosclerotic hear t disease lummi coronary artery w/angina pectoris Dyspnea on exertion Palpitations Essential (primary) hypertension H/O aortic valve replacement Hyperlipidemia Asthma JOSE (obstructive sleep apnea) Personal history of colonic polyps Chief Complaint E-ORDER EORDER Annual/Physical Reason for Visit Atherosclerotic hear t disease lummi coronary artery w/angina pectoris Right knee DJD [...] 1:48pm Preop exam for internal medicine Novembe 2023 1:48pm Pruritus August 17, 2024 1:48pm Sleep apnea August 17, 2024 1:48pm Essential (primary) hypertension Novembe r 2023 1:48pm H/O aortic valve replacement November 18 th, 2024 1:48pm Hyperlipidemia August 17, 2024 1:48pm Nonrheumatic aortic (valve) stenosis Nov ember 2023 1:48pm JOSE (obstructive sleep apnea) July [id number] 1:48pm Atherosclerotic heart 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 August 31, 2024 [...] aortic (valve) stenosis Paresh e 2024 11:00am Reason for Visit Admit Date Left hip pain December 30, 2024 9:35 am Asthma March 16, 2025 3:17 pm JOSE (obstructive sleep apnea) March 16, 2025 3:17pm Overweight March 16, 2025 3:17 pm Atherosclerotic heart 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 March 23, 2025 [...] 2025 3:17 pm Atherosclerotic heart 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 March 23, 2025 2:25pm Essential (primary) hypertension March 232024 2:25pm H/O aortic valve replacement March 23, 2025 2:25pm Hyperlipidemia March 23, 2025 2:25 pm Asthmatic bronchitis April 29, 2025 11: 38am Atherosclerotic heart 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 April 29, 2025 [...] 2025 3:17 pm Atherosclerotic heart 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 March 23, 2025 2:25pm Essential (primary) hypertension March 232024 2:25pm H/O aortic valve replacement March 23, 2025 2:25pm Hyperlipidemia March 23, 2025 2:25 pm Asthmatic bronchitis April 29, 2025 11: 38am Atherosclerotic heart 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 April 29, 2025 11:38am History of coronary artery stent placeme nt April 29, 2025 11:38am Asthma April 29, 2025 11:3 8am H/O aortic valve replacement April 29, 2025 11:38am Asthma June 16, 2025 3:17pm JOSE (obstructive sleep apnea) June 16, 2025 3:17pm Overweight June 16, 2025 3:17pm Chief Complaint Admit Date 1 Y FU March 16, 2025 3:17 pm 1 Y FU March 23, 2025 2:25 pm Nonrheumatic aortic (valve) stenosis Paresh e 2024 11:00am Cough, Congestion April 29, 2025 11:3 8am 3 M FU June 16, 2025 3:17pm elevated residual AHI on autoPap Septemb er 2024 8:05pm Additional Source Comments INFORMATION SOURCE (unrecogn ized section and content) DATE CREATED AUTHOR 12/17/2021 [facility] DATE CREATED AUTHOR AUTHOR'S JHONNY ATTOBIN 06/22/2025 [facility] Goals (unrecognized section and content) Goals [...] Provider, Referri ng Provider Active Paul Goodman FISH RECEIVER, FISH RECEIVER-C Attending Provider Active Team Status: Inactive Member [...] Dr. Saqib Juárez MD Primary Care Provider, Attendi ng Provider Active Team Status: Inactive Member Role Status Dates Dr. Saqib Juárez MD Primary Care Provider Active Rose Díaz NP, FISH RECEIVER-C Attending Provider, Referring P cheikh Active Team [...] 2024 End: August 31, 2024 Paul Goodman FISH RECEIVER, FISH RECEIVER-C Attending Provider Active S tart: August 31, [...] 2025 End: March 16, 2025 Rosibel Suh FISH RECEIVER, FISH RECEIVER-C Attending Provider Active Start: March 16, 2025 [...] 01, 2024 End: December 01, 2024 Deondre ARBOLEDA, PA Attending Provider Active Start: December 01, [...] 2025 End: March 16, 2025 Rosibel Suh FISH RECEIVER, FISH RECEIVER-C Attending Provider Active Start: March 16, 2025 [...] End: March 16, 2025 Rosibel Suh NP, FISH RECEIVER-C Attending Provider Active Start: March 16, 2025 [...] End: March 16, 2025 Rosibel Suh NP, FISH RECEIVER-C Attending physician Active Start: March 16, 2025 [...] 2025 End: March 26, 2025 Dr. Yong Mroa MD Referring Provider Active S tart: March [...] 16, 2025 End: June 16, 2025 Dr. Saiqb Juárez MD Referring Provider Active Start: June 16, 2025 End: June 16, 2025 Rosibel Suh FISH RECEIVER, FISH RECEIVER-C Attending physician Active Start: June 16, 2025 End: June 16, 2025 Team Status: Inactive Member Role/Relationship Status Dates Dr. Saqib Juárez MD Primary care physician Active Start: June 21, 2025 End: June 21, 2025 Rosibel Suh FISH RECEIVER, FISH RECEIVER-C Attending physician Active Start: June 21, 2025 End: June 21, 2025 Rosibel Suh FISH RECEIVER, FISH RECEIVER-C Referring Provider Active Start: June 21, 2025 End: June 21, 2025 FOR RECORDS PERTAINING TO PATIENTS WHO [...] BE BASED ON THE PRIMARY CLINICAL RECORDS. [facility] provides no warranty or guarantee of the accuracy or completeness of information in this document.
--- NOTE | 2025-07-03 00:18 | EDS_ITS ---
HPI History of Present Illness Chief Complaint: Chest Pain Informant: patient, family and EMS Narrative Narrative: Patient is an 79-year-old female with a history of aortic valve replacement and stent placement, presenting to the ED via EMS with chest pressure and heaviness in both arms. - Symptoms began around 2200 while going to bed (2 hrs ago) - Describes chest discomfort as a ton of weight and pain across the chest, with heaviness in left arm. She vomited once. - Symptoms have improved but still persist, feels like pressure now; reports feeling better but not well. - Denies palpitations or feeling like she was going to pass out, but reports difficulty breathing and feeling uneasy. - Denies recent illnesses, colds, or stomach flu. - No medications taken for chest pain; took normal nighttime medications. - EMS administered 3 baby aspirin en route to the hospital. - Underwent a sleep study on 06/21. - Aortic valve replacement in 2020 or 2022; unsure if it was a porcine valve. - Stent placement in 2022. - Last cardiology visit in February; follows up twice a year. - Unsure of the last stress test date but believes it was after the stent placement. - Denies taking nitroglycerin; takes aspirin PFSH PFSH Medical History Asthmatic bronchitis Wears hearing aid Wears glasses Alcohol use Low iron Restless legs CPAP (continuous positive airway pressure) dependence Former smoker Cardiology follow-up encounter History of stress test History of echocardiogram Sleep apnea Generalized OA Atherosclerotic heart disease [place] coronary artery w/angina pectoris Nonrheumatic aortic (valve) stenosis Essential (primary) hypertension COVID-19 (08/31/20) Psoriatic arthritis Hyperlipidemia Home Medications ?Medication ?Instructions ?Recorded ?Last Taken ?Type cyanocobalamin (vitamin B-12) 1,000 mcg PO DAILY SUPPL EMENT 02/06/17 05/01/17 History 1,000 mcg tablet aspirin 81 mg tablet,delayed 81 mg PO QDAY heart healt h 10/02/17 05/06/23 History release (Adult Low Dose Aspirin) calcium 600 mg (as carbonate)-vit 1 tab PO QDAY vitami n 10/02/17 Unknown History D3 10 mcg (400 unit)-minerals tablet multivitamin 1 tab PO DAILY vitamin 02/02 Unknown History acetaminophen 650 mg 1,300 mg PO Q12H arthritis 0 5/26/22 Unknown History tablet,extended release albuterol sulfate 90 mcg/actuation 2 puff inhalation Q 4H PRN 05/17/22 Unknown Rx aerosol inhaler shortness of breath or wheez ing #8.5 grams flaxseed oil 1,000 mg capsule 1,000 mg PO DAILY Unknown History ferrous sulfate 325 mg (65 mg 325 mg PO QDAY 08/31/24 Unknown History iron) tablet pravastatin 40 mg tablet See Rx Instructions .Route 0 11/05/24 Unknown Rx .COMPLEX #90 tabs ascorbic acid (vitamin C) 1,000 mg 1 g PO QDAY vitamin 12/30/24 Unknown History tablet metoprolol succinate 50 mg 50 mg PO QHS BLOOD PRESSURE #90 02/23/25 Unknown Rx tablet,extended release 24 hr tabs fluticasone furoate 200 1 inh inhalation DAILY #3 ea 03/16/25 Unknown Rx mcg-vilanterol 25 mcg/dose inhalation powder (Breo Ellipta) losartan 50 mg-hydrochlorothiazide 1 tab PO BID #180 t abs 03/23/25 Unknown Rx 12.5 mg tablet trazodone 100 mg tablet 50 mg (1/2 x 100 mg) PO QHS PRN 05/07/25 Unknown Rx insomnia #90 tabs Allergy/AdvReac Type Severity Reaction Status Date / Time meloxicam AdvReac Nausea Verified 07/02/25 23:29 methotrexate AdvReac Nausea Verified 07/02/25 23:29 NSAIDS (Non-Steroidal AdvReac Nausea Verified 07/02/25 23:29 Anti-Inflamma Sulfa (Sulfonamide AdvReac Nausea Verified 07/02/25 23:29 Antibiotics) Family History Brother Heart disease AV replaced and CABG X 1 CAD (coronary artery disease) CABG x 1 w/ AVR Surgical History Hx of total knee replacement (~10/13/24) History of cardiac catheterization History of colonoscopy History of coronary artery stent placement (03/02/22) History of left heart catheterization (03/14/17) History of shoulder surgery History of partial colectomy (~2011) H/O aortic valve replacement (04/08/17) Social History household members: none Smoking Status: Former smoker how long ago did patient quit smokin + years ago alcohol intake: current alcohol intake frequency: 0-2 drinks per day Alcohol type: hard liquor substance use type: does not use caffeine: Yes Type: coffee Number of servings: 2 ROS ROS ED Constitutional Constitutional ED: Denies chills or fever(s) Eyes Eyes: Denies change in vision or diplopia ENT ENT ED: Denies rhinorrhea or sore throat Cardiovascular Cardiovascular: Reports as per HPI, chest pain and radiating jaw, neck or arm pain; Denies orthopnea or palpitations Respiratory/Chest Respiratory/Chest: Reports dyspnea; Denies cough, dyspnea on exertion or orthopnea Gastrointestinal Gastrointestinal: Reports nausea and vomiting; Denies abdominal pain or diarrhea Genitourinary Genitourinary ED: Denies dysuria or hematuria Musculoskeletal Musculoskeletal: Denies back pain or neck pain Integumentary Denies abscess or rash Neurologic Neurologic: Denies headache(s), paresthesias or weakness Psychiatric Psychiatric: Denies anxiety or suicidal thoughts EXAM Physical Exam Const Vital Signs: 07/02/25 23:23 07/02/25 23:31 07/03/25 00:18 Temperature 98.2 F Temperature Source Oral Pulse Rate 62 Respiratory Rate 17 Respiratory Effort Normal Blood Pressure 164/73 H Blood Pressure Mean 103 Pulse Ox 96 Oxygen Delivery Method Room Air Room Air 07/03/25 00:23 07/03/25 01:00 07/03/25 02:00 Temperature Temperature Source Pulse Rate 68 68 72 Respiratory Rate 18 16 16 Respiratory Effort Blood Pressure 194/67 H 152/81 H 184/65 H Blood Pressure Mean 109 104 104 Pulse Ox 95 96 95 Oxygen Delivery Method Room Air Room Air Room Air 07/03/25 02:54 Temperature Temperature Source Pulse Rate 71 Respiratory Rate 16 Respiratory Effort Blood Pressure 188/71 H Blood Pressure Mean 110 Pulse Ox 97 Oxygen Delivery Method Room Air Positive well nourished and well developed General Appearance ED: well developed and NAD HEENT Reports moist mucous membranes normocephalic and atraumatic Eyes PERRL and EOMs intact bilaterally Neck full ROM and supple Chest Wall inspection of chest normal and palpation of chest normal Chest Narrative: Well-healed midline sternal surgical incision Resp normal respiratory effort and clear to auscultation bilaterally Cardio regular rate, regular rhythm and no murmurs Peripheral Pulses: pulses 2+ throughout GI non-tender and non-distended Auscultation: normoactive bowel sounds Palpation: soft Back/Spine no CVA tenderness General Back: other FROM Extremity normal to inspection General Extremety ED: Negative for edema, pulses abnormal or tenderness General Extremity: Negative for edema or pulses abnormal Neuro oriented x3, CN's II-XII intact bilaterally and no sensory deficits noted Neuro Narrative: No focal deficits Sensorium / Orientation: awake and alert Motor Exam: strength 5/5 throughout Psych mental status grossly normal Skin no rashes or lesions noted and no wounds Heart Score History: Moderately Suspicious ECG: Normal Age: >/= 65 years Risk Factors: >/= 3 Risk Factors or History of CAD Troponin: >1 - <3 Normal Limit Score: 6 MDM MDM MDM Narrative Medical decision making narrative: Patient's EKG is unremarkable, her initial troponin is slightly elevated but her delta actually went up significant enough to require admission for further evaluation. Her 1 view chest x-ray on my interpretation is unremarkable. Initially, considering possibility of esophageal etiology she was given to Mylanta but states it did not help, but then when I offered her some nitroglycerin or something else for pain, she declined saying that the discomfort was almost gone. Blood pressures have remained high but she does not have specific symptoms associated with these. These will be watched but I discussed with hospitalist for admission. I think reasonable to heparinize her at this time. Lab Data Attestation: I reviewed the patient's lab results. Labs: Laboratory Results - last 24 hr 07/02/25 07/03/25 23:42 01:52 WBC 7.5 RBC 3.80 L Hgb 11.3 L Hct 34.6 L MCV 91.1 MCH 29.7 MCHC 32.7 RDW Std Deviation 42.9 RDW Coeff of Lisa 13.0 Plt Count 314 MPV 9.6 Immature Gran % (Auto) 0.400 Neut % (Auto) 59.9 Lymph % (Auto) 23.4 [place] % (Auto) 11.6 H Eos % (Auto) 4.3 Baso % (Auto) 0.4 Absolute Neuts (auto) 4.5 Absolute Lymphs (auto) 1.75 Nucleated RBC % 0 Sodium 134 Potassium 3.9 Chloride 95 L Carbon Dioxide 25.8 Anion Gap 13 BUN 24 H Creatinine 0.72 Estim Creat Clear Calc 55.10 Est GFR (MDRD) Non-Af 84 BUN/Creatinine Ratio 33.6 H Glucose 210 H Calcium 9.7 Troponin T High Sens 19 H Troponin T Hi Sens 2 Hr 60 H* Radiography Diagnostic Testing: Clinical Impression(s) from Imaging Studies Chest X-Ray 07/03/25 00:28 IMPRESSION: No Acute Findings. Reading Location: [facility] Rhythm Strip Rhythm Strip: Sinus Rhythm Rate: 63 Ectopy: None EKG Initial EKG: Attestation: I personally reviewed and interpreted this EKG as follows: Interpretation: Sinus Rhythm, No Acute Injury Pattern and AV Block (1st deg) Comments: RSR'. otherwise unremarkable. nml axis. Management Discussion w/another healthcare provider: Hospitalist Discharge Plan Dx/Rx/DC Orders Clinical Impression: ACS (acute coronary syndrome), Accelerated hypertension Disposition Disposition: Acute Care Hospital [facility]
--- NOTE | 2025-07-03 00:28 | RAD_ITS ---
PROCEDURE: CHEST 1 VIEW (PORTABLE) 07/02/2025 REASON FOR EXAM: CHEST PAIN TECHNIQUE: Frontal view of the chest. COMPARISON: 02/22/2022 FINDINGS: Hardware: Sternotomy wires are present. Heart: The heart size is normal. Lungs: The lungs are clear. No pneumothorax or pleural effusion. Bones: Degenerative changes are identified within the thoracic spine. Bilateral shoulder arthroplasties. RAD/Chest 1 View (Portable) IMPRESSION: No Acute Findings. Reading Location: [facility]
[2025-07-03 00:34] LABS: Hematocrit 34.6 % (37-47); Hemoglobin 11.3 g/dL (12.0-15.0); Immature Granulocytes Count 0.030 X10^3/uL (0.0-0.0); Mean Corp Hgb Conc 32.7 g/dL (32-36); Mean Corpuscular Volume 91.1 fL (81-99); Mean Platelet Vol. 9.6 fl (6.2-12.0); NRBC Flagged by Analyzer 0 % (0-5); Platelet Count 314 K/mm3 (150-450); RBC Distribution Width CV 13.0 % (11.6-14.6); RBC Distribution Width SD 42.9 fl (35.1-43.9); Red Blood Count 3.80 M/mm3 (4.2-5.4); White Blood Count 7.5 K/mm3 (4.4-11.0)
[2025-07-03 01:06] LABS: Troponin T High Sensitivity 19 ng/L (<=14)
[2025-07-03 01:10] LABS: Anion Gap 13 (5-15); BUN 24 mg/dL (4-19); BUN/Creat Ratio 33.6 RATIO (10-20); Calcium,Total 9.7 mg/dL (7.6-11.0); Carbon Dioxide 25.8 mmol/L (21.0-32.0); Chloride 95 mmol/L (98-108); Estimated Creatinine Clearance 55.10 ml/min (50-250); Glucose 210 mg/dL (70-99); Potassium 3.9 mmol/L (3.3-5.1)
[2025-07-03 02:38] LABS: Troponin T High Sens 2 HR 60 ng/L (<=14)
--- NOTE | 2025-07-03 02:58 | PCM.HP.STD ---
HPI - General General Date of Admission: 07/03/25 Date of Service: 07/03/25 Chief Complaint: Chest pain, dyspnea, N/V. HPI Narrative The patient is an 79 y/o F w/ PMHx: Asthma, Obesity, Former tobacco use, GERD, Chronic anemia/Fe deficiency anemia, RLS, HTN, HLD, Valvular heart disease status post AVR, CAD status post PCI 2022, JOSE on CPAP who presents to the [facility] ED on 07/24 with onset at approximately 2200 while attempting to go to bed chest discomfort/heaviness in the substernal region with radiation to the bilateral upper extremity with associated nausea and emesis as well as dizziness in addition to dyspnea with symptoms improving however still ongoing even if at a lesser extent prompting EMS call with ministration of 3 baby aspirin en route to the hospital and further evaluation. Upon evaluation in the ED patient is chest pain-free and denies any current nausea or dyspepsia. Workup in the ED included T98.2, heart rate 62, BP 164/73, respiratory rate 17, 96% on room air with most recent repeat vitals heart rate 72, BP 184/65, respiratory rate 16, 95% room air, CBC with WC 7.5, hemoglobin 11.3, MCV 91.1, platelet 314 without marked shift, BMP with chloride 95, BUN/creatinine 20/0.72, GFR 84, glucose 210, initial troponin 19, repeat delta troponin 60, chest x-ray with no acute cardiopulmonary findings, EKG with sinus rhythm with first-degree AV block with no acute evidence of ischemia. In the ED patient administered Mylanta x 1. PFSH Medical History Asthmatic bronchitis Wears hearing aid Wears glasses Alcohol use Low iron Restless legs CPAP (continuous positive airway pressure) dependence Former smoker Cardiology follow-up encounter History of stress test History of echocardiogram Sleep apnea Generalized OA Atherosclerotic heart disease agdaagux coronary artery w/angina pectoris Nonrheumatic aortic (valve) stenosis Essential (primary) hypertension COVID-19 (08/31/20) Psoriatic arthritis Hyperlipidemia Home Medications ?Medication ?Instructions ?Recorded ?Last Taken ?Type cyanocobalamin (vitamin B-12) 1,000 mcg PO DAILY SUPPLEMENT 02/06/17 05/01/17 History 1,000 mcg tablet aspirin 81 mg tablet,delayed 81 mg PO QDAY [facility] 10/02/17 05/06/23 History release (Adult Low Dose Aspirin) calcium 600 mg (as carbonate)-vit 1 tab PO QDAY vitamin 10/02/17 Unknown History D3 10 mcg (400 unit)-minerals tablet multivitamin 1 tab PO DAILY vitamin 02/02/19 Unknown History acetaminophen 650 mg 1,300 mg PO Q12H arthritis 02/22/22 Unknown History tablet,extended release albuterol sulfate 90 mcg/actuation 2 puff inhalation Q4H PRN 05/17/22 Unknown Rx aerosol inhaler shortness of breath or wheezing #8.5 grams flaxseed oil 1,000 mg capsule 1,000 mg PO DAILY 03/12/23 Unknown History ferrous sulfate 325 mg (65 mg 325 mg PO QDAY 08/31/24 Unknown History iron) tablet pravastatin 40 mg tablet See Rx Instructions .Route 11/05/24 Unknown Rx .COMPLEX #90 tabs ascorbic acid (vitamin C) 1,000 mg 1 g PO QDAY vitamin 12/30/24 Unknown History tablet metoprolol succinate 50 mg 50 mg PO QHS BLOOD PRESSURE #90 02/23/25 Unknown Rx tablet,extended release 24 hr tabs fluticasone furoate 200 1 inh inhalation DAILY #3 ea 03/16/25 Unknown Rx mcg-vilanterol 25 mcg/dose inhalation powder (Breo Ellipta) losartan 50 mg-hydrochlorothiazide 1 tab PO BID #180 tabs 03/23/25 Unknown Rx 12.5 mg tablet trazodone 100 mg tablet 50 mg (1/2 x 100 mg) PO QHS PRN 05/07/25 Unknown Rx insomnia #90 tabs Allergy/AdvReac Type Severity Reaction Status Date / Time meloxicam AdvReac Nausea Verified 07/02/25 23:29 methotrexate AdvReac Nausea Verified 07/02/25 23:29 NSAIDS (Non-Steroidal AdvReac Nausea Verified 07/02/25 23:29 Anti-Inflamma Sulfa (Sulfonamide AdvReac Nausea Verified 07/02/25 23:29 Antibiotics) Family History (Updated 07/03/25 @ 03:[address] Nicolasa Lee MD) Brother Heart disease AV replaced and CABG X 1 CAD (coronary artery disease) CABG x 1 w/ AVR Mother Heart disease Valvular heart disease Heart failure Father Cancer COPD (chronic obstructive pulmonary disease) Surgical History Hx of total knee replacement (~10/13/24) History of cardiac catheterization History of colonoscopy History of coronary artery stent placement (03/02/22) History of left heart catheterization (03/14/17) History of shoulder surgery History of partial colectomy (~2011) H/O aortic valve replacement (04/08/17) Social History household members: none Smoking Status: Former smoker how long ago did patient quit smokin + years ago alcohol intake: current alcohol intake frequency: 0-2 drinks per day Alcohol type: hard liquor substance use type: does not use caffeine: Yes Type: coffee Number of servings: 2 ROS ROS Narrative Admission Review of Systems: CONSTITUTIONAL: No weight loss, fever, chills, + weakness or fatigue. HEENT: + Dizziness. Eyes: No visual loss, blurred vision, double vision or yellow sclerae. Ears, Nose, Throat: No hearing loss, sneezing, congestion, runny nose or sore throat. SKIN: No rash or itching, lesions, wounds. CARDIOVASCULAR: + Chest pain/heaviness, dizziness. Palpitations, edema, orthopnea, syncopal events. RESPIRATORY: + Dyspnea. No cough or sputum, wheezing, hemoptysis. GASTROINTESTINAL: + Episode of nausea and emesis as well as dyspepsia, intermittent constipation chronically. No anorexia currently, abdominal pain, melena, BRBPR. GENITOURINARY: No dysuria, frequency, urgency or retention. NEUROLOGICAL: No headache, dizziness, syncope, paralysis, ataxia, numbness or tingling in the extremities, focal weakness, change in bowel or bladder control, seizure. MUSCULOSKELETAL: + muscle, back pain, joint pain or stiffness. HEMATOLOGIC: + Chronic anemia, no marked easy history of bleeding/bruising. LYMPHATICS: No enlarged nodes. No history of splenectomy. PSYCHIATRIC: No history of depression or anxiety. ENDOCRINOLOGIC: No reports of sweating, cold or heat intolerance. No polyuria or polydipsia. ALLERGIES: + History of asthma. Vital Signs Vital Signs Vital Signs: 07/02/25 23:23 07/02/25 23:31 07/03/25 00:18 Temperature 98.2 F Temperature Source Oral Pulse Rate 62 Respiratory Rate 17 Respiratory Effort Normal Blood Pressure 164/73 H Blood Pressure Mean 103 Pulse Ox 96 Oxygen Delivery Method Room Air Room Air 07/03/25 00:23 07/03/25 01:00 07/03/25 02:00 Temperature Temperature Source Pulse Rate 68 68 72 Respiratory Rate 18 16 16 Respiratory Effort Blood Pressure 194/67 H 152/81 H 184/65 H Blood Pressure Mean 109 104 104 Pulse Ox 95 96 95 Oxygen Delivery Method Room Air Room Air Room Air 07/03/25 02:54 Temperature Temperature Source Pulse Rate 71 Respiratory Rate 16 Respiratory Effort Blood Pressure 188/71 H Blood Pressure Mean 110 Pulse Ox 97 Oxygen Delivery Method Room Air Weight Weight: 175 lb 7.807 oz Body Mass Index (BMI) 31.1 Physical Exam Narrative Physical Examination: General: Awake, alert, oriented x 3 and cooperative, seated upright in the ED bed, fatigued but no acute distress, mildly hard of hearing, denies any chest discomfort at this time. Skin: Normal color, normal turgor, no icterus, no cyanosis. HEENT: AT/NC, EOMI, PERRLA, mildly dry MM, no carotid bruits or JVD noted. Lungs: Mildly diminished, greater bases, proper effort, no rales, ronchi or wheezing. Heart: Regular rate and rhythm; no gallop, rub audible. Abdomen: Soft, obese, NTTP, ND, hyperactive BS, no HSM. Extremities: No cyanosis, clubbing, or edema. Neurological: Patient awake, alert, oriented as noted, cognitive function intact; pupils equally reactive to light and accommodation, cranial nerves grossly normal, moving all 4 extremities, no focal deficits, strength mildly moderately globally decreased secondary to acute presentation. Psychiatric: Affect appears fatigued otherwise normal, no acute evidence of depressive or anxiety feelings. Results Lab / Micro Data 07/02/25 23:42 07/02/25 23:42 Labs: Laboratory Results - last 24 hr 07/02/25 23:42: WBC 7.5, RBC 3.80 L, Hgb 11.3 L, Hct 34.6 L, MCV 91.1, MCH 29.7, MCHC 32.7, RDW Std Deviation 42.9, RDW Coeff of Lisa 13.0, Plt Count 314, MPV 9.6, Immature Gran % (Auto) 0.400, Neut % (Auto) 59.9, Lymph % (Auto) 23.4, [place] % (Auto) 11.6 H, Eos % (Auto) 4.3, Baso % (Auto) 0.4, Absolute Neuts (auto) 4.5, Absolute Lymphs (auto) 1.75, Nucleated RBC % 0, Sodium 134, Potassium 3.9, Chloride 95 L, Carbon Dioxide 25.8, Anion Gap 13, BUN 24 H, Creatinine 0.72, Estim Creat Clear Calc 55.10, Est GFR (MDRD) Non-Af 84, BUN/Creatinine Ratio 33.6 H, Glucose 210 H, Calcium 9.7, Troponin T High Sens 19 H 07/03/25 01:52: Troponin T Hi Sens 2 Hr 60 H* Rhythm Strip Rhythm Strip: Sinus Rhythm Rate: 63 Ectopy: None Imaging Radiology Impression Chest X-Ray 07/03/25 00:28 IMPRESSION: No Acute Findings. Reading Location: [facility] Assessment & Plan Assessment/Plan (1) ACS (acute coronary syndrome): PLAN: Plan The patient is an 79 y/o F w/ PMHx: Asthma, Obesity, Former tobacco use, GERD, Chronic anemia/Fe deficiency anemia, RLS, HTN, HLD, Valvular heart disease status post AVR, CAD status post PCI 2022, JOSE on CPAP who presents to the [facility] ED on 07/24 with onset at approximately 2200 while attempting to go to bed chest discomfort/heaviness in the substernal region with radiation to the bilateral upper extremity with associated nausea and emesis as well as dizziness in addition to dyspnea with symptoms improving however still ongoing even if at a lesser extent prompting EMS call with ministration of 3 baby aspirin en route to the hospital and further evaluation. #1. Chest Pain with indeterminate cardiac enzyme of unclear significance with concern for ACS: EKG in ED with sinus rhythm with first-degree AV block with no acute evidence of ischemia, CXR w/ no acute cardiopulmonary findings, initial trop 19 with repeat delta troponin 60. Will admit to PCU, place on a monitored bed to assure no acute myocardial infarction with serial cardiac enzymes and EKGs. Given patient underlyig history and concerning clinical presentation, will initiate on heparin drip and will request Cardiology evaluation for consider cardiac catheterization. Will maintain on judicious hydration. ECHO requested. Magnesium level requested. FLP in AM. ASA, NG, morphine. #2. Hyperglycemia without diabetic history: Admission glucose 210, no diabetic history, will obtain hemoglobin A1c be cautious. #3. CAD: s/p TDG-SIT-Shrm LAD at D2 bifurcation w/ 3.5 x 18 mm [facility] Stent and POBA-D2 03/02/22, continue aspirin, statin, metoprolol, losartan home regimen. #4. Valvular heart disease: s/p # 21 Trifecta Valve @ [facility] [address] [place], most recent echocardiogram 03/26/2025 with normal LV size, LV systolic function normal, LVEF 60%, PASP 36 mmHg, bioprosthetic AV present, mean aortic valve gradient 17 mmHg. Repeat requested given #1. #5. Chronic Kidney Disease Stage II per GFR trending: Admission BUN/Cr 20/0.72, GFR 84, baseline renal function primarily 0.5-0.8, repeat BMP in AM. #6. Chronic normocytic anemia/iron deficiency anemia: Admission hemoglobin 11.3, MCV 91.1, baseline hemoglobin more recently primarily 11-12 range, stable, continue to trend, continue iron supplementation. #7. Asthma: Will temporally hold home inhaler in the interim placed on ATC budesonide therapy, PRN albuterol, HOB, IS parameters. #8. Hypertension: Continue home regimen including metoprolol, losartan, hydrochlorothiazide with hold parameters as needed, PRN hydralazine. #9. Hyperlipidemia: Continue home statin regimen. AM FLP. #10. Former tobacco use: Encourage continued tobacco cessation. #11. Obesity: Weight loss and lifestyle changes encouraged. #12. JOSE: CPAP nightly. #13. DVT prophylaxis: Heparin drip as noted. #14. CODE status: Patient ZULEIMA is her son she believes and living will is currently in place. Discussed CODE status at length including difference between FULL code, DNR-CCA and DNR-CC status. Following discussions about the differences in these status, requested Full Code status. Advanced Care Planning Face to Face Time: 16 minutes. Charges/Coding Visit Charges Inpatient E&M: 11404 Init Hosp L3 Procedures Hospitalists Procedures: 31345 Advncd Care Plan 30 Min
--- NOTE | 2025-07-03 03:04 | EKG12_ITS ---
Test Reason : CP ADMIT Blood Pressure : */* mmHG Vent. Rate : 66 BPM Atrial Rate : 66 BPM P-R Int : 224 ms QRS Dur : 98 ms QT Int : 416 ms P-R-T Axes : 66 19 59 degrees QTcB Int : 436 ms Sinus rhythm with 1st degree A-V block Possible Left atrial enlargement Cannot rule out Anteroseptal infarct , age undetermined Abnormal ECG When compared with ECG of 02-Jul-2025 23:26, MANUAL COMPARISON REQUIRED DATA IS UNCONFIRMED Confirmed by ALEXANDRA DOOLEY, ANI ([id number]), editor publications [employer] [id number]) on 07/05/2025 8:44:31 AM Referred By: BETTINA Confirmed By: ANI MORRIS MD
--- OUTSIDE RECORDS SUMMARY | 2025-07-03 03:16 | XMS RPT_ITS | CCD ---
Author Organization [facility] Team Providers Care Nuclear Physicist Name Role Phone Breonna Marrero Unavailable Unavailable [...] Provider Dr. Bill Salas Attending Provider Rex RESIDENTIAL CARE OFFICER, RESIDENTIAL CARE OFFICER-C Paul Ferguson Attending Provider Dr. Saqib Juárez Primary Care Provider Dr. Saqib Juárez Attending Provider [phone] Dr. Saqib Juárez Referring Provider [phone] Dr. Jairon Banks Attending Provider Dr. Saqib Juárez Primary Care Provider Dr. Yong Mora Attending Provider Dr. Saqib Juárez Referring Provider [phone] Vikash RESIDENTIAL CARE OFFICER, RESIDENTIAL CARE OFFICER-C Rosibel Attending Provider Dr. Saqib Juárez Primary Care Provider Dr. Saqib Juárez Referring Provider [phone] Dr. Yong Mora Attending Provider Vikash RESIDENTIAL CARE OFFICER, RESIDENTIAL CARE OFFICER-C Rosibel Referring Provider Dr. Saqib Juárez Primary Care Provider Dr. Saqib Juárez Referring Provider [phone] Dr. Saqib Juárez Attending Provider [phone] Dr. Saqib Juárez Primary Care Provider Dr. Saqib Juárez Referring Provider [phone] Dr. Jairon Banks Attending Provider Suh RESIDENTIAL CARE OFFICER, RESIDENTIAL CARE OFFICER-C Rosibel Attending Provider [phone] Vikash RESIDENTIAL CARE OFFICER, RESIDENTIAL CARE OFFICER-C Rosibel Referring Provider [phone] Dr. Saqib Juárez Attending Provider [phone] Rex RESIDENTIAL CARE OFFICER, RESIDENTIAL CARE OFFICER-C Paul Ferguson Attending Provider Dr. Saqib Juárez Primary Care Provider Dr. Saqib Juárez Referring Provider Rex RESIDENTIAL CARE OFFICER, RESIDENTIAL CARE OFFICER-C Paul Ferguson Attending Provider Dr. Jairon Banks Attending Provider Dr. Bill Salas Attending Provider Dr. Bill Salas Other Provider Dr. Saqib Juárez Primary Care Provider Dr. Saqib Juárez Attending Provider Dr. Saqib Juárez MD Primary Care Provider Dr. Saqib Juárez MD Attending Provider Dr. Saqib Juárez MD Referring Provider Roof RESIDENTIAL CARE OFFICER-C, Paul Ferguson Attending Provider Cedrick ARBOLEDA, Deondre Guzman Attending Provider Carina DOOLEY, Dr. Daniel Guzman Attending Provider Carina DOOLEY, Dr. Daniel Guzman Referring Provider Meena DOOLEY, Dr. Ibarra Primary Care Provider [phone] Meena DOOLEY, Dr. Ibarra Referring Provider Meena DOOLEY, Dr. Ibarra Attending Provider Vikash RESIDENTIAL CARE OFFICER-C, Rosibel Attending Provider Abby DOOLEY, Dr. Beach Attending Provider Abby DOOLEY, Dr. Beach Referring Provider [phone] Meena DOOLEY, Dr. Ibarra Primary Care Provider [phone] Meena DOOLEY, Dr. Ibarra Attending Provider Meena DOOLEY, Dr. Ibarra Referring Provider Meena DOOLEY, Dr. Ibarra Primary Care Physician Meena DOOLEY, Dr. Ibarra Referring Provider Vikash RESIDENTIAL CARE OFFICER-C, Rosibel Attending Physician Abby DOOLEY, Dr. Beach Attending Physician Meena DOOLEY, Dr. Ibarra Attending Physician [phone] Meena, Saqib Primary Care Unavailable Daniel Lim Attending Unavailable Daniel Lim Referring Unavailable MeenaSaqib Attending Unavailable Meena, Saqib Primary Care Unavailable Meena, Saqib Attending Unavailable Meena, Saqib Referring Unavailable Meean, Saqib Primary Care Unavailable Abby, Yong Attending Unavailable Abby, Yong Referring Unavailable Meena, Saqib Primary Care Unavailable Meena, Saqib Primary Care Unavailable Suh RESIDENTIAL CARE OFFICER, Rosibel Attending Unavailable Suh RESIDENTIAL CARE OFFICER, Rosibel Referring Unavailable Meena, Saqib Attending Unavailable Menea, Saqib Primary Care Unavailable Suh RESIDENTIAL CARE OFFICER, Rosibel Attending Unavailable Meena, Saqib Referring Unavailable Meena, Saqib Primary Care Unavailable Abby, [place] Attending Unavailable Meena, Saqib Primary Care Unavailable [...] Attending Unavailable Obed Medina Referring Unavailable Vikash RESIDENTIAL CARE OFFICER-CRosibel Referring Provider Allergies Allergy Classification Reported Allergen(s) Allergy Type Date of Onset Reaction(s) Facility (5 sources) atorvastatin Drug Allergy 7 myalgia [facility] Work Phone: [phone] (20 sources) meloxicam; Translations: [meloxicam] Drug Allergy 7 Nausea [facility] Work Phone: [phone] (20 sources) methotrexate; Translations: [methotrexate] Drug Allergy 7 Nausea [facility] Work Phone: [phone] (5 sources) NSAIDs drug allergy 7 GI symptoms [facility] Work Phone: [phone] (5 sources) Sulfonamides (Antibiotic) drug allergy 7 Nausea [facility] Work Phone: [phone] (20 sources) Sulfonamides (Antibiotic); Translations: [Sulfa (Sulfonamide Antibiotics)] Propensity to adverse reactions 2 Nausea [facility] (20 sources) NSAIDS (Non-Steroidal Anti-Inflamma; Translations: [NSAIDS (Non-Steroidal Anti-Inflamma] Propensity to adverse reactions 2 Nausea [facility] Medications Current Medications Medication Drug Class(es) Dates [...] 06, 2017 12:00am February 22, 2022 11:35am [id number] 200 actuat albuter ol 0.09 mg/actuat metered dose inhaler (20 sources) beta2-Adrenergic Agonist Start: 02-23-2021 End: 05-17-2022 Start: 02-23-2021 End: 05-17-2022 take 1 puff(s) by inhalation every four hours Albuterol Sulfate Active 2 PUFF INHALATION Q4H 8.5 May 17, 2022 7:14am administer with spacer Start: 04-29-2017 End: 05-21-2017 VENTOLIN HFA 108 (90 Base) M CG/ACT AERS As needed - 90mcg/inh ALBUTEROL SULFATE [id number] Wil Rivas MD Start: 04-16-2017 End: 10-02-2017 [...] tablet by mouth twice daily ASCORBIC ACID [id number] Breonna Marrero Start: 04-30-2017 take 3 tablets by mo [facility] twice daily VITAMIN C 1000 MG TABS Three tablets by mouth twice a day ASCORBIC ACID 23184789550 Stefania Little RN aspirin 81 mg delayed release oral tablet (20 sources) Nonsteroidal Anti-inflammatory Drug Start: 10-02-2017 Start: 05-07-2017 take 1 tablet by sage th once daily ASPIRIN EC 81 MG TBEC One tablet by mouth daily ASPIRIN [id number] Breonna Marrero Start: 04-29-2017 End: 04-30-2017 take 1 tablet by mouth once daily ASPIRIN EC 81 MG TBEC One tablet by mouth daily ASPIRIN 10479384086 Stefania Little RN calcium carbonate 600 mg / cholecalciferol 0.01 mg oral tablet (20 sources) Vitamin D Start: 10-02-2017 Redmon 1-Qoz-Urd-Fish Oil (20 sources) Start: 02-22-2022 take 300-1000 mg by mouth once daily [place] 6-Agy-Hfn-Fish Oil (Fish Oil) 300-1,000 mg capsule Active 1 CAP PO DAILY February 22, 2022 11:34am Start: 02-22-2022 End: 03-12-2023 Redmon 9-Tdk-Svo-Fish Oil (Fi sh Oil) 300-1,000 mg capsule Discontinued 1 NMA PO DAILY February 22, 2022 12:00am March 12, 2023 10:45am supplement Start: 02-22-2022 End: 03-12-2023 Redmon 5-Qms-Rzy-Fish Oil (Fi sh Oil) 300-1,000 mg capsule Discontinued 1 NMA PO DAILY February 22, 2022 12:00am March 12, 2023 10:45am Start: 02-22-2022 End: 03-12-2023 take 300-1000 mg by mouth once daily Red[place] 1-Lha-Jjq-Fish Oil (Fish Oil) 300-1,000 mg capsule Discontinued 1 CAP PO DAILY February 22, 2022 12:00am March 12, 2023 10:45am Start: 02-22-2022 take 300-1000 mg by mouth once daily Redmon 5-Cul-Pcy-Fish Oil (Fish Oil) 300-1,000 mg capsule Active 1 CAP PO DAILY February 21, 2022 11:00pm Start: 02-22-2022 take 300-1000 mg by mouth once daily Redmon 4-Okk-Itm-Fish Oil (Fish Oil) 300-1,000 mg capsule Active [...] Start: 03-12-2023 take 1 capsule by mo [facility] once daily Start: 02-06-2017 End: 02-22-2022 take [...] mouth 1 hr prior to procedure AMOXICILLIN [id number] Wil Rivas MD amoxicillin 500 mg / clavulanate 125 mg oral tablet (10 sources) Penicillin-class Antibacterial Start: 04-30-2017 End: 05-07-2017 take 1 tablet by mouth twice daily AUGMENTIN 500-125 MG TABS One tablet by mouth twice daily AMOXICILLIN-POT CLAVULANATE 15332586464 Sidra Madrid RN atorvastatin 40 mg oral [...] One tablet by mouth daily ATORVASTATIN CALCIUM 88051911388 Breonna Marrero Start: 04-16-2017 End: 05-02-2017 take [...] BENZONATATE 100 MG CAPS as needed BENZONATATE 71390951263 Breonna Marreor Start: 05-04-2017 End: 10-02-2017 take 2 capsules [...] tablet by mouth daily CALCIUM CARBONATE TABS 56860835318 Evelin Kulkarni RN Start: 04-29-2017 End: 05-07-2017 take 1 tablet by mouth once daily CALCIUM CARBONATE TABS One tablet by mouth daily CALCIUM CARBONATE TABS 59689935227 Breonna Marrero Start: 02-06-2017 End: 10-02-2017 take [...] TABS One tablet by mouth daily CHOLECALCIFEROL 64225678908 Evelin Kulkarni RN ciprofloxacin 500 mg oral [...] One tablet by mouth daily DOCUSATE SODIUM 17518159572 Wil Rivas MD esomeprazole 20 mg delayed [...] tablet by mouth daily FLAXSEED (LINSEED) CAPS 67102969980 Evelin Kulkarni RN Fluad Quad 9717-2880(65yr up)(PF) 60 mcg (15 mcg x 4)/0.5mL [...] CONGESTION 100 MG/5ML SYRP As needed GUAIFENESIN 81121977619 Wil Rivas MD hydroCHLOROthiazide 12.5 mg oral [...] TABS One tablet by mouth daily HYDROCHLOROTHIAZIDE 51754455490 Wil Rivas MD hydroCHLOROthiazide 12.5 mg / [...] TABS One tablet by mouth daily LISINOPRIL-HYDROCHLOROTHIAZIDE 26304323433 Evelin Kulkarni RN hydroCHLOROthiazide 12.5 mg / [...] % PTCH remove & reapply daily LIDOCAINE 09290177074 Stefania Little RN losartan potassium 50 mg [...] One tablet by mouth daily LOSARTAN POTASSIUM 88986945181 Wil Rivas MD Start: 08-05-2017 take 1 tablet by sage once daily LOSARTAN POTASSIUM 50 MG TABS One tablet by mouth daily LOSARTAN POTASSIUM 17756616929 Stefania Barone PA-C magnesium oxide 400 mg [...] tablet by mouth twice daily MAGNESIUM OXIDE 78828375889 Stefania Little RN melatonin 10 mg oral [...] One tablet by mouth daily MULTIPLE VITAMINS-MINERALS 53190239456 Breonna Marrero Start: 04-30-2017 take 1 tablet by sage once daily MULTIVITAMIN ADULT TABS One tablet by mouth daily MULTIPLE VITAMINS-MINERALS 81158623405 Stefania Little RN Multivitamin 1 EACH tablet [...] tablet by mouth at bedtime. PRAVASTATIN SODIUM 32835249339 Wil Rivas MD predniSONE 10 mg oral [...] 1 tablet every 4 hours. TRAMADOL HCL 12479465253 Wil Rivas MD Start: 04-12-2017 End: 10-02-2017 [...] % OINT Apply as directed TRIAMCINOLONE ACETONIDE 48411633938 Stefania Little RN B COMPLEX VITAMINS (10 sources) Start: 04-30-2017 End: 05-07-2017 take 1 tablet by mouth once daily VITAMIN B COMPLEX TABS One tablet by mouth daily B COMPLEX VITAMINS 69444883803 Breonna Marrero Start: 04-30-2017 take 1 tablet by sage th once daily VITAMIN B COMPLEX TABS One tablet by mouth daily B COMPLEX VITAMINS 51138077061 Stefania Little RN Vitamin B Complex (B [...] Coronary atherosclerosis; Translations: [Atherosclerotic heart disease of [place] coronary artery with unspecified angina pectoris] Onset: 04-29-2025 Chronic Comment on above: FSV-PNI-Hlad LAD at D2 bifurcation w/ 3.5 x 18 mm [facility] Stent and POBA-D2 03/02/22; Coronary atherosclerosis [...] # 21 Trifecta Valve @ [facility] Dr Sutherland Immunizations and screening for [...] (10 sources) Long-term drug therapy; Translations: [Other prison (current) drug therapy] Onset: 04-29-2017 05-01-2017 Unclassified [...] Facility Pulmonary Visit Reporton Pulmonary Visit Report [facility] [address] [place] [address] OFFICE VISIT Date of Service: 06/16/25 MR#: [id number] Acct: [id number] Name: KARYN MULLER Rep #: [id number] : 1945 Provider: ROE Suh Age/Sex: 79/F [facility] Status: Signed Assessment and Plan Assessment and [...] Additional Comments: This note was generated with [employer] dictation software. It may contain incorrect words, [...] 3 M FU Chief Complaint: Cough, Congestion Arabic Teacher Required: No DME Vendor: Eben Accompanied by: [...] Q12H ar (more content not included)... Normal [facility] MR/BMS.ARNULFOBon 04-29-2025 MR/BMS.IMB [facility] [address] [place] [address] OFFICE VISIT Date of Service: 04/29/25 MR#: [id number] Acct: [id number] Name: KARYN MULLER Rep #: [id number] : 1945 Provider: Dr. Saqib joya MD Age/Sex: 79/F Location: [facility] Status: Signed Intake Vital Signs 03/23/25 14:28 [...] Reasons: Cough, Congestion Chief Complaint: Cough, Congestion Arabic Teacher Required: No Accompanied by: Self Is patient [...] counseling Generalized OA Diverticulitis Atherosclerotic heart disease [place] coronary artery w/angina pectoris Nonrheumatic aortic (valve) [...] Cough, Congesti (more content not included)... Normal [facility] Echocardiogram study reportO rdered By: Yong Mora on 03-30-2025 Study report [facility] [address] [place] [address] Echo Complete 03/26/25 1110 MR#: [id number] Acct: [id number] Name: KARYN MULLER Rep #:[id number] : 1945 79 From: Yong Duncan Attending Dr: Dr. Yong Mora MD S tatus: REG CLI Ordering Dr: Yong Mora MD Date: Location: [facility] Sex: F C Admitted: Reason [...] Dictated: 03/26/25 1110 Date Transcribed: 03/30/25 104 Airline Reservationist: Signed [facility] Work Phone: Echo Completeon 03-26-2025 Echo Complete [facility] [address] [place] [address] Echo Complete 03/26/25 1110 MR#: [id number] Acct: [id number] Name: KARYN MULLER Rep #: [id number] : 1945 79 From: Yong Mora MD Attending Dr: Dr. Yong Mora MD Status: REG C KANNAN Ordering Dr: Yong Mora MD Date: 03/26/25 Location: [facility] Sex: F C Admitted: Reason [...] Dictated: 03/26/25 1110 Date Transcribed: 03/30/25 1049 Airline Reservationist: Signed Normal [facility] Cardiology Visit Reporton Cardiology Visit Report [facility] [address] [place] [address] OFFICE VISIT Date of Service: 03/23/25 MR#: [id number] Acct: [id number] Name: KARYN MULLER Rep #: [id number] : 1945 Provider: Dr. Yong Mora MD Age/Sex: 79/F Location: [facility] Status: Signed HPI HPI History of Present Illness Details: This is a 79-year-old female who presents for a cardiovascular outpatient follow-up. She has a cardiovascular history of aortic valve replacement with a bioprosthetic #21 trifecta valve at [facility] in [place] [address] Sutherland. [...] air Intake Visit Reasons: 1 Y FU Arabic Teacher Required: No Accompanied by: Self Is patient [...] you fallen in the past year?: No [facility] Medical History Left hip pain Pruritus Preop exam for internal medicine Wears hearing aid Wears glasses Alcohol use Low iron Restless legs Heartburn CPAP (continuous positive airway pressure) dependence Former smoker Liliane (more content not included)... Normal [facility] Pulmonary Visit Reporton Pulmonary Visit Report [facility] [place] [address] [place] [address] OFFICE VISIT Date of Service: 03/16/25 MR#: [id number] Acct: [id number] Name: KARYN MULLER Rep #: [id number] : 1945 Provider: ROE Suh Age/Sex: 79/F Location: [facility] Status: Signed Assessment and [...] Additional Comments: This note was generated with [employer] dictation software. It may contain incorrect words, [...] 1 Y FU Chief Complaint: Groin Pain Arabic Teacher Required: No DME Vendor: Eben Accompanied by: [...] #8.5 grams (more content not included)... Normal [facility] PT D/C Summary (1)on 025 PT D/C Summary (1) [facility] Physical Therapy [facility] [address] [place] [address] / REHABILITATION SERVICES DISCHARGE SUMMARY MR#: [id number] Acct: [id number] Name: KARYN MULLER Rep #: [id number] : 1945 79 From: Sonu Mast PT, ATC Referring Dr.: Dr. Saqib Juárez MD Status: R EG RCR Insurance: MEDICARE PART A B [facility] Discharge Summary D/C summary: It has [...] please feel free to call me at [phone]. Thank you for the referral of this patient. Sincerely, Sonu Mast, PT, ATC Balance/Gait/Functional tests Balance/Special Test Scores Lower Extremity Functional Score: 45 01/22/25 1001 CC: Dr. Saqib Juárez MD [facility] Signed Normal [facility] MR/BMS.Murphy 12-30-2024 MR/BMS.ARNULFOB [facility] [address] [place] [address] OFFICE VISIT Date of Service: 12/30/24 MR#: [id number] Acct: [id number] Name: KARYN MULLER Rep #: [id number] : 1945 Provider: Dr. Saqib joya MD Age/Sex: 79/F Location: [facility] Status: Signed Intake Vital Signs 12/01/24 14:34 [...] Reasons: Groin Pain Chief Complaint: Groin Pain Arabic Teacher Required: No Accompanied by: Self Is patient [...] counseling Generalized OA Diverticulitis Atherosclerotic heart disease [place] coronary artery w/angina pectoris Nonrheumatic aortic (valve) [...] well with that. She has completed physical design engineer (more content not included)... Normal [facility] PT D/C Summary (1)on 025 PT D/C Summary (1) [facility] Physical Therapy [facility] [address] [place] [address] [address] [place] [address] / REHABILITATION SERVICES DISCHARGE SUMMARY MR#: [id number] Acct: [id number] Name: KARYN MULLER Rep #: [id number] : 1945 79 From: Sonu Mast PT, ATC Referring Dr.: Dr. Daniel Lim MD Status: R EG RCR Insurance: MEDICARE PART A B [facility] Discharge Summary D/C summary: It has [...] please feel free to call me at [phone]. Thank you for the referral of this patient. Sincerely, Sonu Mast, PT, ATC Balance/Gait/Functional tests Balance/Special Test Scores Lower Extremity Functional Score: 27 WOMAC Total Score: 20 WOMAC Percentage: 79.1700 Improvement % Improvement: 90 12/04/24 1233 CC: Dr. Daniel Lim MD; Dr. Saqib Juárez MD [facility] Signed Normal [facility] Urine Cultureon 12-03-2024 URC Presumptive E. coli [place] Count >100,000 Presumptive E. coli: REACTION Ampicillin [...] TMP SMX Islt DEBORA <=20 S Normal [facility] Comment on above: Performed By: #### M 100.6689 #### [facility] Laboratory [address] [place], [place], [id number] Laboratory - Chemistry and C hemistry - challengeOrdered By: Deondre Philip on 12-01-2024 Bilirubin Ql (U) Negative [facility] Glucose Ql (U) Negative [facility] Ketones Ql (U) Trace (5) [facility] pH (U) 6.5 [pH] [facility] Specific gravity (U) [Rel density] 1.015 [facility] Urobilinogen (U) [Mass/Vol] 1 mg/dL [facility] Laboratory - Hematology and Cell countsOrdered By: Deondre Philip on 12-01-2024 Hemoglobin Ql (U) Negative [facility] Laboratory - Specimen inform ationOrdered By: Deondre Philip on 12-01-2024 Clarity (U) Clear [facility] Color (U) Yellow [facility] Laboratory - UrinalysisOrder ed By: Deondre Philip on 12-01-2024 Nitrite Ql (U) Positive [facility] Protein Ql (U) Trace [facility] No Panel InformationOrdered By: Deondre Philip on 12-01-2024 Urine Leukocytes Positive [facility] Comment on above: moderate Urine Non-Hemolyzed Blood Negative [facility] Urgent Care Visit Reporton 0 12-01-2024 Urgent Care Visit Report [facility] [address] , [address] [place] [id number] OFFICE VISIT Date of Service: 12/01/24 MR#: [id number] Acct: [id number] Name: KARYN MULLER Rep #: [id number] : 1945 Provider: ROBLES Bañuelos Age/Sex: 79/F Location: [facility] Status: Signed Intake Vital [...] has been going on for 3.5 days. [facility] Medical History Pruritus Preop exam for internal medicine Wears hearing aid Wears glasses Alcohol use Low iron Restless legs Heartburn CPAP (continuous positive airway pressure) dependence Former smoker Shortness of breath on exertion Cardiology follow-up encounter History of stress test History of echocardiogram Sleep apnea Bereavement due to life event Bereavement counseling Generalized OA Diverticulitis Atherosclerotic heart disease [place] coronary artery w/angina pectoris Nonrheumatic aortic (valve) [...] on exertion/mid- (more content not included)... Normal [facility] Urine cultureOrdered By: Larry Philip on 12-01-2024 Bacteria identified Cx Nom (U) Presumptive E. coli Abnormal [facility] Inital Evaluation (1) - PTon 11-04-2024 Inital Evaluation (1) - PT [facility] Physical Therapy [facility] [address] [place] [address] / REHABILITATION SERVICES INITIAL EVALUATION MR#: [id number] Acct: [id number] Name: KARYN MULLER Rep #: [id number] : 1945 79 From: Sonu Mast PT, ATC Referring Dr.: Dr. 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 2/10 pain while sitting here [...] to be FAXED BACK to us at [phone] for Medicare purposes. For Medicare only, by signing this I certify the plan of care. Please let me know if there are questions or concerns regarding this plan of care. Physician Signature: Date: 11/04/24 1429 CC: Dr. Daniel Lim MD; Dr. Saqib Juárez MD [facility] Signed Normal [facility] Cardiology Visit Reporton Cardiology Visit Report [facility] [address] [place], [place] [address]. [address] [place] [address] OFFICE VISIT Date of Service: 08/31/24 MR#: [id number] Acct: [id number] Name: KARYN MULLER Rep #: [id number] : 1945 Provider: ROE portillo Age/Sex: 79/F Location: [facility] Status: Signed HPI HPI History of Present Illness Details: This is a 79-year-old female who presents for a cardiovascular outpatient follow-up. She has a cardiovascular history of aortic valve replacement with a bioprosthetic #21 trifecta valve at [facility] in [place] [address] Sutherland. [...] room air Intake Visit Reasons: 6 M Arabic Teacher Required: No Is patient in pain?: No [...] got home BP 190/80's. Gradually went down. [facility] Medical History Pruritus Preop exam for internal medicine Wears hearing aid Wears glasses Alcohol use Low iron Restless legs Heartburn CPAP (continuous positive airway pressure) dependence F (more content not included)... Normal [facility] MR/BMS.[facility] 08-17-2024 MR/BMS.B [facility] [address] [place] [address] OFFICE VISIT Date of Service: 08/17/24 MR#: [id number] Acct: [id number] Name: KARYN MULLER Rep #: [id number] : 1945 Provider: Dr. Saqib joya MD Age/Sex: 79/F Location: [facility] Status: Signed with Addenda ADDENDUM by Dr. Saqib Juárez MD on 09/17/24 at 0957 HPI Details: KARYN MULLER, is a 79 F who presents to the office today for Assessment and Plan Assessment and Plan (1) Preop exam for internal medicine: Status: Acute (2) History of coronary artery stent placement: Status: Acute Comment: [id number] LAD at D2 bifurcation w/ 3.5 x 18 mm [facility] Stent and POBA-D2 03/02/22; (3) Nonrheumatic aortic (valve) stenosis: Status: Chronic (4) H/O aortic valve replacement: Status: Chronic Comment: # 21 Trifecta Valve @ [facility] Dr [place] (5) Essential (primary) hypertension: [...] be having total knee replacement, Dr. Lim, [facility] on October 07, 2024. At this time I have no specific reason why she cannot proceed to surgery. She is previously already for this surgery, had cardiac clearance. EKG from [facility], dated 09/16/2024 shows old age-indeterminate anteroseptal [...] Intake Visit Reasons: Rash Chief Complaint: rash Arabic Teacher Required: No Accompanied by: Self Is patient [...] (continuous posit (more content not included)... Normal [facility] PT D/C Summary (1)on 024 PT D/C Summary (1) [facility] Physical Therapy [facility] [address] [place] [address] / REHABILITATION SERVICES DISCHARGE SUMMARY MR#: [id number] Acct: [id number] Name: KARYN MULLER Rep #: [id number] : 1945 78 From: Benny Bird DPT, OCS, CSCS Referring Dr.: Dr. Obed Medina DO Status: R EG RCR Insurance: MEDICARE PART A B [facility] Discharge Summary D/C summary: It has [...] doing well and will get back to [facility] after her recent [place] vacation and [...] please feel free to call me at [phone]. Thank you for the referral of this patient. Sincerely, Benny Bird, DPT, OCS, CSCS Balance/Gait/Functional tests Balance/Special Test Scores Lower Extremity Functional Score: 42 Improvement % Improvement: 40 07/13/24 0929 CC: Dr. Obed Medina, DO; Dr. Saqib Juárez MD EBG Signed Normal [facility] Absolute lymphocyte countOrd ered By: Saqib Juárez on 02-03-2024 Lymphocytes Auto (Unsp spec) [#/Vol] 1.37 10*3/uL 0.83-4.51 [facility] Automated lymphocyte count a s percentage of total leukocytesOrdered By: Saqib Juárez on 02-03-2024 Lymphocytes/100 WBC Auto (Unsp spec) 20.0 % 19-41 [facility] Basophil percentageOrdered B y: Saqib Juárez on 02-03-2024 Basophils/100 WBC (Bld) 0.4 % 0-1 [facility] Bilirubin [Mass/Vol] 0.40 mg/dL 0.20-1.00 [facility] Comment on above: For patients on eltr ombopag therapy, use of Dimension [place] TBIL is not recommended. Chloride [Moles/Vol] 98 mmol/L 98-107 [facility] Cholesterol [Mass/Vol] 176 mg/dL <200 [facility] Comment on above: <200 mg/dL Desirable 200-240 mg/dL Borderline >240 mg/dL High Risk Eosinophils/100 WBC (Bld) 3.6 % 0-5 [facility] Glucose [Mass/Vol] 141 mg/dL 74-[address] [facility] Comment on above: Fasting Glucose resu lt greater than or equal to 126 mg/dL suggests DIABETES MELLITUS per A.D.A. criteria. Hemoglobin (Bld) [Mass/Vol] 12.4 g/dL 12.0-15.0 [facility] Monocytes/100 WBC (Bld) 10.6 % 0-10 [facility] Neutrophils (Bld) [#/Vol] 4.5 10*3/uL 2.0-7.7 [facility] Neutrophils/100 WBC (Bld) 65.0 % 47-70 [facility] Potassium [Moles/Vol] 3.8 mmol/L 3.5-5.1 [facility] Protein [Mass/Vol] 7.1 g/dL 6.4-8.[address] [facility] Sodium [Moles/Vol] 133 mmol/L 136-[address] [facility] Triglyceride [Mass/Vol] 151 mg/dL <199 [facility] Comment on above: The drugs N-Acetylcy steine and Metamizole may falsely depress this assay.Serum Triglycerides Reference Interval Normal <150 mg/dL Borderline high 150 - 199 mg/dL High 200 - 499 mg/dL Very High > or = 500 mg/dL WBC (Bld) [#/Vol] 6.9 10*3/uL 4.4-11.[address] [facility] Determination of erythrocyte mean corpuscular volume (MCV)Ordered By: Saqib Juárez on 02-03-2024 MCV (RBC) [Entitic vol] 92.6 fL 81-99 [facility] Erythrocyte distribution wid th ratioOrdered By: Saqib Juárez on 02-03-2024 Erythrocyte distribution width (RBC) [Ratio] 13.1 % 11.6-14.6 [facility] Erythrocyte distribution wid th standard deviationOrdered By: Saqib Juárez on 02-03-2024 Erythrocyte distribution width (RBC) [Entitic vol] 44.0 fL 35.1-43.9 [facility] Hematocrit Auto (Bld) [Volum e fraction]Ordered By: Saqib Juárez on 02-03-2024 Hematocrit (Bld) [Volume fraction] 37.7 % 37-47 [facility] Immature granulocytes/100 WB C Auto (Bld)Ordered By: Saqib Juárez on 02-03-2024 Immature granulocytes/100 WBC (Bld) 0.400 % 0.0-0.9 [facility] Comment on above: IG% - Immature Granu locytes (promyelocytes, myelocytes and metamyelocytes) > 1% indicates that a LEFT SHIFT is Present. Laboratory - Chemistry and C hemistry - challengeOrdered By: Saqib Juárez on 02-03-2024 Albumin/Globulin [Mass ratio] 1.1 {ratio} 0.9-2.4 [facility] ALP [Catalytic activity/Vol] 67 U/L 45-117 [facility] ALT [Catalytic activity/Vol] 26 U/L 13-56 [facility] Cholesterol in HDL [Mass/Vol] 60 mg/dL >40 [facility] Comment on above: The drugs N-Acetylcy steine and Metamizole may falsely depress this assay. Reference Range HDL <40 mg/dL Low HDL Cholesterol HDL >or= 60 mg/dL High HDL Cholesterol Cholesterol in LDL [Mass/Vol] 86 mg/dL 0-130 [facility] CO2 [Moles/Vol] 26.0 mmol/L 21.0-32.0 [facility] Globulin (S) [Mass/Vol] 3.4 g/dL 2.2-4.2 [facility] Urea nitrogen/Creatinine [Mass ratio] 22.7 mg/mg 10-20 [facility] Laboratory - Hematology and Cell countsOrdered By: Saqib Juárez on 02-03-2024 MCH (RBC) [Entitic mass] 30.5 pg 27.0-32.0 [facility] MCHC (RBC) [Mass/Vol] 32.9 g/dL 32-36 [facility] Nucleated RBC/100 WBC (Bld) [Ratio] 0 % 0-5 [facility] Platelet mean volume (Bld) [Entitic vol] 8.8 fL 6.2-12.0 [facility] Platelets (Bld) [#/Vol] 292 10*3/uL 150-450 [facility] No Panel InformationOrdered By: Saqib Juárez on 02-03-2024 Estimated GFR (MDRD) Amer 90 mL/min >60 [facility] Comment on above: GFR Calc Estimated GFR (MDRD) Non-Af Amer 74 mL/min >60 [facility] Comment on above: Non- GFR Calc Vitamin D 25-Hydroxy 33.6 ng/mL [facility] Comment on above: Vitamin D 25(OH) Sta tus Range Deficiency <20 ng/mL (50nmol/L) Insufficiency 20 - 30 ng/mL (50 - 75 nmol/L) Sufficiency 30 - 100 ng/mL (75 - 250 nmol/L) Toxicity >100 ng/mL (>250 nmol/L) VLDL Cholesterol 30 mg/dL 5-40 [facility] RBC Auto (Bld) [#/Vol]Ordere d By: Saqib Juárez on 02-03-2024 RBC (Bld) [#/Vol] 4.07 10*6/uL 4.2-5.[address] [facility] Serum or plasma calcium loretta urement (mass/volume)Ordered By: Saqib Juárez on 02-03-2024 Calcium [Mass/Vol] 9.2 mg/dL 8.5-10.[address] [facility] Serum or plasma creatinine m easurement (mass/volume)Ordered By: Saqib Juárez on 02-03-2024 Creatinine [Mass/Vol] 0.79 mg/dL 0.55-1.02 [facility] Comment on above: The validity of the calculated GFR & GFRAA in patients over 70 years has not been determined. Clinical correlation is essential. Serum or plasma thyroid stim ulating hormone (TSH) measurement (units/volume)Ordered By: Saqib Juárez on 02-03-2024 TSH Qn 1.86 uIU/mL 0.358-3.74 [facility] Serum or plasma urea nitroge n measurement (mass/volume)Ordered By: Saqib Juárez on 02-03-2024 Urea nitrogen [Mass/Vol] 18 mg/dL 7-18 [facility] Thin prep Papanicolaou smear with manual screeningOrdered By: Saqib Juárez on 02-03-2024 Thin prep Papanicolaou smear with manual screening 3.7 g/dL 3.2-5.0 [facility] Thin prep Papanicolaou smear with manual screening 18 U/L 15-37 [facility] Thin prep Papanicolaou smear with manual screening 9 5-15 [facility] Whole blood hemoglobin A1c/t otal hemoglobin ratio (mass fraction)Ordered By: Saqib Juárez on 02-03-2024 HbA1c (Bld) [Mass fraction] 6.6 % 3.8-5.6 [facility] Comment on above: Normal < 5.7 % Predi abetic 5.7 - 6.4 % Diabetic >or= 6.5 % Please note range changes. Absolute lymphocyte countOrd ered By: Rose Díaz on 01-31-2024 Lymphocytes Auto (Unsp spec) [#/Vol] 1.29 10*3/uL 0.83-4.51 [facility] Automated lymphocyte count a s percentage of total leukocytesOrdered By: Rose Díaz on 01-31-2024 Lymphocytes/100 WBC Auto (Unsp spec) 19.3 % 19-41 [facility] Basophil percentageOrdered B y: Rose Díaz on 01-31-2024 Basophils/100 WBC (Bld) 0.6 % 0-1 [facility] Chloride [Moles/Vol] 100 mmol/L 98-107 [facility] Eosinophils/100 WBC (Bld) 4.2 % 0-5 [facility] Glucose [Mass/Vol] 123 mg/dL 74-[address] [facility] Comment on above: Fasting Glucose resu lt from 100 to 125 mg/dL suggests IMPAIRED HOMEOSTASIS per A.D.A. criteria. Hemoglobin (Bld) [Mass/Vol] 11.9 g/dL 12.0-15.0 [facility] Monocytes/100 WBC (Bld) 12.0 % 0-10 [facility] Neutrophils (Bld) [#/Vol] 4.2 10*3/uL 2.0-7.7 [facility] Neutrophils/100 WBC (Bld) 63.3 % 47-70 [facility] Potassium [Moles/Vol] 3.7 mmol/L 3.5-5.1 [facility] Sodium [Moles/Vol] 134 mmol/L 136-[address] [facility] WBC (Bld) [#/Vol] 6.7 10*3/uL 4.4-11.[address] [facility] Determination of erythrocyte mean corpuscular volume (MCV)Ordered By: Rose Díaz on 01-31-2024 MCV (RBC) [Entitic vol] 92.5 fL 81-99 [facility] Erythrocyte distribution wid th ratioOrdered By: Rose Díaz on 01-31-2024 Erythrocyte distribution width (RBC) [Ratio] 13.1 % 11.6-14.6 [facility] Erythrocyte distribution wid th standard deviationOrdered By: Rose Díaz on 01-31-2024 Erythrocyte distribution width (RBC) [Entitic vol] 44.0 fL 35.1-43.9 [facility] Hematocrit Auto (Bld) [Volum e fraction]Ordered By: Rose Díaz on 01-31-2024 Hematocrit (Bld) [Volume fraction] 35.9 % 37-47 [facility] Immature granulocytes/100 WB C Auto (Bld)Ordered By: Rose Díaz on 01-31-2024 Immature granulocytes/100 WBC (Bld) 0.600 % 0.0-0.9 [facility] Comment on above: IG% - Immature Granu locytes (promyelocytes, myelocytes and metamyelocytes) > 1% indicates that a LEFT SHIFT is Present. Laboratory - Chemistry and C hemistry - challengeOrdered By: Rose Díaz on 01-31-2024 CO2 [Moles/Vol] 29.0 mmol/L 21.0-32.0 [facility] Urea nitrogen/Creatinine [Mass ratio] 24.7 mg/mg 10-20 [facility] Laboratory - Hematology and Cell countsOrdered By: Rose Díaz on 01-31-2024 MCH (RBC) [Entitic mass] 30.7 pg 27.0-32.0 [facility] MCHC (RBC) [Mass/Vol] 33.1 g/dL 32-36 [facility] Nucleated RBC/100 WBC (Bld) [Ratio] 0 % 0-5 [facility] Platelet mean volume (Bld) [Entitic vol] 9.2 fL 6.2-12.0 [facility] Platelets (Bld) [#/Vol] 301 10*3/uL 150-450 [facility] No Panel InformationOrdered By: Rose Díaz on 01-31-2024 Estimated GFR (MDRD) Amer 113 mL/min >60 [facility] Comment on above: GFR Calc Estimated GFR (MDRD) Non-Af Amer 94 mL/min >60 [facility] Comment on above: Non- GFR Calc RBC Auto (Bld) [#/Vol]Ordere d By: Rose Díaz on 01-31-2024 RBC (Bld) [#/Vol] 3.88 10*6/uL 4.2-5.[address] [facility] Serum or plasma calcium loretta urement (mass/volume)Ordered By: Rose Díaz on 01-31-2024 Calcium [Mass/Vol] 9.8 mg/dL 8.5-10.[address] [facility] Serum or plasma creatinine m easurement (mass/volume)Ordered By: Rose Díaz on 01-31-2024 Creatinine [Mass/Vol] 0.65 mg/dL 0.55-1.02 [facility] Comment on above: The validity of the calculated GFR & GFRAA in patients over 70 years has not been determined. Clinical correlation is essential. Serum or plasma thyroid stim ulating hormone (TSH) measurement (units/volume)Ordered By: Rose Díaz on 01-31-2024 TSH Qn 1.48 uIU/mL 0.358-3.74 [facility] Serum or plasma urea nitroge n measurement (mass/volume)Ordered By: Rose Díaz on 01-31-2024 Urea nitrogen [Mass/Vol] 16 mg/dL 7-18 [facility] Thin prep Papanicolaou smear with manual screeningOrdered By: Rose Díaz on 01-31-2024 Thin prep Papanicolaou smear with manual screening 5 5-15 [facility] Basophil percentageon 2021 Bilirubin [Mass/Vol] 0.40 mg/dL 0.20-1.00 [facility] Work Phone: Comment on above: For patients on eltr ombopag therapy, use of Dimension [place] TBIL is not recommended. Cholesterol [Mass/Vol] 171 mg/dL <200 [facility] Work Phone: Comment on above: <200 mg/dL Desirable 200-240 mg/dL Borderline >240 mg/dL High Risk Protein [Mass/Vol] 7.2 g/dL 6.4-8.[address] [facility] Work Phone: [phone] Triglyceride [Mass/Vol] 141 mg/dL <199 [facility] Work Phone: [phone] Comment on above: The drugs N-Acetylcy steine and Metamizole may falsely depress this assay.Serum Triglycerides Reference Interval Normal <150 mg/dL Borderline high 150 - 199 mg/dL High 200 - 499 mg/dL Very High > or = 500 mg/dL Direct bilirubinon Bilirubin.direct [Mass/Vol] 0.13 mg/dL 0.00-0.30 [facility] Work Phone: Laboratory - Chemistry and C hemistry - challengeon 03-19-2022 ALP [Catalytic activity/Vol] 62 U/L 45-117 [facility] Work Phone: ALT [Catalytic activity/Vol] 28 U/L 13-56 [facility] Work Phone: [phone] Globulin (S) [Mass/Vol] 3.4 g/dL 2.2-4.2 [facility] Work Phone: Serum or plasma albumin loretta urement (mass/volume)on 03-19-2022 Albumin [Mass/Vol] 3.8 g/dL 3.2-5.[address] [facility] Work Phone: Serum or plasma cholesterol in HDL measurement (mass/volume)on 03-19-2022 Cholesterol in HDL [Mass/Vol] 67 mg/dL >40 [facility] Work Phone: Comment on above: The drugs N-Acetylcy steine and Metamizole may falsely depress this assay. Reference Range HDL <40 mg/dL Low HDL Cholesterol HDL >or= 60 mg/dL High HDL Cholesterol Serum or plasma cholesterol in VLDL measurement (mass/volume)on 03-19-2022 Cholesterol in VLDL [Mass/Vol] 28 mg/dL 5-40 [facility] Work Phone: [phone] Serum or plasma low density lipoprotein (LDL) cholesterol measurement (mass/volume)on 03-19-2022 Cholesterol in LDL [Mass/Vol] 76 mg/dL 0-130 [facility] Work Phone: Thin prep Papanicolaou smear with manual screeningon 03-19-2022 Thin prep Papanicolaou smear with manual screening 18 U/L 15-37 [facility] Work Phone: Basophil percentageon 2021 Bilirubin [Mass/Vol] 0.30 mg/dL 0.20-1.00 [facility] Work Phone: Comment on above: For patients on eltr ombopag therapy, use of Dimension [place] TBIL is not recommended. Chloride [Moles/Vol] 101 mmol/L 98-107 [facility] Work Phone: [phone] Glucose [Mass/Vol] 129 mg/dL 74-[address] [facility] Work Phone: [phone] Comment on above: Fasting Glucose resu lt greater than or equal to 126 mg/dL suggests DIABETES MELLITUS per A.D.A. criteria. Potassium [Moles/Vol] 3.7 mmol/L 3.5-5.1 [facility] Work Phone: [phone] Protein [Mass/Vol] 6.8 g/dL 6.4-8.[address] [facility] Work Phone: [phone] Sodium [Moles/Vol] 136 mmol/L 136-[address] [facility] Work Phone: [phone] WBC (Bld) [#/Vol] 7.8 10*3/uL 4.4-11.[address] [facility] Work Phone: [phone] Blood erythrocytes count (nu mber/volume)on 03-03-2022 RBC (Bld) [#/Vol] 3.99 10*6/uL 4.2-5.[address] [facility] Work Phone: [phone] Blood hemoglobin measurement (mass/volume)on 03-03-2022 Hemoglobin (Bld) [Mass/Vol] 12.4 g/dL 12.0-15.0 [facility] Work Phone: [phone] Blood platelet mean volumeon 03-03-2022 Platelet mean volume (Bld) [Entitic vol] 8.9 fL 6.2-12.0 [facility] Work Phone: [phone] Determination of erythrocyte mean corpuscular volume (MCV)on 03-03-2022 MCV (RBC) [Entitic vol] 94.7 fL 81-99 [facility] Work Phone: [phone] Hematocrit Auto (Bld) [Volum e fraction]on 03-03-2022 Hematocrit (Bld) [Volume fraction] 37.8 % 37-47 [facility] Work Phone: Laboratory - Chemistry and C hemistry - challengeon 03-03-2022 ALP [Catalytic activity/Vol] 50 U/L 45-117 [facility] Work Phone: [phone] ALT [Catalytic activity/Vol] 29 U/L 13-56 [facility] Work Phone: [phone] CO2 [Moles/Vol] 28.0 mmol/L 21.0-32.0 [facility] Work Phone: [phone] Globulin (S) [Mass/Vol] 3.3 g/dL 2.2-4.2 [facility] Work Phone: [phone] Urea nitrogen/Creatinine [Mass ratio] 24.3 mg/mg 10-20 [facility] Work Phone: [phone] Laboratory - Hematology and Cell countson 03-03-2022 Erythrocyte distribution width (RBC) [Entitic vol] 43.3 fL 35.1-43.9 [facility] Work Phone: [phone] Erythrocyte distribution width (RBC) [Ratio] 12.4 % 11.6-14.6 [facility] Work Phone: [phone] MCH (RBC) [Entitic mass] 31.1 pg 27.0-32.0 [facility] Work Phone: [phone] MCHC Auto (RBC) [Mass/Vol]on 03-03-2022 MCHC (RBC) [Mass/Vol] 32.8 g/dL 32-36 [facility] Work Phone: [phone] Panel Informationon 03-03 Estimated Creatinine Clearance Calc 38.35 ml/min [facility] Work Phone: Estimated GFR (MDRD) Amer 104 mL/min >60 [facility] Work Phone: [phone] Comment on above: GFR Calc Estimated GFR (MDRD) Non-Af Amer 86 mL/min >60 [facility] Work Phone: Comment on above: Non- GFR Calc Platelets bldon 03-03-2022 Platelets (Bld) [#/Vol] 282 10*3/uL 150-450 [facility] Work Phone: Serum or plasma albumin loretta urement (mass/volume)on 03-03-2022 Albumin [Mass/Vol] 3.5 g/dL 3.2-5.[address] [facility] Work Phone: [phone] Serum or plasma albumin/glob ulin mass ratioon 03-03-2022 Albumin/Globulin [Mass ratio] 1.1 {ratio} 0.9-2.4 [facility] Work Phone: [phone] Serum or plasma calcium loretta urement (mass/volume)on 03-03-2022 Calcium [Mass/Vol] 9.0 mg/dL 8.5-10.[address] [facility] Work Phone: Serum or plasma creatinine m easurement (mass/volume)on 03-03-2022 Creatinine [Mass/Vol] 0.70 mg/dL 0.55-1.02 [facility] Work Phone: Comment on above: The validity of the calculated GFR & GFRAA in patients over 70 years has not been determined. Clinical correlation is essential. Serum or plasma urea nitroge n measurement (mass/volume)on 03-03-2022 Urea nitrogen [Mass/Vol] 17 mg/dL 7-18 [facility] Work Phone: Thin prep Papanicolaou smear with manual screeningon 03-03-2022 Thin prep Papanicolaou smear with manual screening 18 U/L 15-37 [facility] Work Phone: [phone] Thin prep Papanicolaou smear with manual screening 7 5-15 [facility] Work Phone: [phone] Absolute lymphocyte counton 02-22-2022 Lymphocytes Auto (Unsp spec) [#/Vol] 1.39 10*3/uL 0.83-4.51 [facility] Work Phone: Basophil percentageon 2021 Basophils/100 WBC (Bld) 0.4 % 0-1 [facility] Work Phone: Chloride [Moles/Vol] 98 mmol/L 98-107 [facility] Work Phone: Eosinophils/100 WBC (Bld) 2.3 % 0-5 [facility] Work Phone: Glucose [Mass/Vol] 112 mg/dL 74-[address] [facility] Work Phone: Comment on above: Fasting Glucose resu lt from 100 to 125 mg/dL suggests IMPAIRED HOMEOSTASIS per A.D.A. criteria. Neutrophils (Bld) [#/Vol] 4.8 10*3/uL 2.0-7.7 [facility] Work Phone: Neutrophils/100 WBC (Bld) 67.4 % 47-70 [facility] Work Phone: Potassium [Moles/Vol] 3.6 mmol/L 3.5-5.1 [facility] Work Phone: Sodium [Moles/Vol] 135 mmol/L 136-[address] [facility] Work Phone: WBC (Bld) [#/Vol] 7.1 10*3/uL 4.4-11.[address] [facility] Work Phone: Blood erythrocytes count (nu mber/volume)on 02-22-2022 RBC (Bld) [#/Vol] 4.19 10*6/uL 4.2-5.[address] [facility] Work Phone: Blood hemoglobin measurement (mass/volume)on 02-22-2022 Hemoglobin (Bld) [Mass/Vol] 13.2 g/dL 12.0-15.0 [facility] Work Phone: Blood lymphocytes/100 leukoc yteson 02-22-2022 Lymphocytes/100 WBC (Bld) 19.7 % 19-41 [facility] Work Phone: Blood monocytes/100 leukocyt eson 02-22-2022 Monocytes/100 WBC (Bld) 9.6 % 0-10 [facility] Work Phone: Blood platelet mean volumeon 02-22-2022 Platelet mean volume (Bld) [Entitic vol] 9.0 fL 6.2-12.0 [facility] Work Phone: [phone] Determination of erythrocyte mean corpuscular volume (MCV)on 02-22-2022 MCV (RBC) [Entitic vol] 93.8 fL 81-99 [facility] Work Phone: [phone] Hematocrit Auto (Bld) [Volum e fraction]on 02-22-2022 Hematocrit (Bld) [Volume fraction] 39.3 % 37-47 [facility] Work Phone: [phone] Laboratory - Chemistry and C hemistry - challengeon 02-22-2022 CO2 [Moles/Vol] 30.0 mmol/L 21.0-32.0 [facility] Work Phone: [phone] Urea nitrogen/Creatinine [Mass ratio] 29.6 mg/mg 10-20 [facility] Work Phone: [phone] Laboratory - Hematology and Cell countson 02-22-2022 Erythrocyte distribution width (RBC) [Entitic vol] 44.0 fL 35.1-43.9 [facility] Work Phone: [phone] Erythrocyte distribution width (RBC) [Ratio] 12.7 % 11.6-14.6 [facility] Work Phone: [phone] Immature granulocytes/100 WBC (Bld) 0.600 % 0.0-0.9 [facility] Work Phone: [phone] Comment on above: IG% - Immature Granu locytes (promyelocytes, myelocytes and metamyelocytes) > 1% indicates that a LEFT SHIFT is Present. MCH (RBC) [Entitic mass] 31.5 pg 27.0-32.0 [facility] Work Phone: [phone] Nucleated RBC/100 WBC (Bld) [Ratio] 0 % 0-5 [facility] Work Phone: [phone] MCHC Auto (RBC) [Mass/Vol]on 02-22-2022 MCHC (RBC) [Mass/Vol] 33.6 g/dL 32-36 [facility]: [phone] No Panel Informationon 02-22 Estimated GFR (MDRD) Amer 92 mL/min >60 [facility] Work Phone: Comment on above: GFR Calc Estimated GFR (MDRD) Non-Af Amer 76 mL/min >60 [facility] Work Phone: Comment on above: Non- GFR Calc Platelets bldon 02-22-2022 Platelets (Bld) [#/Vol] 318 10*3/uL 150-450 [facility] Work Phone: Serum or plasma calcium loretta urement (mass/volume)on 02-22-2022 Calcium [Mass/Vol] 10.0 mg/dL 8.5-10.[address] [facility] Work Phone: Serum or plasma creatinine m easurement (mass/volume)on 02-22-2022 Creatinine [Mass/Vol] 0.78 mg/dL 0.55-1.02 [facility] Work Phone: Comment on above: The validity of the calculated GFR & GFRAA in patients over 70 years has not been determined. Clinical correlation is essential. Serum or plasma urea nitroge n measurement (mass/volume)on 02-22-2022 Urea nitrogen [Mass/Vol] 23 mg/dL 7-18 [facility] Work Phone: Thin prep Papanicolaou smear with manual screeningon 02-22-2022 Thin prep Papanicolaou smear with manual screening 7 5-15 [facility] Work Phone: OBSOLETEon 04-04-2021 OBSOLETE Refill (CHARITY) KARYN MULLER ([id number]) 1945 F Date Time Provider Department 04/04/21 [...] valve replacement (more content not included)... Normal [facility] OBSOLETEon 01-10-2021 OBSOLETE Refill (FAMPWS) KARYN MULLER ([id number]) 1945 F Date Time Provider Department 01/10/21 [...] 10/07/2020 Future Appointment: None Patient down in [place] and requesting refills to be sent to [facility]. Last 2 Encounter Wt Readings: Date: Wt: [...] Please advise. Thank you. DOMINIC Hernandez DNP.ANGELICA, INFORMATION SECURITY CONSULTANT.OCCUPATIONAL THERAPY TECHNICIAN 01/10/2021 4:35 PM Signed The [...] Prescriptions orde (more content not included)... 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 Left ventricular Ejection fraction 60-65 Invalid Interpretation Code [facility] Work Phone: [phone] Lab Report: Lipid Profileon 06-24-2017 Cholesterol 183 mg/dL Invalid Interpretation Code 200 [facility] Work Phone: [phone] HDL Cholesterol 50 mg/dL Invalid Interpretation Code [facility] Work Phone: [phone] LDL Cholesterol 102 mg/dL Invalid Interpretation Code 0-130 [facility] Work Phone: [phone] Triglyceride 153 mg/dL Invalid Interpretation Code [facility] Work Phone: [phone] very low density lipoproteins 31 mg/dL Invalid Interpretation Code 5-40 [facility] Work Phone: [phone] Lab Report: Vitamin D,25 Hyd roxyon 06-24-2017 Vitamin D 25-OH 26.8 ng/mL Invalid Interpretation Code [facility] Phone: [phone] Replaced Document: Liver Pro fileon 06-24-2017 Alanine aminotransferase (ALT) 18 U/L Invalid Interpretation Code 12-78 [facility] Work Phone: [phone] Albumin 3.4 g/dL Invalid Interpretation Code 3.4-5.0 [facility] Work Phone: [phone] Alkaline phosphatase (ALP) 75 U/L Invalid Interpretation Code 45-117 [facility] Phone: [phone] Aspartate aminotransferase (AST) 14 U/L Low 15-37 [facility] Work Phone: [phone] Bilirubin (direct) 0.07 mg/dL Invalid Interpretation Code 0.00-0.30 [facility] Work Phone: [phone] Bilirubin (total) 0.20 mg/dL Invalid Interpretation Code 0.20-1.00 [facility] Work Phone: [phone] Globulin 3.5 g/dL Invalid Interpretation Code 2.3-3.5 [facility] Phone: [phone] Protein 6.9 g/dL Invalid Interpretation Code 6.4-8.2 [facility] Phone: [phone] Office Visiton 05-21-2017 Documentation of current medications (procedure) Done Invalid Interpretation Code [facility] Work Phone: [phone] Fall risk assessment No Invalid Interpretation Code [facility] Work Phone: [phone] 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 Saqib Juárez MD Work Phone: [facility] 06-16-2025 08:47-0400 Body temperature 97.5 [degF] Dr. Saqib Juárez MD Work Phone: [facility] 06-16-2025 08:47-0400 Body weight 77.[address] Saqib Juárez MD Work Phone: [facility] 06-16-2025 08:47-0400 Diastolic blood pressure 70 mm[Hg] Dr. Saqib Juárez MD Work Phone: [facility] 06-16-2025 08:47-0400 Heart rate 70 /min Dr. Saqib Juárez MD Work Phone: [facility] 06-16-2025 08:47-0400 Respiratory rate 18 /min Dr. Saqib Juárez MD Work Phone: [facility] 06-16-2025 08:47-0400 SaO2% (BldA) [Mass fraction] 93 % Dr. Saqib Juárez MD Work Phone: [facility] 06-16-2025 08:47-0400 Systolic blood pressure 120 mm[Hg] Dr. Saqib Juárez MD Work Phone: [facility] 04-29-2025 11:43-0400 Body height 160.[address] Saqib Juárez MD Work Phone: [facility] 04-29-2025 11:43-0400 Body mass index (BMI) [Ratio] 29.7 kg/m2 Dr. Saqib Juárez MD Work Phone: [facility] 04-29-2025 11:43-0400 Body temperature 99.3 [degF] Dr. Saqib Juárez MD Work Phone: [facility] 04-29-2025 11:43-0400 Body weight 76.[address] Saqib Juárez MD Work Phone: [facility] 04-29-2025 11:43-0400 Diastolic blood pressure 63 mm[Hg] Dr. Saqib Juárez MD Work Phone: [facility] 04-29-2025 11:43-0400 Heart rate 77 /min Dr. Saqib Juárez MD Work Phone: [facility] 04-29-2025 11:43-0400 Respiratory rate 16 /min Dr. Saqib Juárez MD Work Phone: [facility] 04-29-2025 11:43-0400 SaO2% (BldA) [Mass fraction] 94 % Dr. Saqib Juárez MD Work Phone: [facility] 04-29-2025 11:43-0400 Systolic blood pressure 147 mm[Hg] Dr. Saqib Juárez MD Work Phone: [facility] 03-23-2025 14:28-0400 Body height 160.[address] Saqib Juáerz MD Work Phone: [facility] 03-23-2025 14:28-0400 Body mass index (BMI) [Ratio] 29.7 kg/m2 Dr. Saqib Juárez MD Work Phone: [facility] 03-23-2025 14:28-0400 Body weight 76.[address] Saqib Juárez MD Work Phone: [facility] 03-23-2025 14:28-0400 Diastolic blood pressure 78 mm[Hg] Dr. Saqib Juárez MD Work Phone: [facility] 03-23-2025 14:28-0400 Heart rate 58 /min Dr. Saqib Juárez MD Work Phone: [facility] 03-23-2025 14:28-0400 Respiratory rate 18 /min Dr. Saqib Juárez MD Work Phone: [facility] 03-23-2025 14:28-0400 Systolic blood pressure 147 mm[Hg] Dr. Saqib Juárez MD Work Phone: [facility] 03-16-2025 08:31-0400 Body mass index (BMI) [Ratio] 29.9 kg/m2 Dr. Saqib Juárez MD Work Phone: [facility] 03-16-2025 08:31-0400 Body temperature 97.1 [degF] Dr. Saqib Juárez MD Work Phone: [facility] 03-16-2025 08:31-0400 Body weight 76.[address] Saqib Juárez MD Work Phone: [facility] 03-16-2025 08:31-0400 Diastolic blood pressure 52 mm[Hg] Dr. Saqib Juárez MD Work Phone: [facility] 03-16-2025 08:31-0400 Heart rate 65 /min Dr. Saqib Juárez MD Work Phone: [facility] 03-16-2025 08:31-0400 Respiratory rate 18 /min Dr. Saqib Juárez MD Work Phone: [facility] 03-16-2025 08:31-0400 SaO2% (BldA) [Mass fraction] 95 % Dr. Saqib Juárez MD Work Phone: [facility] 03-16-2025 08:31-0400 Systolic blood pressure 135 mm[Hg] Dr. aSqib Juárez MD Work Phone: [facility] 12-30-2024 09:42-0400 Body height 160.[address] Saqib Juárez MD Work Phone: [facility] 12-30-2024 09:42-0400 Body mass index (BMI) [Ratio] 29.7 kg/m2 Dr. Saqib Juárez MD Work Phone: [facility] 12-30-2024 09:42-0400 Body temperature 97.8 [degF] Dr. Saqib Juárez MD Work Phone: [facility] 12-30-2024 09:42-0400 Body weight 76.[address] Saqib Juárez MD Work Phone: [facility] 12-30-2024 09:42-0400 Diastolic blood pressure 75 mm[Hg] Dr. Saqib Juárez MD Work Phone: [facility] 12-30-2024 09:42-0400 Heart rate 59 /min Dr. Saqib Juárez MD Work Phone: [facility] 12-30-2024 09:42-0400 Respiratory rate 16 /min Dr. Saqib Juárez MD Work Phone: [facility] 12-30-2024 09:42-0400 SaO2% (BldA) [Mass fraction] 95 % Dr. Saqib Juárez MD Work Phone: [facility] 12-30-2024 09:42-0400 Systolic blood pressure 127 mm[Hg] Dr. Saqib Juárez MD Work Phone: [facility] 12-01-2024 14:34-0500 Body height 160.[address] Saqib Juárez MD Work Phone: [facility] 12-01-2024 14:34-0500 Body mass index (BMI) [Ratio] 29.8 kg/m2 Dr. Saqib Juárez MD Work Phone: [facility] 12-01-2024 14:34-0500 Body temperature 98.1 [degF] Dr. Saqib Juárez MD Work Phone: [facility] 12-01-2024 14:34-0500 Body weight 76.[address] Saqib Juárez MD Work Phone: [facility] 12-01-2024 14:34-0500 Diastolic blood pressure 66 mm[Hg] Dr. Saqib Juárez MD Work Phone: [facility] 12-01-2024 14:34-0500 Heart rate 69 /min Dr. Saqib Juárez MD Work Phone: [facility] 12-01-2024 14:34-0500 SaO2% (BldA) [Mass fraction] 98 % Dr. Saqib Juárez MD Work Phone: [facility] 12-01-2024 14:34-0500 Systolic blood pressure 120 mm[Hg] Dr. Saqib Juárez MD Work Phone: [facility] 08-31-2024 11:12-0500 Body mass index (BMI) [Ratio] 30.1 kg/m2 Dr. Saqib Juárez MD Work Phone: [facility] 08-31-2024 11:12-0500 Body weight 77.[address] Saqib Juárez MD Work Phone: [facility] 08-31-2024 11:12-0500 Diastolic blood pressure 67 mm[Hg] Dr. Saqib Juárez MD Work Phone: [facility] 08-31-2024 11:12-0500 Heart rate 67 /min Dr. Saqib Juárez MD Work Phone: [facility] 08-31-2024 11:12-0500 Respiratory rate 20 /min Dr. Saqib Juárez MD Work Phone: [facility] 08-31-2024 11:12-0500 SaO2% (BldA) [Mass fraction] 97 % Dr. Saqib Juárez MD Work Phone: [facility] 08-31-2024 11:12-0500 Systolic blood pressure 119 mm[Hg] Dr. Saqib Juárez MD Work Phone: [facility] 08-17-2024 13:58-0500 Body mass index (BMI) [Ratio] 30.1 kg/m2 Dr. Saqib Juárez MD Work Phone: [facility] 08-17-2024 13:58-0500 Body temperature 97.8 [degF] Dr. Saqib Juárez MD Work Phone: [facility] 08-17-2024 13:58-0500 Body weight 77.[address] Saqib Juárez MD Work Phone: [facility] 08-17-2024 13:58-0500 Diastolic blood pressure 72 mm[Hg] Dr. Saqib Juárez MD Work Phone: [facility] 08-17-2024 13:58-0500 Heart rate 65 /min Dr. Saqib Juárez MD Work Phone: [facility] 08-17-2024 13:58-0500 Respiratory rate 16 /min Dr. Saqib Juárez MD Work Phone: [facility] 08-17-2024 13:58-0500 SaO2% (BldA) [Mass fraction] 92 % Dr. Saqib Juárez MD Work Phone: [facility] 08-17-2024 13:58-0500 Systolic blood pressure 141 mm[Hg] Dr. Saqib Juárez MD Work Phone: [facility] 02-06-2024 10:01-0400 Body height 160.[address] Saqib Juárez Work Phone: [facility] 02-06-2024 10:01-0400 Body mass index (BMI) [Ratio] 29.7 kg/m2 Dr. Saqib Juárez Work Phone: [facility] 02-06-2024 10:01-0400 Body temperature 98.2 [degF] Dr. Saqib Juárez Work Phone: [facility] 02-06-2024 10:01-0400 Body weight 76.[address] Saqib Juárez Work Phone: [facility] 02-06-2024 10:01-0400 Diastolic blood pressure 77 mm[Hg] Dr. Saqib Juárez Work Phone: [facility] 02-06-2024 10:01-0400 Heart rate 59 /min Dr. Saqib Juárez Work Phone: [facility] 02-06-2024 10:01-0400 Respiratory rate 18 /min Dr. Saqib Juárez Work Phone: [facility] 02-06-2024 10:01-0400 SaO2% (BldA) [Mass fraction] 95 % Dr. Saqib Juárez Work Phone: [facility] 02-06-2024 10:01-0400 Systolic blood pressure 143 mm[Hg] Dr. Saqib Juárez Work Phone: [facility] 05-07-2023 09:35-0400 Body temperature 97.4 [degF] Dr. Saqib Juárez Work Phone: [facility] 05-07-2023 09:35-0400 Diastolic blood pressure 54 mm[Hg] Dr. Saqib Juárez Work Phone: [facility] 05-07-2023 09:35-0400 Heart rate 69 /min Dr. Saqib Juárez Work Phone: [facility] 05-07-2023 09:35-0400 Respiratory rate 16 /min Dr. Saqib Juárez Work Phone: [facility] 05-07-2023 09:35-0400 SaO2% (BldA) [Mass fraction] 92 % Dr. Saqib Juárez Work Phone: [facility] 05-07-2023 09:35-0400 Systolic blood pressure 107 mm[Hg] Dr. Saqib Juárez Work Phone: [facility] 05-07-2023 07:56-0400 Body height 160.[address] Saqib Juárez Work Phone: [facility] 05-07-2023 07:56-0400 Body mass index (BMI) [Ratio] 28.3 kg/m2 Dr. Saqib Juárez Work Phone: [facility] 05-07-2023 07:56-0400 Body weight 72.[address] Saqib Juárez Work Phone: [facility] 04-04-2023 09:47-0400 Body mass index (BMI) [Ratio] 29.7 kg/m2 Dr. Saqib Juárez Work Phone: [facility] 04-04-2023 09:47-0400 Body temperature 97 [degF] Dr. Saqib Juárez Work Phone: [facility] 04-04-2023 09:47-0400 Body weight 76.[address] Saqib Juárez Work Phone: [facility] 04-04-2023 09:47-0400 Diastolic blood pressure 70 mm[Hg] Dr. Saqib Juárez Work Phone: [facility] 04-04-2023 09:47-0400 Heart rate 64 /min Dr. Saqib Juárez Work Phone: [facility] 04-04-2023 09:47-0400 Respiratory rate 17 /min Dr. Saqib Juárez Work Phone: [facility] 04-04-2023 09:47-0400 SaO2% (BldA) [Mass fraction] 93 % Dr. Saqib Juárez Work Phone: [facility] 04-04-2023 09:47-0400 Systolic blood pressure 134 mm[Hg] Dr. Saqib Juárez Work Phone: [facility] 03-14-2023 09:33-0400 Body mass index (BMI) [Ratio] 29.7 kg/m2 Dr. Saqib Juárez Work Phone: [facility] 03-14-2023 09:33-0400 Body temperature 95.3 [degF] Dr. Saqib Juárez Work Phone: [facility] 03-14-2023 09:33-0400 Body weight 76.[address] Saqib Juárez Work Phone: [facility] 03-14-2023 09:33-0400 Diastolic blood pressure 72 mm[Hg] Dr. Saqib Juárez Work Phone: [facility] 03-14-2023 09:33-0400 Heart rate 85 /min Dr. Saqib Juárez Work Phone: [facility] 03-14-2023 09:33-0400 Respiratory rate 20 /min Dr. Saqib Juárez Work Phone: [facility] 03-14-2023 09:33-0400 SaO2% (BldA) [Mass fraction] 96 % Dr. Saqib Juárez Work Phone: [facility] 03-14-2023 09:33-0400 Systolic blood pressure 158 mm[Hg] Dr. Saqib Juárez Work Phone: [facility] 03-12-2023 10:43-0400 Body mass index (BMI) [Ratio] 29.4 kg/m2 Dr. Saqib Juárez Work Phone: [facility] 03-12-2023 10:43-0400 Body weight 75.[address] Saqib Juárez Work Phone: [facility] 03-12-2023 10:43-0400 Diastolic blood pressure 74 mm[Hg] Dr. Saqib Juárez Work Phone: [facility] 03-12-2023 10:43-0400 Heart rate 61 /min Dr. Saqib Juárez Work Phone: [facility] 03-12-2023 10:43-0400 Respiratory rate 18 /min Dr. Saqib Juárez Work Phone: [facility] 03-12-2023 10:43-0400 Systolic blood pressure 150 mm[Hg] Dr. Saqib Juárez Work Phone: [facility] 09-10-2022 14:01-0500 Heart rate 62 /min Dr. Saqib Juárez Work Phone: [facility] Work Phone: 09-10-2022 14:01-0500 Respiratory rate 16 /min Dr. Saqib Juárez Work Phone: [facility] Work Phone: 09-10-2022 14:01-0500 SaO2% (BldA) [Mass fraction] 96 % Dr. Saqib Juárez Work Phone: [facility] Work Phone: 09-10-2022 11:49-0500 Body height 160.[address] Saqib Juárez Work Phone: [facility] Work Phone: 09-10-2022 11:49-0500 Body mass index (BMI) [Ratio] 27.6 kg/m2 Dr. Saqib Juárez Work Phone: [facility] Work Phone: 09-10-2022 11:49-0500 Body temperature 96.6 [degF] Dr. Saqib Juárez Work Phone: [facility] Work Phone: 09-10-2022 11:49-0500 Body weight 70.[address] Saqib Juárez Work Phone: [facility] Work Phone: 09-10-2022 11:49-0500 Diastolic blood pressure 75 mm[Hg] Dr. Saqib Juárez Work Phone: [facility] Work Phone: 09-10-2022 11:49-0500 Systolic blood pressure 103 mm[Hg] Dr. Saqib Juárez Work Phone: [facility] Work Phone: 09-07-2022 13:31-0500 Body mass index (BMI) [Ratio] 29 kg/m2 Dr. Saqib Juárez Work Phone: [facility] Work Phone: 09-07-2022 13:31-0500 Body weight 74.[address] Saqib Juárez Work Phone: [facility] Work Phone: 09-07-2022 13:31-0500 Diastolic blood pressure 80 mm[Hg] Dr. Saqib Juárez Work Phone: [facility] Work Phone: 09-07-2022 13:31-0500 Heart rate 52 /min Dr. Saqib Juárez Work Phone: [facility] Work Phone: 09-07-2022 13:31-0500 Respiratory rate 18 /min Dr. Saqib Juárez Work Phone: [facility] Work Phone: 09-07-2022 13:31-0500 SaO2% (BldA) [Mass fraction] 97 % Dr. Saqib Juárez Work Phone: [facility] Work Phone: 09-07-2022 13:31-0500 Systolic blood pressure 148 mm[Hg] Dr. Saqib Juárez Work Phone: [facility] Work Phone: 09-06-2022 09:27-0500 Body mass index (BMI) [Ratio] 28.8 kg/m2 Dr. Saqib Juárez Work Phone: [facility] Work Phone: 09-06-2022 09:27-0500 Body temperature 96.8 [degF] Dr. Saqib Juárez Work Phone: [facility] Work Phone: 09-06-2022 09:27-0500 Body weight 73.[address] Saqib Juárez Work Phone: [facility] Work Phone: 09-06-2022 09:27-0500 Diastolic blood pressure 54 mm[Hg] Dr. Saqib Juárez Work Phone: [facility] Work Phone: 09-06-2022 09:27-0500 Heart rate 80 /min Dr. Saqib Juárez Work Phone: [facility] Work Phone: 09-06-2022 09:27-0500 Respiratory rate 20 /min Dr. Saqib Juárez Work Phone: [facility] Work Phone: 09-06-2022 09:27-0500 SaO2% (BldA) [Mass fraction] 93 % Dr. Saqib Juárez Work Phone: [facility] Work Phone: 09-06-2022 09:27-0500 Systolic blood pressure 115 mm[Hg] Dr. Saqib Juárez Work Phone: [facility] Work Phone: 07-26-2022 10:52-0400 Body temperature 98.2 [degF] Dr. Saqib Juárez Work Phone: [facility] Work Phone: 07-26-2022 10:52-0400 Body weight 73.[address] Saqib Juárez Work Phone: [facility] Work Phone: 07-26-2022 10:52-0400 Diastolic blood pressure 58 mm[Hg] Dr. Saqib Juárez Work Phone: [facility] Work Phone: 07-26-2022 10:52-0400 Heart rate 72 /min Dr. Saqib Juárez Work Phone: [facility] Work Phone: 07-26-2022 10:52-0400 Respiratory rate 16 /min Dr. Saqib Juárez Work Phone: [facility] Work Phone: 07-26-2022 10:52-0400 SaO2% (BldA) [Mass fraction] 96 % Dr. Saqib Juárez Work Phone: [facility] Work Phone: 07-26-2022 10:52-0400 Systolic blood pressure 118 mm[Hg] Dr. Saqib Juárez Work Phone: [facility] Work Phone: 07-16-2022 08:17-0400 Body weight 73.[address] Saqib Juárez Work Phone: [facility] Work Phone: 06-30-2022 01:31-0400 Body weight 72.[address] Saqib Juárez Work Phone: [facility] Work Phone: 06-28-2022 07:52-0400 Body height 160.[address] Saqib Juárez Work Phone: [facility] Work Phone: 06-28-2022 07:52-0400 Body mass index (BMI) [Ratio] 28.9 kg/m2 Dr. Saqib Juárez Work Phone: [facility] Work Phone: 06-28-2022 07:52-0400 Body temperature 98 [degF] Dr. Saqib Juárez Work Phone: [facility] Work Phone: 06-28-2022 07:52-0400 Body weight 74.[address] Saqib Juárez Work Phone: [facility] Work Phone: 06-28-2022 07:52-0400 Diastolic blood pressure 67 mm[Hg] Dr. Saqib Juárez Work Phone: [facility] Work Phone: 06-28-2022 07:52-0400 Heart rate 61 /min Dr. Saqib Juárez Work Phone: [facility] Work Phone: 06-28-2022 07:52-0400 Respiratory rate 16 /min Dr. Saqib Juárez Work Phone: [facility] Work Phone: 06-28-2022 07:52-0400 SaO2% (BldA) [Mass fraction] 96 % Dr. Saqib Juárez Work Phone: [facility] Work Phone: 06-28-2022 07:52-0400 Systolic blood pressure 146 mm[Hg] Dr. Saqib Juárez Work Phone: [facility] Work Phone: 06-15-2022 07:17-0400 Body weight 72.[address] Saqib Juárez Work Phone: [facility] Work Phone: 05-17-2022 06:13-0400 Body height 160.[address] Saqib Juárez Work Phone: [facility] Work Phone: 05-17-2022 06:13-0400 Body mass index (BMI) [Ratio] 28.5 kg/m2 Dr. Saqib Juárez Work Phone: [facility] Work Phone: 05-17-2022 06:13-0400 Body temperature 98.7 [degF] Dr. Saqib Juárez Work Phone: [facility] Work Phone: 05-17-2022 06:13-0400 Body weight 73.[address] Saqib Juárez Work Phone: [facility] Work Phone: 05-17-2022 06:13-0400 Diastolic blood pressure 70 mm[Hg] Dr. Saqib Juárez Work Phone: [facility] Work Phone: 05-17-2022 06:13-0400 Heart rate 58 /min Dr. Saqib Juárez Work Phone: [facility] Work Phone: 05-17-2022 06:13-0400 Respiratory rate 19 /min Dr. Saqib Juárez Work Phone: [facility] Work Phone: 05-17-2022 06:13-0400 SaO2% (BldA) [Mass fraction] 98 % Dr. Saqib Juárez Work Phone: [facility] Work Phone: 05-17-2022 06:13-0400 Systolic blood pressure 165 mm[Hg] Dr. Saqib Juárez Work Phone: [facility] Work Phone: 04-16-2022 11:32-0400 Body height 160.[address] Saqib Juárez Work Phone: [facility] Work Phone: 04-16-2022 11:32-0400 Body weight 72.[address] Saqib Juárez Work Phone: [facility] Work Phone: 04-16-2022 11:25-0400 Body mass index (BMI) [Ratio] 28.3 kg/m2 Dr. Saqib Juárez Work Phone: [facility] Work Phone: 04-16-2022 11:25-0400 Heart rate 68 /min Dr. Saqib Juárez Work Phone: [facility] Work Phone: 04-16-2022 11:25-0400 SaO2% (BldA) [Mass fraction] 97 % Dr. Saqib Juárez Work Phone: [facility] Work Phone: 03-16-2022 10:04-0400 Body height 160.[address] Saqib Juárez Work Phone: [facility] Work Phone: 03-16-2022 10:04-0400 Body mass index (BMI) [Ratio] 28.3 kg/m2 Dr. Saqib Juárez Work Phone: [facility] Work Phone: 03-16-2022 10:04-0400 Body weight 72.[address] Saqib Juárez Work Phone: [facility] Work Phone: 03-16-2022 10:04-0400 Diastolic blood pressure 64 mm[Hg] Dr. Saqib Juárez Work Phone: [facility] Work Phone: 03-16-2022 10:04-0400 Heart rate 59 /min Dr. Saqib Juárez Work Phone: [facility] Work Phone: 03-16-2022 10:04-0400 Respiratory rate 16 /min Dr. Saqib Juárez Work Phone: [facility] Work Phone: 03-16-2022 10:04-0400 Systolic blood pressure 116 mm[Hg] Dr. Saqib Juárez Work Phone: [facility] Work Phone: 03-08-2022 08:48-0400 Body mass index (BMI) [Ratio] 28.8 kg/m2 Dr. Saqib Juárez Work Phone: [facility] Work Phone: 03-08-2022 08:48-0400 Body temperature 98.1 [degF] Dr. Saqib Juárez Work Phone: [facility] Work Phone: 03-08-2022 08:48-0400 Body weight 73.[address] Saqib Juárez Work Phone: [facility] Work Phone: 03-08-2022 08:48-0400 Diastolic blood pressure 64 mm[Hg] Dr. Saqib Juárez Work Phone: [facility] Work Phone: 03-08-2022 08:48-0400 Heart rate 62 /min Dr. Saqib Juárez Work Phone: [facility] Work Phone: 03-08-2022 08:48-0400 Respiratory rate 20 /min Dr. Saqib Juárez Work Phone: [facility] Work Phone: 03-08-2022 08:48-0400 SaO2% (BldA) [Mass fraction] 94 % Dr. Saqib Juárez Work Phone: [facility] Work Phone: 03-08-2022 08:48-0400 Systolic blood pressure 129 mm[Hg] Dr. Saqib Juárez Work Phone: [facility] Work Phone: 03-03-2022 08:45-0400 Body temperature 97.8 [degF] Dr. Saqib Juárez Work Phone: [facility] Work Phone: 03-03-2022 08:45-0400 Diastolic blood pressure 58 mm[Hg] Dr. Saqib Juárez Work Phone: [facility] Work Phone: 03-03-2022 08:45-0400 Heart rate 72 /min Dr. Saqib Juárez Work Phone: [facility] Work Phone: 03-03-2022 08:45-0400 Respiratory rate 17 /min Dr. Saqib Juárez Work Phone: [facility] Work Phone: 03-03-2022 08:45-0400 SaO2% (BldA) [Mass fraction] 97 % Dr. Saqib Juárez Work Phone: [facility] Work Phone: 03-03-2022 08:45-0400 Systolic blood pressure 114 mm[Hg] Dr. Saqib Juárez Work Phone: [facility] Work Phone: 03-02-2022 09:33-0400 Body height 160.[address] Saqib Juárez Work Phone: [facility] Work Phone: 03-02-2022 09:33-0400 Body weight 72.[address] Saqib Juárez Work Phone: [facility] Work Phone: 03-01-2022 08:40-0400 Body mass index (BMI) [Ratio] 28.3 kg/m2 Dr. Saqib Juárez Work Phone: [facility] Work Phone: 02-22-2022 08:57-0400 Body mass index (BMI) [Ratio] 28.3 kg/m2 Dr. Saqib Juárez Work Phone: [facility] Work Phone: 02-22-2022 08:57-0400 Body weight 72.[address] Saqib Juárez Work Phone: [facility] Work Phone: 02-22-2022 08:57-0400 Diastolic blood pressure 76 mm[Hg] Dr. Saqib Juárez Work Phone: [facility] Work Phone: 02-22-2022 08:57-0400 Heart rate 60 /min Dr. Saqib Juárez Work Phone: [facility] Work Phone: 02-22-2022 08:57-0400 Respiratory rate 16 /min Dr. Saqib Juárez Work Phone: [facility] Work Phone: 02-22-2022 08:57-0400 SaO2% (BldA) [Mass fraction] 98 % Dr. Saqib Juárez Work Phone: [facility] Work Phone: 02-22-2022 08:57-0400 Systolic blood pressure 121 mm[Hg] Dr. Saqib Juárez Work Phone: [facility] Work Phone: 02-22-2022 08:57-0400 Body mass index (BMI) [Ratio] 28.3 kg/m2 Dr. Saqib Juárez Work Phone: [facility] Work Phone: 02-22-2022 08:57-0400 Body weight 72.[address] Saqib Juárez Work Phone: [facility] Work Phone: 02-22-2022 08:57-0400 Diastolic blood pressure 76 mm[Hg] Dr. Saqib Juárez Work Phone: [facility] Work Phone: 02-22-2022 08:57-0400 Heart rate 60 /min Dr. Saqib Juárez Work Phone: [facility] Work Phone: 02-22-2022 08:57-0400 Respiratory rate 16 /min Dr. Saqib Juárez Work Phone: [facility] Work Phone: 02-22-2022 08:57-0400 SaO2% (BldA) [Mass fraction] 98 % Dr. Saqib Juárez Work Phone: [facility] Work Phone: 02-22-2022 08:57-0400 Systolic blood pressure 121 mm[Hg] Dr. Saqib Juárez Work Phone: [facility] Work Phone: 02-19-2022 15:12-0400 Body mass index (BMI) [Ratio] 28.3 kg/m2 Dr. Saqib Juárez Work Phone: [facility] Work Phone: 02-19-2022 15:12-0400 Body temperature 96.3 [degF] Dr. Saqib Juárez Work Phone: [facility] Work Phone: 02-19-2022 15:12-0400 Body weight 72.[address] Saqib Juárez Work Phone: [facility] Work Phone: 02-19-2022 15:12-0400 Diastolic blood pressure 68 mm[Hg] Dr. Saqib Juárez Work Phone: [facility] Work Phone: 02-19-2022 15:12-0400 Heart rate 72 /min Dr. Saqib Juárez Work Phone: [facility] Work Phone: 02-19-2022 15:12-0400 Respiratory rate 14 /min Dr. Saqib Juárez Work Phone: [facility] Work Phone: 02-19-2022 15:12-0400 SaO2% (BldA) [Mass fraction] 96 % Dr. Saqib Juárez Work Phone: [facility] Work Phone: 02-19-2022 15:12-0400 Systolic blood pressure 132 mm[Hg] Dr. Saqib Juárez Work Phone: [facility] Work Phone: 02-19-2022 15:12-0400 Body mass index (BMI) [Ratio] 28.3 kg/m2 Dr. Saqib Juárez Work Phone: [facility] Work Phone: 02-19-2022 15:12-0400 Body temperature 96.3 [degF] Dr. Saqib Juárez Work Phone: [facility] Work Phone: 02-19-2022 15:12-0400 Body weight 72.[address] Saqib Juárez Work Phone: [facility] Work Phone: 02-19-2022 15:12-0400 Diastolic blood pressure 68 mm[Hg] Dr. Saqib Juárez Work Phone: [facility] Work Phone: 02-19-2022 15:12-0400 Heart rate 72 /min Dr. Saqib Juárez Work Phone: [facility] Work Phone: 02-19-2022 15:12-0400 Respiratory rate 14 /min Dr. Saqib Juárez Work Phone: [facility] Work Phone: 02-19-2022 15:12-0400 SaO2% (BldA) [Mass fraction] 96 % Dr. Saqib Juárez Work Phone: [facility] Work Phone: 02-19-2022 15:12-0400 Systolic blood pressure 132 mm[Hg] Dr. Saqib Juárez Work Phone: [facility] Work Phone: 08-26-2017 09:38-0500 BMI (Body Mass Index) 25.92 kg/m2 [facility] Work Phone: 08-26-2017 09:38-0500 BP Diastolic 60 mm[Hg] [facility] Work Phone: [...] Mass Index) 25.4 kg/m2 Evelin Kulkarni [facility] Work Phone: 05-21-2017 15:38-0400 BP Diastolic 66 mm[Hg] Evelin Kulkarni RN [facility] Work Phone: 05-21-2017 15:38-0400 BP Systolic 120 mm[Hg] Evelin Kulkarni RN [facility] Work Phone: 05-21-2017 15:38-0400 Height 162.56 cm Evelin Kulkarni RN [facility] Work Phone: 05-21-2017 15:38-0400 Pulse (Heart Rate) 68 /min Evelin Kulkarni RN [facility] Work Phone: 05-21-2017 15:38-0400 Respiratory Rate 18 /min Evelin Kulkarni RN [facility] Work Phone: 05-21-2017 15:38-0400 Weight 67.13 kg Evelin Kulkarni RN [facility] Work Phone: 05-07-2017 12:53-0400 Body Temperature 99.2 [degF] Evelin Kulkarni RN [facility] Work Phone: Encounters Encounter Date Encounter Type Care Provider Facility Start: 06-21-2025 End: 06-21-2025 Patient encounter procedure Rosibel AU -Sleep Lab Work Phone: Start: 06-21-2025 End: 06-21-2025 ambulatory Saqib Juárez Facility:[facility] Start: 06-16-2025 End: 06-16-2025 Patient encounter procedure Rosibel AU -[facility] Work Phone: Start: 06-16-2025 End: 06-16-[address] Saqib Juárez MD Work Phone: -[facility] Start: 04-29-2025 End: 04-29-[address] Saqib Juárez MD -[facility] Work Phone: Start: 04-29-2025 End: 04-29-[address] Saqib Juárez MD Work Phone: -[facility] Start: 03-26-2025 Non-patient / Non-visit Dr. Farrukh DOOLEY -[facility] Start: 03-26-2025 End: 03-26-[address] Saqib Juárez MD Work Phone: -Cardiovascular Services Start: 03-26-2025 End: 03-26-[address] Yong Mora MD -Cardiovascular Services Work Phone: Start: 03-26-2025 End: 03-26-2025 ambulatory Yong Mora Facility:[facility] Start: 03-23-2025 End: 03-23-[address] Yong oMra MD -[facility] Work Phone: Start: 03-23-2025 End: 03-23-[address] Saqib Juárez MD Work Phone: [facility] Work Phone: Start: 03-16-2025 End: 03-16-2025 Patient encounter procedure Rosibel KULKARNIC -[facility] Work Phone: Start: 03-16-2025 End: 03-16-[address] Saqib Juárez MD Work Phone: [facility] Work Phone: Start: 01-22-2025 End: 01-22-2025 ambulatory Saqib Juárez Facility:[facility] Start: 01-22-2025 End: 01-22-[address] Saqib Juárez MD -Physical Therapy Work Phone: Start: 12-30-2024 End: 12-30-[address] Saqib Juárez MD -[facility] Work Phone: Start: 12-30-2024 End: 12-30-2024 ambulatory Saqib Juárez Facility:[facility] Start: 12-04-2024 End: 12-04-[address] Saqib Juárez MD Work Phone: [facility] Work Phone: Start: 12-04-2024 End: 12-04-[address] Daniel Lim MD -Physical Therapy Work Phone: Start: 12-01-2024 End: 12-01-[address] Saqib Juárez MD -Laboratory, Specimen Work Phone: Start: 12-01-2024 End: 12-01-[address] Saqib Juárez MD Work Phone: [facility] Work Phone: Start: 12-01-2024 End: 12-01-2024 ambulatory Saqib Juárez Facility:[facility] Start: 08-31-2024 End: 08-31-2024 Patient encounter procedure Paul Ferguson Rex RESIDENTIAL CARE OFFICER-C -[facility] Work Phone: Start: 08-31-2024 End: 08-31-2024 Patient encounter status Paul Ferguson Rex -C [facility] Start: 08-31-2024 End: 08-31-2024 ambulatory Paul Ferguson Rex Facility:[facility] Start: 08-17-[address] Saqib Juárez MD Work Phone: [facility] Start: 08-17-2024 End: 08-17-[address] Saqib Juárez MD [facility] Work Phone: Start: 08-17-2024 End: 08-17-[address] Saqib Juárez MD [facility] Start: 08-17-2024 End: 08-17-2024 ambulatory Saqib Meena Facility:[facility] Start: 07-13-2024 End: 07-13-2024 ambulatory Saqib Juárez Facility:[facility] Start: 03-17-[address] Saqib Juárez MD Work Phone: [facility] Comment on above: October 07, 2024 ri ght knee replacement Start: 02-06-2024 End: 02-06-[address] Saqib Juárez Work Phone: [facility] Work Phone: Start: 02-03-2024 End: 02-03-[address] Saqib Juárez Work Phone: [facility] Work Phone: Start: 02-03-2024 End: 02-03-[address] Saqib Juárez Work Phone: [facility]-Laboratory Work Phone: Start: 01-31-2024 End: 01-31-[address] Saqib Juárez Work Phone: [facility] Work Phone: Start: 01-31-2024 End: 01-31-[address] Saqib Juárez Work Phone: [facility]-Laboratory Work Phone: Start: 05-07-2023 Non-patient / Non-visit Dr. Leonela Juárez Work Phone: [facility] Start: 05-07-2023 End: 05-07-2023 Admission to same day surgery center Dr. Saqib Juárez Work Phone: [facility]-Endoscopy Work Phone: Start: 05-07-2023 End: 05-07-[address] Saqib Juárez Work Phone: [facility] Work Phone: Start: 04-04-2023 End: 04-04-[address] Saqib Juárez Work Phone: [facility] Work Phone: Start: 03-14-2023 End: 03-14-[address] Saqib Juárez Work Phone: [facility]-Pulmonary Medicine [facility] Work Phone: Start: 03-12-2023 End: 03-12-[address] Saqib Juárez Work Phone: [facility] Work Phone: Start: 09-10-2022 End: 09-10-2022 Emergency department patient visit Dr. Saqib Juárez Work Phone: [facility]-Emergency Department Start: 09-07-2022 End: 09-07-[address] Saqib Juárez Work Phone: [facility] Start: 09-06-2022 End: 09-06-[address] [facility] Start: 07-26-2022 End: 07-26-[address] Saqib Juárez Work Phone: [facility] Start: 07-20-2022 End: 07-30-[address] Saqib Juárez Work Phone: [facility] Work Phone: Start: 07-20-2022 End: 07-30-[address] Saqib Juárez Work Phone: [facility]-Cardiac Rehab Start: 07-10-2022 End: 07-10-[address] Saqib Juárez Work Phone: [facility] Work Phone: Start: 07-10-2022 End: 07-10-[address] Saqib Juárez Work Phone: [facility]-Sleep Lab Start: 07-06-[address] Saqib Juárez Work Phone: [facility]-Cardiac Rehab Start: 06-29-2022 End: 06-29-[address] Saqib Juárez Work Phone: [facility] Work Phone: Start: 06-29-2022 End: 06-29-[address] Saqib Juárez Work Phone: [facility]-Cardiac Rehab Start: 06-28-2022 End: 06-28-[address] [facility]rez [facility] Start: 05-23-2022 End: 05-30-[address] Saqib Juárez Work Phone: [facility] Work Phone: Start: 05-23-2022 End: 05-30-[address] Saqib Juárez Work Phone: [facility]-Cardiac Rehab Start: 05-17-2022 End: 05-17-[address] Saqib Juárez Work Phone: [facility]-Pulmonary Medicine [facility] Start: 04-27-2022 End: 04-29-[address] Saqib Juárez Work Phone: [facility]-Cardiac Rehab Start: 04-17-2022 End: 04-17-[address] Saqib Juárez Work Phone: [facility]-Sleep Lab Start: 04-16-2022 End: 04-16-[address] Saqib Juárez Work Phone: [facility]-Cardiac Rehab Start: 04-10-2022 Non-patient / Non-visit Dr. Lenoela Juárez Work Phone: [facility] Start: 03-19-2022 End: 03-19-[address] Saqib Juárez Work Phone: [facility]-Laboratory Start: 03-16-2022 End: 03-16-[address] Saqib Juárez Work Phone: [facility] Start: 03-08-2022 End: 03-08-[address] Saqib Juárez Work Phone: [facility] Start: 03-07-2022 End: 03-07-[address] Saqib Juárez Work Phone: [facility]-Sleep Lab Start: 03-03-2022 Non-patient / Non-visit Dr. Leonela Juárez Work Phone: [facility] Start: 03-03-2022 Non-patient / Non-visit Dr. Leonela Juárez Work Phone: [facility] Start: 03-02-2022 End: 03-03-2022 Evaluation and management of inpatient Dr. Saqib Juárez Work Phone: [facility]-Progressive Care Unit Start: 02-22-2022 End: 02-22-[address] Saqib Juárez Work Phone: [facility] Start: 02-19-2022 End: 02-19-[address] Saqib Juárez Work Phone: [facility] Internal Medicine Procedures Date Procedure Procedure Detail Performing Clinician Start: 12-01-[address] Saqib Juárez MD Work Phone: Start: 05-07-[address] Saqib Juárez Work Phone: Start: 09-10-2022 X-ray of both feet Dr. Saqib Juárez Work Phone: Start: 03-02-2022 History of placement of stent for coronary artery disease History of coronary artery stent placement Dr. Saqib Juárez MD Comment on above: [id number] LAD at D2 bifurcation w/ 3.[address] [facility] Stent and POBA-D2 03/02/22; Start: 02-22-2022 Plain [...] Phone: Start: 05-21-2017 End: 05-22-2017 Referral to assistant director of admissions Wil Rivas MD Work Phone: Start: 05-07-2017 End: 05-14-2017 Chest x-ray Wil Rivas MD Work Phone: Start: 05-07-2017 End: 05-15-2017 SURINDER Rivas MD Work Phone: Start: 05-07-2017 End: 05-15-2017 Follow up Appt 3 weeks Wil Rivas MD Work Phone: Start: 05-07-2017 End: 05-08-2017 Referral to assistant director of admissions Wil Rivas MD Work Phone: Start: 05-06-2017 End: 05-15-2017 Echocardiography Wil Rivas MD Work Phone: Start: 05-01-2017 End: 05-01-2017 SURINDER Goodman NP Work Phone: Start: 05-01-2017 End: 05-01-2017 Echocardiography Paul Goodman RESIDENTIAL CARE OFFICER Work Phone: Plan of Treatment Date Care Activity Detail Author Start: 06-16-2025 [facility] Start: 12-30-2024 Patient referral [facility] Work Phone: Start: 08-31-2024 Patient referral [facility] Work Phone: Start: 08-17-2024 Patient referral [facility] Work Phone: Start: 02-06-2024 Patient referral [facility] Work Phone: Start: 05-07-2023 Patient discharge [facility] Start: 04-10-2022 Patient referral [facility] Work Phone: Start: 03-05-2022 Patient referral [facility] Work Phone: Start: 03-03-2022 Patient discharge [facility] Work Phone: Start: 03-02-2022 Admission procedure [facility] Work Phone: Start: 03-02-2022 Following clinical pathway protocol [facility] Work Phone: Start: 03-02-2022 Cardiac monitoring [facility] Work Phone: Start: 03-02-2022 Cardiac rehabilitation - phase 1 [facility] Work Phone: Start: 03-02-2022 Cardiac rehabilitation - phase 2 [facility] Work Phone: Start: 03-02-2022 Oxygen therapy [facility] Work Phone: Start: 03-02-2022 Patient discharge [facility] Work Phone: Start: 03-02-2022 Systemic arterial pressure monitoring [facility] Work Phone: Start: 03-02-2022 Vascular disease risk assessment [facility] Work Phone: Start: 03-02-2022 Vital signs measurements [facility] Work Phone: Start: 03-02-2022 End: 03-02-2022 [facility] Work Phone: Start: 03-02-2022 End: 03-02-2022 Notification of physician [facility] Work Phone: Start: 03-02-2022 Patient education [facility] Work Phone: Start: 03-02-2022 Pulse taking [facility] Work Phone: Start: 03-02-2022 End: 03-02-2022 Taking patient vital signs [facility] Work Phone: Start: 03-02-2022 Wound care [facility] Work Phone: Start: 03-02-2022 Admission procedure [facility] Work Phone: Start: 03-02-2022 Assessment of risk of venous thromboembolism [facility] Work Phone: Start: 03-02-2022 Insertion of catheter into peripheral vein [facility] Work Phone: Start: 03-02-2022 Measuring intake and output [facility] Work Phone: Start: 03-02-2022 Providing care according to standard [facility] Work Phone: Start: 03-02-2022 Inhalation therapy procedure [facility] Work Phone: Start: 02-19-2022 Patient referral [facility] Work Phone: Start: 10-03-2017 End: 10-03-2017 Appointment Appointment [facility] Work Phone: Start: 09-30-2017 End: 08-26-2017 *Hepatic Function Panel *Hepatic Function Panel [facility] Work Phone: Start: 09-30-2017 End: 08-26-2017 Lipid panel [AGGREGATE] *Lipid Profile CC [facility]CP [facility] Work Phone: Start: 08-26-2017 End: 08-26-2017 [facility] Work Phone: Start: 08-26-2017 End: 08-26-2017 Follow Up Appt 6 months Follow Up Appt 6 months [facility] Work Phone: Start: 08-26-2017 End: 08-26-2017 Appointment [facility] Phone: Start: 06-17-2017 End: 06-24-2017 *Hepatic Function Panel *Hepatic Function Panel [facility] Work Phone: Start: 06-17-2017 End: 06-24-2017 Lipid panel [AGGREGATE] *Lipid Profile CC PCP [facility] Work Phone: Start: 05-21-2017 End: 05-22-2017 *Hepatic Function Panel *Hepatic Function Panel [facility] Work Phone: Start: 05-21-2017 End: 05-22-2017 Cardiac Rehab Card[facility] Re[facility] [address] [place], [address] [facility] Work Phone: Start: 05-21-2017 End: 05-21-2017 SURINDER CADENA [facility] Work Phone: Start: 05-21-2017 End: 05-21-2017 Follow Up Appt 3 months Follow Up Appt 3 months [facility] Work Phone: Start: 05-21-2017 End: 05-22-2017 Lipid panel [AGGREGATE] *Lipid Profile CC PCP [facility] Work Phone: Start: 05-07-2017 End: 05-07-2017 Cardiac Rehab Cardiac Rehab [address] [place], [address] [facility] Work Phone: Start: 05-07-2017 End: 05-14-2017 Chest x-ray X-Ray, Chest, PA & Lateral [facility] Work Phone: Start: 05-07-2017 End: 05-15-2017 SURINDER CADENA [facility] Work Phone: Start: 05-07-2017 End: 05-15-2017 Follow up Appt 3 weeks Follow up Appt 3 weeks [facility] Work Phone: Start: 05-06-2017 End: 05-06-2017 Echocardiography Echocardiogram (complete) [facility] Work Phone: Start: 05-01-2017 End: 05-01-2017 SURINDER CADENA [facility] Work Phone: Start: 05-01-2017 End: 05-01-2017 Follow Up Appt 6 months Follow Up Appt 6 months [facility] Work Phone: Catheterization of l eft heart [facility] Work Phone: Colonoscopy [facility] Lipid 1996 panel - S maury or Plasma [facility] Work Phone: Patient referral [facility] Work Phone: T4 free measurement [facility] Work Phone: Thyroid stimulating hormone measurement [facility] Work Phone: Immunizations Immunization Date Immunization Notes Care Provider [facility] 06-16-2025 Seasonal trivalent influenza vaccine, adjuvanted, preservative free Dr. Saqib Juárez MD Work Phone: [facility] 08-17-2024 Seasonal trivalent influenza vaccine, adjuvanted, preservative free Dr. Saqib Juárez MD Work Phone: [facility] 07-16-[address] Saqib Juárez Work Phone: [facility] Payers Date Payer Category Payer Self-pay [id number] 2021 Unknown [id number] 2009 Medicare [id number] [facility] [id number] Unknown [id number] Unknown [id number] 2.16.8 [id number] Unknown [id number] 2.16.8 [id number] Unknown [id number] 2.16.8 [id number] Unknown [id number] 2.16.8 [id number] Unknown [id number] 2.16.8 [id number] Unknown [id number] 2.16.8 [id number] Unknown [id number] 2.16.8 [id number] Unknown [id number] 2.16.8 [id number] Unknown [id number] 2.16.8 [id number] Unknown [id number] 2.16.8 [id number] Unknown [id number] 2.16.8 [id number] Unknown [id number] 2.16.8 [id number] Unknown [id number] 2.16.8 [id number] Unknown [id number] 2.16.8 [id number] Unknown [id number] 2.16.8 [id number] Social History Date Type Detail Facility Start: 03-01-2022 End: 09-02-2023 Tobacco smoking status NHIS Unknown if ever smoked [facility] Start: 02-20-2021 Non-smoker [facility] Start: 1945 Sex Assigned At Female [facility] Start: 08-31-2024 Tobacco smoking status NHIS Ex-smoker (finding) [facility] Start: 12-07-2024 End: 12-15-2024 Sex Female (finding) [facility] Sex Female [facility] NEGATED: Highlighted row [facility] Medical Equipment Procedure Code Equipment Code Equipment Origin al Text Equipment Identifier Dates ([id number]) Drug-eluting coronary artery stent, bioabsorbable-polyme r-coated [id number] FDA Start: 03-02-2022 Goals Date Patient Goal Desired Activity /State Functional Status Date Assessment Result Facility 03-03-2022 Functional status Activity Abili ty Unable to Assess [facility] Work Phone: Mental Status Date Assessment Result Facility 05-07-2023 Cognitive function Voice/Name [facility] Work Phone: 03-03-2022 Cognitive function Appropriate;Cooperativ e [facility] Work Phone: Clinical Notes 04-08-2017 to 04-29-2025 Note Date & Type Note Facility 04-29-2025 Progress note [facility] 04-29-2025 Progress note Note Date/Time April 29, 2025 12:13pm [facility] [address] [place] [address] OFFICE VISIT Date of Service: 04/29/25 MR#: [id number] Acct: [id number] Name: KARYN MULLER Rep #: [id number] : 1945 Provider: Dr. 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 She developed URI symptoms while in [place] last week. Worsened on the way home. 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 transplanted heart: [place] heart History of coronary artery stent placement Z95.5 H/O aortic valve replacement Z95.2 Time Spent (min) 30 Assessment and Plan Assessment and Plan (1) Asthma: Status: Chronic Qualifiers: Asthma severity: moderate Asthma persistence: persistent Asthma complication type: uncomplicated Qualified Code(s): J45.40 - Moderate persistent asthma, uncomplicated Comment: Dougie (2) Asthmatic bronchitis: Status: Acute (3) Atherosclerotic heart disease [place] coronary artery w/angina pectoris: Status: Acute Qualifiers: [place] vs. transplanted heart: [place] heart Qualified Code(s): I25.119 - Atherosclerotic heart disease of [place] coronary artery with unspecified angina pectoris Comment: SLZ-FGX-Yafn LAD at D2 bifurcation w/ 3.5 x 18 mm Orsiro [place] Stent and POBA-D2 03/02/22; (4) History of coronary artery stent placement: Status: Acute Comment: YVB-NFY-Muxl LAD at D2 bifurcation w/ 3.5 x 18 mm Orsiro [place] Stent and POBA-D2 03/02/22; (5) H/O aortic valve replacement: Status: Chronic Comment: # 21 Trifecta Valve @ [facility] Dr [place] Medications: New azithromycin 500 [...] webster MD> Date _ [facility] Signature: Date (if applicable) CC: ~ [facility] Work Phone: 1(446) 753-308306-17-2025 Evaluation note* Diagnosis Onset Date Resolution Status Admit Date Asthma chronic March 16 3:17pm JOSE (obstructive sleep apnea) chronic March 16, 2025 3:17pm Overweight chronic March 16 3:17pm Atherosclerotic heart disease [place] coronary artery w/angina pectoris acute March 232024 2:25pm Essential (primary) hypertension chronic March 23, 2025 2:25pm H/O aortic valve replacement April 08, 2017 ch ronic March 23, 2025 2:25pm Hyperlipidemia chronic March 23, 2025 2:25pm Asthmatic bronchitis acute April 29, 2025 11:38am Atherosclerotic heart disease [place] coronary artery w/angina pectoris acute April 292024 11:38am History of coronary artery stent placement March 02, 2022 acute April 29, 2025 11:38am Asthma chronic April 29 11:38am H/O aortic valve replacement April 08, 2017 shahid atkinsic April 29, 2025 11:38am Asthma chronic May 3:17pm JOSE (obstructive sleep apnea) chronic June 16, 2025 3:17pm Overweight chronic May 3:17pm [facility] Work Phone: 1([phone]) 808-342304-02-2025 Evaluation note* Diagnosis Onset Date Resolution Status Admit Date Left hip pain noneactive December 30, 2024 9:35am [facility] Work Phone: 1(347) 164-580804-02-2025 Evaluation note* Diagnosis Onset Date Resolution Status Admit Date Left hip pain noneactive December 30, 2024 9:35am Asthma chronic March 16 3:17pm JOSE (obstructive sleep apnea) chroni c March 16, 2025 3:17pm Overweight chronic March 16 3:17pm [facility] Work Phone: 1(980) 338-527804-02-2025 Evaluation note* Diagnosis Onset Date Resolution Status Admit Date Left hip pain noneactive December 30, 2024 9:35am Asthma chronic March 16 3:17pm JOSE (obstructive sleep apnea) chroni c March 16, 2025 3:17pm Overweight chronic March 16 3:17pm Atherosclerotic heart diseas e [place] coronary artery w/angina pectoris acute March 23 2:25pm Essential (primary) hypertension chronic March 23, 2025 2:25pm H/O aortic valve replacement April 08, 2017 ch millyic March 23, 2025 2:25pm Hyperlipidemia chronic March 23, 2025 2:25pm [facility] Work Phone: 1(325) 297-742604-02-2025 Evaluation note* Diagnosis Onset Date Resolution Status Admit Date Left hip pain noneactive December 30, 2024 9:35am Asthma chronic March 16 3:17pm JOSE (obstructive sleep apnea) chroni c March 16, 2025 3:17pm Overweight chronic March 16 3:17pm Atherosclerotic heart diseas e [place] coronary artery w/angina pectoris acute March 23 2:25pm Essential (primary) hypertension chronic March 23, 2025 2:25pm H/O aortic valve replacement April 08, 2017 ch ronic March 23, 2025 2:25pm Hyperlipidemia chronic March 23, 2025 2:25pm Asthmatic bronchitis acute April 29, 2025 11:38am Atherosclerotic heart diseas e [place] coronary artery w/angina pectoris acute April 29 11:38am History of coronary artery stent placement March 02, 2022 acute April 29, 2025 11:38am Asthma chronic April 29 11:38am H/O aortic valve replacement April 08, 2017 ch ronic April 29, 2025 11:38am [facility] Work Phone: 1(575) 561-318803-07-2025 Discharge summary Author Sonu Mast [facility] Note Date/Time December 04, 2024 6:00 pm [facility] Physical Therapy [facility] [address] [place] [address] [address] [place] [id number] / REHABILITATION SERVICES DISCHARGE SUMMARY MR#: [id number] Acct: [id number] Name: KARYN MULLER Rep #: [id number] : 1945 79 From: Sonu Mast PT, ATC Referring Dr.: Dr. Daniel Lim MD Status: REG RCR Insurance: MEDICARE PART A B [facility] Discharge Summary D/C summary: It has been my pleasure to treat KARNY MULLER referred by Dr. Daniel Lim MD, [...] please feel free to call me at [phone]. Thank you for the referral of thispatient. Sincerely, Sonu Mast PT, ATC Balance/Gait/Functional tests Balance/Special Test Scores Lower Extremity Functional Score: 27 WOMAC Total Score: 20 WOMAC Percentage: 79.1700 Improvement % Improvement: 90 <Electronically signed by Sonu Mast PT, ATC> 12/04/24 1233 CC: Dr. Daniel Lim MD; Dr. Saqib Juárez MD ~ [facility] Signed [facility] Work Phone: 1([phone]) 635-594003-07-2025 Discharge summary [facility] Physical Therapy [facility] [address] [place] [address] [address] [place] [address] / REHABILITATION SERVICES DISCHARGE SUMMARY MR#: [id number] Acct: [id number] Name: KARYN MULLER Rep #: [id number] : 1945 79 From: Sonu Mast PT, ATC Referring DrMony: Dr. Daniel Lim MD Status: REG RCR Insurance: MEDICARE PART A B [facility] Discharge Summary D/C summary: It has [...] please feel free to call me at [phone]. Thank you for the referral of thispatient. Sincerely, Sonu Mast, PT, ATC Balance/Gait/Functional tests Balance/Special Test Scores Lower Extremity Functional Score: 27 WOMAC Total Score: 20 WOMAC Percentage: 79.1700 Improvement % Improvement: 90 12/04/24 1233 CC: Dr. Daniel Lim MD; Dr. Saqib Juárez MD ~ [facility] Signed [facility]08-08-2023 History and physical note Author Bill Salas [facility] May 07, 2023 7:46am Note Date/Time May 07, 2023 7:4 6am [facility] Medical Records Department [address] [place] [address] History & Physical Exam 05/07/23 0746 MR#: [id number] Acct: [id number] Name: KARYN MULLER Rep #:[id number] : 1945 77 From: Bill Salas MD PCP: Dr. Saqib Juárez MD Status:[facility] Location: [place] [address] History and Physical Date of Admission: 05/07/23 [...] mg PO DAILY 03/12/23 [History Confirmed 04/04/23] [facility] Medical History Atherosclerotic heart disease [place] coronary artery w/angina pectoris Bereavement counseling Bereavement [...] diagonal. By report while she was in [place] she was seen at the [facility] extension. She had an echocardiogram showing ejection [...] [place] and she is also been in [place]. She did a significant mount of walking [...] and no acute distress Nutritional Appearance: overweight [facility] Head: normal to inspection Eyes General: [...] Juárez MD; Dr. Bill Salas MD~ Signed [facility] Work Phone: 1([phone]) 366-479308-08-[address] [facility] 05-07-[address] [facility]07-10-2023 Evaluation note* Diagnosis Onset Date Resolution Status Atherosclerotic heart diseas e [place] coronary artery w/angina pectoris acute Dyspnea on exertion acute Palpitations acute Essential (primary) hypertension chronic H/O aortic valve replacement April 08, 2017 chronic Hyperlipidemia chronic Asthma acute JOSE (obstructive sleep apnea) chronic Personal history of colonic polyps acute [facility] Work Phone: 1([phone]) 357-855006-03-2022 Evaluation note* Diagnosis Onset Date Resolution Status History of coronary artery stent placement March 02 acute Essential (primary) hypertension chronic H/O aortic valve replacement April 08, 2017 chronic History of coronary artery stent placement March 02 acute Screening for intestinal cancer acute Atherosclerotic heart diseas e [place] coronary artery w/angina pectoris acute Dyspnea on exertion acute History of coronary artery stent placement March 02 acute Essential (primary) hypertension chronic H/O aortic valve replacement April 08, 2017 chronic Hyperlipidemia chronic Asthma acute JOSE (obstructive sleep apnea) acute Asthma acute JOSE (obstructive sleep apnea) [facility] Work Phone: [phone]) 651-460706-03-2022 Evaluation note* Diagnosis Onset Date Resolution Status Atherosclerotic heart diseas e [place] coronary artery w/angina pectoris acute Dyspnea on exertion acute History of coronary artery stent placement March 02 acute Essential (primary) hypertension chronic H/O aortic valve replacement April 08, 2017 chronic Hyperlipidemia chronic Asthma acute JOSE (obstructive sleep apnea) acute Asthma acute JOSE (obstructive sleep apnea) [facility] Work Phone: 1(344) 394-900006-03-2022 Evaluation note* Diagnosis Onset Date Resolution Status [...] 17, 2024 1:48pm Atherosclerotic heart diseas e [place] coronary artery w/angina pectoris acute August 31, 2024 11:08am Preop cardiovascular exam acute August 31, 2024 11:08am Essential (primary) hypertension chronic August 31 11:08am H/O aortic valve replacement April 08, 2017 ch ronic August 31, 2024 11:08am Hyperlipidemia chronic August 312023 11:08am [facility] Work Phone: 1([phone]) 636-787312-13-2021 NoteHNO ID: [id number] Author: Ivett Kong Population Health Navigator Service: [...] healthcare decisions with a power of insurance defense attorney, living will, or advance directives? NO Referrals: N/A Message Sent to Practice: NO Navigation Signature: Ivett Kong Population Health Navigator September 11, 2021 1:23 [facility]12-13-2021 NotePatient Outreach (NETNAV) KARYN MULLER ([id number]) 1945 F Date Time Provider Department 09/11/21 [...] healthcare decisions with a power of insurance defense attorney, living will, or advance directives? NO [...] Status:Closed by ALEXANDRO LOPEZ (more content not included)...[facility]07-10-2017 Evaluation note* Diagnosis Onset Date Resolution Status Dyspnea on exertion acute Sleep apnea acute Essential (primary) hypertension chronic H/O aortic valve replacement April 08, 2017 chronic Hyperlipidemia chronic Atherosclerotic heart diseas e [place] coronary artery w/angina pectoris acute Dyspnea on exertion acute Essential (primary) hypertension chronic H/O aortic valve replacement April 08, 2017 [facility] Work Phone: 1([phone]) 644-356307-10-2017 Evaluation note* Diagnosis Onset Date Resolution Status Dyspnea on exertion acute Sleep apnea acute Essential (primary) hypertension chronic H/O aortic valve replacement April 08, 2017 chronic Hyperlipidemia chronic Atherosclerotic heart diseas e [place] coronary artery w/angina pectoris acute Dyspnea on exertion acute Essential (primary) hypertension chronic H/O aortic valve replacement April 08, 2017 chronic History of coronary artery stent placement March 02 acute Essential (primary) hypertension chronic H/O aortic valve replacement April 08, 2017 [facility] Work Phone: 1([phone]) 230-763507-10-2017 Evaluation note* Diagnosis Onset Date Resolution Status Dyspnea on exertion acute Sleep apnea acute Essential (primary) hypertension chronic H/O aortic valve replacement April 08, 2017 chronic Hyperlipidemia chronic Atherosclerotic heart diseas e [place] coronary artery w/angina pectoris acute Dyspnea on exertion acute Essential (primary) hypertension chronic H/O aortic valve replacement April 08, 2017 chronic History of coronary artery stent placement March 02 acute Essential (primary) hypertension chronic H/O aortic valve replacement April 08, 2017 chronic History of coronary artery stent placement March 02 acute Screening for intestinal cancer acute Atherosclerotic heart diseas e [place] coronary artery w/angina pectoris acute Dyspnea on exertion acute History of coronary artery stent placement March 02 acute Essential (primary) hypertension chronic H/O aortic valve replacement April 08, 2017 chronic Hyperlipidemia [facility] Work Phone: 1([phone]) 388-825607-10-2017 Evaluation note* Diagnosis Onset Date Resolution Status Dyspnea on exertion acute Sleep apnea acute Essential (primary) hypertension chronic H/O aortic valve replacement April 08, 2017 chronic Hyperlipidemia chronic Atherosclerotic heart diseas e [place] coronary artery w/angina pectoris acute Dyspnea on exertion acute Essential (primary) hypertension chronic H/O aortic valve replacement April 08, 2017 chronic History of coronary artery stent placement March 02 acute Essential (primary) hypertension chronic H/O aortic valve replacement April 08, 2017 chronic History of coronary artery stent placement March 02 acute Screening for intestinal cancer acute Atherosclerotic heart diseas e [place] coronary artery w/angina pectoris acute Dyspnea on exertion acute History of coronary artery stent placement March 02 022 acute Essential (primary) hypertension chronic H/O aortic valve replacement April 08, 2017 chronic Hyperlipidemia chronic Asthma acute JOSE (obstructive sleep apnea) [facility] Work Phone: Evaluation note* Diagnosis Onset Date Resolution Status Asthma acute JOSE (obstructive sleep apnea) acute Asthma acute JOSE (obstructive sleep apnea) acute Atherosclerotic heart diseas e [place] coronary artery w/angina pectoris acute Chronic GERD chronic Essential (primary) hypertension chronic H/O aortic valve replacement April 08, 2017 chronic Hyperlipidemia [facility] Work Phone: Evaluation note* Diagnosis Onset Date Resolution Status Asthma acute JOSE (obstructive sleep apnea) chronic Asthma acute JOSE (obstructive sleep apnea) chronic Atherosclerotic heart diseas e [place] coronary artery w/angina pectoris acute Chronic GERD chronic Essential (primary) hypertension chronic H/O aortic valve replacement April 08, 2017 chronic Hyperlipidemia chronic Asthma acute JOSE (obstructive sleep apnea) chronic Atherosclerotic heart diseas e [place] coronary artery w/angina pectoris acute History of coronary artery stent placement March 02 022 acute Essential (primary) hypertension chronic Fatigue chronic H/O aortic valve replacement April 08, 2017 chronic Hyperlipidemia [facility] Work Phone: Evaluation note* Diagnosis Onset Date Resolution Status Atherosclerotic heart diseas e [place] coronary artery w/angina pectoris acute Right knee DJD acute Right knee pain acute Essential (primary) hypertension chronic H/O aortic valve replacement April 08, 2017 chronic Hyperlipidemia chronic JOSE (obstructive sleep apnea) [facility] Work Phone: [facility] Work Phone: [phone] Discharge instructions[facility] Work Phone: [phone] Work Phone: [phone] Discharge instructions[facility] Work Phone: [phone] Discharge instructionsSum[facility] Work Phone: [phone] Dis[facility] instructionsWSt. [facility] Work Phone: [phone] Discharge instructionsAmbulatory Orders* Orthopedics Location: None Selected [facility] Work Phone: Reason for referral (narrative)No reason for referral information availableSanta [facility] Work Phone: Summary Purpose Family History Relationship Condition Age at Onset Recorded Date/T amber brother Cardiac disease Unknown Coronary artery disease Unknown Advance Directives Advance Directive Response Recorded Date/ Time Advance Directives No March 01 8:47am Living Will No March 01, 2022 8 :47am Power of Tumbler Machine Operator Helper No March 01, 2022 8:47am Advance Directive Response Recorded Date/ Time Advance Directives Yes March 02 9:33am Living Will Yes March 02, 2022 9 :33am Power of Tumbler Machine Operator Helper Yes March 02, 2022 9:33am Advance Directive Response Recorded Date/ Time Advance Directives on File Yes March 02, 2022 9:33am Name of Medical Power of Tumbler Machine Operator Helper ashlee abbott March 02, 2022 9:33am Advance Directives Yes March 02 9:33am Living Will Yes March 02, 2022 9 :33am Power of Tumbler Machine Operator Helper Yes March 02, 2022 9:33am Advance Directive Response Recorded Date/ Time Advance Directives on File Yes March 02, 2022 9:33am Name of Medical Power of Tumbler Machine Operator Helper ashlee abbott March 02, 2022 9:33am Advance Directives on File Yes April 16, 2022 11:25am Advance Directives Yes March 02 9:33am Living Will Yes April 16, 2022 11:25am Power of Tumbler Machine Operator Helper Yes April 16 11:25am Advance Directive Response Recorded Date/ Time Advance Directives on File Yes April 16, 2022 11:25am Advance Directives Yes March 02 9:33am Living Will Yes April 16, 2022 11:25am Power of Tumbler Machine Operator Helper Yes April 16 11:25am Advance Directive Response Recorded Date/ Time Advance Directives Yes September 07, 2022 4:12pm Living Will No September 10 12:17pm Power of Tumbler Machine Operator Helper No September 10, 2022 12:17pm Advance Directive Response Recorded Date/ Time Advance Directives Yes September 07, 2022 5:12pm Living Will Yes May 03, 2023 3:42pm Power of Tumbler Machine Operator Helper No May 03 3:42pm Advance Directive Response Recorded Date/ Time Living Will Yes May 03, 2023 3:42pm Power of Tumbler Machine Operator Helper No May 03 3:42pm Advance Directives Yes May 01 9:54am Advance Directive Response Recorded Date/ Time Living Will Yes May 03, 2023 3:42pm Do you have a Healthcare Power of Tumbler Machine Operator Helper? No May 03, 2023 3:42pm Advance Directives Yes May 01 9:54am Chief Complaint and Reason for Visit Chief Complaint 8 month f/u 6 M FU/PER PCP CHEST PAIN Reason for Visit Dyspnea on exertion Sleep apnea Essential (primary) hypertension H/O aortic valve replacement Hyperlipidemia Atherosclerotic heart disease [place] coronary artery w/angina pectoris Dyspnea on exertion Essential (primary) hypertension H/O aortic valve replacement Chief Complaint 8 month f/u 6 M FU/PER PCP CHEST PAIN RIOS CAD RIOS CAD Reason for Visit Dyspnea on exertion Sleep apnea Essential (primary) hypertension H/O aortic valve replacement Hyperlipidemia Atherosclerotic heart disease [place] coronary artery w/angina pectoris Dyspnea on exertion [...] aortic valve replacement Hyperlipidemia Atherosclerotic heart disease [place] coronary artery w/angina pectoris Dyspnea on exertion Essential (primary) hypertension H/O aortic valve replacement History of coronary artery stent placement Essential (primary) hypertension H/O aortic valve replacement History of coronary artery stent placement Screening for intestinal cancer Atherosclerotic heart disease [place] coronary artery w/angina pectoris Dyspnea on exertion [...] aortic valve replacement Hyperlipidemia Atherosclerotic heart disease [place] coronary artery w/angina pectoris Dyspnea on exertion Essential (primary) hypertension H/O aortic valve replacement History of coronary artery stent placement Essential (primary) hypertension H/O aortic valve replacement History of coronary artery stent placement Screening for intestinal cancer Atherosclerotic heart disease [place] coronary artery w/angina pectoris Dyspnea on exertion [...] aortic valve replacement Hyperlipidemia Atherosclerotic heart disease [place] coronary artery w/angina pectoris Dyspnea on exertion Essential (primary) hypertension H/O aortic valve replacement History of coronary artery stent placement Essential (primary) hypertension H/O aortic valve replacement History of coronary artery stent placement Screening for intestinal cancer Atherosclerotic heart disease [place] coronary artery w/angina pectoris Dyspnea on exertion [...] aortic valve replacement Hyperlipidemia Atherosclerotic heart disease [place] coronary artery w/angina pectoris Dyspnea on exertion Essential (primary) hypertension H/O aortic valve replacement History of coronary artery stent placement Essential (primary) hypertension H/O aortic valve replacement History of coronary artery stent placement Screening for intestinal cancer Atherosclerotic heart disease [place] coronary artery w/angina pectoris Dyspnea on exertion [...] Screening for intestinal cancer Atherosclerotic heart disease [place] coronary artery w/angina pectoris Dyspnea on exertion [...] Reason for Visit Atherosclerotic hear t disease [place] coronary artery w/angina pectoris Dyspnea on exertion [...] JOSE (obstructive sleep apnea) Atherosclerotic heart disease [place] coronary artery w/angina pectoris Chronic GERD Essential (primary) hypertension H/O aortic valve replacement Hyperlipidemia Chief Complaint 1 Y FU PCI w/coronary stenting 6 W FU PCI w/coronary stenting OBSTRUCTIVE SLEEP APNEA PCI w/coronary stenting Trouble sleeping, not feeling well 2 M FU 1 y fu/ had to r/s from [employer]ING [employer]PA[employer] HEL[employer] d/t leaving state lower extremity Reason for Visit Asthma JOSE (obstructive sleep apnea) Asthma JOSE (obstructive sleep apnea) Atherosclerotic heart disease [place] coronary artery w/angina pectoris Chronic GERD Essential (primary) hypertension H/O aortic valve replacement Hyperlipidemia Asthma JOSE (obstructive sleep apnea) Atherosclerotic heart disease [place] coronary artery w/angina pectoris History of coronary artery stent placement Essential (primary) hypertension Fatigue H/O aortic valve replacement Hyperlipidemia Chief Complaint 6 M FU 5 m fu RECALL LETTER- COLONOSCOPY Reason for Visit Atherosclerotic hear t disease [place] coronary artery w/angina pectoris Dyspnea on exertion Palpitations Essential (primary) hypertension H/O aortic valve replacement Hyperlipidemia Asthma JOSE (obstructive sleep apnea) Personal history of colonic polyps Chief Complaint E-ORDER EORDER Annual/Physical Reason for Visit Atherosclerotic hear t disease [place] coronary artery w/angina pectoris Right knee DJD [...] July 312023 1:48pm Atherosclerotic heart diseas e [place] coronary artery w/angina pectoris August 31, 2024 [...] 2025 3:17 pm Atherosclerotic heart diseas e [place] coronary artery w/angina pectoris March 23, 2025 [...] 2025 3:17 pm Atherosclerotic heart diseas e [place] coronary artery w/angina pectoris March 23, 2025 2:25pm Essential (primary) hypertension March 232024 2:25pm H/O aortic valve replacement March 23, 2025 2:25pm Hyperlipidemia March 23, 2025 2:25 pm Asthmatic bronchitis April 29, 2025 11: 38am Atherosclerotic heart diseas e [place] coronary artery w/angina pectoris April 29, 2025 [...] 2025 3:17 pm Atherosclerotic heart diseas e [place] coronary artery w/angina pectoris March 23, 2025 2:25pm Essential (primary) hypertension March 232024 2:25pm H/O aortic valve replacement March 23, 2025 2:25pm Hyperlipidemia March 23, 2025 2:25 pm Asthmatic bronchitis April 29, 2025 11: 38am Atherosclerotic heart diseas e [place] coronary artery w/angina pectoris April 29, 2025 [...] section and content) DATE CREATED AUTHOR 12/17/2021 [facility] DATE CREATED AUTHOR AUTHOR'S JHONNY ATTOBIN 06/22/2025 [facility] Goals (unrecognized section and content) Goals [...] Provider, Referri ng Provider Active Paul Goodman RESIDENTIAL CARE OFFICER, RESIDENTIAL CARE OFFICER-C Attending Provider Active Team Status: Inactive Member [...] Primary Care Provider Active Rose Díaz NP, RESIDENTIAL CARE OFFICER-C Attending Provider, Referring P cheikh Active Team [...] 2024 End: August 31, 2024 Paul Goodman RESIDENTIAL CARE OFFICER, RESIDENTIAL CARE OFFICER-C Attending Provider Active S tart: August 31, 2024 End: August 31, 2024 Team Status: Inactive Member Role Status Dates Dr. Saqib Juárez MD Primary Care Provider Active Start: December 01, 2024 End: December 01, 2024 Dr. Saqib Juárez MD Referring Provider Active Start: December 01, 2024 End: December 01, 2024 Doendre Philip PA, PA Attending Provider Active Start: [...] 2025 End: March 16, 2025 Rosibel Suh RESIDENTIAL CARE OFFICER, RESIDENTIAL CARE OFFICER-C Attending Provider Active Start: March 16, 2025 [...] 2025 End: March 16, 2025 Rosibel Suh RESIDENTIAL CARE OFFICER, RESIDENTIAL CARE OFFICER-C Attending Provider Active Start: March 16, 2025 [...] End: March 16, 2025 Rosibel Suh NP, RESIDENTIAL CARE OFFICER-C Attending Provider Active Start: March 16, 2025 [...] End: March 16, 2025 Rosibel Suh NP, RESIDENTIAL CARE OFFICER-C Attending physician Active Start: March 16, 2025 [...] 2025 End: June 16, 2025 Rosibel Suh RESIDENTIAL CARE OFFICER, RESIDENTIAL CARE OFFICER-C Attending physician Active Start: June 16, 2025 End: June 16, 2025 Team Status: Inactive Member Role/Relationship Status Dates Dr. Saqib Juárez MD Primary care physician Active Start: June 21, 2025 End: June 21, 2025 Rosibel Suh RESIDENTIAL CARE OFFICER, RESIDENTIAL CARE OFFICER-C Attending physician Active Start: June 21, 2025 End: June 21, 2025 Rosibel Suh RESIDENTIAL CARE OFFICER, RESIDENTIAL CARE OFFICER-C Referring Provider Active Start: June 21, 2025 [...] BE BASED ON THE PRIMARY CLINICAL RECORDS. [facility]. provides no warranty or guarantee of the accuracy or completeness of information in this document.
[2025-07-03] MEDS: Heparin Injection (Vial) 5,000 UNIT/ML VIAL 4000 UNIT IV (03:23)
[2025-07-03 03:27] LABS: Prothrombin Time (Protime)PT. 12.5 SECONDS (11.7-14.9)
[2025-07-03 03:28] LABS: Partial Thromboplast Time 27.2 Seconds (24.1-36.2)
[2025-07-03] MEDS: HEPARIN/D5w 25,000 UNITS 25,000 UNITS/250 ML IV.SOLN. 9.6 UNITS CONT INF (03:28)
[2025-07-03 03:48] LABS: Magnesium 1.9 mg/dL (1.5-2.2)
--- NOTE | 2025-07-03 03:51 | ECHOL_ITS ---
Reason For Study Reason For Study: ACS Procedure This was a limited 2D transthoracic echocardiogram. Exam performed portable in patient room. Left Ventricle Normal LV size. The estimated ejection fraction is 65 %. Apical hypokinesis. Right Ventricle Normal RV size. Normal systolic function. Atria The left atrium is mildly enlarged. Normal right atrium. Mitral Valve There is no mitral valve stenosis. Trivial mitral valve insufficiency. Aortic Valve There is no aortic stenosis. Trivial aortic valve insufficiency. Stable appearing bioprosthetic aortic valve apparatus. MMode/2D Measurements & Calculations LVIDd: 4.0 cm IVSd: 1.2 cm LAV(MOD- bp): 43.4 ml LVIDs: 2.7 cm LVPWd: 1.2 cm FS: 32.6 % LAV(MOD- bp) Indexed: 23.3 ml/m2 LAV(MOD- sp2): 31.4 ml LAV(MOD- sp4): 59.5 ml LVAd ap4: 25.1 cm2 SV(MOD-sp4): 46.6 ml SV(sp4- el): 49.3 ml LVLd ap4: 8.4 cm SI(MOD-sp4): 25.0 ml/m2 EDV(MOD-sp4): 62.3 ml EDV(sp4-el): 63.6 ml LVAs ap4: 11.4 cm2 LVLs ap4: 7.8 cm ESV(MOD-sp4): 15.7 ml ESV(sp4-el): 14.2 ml EF(MOD-sp4): 74.8 % EF(sp4-el): 77.6 % LA A4 area: 22.3 cm2 RA A4 area: 13.4 cm2 ECHO/Echo, Limited Study Interpretation Summary The estimated ejection fraction is 65 %. Apical hypokinesis The left atrium is mildly enlarged. Trivial mitral valve insufficiency. Ordering Physician: Nicolasa Lee Referring Physician: Stacey Robledo M.D. Performed By: Naomi Gee RCS
[2025-07-03 04:14] LABS: Troponin T High Sens 4 HR 102 ng/L (<=14)
[2025-07-03] MEDS: Nitroglycerin (INPATIENT USE) 0.4 MG TAB.SUBL SL ×5 (04:26→18:32)
[2025-07-03] MEDS: 0.9% Normal Saline (1000mL) 1,000 ML 100 ML IV (04:29)
--- NOTE | 2025-07-03 04:39 | CPS ---
CPAP machine brought in room for patient use later tonight. Machine set to patients home PAP pressures of +12 with nasal pillows mask
[2025-07-03 07:16] LABS: Hematocrit 32.8 % (37-47); Hemoglobin 11.1 g/dL (12.0-15.0); Immature Granulocytes Count 0.030 X10^3/uL (0.0-0.0); Mean Corp Hgb Conc 33.8 g/dL (32-36); Mean Corpuscular Volume 89.6 fL (81-99); Mean Platelet Vol. 9.4 fl (6.2-12.0); NRBC Flagged by Analyzer 0 % (0-5); Platelet Count 295 K/mm3 (150-450); RBC Distribution Width CV 12.7 % (11.6-14.6); RBC Distribution Width SD 41.9 fl (35.1-43.9); Red Blood Count 3.66 M/mm3 (4.2-5.4); White Blood Count 8.9 K/mm3 (4.4-11.0)
[2025-07-03 07:39] LABS: AST(SGOT) 45 U/L (<=31); Alanine Aminotransfer ALT/SGPT 20 U/L (<=34); Albumin, Serum 4.0 g/dL (3.4-4.8); Alkaline Phosphatase 65 U/L (35-104); Anion Gap 14 (5-15); BUN 21 mg/dL (4-19); BUN/Creat Ratio 31.0 RATIO (10-20); Calcium,Total 9.2 mg/dL (7.6-11.0); Carbon Dioxide 22.1 mmol/L (21.0-32.0); Chloride 96 mmol/L (98-108); Estimated Creatinine Clearance 56.45 ml/min (50-250); Globulin 2.3 g/dL (2.2-4.2); Glucose 186 mg/dL (70-99); Potassium 3.8 mmol/L (3.3-5.1)
[2025-07-03 09:27] LABS: Partial Thromboplast Time 58.2 Seconds (24.1-36.2)
--- NOTE | 2025-07-03 09:32 | PN.HOSP_ITS ---
Hospitalist Note 79-year-old female history of JOSE, coronary artery disease status post PCI 2022, hypertension, asthma, valvular heart disease status post AVR who presented to [facility] ED 07/03/2025 with chest pain that started the night before at 11 PM while attempting to go to bed. The pain was discomfort/heaviness in the substernal region with radiation to bilateral upper extremities with nausea and emesis as well as dyspnea. Patient called EMS and got 3 baby aspirins and route to the hospital and was brought in for further evaluation. In ED initial troponin 19 with a repeat of 60 and subsequent of 102, EKG was sinus rhythm with first-degree AV block and no evidence of ischemia. Hospitalist contacted for admission for chest pain and concern for ACS. Patient admitted to PCU, started on heparin drip and cardiology consulted for consideration of cardiac cath. Limited echo ordered to assess for wall motion abnormalities. Patient's limited echo showed an EF of 65% but apical hypokinesis which was new from 03/30/2025. Discussed with cardiology, likely cardiac cath on Saturday as long as patient remains stable. Evaluated patient at bedside, still having some tight feeling but significantly better than it was on presentation and no further shortness of breath, no nausea. Overall feeling better. Will continue heparin drip, beta-tesfaye, aspirin, statin.
[2025-07-03] MEDS: Aspirin E.C. 81 MG Tablet PO (10:11)
--- NOTE | 2025-07-03 13:34 | CASEMGMT ---
DOMINIC CONDON in to discuss KAUFMAN form with patient. DOMINIC CONDON explained KAUFMAN form, patient voiced understanding. Pt signed form and filed in chart. Pt provided with a copy of signed KAUFMAN form. Patient had no further questions or concerns at this time. Pt states she lives with her grandson. She states she is indep in ADLs and has DME if she needs such as a walker. Pt does not currently ambulate with a device. Pt denies any homegoing needs at this time.
--- NOTE | 2025-07-03 16:02 | CON.PCM.CA_ITS ---
Assessment & Plan Assessment/Plan (1) ACS (acute coronary syndrome): PLAN: Non-STEMI. Continue present management. Cath on Saturday. Patient understands the risks and benefits and wishes to proceed with coronary angiography on Saturday. HPI Consult Data Date of Consult: 07/03/25 HPI Narrative Reason for Consultation: Chest pain, elevated troponin HPI Narrative: KARYN MULLER, is a 79 F who presents [chest pain radiating down both arms. She has]cardiovascular history of aortic valve replacement with a bioprosthetic #21 trifecta valve at [facility] in March [address] Sutherland. Prior to her valve replacement her cardiac catheterization in February 2017 demonstrated a 50% proximal LAD stenosis, and a 30% circumflex artery stenosis. Her echocardiogram in April 2020 demonstrating an ejection fraction of 65% stage I diastolic dysfunction and a stable aortic valve with a peak mean gradient of 17/10 mmHg. She underwent a stress test on 03/31/2021 that was negative for ischemia. She was evaluated in January 2022 with exertional shortness of breath that was felt to be an anginal equivalent. She proceeded with a heart catheterization 03/02/2022 that showed significant mid LAD and diagonal disease and mild disease noted in the circumflex artery and right coronary artery. She proceeded with drug-eluting stent to proximal LAD/diagonal 2 bifurcation and balloon angioplasty to ostial second diagonal. Echo done today reveals apical hypokinesis that appears to be new. Patient's chest pain has improved significantly since arrival to the hospital. She is on heparin drip. 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 Nonrheumatic aortic (valve) stenosis Essential (primary) hypertension COVID-19 (08/31/20) Psoriatic arthritis Hyperlipidemia Home Medications ?Medication ?Instructions ?Recorded ?Last Taken ?Type cyanocobalamin (vitamin B-12) 1,000 mcg PO DAILY SUPPL EMENT 02/06/17 05/01/17 History 1,000 mcg tablet aspirin 81 mg tablet,delayed 81 mg PO QDAY [facility]02[facility]17 05/06/23 History release (Adult Low Dose Aspirin) calcium 600 mg (as carbonate)-vit 1 tab PO QDAY vitami n 10/02/17 Unknown History D3 10 mcg (400 unit)-minerals tablet multivitamin 1 tab PO DAILY vitamin 02/02 Unknown History acetaminophen 650 mg 1,300 mg PO Q12H arthritis 0 02/22/22 Unknown History tablet,extended release albuterol sulfate 90 mcg/actuation 2 puff inhalation Q 4H PRN 05/17/22 Unknown Rx aerosol inhaler shortness of breath or wheez ing #8.5 grams flaxseed oil 1,000 mg capsule 1,000 mg PO DAILY Unknown History ferrous sulfate 325 mg (65 mg 325 mg PO QDAY 08/31/24 Unknown History iron) tablet pravastatin 40 mg tablet See Rx Instructions .Route 0 11/05/24 Unknown Rx .COMPLEX #90 tabs ascorbic acid (vitamin C) 1,000 mg 1 g PO QDAY vitamin 12/30/24 Unknown History tablet metoprolol succinate 50 mg 50 mg PO QHS BLOOD PRESSURE #90 02/23/25 Unknown Rx tablet,extended release 24 hr tabs fluticasone furoate 200 1 inh inhalation DAILY #3 ea 03/16/25 Unknown Rx mcg-vilanterol 25 mcg/dose inhalation powder (Breo Ellipta) losartan 50 mg-hydrochlorothiazide 1 tab PO BID #180 t abs 03/23/25 Unknown Rx 12.5 mg tablet trazodone 100 mg tablet 50 mg (1/2 x 100 mg) PO QHS PRN 05/07/25 Unknown Rx insomnia #90 tabs Allergy/AdvReac Type Severity Reaction Status Date / Time meloxicam AdvReac Nausea Verified 07/02/25 23:29 methotrexate AdvReac Nausea Verified 07/02/25 23:29 NSAIDS (Non-Steroidal AdvReac Nausea Verified 07/02/25 23:29 Anti-Inflamma Sulfa (Sulfonamide AdvReac Nausea Verified 07/02/25 23:29 Antibiotics) Family History (Updated 07/03/25 @ 03:[address] Nicolasa Lee MD) Brother Heart disease AV replaced and CABG X 1 CAD (coronary artery disease) CABG x 1 w/ AVR Mother Heart disease Valvular heart disease Heart failure Father Cancer COPD (chronic obstructive pulmonary disease) Surgical History Hx of total knee replacement (~10/13/24) History of cardiac catheterization History of colonoscopy History of coronary artery stent placement (03/02/22) History of left heart catheterization (03/14/17) History of shoulder surgery History of partial colectomy (~2011) H/O aortic valve replacement (04/08/17) Social History household members: none Smoking Status: Former smoker how long ago did patient quit smokin + years ago alcohol intake: current alcohol intake frequency: 0-2 drinks per day Alcohol type: hard liquor substance use type: does not use caffeine: Yes Type: coffee Number of servings: 2 Physical Exam Const alert and oriented x3 HEENT normocephalic Eyes no scleral icterus Resp normal respiratory effort Charges/Coding Visit Charges Inpatient E&M: 85371 Init Hosp L1 Objective Data Vital Signs: Vital Signs Temp Pulse Resp BP Pulse Ox O2 Del Method 98.3 F 69 18 169/66 H 96 Room Air 07/03/25 10:00 07/03/25 10:00 07/03/25 10:00 07/03/25 10:00 07/03/25 10:00 07/03/25 14:00 Oxygen Delivery Method Room Air Weight: 184 lb 1.376 oz Body Mass Index (BMI) 32.5 Intake & Output: Intake and Output for Last 24 Hours 07/01/25 07/02/25 07/03/25 23:59 23:59 23:59 Intake Total 1400 / 1400 Balance 1400 / 1400 Lab / Micro Data 07/03/25 06:15 07/03/25 06:15 Labs: Laboratory Results - last 24 hr 07/02/25 23:42: WBC 7.5, RBC 3.80 L, Hgb 11.3 L, Hct 34.6 L, MCV 91.1, MCH 29.7, MCHC 32.7, RDW Std Deviation 42.9, RDW Coeff of Lisa 13.0, Plt Count 314, MPV 9.6, Immature Gran % (Auto) 0.400, Neut % (Auto) 59.9, Lymph % (Auto) 23.4, [place] % (Auto) 11.6 H, Eos % (Auto) 4.3, Baso % (Auto) 0.4, Absolute Neuts (auto) 4.5, Absolute Lymphs (auto) 1.75, Nucleated RBC % 0, PT 12.5, INR 0.9, APTT 27.2, Sodium 134, Potassium 3.9, Chloride 95 L, Carbon Dioxide 25.8, Anion Gap 13, BUN 24 H, Creatinine 0.72, Estim Creat Clear Calc 55.10, Est GFR (MDRD) Non-Af 84, B UN/Creatinine Ratio 33.6 H, Glucose 210 H, Calcium 9.7, Troponin T High Sens 19 H 07/03/25 01:52: Magnesium 1.9, Troponin T Hi Sens 2 Hr 60 H* 07/03/25 03:36: Troponin T Hi Sens 4Hr 102 H* 07/03/25 06:15: WBC 8.9, RBC 3.66 L, Hgb 11.1 L, Hct 32.8 L, MCV 89.6, MCH 30.3, MCHC 33.8, RDW Std Deviation 41.9, RDW Coeff of Lisa 12.7, Plt Count 295, MPV 9.4, Immature Gran % (Auto) 0.300, Neut % (Auto) 71.2 H, Lymph % (Auto) 15.2 L, [place] % (Auto) 9.5, Eos % (Auto) 3.5, Baso % (Auto) 0.3, Absolute Neuts (auto) 6.4, Absolute Lymphs (auto) 1.36, Nucleated RBC % 0, Sodium 132 L, Potassium 3.8, Chloride 96 L, Carbon Dioxide 22.1, Anion Gap 14, BUN 21 H, Creatinine 0.66 L, Estim Creat Clear Calc 56.45, Est GFR (MDRD) Non-Af 88, BUN/Creatinine Ratio 31.0 H, Glucose 186 H, Hemoglobin A1c 7.2 H, Calcium 9.2, Total Bilirubin 0.27, AST 45 H, ALT 20, Alkaline Phosphatase 65, Total Protein 6.3, Albumin 4.0, Globulin 2.3, Albumin/Globulin Ratio 1.7 07/03/25 09:00: APTT 58.2 H 07/03/25 11:54: POC Glucose 149 H Rhythm Strip Rhythm Strip: Sinus Rhythm Rate: 63 Ectopy: None Cardiology Labs/Tests 07/02/25 23:42: WBC 7.5, RBC 3.80 L, Hgb 11.3 L, Hct 34.6 L, MCV 91.1, MCH 29.7, MCHC 32.7, Plt Count 314, MPV 9.6, Immature Gran % (Auto) 0.400, Neut % (Auto) 59.9, Lymph % (Auto) 23.4, [place] % (Auto) 11.6 H, Eos % (Auto) 4.3, Baso % (Auto) 0.4, Absolute Neuts (auto) 4.5, Nucleated RBC % 0, PT 12.5, INR 0.9, APTT 27.2, Sodium 134, Potassium 3.9, Chloride 95 L, Carbon Dioxide 25.8, Anion Gap 13, BUN 24 H, Creatinine 0.72, Est GFR (MDRD) Non-Af 84, BUN/Creatinine Ratio 33.6 H, G lucose 210 H, Calcium 9.7 07/03/25 01:52: Magnesium 1.9 07/03/25 06:15: WBC 8.9, RBC 3.66 L, Hgb 11.1 L, Hct 32.8 L, MCV 89.6, MCH 30.3, MCHC 33.8, Plt Count 295, MPV 9.4, Immature Gran % (Auto) 0.300, Neut % (Auto) 71.2 H, Lymph % (Auto) 15.2 L, [place] % (Auto) 9.5, Eos % (Auto) 3.5, Baso % (Auto) 0.3, Absolute Neuts (auto) 6.4, Nucleated RBC % 0, Sodium 132 L, Potassium 3.8, Chloride 96 L, Carbon Dioxide 22.1, Anion Gap 14, BUN 21 H, C reatinine 0.66 L, Est GFR (MDRD) Non-Af 88, BUN/Creatinine Ratio 31.0 H, Glucose 186 H, Hemoglobin A1c 7.2 H, Calcium 9.2, Total Bilirubin 0.27 07/03/25 09:00: APTT 58.2 H Rhythm: EKG: ECHO: Stress Test: Cardiac Cath: PCI: CT Surgery: Holter monitor: EPS: PPM: CXR: Chest CT Scan: Radiography Diagnostic Testing: Radiology Impression Chest X-Ray 07/03/25 00:28 IMPRESSION: No Acute Findings. Reading Location: [facility] Echocardiogram 07/03/25 03:51 Interpretation Summary The estimated ejection fraction is 65 %. Apical hypokinesis The left atrium is mildly enlarged. Trivial mitral valve insufficiency. Ordering Physician: Nicolasa Lee Referring Physician: Stacey Robledo M.D. Performed By: Naomi Gee RCS [place] Risk Score for UA/STEMI Assesmment (YES = 1) Risk Stratification Applicable: No
[2025-07-03 16:42] LABS: Partial Thromboplast Time 46.3 Seconds (24.1-36.2)
--- NOTE | 2025-07-03 18:25 | EKG12_ITS ---
Test Reason : CP Blood Pressure : */* mmHG Vent. Rate : 85 BPM Atrial Rate : 85 BPM P-R Int : 184 ms QRS Dur : 92 ms QT Int : 388 ms P-R-T Axes : 46 11 56 degrees QTcB Int : 461 ms Normal sinus rhythm Anteroseptal infarct , age undetermined Abnormal ECG When compared with ECG of 03-Jul-2025 04:07, MANUAL COMPARISON REQUIRED DATA IS UNCONFIRMED Confirmed by ALEXANDRA DOOLEY, ANI ([id number]), clinical editor ATIF VIDAL ([id number]) on 07/05/2025 8:43:45 AM Referred By: FERNANDA Confirmed By: ANI MORRIS MD
--- NOTE | 2025-07-03 20:00 | CPS ---
Pt has her own CPAP machine from home in room to use now.
[2025-07-03 20:47] LABS: Troponin T High Sensitivity 658 ng/L (<=14)
[2025-07-03] MEDS: Metoprolol(XL)Succ 50 MG Tablet PO (21:27)
[2025-07-03 22:53] LABS: Troponin T High Sens 2 HR 629 ng/L (<=14)
[2025-07-03 23:32] LABS: Partial Thromboplast Time 55.9 Seconds (24.1-36.2)
[2025-07-03 23:46] LABS: Troponin T High Sens 4 HR 594 ng/L (<=14)
[2025-07-04] VITALS (7 sets, daily range): BP systolic 120–171; BP diastolic 60–70; PULSE 68–86; RESP 16–18; TEMP 36.2–37.2; O2SAT 94–96; BMI 32.8
[2025-07-04] MEDS: HEPARIN/D5w 25,000 UNITS 25,000 UNITS/250 ML IV.SOLN. 10.3 UNITS CONT INF (04:36)
[2025-07-04 05:23] LABS: Hematocrit 35.0 % (37-47); Hemoglobin 11.6 g/dL (12.0-15.0); Immature Granulocytes Count 0.050 X10^3/uL (0.0-0.0); Mean Corp Hgb Conc 33.1 g/dL (32-36); Mean Corpuscular Volume 89.5 fL (81-99); Mean Platelet Vol. 8.9 fl (6.2-12.0); NRBC Flagged by Analyzer 0 % (0-5); Platelet Count 313 K/mm3 (150-450); RBC Distribution Width CV 12.9 % (11.6-14.6); RBC Distribution Width SD 42.2 fl (35.1-43.9); Red Blood Count 3.91 M/mm3 (4.2-5.4); White Blood Count 13.8 K/mm3 (4.4-11.0)
[2025-07-04 06:05] LABS: Anion Gap 14 (5-15); BUN 15 mg/dL (4-19); BUN/Creat Ratio 26.4 RATIO (10-20); Calcium,Total 9.3 mg/dL (7.6-11.0); Carbon Dioxide 22.7 mmol/L (21.0-32.0); Chloride 96 mmol/L (98-108); Cholesterol 157 mg/dL (<=200); Estimated Creatinine Clearance 56.70 ml/min (50-250); Glucose 209 mg/dL (70-99); Low Density Lipoprotein Calc. 67 mg/dL; Potassium 3.7 mmol/L (3.3-5.1); Triglycerides 125 mg/dL; Very Low Density Lipoprotein 25 mg/dL (5-40); cholesterol:hdl ratio screen 2.40
[2025-07-04 06:15] LABS: Partial Thromboplast Time 54.8 Seconds (24.1-36.2)
[2025-07-04] MEDS: Aspirin E.C. 81 MG Tablet PO (08:26)
--- NOTE | 2025-07-04 08:58 | PN.HOSP_ITS ---
Reason for Visit Chief Complaint: Chest pain, dyspnea, N/V. Subjective Subjective Feeling much better today, had episode of chest pain yesterday after blood pressure went from 180 systolic down to 130s/40s with hydralazine but ultimately resolved and his chest pain-free today and feeling much better, no shortness of breath or nausea at this time Objective Data Objective Data Vital Signs: Vital Signs Temp Pulse Resp BP Pulse Ox O2 Del Method 97.2 F L 70 18 171/70 H 96 Room Air 07/04/25 08:25 07/04/25 08:25 07/04/25 08:25 07/04/25 08:25 07/04/25 08:25 07/04/25 08:25 Oxygen Delivery Method Room Air Weight: 84.2 kg Body Mass Index (BMI) 32.8 Intake & Output: Intake and Output for Last 24 Hours 07/02/25 07/03/25 07/04/25 23:59 23:59 23:59 Intake Total 1928.8 / 2048.8 259.39 / 259.39 Balance 1928.8 / 2048.8 259.39 / 259.39 Lab / Micro Data 07/04/25 05:07 07/04/25 05:07 Labs: Laboratory Results - last 24 hr 07/03/25 09:00: APTT 58.2 H 07/03/25 11:54: POC Glucose 149 H 07/03/25 16:00: APTT 46.3 H 07/03/25 16:31: POC Glucose 170 H 07/03/25 19:15: Troponin T High Sens 658 H* D 07/03/25 21:26: POC Glucose 164 H 07/03/25 21:35: Troponin T Hi Sens 2 Hr 629 H* 07/03/25 23:06: APTT 55.9 H, Troponin T Hi Sens 4Hr 594 H* 07/04/25 05:07: WBC 13.8 H, RBC 3.91 L, Hgb 11.6 L, Hct 35.0 L, MCV 89.5, MCH 29.7, MCHC 33.1, RDW Std Deviation 42.2, RDW Coeff of Lisa 12.9, Plt Count 313, MPV 8.9, Immature Gran % (Auto) 0.400, Neut % (Auto) 81.3 H, Lymph % (Auto) 8.5 L, [place] % (Auto) 8.6, Eos % (Auto) 1.0, Baso % (Auto) 0.2, Absolute Neuts (auto) 11.2 H, Absolute Lymphs (auto) 1.17, Nucleated RBC % 0, APTT 54.8 H, Sodium 133, Potassium 3.7, Chloride 96 L, Carbon Dioxide 22.7, Anion Gap 14, BUN 15, C reatinine 0.57 L, Estim Creat Clear Calc 56.70, Est GFR (MDRD) Non-Af 91, B UN/Creatinine Ratio 26.4 H, Glucose 209 H, Calcium 9.3, Triglycerides 125, Cholesterol 157, LDL Cholesterol, Calc 67, VLDL Cholesterol 25, HDL Cholesterol 65, Cholesterol/HDL Ratio 2.40 07/04/25 06:23: POC Glucose 206 H Radiography Diagnostic Testing: Radiology Impression Echocardiogram 07/03/25 03:51 Interpretation Summary The estimated ejection fraction is 65 %. Apical hypokinesis The left atrium is mildly enlarged. Trivial mitral valve insufficiency. Ordering Physician: Nicolasa Lee Referring Physician: Stacey Robledo M.D. Performed By: Naomi Gee RCS Rhythm Strip Rhythm Strip: Sinus Rhythm Rate: 63 Ectopy: None Physical Exam Narrative General: Alert, oriented, no apparent distress HEENT: Atraumatic, normocephalic Eyes: Anicteric, normal conjunctiva, extraocular movements grossly intact Neck: Supple Respiratory: Clear to auscultation bilaterally, normal respiratory effort Cardiovascular: Regular rate and rhythm GI: Soft, nontender, nondistended Extremities: No significant pitting peripheral edema Musculoskeletal: Moving all extremities Neuro: No overt focal neurological deficits Skin: No rashes appreciated Psych: Cooperative Assessment & Plan Assessment/Plan (1) ACS (acute coronary syndrome): PLAN: Plan #NSTEMI - Suspect type I - Patient presented with chest pain initial troponin 19 that increased to 60 and subsequently 102 - She was placed on heparin drip, aspirin, statin, and home beta-tesfaye continued and cardiology consulted - Echo revealed new wall motion abnormalities that were not present 3 months ago - Plan is for heart cath tomorrow, patient made n.p.o. - Did have episode of chest pain yesterday and first troponin 658, repeat 629, third 594. Initial troponin is not trended to their peak so it is unclear if they were still on their way down or if there was another spike - Continue heparin drip and supportive care #Type 2 diabetes mellitus -Glucose checks and sliding scale insulin - Patient not a known diabetic however A1c 7.2 - Would likely benefit from metformin on discharge and following with primary care physician for additional titration management #Hypertension - Patient with quite variable blood pressures, she is on metoprolol, losartan, hydrochlorothiazide - Presently has hydralazine as needed - Will increase metoprolol to succinate, there is room to adjust both losartan and hydrochlorothiazide moving forward pending pressures # History of coronary artery disease with stenting - Management as above #DVT ppx: On heparin drip Cammy Estes MD Time spent in the patient's overall evaluation, decision-making process, review of diagnostic data, adjustment of management, discussion with other providers, nursing and ancillary staff involved in patient's care documentation, 38 Minutes Charges/Coding Visit Charges Inpatient E&M: 01533 Subs Hosp L2
[2025-07-04 12:42] LABS: Partial Thromboplast Time 71.7 Seconds (24.1-36.2)
--- NOTE | 2025-07-04 16:13 | PN.CARD_ITS ---
Subjective Subjective Patient had chest pain yesterday that resolved after nitroglycerin was administered. She has not had any further chest pain. She has been diagnosed with non-STEMI and is awaiting coronary angiography tomorrow. Objective Data Vital Signs: Vital Signs Temp Pulse Resp BP Pulse Ox O2 Del Method 97.2 F L 70 18 171/70 H 96 Room Air 07/04/25 08:25 07/04/25 08:25 07/04/25 08:25 07/04/25 08:25 07/04/25 08:25 07/04/25 14:00 Oxygen Delivery Method Room Air Weight: 185 lb 10.067 oz Body Mass Index (BMI) 32.8 Intake & Output: Intake and Output for Last 24 Hours 07/02/25 07/03/25 07/04/25 23:59 23:59 23:59 Intake Total 1928.8 / 2048.8 736.80 / 736.80 Balance 1928.8 / 2048.8 736.80 / 736.80 Lab / Micro Data 07/04/25 05:07 07/04/25 05:07 Labs: Laboratory Results - last 24 hr 07/03/25 16:00: APTT 46.3 H 07/03/25 16:31: POC Glucose 170 H 07/03/25 19:15: Troponin T High Sens 658 H* D 07/03/25 21:26: POC Glucose 164 H 07/03/25 21:35: Troponin T Hi Sens 2 Hr 629 H* 07/03/25 23:06: APTT 55.9 H, Troponin T Hi Sens 4Hr 594 H* 07/04/25 05:07: WBC 13.8 H, RBC 3.91 L, Hgb 11.6 L, Hct 35.0 L, MCV 89.5, MCH 29.7, MCHC 33.1, RDW Std Deviation 42.2, RDW Coeff of Lisa 12.9, Plt Count 313, MPV 8.9, Immature Gran % (Auto) 0.400, Neut % (Auto) 81.3 H, Lymph % (Auto) 8.5 L, [place] % (Auto) 8.6, Eos % (Auto) 1.0, Baso % (Auto) 0.2, Absolute Neuts (auto) 11.2 H, Absolute Lymphs (auto) 1.17, Nucleated RBC % 0, APTT 54.8 H, Sodium 133, Potassium 3.7, Chloride 96 L, Carbon Dioxide 22.7, Anion Gap 14, BUN 15, C reatinine 0.57 L, Estim Creat Clear Calc 56.70, Est GFR (MDRD) Non-Af 91, B UN/Creatinine Ratio 26.4 H, Glucose 209 H, Calcium 9.3, Triglycerides 125, Cholesterol 157, LDL Cholesterol, Calc 67, VLDL Cholesterol 25, HDL Cholesterol 65, Cholesterol/HDL Ratio 2.40 07/04/25 06:23: POC Glucose 206 H 07/04/25 11:36: POC Glucose 193 H 07/04/25 12:25: APTT 71.7 H Rhythm Strip Rhythm Strip: Sinus Rhythm Rate: 63 Ectopy: None Cardiology Labs/Tests 07/03/25 16:00: APTT 46.3 H 07/03/25 23:06: APTT 55.9 H 07/04/25 05:07: WBC 13.8 H, RBC 3.91 L, Hgb 11.6 L, Hct 35.0 L, MCV 89.5, MCH 29.7, MCHC 33.1, Plt Count 313, MPV 8.9, Immature Gran % (Auto) 0.400, Neut % (Auto) 81.3 H, Lymph % (Auto) 8.5 L, [place] % (Auto) 8.6, Eos % (Auto) 1.0, Baso % (Auto) 0.2, Absolute Neuts (auto) 11.2 H, Nucleated RBC % 0, APTT 54.8 H, Sodium 133, Potassium 3.7, Chloride 96 L, Carbon Dioxide 22.7, Anion Gap 14, BUN 15, C reatinine 0.57 L, Est GFR (MDRD) Non-Af 91, BUN/Creatinine Ratio 26.4 H, Glucose 209 H, Calcium 9.3, Triglycerides 125, Cholesterol 157, VLDL Cholesterol 25, HDL Cholesterol 65, Cholesterol/HDL Ratio 2.40 07/04/25 12:25: APTT 71.7 H Rhythm: EKG: ECHO: Stress Test: Cardiac Cath: PCI: CT Surgery: Holter monitor: EPS: PPM: CXR: Chest CT Scan: Physical Exam Const alert and oriented x3 HEENT normocephalic Eyes no scleral icterus Resp normal respiratory effort Assessment & Plan Assessment/Plan (1) ACS (acute coronary syndrome): PLAN: Non-STEMI. Continue present management. Cath on Saturday. Patient understands the risks and benefits and wishes to proceed with coronary angiography on Saturday. Charges/Coding Visit Charges Inpatient E&M: 08890 Subs Hosp L1
[2025-07-04 19:48] LABS: Partial Thromboplast Time 60.2 Seconds (24.1-36.2)
[2025-07-04] MEDS: Metoprolol(XL)Succ 25 MG Tablet 75 MG PO (21:15)
[2025-07-05] VITALS (10 sets, daily range): BP systolic 106–143; BP diastolic 45–73; PULSE 67–77; RESP 16–18; TEMP 36.7–36.8; O2SAT 93–97; BMI 33.0
[2025-07-05 01:41] LABS: Partial Thromboplast Time 82.7 Seconds (24.1-36.2)
--- NOTE | 2025-07-05 02:15 | CPS ---
Patient wearing home CPAP
--- NOTE | 2025-07-05 05:55 | EKG12_ITS ---
Test Reason : PRE-OP Blood Pressure : */* mmHG Vent. Rate : 65 BPM Atrial Rate : 65 BPM P-R Int : 192 ms QRS Dur : 90 ms QT Int : 466 ms P-R-T Axes : 28 31 62 degrees QTcB Int : 484 ms Normal sinus rhythm RSR' or QR pattern in V1 suggests right ventricular conduction delay Septal infarct , age undetermined T wave abnormality, consider anterolateral ischemia Abnormal ECG When compared with ECG of 03-Jul-2025 18:30, MANUAL COMPARISON REQUIRED DATA IS UNCONFIRMED Confirmed by ALEXANDRA DOOLEY, ANI ([id number]), staff editor ATIF VIDAL ([id number]) on 07/05/2025 8:42:48 AM Referred By: Confirmed By: ANI MORRIS MD
[2025-07-05 05:56] LABS: Hematocrit 33.2 % (37-47); Hemoglobin 11.0 g/dL (12.0-15.0); Mean Corp Hgb Conc 33.1 g/dL (32-36); Mean Corpuscular Volume 90.0 fL (81-99); Mean Platelet Vol. 9.3 fl (6.2-12.0); Platelet Count 287 K/mm3 (150-450); RBC Distribution Width CV 12.8 % (11.6-14.6); RBC Distribution Width SD 42.5 fl (35.1-43.9); Red Blood Count 3.69 M/mm3 (4.2-5.4); White Blood Count 10.8 K/mm3 (4.4-11.0)
[2025-07-05 06:17] LABS: Anion Gap 12 (5-15); BUN 14 mg/dL (4-19); BUN/Creat Ratio 24.0 RATIO (10-20); Calcium,Total 8.9 mg/dL (7.6-11.0); Carbon Dioxide 23.4 mmol/L (21.0-32.0); Chloride 95 mmol/L (98-108); Estimated Creatinine Clearance 56.84 ml/min (50-250); Glucose 181 mg/dL (70-99); Potassium 3.6 mmol/L (3.3-5.1)
[2025-07-05] MEDS: Aspirin E.C. 81 MG Tablet PO (06:40)
--- NOTE | 2025-07-05 09:15 | CL.D_ITS ---
Patient Name: KARYN MULLER Study Date: 07/05/2025 Performing: Yong Mora MD Ht: 63 inches 160.02 cm : 1945 Wt: 186.51 lbs 84.6 kg Age: 79 Gender: female BSA: 1.88 PROCEDURE(S) PERFORMED [id number]-([id number])[facility]/COR CLINICAL PROFILE AND INDICATIONS Indications: New Onset Angina <= 2 months Heart Failure: None Stress/Imaging Stress/Image Study Performed: No CAD Presentations: Non-STEMI. Symptom onset Date/Time: 07/03/25 Time Not Available CONCLUSIONS Totally occluded distal LAD not amenable to angioplasty. RECOMMENDATIONS Medical therapy DESCRIPTION OF PROCEDURE The patient arrived to the procedure lab. The risks and benefits of the procedure as well as a full description of our services here and current unavailability of surgical backup were fully explained to the patient and/or their significant other prior to the catheterization. The Timeout was completed, verifying the correct patient and procedure. The patient's procedural site was prepped and draped in the usual fashion. Local anesthetic was given subcutaneously to right radial region with Lidocaine 2%. Using a modified Seldinger technique, arterial access was obtained via the right radial artery, a 6Fr sheath was inserted. Left Coronary Artery selective angiography was performed in multiple views using a 5 Fr. 4.0 [place] catheter. Right Coronary Artery selective angiography was then performed in multiple views using a 5 Fr. 4.0 [place] catheter.The arterial sheath was pulled and a TR Band was applied for hemostasis CORONARY ANGIOGRAPHY DOMINANCE: Right Dominant LEFT HEART ASSESSMENT Left Ventricular Ejection Fraction: by Echo 45 % Apical Hypokinesis - Severe Depressed Left Ventricular systolic function LEFT MAIN: No significant disease noted LEFT ANTERIOR DESCENDING ARTERY: Mild luminal irregularities DISTAL LAD: is occluded CIRCUMFLEX ARTERY: Mild luminal irregularities RIGHT CORONARY ARTERY: Mild luminal irregularities less than 30% VALVE FINDINGS: Stable bioprosthetic valve COMPLICATIONS No Complications PROCEDURE MEDICATIONS Fentanyl 50 mcg IV Versed 1 mg IV Oxygen: 2 L/min via nasal cannula Heparin given IA 07/05/2025 08:40:26 Verapamil 2.5mg, 3000 units of Heparin given IA 07/05/2025 08:40:26 SUMMARY OF HEMODYNAMIC DATA Time AIR REST ECG 08:29:05 AO 126/52 (79) SA 08:52:34 Signed By Yong Mora MD On 07/05/2025 09:14:45 Yong Mora MD
--- NOTE | 2025-07-05 09:43 | PN.CARD_ITS ---
Subjective Subjective Patient seen and evaluated. Appears to be doing well this morning. Underwent cardiac catheterization. Objective Data Vital Signs: Vital Signs Temp Pulse Resp BP Pulse Ox O2 Del Method 98.1 F 67 17 106/54 L 95 Room Air 07/05/25 09:37 07/05/25 09:37 07/05/25 09:37 07/05/25 09:37 07/05/25 09:37 07/05/25 09:37 Oxygen Delivery Method Room Air Weight: 186 lb 8.177 oz Body Mass Index (BMI) 33.0 Intake & Output: Intake and Output for Last 24 Hours 07/03/25 07/04/25 07/05/25 23:59 23:59 23:59 Intake Total 1928.8 / 2048.8 1136.80 / 1256.80 273.88 / 273.88 Balance 1928.8 / 2048.8 1136.80 / 1256.80 273.88 / 273.88 Lab / Micro Data 07/05/25 05:08 07/05/25 05:08 Labs: Laboratory Results - last 24 hr 07/04/25 11:36: POC Glucose 193 H 07/04/25 12:25: APTT 71.7 H 07/04/25 16:27: POC Glucose 154 H 07/04/25 19:17: APTT 60.2 H 07/04/25 21:11: POC Glucose 194 H 07/05/25 01:20: APTT 82.7 H 07/05/25 05:08: WBC 10.8, RBC 3.69 L, Hgb 11.0 L, Hct 33.2 L, MCV 90.0, MCH 29.8, MCHC 33.1, RDW Std Deviation 42.5, RDW Coeff of Lisa 12.8, Plt Count 287, MPV 9.3, Sodium 131 L, Potassium 3.6, Chloride 95 L, Carbon Dioxide 23.4, Anion Gap 12, BUN 14, Creatinine 0.60 L, Estim Creat Clear Calc 56.84, Est GFR (MDRD) Non-Af 90, BUN/Creatinine Ratio 24.0 H, Glucose 181 H, Calcium 8.9 07/05/25 06:29: POC Glucose 182 H Rhythm Strip Rhythm Strip: Sinus Rhythm Rate: 63 Ectopy: None Cardiology Labs/Tests 07/04/25 12:25: APTT 71.7 H 07/04/25 19:17: APTT 60.2 H 07/05/25 01:20: APTT 82.7 H 07/05/25 05:08: WBC 10.8, RBC 3.69 L, Hgb 11.0 L, Hct 33.2 L, MCV 90.0, MCH 29.8, MCHC 33.1, Plt Count 287, MPV 9.3, Sodium 131 L, Potassium 3.6, Chloride 95 L, Carbon Dioxide 23.4, Anion Gap 12, BUN 14, Creatinine 0.60 L, Est GFR (MDRD) Non-Af 90, BUN/Creatinine Ratio 24.0 H, Glucose 181 H, Calcium 8.9 Rhythm: EKG: ECHO: Stress Test: Cardiac Cath: PCI: CT Surgery: Holter monitor: EPS: PPM: CXR: Chest CT Scan: Physical Exam Const alert, oriented x3 and no apparent distress General Appearance: cooperative HEENT hearing grossly normal bilaterally Head and Scalp: atraumatic Eyes EOMs intact bilaterally Neck General: normal visual inspection Chest inspection of chest normal and palpation of chest normal Resp normal respiratory effort Auscultation: clear to auscultation bilaterally Cardio regular rate, regular rhythm, S1 normal heart sound and S2 normal heart sound Jugular Venous Distention: JVD GI normal to inspection, nondistended, normoactive bowel sounds Extremity normal capillary refill and no pedal edema Peripheral Pulses: Yes pulses 2+ throughout and femoral pulses present Skin no rashes or lesions noted Neuro oriented x3 and CN's II-XII intact bilaterally Psych Appearance: grossly normal and appropriate Assessment & Plan Assessment/Plan (1) ACS (acute coronary syndrome): PLAN: Patient presented with an acute coronary syndrome underwent cardiac catheterization which demonstrated a totally occluded distal left anterior descending artery. This vessel appears to be too small to perform any stenting procedure. Would recommend aspirin, high intensity statin, clopidogrel for 3 months. (2) History of coronary artery stent placement: PLAN: Patient is status post coronary arteries stenting procedure in the proximal LAD which appears to be patent. (3) H/O aortic valve replacement: PLAN: Patient is status post bioprosthetic aortic valve. It appears that this is stable with the recent echocardiographic evaluation in March of this year. (4) Essential (primary) hypertension: PLAN: Her blood pressure appears to be somewhat elevated. I would recommend that we increase the hydrochlorothiazide to 25 mg a day. Continue other medications. (5) Hyperlipidemia: QUALIFIERS: Hyperlipidemia type: pure hypercholesterolemia Q ualified Code(s): E78.00 - Pure hypercholesterolemia, unspecified; E78.0 - Pure hypercholesterolemia PLAN: Hyperlipidemia. Continue aggressive medical therapy.
--- NOTE | 2025-07-05 11:53 | DCINST_ITS ---
Discharge Instructions DC O2, CPAP, BIPAP needs Home O2 Discharge instructions: No Dressing / Incision Discharge Activity: - (See post-cath instructions) Follow Up Care Test Results: Test results from this visit will be discussed in further detail at your follow- up appointment, if applicable. Discharge Plan Admission Admit Date/Time: 07/03/25 16:20 Primary Reason for Your Visit: Chest pain Attending Provider: Cammy Estes Primary Care Provider: Stacey Robledo Consulting Providers: Alva Jean; Nicolasa Lee Instructions Patient Instructions: Cardiac Cath Transradial Additional Instructions / Restrictions: DISCHARGE INSTRUCTIONS PLEASE READ *Please take this with you to your next doctors appointment* -You will be discharged with instructions for a 14-day heart monitor to evaluate for any underlying abnormal heart rhythms - You will continue to take your aspirin daily but you will also take Plavix in addition for 3 months -Do only light and easy activities for 2 to 3 days after your heart catheterization, ask for help with chores and errands while you recover and have someone drive you to your appointments. -Check your incisions every day for signs of infection which would include redness, swelling, leaking. It is normal to have a small bruise or bump where the catheter was placed but a bruise that is getting larger is not normal. Please tell your healthcare team about this. Please proceed to the emergency department if you have uncontrollable bleeding from the site. -It is important to eat a diet that is low in fat, salt, and cholesterol -Okay to shower from the day after your heart catheterization but keep your incision site clean and dry. - You have been started on metformin 500 mg twice daily for your elevated blood sugars, is advised that you take this with food as it can cause GI upset and follow-up with your primary care physician for any further recommendations - Your blood pressure medications have been adjusted, you will resume your losartan?hydrochlorothiazide twice daily but your metoprolol succinate has been increased to 75 mg (1.5 tabs). You will be taking 75 mg instead of 50 mg -You will need to continue to follow-up with cardiology on discharge. Please call to schedule an appointment if you do not already have a future one scheduled -Please call your primary care provider's office upon discharge to schedule a hospital follow up within 1 week. -For any concerning signs or symptoms please call 911 or proceed to the nearest emergency department Discharge Orders/Prescriptions Prescriptions: New metformin 500 mg tablet 500 mg PO BID 30 Days Qty: 60 0RF clopidogrel 75 mg Tablet 75 mg PO DAILY 90 Days Qty: 90 0RF metoprolol succinate 50 mg tablet extended release 24 hr 75 mg PO QHS 30 Days Qty: 45 0RF Continued aspirin [Adult Low Dose Aspirin] 81 mg tablet,delayed release (DR/EC) 81 mg PO QDAY calcium carbonate-vit D3-min 600 mg calcium- 400 unit tablet 1 tab PO QDAY multivitamin tablet 1 tab PO DAILY ascorbic acid (vitamin C) 1,000 mg tablet 1 g PO QDAY albuterol sulfate 90 mcg/actuation HFA aerosol inhaler 2 puff inhalation Q4H PRN (Reason: shortness of breath or wheezing) Qty: 8.5 3RF Rx Instructions: administer with spacer flaxseed oil 1,000 mg capsule 1,000 mg PO DAILY Rx Instructions: administer with a meal Breo Ellipta 200-25 mcg/dose blister with device 1 inh inhalation DAILY Qty: 3 3RF ferrous sulfate 325 mg (65 mg iron) tablet 325 mg PO QDAY losartan-hydrochlorothiazide 50-12.5 mg tablet 1 tab PO BID Qty: 180 3RF cyanocobalamin (vitamin B-12) 1,000 MCG tablet 1,000 mcg PO DAILY Patient Comments: supplement acetaminophen 650 mg tablet extended release 1,300 mg PO Q12H Patient Comments: pain pravastatin 40 mg tablet See Rx Instructions .ROUTE .COMPLEX Qty: 90 3RF Dose Instruction: TAKE 1 TABLET every evening at bedtime. Rx Instructions: TAKE 1 TABLET every evening at bedtime. trazodone 100 mg tablet 50 mg PO QHS PRN (Reason: insomnia) Qty: 90 1RF Rx Instructions: Take one half to one tablet one hour before sleep. Discontinued metoprolol succinate 50 mg tablet extended release 24 hr 50 mg PO QHS Qty: 90 3RF Other Ambulatory Orders: 14 Day Event Recorder Preventi (Urgent) Timeframe: 1 Day Facility: [facility] - Location: Cardiovascular Services Ordered By: Dr. Cammy Estes Referrals / Follow Up: Yong Mora MD [Med Staff - Active Staff, Cardiology] Referral Note: You will need to continue to follow-up with cardiology on discharge. Please call to schedule an appointment if you do not already have a future one scheduled Stacey Robledo MD [Primary Care Provider, Internal Medicine - [facility]] - Within 1 Week Disposition Disposition (needs filled in before D/C Order can be placed): Home, Self Care
--- NOTE | 2025-07-05 11:55 | PCM.DC.SUM ---
Providers Date of Admission: 07/03/25 Date of Discharge: 07/05/25 Primary Care Physician: Dr. Stacey Robledo MD Consultations 07/03/25 03:51 Consult: Cardiology Routine Consulting Provider: Alva Jean Reason for Consult: Chest pain/ACS EMERGENT Consult: No MD Notified: Yes Date Notified: 07/03/25 Time Notified: 03:00 Method of Notification: Text Reason For Visit: CHEST PAIN/ACS Diagnosis Discharge Diagnosis (1) ACS (acute coronary syndrome): Status: Acute Code(s): I24.9 - Acute ischemic heart disease, unspecified (2) History of coronary artery stent placement: Status: Acute Code(s): Z95.5 - Presence of coronary angioplasty implant and graft (3) H/O aortic valve replacement: Status: Chronic Code(s): Z95.2 - Presence of prosthetic heart valve (4) Essential (primary) hypertension: Status: Chronic Code(s): I10 - Essential (primary) hypertension (5) Hyperlipidemia: Status: Chronic Code(s): E78.5 - Hyperlipidemia, unspecified Qualifiers: Hyperlipidemia type: pure hypercholesterolemia Qualified Code(s): E78.00 - Pure hypercholesterolemia, unspecified; E78.0 - Pure hypercholesterolemia (6) JOSE (obstructive sleep apnea): Status: Chronic Code(s): G47.33 - Obstructive sleep apnea (adult) (pediatric) (7) Diabetes mellitus, type 2: Status: Acute Code(s): E11.9 - Type 2 diabetes mellitus without complications Plan # ACS/NSTEMI type I secondary to distal LAD occlusion #Type 2 diabetes mellitus #Hypertension # History of coronary artery disease with stenting #Hx of AV replacement Medications at Discharge Home Medications cyanocobalamin (vitamin B-12) 1,000 mcg tablet 1,000 mcg PO DAILY SUPPLEMENT 02/06/17 aspirin 81 mg tablet,delayed release (Adult Low Dose Aspirin) 81 mg PO QDAY heart health 10/02/17 calcium 600 mg (as carbonate)-vit D3 10 mcg (400 unit)-minerals tablet 1 tab PO QDAY vitamin 10/02/17 multivitamin 1 tab PO DAILY vitamin 02/02/19 acetaminophen 650 mg tablet,extended release 1,300 mg PO Q12H arthritis 02/22/22 albuterol sulfate 90 mcg/actuation aerosol inhaler 2 puff inhalation Q4H PRN shortness of breath or wheezing #8.5 grams 05/17/22 flaxseed oil 1,000 mg capsule 1,000 mg PO DAILY 03/12/23 ferrous sulfate 325 mg (65 mg iron) tablet 325 mg PO QDAY 08/31/24 pravastatin 40 mg tablet See Rx Instructions .Route .COMPLEX #90 tabs 11/05/24 ascorbic acid (vitamin C) 1,000 mg tablet 1 g PO QDAY vitamin 12/30/24 fluticasone furoate 200 mcg-vilanterol 25 mcg/dose inhalation powder (Breo Ellipta) 1 inh inhalation DAILY #3 ea 03/16/25 losartan 50 mg-hydrochlorothiazide 12.5 mg tablet 1 tab PO BID #180 tabs 03/23/25 trazodone 100 mg tablet 50 mg (1/2 x 100 mg) PO QHS PRN insomnia #90 tabs 05/07/25 clopidogrel 75 mg tablet 75 mg PO DAILY 90 days #90 tabs 07/05/25 metformin 500 mg tablet 500 mg PO BID 30 days #60 tabs 07/05/25 metoprolol succinate 50 mg tablet,extended release 24 hr 75 mg (1.5 x 50 mg) PO QHS 30 days #45 tabs 07/05/25 Hospital Course Procedures 2-D Echocardiogram and Transthoracic echo Summary of Care Provided Minutes Spent on Discharge: 32 Hospital Course: 79-year-old female history of JOSE, coronary artery disease status post PCI 2022, hypertension, asthma, valvular heart disease status post AVR who presented to [facility] ED 07/03/2025 with chest pain that started the night before at 11 PM while attempting to go to bed. The pain was discomfort/heaviness in the substernal region with radiation to bilateral upper extremities with nausea and emesis as well as dyspnea. Patient called EMS and got 3 baby aspirins and route to the hospital and was brought in for further evaluation. In ED initial troponin 19 with a repeat of 60 and subsequent of 102, EKG was sinus rhythm with first-degree AV block and no evidence of ischemia. Hospitalist contacted for admission for chest pain and concern for ACS. Patient admitted to PCU, started on heparin drip and cardiology consulted for consideration of cardiac cath. Limited echo ordered to assess for wall motion abnormalities. Patient's limited echo showed an EF of 65% but apical hypokinesis which was new from 03/30/2025. Discussed with cardiology, and patient had cardiac cath 07/05/2025. This demonstrated distal LAD occlusion not amenable to stenting so medical management recommended as well as blood pressure control, Plavix for 3 months in addition to the aspirin and a 14-day event monitor on discharge to evaluate for any underlying arrhythmia. Discussed this with cardiology. On day of discharge patient feeling well, chest pain-free, and no new acute complaints. Discussed her new diagnosis of diabetes, heart cath findings, her blood pressure. Discharge instructions as follows: -You will be discharged with instructions for a 14-day heart monitor to evaluate for any underlying abnormal heart rhythms - You will continue to take your aspirin daily but you will also take Plavix in addition for 3 months -Do only light and easy activities for 2 to 3 days after your heart catheterization, ask for help with chores and errands while you recover and have someone drive you to your appointments. -Check your incisions every day for signs of infection which would include redness, swelling, leaking. It is normal to have a small bruise or bump where the catheter was placed but a bruise that is getting larger is not normal. Please tell your healthcare team about this. Please proceed to the emergency department if you have uncontrollable bleeding from the site. -It is important to eat a diet that is low in fat, salt, and cholesterol -Okay to shower from the day after your heart catheterization but keep your incision site clean and dry. - You have been started on metformin 500 mg twice daily for your elevated blood sugars, is advised that you take this with food as it can cause GI upset - Your blood pressure medications have been adjusted, you will resume your losartan?hydrochlorothiazide twice daily but your metoprolol succinate has been increased to 75 mg (1.5 tabs). You will be taking 75 mg instead of 50 mg Physical Exam Narrative General: Alert, oriented, no apparent distress HEENT: Atraumatic, normocephalic Eyes: Anicteric, normal conjunctiva, extraocular movements grossly intact Neck: Supple Respiratory: Clear to auscultation bilaterally, normal respiratory effort Cardiovascular: Regular rate and rhythm GI: Soft, nontender, nondistended Extremities: No significant pitting peripheral edema Musculoskeletal: Moving all extremities Neuro: No overt focal neurological deficits Skin: No rashes appreciated Psych: Cooperative Weight / BMI Weight Weight: 84.6 kg Body Mass Index (BMI) 33.0 ABG / Lab / Microbiology Data 07/05/25 05:08 07/05/25 05:08 Laboratory: Laboratory Results - last 24 hr 07/04/25 11:36: POC Glucose 193 H 07/04/25 12:25: APTT 71.7 H 07/04/25 16:27: POC Glucose 154 H 07/04/25 19:17: APTT 60.2 H 07/04/25 21:11: POC Glucose 194 H 07/05/25 01:20: APTT 82.7 H 07/05/25 05:08: WBC 10.8, RBC 3.69 L, Hgb 11.0 L, Hct 33.2 L, MCV 90.0, MCH 29.8, MCHC 33.1, RDW Std Deviation 42.5, RDW Coeff of Lisa 12.8, Plt Count 287, MPV 9.3, Sodium 131 L, Potassium 3.6, Chloride 95 L, Carbon Dioxide 23.4, Anion Gap 12, BUN 14, Creatinine 0.60 L, Estim Creat Clear Calc 56.84, Est GFR (MDRD) Non-Af 90, BUN/Creatinine Ratio 24.0 H, Glucose 181 H, Calcium 8.9 07/05/25 06:29: POC Glucose 182 H D/C Instructions DC O2, CPAP, BIPAP Needs Home O2 Discharge instructions: No Meaningful Use Info Meaningful Use Meaningful Use Diagnoses (Choose all that apply): AMI AMI/Post PCI/Angioplasty Aspirin given w/in 24hrs of arrival?: Yes ASA at discharge?: Yes Antiplatelet Therapy at Discharge:: Yes Statins at discharge?: Yes Vikram/ARB at discharge?: Yes Beta Sherif at discharge?: Yes Done w/ Acute CT measure.: Yes Documented LVEF (%): 65 Discharge Plan Admission Admit Date/Time: 07/03/25 16:20 Primary Reason for Your Visit: Chest pain Attending Provider: Cammy Estes Primary Care Provider: Stacey Robledo Consulting Providers: Alva Jean; Nicolasa Lee Instructions Patient Instructions: Cardiac Cath Transradial Additional Instructions / Restrictions: DISCHARGE INSTRUCTIONS PLEASE READ *Please take this with you to your next doctors appointment* -You will be discharged with instructions for a 14-day heart monitor to evaluate for any underlying abnormal heart rhythms - You will continue to take your aspirin daily but you will also take Plavix in addition for 3 months -Do only light and easy activities for 2 to 3 days after your heart catheterization, ask for help with chores and errands while you recover and have someone drive you to your appointments. -Check your incisions every day for signs of infection which would include redness, swelling, leaking. It is normal to have a small bruise or bump where the catheter was placed but a bruise that is getting larger is not normal. Please tell your healthcare team about this. Please proceed to the emergency department if you have uncontrollable bleeding from the site. -It is important to eat a diet that is low in fat, salt, and cholesterol -Okay to shower from the day after your heart catheterization but keep your incision site clean and dry. - You have been started on metformin 500 mg twice daily for your elevated blood sugars, is advised that you take this with food as it can cause GI upset and follow-up with your primary care physician for any further recommendations - Your blood pressure medications have been adjusted, you will resume your losartan?hydrochlorothiazide twice daily but your metoprolol succinate has been increased to 75 mg (1.5 tabs). You will be taking 75 mg instead of 50 mg -You will need to continue to follow-up with cardiology on discharge. Please call to schedule an appointment if you do not already have a future one scheduled -Please call your primary care provider's office upon discharge to schedule a hospital follow up within 1 week. -For any concerning signs or symptoms please call 911 or proceed to the nearest emergency department Discharge Orders/Prescriptions Prescriptions: New metformin 500 mg tablet 500 mg PO BID 30 Days Qty: 60 0RF clopidogrel 75 mg Tablet 75 mg PO DAILY 90 Days Qty: 90 0RF metoprolol succinate 50 mg tablet extended release 24 hr 75 mg PO QHS 30 Days Qty: 45 0RF Continued aspirin [Adult Low Dose Aspirin] 81 mg tablet,delayed release (DR/EC) 81 mg PO QDAY calcium carbonate-vit D3-min 600 mg calcium- 400 unit tablet 1 tab PO QDAY multivitamin tablet 1 tab PO DAILY ascorbic acid (vitamin C) 1,000 mg tablet 1 g PO QDAY albuterol sulfate 90 mcg/actuation HFA aerosol inhaler 2 puff inhalation Q4H PRN (Reason: shortness of breath or wheezing) Qty: 8.5 3RF Rx Instructions: administer with spacer flaxseed oil 1,000 mg capsule 1,000 mg PO DAILY Rx Instructions: administer with a meal Breo Ellipta 200-25 mcg/dose blister with device 1 inh inhalation DAILY Qty: 3 3RF ferrous sulfate 325 mg (65 mg iron) tablet 325 mg PO QDAY losartan-hydrochlorothiazide 50-12.5 mg tablet 1 tab PO BID Qty: 180 3RF cyanocobalamin (vitamin B-12) 1,000 MCG tablet 1,000 mcg PO DAILY Patient Comments: supplement acetaminophen 650 mg tablet extended release 1,300 mg PO Q12H Patient Comments: pain pravastatin 40 mg tablet See Rx Instructions .ROUTE .COMPLEX Qty: 90 3RF Dose Instruction: TAKE 1 TABLET every evening at bedtime. Rx Instructions: TAKE 1 TABLET every evening at bedtime. trazodone 100 mg tablet 50 mg PO QHS PRN (Reason: insomnia) Qty: 90 1RF Rx Instructions: Take one half to one tablet one hour before sleep. Discontinued metoprolol succinate 50 mg tablet extended release 24 hr 50 mg PO QHS Qty: 90 3RF Other Ambulatory Orders: 14 Day Event Recorder Preventi (Urgent) Timeframe: 1 Day Facility: [facility] - Location: Cardiovascular Services Ordered By: Dr. Cammy Estes Referrals / Follow Up: Yong Mora MD [Med Staff - Active Staff, Cardiology] Referral Note: You will need to continue to follow-up with cardiology on discharge. Please call to schedule an appointment if you do not already have a future one scheduled Stacey Robledo MD [Primary Care Provider, Internal Medicine - [facility]] - Within 1 Week Disposition Disposition (needs filled in before D/C Order can be placed): Home, Self Care Charges/Coding Visit Charges Inpatient E&M: 00988 Disch Hosp >30min
--- NOTE | 2025-07-05 13:04 | CASEMGMT ---
Patient has order for discharge. RN CM in to discuss needs at discharge. Patient denies needs or help at discharge. Patient had no further questions or concerns.
--- NOTE | 2025-07-05 13:26 | PHA.DC_ITS ---
Pharmacy [facility] Counseling Pharmacy Service has performed discharge medication reconciliation and counseling for this patient. The patient's discharge medication list was reviewed for discrepancies and discrepancies were resolved. The patient was counseled on the following discharge medications and changes in medications for homegoing were reviewed. The Reason for Use, instructions for use, and potential side effects were reviewed for all new medications. The patient's questions regarding all of their medications were answered. 1. Metoprolol succinate 75 mg PO daily 2. Clopidogrel 75 mg PO daily 3. Metformin 500 mg PO BID with meals The patient was able to verbally demonstrate an understanding of their discharge medications. Medications at Discharge Home Medications cyanocobalamin (vitamin B-12) 1,000 mcg tablet 1,000 mcg PO DAILY SUPPLEMENT 02/06/17 aspirin 81 mg tablet,delayed release (Adult Low Dose Aspirin) 81 mg PO QDAY heart health 10/02/17 calcium 600 mg (as carbonate)-vit D3 10 mcg (400 unit)-minerals tablet 1 tab PO QDAY vitamin 10/02/17 multivitamin 1 tab PO DAILY vitamin 02/02/19 acetaminophen 650 mg tablet,extended release 1,300 mg PO Q12H arthritis 02/22/22 albuterol sulfate 90 mcg/actuation aerosol inhaler 2 puff inhalation Q4H PRN shortness of breath or wheezing #8.5 grams 05/17/22 flaxseed oil 1,000 mg capsule 1,000 mg PO DAILY supplement 03/12/23 ferrous sulfate 325 mg (65 mg iron) tablet 325 mg PO QDAY 08/31/24 pravastatin 40 mg tablet See Rx Instructions .Route .COMPLEX cholesterol #90 tabs 11/05/24 ascorbic acid (vitamin C) 1,000 mg tablet 1 g PO QDAY vitamin 12/30/24 fluticasone furoate 200 mcg-vilanterol 25 mcg/dose inhalation powder (Breo Ellipta) 1 inh inhalation DAILY breathing #3 ea 03/16/25 losartan 50 mg-hydrochlorothiazide 12.5 mg tablet 1 tab PO BID blood pressure #180 tabs 03/23/25 trazodone 100 mg tablet 50 mg (1/2 x 100 mg) PO QHS PRN insomnia #90 tabs 05/07/25 clopidogrel 75 mg tablet 75 mg PO DAILY 90 days #90 tabs 07/05/25 metformin 500 mg tablet 500 mg PO BID 30 days #60 tabs 07/05/25 metoprolol succinate 50 mg tablet,extended release 24 hr 75 mg (1.5 x 50 mg) PO QHS 30 days #45 tabs 07/05/25
== END 2025-07-05 13:45 | disposition home or self-care (01) | DRG 282 ==
LOC: ED 07-03 03:02 → PCU 07-03 03:12
PROVIDERS: Admitting Provider Family Medicine; Emergency Provider Emergency Medicine; PCP Internal Medicine; Visit Provider Internal Medicine
DX: I21.4 Non-ST elevation (NSTEMI) myocardial infarction (principal); E11.65 Type 2 diabetes mellitus with hyperglycemia; D50.9 Iron deficiency anemia, unspecified; E66.9 Obesity, unspecified; E11.22 Type 2 diabetes mellitus with diabetic chronic kidney disease; Z95.2 Presence of prosthetic heart valve; I12.9 Hypertensive chronic kidney disease with stage 1 through stage 4 chronic kidney disease, or unspecified chronic kidney disease; J45.909 Unspecified asthma, uncomplicated; E78.5 Hyperlipidemia, unspecified; N18.2 Chronic kidney disease, stage 2 (mild); K21.9 Gastro-esophageal reflux disease without esophagitis; G47.33 Obstructive sleep apnea (adult) (pediatric); I44.0 Atrioventricular block, first degree; I25.10 Atherosclerotic heart disease of native coronary artery without angina pectoris; Z87.891 Personal history of nicotine dependence; Z82.49 Family history of ischemic heart disease and other diseases of the circulatory system; Z95.5 Presence of coronary angioplasty implant and graft; Z79.82 Long term (current) use of aspirin; Z86.16 Personal history of COVID-19; Z99.89 Dependence on other enabling machines and devices; Z68.32 Body mass index [BMI] 32.0-32.9, adult
CPT/HCPCS: 36415; 71045; 80048; 80053; 80061; 82962; 83036; 83735; 84484; 85025; 85027; 85610; 85730; 93005; 93308; 93454; 94668; 97802; 99152; 99153; 99285; Q9967; A4216; C1769; C1894

== ENCOUNTER 2025-07-13 14:54 | Outpatient (CLI) | payer MEDICARE, OTHER, SELFPAY ==
[2024-05-01 09:54] VITALS: BMI 28.5
[2025-07-13 15:39] LABS: Hematocrit 33.1 % (37-47); Hemoglobin 11.4 g/dL (12.0-15.0); Immature Granulocytes Count 0.070 X10^3/uL (0.0-0.0); Mean Corp Hgb Conc 34.4 g/dL (32-36); Mean Corpuscular Volume 86.0 fL (81-99); Mean Platelet Vol. 8.5 fl (6.2-12.0); NRBC Flagged by Analyzer 0 % (0-5); Platelet Count 397 K/mm3 (150-450); RBC Distribution Width CV 12.0 % (11.6-14.6); RBC Distribution Width SD 37.9 fl (35.1-43.9); Red Blood Count 3.85 M/mm3 (4.2-5.4); White Blood Count 7.4 K/mm3 (4.4-11.0)
[2025-07-13 16:05] LABS: AST(SGOT) 19 U/L (<=31); Alanine Aminotransfer ALT/SGPT 19 U/L (<=34); Albumin, Serum 4.3 g/dL (3.4-4.8); Alkaline Phosphatase 86 U/L (35-104); Anion Gap 15 (5-15); BUN 20 mg/dL (4-19); BUN/Creat Ratio 24.1 RATIO (10-20); Calcium,Total 9.9 mg/dL (7.6-11.0); Carbon Dioxide 23.7 mmol/L (21.0-32.0); Chloride 86 mmol/L (98-108); Globulin 2.8 g/dL (2.2-4.2); Glucose 150 mg/dL (70-99); Potassium 3.8 mmol/L (3.3-5.1)
[2025-07-13 16:09] LABS: Anion Gap 15 (5-15); BUN 20 mg/dL (4-19); BUN/Creat Ratio 24.1 RATIO (10-20); Calcium,Total 9.7 mg/dL (7.6-11.0); Carbon Dioxide 22.9 mmol/L (21.0-32.0); Chloride 86 mmol/L (98-108); Free T3 2.6 pg/mL (2.18-3.98); Glucose 149 mg/dL (70-99); Iron 65 ug/dL (50-170); Iron Binding Capacity,Total 356 ug/dL (250-450); Iron Binding Capacity,Unsat 291 ug/dL (228-428); Magnesium 1.7 mg/dL (1.5-2.2); Potassium 3.8 mmol/L (3.3-5.1)
== END 2025-07-13 23:59 | disposition home or self-care (01) ==
LOC: LAB 14:56
PROVIDERS: PCP Internal Medicine; Referring Provider Nurse Practitioner Gerontology; Visit Provider Nurse Practitioner Gerontology
DX: I21.9 Acute myocardial infarction, unspecified (principal); E11.9 Type 2 diabetes mellitus without complications; R53.83 Other fatigue; I10 Essential (primary) hypertension; R00.2 Palpitations; I25.119 Atherosclerotic heart disease of native coronary artery with unspecified angina pectoris; Z95.5 Presence of coronary angioplasty implant and graft
CPT/HCPCS: 36415; 80048; 80053; 83036; 83540; 83550; 83735; 84439; 84443; 84481; 85025

== ENCOUNTER → 2025-07-20 | Outpatient (CLI) | payer MEDICARE, OTHER, SELFPAY ==
[2024-05-01 09:54] VITALS: BMI 28.5
[2025-07-20 14:08] LABS: Anion Gap 12 (5-15); BUN 18 mg/dL (4-19); BUN/Creat Ratio 25.8 RATIO (10-20); Calcium,Total 9.6 mg/dL (7.6-11.0); Carbon Dioxide 25.1 mmol/L (21.0-32.0); Chloride 96 mmol/L (98-108); Glucose 150 mg/dL (70-99); Potassium 4.3 mmol/L (3.3-5.1)
== END | disposition home or self-care (01) ==
PROVIDERS: Nurse Practitioner Gerontology; PCP Internal Medicine; Referring Provider Physician Assistant Medical; Visit Provider Physician Assistant Medical
DX: E87.1 Hypo-osmolality and hyponatremia (principal)
CPT/HCPCS: 36415; 80048

== ENCOUNTER → 2025-07-29 | Outpatient (CLI) | payer MEDICARE, OTHER, SELFPAY ==
[2024-05-01 09:54] VITALS: BMI 28.5
--- NOTE | 2025-07-29 10:15 | CR.HP_ITS ---
CR - History & Physical
--- NOTE | 2025-07-29 10:15 | PCM.CR.HP2 ---
CR - History & Physical General Arrival date:: 07/29/25 Arrival time:: 10:15 Date of Referral:: 07/13/25 Date of CR Evaluation:: 07/29/25 Referring Physician: Dr. Mora Primary Diagnosis: GA-NonSTEMI <12 months History of Present Cardiac Event Onset Date Acute Myocardial Infarction within 12 months:: Yes (onset 07/03/25) Medications Ambulatory Orders ?Medication ?Instructions ?Recorded cyanocobalamin (vitamin B-12) 1,000 mcg PO DAILY SUPPLEMENT 02/06/17 1,000 mcg tablet aspirin 81 mg tablet,delayed 81 mg PO QDAY heart health 10/02/17 release (Adult Low Dose Aspirin) calcium 600 mg (as carbonate)-vit 1 tab PO QDAY vitamin 10/02/17 D3 10 mcg (400 unit)-minerals tablet multivitamin 1 tab PO DAILY vitamin 02/02/19 acetaminophen 650 mg 1,300 mg PO Q12H arthritis 02/22/22 tablet,extended release albuterol sulfate 90 mcg/actuation 2 puff inhalation Q4H PRN 05/17/22 aerosol inhaler shortness of breath or wheezing #8.5 grams flaxseed oil 1,000 mg capsule 1,000 mg PO DAILY supplement 03/12/23 ferrous sulfate 325 mg (65 mg 325 mg PO QDAY 08/31/24 iron) tablet pravastatin 40 mg tablet See Rx Instructions .Route 11/05/24 .COMPLEX cholesterol #90 tabs ascorbic acid (vitamin C) 1,000 mg 1 g PO QDAY vitamin 12/30/24 tablet fluticasone furoate 200 1 inh inhalation DAILY breathing 03/16/25 mcg-vilanterol 25 mcg/dose #3 ea inhalation powder (Breo Ellipta) trazodone 100 mg tablet 50 mg (1/2 x 100 mg) PO QHS PRN 05/07/25 insomnia #90 tabs clopidogrel 75 mg tablet 75 mg PO DAILY 90 days #90 tabs 07/05/25 biotin 1 mg capsule 1 mg PO QDAY 07/08/25 stool softner PO 07/08/25 losartan 50 mg tablet 50 mg PO BID #60 tabs 07/26/25 metformin 500 mg tablet 500 mg PO BID 30 days #90 tabs 07/26/25 metoprolol succinate 50 mg 75 mg (1.5 x 50 mg) PO QHS 30 days 07/26/25 tablet,extended release 24 hr #45 tabs amlodipine 5 mg tablet 5 mg PO QDAY #30 tabs 07/27/25 Allergies Allergies meloxicam Adverse Reaction (Verified 07/09/25 14:35) Nausea methotrexate Adverse Reaction (Verified 07/09/25 14:35) Nausea NSAIDS (Non-Steroidal Anti-Inflamma Adverse Reaction (Verified 07/09/25 14:35) Nausea Sulfa (Sulfonamide Antibiotics) Adverse Reaction (Verified 07/09/25 14:35) Nausea Sleep Disorder Evaluation Hx of Sleep Apnea: Yes Do you snore loudly (louder than talking or can be heard through closed doors)?: No Do you often feel tired/ fatigued/ sleepy during daytime?: No Has anyone observed you stop breathing during sleep?: No History of Hypertension (for STOP score): Yes STOP Results: Negative Advanced Directives Advanced Directives Do you have a Healthcare Power of Order Clerk?: Yes Living Will: Yes Advance Directives Information Provided: No Advance Directives on File: Yes DNR Order?:: No Past Medical History Covid-19 Screening Physicial Symptoms Other Clinical Concerns Exposure Risk Pertinent Comorbidities 65 years or older:: Yes Has a serious heart condition:: Yes Diabetic:: Yes Past Medical Illness Past Medical History (Updated 07/13/25 @ 12:06 by Evelin Dhillon) NSTEMI (non-ST elevated myocardial infarction) (07/03/25) I21.4 Fracture of 5th metatarsal S92.353A Wears hearing aid Z97.4 Wears glasses Z97.3 Alcohol use Z78.9 CPL DRINKS PER WEEK Low iron E61.1 Restless legs G25.81 CPAP (continuous positive airway pressure) dependence Z99.89 Former smoker Z87.891 QUIT IN 1982 Cardiology follow-up encounter Z09 03/12/2023 History of stress test Z92.89 01/03/23 [facility] [place] [place] History of echocardiogram Z92.89 01/03/2023 [facility] 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 Atherosclerotic heart disease [place] coronary artery w/angina pectoris I25.119 [id number] LAD at D2 bifurcation w/ 3.5 x 18 mm [employer] [place] Stent and POBA-D2 03/02/22; Nonrheumatic aortic (valve) stenosis I35.0 Essential (primary) hypertension I10 COVID-19 (08/31/20) U07.1 Psoriatic arthritis L40.50 Hyperlipidemia E78.5 Past Surgical History Past Surgical History (Updated 07/13/25 @ 00:00 by Francisco Benitez) Hx of total knee replacement (~10/13/24) Z96.659 History of cardiac catheterization Z98.890 02/2022 [facility] History of colonoscopy Z98.890 History of coronary artery stent placement (03/02/22) Z95.5 [id number] LAD at D2 bifurcation w/ 3.5 x 18 mm meebee Stent and POBA-D2 03/02/22; History of left heart catheterization (03/14/17) Z98.890 History of shoulder surgery Z98.890 History of partial colectomy (~2011) Z90.49 H/O aortic valve replacement (04/08/17) Z95.2 # 21 Trifecta Valve @ [facility] [place] Surgical History: colectomy and - Family History Summary Family History Brother Heart disease AV replaced and CABG X 1 CAD (coronary artery disease) CABG x 1 w/ AVR Mother Heart disease Valvular heart disease Heart failure Father Cancer COPD (chronic obstructive pulmonary disease) Social History Smoking History Smoking Status: Former smoker Years Smokin (stopped 40 years ago) Packs Smoked per Day: 1 Alcohol Use Alcohol Usage: Yes (occas) Substance Abuse Hx Substance Use: No Occupation Occupation (List type of work in comments):: Retired (semi retired) Social Environment Status Marital Status: Current Living Arrangements Living Environment:: Family Children How many children do you have?: 4 Do any of your children live nearby?: Yes Safety Do you feel safe in your surroundings?: Yes Assistance Do you need any assistance at home?: no Review of Systems Review of Systems Hints Review of Present Symptoms: Reports Shortness of Breath at Rest, Shortness of Breath with Exertion, Angina (very little), Dizziness/Lightheadedness, Fatigue, Appetite - Normal, Appetite - Special Diet and Sleep - Normal; Denies PVD, Operative Discomfort, Wound Healing, Heart Arrhythmia/Irregularities or Sexual Changes Pain Is Patient Pain Free?: Yes Risk Factor Assessment Chief Complaint Chief Complaint: GA-NonSTEMI <12 months Vital Signs Pulse Ox: 96 Blood Pressure: 129/70 Pulse Pulse Rate: 73 Hypertension Blood Pressure Sitting - Right Arm: 129/70 Stress Stress: Work-related and Home/Family Diabetes Diabetic History: Type II Nutrition Referral for Diabetes: No Obesity Height: 5 ft 3 in Weight:: 167 lb Weight in Pounds: 167.0 lbs Body Mass Index (BMI): 29.5 Nutritional Referral for Obesity: No Physical Inactivity Physical Inactivity: Reg Exercise 30 min/day Risk Stratification Risk Guidelines: Lowest Risk: Risk Factor for Smoking, Moderate Risk: Risk Factor for Sedentary Lifestyle and Risk Factor for Depression and Highest Risk: Risk Factor for Dyslipidemia, Risk Factor for Diabetes, Risk Factor for Obesity and Risk Factor for Hypertension For Smoking Smoking Risk Guidelines For Dyslipidemia Dyslipidemia Risk Guidelines For Diabetes Mellitus Diabetes Risk Guidelines For Obesity/Overweight Obesity/Overweight Risk Guidelines For Hypertension Hypertension Risk Guidelines For Sedentary Lifestyle Sedentary Lifestyle Risk Guidelines For Depression Depression Risk Guidelines Family History Family History Brother Heart disease AV replaced and CABG X 1 CAD (coronary artery disease) CABG x 1 w/ AVR Mother Heart disease Valvular heart disease Heart failure Father Cancer COPD (chronic obstructive pulmonary disease) Motivation Motivation to Participate On a scale of 1 to 10, how prepared are you to commit to attending program?: 8 What do you see as barriers to successfully being able to complete the program?: nothing What do you see as the benefits of succesfully completing the program? In other words, what do you hope to get out of participating in the program?: more energy and stamina Are there issues you are dealing with that will interfere with completing the program?: no Do you have a spouse or signficant other, family or friends who will help support you to complete the program?: yes
[2025-07-29 10:20] VITALS: BP 129/70; PULSE 73; O2SAT 96
--- NOTE | 2025-07-29 10:20 | PCM.CR.ITP ---
Diagnosis General Information Admitting Diagnosis: NV-NonSTEMI <12 months Personal Learning Style:: Audio/Visual Barriers to Learning: No Barriers Stage of change r/t lifestyle modifications:: Contemplation Gave educational material for:: Treating Heart Disease, How The Heart Works, What it means to have Heart Disease, How Coronary Artery Disease is Diagnosed, Heart Procedures, What Heart Medications Do, Risk Factors & Modifications, Living an Active Life, Nutrition, Emotions & Heart Disease, Stress Management & Relaxation and Sleep Disorders & Heart Disease Education/Goals Cardiac Rehabilitation Goals Personal Goals: Initial Assessment: Improve energy level, Participate in home exercise program, Improve knowledge of cardiac disease, Improve muscle strength and endurance, Improve diet and eating habits (eat healthier) and Control risk factors (learn risk factor modification) Scale for measuring improvement of personal goals Diagnosis & Disease Process Outcomes/Goals: Pt IDs own risk factors & lifestyle modifications by Session 10, Verbalizes symptoms of angina & response by session 3., Pt independently manages and Other Additional Outcomes/Goals: Plan/Interventions: Assist Pt to ID & engage in lifestyle modification to reduce CVD risk, Instruct on individual risk factors, Review symptoms of angina & emergency actions, Review secondary diagnosis & identify educational needs. and Other see comment 30 day Reassessments:: Not Met 30 day Reassessments:: Not Met 30 day Reassessments:: Not Met 30 day Reassessments:: Not Met Final Reassessments:: Not Met Safety Referral to Physical Therapy: No Referral to [facility] Case Management: No Fall Risk Assessed:: Yes Assistive Devices:: None Exercise - Initial Assessment Visit Date of Eval: 07/29/25 (initial eval ) Mets: Pre-: >3 METS for 30 minutes by discharge, >5 METS for 30 minutes by discharge, >7 METS for 30 minutes by discharge and Unable to meet goal due to: (see comment below) Physician Prescribed Exercise Modalities: Treadmill, Rower, Schwinn Airdyne AD-7, SciFit Stepper, SciFit Pro-II Ergometer and SciFit Lateral Rag Sorter And Cutter Frequency: 3x/week for 12 weeks [36 sessions] Intensity: 60-80% of age predicted maximum heart rate reserve Duration: 30 - 45 minutes Current METSs:: 3 Target Heart Rate:: 83-104 Resting Blood Pressure: 129/70 EKG Type: SR 1st degree AV block Outcomes & Goals Goals:: Verbalizes understanding of THR, RPE & goal METS by session 6, Documents in home exercise log/reports 30 min aerobic 5 day/wk by DC, Demonstrates accurate pulse taking by DC and Other additional outcome/goals: see below Intervention & Plan Exercise Program Goals: Instruct on personal THR & RPE, Instruct on MET level & personal MET goal, Show patient to take own pulse /validate performance until accurate, Instruct on home exercise and Other additional plan/int Physical Activity Home Exercise Physical Activity - Home Exercise: Safe Exercise, Warm-up, Self-monitoring, Cool-Down, Home Exercise > 30 min Daily and Sitting Time <3 hours/daily Outcomes & Goals Outcomes/Goals: Demonstrates correct Warm-up/exercise Cool-Down (S3) if = 2.5 METs, Verbalizes symptoms of exercise intolerance by Session 3 (S3), Demonstrate safe equipment use (S3) & follows exercise prescrition (6) and Other: See below Intervention & Plan Plan/Intervention: Instruct warm-up & cool-down if exercising at > 2 METs, Instruct on symptoms of exercise intolerance & actions to take, Instruct & monitor on saf, Assess intial functional capacity & safety risk and Other See below Nutrition - Initial Assessment Program Goals Nutrition Program Goals Patient has diagnosis of Hyperlipidemia (ICD E78)?: Yes Visit Date of Eval: 07/29/25 (initial eval. Nutrition survey score 3.) Cholesterol/Lipids (Other Core Measures) Determine presence & major risk factors that modify LDL goal: Cigarette smoking, Hypertension or hypertensive medication, Low HDL cholesterol <40 mg/dL*, Family history of premature CHD in Male < 55 years: female <65 yearsFa and Age men > 45 years; women >/= 55 years Outcomes/Goals: Pt IDs own risk factors & lifestyle modifications by Session 10, Verbalizes symptoms of angina & response by session 3., Pt independently manages and Other Additional Outcomes/Goals: Intervention/Plan: Advocate for lipid panel cholesterol medication if applicable, Instruct on personal lipid levels & lipid goals/NCEP guidelines, Instruct on cholesterol and Other additional plan/int Referral to dietitian:: No Diabetes (Other Core Measures) Diabetes Type: Diagnosis Type II ICD-10 E11 Insulin dependent injection/pump?: No Non-Insulin Dependent?: Yes Do you monitor your blood sugar at home?: No Referral to Diabetic Clinic:: No Outcomes/Goals:: Able to state symptoms of, Able to state, Able to state and Other additional Intervention/Plan:: Instruct on, Refer to, Instruct on and Other Weight Mgt (Other Care) Height: 5 ft 3 in Weight:: 167 lb BMI: 29.5 Diagnosis Overweight/Obesity BMI> 30% ICD-10 E66: No Diagnosis High BMI/Morbid Obesity BMI> 35% ICD-10 Z68: No Outcomes/Goals: Pt sets, maintains & shows weight loss goal & trend during rehab and Other additional outcomes/goals Intervention/Plan: Instruct on ideal BMI & set weight loss goal w/patient, Assist pt to ID & incorporate diet changes for weight loss by S9, Refer to Structured Weight Loss program as appropriate, Encourage goal of using 250-300dcal per session for weight loss and Other additional plan/interventions Healthy Eating Habits Will attend diet classes:: Yes Outcomes/Goals:: Consume diet rich in vegs,fruits,whole grain/high fiber,fish,lean meat, Limit sat/trans fats,cholesterol & added salts & sugars and Other additional outcome/goals: Intervention/Plan:: Assess current eating habits and Other Additional plan/interventions Education Gave educational materials for:: Signs & symptoms of hypoglycemia, Signs & symptoms of hyperglycemia and Healthy eating Core - Initial Assessment Visit Date of Eval: 07/29/25 (initial eval ) Medication Compliance Preventative Medication(s):: Aspirin, Clopidogrel/P2Y12 inhibit, Statin/lipid, Beta tesfaye and ARB (Angiotensi Rcap) H/O mental health issues: depression, anxiety, or addiction?: No Doesn?t believe in the benefits of treatment?: No Believes medications are unnecessary or harmful?: No Has a concern about medication side effects?: No Expresses concern over the cost of medications?: No Outcomes/Goals: Verbalizes medications,desired effect & common side effects @ DC, Pt self-reports following medication regimen, Keeps card in wallet w/medications listed by DC and Other additional outcome/goals: Interventions/plans: Instruct on medication effects & side effects, Review medication list w/patient every two weeks, Instruct importance of taking meds as ordered & assist problem solving and Other additional Tobacco Use Tobacco Use: Non-smoker Years Smokin (stopped 40 years ago) Outcomes/Goals: Smoking cessation achieved or maintained by discharge, Identify aids/strategies for achieving smoking cessation by session 6 and Other additional outcome/goals Interventions/plan: Instruct on effects of smoking & provide smoking cessation resource, Assist pt to set quit date & provide encouragement, Assist pt to develop strategies to achieve/maintain quit date, Assist pt w/nicotine replacement & medication for cessation success and Other additional plan/interventions Hypertension Hypertension Diagnosis:: Hypertension ICD-10 I10 Resting Blood Pressure:: 129/70 [place] [employer] Hypertension Guidelines Outcomes/Goals: Able to verbalize/achieve optimal blood pressure <130/80, Incorporates diet changes & exercise for blood pressure control by DC and Other additional outcomes/goals Interventions/plan: Instruct on optimal blood pressure, hypertension & medications, Instruct on effects of sodium, alcohol, stress, exercise &hypertension and Other additional plan/interventions Tobacco Cessation Referral Smoking Cessation Referral:: No Individual Education/Counseling:: No Education Schedule Given:: Yes Psychosocial - Initial Assess VIsit Date of Eval: 07/29/25 History of previous Mental disease:: No Self-reported stressors: Family, Medical/Health and Other (business) Psychosocial Test Tool Used:: [employer] QOL Cardiac and PHQ-9 Questionnaire phq-9 Severity See PHQ-9 Score: 6 Referral to Behavioral Health PS - Interventions: Yes: Attend Stress Management Classes Outcomes/Goals: See list Psychosocial Outcomes/Goals:: ID's personal stressors & 2 strategies to manage stress by discharge and Other Additional outcome/goals: Intervention/Plan: See List Interventions/Plan:: Assess stressors,coping strategies & signs of derpression on admission, Instruct/assist pt to develop coping & personal stress Mgt strategies, Refer to Behavioral Health if appropriate, Refer to Physician if appropriate, Instruct patient to recognize signs & symptoms of depression, Instruct patient to recog and Other additional plan/intervention Comments:: In PHQ9 pt answered #9 with several days. She states that she would never hurt herself. Patient Health Questionnaire PHQ-9 Screening Initial Assessment: 1. Little interest or pleasure in doing things: Several days 2. Feeling down, depressed, or hopeless: Several days 3. Trouble falling or staying asleep, or sleeping too much: Several days 4. Feeling tired or having little energy: More than half the days 5. Poor appetite or overeating: Not at all 6. Feeling bad about yourself -- or that you are a failure or have let yourself or your family down: Not at all 7. Trouble concentrating on things, such as reading the newspaper or watching television: Not at all 8. Moving or speaking so slowly that other people could have noticed. Or the opposite - being so fidgety or restless that you have been moving around a lot more than usual: Not at all 9. Thoughts that you would be better off , or of hurting yourself in some way: Several days (Pt states that she would never hurt herself. ) How difficult have these problems made it for you to do your work, take care of things at home, or get along with other people?: Somewhat difficult Total Score: 6 Nutrition Survey Nutrition Survey Initial: Have you lost >10 lbs over the past 2 months without trying?: No Are you following a special diet at home for diabetes, low fat, or low salt?: Yes Are you interested in meeting with a dietitian for help understanding your diet?: Yes Do you eat less than 3 meals a day?: No Do you eat fatty meats (blake, sausage, ribs, etc), fried foods, desserts, large amounts of salad dressings, margarine, butter, or cheese most days?: No Do you have food allergies? [Enter types in comment field]: No Do you eat in restaurants more than 3 times a week?: No Do you season food with salt, seasoning salt, or garlic salt?: Yes Do you used canned, boxed, frozen meals, or soups, seasoning packets?: No Total Score:: 3 Exercise - 30-day Assessment Physician Prescribed Exercise Modalities: Treadmill, Rower, Schwinn Airdyne AD-7, SciFit Stepper, SciFit Pro-II Ergometer and SciFit Lateral Rag Sorter And Cutter Exercise - 60-day Assessment Physician Prescribed Exercise Modalities: Treadmill, Rower, Schwinn Airdyne AD-7, SciFit Stepper, SciFit Pro-II Ergometer and SciFit Lateral Rag Sorter And Cutter Exercise - 90-day Assessment Physician Prescribed Exercise Modalities: Treadmill, Rower, Schwinn Airdyne AD-7, SciFit Stepper, SciFit Pro-II Ergometer and SciFit Lateral [place] Exercise - Final/Discharge Physician Prescribed Exercise Modalities: Treadmill, Rower, Schwinn Airdyne AD-7, SciFit Stepper, SciFit Pro-II Ergometer and SciFit Lateral Rag Sorter And Cutter Frequency: 3x/week for 12 weeks [36 sessions] Intensity: 60-80% of age predicted maximum heart rate reserve Current METSs:: 3 Target Heart Rate:: 83-104 Nutrition - 30-Day Assessment Weight Mgt (Other Care) Height: 5 ft 3 in Weight:: 167 lb BMI: 29.5 Nutrition - 60-Day Assessment Weight Mgt (Other Care) Height: 5 ft 3 in Weight:: 167 lb BMI: 29.5 Core - 30-Day Assessment Tobacco Use Years Smokin (stopped 40 years ago) Core - Final Assessment Hypertension Resting Blood Pressure:: 129/70 [employer] [employer] Hypertension Guidelines Core - 60-Day Assessment Hypertension Resting Blood Pressure:: 129/70 [place] [employer] Hypertension Guidelines Psychosocial - 30-Day Assess Referral to Behavioral Health PS - Interventions: Yes: Attend Stress Management Classes Psychosocial - 60-Day Assess Referral to Behavioral Health PS - Interventions: Yes: Attend Stress Management Classes Psychosocial - 90-Day Assess Referral to Behavioral Health PS - Interventions: Yes: Attend Stress Management Classes Psychosocial - Final Assessmen Psychosocial Test phq-9 Severity See PHQ-9 Score: 6 Referral to Behavioral Health PS - Interventions: Yes: Attend Stress Management Classes Nutrition - 90-Day Assessment Weight Mgt (Other Care) Height: 5 ft 3 in Weight:: 167 lb BMI: 29.5 Nutrition - Final Assessment Program Goals Patient has diagnosis of Hyperlipidemia (ICD E78)?: Yes Weight Mgt (Other Care) Height: 5 ft 3 in Weight:: 167 lb BMI: 29.5
[2025-07-29 10:25] VITALS: BP 129/70
[2025-07-29 11:02] VITALS: BP 129/70; BMI 29.5
== END | disposition home or self-care (01) ==
LOC: CR 10:12
PROVIDERS: PCP Internal Medicine; Referring Provider Internal Medicine Cardiovascular Disease; Visit Provider Internal Medicine Cardiovascular Disease
DX: I21.4 Non-ST elevation (NSTEMI) myocardial infarction (principal); I24.9 Acute ischemic heart disease, unspecified; E11.9 Type 2 diabetes mellitus without complications; I10 Essential (primary) hypertension; I25.119 Atherosclerotic heart disease of native coronary artery with unspecified angina pectoris; Z95.5 Presence of coronary angioplasty implant and graft

== ENCOUNTER 2025-08-13 10:15 | Outpatient (RCR) | payer MEDICARE, OTHER, SELFPAY ==
[2025-07-29 11:02] VITALS: BMI 29.5
--- NOTE | 2025-08-23 08:17 | CR.ITP_ITS ---
Exercise - Initial Assessment Visit Session #:: 3 Physician Prescribed Exercise Modalities: Treadmill, Schwinn Airdyne AD-7 and SciFit Stepper Nutrition - Initial Assessment Weight Mgt (Other Care) Height: 5 ft 3 in Weight:: 165 lb 8 oz BMI: 29.2 Psychosocial - Initial Assess Referral to Behavioral Health PS - Interventions: Yes: Attend Stress Management Classes Exercise - 30-day Assessment Visit Date of Eval: 08/23/25 Session #:: 3 Physician Prescribed Exercise Modalities: Treadmill, Schwinn Airdyne AD-7 and SciFit Stepper Frequency: 3x/week for 12 weeks [36 sessions] Intensity: 60-80% of age predicted maximum heart rate reserve Duration: 30 - 45 minutes METs - Progression 0.5-1.0 weekly:: 0.5 Current METSs:: 3 Target Heart Rate:: 83-104 Target RPE 12-16:: 12-16 Current RPE:: 13 Maximum Excercise HR:: 99 Resting Blood Pressure: 128/66 Maximum Exercise Blood Pressure: 148/62 EKG Type: sinus roxie to NSR, rare pac. Current Physical Activity or Exercising minutes: 30 mins Outcomes & Goals Goals:: Verbalizes understanding of THR, RPE & goal METS by session 6, Documents in home exercise log/reports 30 min aerobic 5 day/wk by DC and Demonstrates accurate pulse taking by DC Intervention & Plan Exercise Program Goals: Instruct on personal THR & RPE, Instruct on MET level & personal MET goal, Show patient to take own pulse /validate performance until accurate and Instruct on home exercise 30-day Reassessments 30 day Reassessments:: Progressing Physical Activity Home Exercise Physical Activity - Home Exercise: Safe Exercise, Warm-up, Self-monitoring, Cool-Down, Home Exercise > 30 min Daily and Sitting Time <3 hours/daily Outcomes & Goals Outcomes/Goals: Demonstrates correct Warm-up/exercise Cool-Down (S3) if = 2.5 METs, Verbalizes symptoms of exercise intolerance by Session 3 (S3), Demonstrate safe equipment use (S3) & follows exercise prescrition (6) and Other: See below Intervention & Plan Plan/Intervention: Instruct warm-up & cool-down if exercising at > 2 METs, Instruct on symptoms of exercise intolerance & actions to take, Instruct & monitor on saf, Assess intial functional capacity & safety risk and Other See below 30-day Reassessments 30 day Reassessments:: Progressing Reassessment Notes & Comments:: educated on safe use of exercise equipment. RPE scale explained, pt demonstrates understanding. Exercise - 60-day Assessment Physician Prescribed Exercise Modalities: Treadmill, Schwinn Airdyne AD-7 and SciFit Stepper Exercise - 90-day Assessment Physician Prescribed Exercise Modalities: Treadmill, Schwinn Airdyne AD-7 and SciFit Stepper Exercise - Final/Discharge Physician Prescribed Exercise Modalities: Treadmill, Schwinn Airdyne AD-7 and SciFit Stepper Nutrition - 30-Day Assessment Program Goals Nutrition Program Goals Patient has diagnosis of Hyperlipidemia (ICD E78)?: Yes Visit Date of Eval: 08/23/25 Session #:: 3 (nutrition score of 3.) Cholesterol/Lipids (Other Core Measures) Determine presence & major risk factors that modify LDL goal: Cigarette smoking, Hypertension or hypertensive medication, Low HDL cholesterol <40 mg/dL*, Family history of premature CHD in Male < 55 years: female <65 yearsFa and Age men > 45 years; women >/= 55 years Outcomes/Goals: Pt IDs own risk factors & lifestyle modifications by Session 10, Verbalizes symptoms of angina & response by session 3., Pt independently manages and Other Additional Outcomes/Goals: Intervention/Plan: Advocate for lipid panel cholesterol medication if applicable, Instruct on personal lipid levels & lipid goals/NCEP guidelines, Instruct on cholesterol and Other additional plan/int 30-day Reassessments:: Progressing Diabetes (Other Core Measures) Diabetes Type: Diagnosis Type II ICD-10 E11 Insulin dependent injection/pump?: No Non-Insulin Dependent?: Yes Do you monitor your blood sugar at home?: No Referral to Diabetic Clinic:: No Outcomes/Goals:: Able to state symptoms of, Able to state, Able to state and Other additional Intervention/Plan:: Instruct on, Refer to, Instruct on and Other 30-day Reassessments:: Progressing Reassessment Notes & Comments:: pt takes diabetic medication as prescribed. Weight Mgt (Other Care) Height: 5 ft 3 in Weight:: 165 lb 8 oz BMI: 29.2 Diagnosis Overweight/Obesity BMI> 30% ICD-10 E66: Yes Outcomes/Goals: Pt sets, maintains & shows weight loss goal & trend during rehab and Other additional outcomes/goals Intervention/Plan: Instruct on ideal BMI & set weight loss goal w/patient, Assist pt to ID & incorporate diet changes for weight loss by S9, Refer to Structured Weight Loss program as appropriate, Encourage goal of using 250- 300dcal per session for weight loss and Other additional plan/interventions 30 day Reassessments:: Progressing Reassessment Notes & Comments:: Pt will weigh weekly during cardiac rehab program to monitor progress. Healthy Eating Habits Will attend diet classes:: Yes Outcomes/Goals:: Consume diet rich in vegs,fruits,whole grain/high fiber,fish,lean meat, Limit sat/trans fats,cholesterol & added salts & sugars and Other additional outcome/goals: Intervention/Plan:: Assess current eating habits and Other Additional plan/interventions 30-day Reassessments:: Progressing Reassessment Notes & Comments:: Pt to attend dietary teaching classes during cardiac rehab program. low sodium diet encouraged. Education Gave educational materials for:: Signs & symptoms of hypoglycemia, Signs & symptoms of hyperglycemia, Relate diabetes to coronary artery disease and Healthy eating Nutrition - 60-Day Assessment Weight Mgt (Other Care) Height: 5 ft 3 in Weight:: 165 lb 8 oz BMI: 29.2 Core - 30-Day Assessment Visit Date of Eval: 08/23/25 Session #:: 3 Medication Compliance Preventative Medication(s):: Aspirin, Clopidogrel/P2Y12 inhibit, Statin/lipid, Beta tesfaye and ARB (Angiotensi Rcap) H/O mental health issues: depression, anxiety, or addiction?: No Doesn’t believe in the benefits of treatment?: No Believes medications are unnecessary or harmful?: No Has a concern about medication side effects?: No Expresses concern over the cost of medications?: No Outcomes/Goals: Verbalizes medications,desired effect & common side effects @ DC, Pt self-reports following medication regimen, Keeps card in wallet w/medications listed by DC and Other additional outcome/goals: Interventions/plans: Instruct on medication effects & side effects, Review medication list w/patient every two weeks, Instruct importance of taking meds as ordered & assist problem solving and Other additional 30-day Reassessments:: Progressing Reassessment Notes & Comments:: reports taking medication as prescribed. Tobacco Use Tobacco Use: Non-smoker 30-day Reassessments:: Met Reassessment Notes & Comments:: quit 40 years ago. Hypertension Hypertension Diagnosis:: Hypertension ICD-10 I10 Resting Blood Pressure:: 128/66 [place] [employer] Hypertension Guidelines Peak Exercise Blood Pressure:: 148/62 Outcomes/Goals: Able to verbalize/achieve optimal blood pressure <130/80, Inco rporates diet changes & exercise for blood pressure control by DC and Other additional outcomes/goals Interventions/plan: Instruct on optimal blood pressure, hypertension & med ications, Instruct on effects of sodium, alcohol, stress, exercise &hypertension and Other additional plan/interventions 30 day Reassessments:: Progressing Reassessment Notes & Comments:: Pt maintaining BP within normal parameters during exercise. Tobacco Cessation Referral Smoking Cessation Referral:: No Individual Education/Counseling:: No Education Schedule Given:: Yes Core - Final Assessment Hypertension [place] [employer] Hypertension Guidelines Reassessment Notes & Comments:: Pt maintaining BP within normal parameters during exercise. Core - 90 Day Assessment Hypertension [place] [employer] Hypertension Guidelines Reassessment Notes & Comments:: Pt maintaining BP within normal parameters during exercise. Psychosocial - 30-Day Assess VIsit Date of Eval: 08/23/25 Session #:: 3 History of previous Mental disease:: No Psychosocial Test Tool Used:: PHQ-9 Questionnaire phq-9 Severity Total Score:: 6 Referral to Behavioral Health PS - Interventions: Yes: Attend Stress Management Classes Outcomes/Goals: See list Psychosocial Outcomes/Goals:: ID's personal stressors & 2 strategies to manage stress by discharge Intervention/Plan: See List Interventions/Plan:: Assess stressors,coping strategies & signs of derpression on admission, Instruct/assist pt to develop coping & personal stress Mgt strategies, Refer to Behavioral Health if appropriate, Refer to Physician if appropriate, Instruct patient to recognize signs & symptoms of depression and Instruct patient to recog 30-day Reassessments: 30 day Reassessments:: Progressing Reassessment Notes & Comments:: Pt to attend stress and emotion classes during cardiac rehab. Psychosocial - 60-Day Assess Referral to Behavioral Health PS - Interventions: Yes: Attend Stress Management Classes Outcomes/Goals: See list Psychosocial Outcomes/Goals:: ID's personal stressors & 2 strategies to manage stress by discharge Psychosocial - 90-Day Assess Referral to Behavioral Health PS - Interventions: Yes: Attend Stress Management Classes Psychosocial - Final Assessmen Referral to Behavioral Health PS - Interventions: Yes: Attend Stress Management Classes Nutrition - 90-Day Assessment Weight Mgt (Other Care) Height: 5 ft 3 in Weight:: 165 lb 8 oz BMI: 29.2 Nutrition - Final Assessment Weight Mgt (Other Care) Height: 5 ft 3 in Weight:: 165 lb 8 oz BMI: 29.2
[2025-08-23 08:32] VITALS: BP 128/66; BMI 29.2
== END 2025-08-29 23:59 ==
LOC: CR 10:15
PROVIDERS: PCP Internal Medicine; Referring Provider Internal Medicine Cardiovascular Disease; Visit Provider Internal Medicine Cardiovascular Disease
DX: I21.9 Acute myocardial infarction, unspecified (principal); I24.9 Acute ischemic heart disease, unspecified; I10 Essential (primary) hypertension; E11.9 Type 2 diabetes mellitus without complications; Z95.5 Presence of coronary angioplasty implant and graft; I25.119 Atherosclerotic heart disease of native coronary artery with unspecified angina pectoris; I21.4 Non-ST elevation (NSTEMI) myocardial infarction
CPT/HCPCS: 93798

== ENCOUNTER 2025-08-30 09:25 | Outpatient (RCR) | payer MEDICARE, OTHER, SELFPAY ==
--- NOTE | 2025-09-20 10:08 | PCM.CR.ITP ---
Exercise - Initial Assessment Physician Prescribed Exercise Modalities: Treadmill, Schwinn Airdyne AD-7 and SciFit Stepper Psychosocial - Initial Assess Referral to Behavioral Health PS - Interventions: Yes: Attend Stress Management Classes Exercise - 30-day Assessment Physician Prescribed Exercise Modalities: Treadmill, Schwinn Airdyne AD-7 and SciFit Stepper Exercise - 60-day Assessment Visit Date of Eval: 09/20/25 Session #:: 3 (Pt is on Hold. has job commitments. should be back after ashwini. ) Physician Prescribed Exercise Modalities: Treadmill, Schwinn Airdyne AD-7 and SciFit Stepper Frequency: 3x/week for 12 weeks [36 sessions] Intensity: 60-80% of age predicted maximum heart rate reserve Duration: 30 - 45 minutes METs - Progression 0.5-1.0 weekly:: 0.5 Current METSs:: 3 Target Heart Rate:: 83-104 Target RPE 11-14 Current RPE:: 12-16 Outcomes & Goals Goals:: Verbalizes understanding of THR, RPE & goal METS by session 6, Documents in home exercise log/reports 30 min aerobic 5 day/wk by DC, Demonstrates accurate pulse taking by DC and Other additional outcome/goals: see below Intervention & Plan Exercise Program Goals: Instruct on personal THR & RPE, Instruct on MET level & personal MET goal, Show patient to take own pulse /validate performance until accurate, Instruct on home exercise and Other additional plan/int 30-day Reassessments 30 day Reassessments:: Progressing Reassessment Notes & Comments:: Pt is on hold. she has job commitments that she is attending to, but should be back to rehab after . unable to assess progress at this time as she hasnt attended. Physical Activity Home Exercise Physical Activity - Home Exercise: Safe Exercise, Warm-up, Self-monitoring, Cool-Down, Home Exercise > 30 min Daily and Sitting Time <3 hours/daily Outcomes & Goals Outcomes/Goals: Demonstrates correct Warm-up/exercise Cool-Down (S3) if = 2.5 METs, Verbalizes symptoms of exercise intolerance by Session 3 (S3), Demonstrate safe equipment use (S3) & follows exercise prescrition (6) and Other: See below Intervention & Plan Plan/Intervention: Instruct warm-up & cool-down if exercising at > 2 METs, Instruct on symptoms of exercise intolerance & actions to take, Instruct & monitor on saf, Assess intial functional capacity & safety risk and Other See below 30-day Reassessments 30 day Reassessments:: Progressing Reassessment Notes & Comments:: unable to assess, Pt is on hold. should be back after ashwini. Exercise - 90-day Assessment Physician Prescribed Exercise Modalities: Treadmill, Schwinn Airdyne AD-7 and SciFit Stepper Exercise - Final/Discharge Physician Prescribed Exercise Modalities: Treadmill, Schwinn Airdyne AD-7 and SciFit Stepper Nutrition - 60-Day Assessment Program Goals Nutrition Program Goals Patient has diagnosis of Hyperlipidemia (ICD E78)?: Yes Visit Date of Eval: 09/20/25 Session #:: 3 (pt is on hold.) Cholesterol/Lipids (Other Core Measures) Outcomes/Goals: Pt IDs own risk factors & lifestyle modifications by Session 10, Verbalizes symptoms of angina & response by session 3., Pt independently manages and Other Additional Outcomes/Goals: Intervention/Plan: Advocate for lipid panel cholesterol medication if applicable, Instruct on personal lipid levels & lipid goals/NCEP guidelines, Instruct on cholesterol and Other additional plan/int Referral to dietitian:: No 30-day Reassessments:: Progressing Reassessment Notes & Comments:: Pt is hold. unable to reassess at this time. Diabetes (Other Core Measures) Diabetes Type: Diagnosis Type II ICD-10 E11 Insulin dependent injection/pump?: No Non-Insulin Dependent?: Yes Do you monitor your blood sugar at home?: No Referral to Diabetic Clinic:: No Outcomes/Goals:: Able to state symptoms of, Able to state, Able to state and Other additional 30-day Reassessments:: Progressing Reassessment Notes & Comments:: pt is on hold. unable to reassess. Weight Mgt (Other Care) Outcomes/Goals: Pt sets, maintains & shows weight loss goal & trend during rehab and Other additional outcomes/goals Intervention/Plan: Instruct on ideal BMI & set weight loss goal w/patient, Assist pt to ID & incorporate diet changes for weight loss by S9, Refer to Structured Weight Loss program as appropriate, Encourage goal of using 250-300dcal per session for weight loss and Other additional plan/interventions 30 day Reassessments:: Progressing Reassessment Notes & Comments:: pt is on hold, unable to reasses. Healthy Eating Habits Will attend diet classes:: No Outcomes/Goals:: Consume diet rich in vegs,fruits,whole grain/high fiber,fish,lean meat and Limit sat/trans fats,cholesterol & added salts & sugars Intervention/Plan:: Assess current eating habits 30-day Reassessments:: Progressing Reassessment Notes & Comments:: Pt is on hold. unable to assess. Education Gave educational materials for:: Signs & symptoms of hypoglycemia, Signs & symptoms of hyperglycemia, Relate diabetes to coronary artery disease and Healthy eating Core - 60-Day Assessment Visit Date of Eval: 09/20/25 Session #:: 3 (pt is on hold) Medication Compliance Outcomes/Goals: Verbalizes medications,desired effect & common side effects @ DC, Pt self-reports following medication regimen, Keeps card in wallet w/medications listed by DC and Other additional outcome/goals: Interventions/plans: Instruct on medication effects & side effects, Review medication list w/patient every two weeks, Instruct importance of taking meds as ordered & assist problem solving and Other additional 30-day Reassessments:: Progressing Reassessment Notes & Comments:: pt is on hold unable to reassess. Tobacco Use Tobacco Use: Non-smoker Hypertension Hypertension Diagnosis:: Hypertension ICD-10 I10 [place] [employer] Hypertension Guidelines Outcomes/Goals: Able to verbalize/achieve optimal blood pressure <130/80, Incorporates diet changes & exercise for blood pressure control by DC and Other additional outcomes/goals 30 day Reassessments:: Progressing Reassessment Notes & Comments:: pt is on hold. unable to assess Tobacco Cessation Referral Smoking Cessation Referral:: No Individual Education/Counseling:: No Education Schedule Given:: Yes Psychosocial - 30-Day Assess Referral to Behavioral Health PS - Interventions: Yes: Attend Stress Management Classes Outcomes/Goals: See list Psychosocial Outcomes/Goals:: ID's personal stressors & 2 strategies to manage stress by discharge and Other Additional outcome/goals: Psychosocial - 60-Day Assess VIsit Date of Eval: 09/20/25 Session #:: 3 Referral to Behavioral Health PS - Interventions: Yes: Attend Stress Management Classes Outcomes/Goals: See list Psychosocial Outcomes/Goals:: ID's personal stressors & 2 strategies to manage stress by discharge and Other Additional outcome/goals: Intervention/Plan: See List Interventions/Plan:: Assess stressors,coping strategies & signs of derpression on admission, Instruct/assist pt to develop coping & personal stress Mgt strategies, Refer to Behavioral Health if appropriate, Refer to Physician if appropriate, Instruct patient to recognize signs & symptoms of depression, Instruct patient to recog and Other additional plan/intervention 30-day Reassessments: 30 day Reassessments:: Progressing Reassessment Notes & Comments:: pt is on hold unable to reassess/ Psychosocial - 90-Day Assess Referral to Behavioral Health PS - Interventions: Yes: Attend Stress Management Classes Psychosocial - Final Assessmen Referral to Behavioral Health PS - Interventions: Yes: Attend Stress Management Classes
== END 2025-09-29 23:59 ==
LOC: CR 09:25
PROVIDERS: PCP Internal Medicine; Referring Provider Internal Medicine Cardiovascular Disease; Visit Provider Internal Medicine Cardiovascular Disease
DX: I12.9 Hypertensive chronic kidney disease with stage 1 through stage 4 chronic kidney disease, or unspecified chronic kidney disease (principal); I24.9 Acute ischemic heart disease, unspecified; I10 Essential (primary) hypertension; E11.9 Type 2 diabetes mellitus without complications; Z95.5 Presence of coronary angioplasty implant and graft; I25.119 Atherosclerotic heart disease of native coronary artery with unspecified angina pectoris; I21.4 Non-ST elevation (NSTEMI) myocardial infarction
CPT/HCPCS: 93798

== ENCOUNTER → 2025-09-08 | Outpatient (CLI) | payer MEDICARE, OTHER, SELFPAY ==
[2025-08-23 08:32] VITALS: BMI 29.2
[2025-09-08 13:30] LABS: Hematocrit 36.5 % (37-47); Hemoglobin 11.4 g/dL (12.0-15.0); Immature Granulocytes Count 0.050 X10^3/uL (0.0-0.0); Mean Corp Hgb Conc 31.2 g/dL (32-36); Mean Corpuscular Volume 90.6 fL (81-99); Mean Platelet Vol. 8.9 fl (6.2-12.0); NRBC Flagged by Analyzer 0 % (0-5); Platelet Count 324 K/mm3 (150-450); RBC Distribution Width CV 13.6 % (11.6-14.6); RBC Distribution Width SD 45.0 fl (35.1-43.9); Red Blood Count 4.03 M/mm3 (4.2-5.4); White Blood Count 7.6 K/mm3 (4.4-11.0)
[2025-09-08 14:45] LABS: AST(SGOT) 19 U/L (<=31); Alanine Aminotransfer ALT/SGPT 18 U/L (<=34); Albumin, Serum 4.3 g/dL (3.4-4.8); Alkaline Phosphatase 82 U/L (35-104); Anion Gap 13 (5-15); BUN 20 mg/dL (4-19); BUN/Creat Ratio 28.3 RATIO (10-20); Calcium,Total 9.5 mg/dL (7.6-11.0); Carbon Dioxide 24.3 mmol/L (21.0-32.0); Chloride 101 mmol/L (98-108); Cholesterol 151 mg/dL (<=200); Globulin 2.7 g/dL (2.2-4.2); Glucose 117 mg/dL (70-99); Low Density Lipoprotein Calc. 66 mg/dL; Magnesium 1.9 mg/dL (1.5-2.2); Potassium 4.0 mmol/L (3.3-5.1); Triglycerides 147 mg/dL; Very Low Density Lipoprotein 29 mg/dL (5-40); cholesterol:hdl ratio screen 2.53
[2025-09-08 15:14] LABS: Free T3 2.6 pg/mL (2.18-3.98); Vitamin B12 3436 pg/mL (180-914); Vitamin D,25 Hydroxy 31.6 ng/mL (30-100)
== END | disposition home or self-care (01) ==
LOC: LAB 12:48
PROVIDERS: PCP Internal Medicine; Referring Provider Internal Medicine; Visit Provider Internal Medicine
DX: Z13.220 Encounter for screening for lipoid disorders (principal); E11.9 Type 2 diabetes mellitus without complications; I25.2 Old myocardial infarction; E78.00 Pure hypercholesterolemia, unspecified; I25.119 Atherosclerotic heart disease of native coronary artery with unspecified angina pectoris; I10 Essential (primary) hypertension; R53.83 Other fatigue; E55.9 Vitamin D deficiency, unspecified; E53.8 Deficiency of other specified B group vitamins
CPT/HCPCS: 36415; 80053; 80061; 82306; 82607; 83036; 83735; 84439; 84443; 84481; 85025